=== PATIENT | female | born 1945 | race Caucasian/White ===

== ENCOUNTER 2020-03-12 13:04 | Outpatient (REF) | payer MEDICARE, MEDICAID, SELFPAY | END 2020-03-12 13:05 | disposition home or self-care (01) | LOC: HO.LAB 13:04 | PROVIDERS: PCP Physician Assistant; Visit Provider Internal Medicine | DX: Z20.828 Contact with and (suspected) exposure to other viral communicable diseases (principal) | CPT/HCPCS: 87635 ==

== ENCOUNTER 2020-05-07 12:46 | Outpatient (REF) | payer MEDICARE, MEDICAID, SELFPAY ==
[2020-05-07 13:53] LABS: Glucose Urine UA 250 MG/DL (NEG); Leukocyte Esterase Urine NEG (NEG); Nitrite Urine NEG (NEG); Specific Gravity - Urine 1.015 (1.005-1.025); Urine Blood NEG (NEG); Urine Ketones NEG (NEG); Urine Protein NEG (NEG-TRACE)
[2020-05-07 13:55] LABS: Appearance Urine CLEAR; Color Urine YELLOW
[2020-05-07 14:32] LABS: Creatinine Urine 71.04 mg/dL
== END 2020-05-07 12:47 | disposition home or self-care (01) ==
LOC: HO.HMGCLDS 12:46
PROVIDERS: PCP Physician Assistant; Visit Provider Physician Assistant
DX: R30.0 Dysuria (principal); I10 Essential (primary) hypertension
CPT/HCPCS: 81003; 82043

== ENCOUNTER 2020-06-16 09:10 | Emergency (ER) | payer MEDICARE, MEDICAID, SELFPAY ==
[2020-06-16 09:38] VITALS: BP 112/69; PULSE 72; RESP 16; TEMP 37.1; O2SAT 98; BMI 42.1
--- NOTE | 2020-06-16 09:54 | CT_ITS ---
EXAMINATION: CT ABDOMEN AND PELVIS WITHOUT CONTRAST CLINICAL INFORMATION: Right flank/hip pain COMPARISON: Previous CT of the abdomen and pelvis most recent August 2018 TECHNIQUE: Multidetector volumetric imaging was performed from the superior aspect of the liver through the pubic symphysis. Sagittal and coronal reformatted images were obtained on the technologist's workstation. This CT examination was performed using dose optimization techniques as appropriate, variously including the following: *Automated exposure control *Adjustment of mA and/or kV according to patient size (this includes techniques or standardized protocols for targeted exams where dose is matched to indication/reason for exam; i.e. extremities or head) *Use of iterative reconstruction technique DLP: 1330 mGy-cm FINDINGS: LUNG BASES: The visualized lung bases are clear. The heart is slightly enlarged. There are pacemaker leads. LIVER, GALLBLADDER, AND BILIARY TREE: The liver is normal in size, shape, and attenuation. No focal hepatic lesion or biliary ductal dilatation is present. The gallbladder has been removed. PANCREAS: Unremarkable. SPLEEN: Unremarkable. ADRENAL GLANDS: Unremarkable. KIDNEYS AND URETERS: The kidneys are normal in size, shape, and attenuation. No hydronephrosis, hydroureter, or calculi seen. No perinephric stranding. BLADDER: Unremarkable. GASTROINTESTINAL TRACT: There is stool seen throughout the colon questionable for constipation. The small and large bowel are otherwise unremarkable. The appendix is not identified with certainty. The appendix may be a small for example axial image [id number] series 3. No inflammatory changes in the right lower quadrant are seen to suggest appendicitis. ABDOMINAL WALL: There are multiple anterior abdominal wall hernias. There is a right upper abdominal wall ventral hernia containing fat that measures 4.5 cm. There is a right low ventral or supraumbilical hernia containing fat that measures 10 x 8 x 4 cm. There is a small umbilical hernia containing fat that measures 3 cm. LYMPH NODES: Normal. VASCULAR: Unremarkable. PELVIC VISCERA: There are small calcifications in the uterus. The uterus and adnexa are otherwise unremarkable. OSSEOUS STRUCTURES: There are degenerative changes of the spine. There are degenerative changes of the hip joints. CT/CT abdomen pelvis wo con IMPRESSION: Stool throughout the colon questionable for constipation. Multiple abdominal wall hernias containing fat. 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
--- NOTE | 2020-06-16 09:55 | XR_ITS ---
EXAMINATION: XR CHEST CLINICAL INFORMATION: Pain and leg swelling. COMPARISON: Chest 06/18/2018 TECHNIQUE: Chest FINDINGS: There is mild cardiomegaly with normal pulmonary vascularity. The lungs are expanded and clear. There are pacer electrodes in right atrium and right ventricle. No gross bony abnormality seen XR/XR chest 2V IMPRESSION: Cardiomegaly without congestion. Pacer electrodes in right atrium and right ventricle. No gross bony abnormality.
--- NOTE | 2020-06-16 09:55 | ECG_ITS ---
Test Reason : BACK PAIN Blood Pressure : / mmHG Vent. Rate : 081 BPM Atrial Rate : 081 BPM P-R Int : 212 ms QRS Dur : 184 ms QT Int : 442 ms P-R-T Axes : 065 085 062 degrees QTc Int : 513 ms Sinus rhythm with 1st degree A-V block with Ventricular-paced rhythm Abnormal ECG When compared with ECG of 18-JUN-2018 04:20, T wave inversion less evident in Inferior leads Referred By: Flory Fisher Electronically Signed By:OZIEL CAVAZOS MD
--- NOTE | 2020-06-16 09:58 | ED_ITS ---
HPI - Back Pain/Injury General Chief Complaint: Back Pain/Injury Stated Complaint: back pain Time Seen by Provider: 06/16/20 09:35 Source: patient and EMS Mode of arrival: EMS Limitations: language barrier (LAO-SPEAKING) History of Present Illness HPI Narrative: 74yoF c PMHx of CAD, atrial fibrillation c pace maker in place, type 2 diabetes mellitus, HTN, HLD, lower extremity edema, COPD, nocturnal hypoxemia and GERD presenting to the ED with complaints of lower back pain/right hip pain for the past 2 days. Denies any trauma. Denies any other symptoms complaints or concerns at this time. Patient reports she had called her primary care provider and they had outpatient x-rays for her for today although she was unable to walk down her some flight of stairs from her apartment complex therefore her son called the ambulance. MD elicited complaint: back pain Pertinent past history: prior back pain Onset (ago): day(s) (Two days) Timing: constant Severity: moderate Similar Symptoms Previously: Yes Quality: aching Location: lumbar spine, right flank and right lower back Radiation: none Exacerbating factors: movement and walking Relieving factors: none Associated symptoms: difficulty walking Work related injury: No Related Data Home Medications Medication Instructions Recorded Confirmed albuterol sulfate 90 mcg/actuation 1 puff PO Q4H PRN 03/12/20 06/15/20 aerosol inhaler alcohol swabs pad TOPICAL TID 03/12/20 06/15/20 amitriptyline 25 mg tablet 25 mg PO BEDTIME 03/12/20 06/15/20 blood sugar diagnostic #10 ea 03/12/20 06/15/20 dabigatran etexilate 150 mg capsule 150 mg PO BID 03/12/20 06/15/20 docusate sodium 100 mg capsule 100 mg PO BID PRN 03/12/20 06/15/20 dulaglutide 0.75 mg/0.5 mL 0.75 mg SUBCUT QWEEK 03/12/20 06/15/20 subcutaneous pen injector furosemide 40 mg tablet 40 mg PO DAILY 03/12/20 06/15/20 insulin aspart U-100 100 unit/mL unit SUBCUT 03/12/20 06/15/20 (3 mL) subcutaneous pen isosorbide mononitrate 30 mg 30 mg PO DAILY 03/12/20 06/15/20 tablet,extended release 24 hr lorazepam 0.5 mg tablet 0.5 mg PO BID PRN 03/12/20 06/15/20 gabapentin 300 mg capsule 300 mg PO BID 04/30/20 06/15/20 pen needle, diabetic 32 gauge x #50 ea 04/30/20 06/15/20 insulin aspart U-100 100 unit/mL 100 unit SUBCUT TID ml 05/27/20 06/15/20 (3 mL) subcutaneous pen insulin aspart U-100 100 unit/mL 5 unit SUBCUT TID 06/15/20 06/15/20 (3 mL) subcutaneous pen insulin degludec 100 unit/mL (3 20 unit SUBCUT BID 06/15/20 06/15/20 mL) subcutaneous pen Previous Rx's Medication Instructions Recorded ketoconazole 2 % topical cream 1 applic TOPICAL BID 30 Days #60 g 02/21/20 lancets 28 gauge #100 ea 02/21/20 blood pressure monitor #1 ea 03/12/20 humidifiers #1 ea 03/12/20 flecainide 100 mg tablet 100 mg PO BID #180 tab 03/26/20 losartan 100 mg tablet 100 mg PO DAILY #90 tab 03/26/20 ebkzdclj-niuojgepd-fcnunzaql 3.5 4 drp OTIC (EARS) Q8H 7 Days #10 ml 03/26/20 mg-10,000 unit/mL-1 % ear drops,susp atenolol 50 mg tablet 50 mg PO DAILY #30 tab 04/21/20 blood sugar diagnostic 1 strip MISCELLANEOUS QID #400 04/28/20 strip pen needle, diabetic 32 gauge x #100 ea 04/28/2005/18 pen needle, diabetic 32 gauge x #100 ea 04/30/20 1/ oxycodone 5 mg tablet 5 mg PO BID 30 Days #60 tab 05/14/20 insulin degludec 100 unit/mL (3 65 unit SUBCUT BID 30 Days #39 ml 05/27/20 mL) subcutaneous pen ketoconazole 2 % topical cream 1 appl TOPICAL BID 30 Days #60 g 05/27/20 nitrofurantoin macrocrystal 100 mg 100 mg PO BID 7 Days #14 cap 05/28/20 capsule baclofen 10 mg tablet 10 mg PO BID 10 Days #20 tab 06/04/20 colchicine 0.6 mg tablet 0.6 mg PO DAILY #90 tab 06/08/20 simvastatin 40 mg tablet 40 mg PO BEDTIME #90 tab 06/08/20 hydrocortisone 1 % topical cream 1 appl TOPICAL BID 30 Days #28 g 06/10/20 clotrimazole-betamethasone 1 1 appl TOPICAL BID 30 Days #45 g 06/11/20 %-0.05 % topical cream canagliflozin 100 mg tablet 100 mg PO DAILY 30 Days #30 tab 06/15/20 acetaminophen-codeine 1 tab PO Q8H PRN #10 tab 06/16/20 cyclobenzaprine 10 mg PO TID PRN #10 tab 06/16/20 docusate sodium [Colace] 100 mg PO BID #10 cap 06/16/20 Allergies Allergy/AdvReac Type Severity Reaction Status Date / Time dapagliflozin [From [facility]] Allergy Unknown yeast Verified 06/15/20 14:16 infection metformin Allergy Unknown Diarrhea Verified 06/15/20 14:16 Review of Systems Review of Systems: Constitutional : No trauma, No Weight loss, No Fever, No Chills, ENT/Mouth : No Hearing loss, No Ear Pain, No Nasal Congestion, No Sinus Pain, No Hoarseness, No sore throat, No Rhinorrhea, No Swallowing Difficulty Cardiovascular : No Chest Pain, No SOB Respiratory : No Cough, No Dyspnea Gastrointestinal : No Nausea, No Vomiting, No Diarrhea, No abdominal Pain, No Hematochezia, No Melena Genitourinary : No Dysuria, No Urinary Frequency, No Hematuria, No Urinary or Bowel Incontinence/retention Musculoskeletal : + Back pain, No neck pain, No joint stiffness, No joint swelling Skin : No Skin Lesions, No rash or signs of infection Neuro : No Weakness, No radiation, No Numbness, No Paresthesias, No headache, no loss of bowel or bladder incontinence, no saddle anesthesia, Focal weakness, No radiation Denies history of IV drug usage. Yes all other systems are reviewed and are negative [facility] Past Medical History Attestation statement: The following information was validated with the patient. Medical History Pacemaker Surgical History History of cataract surgery History of pacemaker Family History Family History Father No problems noted. Mother No problems noted. Social History Social History Alcohol intake: never Smoking Status: Never smoker Smoked in Last 30 Days: No Use of substances other than those prescribed or required for medical reasons: No Advance Directives: Yes Advance Directives Information Provided: Yes Advance Directives on File: No Physical Exam Vital Signs: Vital Signs: Last Vital Signs Temp 98.9 F 06/16/20 14:59 Pulse 74 06/16/20 14:59 Resp 16 06/16/20 14:59 BP 127/48 L 06/16/20 14:59 Pulse Ox 96 06/16/20 14:59 Body Mass Index 42.1 vital signs have been reviewed as normal and appeared to be correct. Blood pressure normal. Heart rate normal. Respiration rate normal. Temperature normal. Oxygen saturation normal. Appearance: Alert. Oriented X3. No acute distress. Head: Normal external exam. Normocephalic. Atraumatic. No Polanco signs noted. No raccoon eyes noted Eyes: PERRLA. EOMI. Conjunctiva and sclera normal. Eyelids normal. ENT: EAC normal. TM's Normal. Pharynx normal. Uvula midline. Moist mucous membranes. No trismus noted. No drooling noted. No muffled voice noted. Neck: Normal inspection. Neck supple. FROM. No adenopathy. Thyroid Normal. No meningeal signs. No neck mass noted. CVS: Normal heart rate and rhythm. Heart sound normal. No murmurs noted. Pulses normal throughout. Respiratory: No respiratory distress. Painless inspiration. Breath sounds normal. No wheezes/rales/rhonchi noted. Chest nontender. No accessory muscle usage noted or decreased air movement noted. Abdomen: Soft and nontender. Bowel sounds normal in all 4 quadrants. No distention noted. No organomegaly noted. No visible injury noted. Back: No CVA tenderness. Full range of motion noted. No obvious deformities, or edema. Mild para-spinal muscular tenderness from lumbar region to coccyx. Full ROM in back and lower extremities. 5/5 strength hip extension/flexion, abduction, adduction. Mild Lumbar pain with hip flexion against resistance. Straight leg raise test negative on right; Straight leg raise test negative on left; Reflexes normal ankle and knee bilaterally; EHL motor strength normal bilaterally Skin: Skin warm and dry. Normal skin color. Normal skin turgor. No rashes /lesions/lacerations noted. Extremities: Bilateral +2 pitting edema to lower extremities. No calf tenderness noted. Extremities exhibit normal range of motion. Extremities nontender. Vascular: +2 pedal pulses b/l. Neuro: Oriented X 3. No motor deficit. No sensory deficit. Reflexes normal. Course Course Course Narrative: Pt c likely muscular pain, but could be herniated disc. Neuro exam shows no deficits. Not c/w AAA/epidural abscess/dissection.No high risk Hx (Incont, fever, immunosupp, recent surgery/LP, coag, signif trauma, wt loss, puls mass, hx/o Ca, TB, or IVDU) to warrant MRI today. Not cauda equina syndrome. Not consistent with spinal fracture. - patient is alert and oriented x3. Not in any acute distress. Vital signs are stable within normal limits. On exam patient is noted to have bilateral lower extremity pitting edema although no calf tenderness and she has positive distal pulses. No focal neuro deficits noted. Mild pain to right hip/right lumbar spine/right flank. No obvious deformities noted. - therefore will obtain labs including BNP, an EKG, CT scan of abdomen and pelvis without contrast to evaluate for possible kidney stones, UA to evaluate for possible UTI or pyelonephritis. I offered the patient pain medication although she is declining at this time due to she reports she did not eat this morning. Will re-evaluate. Reevaluation(s) Reevaluation #1: - Magnesium 1.3. - troponin 11.9. Second troponin 14.2 therefore negative delta. Patient denies any chest pain and EKG is similar compared to prior EKG. - all other labs are within normal limits. - UA within normal limits no evidence of UTI. COVID/flu/RSV negative. - CXR revealed cardiomegaly without congestion pacer electrodes and right atrium and right ventricle. No gross bony abnormality noted. - CT scan of abdomen and pelvis revealed constipation, multiple abdominal wall hernias containing fat and severe degenerative changes of spine and hips no other acute processes noted. - replacing the patient's magnesium with 2 g of magnesium IV at this time. Will give the patient Tylenol with codeine for her hip pain. - I consulted with the patient's daughter and recommended physical therapy with short-term rehab although they are refusing short-term rehab placement due to they report the mother will not want to go to short-term rehab although they would like to have physical therapy in the home therefore case management is involved. - patient can be discharged after the magnesium with symptomatic treatment along with instructions to return if any new or worsening symptoms. Case management will be speaking with the daughter for outpatient physical therapy with [facility]. Patient, daughter and family understand and agree plan. Time: 14:53 MDM - Back Pain/Injury Medical Records Attestation: I reviewed the patient's medical records. Lab Data Attestation: I reviewed the patient's lab results. Result diagrams: 06/16/20 10:49 06/16/20 10:49 Labs: Lab Results 06/16/20 06/16/20 06/16/20 Range/Units 10:44 10:49 10:49 WBC 8.5 (4.8-10.8) X10*3/uL RBC 4.49 (4.20-5.50) X10*6/uL Hgb 12.7 (12.0-16.0) g/dl Hct 38.5 (37-47) % MCV 85.7 (80-98) fL MCH 28.3 (27.0-33.0) pg MCHC 33.0 (31.0-35.0) g/dl RDW 12.9 (11.0-16.0) % Plt Count 201 (160-400) X10*3/uL MPV 10.5 (9.4-12.3) fL Immature Gran % (Auto) 0.6 H (0.0-0.4) % Neut % (Auto) 67.9 (45-73) % Lymph % (Auto) 23.3 (20-40) % Cross % (Auto) 6.5 (2-11) % Eos % (Auto) 1.6 (0-4) % Baso % (Auto) 0.1 (0-2) % Lymph # (Auto) 2.0 (1.2-4.9) X10*3/uL Cross # (Auto) 0.6 (0.1-1.2) X10*3/uL Eos # (Auto) 0.1 (0.0-0.4) X10*3/uL Baso # (Auto) 0.0 (0.0-0.2) X10*3/uL Abs Immat Gran (auto) 0.05 H (0.00-0.03) X10*3/uL Absolute Neuts (auto) 5.8 (2.0-8.3) X10*3/uL Absolute Nucleated RBC 0.000 (0.0-0.012) X10*3/uL Nucleated RBC % (auto) 0.0 (0.0-0.2) /100WBC PT 14.2 H (10.8-13.0) SEC INR 1.2 H (0.9-1.1) Sodium (135-145) mmol/L Potassium (3.3-5.1) mmol/L Chloride (96-108) mmol/L Carbon Dioxide (22-29) mmol/L Anion Gap (12-20) BUN (9-16) mg/dL Creatinine (0.5-1.4) mg/dL Estim Creat Clear Calc Estimated GFR POC Glucose (60-115) mg/dL Random Glucose (60-115) mg/dL Calcium (8.4-10.2) mg/dL Magnesium (1.6-2.6) mg/dL Total Bilirubin (0.0-1.0) mg/dL Direct Bilirubin (0.0-0.5) mg/dL AST (5-31) U/L ALT (0-31) U/L Alkaline Phosphatase (39-117) U/L Troponin I High Sens (<3.5-17.0) ng/L B-Natriuretic Peptide (<100) pg/mL Total Protein (6.5-8.0) g/dL Albumin (3.5-5.0) g/dL Urine Color Urine Appearance Urine pH (5.0-8.0) Ur Specific Cay[place] (1.005-1.025) Urine Protein (NEG-TRACE) MG/DL Urine Glucose (UA) (NEG) MG/DL Urine Ketones (NEG) MG/DL Urine Blood (NEG) Urine Nitrite (NEG) Ur Leukocyte Esterase (NEG) Coronavirus (PCR) NEGATIVE (Negative) Influenza Type A (PCR) NEGATIVE (Negative) Influenza Type B (PCR) NEGATIVE (Negative) RSV RNA Qual (PCR) NEGATIVE (Negative) 06/16/20 06/16/20 06/16/20 Range/Units 10:49 10:49 10:49 WBC (4.8-10.8) X10*3/uL RBC (4.20-5.50) X10*6/uL Hgb (12.0-16.0) g/dl Hct (37-47) % MCV (80-98) fL MCH (27.0-33.0) pg MCHC (31.0-35.0) g/dl RDW (11.0-16.0) % Plt Count (160-400) X10*3/uL MPV (9.4-12.3) fL Immature Gran % (Auto) (0.0-0.4) % Neut % (Auto) (45-73) % Lymph % (Auto) (20-40) % Cross % (Auto) (2-11) % Eos % (Auto) (0-4) % Baso % (Auto) (0-2) % Lymph # (Auto) (1.2-4.9) X10*3/uL Cross # (Auto) (0.1-1.2) X10*3/uL Eos # (Auto) (0.0-0.4) X10*3/uL Baso # (Auto) (0.0-0.2) X10*3/uL Abs Immat Gran (auto) (0.00-0.03) X10*3/uL Absolute Neuts (auto) (2.0-8.3) X10*3/uL Absolute Nucleated RBC (0.0-0.012) X10*3/uL Nucleated RBC % (auto) (0.0-0.2) /100WBC PT (10.8-13.0) SEC INR (0.9-1.1) Sodium 139 (135-145) mmol/L Potassium 5.0 (3.3-5.1) mmol/L Chloride 101 (96-108) mmol/L Carbon Dioxide 30 H (22-29) mmol/L Anion Gap 13 (12-20) BUN 15 (9-16) mg/dL Creatinine 0.81 (0.5-1.4) mg/dL Estim Creat Clear Calc 82.5 Estimated GFR > 60 POC Glucose (60-115) mg/dL Random Glucose 274 H (60-115) mg/dL Calcium 9.8 (8.4-10.2) mg/dL Magnesium 1.3 L* (1.6-2.6) mg/dL Total Bilirubin 0.6 (0.0-1.0) mg/dL Direct Bilirubin 0.2 (0.0-0.5) mg/dL AST 19 (5-31) U/L ALT 17 (0-31) U/L Alkaline Phosphatase 102 (39-117) U/L Troponin I High Sens 11.9 (<3.5-17.0) ng/L B-Natriuretic Peptide 113 H (<100) pg/mL Total Protein 6.5 (6.5-8.0) g/dL Albumin 4.0 (3.5-5.0) g/dL Urine Color Urine Appearance Urine pH (5.0-8.0) Ur Specific Cayce (1.005-1.025) Urine Protein (NEG-TRACE) MG/DL Urine Glucose (UA) (NEG) MG/DL Urine Ketones (NEG) MG/DL Urine Blood (NEG) Urine Nitrite (NEG) Ur Leukocyte Esterase (NEG) Coronavirus (PCR) (Negative) Influenza Type A (PCR) (Negative) Influenza Type B (PCR) (Negative) RSV RNA Qual (PCR) (Negative) 06/16/20 06/16/20 06/16/20 Range/Units 11:16 12:03 13:54 WBC (4.8-10.8) X10*3/uL RBC (4.20-5.50) X10*6/uL Hgb (12.0-16.0) g/dl Hct (37-47) % MCV (80-98) fL MCH (27.0-33.0) pg MCHC (31.0-35.0) g/dl RDW (11.0-16.0) % Plt Count (160-400) X10*3/uL MPV (9.4-12.3) fL Immature Gran % (Auto) (0.0-0.4) % Neut % (Auto) (45-73) % Lymph % (Auto) (20-40) % Cross % (Auto) (2-11) % Eos % (Auto) (0-4) % Baso % (Auto) (0-2) % Lymph # (Auto) (1.2-4.9) X10*3/uL Cross # (Auto) (0.1-1.2) X10*3/uL Eos # (Auto) (0.0-0.4) X10*3/uL Baso # (Auto) (0.0-0.2) X10*3/uL Abs Immat Gran (auto) (0.00-0.03) X10*3/uL Absolute Neuts (auto) (2.0-8.3) X10*3/uL Absolute Nucleated RBC (0.0-0.012) X10*3/uL Nucleated RBC % (auto) (0.0-0.2) /100WBC PT (10.8-13.0) SEC INR (0.9-1.1) Sodium (135-145) mmol/L Potassium (3.3-5.1) mmol/L Chloride (96-108) mmol/L Carbon Dioxide (22-29) mmol/L Anion Gap (12-20) BUN (9-16) mg/dL Creatinine (0.5-1.4) mg/dL Estim Creat Clear Calc Estimated GFR POC Glucose 218 H (60-115) mg/dL Random Glucose (60-115) mg/dL Calcium (8.4-10.2) mg/dL Magnesium (1.6-2.6) mg/dL Total Bilirubin (0.0-1.0) mg/dL Direct Bilirubin (0.0-0.5) mg/dL AST (5-31) U/L ALT (0-31) U/L Alkaline Phosphatase (39-117) U/L Troponin I High Sens 14.2 (<3.5-17.0) ng/L B-Natriuretic Peptide (<100) pg/mL Total Protein (6.5-8.0) g/dL Albumin (3.5-5.0) g/dL Urine Color YELLOW Urine Appearance CLEAR Urine pH 6.0 (5.0-8.0) Ur Specific Cay[place] 1.010 (1.005-1.025) Urine Protein NEG (NEG-TRACE) MG/DL Urine Glucose (UA) NEG (NEG) MG/DL Urine Ketones NEG (NEG) MG/DL Urine Blood NEG (NEG) Urine Nitrite NEG (NEG) Ur Leukocyte Esterase NEG (NEG) Coronavirus (PCR) (Negative) Influenza Type A (PCR) (Negative) Influenza Type B (PCR) (Negative) RSV RNA Qual (PCR) (Negative) Imaging Data Chest x-ray: Attestation: I personally reviewed and interpreted this imaging study as follows: Radiologist's impression: FINDINGS: There is mild cardiomegaly with normal pulmonary vascularity. The lungs are expanded and clear. There are pacer electrodes in right atrium and right ventricle. No gross bony abnormality seen XR/XR chest 2V IMPRESSION: Cardiomegaly without congestion. Pacer electrodes in right atrium and right ventricle. No gross bony abnormality. CT scan of abdomen and pelvis without contrast: Attestation: I personally reviewed and interpreted this imaging study as follows: Radiologist's impression: FINDINGS: LUNG BASES: The visualized lung bases are clear. The heart is slightly enlarged. There are pacemaker leads. LIVER, GALLBLADDER, AND BILIARY TREE: The liver is normal in size, shape, and attenuation. No focal hepatic lesion or biliary ductal dilatation is present. The gallbladder has been removed. PANCREAS: Unremarkable. SPLEEN: Unremarkable. ADRENAL GLANDS: Unremarkable. KIDNEYS AND URETERS: The kidneys are normal in size, shape, and attenuation. No hydronephrosis, hydroureter, or calculi seen. No perinephric stranding. BLADDER: Unremarkable. GASTROINTESTINAL TRACT: There is stool seen throughout the colon questionable for constipation. The small and large bowel are otherwise unremarkable. The appendix is not identified with certainty. The appendix may be a small for example axial image 60-66 series 3. No inflammatory changes in the right lower quadrant are seen to suggest appendicitis. ABDOMINAL WALL: There are multiple anterior abdominal wall hernias. There is a right upper abdominal wall ventral hernia containing fat that measures 4.5 cm. There is a right low ventral or supraumbilical hernia containing fat that measures 10 x 8 x 4 cm. There is a small umbilical hernia containing fat that measures 3 cm. LYMPH NODES: Normal. VASCULAR: Unremarkable. PELVIC VISCERA: There are small calcifications in the uterus. The uterus and adnexa are otherwise unremarkable. OSSEOUS STRUCTURES: There are degenerative changes of the spine. There are degenerative changes of the hip joints. CT/CT abdomen pelvis wo con IMPRESSION: Stool throughout the colon questionable for constipation. Multiple abdominal wall hernias containing fat. 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 ECG Data Attestation: I personally reviewed and interpreted this ECG as follows: ECG interpretation date: 06/16/20 ECG interpretation time: 10:28 Interpretation: Sinus rhythm with 1st degree AV block with a ventricular rate of 81 with a left bundle branch block similar when compared to prior EKG on 06/18/2018 no acute ischemic changes noted today. Critical Care Time Critical Care Time Critical Care Time: Yes Total Critical Care Time: 60 Attestation: I personally attest to this time spent taking care of the patient Discharge Plan Discharge Clinical Impression: Cardiomegaly, Pedal edema, Elevated troponin, Constipation, Abdominal wall hernia, Degenerative joint disease of both hips, Degenerative joint disease (DJD) of lumbar spine, Low blood magnesium Patient Disposition: Home, Self-Care Instructions: Constipation (ED), Osteoarthritis (ED), Hypomagnesemia (ED), Degenerative Disc Disease (ED) Additional Instructions: Your offered physical therapy and short-term rehab today although you in your daughter refused therefore case management will reach out to visiting nurses [facility] for outpatient possibly in the home physical therapy. Return if any new or worsening symptoms. Follow up with her primary care provider. Continue taking medications as previously prescribed. Prescriptions: New acetaminophen-codeine 300-30 mg tablet 1 tab PO Q8H PRN (Reason: pain) Qty: 10 RF: 0 docusate sodium [Colace] 100 mg capsule 100 mg PO BID Qty: 10 RF: 0 cyclobenzaprine 10 mg tablet 10 mg PO TID PRN (Reason: muscle spasm) Qty: 10 RF: 0 No Action (DME) lancets [FreeStyle Lancets] 28 gauge misc See Rx Instructions .ROUTE .MEDSUPPLY Qty: 100 RF: 3 ketoconazole 2 % cream 1 applic topical BID 30 Days Qty: 60 RF: 3 evhfeemj-euilaphrr-FU 3.5-10,000-1 mg/mL-unit/mL-% drops,suspension 4 drp otic (ears) Q8H 7 Days Qty: 10 RF: 0 losartan 100 mg tablet 100 mg PO DAILY Qty: 90 RF: 1 flecainide 100 mg tablet 100 mg PO BID Qty: 180 RF: 1 atenolol 50 mg tablet 50 mg PO DAILY Qty: 30 RF: 3 FreeStyle Lite Strips Strip 1 strip miscellaneous QID Qty: 400 RF: 3 (DME) pen needle, diabetic 32 gauge x 1/4 needle See Rx Instructions ea subcut TID Qty: 100 RF: 3 oxycodone 5 mg tablet 5 mg PO BID 30 Days Qty: 60 RF: 0 insulin aspart U-100 100 unit/mL (3 mL) insulin pen 100 unit subcut TID RF: 0 ketoconazole 2 % cream 1 appl topical BID 30 Days Qty: 60 RF: 1 insulin degludec 100 unit/mL (3 mL) insulin pen 65 unit subcut BID 30 Days Qty: 39 RF: 2 baclofen 10 mg tablet 10 mg PO BID 10 Days Qty: 20 RF: 0 simvastatin 40 mg tablet 40 mg PO BEDTIME Qty: 90 RF: 2 colchicine [Colcrys] 0.6 mg tablet 0.6 mg PO DAILY Qty: 90 RF: 2 hydrocortisone 1 % cream 1 appl topical BID 30 Days Qty: 28 RF: 2 clotrimazole-betamethasone 1-0.05 % cream 1 appl topical BID 30 Days Qty: 45 RF: 3 (DME) FreeStyle Lite Strips Strip See Rx Instructions strip Not Applicable QID Qty: 10 RF: 0 albuterol sulfate 90 mcg/actuation HFA aerosol inhaler 1 puff PO Q4H PRNRF: 0 lorazepam 0.5 mg tablet 0.5 mg PO BID PRN (Reason: anxiety) RF: 0 Pradaxa 150 mg capsule 150 mg PO BID RF: 0 isosorbide mononitrate 30 mg tablet extended release 24 hr 30 mg PO DAILY RF: 0 amitriptyline 25 mg tablet 25 mg PO BEDTIME RF: 0 docusate sodium 100 mg capsule 100 mg PO BID PRNRF: 0 insulin aspart U-100 100 unit/mL (3 mL) insulin pen subcut RF: 0 Trulicity 0.75 mg/0.5 mL pen injector 0.75 mg subcut QWEEK RF: 0 furosemide 40 mg tablet 40 mg PO DAILY RF: 0 alcohol swabs Pads, Medicated topical TID RF: 0 (DME) blood pressure monitor [Blood Pressure Kit] Kit See Rx Instructions .ROUTE .MEDSUPPLY Qty: 1 RF: 0 (DME) humidifiers [Cool Mist Humidifier] Misc See Rx Instructions .ROUTE .MEDSUPPLY Qty: 1 RF: 0 insulin aspart U-100 [Novolog Flexpen U-100 Insulin] 100 unit/mL (3 mL) in sulin pen 5 unit subcut TID RF: 0 Tresiba FlexTouch U-100 100 unit/mL (3 mL) insulin pen 20 unit subcut BID RF: 0 Invokana 100 mg tablet 100 mg PO DAILY 30 Days Qty: 30 RF: 1 (DME) pen needle, diabetic 32 gauge x 5/32 needle See Rx Instructions ea .ROUTE .MEDSUPPLY Qty: 50 RF: 0 gabapentin 300 mg capsule 300 mg PO BID RF: 0 (DME) pen needle, diabetic [BD Ultra-Fine Micro Pen Needle] 32 gauge x 1/4 needle See Rx Instructions .ROUTE .MEDSUPPLY Qty: 100 RF: 3 nitrofurantoin macrocrystal 100 mg capsule 100 mg PO BID 7 Days Qty: 14 RF: 0 Referrals: [facility] [Outside] - 2 days ([facility], home OT/PT Services will start 06/18/20, please call above number if you have not heard from them by noon on 06/17/20) Micheal Biggs PA-C [Primary Care Provider] - 2 days Print Language: Djiboutian
[2020-06-16 10:56] LABS: MANUAL DIFF FLAG NO
[2020-06-16 11:00] LABS: Basophils Percent Auto 0.1 % (0-2); Eosinophils Absolute Auto 0.1 X10*3/uL (0.0-0.4); Eosinophils Percent Auto 1.6 % (0-4); Hematocrit 38.5 % (37-47); Hemoglobin 12.7 g/dl (12.0-16.0); Imm Gran Abs Auto 0.05 X10*3/uL (0.00-0.03); Imm Gran Pct Auto 0.6 % (0.0-0.4); Lymphocytes Percent Auto 23.3 % (20-40); Mean Corpuscular Hemoglobin 28.3 pg (27.0-33.0); Mean Corpuscular Volume 85.7 fL (80-98); Mean Platelet Volume 10.5 fL (9.4-12.3); Monocytes Absolute Auto 0.6 X10*3/uL (0.1-1.2); Monocytes Percent Auto 6.5 % (2-11); Neutrophils Absolute Auto 5.8 X10*3/uL (2.0-8.3); Neutrophils Percent Auto 67.9 % (45-73); Platelet Count 201 X10*3/uL (160-400); Red Blood Count 4.49 X10*6/uL (4.20-5.50); Red Cell Distribution Width 12.9 % (11.0-16.0); White Blood Count 8.5 X10*3/uL (4.8-10.8)
[2020-06-16 11:09] LABS: INTERNATIONAL NORM RATIO 1.2 (0.9-1.1); Prothrombin Time 14.2 SEC (10.8-13.0)
[2020-06-16 11:26] LABS: Appearance Urine CLEAR; Color Urine YELLOW; Glucose Urine UA NEG (NEG); Leukocyte Esterase Urine NEG (NEG); Nitrite Urine NEG (NEG); Urine Blood NEG (NEG); Urine Ketones NEG (NEG); Urine Protein NEG (NEG-TRACE)
[2020-06-16 11:31] LABS: B Type Natriuretic Peptide 113 pg/mL (<100); Troponin-I High Sensitivity 11.9 ng/L (<3.5-17.0)
[2020-06-16 11:36] VITALS: BP 126/42; PULSE 72; RESP 16; TEMP 37.1; O2SAT 94
[2020-06-16 11:53] LABS: Alanine Aminotransferase 17 U/L (0-31); Alkaline Phosphatase 102 U/L (39-117); Anion Gap 13 (12-20); Aspartate Amino Transferase 19 U/L (5-31); Bilirubin Direct 0.2 mg/dL (0.0-0.5); Bilirubin Total 0.6 mg/dL (0.0-1.0); Blood Urea Nitrogen 15 mg/dL (9-16); Calcium 9.8 mg/dL (8.4-10.2); Carbon Dioxide 30 mmol/L (22-29); Chloride 101 mmol/L (96-108); Creatinine Clr Calc Pharmacy 82.5; Estimated Glomerular Filt Rate > 60; Glucose Random 274 mg/dL (60-115); Magnesium 1.3 mg/dL (1.6-2.6); Sodium 139 mmol/L (135-145); Total Protein 6.5 g/dL (6.5-8.0)
[2020-06-16 11:54] LABS: Influenza A PCR NEGATIVE (Negative); Influenza B PCR NEGATIVE (Negative); Resp Syncy Virus RNA Qual PCR NEGATIVE (Negative); SARS COV2 PCR INHOUSE NEGATIVE (Negative)
[2020-06-16 12:06] LABS: Glucose, Whole Blood 218 mg/dL (60-115)
[2020-06-16 13:12] VITALS: BP 136/48; PULSE 71; RESP 18; TEMP 37.1; O2SAT 98
--- NOTE | 2020-06-16 14:03 | MHC.CM.PN ---
EMR REVIEWED, CM MET WITH PT AND MUD GRINDER AND PT REPORTS HER DAUGHTER ASSISTS HER WITH ALL OF HER CARE, PT REPORTS PROPERTY OFFICER (DAUGHTER) THROUGH [facility], PT REPORTS SHE HAS HOME O2 THROUGH [facility] AND THAT SHE USES IT AT NIGHT AND IN THE MORNING, DAUGHTER/HCP VERIFIED WITH CM THAT PT USES IT AT NIGHT ONLY, PT DID GIVE CM VERBAL PERMISSION TO SPEAK WITH DAUGHTER WHO VERIFIED PT HAS AN HCP ON FILE AT PT'S PCP OFFICE, COPY WAS REQUESTED BY CM. PT AND DAUGHTER ARE OK WITH [facility] AND HOME PT, PER DAUGHTER PT HAD PT THROUGH [facility] AND LIKED HER PHYSICAL THERAPIST SO CM WILL SEND REFERRAL TO [facility]. PER ER PROVIDER PT WILL NEED REPEAT TROPININ PRIOR TO BEING MEDICALLY CLEARED. DISCHARGE PLAN: HOME W/[facility] AND HOME PT, MAY NEED TRANSPORTATION HOME DUE TO NOT BEING ABLE TO MANAGE STAIRS AND PT HAS ONE FLIGHT OF STAIRS, UNSURE OF NUMBER.
[2020-06-16 14:35] LABS: Troponin-I High Sensitivity 14.2 ng/L (<3.5-17.0)
--- NOTE | 2020-06-16 14:43 | MHC.CM.PN ---
CM COMPLETED NEW HCP WITH PT DUE TO COPY FROM [facility] OFFICE NOT DATED WHERE REQUIRED, PT GIVEN ORIGINAL AND COPY UPLOADED TO [facility] AND PLACED IN FILE WITH PT'S PERMISSION.
[2020-06-16 14:59] VITALS: BP 127/48; PULSE 74; RESP 16; TEMP 37.2; O2SAT 96
[2020-06-16] MEDS: Magnesium Sulfate/H2O 2 GM/50 ML PIGGYBACK IV (15:02)
--- NOTE | 2020-06-16 15:50 | MHC.CM.PN ---
PT DISCHARGING HOME W/[facility] FOR CORRECTION AND HOME OT/PT, BLS TRANSPORT VIA [facility]. CM VERIFIED PT'S PARTNER WILL BE HOME W/PT'S DAUGHTER AND HCP FE [phone].
--- NOTE | 2020-06-16 16:55 | PC.NURSE ---
DC HOME. LEFT BY AMBULANCE
== END 2020-06-16 16:56 | disposition home or self-care (01) ==
PROVIDERS: Physician Assistant Medical; Emergency Provider Emergency Medicine; PCP Physician Assistant
DX: I51.7 Cardiomegaly (principal); R60.9 Edema, unspecified; R77.8 Other specified abnormalities of plasma proteins; K59.00 Constipation, unspecified; K43.9 Ventral hernia without obstruction or gangrene; M16.0 Bilateral primary osteoarthritis of hip; M47.896 Other spondylosis, lumbar region; E83.42 Hypomagnesemia; Z20.822 Contact with and (suspected) exposure to COVID-19; Z95.0 Presence of cardiac pacemaker; I48.91 Unspecified atrial fibrillation; E11.9 Type 2 diabetes mellitus without complications; E78.5 Hyperlipidemia, unspecified; J44.9 Chronic obstructive pulmonary disease, unspecified; K21.9 Gastro-esophageal reflux disease without esophagitis; Z79.899 Other long term (current) drug therapy; Z79.4 Long term (current) use of insulin
CPT/HCPCS: 0241U; 36415; 71046; 74176; 80048; 80076; 81003; 82947; 83735; 83880; 84484; 85025; 85610; 93005; 96365; 96366; 99284; 99291; J3475

== ENCOUNTER 2020-07-16 18:43 | Outpatient (REF) | payer MEDICARE, MEDICAID, SELFPAY | END 2020-07-16 18:44 | disposition home or self-care (01) | LOC: HO.LNP 18:43 | PROVIDERS: Visit Provider Physician Assistant | DX: L03.115 Cellulitis of right lower limb (principal) | CPT/HCPCS: 87071; 87205 ==

== ENCOUNTER → 2020-08-25 09:56 | Outpatient (REF) | payer MEDICARE, MEDICAID, SELFPAY ==
--- NOTE | 2020-08-25 09:30 | CA_ITS ---
Transthoracic Echocardiogram Patient (Last, First, Middle): Lizzie Lemus, Gender: Female Date of : 1945 Age: 74 Procedure Date: 08/25/2020 Procedure Type: Transthoracic Echocardiogram Location: OP Height: 165.1 cm Weight: 119.75 kg BSA: 2.23 m2 Heart Rate: bpm BP: 128 / 80 mmHg Community Assistant: Referring MD: Charity GIRON Symptoms: I42.9 CMP Study Quality: Fair ECG Rhythm: Sinus Conclusions: - Even with contrast, assessment is suboptimal. - The left ventricular systolic function is normal. The visually estimated ejection fraction is between 60-65%. Findings Procedure Information Contrast agent, definity, is being given per protocol without apparent complications. Left Ventricle Normal left ventricular cavity size. There is moderately increased left ventricular wall thickness. The left ventricular systolic function is normal. The visually estimated ejection fraction is between 60-65%. Regional wall motion abnormalities can not be excluded due to suboptimal endocardial definition. E/E prime ratio is between 8 and 15 consistent with indeterminate filling pressures. Evidence suggests grade I (mild) diastolic dysfunction. Prior Study Comparison No significant change compared to prior study dated: 04/01/2015. Measurements 2D Linear Measurements IVSd: 1.46 0.6-0.9/0.6-1.0 cm LVIDd: 4.63 3.9-5.3/4.2-5.9 cm LVIDd Index: 2.08 2.4-3.2/2.2-3.1 cm/m2 LVIDs: 3.15 2.0-3.6 cm LVPWd: 1.42 0.7-1.1 cm LV Mass: 337.28 67-162/88-224 g LV Mass Index: 151.25 43-95/49-115 g/m2 2D Systolic Function EF 4C: 71.80 >55% EF 2C: 73.10 >55% EF BiP: 73.90 >55% Mitral Valve MV Pk E: 0.68 MV PK A: 1.06 MV Decel Time: 60.00 E/A: 0.60 E'Lateral: 3.77 E'Medial: 6.67 E/E' Med: 10.30 E/E' Lat: 18.10 PHT: 18.00 MVA PHT: 12.22 Decel Wilson: 11.43 Diastolic Function MV Pk E: 0.68 MV Pk A: 1.06 E/A: 0.60 E'Medial: 6.67 E/E' Med: 10.30 E' Laterial: 3.77 E/E' Lat: 18.10 Updated in Other Vendor System with Status of Final Pierce Emmanuel MD electronically signed on 08/25/2020 11:35:42 AM with status of Final
== END ==
LOC: HO.CARD 09:56
PROVIDERS: Visit Provider Physician Assistant Medical
DX: I42.9 Cardiomyopathy, unspecified (principal)
CPT/HCPCS: 93308; Q9957

== ENCOUNTER 2021-01-29 11:18 | Outpatient (REF) | payer MEDICARE, MEDICAID, SELFPAY ==
--- NOTE | ~2021-01-29 | XR_ITS ---
EXAMINATION: XR KNEE, RIGHT XR KNEE, LEFT CLINICAL INFORMATION: Osteoarthritis. COMPARISON: Right knee radiographs dated 03/10/2017. Left lower leg radiographs dated 09/07/2016. TECHNIQUE: AP and lateral views of the right and left knee. FINDINGS: Right Knee: Severe medial compartment joint space narrowing with subchondral sclerosis and mild bony remodeling. Tricompartmental marginal osteophytes and subchondral cystic change. No fracture or dislocation. No significant joint effusion. Left Knee: Severe medial compartment joint space narrowing with bony remodeling. Large tricompartmental marginal osteophytes. No fracture or dislocation. Atherosclerotic calcifications. No significant joint effusion. XR/XR knee RT 2V IMPRESSION: RIGHT KNEE: Tricompartmental osteoarthritis, most severe within the medial compartment, progressed when compared to the prior radiographs. LEFT KNEE: Tricompartmental osteoarthritis, most severe within the medial compartment, progressed when compared to the prior radiographs.
--- NOTE | ~2021-01-29 | XR_ITS ---
EXAMINATION: XR KNEE, RIGHT XR KNEE, LEFT CLINICAL INFORMATION: Osteoarthritis. COMPARISON: Right knee radiographs dated 03/10/2017. Left lower leg radiographs dated 09/07/2016. TECHNIQUE: AP and lateral views of the right and left knee. FINDINGS: Right Knee: Severe medial compartment joint space narrowing with subchondral sclerosis and mild bony remodeling. Tricompartmental marginal osteophytes and subchondral cystic change. No fracture or dislocation. No significant joint effusion. Left Knee: Severe medial compartment joint space narrowing with bony remodeling. Large tricompartmental marginal osteophytes. No fracture or dislocation. Atherosclerotic calcifications. No significant joint effusion. XR/XR knee LT 2V IMPRESSION: RIGHT KNEE: Tricompartmental osteoarthritis, most severe within the medial compartment, progressed when compared to the prior radiographs. LEFT KNEE: Tricompartmental osteoarthritis, most severe within the medial compartment, progressed when compared to the prior radiographs.
== END 2021-01-29 11:19 | disposition home or self-care (01) ==
LOC: HO.HMGCX 11:18
PROVIDERS: PCP Physician Assistant; Visit Provider Physician Assistant
DX: Z13.89 Encounter for screening for other disorder (principal)
CPT/HCPCS: 73560

== ENCOUNTER 2021-03-24 12:06 | Emergency (ER) | payer MEDICARE, MEDICAID, SELFPAY ==
--- NOTE | ~2021-03-24 | XR_ITS ---
EXAMINATION: XR KNEE, RIGHT XR KNEE, LEFT CLINICAL INFORMATION: History of fall and knee pain COMPARISON: 01/29/2021 TECHNIQUE: Left knee, 2 views Right knee, 2 views FINDINGS: RIGHT KNEE: No acute abnormality compared to 01/29/2021. No fracture or subluxation. At the medial compartment, there is severe loss of the joint space with [id number]-fn-[id number] contact, subarticular sclerosis and osteophytosis. Associated genu varus deformity. Meniscal chondrocalcinosis. The osteoarthritis is moderate at the lateral tibiofemoral compartment and severe at the patellofemoral compartment. Small joint effusion is present. The largest visualized osteochondral body in the posterior knee joint is 1.5 cm. There are vascular calcifications of the extremity. LEFT KNEE: No acute fracture or subluxation. Again noted is the tricompartmental osteoarthritis, severe at the medial tibiofemoral and patellofemoral compartments. Chondrocalcinosis of menisci. Small joint effusion is present. Vascular calcifications are noted. No acute abnormality compared to the prior radiographs. XR/XR knee RT 2V IMPRESSION: * No acute findings at either knee compared to 01/29/2021. No fracture or subluxation. * Chronic tricompartmental osteoarthritis of both knees. The osteoarthritis is severe at the patellofemoral and tibiofemoral compartments of each knee.
--- NOTE | ~2021-03-24 | XR_ITS ---
EXAMINATION: XR KNEE, RIGHT XR KNEE, LEFT CLINICAL INFORMATION: History of fall and knee pain COMPARISON: 01/29/2021 TECHNIQUE: Left knee, 2 views Right knee, 2 views FINDINGS: RIGHT KNEE: No acute abnormality compared to 01/29/2021. No fracture or subluxation. At the medial compartment, there is severe loss of the joint space with [id number]-xfkj contact, subarticular sclerosis and osteophytosis. Associated genu varus deformity. Meniscal chondrocalcinosis. The osteoarthritis is moderate at the lateral tibiofemoral compartment and severe at the patellofemoral compartment. Small joint effusion is present. The largest visualized osteochondral body in the posterior knee joint is 1.5 cm. There are vascular calcifications of the extremity. LEFT KNEE: No acute fracture or subluxation. Again noted is the tricompartmental osteoarthritis, severe at the medial tibiofemoral and patellofemoral compartments. Chondrocalcinosis of menisci. Small joint effusion is present. Vascular calcifications are noted. No acute abnormality compared to the prior radiographs. XR/XR knee LT 2V IMPRESSION: * No acute findings at either knee compared to 01/29/2021. No fracture or subluxation. * Chronic tricompartmental osteoarthritis of both knees. The osteoarthritis is severe at the patellofemoral and tibiofemoral compartments of each knee.
[2021-03-24 12:17] VITALS: BP 127/104; PULSE 87; RESP 16; TEMP 37; O2SAT 96
--- NOTE | 2021-03-24 12:22 | ED.FALL ---
HPI - Fall General Chief Complaint: Extremity Injury, Lower Stated Complaint: KNEE PAIN Time Seen by Provider: 03/24/21 12:20 Source: patient, family, EMS and hourly sign language interpreter Mode of arrival: EMS Limitations: no limitations History of Present Illness HPI Narrative: 75 years old female came in for evaluation after a fall happened yesterday. Yesterday Patient was walking at home tripped on object on the floor fell landed on both knees and her left side, patient initially did not feel pain but needed help from the neighbor to get her of the floor, today patient is complaining of bilateral knee pain, patient is known to have advanced arthritis, patient was given 30 mg of IM Toradol by EMS with partial relief of her pain. Related Data Home Medications Medication Instructions Recorded Confirmed blood sugar diagnostic #10 ea 03/12/20 12/22/20 docusate sodium 100 mg capsule 100 mg PO BID PRN 03/12/20 12/22/20 lorazepam 0.5 mg tablet 0.5 mg PO BID PRN 03/12/20 12/22/20 Previous Rx's Medication Instructions Recorded ketoconazole 2 % topical cream 1 applic TOPICAL BID 30 Days #60 g 02/21/20 blood pressure monitor (Blood #1 ea 03/12/20 Pressure Kit) humidifiers (Cool Mist Humidifier) #1 ea 03/12/20 vbsmbydo-[id number]-ierlzdgsw 3.5 4 drp OTIC (EARS) Q8H 7 Days #10 ml 03/26/20 mg-10,000 unit/mL-1 % ear drops,susp insulin degludec 100 unit/mL (3 65 unit (0.65 mL) SUBCUT BID 30 05/27/20 mL) subcutaneous pen Days #39 ml baclofen 10 mg tablet 10 mg PO BID 10 Days #20 tab 06/04/20 hydrocortisone 1 % topical cream 1 appl TOPICAL BID 30 Days #28 g 06/10/20 cyclobenzaprine 10 mg tablet 10 mg PO TID PRN #10 tab 06/16/20 docusate sodium 100 mg capsule 100 mg PO BID #10 cap 06/16/20 (Colace) mupirocin 2 % topical ointment 1 appl TOPICAL BID 10 Days #22 g 07/19/20 Shower Chair (Chair, shower) #1 ea 09/14/20 flecainide 100 mg tablet 100 mg PO BID #180 tab 09/29/20 losartan 100 mg tablet 100 mg PO DAILY #90 tab 09/29/20 alcohol swabs (Alcohol Prep Pads) 1 pad TOPICAL TID #100 pad 10/01/20 nystatin 100,000 unit/gram topical 1 appl TOPICAL DAILY 30 Days #30 g 10/28/20 cream insulin degludec 100 unit/mL (3 65 unit (0.65 mL) SUBCUT BID 30 11/03/20 mL) subcutaneous pen (Tresiba Days #39 ml FlexTouch U-100 insulin) blood sugar diagnostic (FreeStyle 1 strip MISCELLANEOUS QID #400 11/13/20 Lite Strips) strip alpha lipoic acid 600 mg tablet 600 mg PO DAILY 30 Days #30 tab 12/22/20 comp.stocking,thigh,long,x-lrg #2 ea 12/22/20 dulaglutide 1.5 mg/0.5 mL 1.5 mg (0.5 mL) SUBCUT QWEEK 28 12/22/20 subcutaneous pen injector Days #2 ml (Trulicity) isosorbide mononitrate 30 mg 30 mg PO DAILY 90 Days #90 tab 12/22/20 tablet,extended release 24 hr furosemide 40 mg tablet 40 mg PO DAILY 90 Days #90 tab 12/24/20 docusate sodium 100 mg capsule 100 mg PO BID #60 cap 12/31/20 polyethylene glycol 3350 17 17 g PO .COMPLEX #850 g 12/31/20 gram/dose oral powder (Miralax) albuterol sulfate 90 mcg/actuation 2 puff PO Q4-6H PRN 90 Days #90 g 01/04/21 aerosol inhaler dabigatran etexilate 150 mg 150 mg PO BID 90 Days #180 cap 01/04/21 capsule (Pradaxa) atenolol 50 mg tablet 50 mg PO DAILY #30 tab 01/10/21 amitriptyline 25 mg tablet 25 mg PO BEDTIME #30 tab 01/11/21 insulin aspart U-100 100 unit/mL 24 unit (0.24 mL) SUBCUT TID 30 01/11/21 (3 mL) subcutaneous pen (Novolog Days #15 ml Flexpen U-100 Insulin aspart) lancets 28 gauge (FreeStyle 28 gauge TOPICAL TID #100 ea 01/11/21 Lancets) pen needle, diabetic 32 gauge x 1 ea MISCELLANEOUS TID 30 Days 01/12/21 5/32 (BD Laury 2nd Gen Pen Needle) #100 ea nitrofurantoin macrocrystal 100 mg 100 mg PO BID 7 Days #14 cap 03/03/21 capsule clotrimazole-betamethasone 1 1 appl TOPICAL BID 30 Days #45 g 03/15/21 %-0.05 % topical cream gabapentin 400 mg capsule 400 mg PO BID 30 Days #60 cap 03/15/21 oxycodone 5 mg tablet 5 mg PO BID 30 Days #60 tab 03/15/21 colchicine 0.6 mg tablet (Colcrys) 0.6 mg PO DAILY #90 tab 03/18/21 simvastatin 40 mg tablet 40 mg PO BEDTIME #90 tab 03/18/21 omeprazole 20 mg capsule,delayed 20 mg PO DAILY 30 Days #30 cap 03/22/21 release gabapentin 300 mg capsule 300 mg PO BID #20 cap 03/24/21 (Neurontin) Allergies Allergy/AdvReac Type Severity Reaction Status Date / Time dapagliflozin [From [facility]] Allergy Unknown yeast Verified 03/15/21 14:30 infection metformin Allergy Unknown Diarrhea Verified 03/15/21 14:30 Review of Systems Review of Systems: All other systems are reviewed and are negative Constitutional: Reports as per HPI and Reports no additional constitutional complaints Eyes: Reports as per HPI and Reports no additional eye complaints Reports system reviewed and no additional complaints, except as documented Cardiovascular: Reports as per HPI and Reports no additional cardiovascular complaints Respiratory: Reports as per HPI and Reports no additional respiratory complaints Gastrointestinal: Reports as per HPI and Reports no additional gastrointestinal complaints Genitourinary: Reports no additional female genitourinary complaints Musculoskeletal: Reports no additional musculoskeletal complaints Skin/Breast: Reports system reviewed and no additional complaints, except as docu Psychiatric: Reports no additional psychiatric complaints Endocrine: Reports no additional endocrine complaints Hematologic/Lymphatic: Reports no additional hematologic/lymphatic complaints Allergic/Immunologic: Reports no additional allergic/immunologic complaints Reports system reviewed and no additional complaints, except as documented and Reports Abnormal speech present [facility] Past Medical History Medical History Foot ulcer Pacemaker Surgical History History of cataract surgery History of pacemaker Family History Family History Father No problems noted. Mother No problems noted. Social History Social History Housing: Apartment Alcohol intake: never Patient Tobacco Use Status: Never used Tobacco Advance Directives: Yes Advance Directives on File: Yes Advance Directives Date on File: 06/17/20 Current occupational status: retired and disabled Physical Exam Vital Signs: Vital Signs: Last Vital Signs Temp 98.6 F 03/24/21 12:25 Pulse 86 03/24/21 12:25 Resp 16 03/24/21 12:25 BP 127/104 H 03/24/21 12:25 Pulse Ox 96 03/24/21 12:25 Body Mass Index 46.5 Vital signs have been reviewed as appeared to be correct. Blood pressure normal. Heart rate normal. Respiration rate normal. Temperature normal. Oxygen saturation normal. Appearance: Alert. Oriented X3. No acute distress. Head: Normal external exam. Normocephalic. Atraumatic. No Polanco signs noted. No raccoon eyes noted Eyes: PERRLA. EOMI. Conjunctiva and sclera normal. Eyelids normal. ENT: TM's Normal. Pharynx normal. Uvula midline. Moist mucous membranes. No trismus noted. No drooling noted. No muffled voice noted. Neck: Normal inspection. Neck supple. FROM. No adenopathy. Thyroid Normal. No meningeal signs. No neck mass noted. CVS: Normal heart rate and rhythm. Heart sound normal. No murmurs noted. Pulses normal throughout. Respiratory: No respiratory distress. Painless inspiration. Breath sounds normal. No wheezes/rales/rhonchi noted. Chest nontender. No accessory muscle usage noted or decreased air movement noted. Abdomen: Soft and nontender. Bowel sounds normal in all 4 quadrants. No distention noted. No organomegaly noted. No visible injury noted. Back: No CVA tenderness. Full range of motion noted. Skin: Skin warm and dry. Normal skin color. Normal skin turgor. No rashes/lesions/lacerations noted. Extremities: Right knee, no deformity, no joint effusion, no step-off. Left knee exam showed no deformity, no joint effusion, no step off. Neuro: Oriented X 3. Cranial nerve exam: II-XII are grossly intact No motor deficit. No sensory deficit. Reflexes normal. Course Course Course Narrative: Assessment and plan. 75-year-old female history of degenerative/arthritis of bilateral knees, had bilateral knees pain exacerbated after she fell yesterday. To see an Orthopedic as an outpatient for the severe arthritis of bilateral knees. MDM - Fall Imaging Data Bilateral knee x-ray: Attestation: I personally reviewed and interpreted this imaging study as follows: Radiologist's impression: No acute fracture or dislocation. Discharge Plan Discharge Clinical Impression: Contusion of knee, left Qualifiers: Encounter type: initial encounter Qualified Code(s): S80.02XA - Contusion of left knee, initial encounter Patient Disposition: Home, Self-Care Instructions: Contusion in Adults (ED) Additional Instructions: Follow-up with your doctor in 2-3 days. Prescriptions: New gabapentin [Neurontin] 300 mg capsule 300 mg PO BID Qty: 20 RF: 0 No Action ketoconazole 2 % cream 1 applic topical BID 30 Days Qty: 60 RF: 3 tmifqusp-pukggmjes-VP 3.5-10,000-1 mg/mL-unit/mL-% drops,suspension 4 drp otic (ears) Q8H 7 Days Qty: 10 RF: 0 insulin degludec 100 unit/mL (3 mL) insulin pen 65 unit subcut BID 30 Days Qty: 39 RF: 2 baclofen 10 mg tablet 10 mg PO BID 10 Days Qty: 20 RF: 0 hydrocortisone 1 % cream 1 appl topical BID 30 Days Qty: 28 RF: 2 mupirocin 2 % ointment 1 appl topical BID 10 Days Qty: 22 RF: 0 (DME) Chair, shower Misc See Rx Instructions .ROUTE .MEDSUPPLY Qty: 1 RF: 0 losartan 100 mg tablet 100 mg PO DAILY Qty: 90 RF: 1 flecainide 100 mg tablet 100 mg PO BID Qty: 180 RF: 1 alcohol swabs [Alcohol Prep Pads] Pads, Medicated 1 pad topical TID Qty: 100 RF: 11 Tresiba FlexTouch U-100 100 unit/mL (3 mL) insulin pen 65 unit subcut BID 30 Days Qty: 39 RF: 6 FreeStyle Lite Strips Strip 1 strip miscellaneous QID Qty: 400 RF: 3 furosemide 40 mg tablet 40 mg PO DAILY 90 Days Qty: 90 RF: 2 docusate sodium 100 mg capsule 100 mg PO BID Qty: 60 RF: 6 polyethylene glycol 3350 [Miralax] 17 gram/dose powder 17 g PO .COMPLEX Qty: 850 RF: 6 Pradaxa 150 mg capsule 150 mg PO BID 90 Days Qty: 180 RF: 1 albuterol sulfate 90 mcg/actuation HFA aerosol inhaler 2 puff PO Q4-6H PRN (Reason: bronchospasm) 90 Days Qty: 90 RF: 1 atenolol 50 mg tablet 50 mg PO DAILY Qty: 30 RF: 3 amitriptyline 25 mg tablet 25 mg PO BEDTIME Qty: 30 RF: 4 insulin aspart U-100 [Novolog Flexpen U-100 Insulin] 100 unit/mL (3 mL) insulin pen 24 unit subcut TID 30 Days Qty: 15 RF: 6 lancets [FreeStyle Lancets] 28 gauge misc 28 gauge topical TID Qty: 100 RF: 6 pen needle, diabetic [BD Laury 2nd Gen Pen Needle] 32 gauge x 5/32 needle 1 ea miscellaneous TID 30 Days Qty: 100 RF: 6 nitrofurantoin macrocrystal 100 mg capsule 100 mg PO BID 7 Days Qty: 14 RF: 0 clotrimazole-betamethasone 1-0.05 % cream 1 appl topical BID 30 Days Qty: 45 RF: 3 oxycodone 5 mg tablet 5 mg PO BID 30 Days Qty: 60 RF: 0 colchicine [Colcrys] 0.6 mg tablet 0.6 mg PO DAILY Qty: 90 RF: 2 simvastatin 40 mg tablet 40 mg PO BEDTIME Qty: 90 RF: 2 omeprazole 20 mg capsule,delayed release(DR/EC) 20 mg PO DAILY 30 Days Qty: 30 RF: 1 docusate sodium [Colace] 100 mg capsule 100 mg PO BID Qty: 10 RF: 0 cyclobenzaprine 10 mg tablet 10 mg PO TID PRN (Reason: muscle spasm) Qty: 10 RF: 0 (DME) FreeStyle Lite Strips Strip See Rx Instructions strip Not Applicable QID Qty: 10 RF: 0 lorazepam 0.5 mg tablet 0.5 mg PO BID PRN (Reason: anxiety) RF: 0 docusate sodium 100 mg capsule 100 mg PO BID PRNRF: 0 (DME) blood pressure monitor [Blood Pressure Kit] Kit See Rx Instructions .ROUTE .MEDSUPPLY Qty: 1 RF: 0 (DME) humidifiers [Cool Mist Humidifier] Misc See Rx Instructions .ROUTE .MEDSUPPLY Qty: 1 RF: 0 Trulicity 1.5 mg/0.5 mL pen injector 1.5 mg subcut QWEEK 28 Days Qty: 2 RF: 2 alpha lipoic acid 600 mg tablet 600 mg PO DAILY 30 Days Qty: 30 RF: 0 (DME) comp.stocking,thigh,long,x-lrg Misc See Rx Instructions .Route Qty: 2 RF: 0 isosorbide mononitrate 30 mg tablet extended release 24 hr 30 mg PO DAILY 90 Days Qty: 90 RF: 2 nystatin 100,000 unit/gram cream 1 appl topical DAILY 30 Days Qty: 30 RF: 1 gabapentin 400 mg capsule 400 mg PO BID 30 Days Qty: 60 RF: 2
[2021-03-24 12:25] VITALS: BP 127/104; BP 151/118; PULSE 86; PULSE 88; RESP 16; TEMP 37; O2SAT 96; BMI 46.5
[2021-03-24] MEDS: oxyCODONE HCl Immed Release 5 MG TABLET PO (12:40)
== END 2021-03-24 15:12 | disposition home or self-care (01) ==
PROVIDERS: Emergency Provider Emergency Medicine; PCP Physician Assistant
DX: S80.02XA Contusion of left knee, initial encounter (principal); M17.0 Bilateral primary osteoarthritis of knee; W01.0XXA Fall on same level from slipping, tripping and stumbling without subsequent striking against object, initial encounter; Y93.01 Activity, walking, marching and hiking; Y92.009 Unspecified place in unspecified non-institutional (private) residence as the place of occurrence of the external cause; Y99.9 Unspecified external cause status
CPT/HCPCS: 73560; 99283

== ENCOUNTER 2021-04-03 08:05 | Emergency (ER) | payer MEDICARE, MEDICAID, SELFPAY ==
--- NOTE | ~2021-04-03 | XR_ITS ---
EXAMINATION: XR KNEE, LEFT CLINICAL INFORMATION: Injury, pain COMPARISON: X-ray 03/24/2021 TECHNIQUE: Four views of the left knee. FINDINGS: Severe medial compartment arthritis, marked joint space loss, osteophytes. Moderate lateral and severe patellofemoral arthritis. Tibial tubercle spurring. No visible acute fracture or dislocation. Small effusion. Insertional enthesopathy at the patella. Probable loose body in the posterior joint space. Vascular calcification present. XR/XR knee LT 3V IMPRESSION: *No acute osseous finding seen as compared to the prior radiograph of 03/24/2021. *Tricompartment arthritis. Severe medial compartment arthritis. *Small effusion.
[2021-04-03 08:14] VITALS: BP 168/96; PULSE 80; O2SAT 98
[2021-04-03 08:15] VITALS: BP 150/61; PULSE 74; RESP 19; TEMP 37; O2SAT 97; BMI 36.6
--- NOTE | 2021-04-03 08:53 | ED.FEMALEGU ---
HPI - Female Genitourinary General Chief complaint: Urogenital-Female Stated complaint: L FLANK PAIN,INCONTINENCE X'S 2 WEEKS Time Seen by Provider: 04/03/21 08:50 Source: EMS and seismic interpreter Mode of arrival: EMS Limitations: language barrier History of Present Illness HPI Narrative: 75-year-old female with a history of diabetes, AFib, hypertension, hyperlipidemia, COPD, coronary artery disease, fibromyalgia, GERD coming from home with complaint of left knee pain. Patient tells me that she has had knee pain for weeks to months with no injury or trauma. She tells me that due to the pain she has difficulty with ambulating. Due to this over the last 2 weeks she has had difficulty getting to the bathroom and has had some urinary incontinence. She denies any urgency, frequency, dysuria, abdominal pain, flank pain, fevers, chills, nausea, vomiting. Patient tells me that she does have occasional falls due to the pain and the knee giving out on her. Denies any head strike or loss of consciousness. Triage note remarks on some dizziness reported by patient when I asked her about this she declined any dizziness. Related Data Home Medications Medication Instructions Recorded Confirmed blood sugar diagnostic #10 ea 03/12/20 12/22/20 docusate sodium 100 mg capsule 100 mg PO BID PRN 03/12/20 12/22/20 lorazepam 0.5 mg tablet 0.5 mg PO BID PRN 03/12/20 12/22/20 Previous Rx's Medication Instructions Recorded ketoconazole 2 % topical cream 1 applic TOPICAL BID 30 Days #60 g 02/21/20 blood pressure monitor (Blood #1 ea 03/12/20 Pressure Kit) humidifiers (Cool Mist Humidifier) #1 ea 03/12/20 gpfvtbqi-pdhuajzqw-[id number] 3.5 4 drp OTIC (EARS) Q8H 7 Days #10 ml 03/26/20 mg-10,000 unit/mL-1 % ear drops,susp insulin degludec 100 unit/mL (3 65 unit (0.65 mL) SUBCUT BID 30 05/27/20 mL) subcutaneous pen Days #39 ml baclofen 10 mg tablet 10 mg PO BID 10 Days #20 tab 06/04/20 hydrocortisone 1 % topical cream 1 appl TOPICAL BID 30 Days #28 g 06/10/20 cyclobenzaprine 10 mg tablet 10 mg PO TID PRN #10 tab 06/16/20 docusate sodium 100 mg capsule 100 mg PO BID #10 cap 06/16/20 (Colace) mupirocin 2 % topical ointment 1 appl TOPICAL BID 10 Days #22 g 07/19/20 Shower Chair (Chair, shower) #1 ea 09/14/20 flecainide 100 mg tablet 100 mg PO BID #180 tab 09/29/20 losartan 100 mg tablet 100 mg PO DAILY #90 tab 09/29/20 alcohol swabs (Alcohol Prep Pads) 1 pad TOPICAL TID #100 pad 10/01/20 nystatin 100,000 unit/gram topical 1 appl TOPICAL DAILY 30 Days #30 g 10/28/20 cream insulin degludec 100 unit/mL (3 65 unit (0.65 mL) SUBCUT BID 30 11/03/20 mL) subcutaneous pen (Tresiba Days #39 ml FlexTouch U-100 insulin) blood sugar diagnostic (FreeStyle 1 strip MISCELLANEOUS QID #400 11/13/20 Lite Strips) strip alpha lipoic acid 600 mg tablet 600 mg PO DAILY 30 Days #30 tab 12/22/20 comp.stocking,thigh,long,x-lrg #2 ea 12/22/20 dulaglutide 1.5 mg/0.5 mL 1.5 mg (0.5 mL) SUBCUT QWEEK 28 12/22/20 subcutaneous pen injector Days #2 ml (Trulicity) isosorbide mononitrate 30 mg 30 mg PO DAILY 90 Days #90 tab 12/22/20 tablet,extended release 24 hr furosemide 40 mg tablet 40 mg PO DAILY 90 Days #90 tab 12/24/20 docusate sodium 100 mg capsule 100 mg PO BID #60 cap 12/31/20 polyethylene glycol 3350 17 17 g PO .COMPLEX #850 g 12/31/20 gram/dose oral powder (Miralax) albuterol sulfate 90 mcg/actuation 2 puff PO Q4-6H PRN 90 Days #90 g 01/04/21 aerosol inhaler dabigatran etexilate 150 mg 150 mg PO BID 90 Days #180 cap 01/04/21 capsule (Pradaxa) atenolol 50 mg tablet 50 mg PO DAILY #30 tab 01/10/21 amitriptyline 25 mg tablet 25 mg PO BEDTIME #30 tab 01/11/21 insulin aspart U-100 100 unit/mL 24 unit (0.24 mL) SUBCUT TID 30 01/11/21 (3 mL) subcutaneous pen ( #15 ml Flexpen U-100 Insulin aspart) lancets 28 gauge (FreeStyle 28 gauge TOPICAL TID #100 ea 01/11/21 Lancets) pen needle, diabetic 32 gauge x 1 ea MISCELLANEOUS TID 30 Days 01/12/21 (BD Laury 2nd Gen Pen Needle) #100 ea nitrofurantoin macrocrystal 100 mg 100 mg PO BID 7 Days #14 cap 03/03/21 capsule clotrimazole-betamethasone 1 1 appl TOPICAL BID 30 Days #45 g 03/15/21 %-0.05 % topical cream gabapentin 400 mg capsule 400 mg PO BID 30 Days #60 cap 03/15/21 oxycodone 5 mg tablet 5 mg PO BID 30 Days #60 tab 03/15/21 colchicine 0.6 mg tablet (Colcrys) 0.6 mg PO DAILY #90 tab 03/18/21 simvastatin 40 mg tablet 40 mg PO BEDTIME #90 tab 03/18/21 omeprazole 20 mg capsule,delayed 20 mg PO DAILY 30 Days #30 cap 03/22/21 release gabapentin 300 mg capsule 300 mg PO BID #20 cap 03/24/21 (Neurontin) zinc oxide 13 % topical cream 1 appl TOPICAL BID-QID PRN 15 Days 03/29/21 (Desitin Rapid Relief) #454 g acetaminophen 325 mg tablet 650 mg PO Q6H PRN #30 tab 04/03/21 (Tylenol) cefuroxime axetil 250 mg tablet 250 mg PO BID 7 Days #14 tab 04/03/21 Allergies Allergy/AdvReac Type Severity Reaction Status Date / Time dapagliflozin [From [facility]] Allergy Unknown yeast Verified 03/15/21 14:30 infection metformin Allergy Unknown Diarrhea Verified 03/15/21 14:30 Review of Systems Review of Systems: Yes all other systems are reviewed and are negative Constitutional: Constitutional: Reports no additional constitutional complaints, Denies body ache(s), Denies chills, Denies fever(s), Denies headache(s) and Denies weakness Eyes: Eyes: Reports no additional eye complaints and Denies change in vision ENT: Reports system reviewed and no additional complaints, except as documented, Denies dizziness, Denies headache(s), Denies nasal congestion, Denies nasal discharge and Denies neck pain Cardiovascular: Cardiovascular: Reports no additional cardiovascular complaints, Denies chest pain, Denies leg edema and Denies dyspnea Respiratory: Respiratory: Reports no additional respiratory complaints, Denies cough and Denies dyspnea Gastrointestinal: Gastrointestinal: Reports no additional gastrointestinal complaints, Denies abdominal pain, Denies diarrhea, Denies nausea and Denies vomiting Genitourinary: Genitourinary: Reports no additional female genitourinary complaints and Reports urinary incontinence Musculoskeletal: Musculoskeletal: Reports no additional musculoskeletal complaints, Denies back pain, Reports arthralgias, Reports joint swelling, Reports limited range of motion, Denies neck pain, Denies numbness and Denies tingling Integumentary/Breasts: Skin/Breast: Reports system reviewed and no additional complaints, except as docu and Denies rash Neurologic: Reports system reviewed and no additional complaints, except as documented, Denies Abnormal speech present, Denies dizziness, Denies headache(s), Denies numbness, Denies tingling and Denies weakness PMF Past Medical History Attestation statement: The following information was validated with the patient. Source: old records reviewed and nursing notes reviewed Medical History Arthritis Foot ulcer HTN (hypertension) Insulin dependent type 1 diabetes mellitus Pacemaker Surgical History History of cataract surgery History of pacemaker Family History Family History Father No problems noted. Mother No problems noted. Social History Social History Housing: Apartment Alcohol intake: never Patient Tobacco Use Status: Never used Tobacco Use of substances other than those prescribed or required for medical reasons: No Advance Directives: Yes Advance Directives on File: Yes Advance Directives Date on File: 06/17/20 Current occupational status: retired and disabled Physical Exam Vital Signs: Vital Signs: Last Vital Signs Temp 98.6 F 04/03/21 08:15 Pulse 75 04/03/21 11:33 Resp 14 04/03/21 11:33 BP 117/54 L 04/03/21 11:33 Pulse Ox 98 04/03/21 11:33 Body Mass Index 36.6 Const: General: cooperative, healthy appearing, comfortable and no acute distress Orientation/consciousness: patient oriented x3 Limitations: no limitations HENMT: Head: Yes normal to inspection Ears: hearing grossly normal bilaterally General nose exam: Normal external nose present Face and sinus: Yes normal facial exam Mouth: Normal oral and palatal mucosa present Throat: Yes posterior oropharynx normal Eyes: General: appearance normal, both eyes and all related structures Pupils: Equal, round and reactive pupils present Neck: Neck: Yes normal visual inspection Chest: Chest palpation & inspection: normal inspection of the chest Resp: Effort & Inspection: normal respiratory effort Auscultation: clear to auscultation bilaterally Cardio: Rate: regular rate Rhythm: regular rhythm Peripheral pulses: Peripheral pulses 2+ throughout GI: Inspection: Yes normal to inspection Palpation (GI): Soft to palpation and nontender Auscultation: normal bowel sounds : General: Yes no CVA tenderness Back/Spine/Pelvis: Back: no CVA tenderness Thoracic/Lumbar Spine: thoracic and lumbar spine normal to inspection Skin: General skin exam: no rashes or lesions noted Neuro: General: patient oriented x3, no focal motor deficits and normal sensation to monofilament Cranial nerves: Yes Equal, round and reactive pupils present Cognition (Neuro): normal cognition Speech: No Abnormal speech present Gait exam (Neuro): Normal gait present Motor exam (neuro): 5/5 motor strength present throughout Extrem: Other: To the left knee there is tenderness to the anterior aspect with mild swelling. No deformity or ecchymosis. Limited range of motion due to pain. General: Yes normal to inspection, Yes no pedal edema and Yes no calf tenderness Course Course Course Narrative: 75-year-old female coming from home with complaints of acute on chronic left knee pain with several falls at home due to complaints of her knee giving out on her. Having some increased with difficulty ambulating and trouble getting to the bathroom causing some urinary incontinence. Will check x-rays of left knee, labs and UA. provide analgesia. discussed with family a case management is needed 1040- x-ray shows severe degenerative changes consistent with osteoarthritis of the left knee. UA is consistent with UTI. Labs are unremarkable. Discussed with patient as I feel like she may need placement short-term rehab but she declined this. She tells me she wants to go home and does not want to go to short-term rehab today. She feels like she has sufficient help at home with her family and friends. Offered additional services at home such as visiting nurses and patient also declined this. Plan for discharge home course of antibiotics. May follow with orthopedics for her arthritis. Reviewed worrisome signs and symptoms of when to return to the emergency department. Comfortable discharge home. MDM - Female Genitourinary Medical Records Attestation: I reviewed the patient's medical records. Lab Data Attestation: I reviewed the patient's lab results. Result diagrams: 04/03/21 09:32 04/03/21 09:32 Labs: Lab Results 04/03/21 04/03/21 04/03/21 Range/Units 08:50 09:32 09:32 WBC 9.5 (4.8-10.8) X10*3/uL RBC 4.71 (4.20-5.50) X10*6/uL Hgb 13.4 (12.0-16.0) g/dl Hct 41.3 (37.0-47.0) % MCV 87.7 (80.0-98.0) fL MCH 28.5 (27.0-33.0) pg MCHC 32.4 (31.0-35.0) g/dl RDW 13.2 (11.0-16.0) % Plt Count 226 (160-400) X10*3/uL MPV 10.6 (9.4-12.3) fL Immature Gran % (Auto) 0.8 H (0.0-0.4) % Neut % (Auto) 68.0 (45-73) % Lymph % (Auto) 23.3 (20-40) % Nobles % (Auto) 6.2 (2-11) % Eos % (Auto) 1.5 (0-4) % Baso % (Auto) 0.2 (0-2) % Lymph # (Auto) 2.2 (1.2-4.9) X10*3/uL Nobles # (Auto) 0.6 (0.1-1.2) X10*3/uL Eos # (Auto) 0.1 (0.0-0.4) X10*3/uL Baso # (Auto) 0.0 (0.0-0.2) X10*3/uL Abs Immat Gran (auto) 0.08 H (0.00-0.03) X10*3/uL Absolute Neuts (auto) 6.5 (2.0-8.3) x10*3/uL Absolute Nucleated RBC 0.000 (0.0-0.012) X10*3/uL Nucleated RBC % (auto) 0.0 (0.0-0.2) /100WBC Sodium 138 (135-145) mmol/L Potassium 4.2 (3.3-5.1) mmol/L Chloride 100 (96-108) mmol/L Carbon Dioxide 31 H (22-29) mmol/L Anion Gap 11 L (12-20) BUN 22 H (9-16) mg/dL Creatinine 0.86 (0.5-1.4) mg/dL Estim Creat Clear Calc 66.1 Estimated GFR > 60 Random Glucose 162 H (60-115) mg/dL Calcium 10.0 (8.4-10.2) mg/dL Urine Color YELLOW Urine Appearance HAZY Urine pH 7.5 (5.0-8.0) Ur Specific [place] 1.010 (1.005-1.025) Urine Protein NEG (NEG-TRACE) MG/DL Urine Glucose (UA) NEG (NEG) MG/DL Urine Ketones NEG (NEG) MG/DL Urine Blood NEG (NEG) Urine Nitrite POS H (NEG) Ur Leukocyte Esterase 2+ H (NEG) Urine RBC 0 (0) /HPF Urine WBC 15-29 H (0-4) /HPF Ur Squamous Epith Cells 2+ /LPF Urine Bacteria 4+ /LPF Imaging Data knee x-ray: Attestation: I personally reviewed and interpreted this imaging study as follows: Radiologist's impression: FINDINGS: Severe medial compartment arthritis, marked joint space loss, osteophytes. Moderate lateral and severe patellofemoral arthritis. Tibial tubercle spurring. No visible acute fracture or dislocation. Small effusion. Insertional enthesopathy at the patella. Probable loose body in the posterior joint space. Vascular calcification present. XR/XR knee LT 3V IMPRESSION: *No acute osseous finding seen as compared to the prior radiograph of 03/24/2021. *Tricompartment arthritis. Severe medial compartment arthritis. *Small effusion. ? Discharge Plan Discharge Clinical Impression: Osteoarthritis, Acute UTI Patient Disposition: Home, Self-Care Instructions: Urinary Tract Infection in Women (ED), Osteoarthritis (ED) Additional Instructions: It was recommended that you go to short-term rehab but you declined this Please feel free to return at any time Increase fluids, rest Prescriptions: New cefuroxime axetil 250 mg tablet 250 mg PO BID 7 Days Qty: 14 RF: 0 acetaminophen [Tylenol] 325 mg tablet 650 mg PO Q6H PRN (Reason: pain) Qty: 30 RF: 0 No Action ketoconazole 2 % cream 1 applic topical BID 30 Days Qty: 60 RF: 3 opbyxtqq-zbzdssgrr-AC 3.5-10,000-1 mg/mL-unit/mL-% drops,suspension 4 drp otic (ears) Q8H 7 Days Qty: 10 RF: 0 insulin degludec 100 unit/mL (3 mL) insulin pen 65 unit subcut BID 30 Days Qty: 39 RF: 2 baclofen 10 mg tablet 10 mg PO BID 10 Days Qty: 20 RF: 0 hydrocortisone 1 % cream 1 appl topical BID 30 Days Qty: 28 RF: 2 mupirocin 2 % ointment 1 appl topical BID 10 Days Qty: 22 RF: 0 (DME) Chair, shower Misc See Rx Instructions .ROUTE .MEDSUPPLY Qty: 1 RF: 0 losartan 100 mg tablet 100 mg PO DAILY Qty: 90 RF: 1 flecainide 100 mg tablet 100 mg PO BID Qty: 180 RF: 1 alcohol swabs [Alcohol Prep Pads] Pads, Medicated 1 pad topical TID Qty: 100 RF: 11 Tresiba FlexTouch U-100 100 unit/mL (3 mL) insulin pen 65 unit subcut BID 30 Days Qty: 39 RF: 6 FreeStyle Lite Strips Strip 1 strip miscellaneous QID Qty: 400 RF: 3 furosemide 40 mg tablet 40 mg PO DAILY 90 Days Qty: 90 RF: 2 docusate sodium 100 mg capsule 100 mg PO BID Qty: 60 RF: 6 polyethylene glycol 3350 [Miralax] 17 gram/dose powder 17 g PO .COMPLEX Qty: 850 RF: 6 Pradaxa 150 mg capsule 150 mg PO BID 90 Days Qty: 180 RF: 1 albuterol sulfate 90 mcg/actuation HFA aerosol inhaler 2 puff PO Q4-6H PRN (Reason: bronchospasm) 90 Days Qty: 90 RF: 1 atenolol 50 mg tablet 50 mg PO DAILY Qty: 30 RF: 3 amitriptyline 25 mg tablet 25 mg PO BEDTIME Qty: 30 RF: 4 insulin aspart U-100 [Novolog Flexpen U-100 Insulin] 100 unit/mL (3 mL) insulin pen 24 unit subcut TID 30 Days Qty: 15 RF: 6 lancets [FreeStyle Lancets] 28 gauge misc 28 gauge topical TID Qty: 100 RF: 6 pen needle, diabetic [BD Laury 2nd Gen Pen Needle] 32 gauge x 5/32 needle 1 ea miscellaneous TID 30 Days Qty: 100 RF: 6 nitrofurantoin macrocrystal 100 mg capsule 100 mg PO BID 7 Days Qty: 14 RF: 0 clotrimazole-betamethasone 1-0.05 % cream 1 appl topical BID 30 Days Qty: 45 RF: 3 oxycodone 5 mg tablet 5 mg PO BID 30 Days Qty: 60 RF: 0 colchicine [Colcrys] 0.6 mg tablet 0.6 mg PO DAILY Qty: 90 RF: 2 simvastatin 40 mg tablet 40 mg PO BEDTIME Qty: 90 RF: 2 omeprazole 20 mg capsule,delayed release(DR/EC) 20 mg PO DAILY 30 Days Qty: 30 RF: 1 Desitin Rapid Relief 13 % cream 1 appl topical BID-QID PRN (Reason: skin irritation) 15 Days Qty: 454 RF: 0 docusate sodium [Colace] 100 mg capsule 100 mg PO BID Qty: 10 RF: 0 cyclobenzaprine 10 mg tablet 10 mg PO TID PRN (Reason: muscle spasm) Qty: 10 RF: 0 gabapentin [Neurontin] 300 mg capsule 300 mg PO BID Qty: 20 RF: 0 (DME) FreeStyle Lite Strips Strip See Rx Instructions strip Not Applicable QID Qty: 10 RF: 0 lorazepam 0.5 mg tablet 0.5 mg PO BID PRN (Reason: anxiety) RF: 0 docusate sodium 100 mg capsule 100 mg PO BID PRNRF: 0 (DME) blood pressure monitor [Blood Pressure Kit] Kit See Rx Instructions .ROUTE .MEDSUPPLY Qty: 1 RF: 0 (DME) humidifiers [Cool Mist Humidifier] Misc See Rx Instructions .ROUTE .MEDSUPPLY Qty: 1 RF: 0 Trulicity 1.5 mg/0.5 mL pen injector 1.5 mg subcut QWEEK 28 Days Qty: 2 RF: 2 alpha lipoic acid 600 mg tablet 600 mg PO DAILY 30 Days Qty: 30 RF: 0 (DME) comp.stocking,thigh,long,x-lrg Misc See Rx Instructions .Route Qty: 2 RF: 0 isosorbide mononitrate 30 mg tablet extended release 24 hr 30 mg PO DAILY 90 Days Qty: 90 RF: 2 nystatin 100,000 unit/gram cream 1 appl topical DAILY 30 Days Qty: 30 RF: 1 gabapentin 400 mg capsule 400 mg PO BID 30 Days Qty: 60 RF: 2 Referrals: Kunal Mariee MD [Physician] - 2 days Physician,None [Primary Care Provider] - 2 days
[2021-04-03 08:58] LABS: Appearance Urine HAZY; Color Urine YELLOW; Glucose Urine UA NEG (NEG); Leukocyte Esterase Urine 2+ (NEG); Nitrite Urine POS (NEG); PH 7.5 (5.0-8.0); UACC Culture Trigger YES; Urine Blood NEG (NEG); Urine Ketones NEG (NEG); Urine Protein NEG (NEG-TRACE)
[2021-04-03 09:07] LABS: Bacteria Urine 4+ /LPF; RBC Urine 0 /HPF (0); Squamous Epithelial Cell Urine 2+ /LPF
[2021-04-03 09:39] LABS: MANUAL DIFF FLAG NO
[2021-04-03] MEDS: Acetaminophen 325 MG TABLET 950 MG PO (09:42)
[2021-04-03 09:44] VITALS: BP 125/43; PULSE 75; RESP 18; O2SAT 97
[2021-04-03 09:56] LABS: Basophils Percent Auto 0.2 % (0-2); Eosinophils Absolute Auto 0.1 X10*3/uL (0.0-0.4); Eosinophils Percent Auto 1.5 % (0-4); Hematocrit 41.3 % (37.0-47.0); Hemoglobin 13.4 g/dl (12.0-16.0); Imm Gran Abs Auto 0.08 X10*3/uL (0.00-0.03); Imm Gran Pct Auto 0.8 % (0.0-0.4); Lymphocytes Absolute Auto 2.2 X10*3/uL (1.2-4.9); Lymphocytes Percent Auto 23.3 % (20-40); Mean Corpuscular HGB Conc 32.4 g/dl (31.0-35.0); Mean Corpuscular Hemoglobin 28.5 pg (27.0-33.0); Mean Corpuscular Volume 87.7 fL (80.0-98.0); Mean Platelet Volume 10.6 fL (9.4-12.3); Monocytes Absolute Auto 0.6 X10*3/uL (0.1-1.2); Monocytes Percent Auto 6.2 % (2-11); Neutrophils Absolute Auto 6.5 x10*3/uL (2.0-8.3); Platelet Count 226 X10*3/uL (160-400); Red Blood Count 4.71 X10*6/uL (4.20-5.50); Red Cell Distribution Width 13.2 % (11.0-16.0); White Blood Count 9.5 X10*3/uL (4.8-10.8)
[2021-04-03 10:14] LABS: Anion Gap 11 (12-20); Blood Urea Nitrogen 22 mg/dL (9-16); Carbon Dioxide 31 mmol/L (22-29); Chloride 100 mmol/L (96-108); Creatinine Clr Calc Pharmacy 66.1; Estimated Glomerular Filt Rate > 60; Glucose Random 162 mg/dL (60-115); Potassium 4.2 mmol/L (3.3-5.1); Sodium 138 mmol/L (135-145)
[2021-04-03 11:33] VITALS: BP 117/54; PULSE 75; RESP 14; O2SAT 98
--- NOTE | 2021-04-03 11:38 | PC.NURSE ---
pt medically cleared for discharge. pt alert and oriented, vss. reports chronic 5/10 right knee pain. meds given as documented.
--- NOTE | 2021-04-03 12:23 | PC.NURSE ---
this tag writer called pt's home for someone to come pick her up. No one at home is able to pick her up from the ed because they don't have a car. pt states she will pay for wheelchair van to go home. van booked awaiting van to arrive.
--- NOTE | 2021-04-03 12:24 | PC.NURSE ---
patient moved to amos bed, pt is discharged waiting for chairvan ride to home
[2021-04-03 14:00] VITALS: BP 128/53; PULSE 72; RESP 18; TEMP 36.8; O2SAT 97
--- NOTE | 2021-04-03 15:58 | PC.NURSE ---
patient continues to wait for ride back to her home, pt given something to eat while waiting
[2021-04-03 16:34] VITALS: BP 149/62; PULSE 74; RESP 16; TEMP 36.4; O2SAT 100
--- NOTE | 2021-04-03 16:57 | PC.NURSE ---
PATIENT WAS ASSISTED TO BEDPAN ,HAD LARGE AMOUNT OF URINE
== END 2021-04-03 17:34 | disposition home or self-care (01) ==
PROVIDERS: Nurse Practitioner Family; Emergency Provider Emergency Medicine Emergency Medical Services
DX: N39.0 Urinary tract infection, site not specified (principal); M17.12 Unilateral primary osteoarthritis, left knee; R29.6 Repeated falls; I10 Essential (primary) hypertension; E10.9 Type 1 diabetes mellitus without complications; Z95.0 Presence of cardiac pacemaker
CPT/HCPCS: 36415; 73562; 80048; 81001; 85025; 87086; 87088; 99284

== ENCOUNTER 2021-04-17 20:41 | Emergency (ER) | payer MEDICARE, MEDICAID, SELFPAY ==
--- NOTE | ~2021-04-17 | XR_ITS ---
EXAMINATION: XR hip LT w PEL1V, XR KUB CLINICAL INFORMATION: Left hip pain. Question constipation. COMPARISON: None. TECHNIQUE: Single AP view the pelvis and AP and frog-leg lateral views of the left hip Supine AP view of the abdomen (4 images) XR/XR hip LT w PEL1V FINDINGS/IMPRESSION: PELVIS/LEFT HIP: No acute fracture or dislocation. Femoral heads are spherical. Moderate bilateral acetabular marginal osteophytes. Mild left hip joint space narrowing. Moderate degenerative changes of the sacroiliac joints and symphysis pubis. Soft tissues unremarkable. ABDOMEN: No evidence of obstruction. Moderate stool present throughout the colon. No dilated loops of bowel. No unusual soft tissue calcifications.
--- NOTE | ~2021-04-17 | CT_ITS ---
EXAMINATION: CT ABDOMEN AND PELVIS WITH CONTRAST CLINICAL INFORMATION: Left lower quadrant pain. Leukocytosis. COMPARISON: 06/16/2020 TECHNIQUE: Multidetector volumetric images were obtained from the superior aspect of the liver through the pubic symphysis following administration 85 mL of Omnipaque 350 intravenous contrast. Sagittal and coronal reformatted images were obtained on the technologist's workstation. Oral contrast: No This CT examination was performed using dose optimization techniques as appropriate, variously including the following: *Automated exposure control *Adjustment of mA and/or kV according to patient size (this includes techniques or standardized protocols for targeted exams where dose is matched to indication/reason for exam; i.e. extremities or head) *Use of iterative reconstruction technique DLP: 1085 mGy-cm FINDINGS: LUNG BASES: Cardiomegaly. Lungs are clear. LIVER, GALLBLADDER, AND BILIARY TREE: The liver is normal in size, shape, and attenuation. No focal hepatic lesion or biliary ductal dilatation is present. Cholecystectomy. PANCREAS: Unremarkable. SPLEEN: Unremarkable. ADRENAL GLANDS: Unremarkable. KIDNEYS AND URETERS: The kidneys are normal in size, shape, and attenuation. No hydronephrosis, hydroureter, or calculi seen. No perinephric stranding. BLADDER: Unremarkable. GASTROINTESTINAL TRACT: The small and large bowel are unremarkable. The appendix is unremarkable. ABDOMINAL WALL: Multiple omental fat-containing ventral abdominal hernias present in the supraumbilical region. No associated inflammation. LYMPH NODES: Normal. VASCULAR: Aorta is atherosclerotic but normal caliber. PELVIC VISCERA: There is a 4.1 cm fibroid within the fundus. There is prominence of the left ovary stranding fat stranding. Left ovarian hypodensity measuring 2.7 cm, possibly a cyst, new from the prior exam. Right ovary unremarkable. OSSEOUS STRUCTURES: Unremarkable. CT/CT abdomen pelvis w con IMPRESSION: * Nonspecific prominence and fat stranding associated with the left adnexa and ovary. There also appears to be hypodensity within left ovary measuring 2.7 cm, possibly a cyst. Recommend pelvic ultrasound for further evaluation. * Stable 4.1 cm uterine fibroid. * Ventral abdominal hernias containing noninflamed omental fat Fleischner guidelines were followed.
--- NOTE | ~2021-04-17 | XR_ITS ---
EXAMINATION: XR hip LT w PEL1V, XR KUB CLINICAL INFORMATION: Left hip pain. Question constipation. COMPARISON: None. TECHNIQUE: Single AP view the pelvis and AP and frog-leg lateral views of the left hip Supine AP view of the abdomen (4 images) XR/XR KUB FINDINGS/IMPRESSION: PELVIS/LEFT HIP: No acute fracture or dislocation. Femoral heads are spherical. Moderate bilateral acetabular marginal osteophytes. Mild left hip joint space narrowing. Moderate degenerative changes of the sacroiliac joints and symphysis pubis. Soft tissues unremarkable. ABDOMEN: No evidence of obstruction. Moderate stool present throughout the colon. No dilated loops of bowel. No unusual soft tissue calcifications.
--- NOTE | ~2021-04-17 | XR_ITS ---
EXAMINATION: XR CHEST CLINICAL INFORMATION: Leukocytosis COMPARISON: 07/04/2020 TECHNIQUE: Frontal view of the chest was obtained. FINDINGS: Normal symmetric lung volumes. No parenchymal consolidation. No pleural effusion. No pneumothorax. Stable prominence of the cardiomediastinal silhouette. Aorta is atherosclerotic. Stably positioned dual-lead pacemaker. No acute osseous abnormalities. XR/XR chest 1V IMPRESSION: No acute findings
[2021-04-17 20:52] VITALS: BP 141/61; PULSE 104; PULSE 98; RESP 18; TEMP 37.9; O2SAT 93; O2SAT 97; BMI 48.0
--- NOTE | 2021-04-17 22:24 | ECG_ITS ---
Test Reason : ABDOMINAL PAIN Blood Pressure : / mmHG Vent. Rate : 089 BPM Atrial Rate : 089 BPM P-R Int : 228 ms QRS Dur : 168 ms QT Int : 402 ms P-R-T Axes : 064 081 -67 degrees QTc Int : 489 ms Sinus rhythm with 1st degree A-V block Ventricular-paced rhythm Abnormal ECG When compared with ECG of 16-JUN-2020 10:28, Sinus rhythm has replaced Electronic ventricular pacemaker Referred By: Elizabeth Coughlin Electronically Signed By:THUY CRAIG
--- NOTE | 2021-04-17 22:27 | ED_ITS ---
HPI - General Adult General Chief complaint: General Medical Stated complaint: abd pain weakness Time Seen by Provider: 04/17/21 22:09 Source: patient Mode of arrival: ambulatory Limitations: no limitations History of Present Illness HPI narrative: Patient is brought by EMS from home. Patient states that earlier today she had left lower quadrant pain/hip pain. Patient states that this moment as well. Patient denies pain, no shortness of breath. The patient's son reports that the patient seems weaker than usual. Seems that earlier today patient was getting help to get a bath. Patient seemed to have trouble standing up. Patient states that she did not feel weak, it was the discomfort in the left hip/left abdominal pain. Related Data Home Medications Medication Instructions Recorded Confirmed blood sugar diagnostic #10 ea 03/12/20 12/22/20 docusate sodium 100 mg capsule 100 mg PO BID PRN 03/12/20 12/22/20 lorazepam 0.5 mg tablet 0.5 mg PO BID PRN 03/12/20 12/22/20 Previous Rx's Medication Instructions Recorded ketoconazole 2 % topical cream 1 applic TOPICAL BID 30 Days #60 g 02/21/20 blood pressure monitor (Blood #1 ea 03/12/20 Pressure Kit) humidifiers (Cool Mist Humidifier) #1 ea 03/12/20 qreuvfhj-lndkirciy-kegobmehx 3.5 4 drp OTIC (EARS) Q8H 7 Days #10 ml 03/26/20 mg-10,000 unit/mL-1 % ear drops,susp insulin degludec 100 unit/mL (3 65 unit (0.65 mL) SUBCUT BID 30 05/27/20 mL) subcutaneous pen Days #39 ml baclofen 10 mg tablet 10 mg PO BID 10 Days #20 tab 06/04/20 hydrocortisone 1 % topical cream 1 appl TOPICAL BID 30 Days #28 g 06/10/20 cyclobenzaprine 10 mg tablet 10 mg PO TID PRN #10 tab 06/16/20 docusate sodium 100 mg capsule 100 mg PO BID #10 cap 06/16/20 (Colace) mupirocin 2 % topical ointment 1 appl TOPICAL BID 10 Days #22 g 07/19/20 Shower Chair (Chair, shower) #1 ea 09/14/20 losartan 100 mg tablet 100 mg PO DAILY #90 tab 09/29/20 alcohol swabs (Alcohol Prep Pads) 1 pad TOPICAL TID #100 pad 10/01/20 nystatin 100,000 unit/gram topical 1 appl TOPICAL DAILY 30 Days #30 g 10/28/20 cream insulin degludec 100 unit/mL (3 65 unit (0.65 mL) SUBCUT BID 30 11/03/20 mL) subcutaneous pen (Tresiba Days #39 ml FlexTouch U-100 insulin) blood sugar diagnostic (FreeStyle 1 strip MISCELLANEOUS QID #400 11/13/20 Lite Strips) strip alpha lipoic acid 600 mg tablet 600 mg PO DAILY 30 Days #30 tab 12/22/20 comp.stocking,thigh,long,x-lrg #2 ea 12/22/20 dulaglutide 1.5 mg/0.5 mL 1.5 mg (0.5 mL) SUBCUT QWEEK 28 12/22/20 subcutaneous pen injector Days #2 ml (Trulicity) isosorbide mononitrate 30 mg 30 mg PO DAILY 90 Days #90 tab 12/22/20 tablet,extended release 24 hr furosemide 40 mg tablet 40 mg PO DAILY 90 Days #90 tab 12/24/20 docusate sodium 100 mg capsule 100 mg PO BID #60 cap 12/31/20 polyethylene glycol 3350 17 17 g PO .COMPLEX #850 g 12/31/20 gram/dose oral powder (Miralax) albuterol sulfate 90 mcg/actuation 2 puff PO Q4-6H PRN 90 Days #90 g 01/04/21 aerosol inhaler dabigatran etexilate 150 mg 150 mg PO BID 90 Days #180 cap 01/04/21 capsule (Pradaxa) atenolol 50 mg tablet 50 mg PO DAILY #30 tab 01/10/21 amitriptyline 25 mg tablet 25 mg PO BEDTIME #30 tab 01/11/21 insulin aspart U-100 100 unit/mL 24 unit (0.24 mL) SUBCUT TID 30 01/11/21 (3 mL) subcutaneous pen (Novolog Days #15 ml Flexpen U-100 Insulin aspart) lancets 28 gauge (FreeStyle 28 gauge TOPICAL TID #100 ea 01/11/21 Lancets) pen needle, diabetic 32 gauge x 1 ea MISCELLANEOUS TID 30 Days 01/12/21 5/32 (BD Laury 2nd Gen Pen Needle) #100 ea nitrofurantoin macrocrystal 100 mg 100 mg PO BID 7 Days #14 cap 03/03/21 capsule clotrimazole-betamethasone 1 1 appl TOPICAL BID 30 Days #45 g 03/15/21 %-0.05 % topical cream gabapentin 400 mg capsule 400 mg PO BID 30 Days #60 cap 03/15/21 colchicine 0.6 mg tablet (Colcrys) 0.6 mg PO DAILY #90 tab 03/18/21 simvastatin 40 mg tablet 40 mg PO BEDTIME #90 tab 03/18/21 omeprazole 20 mg capsule,delayed 20 mg PO DAILY 30 Days #30 cap 03/22/21 release gabapentin 300 mg capsule 300 mg PO BID #20 cap 03/24/21 (Neurontin) zinc oxide 13 % topical cream 1 appl TOPICAL BID-QID PRN 15 Days 03/29/21 (Desitin Rapid Relief) #454 g acetaminophen 325 mg tablet 650 mg PO Q6H PRN #30 tab 04/03/21 (Tylenol) cefuroxime axetil 250 mg tablet 250 mg PO BID 7 Days #14 tab 04/03/21 flecainide 100 mg tablet 100 mg PO BID #180 tab 04/04/21 oxycodone 5 mg tablet 5 mg PO BID 30 Days #60 tab 04/12/21 Allergies Allergy/AdvReac Type Severity Reaction Status Date / Time dapagliflozin [From [facility]] Allergy Unknown yeast Verified 03/15/21 14:30 infection metformin Allergy Unknown Diarrhea Verified 03/15/21 14:30 Review of Systems Review of Systems: Constitutional : No Weight loss, No Fever, No Chills, No Night Sweats, No Fatigue, No Malaise ENT/Mouth : No Hearing loss, No Ear Pain, No Nasal Congestion, No Sinus Pain, No Hoarseness, No sore throat, No Rhinorrhea, No Swallowing Difficulty Eyes: No Eye Pain, No Swelling, No Redness, No Foreign Body, No Discharge, No Vision Changes Cardiovascular : No Chest Pain, No SOB, No Dyspnea on Exertion, No Orthopnea, No Edema, No Palpitations Respiratory : No Cough, No Sputum, No Wheezing, No Smoke Exposure, No Dyspnea Gastrointestinal : No Nausea, No Vomiting, No Diarrhea, patient complaining of Constipation, No abdominal Pain, No Hematochezia, No Melena Genitourinary : no irregular bleeding, No Dysuria, No Urinary Frequency, No Hematuria, No Urinary Incontinence, No Urgency, No Flank Pain, No Urinary Flow Changes, No Hesitancy Musculoskeletal : Seems to have left hip pain No Myalgias, No Joint Swelling Skin : No Skin Lesions, No rash Neuro : No Weakness, No Numbness, No Paresthesias, No Loss of Consciousness, No Dizziness, No Headache Psych : No Anxiety/Panic, No Depression, No SI/HI/AH/VH, No Social Issues, Heme/Lymph: No Bruising, No Bleeding,No Lymphadenopathy Endocrine : No Polyuria, No Polydipsia, No Temperature Intolerance [facility] Past Medical History Medical History Arthritis Foot ulcer HTN (hypertension) Insulin dependent type 1 diabetes mellitus Pacemaker Surgical History History of cataract surgery History of pacemaker Family History Family History Father No problems noted. Mother No problems noted. Social History Social History Housing: Apartment Alcohol intake: never Patient Tobacco Use Status: Never used Tobacco Advance Directives: Yes Advance Directives on File: Yes Advance Directives Date on File: 06/17/20 Current occupational status: retired and disabled Physical Exam Vital Signs: Vital Signs: Last Vital Signs Temp 99.3 F 04/18/21 04:15 Pulse 88 04/18/21 04:15 Resp 26 H 04/18/21 04:15 BP 128/50 L 04/18/21 04:15 Pulse Ox 96 04/18/21 04:15 BMI result Body Mass Index 48.0 Const: Other: Appearance: Alert. Oriented X3. No acute distress. Well- appearing Eyes: Pupils equal, round and reactive to light. ENT: Pharynx normal. Neck: Normal inspection. Neck supple. No lymph nodes noted. No crepitus CVS: Normal heart rate and rhythm. Pulses normal. Normal S1 and S2 Respiratory: No respiratory distress. Breath sounds normal. No Wheezing. No rales Abdomen: Soft and nontender. No rigidity. No distention. Skin: Skin warm and dry. Normal skin color. Normal skin turgor. Extremities: No lower extremity edema. No Lacerations. No Rash Neuro: Oriented X 3. No motor deficit. No sensory deficit. Moving all extermities. No slurred speech. Course Course Course Narrative: Patient has an elevated white blood cell count. Unclear source. Patient is not septic, no fever, normal broke pressure. Chest x-ray and urine within normal limits, CT scan of the abdomen and pelvis shows no acute pathology. I discussed with the patient that she is weak, sherwin strongly recommend physical therapy and Case Management. Earlier before the son left, they would also like the patient to go to a short-term rehab. However, the patient absolutely refuses to go. We spoke to the patient several times, patient is adamant that she wants to go home. Medical Decision Making Lab Data Result diagrams: 04/17/21 23:23 04/17/21 23:23 Labs: Lab Results 04/17/21 04/17/21 04/17/21 Range/Units 23:23 23:23 23:23 WBC 17.9 H (4.8-10.8) X10*3/uL RBC 4.59 (4.20-5.50) X10*6/uL Hgb 13.2 (12.0-16.0) g/dl Hct 40.2 (37.0-47.0) % MCV 87.6 (80.0-98.0) fL MCH 28.8 (27.0-33.0) pg MCHC 32.8 (31.0-35.0) g/dl RDW 13.2 (11.0-16.0) % Plt Count 215 (160-400) X10*3/uL MPV 10.2 (9.4-12.3) fL Immature Gran % (Auto) 0.6 H (0.0-0.4) % Neut % (Auto) 86.7 H (45-73) % Lymph % (Auto) 7.6 L (20-40) % [place] % (Auto) 5.0 (2-11) % Eos % (Auto) 0.0 (0-4) % Baso % (Auto) 0.1 (0-2) % Lymph # (Auto) 1.4 (1.2-4.9) X10*3/uL [place] # (Auto) 0.9 (0.1-1.2) X10*3/uL Eos # (Auto) 0.0 (0.0-0.4) X10*3/uL Baso # (Auto) 0.0 (0.0-0.2) X10*3/uL Abs Immat Gran (auto) 0.11 H (0.00-0.03) X10*3/uL Absolute Neuts (auto) 15.6 H (2.0-8.3) x10*3/uL Absolute Nucleated RBC 0.000 (0.0-0.012) X10*3/uL Nucleated RBC % (auto) 0.0 (0.0-0.2) /100WBC Sodium 136 (135-145) mmol/L Potassium 4.1 (3.3-5.1) mmol/L Chloride 100 (96-108) mmol/L Carbon Dioxide 25 (22-29) mmol/L Anion Gap 15 (12-20) BUN 15 (9-16) mg/dL Creatinine 0.80 (0.5-1.4) mg/dL Estim Creat Clear Calc 80.2 Estimated GFR > 60 POC Glucose (60-115) mg/dL Random Glucose 226 H (60-115) mg/dL Calcium 10.0 (8.4-10.2) mg/dL Total Bilirubin 0.8 (0.0-1.0) mg/dL Direct Bilirubin 0.3 (0.0-0.5) mg/dL AST 12 (5-31) U/L ALT 10 (0-31) U/L Alkaline Phosphatase 123 H D (39-117) U/L Troponin I High Sens 30.5 H (<3.5-17.0) ng/L Total Protein 6.3 L (6.5-8.0) g/dL Albumin 3.7 (3.5-5.0) g/dL Lipase 4 L (8-78) U/L Urine Color Urine Appearance Urine pH (5.0-8.0) Ur Specific [place] (1.005-1.025) Urine Protein (NEG-TRACE) MG/DL Urine Glucose (UA) (NEG) MG/DL Urine Ketones (NEG) MG/DL Urine Blood (NEG) Urine Nitrite (NEG) Ur Leukocyte Esterase (NEG) 04/18/21 04/18/21 04/18/21 Range/Units 01:01 02:32 04:15 WBC (4.8-10.8) X10*3/uL RBC (4.20-5.50) X10*6/uL Hgb (12.0-16.0) g/dl Hct (37.0-47.0) % MCV (80.0-98.0) fL MCH (27.0-33.0) pg MCHC (31.0-35.0) g/dl RDW (11.0-16.0) % Plt Count (160-400) X10*3/uL MPV (9.4-12.3) fL Immature Gran % (Auto) (0.0-0.4) % Neut % (Auto) (45-73) % Lymph % (Auto) (20-40) % [place] % (Auto) (2-11) % Eos % (Auto) (0-4) % Baso % (Auto) (0-2) % Lymph # (Auto) (1.2-4.9) X10*3/uL [place] # (Auto) (0.1-1.2) X10*3/uL Eos # (Auto) (0.0-0.4) X10*3/uL Baso # (Auto) (0.0-0.2) X10*3/uL Abs Immat Gran (auto) (0.00-0.03) X10*3/uL Absolute Neuts (auto) (2.0-8.3) x10*3/uL Absolute Nucleated RBC (0.0-0.012) X10*3/uL Nucleated RBC % (auto) (0.0-0.2) /100WBC Sodium (135-145) mmol/L Potassium (3.3-5.1) mmol/L Chloride (96-108) mmol/L Carbon Dioxide (22-29) mmol/L Anion Gap (12-20) BUN (9-16) mg/dL Creatinine (0.5-1.4) mg/dL Estim Creat Clear Calc Estimated GFR POC Glucose 172 H (60-115) mg/dL Random Glucose (60-115) mg/dL Calcium (8.4-10.2) mg/dL Total Bilirubin (0.0-1.0) mg/dL Direct Bilirubin (0.0-0.5) mg/dL AST (5-31) U/L ALT (0-31) U/L Alkaline Phosphatase (39-117) U/L Troponin I High Sens 31.1 H (<3.5-17.0) ng/L Total Protein (6.5-8.0) g/dL Albumin (3.5-5.0) g/dL Lipase (8-78) U/L Urine Color YELLOW Urine Appearance CLEAR Urine pH 6.0 (5.0-8.0) Ur Specific [place] 1.010 (1.005-1.025) Urine Protein NEG (NEG-TRACE) MG/DL Urine Glucose (UA) NEG (NEG) MG/DL Urine Ketones NEG (NEG) MG/DL Urine Blood NEG (NEG) Urine Nitrite NEG (NEG) Ur Leukocyte Esterase NEG (NEG) Imaging Data US - abdomen: Radiologist's impression: FINDINGS: LUNG BASES: Cardiomegaly. Lungs are clear.? LIVER, GALLBLADDER, AND BILIARY TREE: The liver is normal in size, shape, and attenuation. No focal hepatic lesion or biliary ductal dilatation is present. Cholecystectomy.? PANCREAS: Unremarkable.? SPLEEN: Unremarkable.? ADRENAL GLANDS: Unremarkable.? KIDNEYS AND URETERS: The kidneys are normal in size, shape, and attenuation. No hydronephrosis, hydroureter, or calculi seen. No perinephric stranding. ? BLADDER: Unremarkable.? GASTROINTESTINAL TRACT: The small and large bowel are unremarkable. The appendix is unremarkable.? ABDOMINAL WALL: Multiple omental fat-containing ventral abdominal hernias present in the supraumbilical region. No associated inflammation.? LYMPH NODES: Normal. VASCULAR: Aorta is atherosclerotic but normal caliber. PELVIC VISCERA: There is a 4.1 cm fibroid within the fundus. There is prominence of the left ovary stranding fat stranding. Left ovarian hypodensity measuring 2.7 cm, possibly a cyst, new from the prior exam. Right ovary unremarkable.? OSSEOUS STRUCTURES: Unremarkable.? CT/CT abdomen pelvis w con IMPRESSION: *? Nonspecific prominence and fat stranding associated with the left adnexa and ovary. There also appears to be hypodensity within left ovary measuring 2.7 cm, possibly a cyst. Recommend pelvic ultrasound for further evaluation. *? Stable 4.1 cm uterine fibroid. *? Ventral abdominal hernias containing noninflamed omental fat? ? Fleischner guidelines were followed. Discharge Plan Discharge Clinical Impression: Abdominal pain Patient Disposition: Home, Self-Care Instructions: Abdominal Pain (ED) Additional Instructions: Please follow-up with your primary care physician tomorrow. If you have any worsening or new symptoms, please return to the emergency room or call 911 Prescriptions: No Action ketoconazole 2 % cream 1 applic topical BID 30 Days Qty: 60 RF: 3 xepxnfvo-rdomodigo-BO 3.5-10,000-1 mg/mL-unit/mL-% drops,suspension 4 drp otic (ears) Q8H 7 Days Qty: 10 RF: 0 insulin degludec 100 unit/mL (3 mL) insulin pen 65 unit subcut BID 30 Days Qty: 39 RF: 2 baclofen 10 mg tablet 10 mg PO BID 10 Days Qty: 20 RF: 0 hydrocortisone 1 % cream 1 appl topical BID 30 Days Qty: 28 RF: 2 mupirocin 2 % ointment 1 appl topical BID 10 Days Qty: 22 RF: 0 (DME) Chair, shower Misc See Rx Instructions .ROUTE .MEDSUPPLY Qty: 1 RF: 0 losartan 100 mg tablet 100 mg PO DAILY Qty: 90 RF: 1 alcohol swabs [Alcohol Prep Pads] Pads, Medicated 1 pad topical TID Qty: 100 RF: 11 Tresiba FlexTouch U-100 100 unit/mL (3 mL) insulin pen 65 unit subcut BID 30 Days Qty: 39 RF: 6 FreeStyle Lite Strips Strip 1 strip miscellaneous QID Qty: 400 RF: 3 furosemide 40 mg tablet 40 mg PO DAILY 90 Days Qty: 90 RF: 2 docusate sodium 100 mg capsule 100 mg PO BID Qty: 60 RF: 6 polyethylene glycol 3350 [Miralax] 17 gram/dose powder 17 g PO .COMPLEX Qty: 850 RF: 6 Pradaxa 150 mg capsule 150 mg PO BID 90 Days Qty: 180 RF: 1 albuterol sulfate 90 mcg/actuation HFA aerosol inhaler 2 puff PO Q4-6H PRN (Reason: bronchospasm) 90 Days Qty: 90 RF: 1 atenolol 50 mg tablet 50 mg PO DAILY Qty: 30 RF: 3 amitriptyline 25 mg tablet 25 mg PO BEDTIME Qty: 30 RF: 4 insulin aspart U-100 [Novolog Flexpen U-100 Insulin] 100 unit/mL (3 mL) insulin pen 24 unit subcut TID 30 Days Qty: 15 RF: 6 lancets [FreeStyle Lancets] 28 gauge misc 28 gauge topical TID Qty: 100 RF: 6 pen needle, diabetic [BD Laury 2nd Gen Pen Needle] 32 gauge x 5/32 needle 1 ea miscellaneous TID 30 Days Qty: 100 RF: 6 nitrofurantoin macrocrystal 100 mg capsule 100 mg PO BID 7 Days Qty: 14 RF: 0 clotrimazole-betamethasone 1-0.05 % cream 1 appl topical BID 30 Days Qty: 45 RF: 3 colchicine [Colcrys] 0.6 mg tablet 0.6 mg PO DAILY Qty: 90 RF: 2 simvastatin 40 mg tablet 40 mg PO BEDTIME Qty: 90 RF: 2 omeprazole 20 mg capsule,delayed release(DR/EC) 20 mg PO DAILY 30 Days Qty: 30 RF: 1 Desitin Rapid Relief 13 % cream 1 appl topical BID-QID PRN (Reason: skin irritation) 15 Days Qty: 454 RF: 0 flecainide 100 mg tablet 100 mg PO BID Qty: 180 RF: 0 oxycodone 5 mg tablet 5 mg PO BID 30 Days Qty: 60 RF: 0 docusate sodium [Colace] 100 mg capsule 100 mg PO BID Qty: 10 RF: 0 cyclobenzaprine 10 mg tablet 10 mg PO TID PRN (Reason: muscle spasm) Qty: 10 RF: 0 gabapentin [Neurontin] 300 mg capsule 300 mg PO BID Qty: 20 RF: 0 cefuroxime axetil 250 mg tablet 250 mg PO BID 7 Days Qty: 14 RF: 0 acetaminophen [Tylenol] 325 mg tablet 650 mg PO Q6H PRN (Reason: pain) Qty: 30 RF: 0 (DME) FreeStyle Lite Strips Strip See Rx Instructions strip Not Applicable QID Qty: 10 RF: 0 lorazepam 0.5 mg tablet 0.5 mg PO BID PRN (Reason: anxiety) RF: 0 docusate sodium 100 mg capsule 100 mg PO BID PRNRF: 0 (DME) blood pressure monitor [Blood Pressure Kit] Kit See Rx Instructions .ROUTE .MEDSUPPLY Qty: 1 RF: 0 (DME) humidifiers [Cool Mist Humidifier] Misc See Rx Instructions .ROUTE .MEDSUPPLY Qty: 1 RF: 0 Trulicity 1.5 mg/0.5 mL pen injector 1.5 mg subcut QWEEK 28 Days Qty: 2 RF: 2 alpha lipoic acid 600 mg tablet 600 mg PO DAILY 30 Days Qty: 30 RF: 0 (DME) comp.stocking,thigh,long,x-lrg Misc See Rx Instructions .Route Qty: 2 RF: 0 isosorbide mononitrate 30 mg tablet extended release 24 hr 30 mg PO DAILY 90 Days Qty: 90 RF: 2 nystatin 100,000 unit/gram cream 1 appl topical DAILY 30 Days Qty: 30 RF: 1 gabapentin 400 mg capsule 400 mg PO BID 30 Days Qty: 60 RF: 2
--- NOTE | 2021-04-17 22:44 | PC.NURSE ---
unable to get labs from patient, will notify tech that patient needs labs drawn as they already have an iv
--- NOTE | 2021-04-17 22:44 | PC.NURSE ---
pt to radiology
[2021-04-17 23:29] LABS: Basophils Percent Auto 0.1 % (0-2); Hematocrit 40.2 % (37.0-47.0); Hemoglobin 13.2 g/dl (12.0-16.0); Imm Gran Abs Auto 0.11 X10*3/uL (0.00-0.03); Imm Gran Pct Auto 0.6 % (0.0-0.4); Lymphocytes Absolute Auto 1.4 X10*3/uL (1.2-4.9); Lymphocytes Percent Auto 7.6 % (20-40); Mean Corpuscular HGB Conc 32.8 g/dl (31.0-35.0); Mean Corpuscular Hemoglobin 28.8 pg (27.0-33.0); Mean Corpuscular Volume 87.6 fL (80.0-98.0); Mean Platelet Volume 10.2 fL (9.4-12.3); Monocytes Absolute Auto 0.9 X10*3/uL (0.1-1.2); Neutrophils Absolute Auto 15.6 x10*3/uL (2.0-8.3); Neutrophils Percent Auto 86.7 % (45-73); Platelet Count 215 X10*3/uL (160-400); Red Blood Count 4.59 X10*6/uL (4.20-5.50); Red Cell Distribution Width 13.2 % (11.0-16.0); White Blood Count 17.9 X10*3/uL (4.8-10.8)
[2021-04-17 23:30] LABS: MANUAL DIFF FLAG NO
[2021-04-17 23:48] LABS: Troponin-I High Sensitivity 30.5 ng/L (<3.5-17.0)
[2021-04-17 23:57] LABS: Alanine Aminotransferase 10 U/L (0-31); Albumin Level 3.7 g/dL (3.5-5.0); Alkaline Phosphatase 123 U/L (39-117); Anion Gap 15 (12-20); Aspartate Amino Transferase 12 U/L (5-31); Bilirubin Direct 0.3 mg/dL (0.0-0.5); Bilirubin Total 0.8 mg/dL (0.0-1.0); Blood Urea Nitrogen 15 mg/dL (9-16); Carbon Dioxide 25 mmol/L (22-29); Chloride 100 mmol/L (96-108); Creatinine Clr Calc Pharmacy 80.2; Estimated Glomerular Filt Rate > 60; Glucose Random 226 mg/dL (60-115); Lipase 4 U/L (8-78); Potassium 4.1 mmol/L (3.3-5.1); Sodium 136 mmol/L (135-145); Total Protein 6.3 g/dL (6.5-8.0)
[2021-04-18 00:21] VITALS: BP 150/46; PULSE 90; RESP 27; TEMP 37; O2SAT 95
[2021-04-18 01:10] LABS: Appearance Urine CLEAR; Color Urine YELLOW; Glucose Urine UA NEG (NEG); Leukocyte Esterase Urine NEG (NEG); Nitrite Urine NEG (NEG); Urine Blood NEG (NEG); Urine Ketones NEG (NEG); Urine Protein NEG (NEG-TRACE)
[2021-04-18] MEDS: iohexoL 350 MG/ML 100 ML INFUS..BTL 85 ML IV (02:14)
[2021-04-18 02:37] LABS: Glucose, Whole Blood 172 mg/dL (60-115)
[2021-04-18 04:15] VITALS: BP 128/50; PULSE 88; RESP 26; TEMP 37.4; O2SAT 96
[2021-04-18 04:40] LABS: Troponin-I High Sensitivity 31.1 ng/L (<3.5-17.0)
[2021-04-18] MEDS: Calcium Carbonate 750 MG TAB.CHEW 1500 MG PO (05:15)
--- NOTE | 2021-04-18 05:42 | PC.NURSE ---
tried to ambulate patient was unable to ambulate, called translator/interpreter to ask pt if they would like to do physical therapy, awaiting translator/interpreter
== END 2021-04-18 08:12 | disposition home or self-care (01) ==
PROVIDERS: Emergency Provider Emergency Medicine
DX: R10.32 Left lower quadrant pain (principal); R53.1 Weakness; I10 Essential (primary) hypertension; E11.9 Type 2 diabetes mellitus without complications; I48.91 Unspecified atrial fibrillation; E78.5 Hyperlipidemia, unspecified; Z95.0 Presence of cardiac pacemaker; Z98.51 Tubal ligation status; Z90.49 Acquired absence of other specified parts of digestive tract; Z87.440 Personal history of urinary (tract) infections; Z79.4 Long term (current) use of insulin; Z79.899 Other long term (current) drug therapy; Z79.01 Long term (current) use of anticoagulants; Z79.02 Long term (current) use of antithrombotics/antiplatelets
CPT/HCPCS: 36415; 71045; 73502; 74018; 74177; 80048; 80076; 81003; 82947; 83690; 84484; 85025; 93005; 99284; Q9967

== ENCOUNTER 2021-04-23 23:44 | Emergency (ER) | payer MEDICARE, MEDICAID, SELFPAY ==
--- NOTE | ~2021-04-23 | XR_ITS ---
EXAMINATION: XR CHEST CLINICAL INFORMATION: Cough COMPARISON: 04/18/2021 TECHNIQUE: Frontal view of the chest was obtained. FINDINGS: Left-sided pacemaker lead tips overlie the right atrium and right ventricle. Lung volumes are symmetric. No focal consolidation is seen. No evidence of pneumothorax, pleural effusion, or pulmonary edema. Prominent cardiac silhouette is similar to prior. No acute osseous findings are seen. XR/XR chest 1V IMPRESSION: No acute findings identified. Prominent cardiac silhouette.
[2021-04-24] VITALS (7 sets, daily range): BP systolic 121–168; BP diastolic 52–80; PULSE 90–112; RESP 16–18; TEMP 37.3–37.8; O2SAT 94–97; BMI 40.3
--- NOTE | 2021-04-24 00:31 | ED.GENADULT ---
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 As per daughter she tested her mother for COVID-19 with a home test and found that she was positive. She reports that her mother has had increasing difficulty with getting around. EMS reports that they found the patient laying in her own feces. Patient refused transport to the hospital, but was eventually persuaded. She denies any dizziness, headache, new cough, shortness of breath, chest pain/palpitations, decrease in appetite, nausea/vomiting/diarrhea and denies any urinary pain/burning/frequency. Related Data Home Medications Medication Instructions Recorded Confirmed blood sugar diagnostic #10 ea 03/12/20 12/22/20 docusate sodium 100 mg capsule 100 mg PO BID PRN 03/12/20 12/22/20 lorazepam 0.5 mg tablet 0.5 mg PO BID PRN 03/12/20 12/22/20 Previous Rx's Medication Instructions Recorded ketoconazole 2 % topical cream 1 applic TOPICAL BID 30 Days #60 g 02/21/20 blood pressure monitor (Blood #1 ea 03/12/20 Pressure Kit) humidifiers (Cool Mist Humidifier) #1 ea 03/12/20 oirbxxqw-hyigwkozu-epinyxesh 3.5 4 drp OTIC (EARS) Q8H 7 Days #10 ml 03/26/20 mg-10,000 unit/mL-1 % ear drops,susp insulin degludec 100 unit/mL (3 65 unit (0.65 mL) SUBCUT BID 30 05/27/20 mL) subcutaneous pen Days #39 ml baclofen 10 mg tablet 10 mg PO BID 10 Days #20 tab 06/04/20 hydrocortisone 1 % topical cream 1 appl TOPICAL BID 30 Days #28 g 06/10/20 cyclobenzaprine 10 mg tablet 10 mg PO TID PRN #10 tab 06/16/20 docusate sodium 100 mg capsule 100 mg PO BID #10 cap 06/16/20 (Colace) mupirocin 2 % topical ointment 1 appl TOPICAL BID 10 Days #22 g 07/19/20 Shower Chair (Chair, shower) #1 ea 09/14/20 losartan 100 mg tablet 100 mg PO DAILY #90 tab 09/29/20 alcohol swabs (Alcohol Prep Pads) 1 pad TOPICAL TID #100 pad 10/01/20 nystatin 100,000 unit/gram topical 1 appl TOPICAL DAILY 30 Days #30 g 10/28/20 cream insulin degludec 100 unit/mL (3 65 unit (0.65 mL) SUBCUT BID 30 11/03/20 mL) subcutaneous pen (Tresiba Days #39 ml FlexTouch U-100 insulin) blood sugar diagnostic (FreeStyle 1 strip MISCELLANEOUS QID #400 11/13/20 Lite Strips) strip alpha lipoic acid 600 mg tablet 600 mg PO DAILY 30 Days #30 tab 12/22/20 comp.stocking,thigh,long,x-lrg #2 ea 12/22/20 dulaglutide 1.5 mg/0.5 mL 1.5 mg (0.5 mL) SUBCUT QWEEK 28 12/22/20 subcutaneous pen injector Days #2 ml (Trulicity) isosorbide mononitrate 30 mg 30 mg PO DAILY 90 Days #90 tab 12/22/20 tablet,extended release 24 hr furosemide 40 mg tablet 40 mg PO DAILY 90 Days #90 tab 12/24/20 docusate sodium 100 mg capsule 100 mg PO BID #60 cap 12/31/20 polyethylene glycol 3350 17 17 g PO .COMPLEX #850 g 12/31/20 gram/dose oral powder (Miralax) albuterol sulfate 90 mcg/actuation 2 puff PO Q4-6H PRN 90 Days #90 g 01/04/21 aerosol inhaler dabigatran etexilate 150 mg 150 mg PO BID 90 Days #180 cap 01/04/21 capsule (Pradaxa) amitriptyline 25 mg tablet 25 mg PO BEDTIME #30 tab 01/11/21 insulin aspart U-100 100 unit/mL 24 unit (0.24 mL) SUBCUT TID 30 01/11/21 (3 mL) subcutaneous pen (Novolog Days #15 ml Flexpen U-100 Insulin aspart) lancets 28 gauge (FreeStyle 28 gauge TOPICAL TID #100 ea 01/11/21 Lancets) pen needle, diabetic 32 gauge x 1 ea MISCELLANEOUS TID 30 Days 01/12/21 5/32 (BD Laury 2nd Gen Pen Needle) #100 ea nitrofurantoin macrocrystal 100 mg 100 mg PO BID 7 Days #14 cap 03/03/21 capsule clotrimazole-betamethasone 1 1 appl TOPICAL BID 30 Days #45 g 03/15/21 %-0.05 % topical cream gabapentin 400 mg capsule 400 mg PO BID 30 Days #60 cap 03/15/21 colchicine 0.6 mg tablet (Colcrys) 0.6 mg PO DAILY #90 tab 03/18/21 simvastatin 40 mg tablet 40 mg PO BEDTIME #90 tab 03/18/21 omeprazole 20 mg capsule,delayed 20 mg PO DAILY 30 Days #30 cap 03/22/21 release gabapentin 300 mg capsule 300 mg PO BID #20 cap 03/24/21 (Neurontin) zinc oxide 13 % topical cream 1 appl TOPICAL BID-QID PRN 15 Days 03/29/21 (Desitin Rapid Relief) #454 g acetaminophen 325 mg tablet 650 mg PO Q6H PRN #30 tab 04/03/21 (Tylenol) cefuroxime axetil 250 mg tablet 250 mg PO BID 7 Days #14 tab 04/03/21 flecainide 100 mg tablet 100 mg PO BID #180 tab 04/04/21 oxycodone 5 mg tablet 5 mg PO BID 30 Days #60 tab 04/12/21 atenolol 50 mg tablet 50 mg PO DAILY #30 tab 04/20/21 Allergies Allergy/AdvReac Type Severity Reaction Status Date / Time dapagliflozin [From [facility]] Allergy Unknown yeast Verified 03/15/21 14:30 infection metformin Allergy Unknown Diarrhea Verified 03/15/21 14:30 Review of Systems Review of Systems: Pertinent positives and negatives as stated in HPI 10 point review of systems is otherwise negative. [facility] Past Medical History Source: nursing notes reviewed Medical History Arthritis Foot ulcer HTN (hypertension) Insulin dependent type 1 diabetes mellitus Pacemaker Surgical History History of cataract surgery History of pacemaker Family History Family History Father No problems noted. Mother No problems noted. Social History Social History Housing: Apartment Alcohol intake: never Patient Tobacco Use Status: Never used Tobacco Use of substances other than those prescribed or required for medical reasons: No Advance Directives: Yes Advance Directives on File: Yes Advance Directives Date on File: 06/17/20 Current occupational status: retired and disabled Physical Exam Vital Signs: Vital Signs: Last Vital Signs Temp 100.1 F 04/24/21 00:20 Pulse 93 04/24/21 05:17 Resp 16 04/24/21 05:17 BP 123/64 04/24/21 05:17 Pulse Ox 96 04/24/21 05:17 BMI result Body Mass Index 40.3 VITAL SIGNS: Reviewed. GENERAL: Well developed, well nourished, in no acute distress. HEAD: Normocephalic/atraumatic EYES: PERRLA, EOMI OROPHARYNX: no oral lesions noted, posterior pharynx clear, mildly dry mucosa LUNGS: Good inspiratory effort, no rales/rhonchi/wheezing noted, no tachypnea. SpO2<96> CARDIOVASCULAR: Regular rate and rhythm without noted murmurs, no JVD or lower extremity edema. ABDOMEN: Obese, Soft, non-tender, non-distended with bowel sounds. SKIN: Inspection of the skin reveals no rashes NEUROLOGIC: Alert and oriented x 4. Strength and sensation to light touch were grossly intact x 4. Course Course Course Narrative: This is a 75-year-old female with progressively worsening deconditioning after reviewing prior notes. On review of prior documentation the provider expressed concern regarding patient's weakness and deconditioned state, however patient adamantly refused to stay for further evaluation by case management physical therapy. On review of all investigations there are no acute findings other than patient is COVID-19 positive and there is a noted increase in the BNP without clinical findings or objective (chest x-ray) to further support a CHF exacerbation. This was further discussed with the inpatient hospitalist who feels that patient is a candidate for case management and declines admission at this time. All results and findings were discussed with the patient at bedside and she is otherwise stable and agreeable for evaluation by Physical therapy and Case Management. Signed out: f/u UA and med rec Reevaluation(s) Reevaluation #1: Patient placed in physician observation because the patient needed more time for evaluation by case management and physical therapy. At the time observation was started the patient's vital signs were stable, patient is alert and oriented, neuro: Nonfocal, CV RRR, lungs clear Time: 05:25 Medical Decision Making Lab Data Result diagrams: 04/24/21 01:02 04/24/21 01:02 Labs: Lab Results 04/24/21 04/24/21 04/24/21 Range/Units 01:02 01:02 01:02 WBC 8.2 (4.8-10.8) X10*3/uL RBC 4.44 (4.20-5.50) X10*6/uL Hgb 12.5 (12.0-16.0) g/dl Hct 38.6 (37.0-47.0) % MCV 86.9 (80.0-98.0) fL MCH 28.2 (27.0-33.0) pg MCHC 32.4 (31.0-35.0) g/dl RDW 13.1 (11.0-16.0) % Plt Count 206 (160-400) X10*3/uL MPV 9.9 (9.4-12.3) fL Immature Gran % (Auto) 0.9 H (0.0-0.4) % Neut % (Auto) 80.8 H (45-73) % Lymph % (Auto) 9.5 L (20-40) % Gilliam % (Auto) 8.7 (2-11) % Eos % (Auto) 0.0 (0-4) % Baso % (Auto) 0.1 (0-2) % Lymph # (Auto) 0.8 L (1.2-4.9) X10*3/uL Gilliam # (Auto) 0.7 (0.1-1.2) X10*3/uL Eos # (Auto) 0.0 (0.0-0.4) X10*3/uL Baso # (Auto) 0.0 (0.0-0.2) X10*3/uL Abs Immat Gran (auto) 0.07 H (0.00-0.03) X10*3/uL Absolute Neuts (auto) 6.6 (2.0-8.3) x10*3/uL Absolute Nucleated RBC 0.000 (0.0-0.012) X10*3/uL Nucleated RBC % (auto) 0.0 (0.0-0.2) /100WBC PT 15.4 H (9.9-13.0) SEC INR 1.3 H (0.9-1.1) Sodium 136 (135-145) mmol/L Potassium 3.8 (3.3-5.1) mmol/L Chloride 99 (96-108) mmol/L Carbon Dioxide 26 (22-29) mmol/L Anion Gap 15 (12-20) BUN 11 (9-16) mg/dL Creatinine 0.77 (0.5-1.4) mg/dL Estim Creat Clear Calc 80.6 Estimated GFR > 60 Random Glucose 218 H (60-115) mg/dL Calcium 9.2 D (8.4-10.2) mg/dL Total Bilirubin 0.3 (0.0-1.0) mg/dL AST 29 D (5-31) U/L ALT 15 (0-31) U/L Alkaline Phosphatase 122 H (39-117) U/L B-Natriuretic Peptide (<100) pg/mL Total Protein 6.0 L (6.5-8.0) g/dL Albumin 3.3 L (3.5-5.0) g/dL Influenza Type A (PCR) (Negative) Influenza Type B (PCR) (Negative) RSV RNA Qual (PCR) (Negative) SARS-CoV-2 RNA (RT-PCR) (Negative) 04/24/21 04/24/21 Range/Units 01:02 01:02 WBC (4.8-10.8) X10*3/uL RBC (4.20-5.50) X10*6/uL Hgb (12.0-16.0) g/dl Hct (37.0-47.0) % MCV (80.0-98.0) fL MCH (27.0-33.0) pg MCHC (31.0-35.0) g/dl RDW (11.0-16.0) % Plt Count (160-400) X10*3/uL MPV (9.4-12.3) fL Immature Gran % (Auto) (0.0-0.4) % Neut % (Auto) (45-73) % Lymph % (Auto) (20-40) % Gilliam % (Auto) (2-11) % Eos % (Auto) (0-4) % Baso % (Auto) (0-2) % Lymph # (Auto) (1.2-4.9) X10*3/uL Gilliam # (Auto) (0.1-1.2) X10*3/uL Eos # (Auto) (0.0-0.4) X10*3/uL Baso # (Auto) (0.0-0.2) X10*3/uL Abs Immat Gran (auto) (0.00-0.03) X10*3/uL Absolute Neuts (auto) (2.0-8.3) x10*3/uL Absolute Nucleated RBC (0.0-0.012) X10*3/uL Nucleated RBC % (auto) (0.0-0.2) /100WBC PT (9.9-13.0) SEC INR (0.9-1.1) Sodium (135-145) mmol/L Potassium (3.3-5.1) mmol/L Chloride (96-108) mmol/L Carbon Dioxide (22-29) mmol/L Anion Gap (12-20) BUN (9-16) mg/dL Creatinine (0.5-1.4) mg/dL Estim Creat Clear Calc Estimated GFR Random Glucose (60-115) mg/dL Calcium (8.4-10.2) mg/dL Total Bilirubin (0.0-1.0) mg/dL AST (5-31) U/L ALT (0-31) U/L Alkaline Phosphatase (39-117) U/L B-Natriuretic Peptide 289 H (<100) pg/mL Total Protein (6.5-8.0) g/dL Albumin (3.5-5.0) g/dL Influenza Type A (PCR) NEGATIVE (Negative) Influenza Type B (PCR) NEGATIVE (Negative) RSV RNA Qual (PCR) NEGATIVE (Negative) SARS-CoV-2 RNA (RT-PCR) POSITIVE A (Negative) ECG Data Attestation: I personally reviewed and interpreted this ECG as follows: Prior ECG tracings: available for review (04/17/2021 no acute changes on comparison) Interpretation: Paced rhythm, HR-93, WY-224/QRS-162/QTC-494 Discharge Plan Discharge Clinical Impression: Physical deconditioning, Weakness, Lab test positive for detection of COVID-19 virus Patient Disposition: Still a Patient Prescriptions: No Action ketoconazole 2 % cream 1 applic topical BID 30 Days Qty: 60 RF: 3 wiiyenbe-zsnqlrapx-HF 3.5-10,000-1 mg/mL-unit/mL-% drops,suspension 4 drp otic (ears) Q8H 7 Days Qty: 10 RF: 0 insulin degludec 100 unit/mL (3 mL) insulin pen 65 unit subcut BID 30 Days Qty: 39 RF: 2 baclofen 10 mg tablet 10 mg PO BID 10 Days Qty: 20 RF: 0 hydrocortisone 1 % cream 1 appl topical BID 30 Days Qty: 28 RF: 2 mupirocin 2 % ointment 1 appl topical BID 10 Days Qty: 22 RF: 0 (DME) Chair, shower Misc See Rx Instructions .ROUTE .MEDSUPPLY Qty: 1 RF: 0 losartan 100 mg tablet 100 mg PO DAILY Qty: 90 RF: 1 alcohol swabs [Alcohol Prep Pads] Pads, Medicated 1 pad topical TID Qty: 100 RF: 11 Tresiba FlexTouch U-100 100 unit/mL (3 mL) insulin pen 65 unit subcut BID 30 Days Qty: 39 RF: 6 FreeStyle Lite Strips Strip 1 strip miscellaneous QID Qty: 400 RF: 3 furosemide 40 mg tablet 40 mg PO DAILY 90 Days Qty: 90 RF: 2 docusate sodium 100 mg capsule 100 mg PO BID Qty: 60 RF: 6 polyethylene glycol 3350 [Miralax] 17 gram/dose powder 17 g PO .COMPLEX Qty: 850 RF: 6 Pradaxa 150 mg capsule 150 mg PO BID 90 Days Qty: 180 RF: 1 albuterol sulfate 90 mcg/actuation HFA aerosol inhaler 2 puff PO Q4-6H PRN (Reason: bronchospasm) 90 Days Qty: 90 RF: 1 amitriptyline 25 mg tablet 25 mg PO BEDTIME Qty: 30 RF: 4 insulin aspart U-100 [Novolog Flexpen U-100 Insulin] 100 unit/mL (3 mL) insulin pen 24 unit subcut TID 30 Days Qty: 15 RF: 6 lancets [FreeStyle Lancets] 28 gauge misc 28 gauge topical TID Qty: 100 RF: 6 pen needle, diabetic [BD Laury 2nd Gen Pen Needle] 32 gauge x 5/32 needle 1 ea miscellaneous TID 30 Days Qty: 100 RF: 6 nitrofurantoin macrocrystal 100 mg capsule 100 mg PO BID 7 Days Qty: 14 RF: 0 clotrimazole-betamethasone 1-0.05 % cream 1 appl topical BID 30 Days Qty: 45 RF: 3 colchicine [Colcrys] 0.6 mg tablet 0.6 mg PO DAILY Qty: 90 RF: 2 simvastatin 40 mg tablet 40 mg PO BEDTIME Qty: 90 RF: 2 omeprazole 20 mg capsule,delayed release(DR/EC) 20 mg PO DAILY 30 Days Qty: 30 RF: 1 Desitin Rapid Relief 13 % cream 1 appl topical BID-QID PRN (Reason: skin irritation) 15 Days Qty: 454 RF: 0 flecainide 100 mg tablet 100 mg PO BID Qty: 180 RF: 0 oxycodone 5 mg tablet 5 mg PO BID 30 Days Qty: 60 RF: 0 atenolol 50 mg tablet 50 mg PO DAILY Qty: 30 RF: 3 docusate sodium [Colace] 100 mg capsule 100 mg PO BID Qty: 10 RF: 0 cyclobenzaprine 10 mg tablet 10 mg PO TID PRN (Reason: muscle spasm) Qty: 10 RF: 0 gabapentin [Neurontin] 300 mg capsule 300 mg PO BID Qty: 20 RF: 0 cefuroxime axetil 250 mg tablet 250 mg PO BID 7 Days Qty: 14 RF: 0 acetaminophen [Tylenol] 325 mg tablet 650 mg PO Q6H PRN (Reason: pain) Qty: 30 RF: 0 (DME) FreeStyle Lite Strips Strip See Rx Instructions strip Not Applicable QID Qty: 10 RF: 0 lorazepam 0.5 mg tablet 0.5 mg PO BID PRN (Reason: anxiety) RF: 0 docusate sodium 100 mg capsule 100 mg PO BID PRNRF: 0 (DME) blood pressure monitor [Blood Pressure Kit] Kit See Rx Instructions .ROUTE .MEDSUPPLY Qty: 1 RF: 0 (DME) humidifiers [Cool Mist Humidifier] Misc See Rx Instructions .ROUTE .MEDSUPPLY Qty: 1 RF: 0 Trulicity 1.5 mg/0.5 mL pen injector 1.5 mg subcut QWEEK 28 Days Qty: 2 RF: 2 alpha lipoic acid 600 mg tablet 600 mg PO DAILY 30 Days Qty: 30 RF: 0 (DME) comp.stocking,thigh,long,x-lrg Misc See Rx Instructions .Route Qty: 2 RF: 0 isosorbide mononitrate 30 mg tablet extended release 24 hr 30 mg PO DAILY 90 Days Qty: 90 RF: 2 nystatin 100,000 unit/gram cream 1 appl topical DAILY 30 Days Qty: 30 RF: 1 gabapentin 400 mg capsule 400 mg PO BID 30 Days Qty: 60 RF: 2
--- NOTE | 2021-04-24 00:32 | ECG_ITS ---
Test Reason : WEAKNESS Blood Pressure : / mmHG Vent. Rate : 093 BPM Atrial Rate : 093 BPM P-R Int : 224 ms QRS Dur : 162 ms QT Int : 398 ms P-R-T Axes : 056 077 -32 degrees QTc Int : 494 ms Atrial-sensed ventricular-paced rhythm with prolonged AV conduction Abnormal ECG When compared with ECG of 17-APR-2021 23:31, Vent. rate has increased BY 4 BPM Referred By: Vikki Mi Electronically Signed By:Homer Oglesby
[2021-04-24 01:09] LABS: MANUAL DIFF FLAG NO
[2021-04-24 01:12] LABS: Basophils Percent Auto 0.1 % (0-2); Hematocrit 38.6 % (37.0-47.0); Hemoglobin 12.5 g/dl (12.0-16.0); Imm Gran Abs Auto 0.07 X10*3/uL (0.00-0.03); Imm Gran Pct Auto 0.9 % (0.0-0.4); Lymphocytes Absolute Auto 0.8 X10*3/uL (1.2-4.9); Lymphocytes Percent Auto 9.5 % (20-40); Mean Corpuscular HGB Conc 32.4 g/dl (31.0-35.0); Mean Corpuscular Hemoglobin 28.2 pg (27.0-33.0); Mean Corpuscular Volume 86.9 fL (80.0-98.0); Mean Platelet Volume 9.9 fL (9.4-12.3); Monocytes Absolute Auto 0.7 X10*3/uL (0.1-1.2); Monocytes Percent Auto 8.7 % (2-11); Neutrophils Absolute Auto 6.6 x10*3/uL (2.0-8.3); Neutrophils Percent Auto 80.8 % (45-73); Platelet Count 206 X10*3/uL (160-400); Red Blood Count 4.44 X10*6/uL (4.20-5.50); Red Cell Distribution Width 13.1 % (11.0-16.0); White Blood Count 8.2 X10*3/uL (4.8-10.8)
[2021-04-24 01:14] LABS: Venous Blood Gas Refer to POC result
[2021-04-24 01:27] LABS: INTERNATIONAL NORM RATIO 1.3 (0.9-1.1); Prothrombin Time 15.4 SEC (9.9-13.0)
[2021-04-24 01:28] LABS: Alanine Aminotransferase 15 U/L (0-31); Albumin Level 3.3 g/dL (3.5-5.0); Alkaline Phosphatase 122 U/L (39-117); Anion Gap 15 (12-20); Aspartate Amino Transferase 29 U/L (5-31); Bilirubin Total 0.3 mg/dL (0.0-1.0); Blood Urea Nitrogen 11 mg/dL (9-16); Calcium 9.2 mg/dL (8.4-10.2); Carbon Dioxide 26 mmol/L (22-29); Chloride 99 mmol/L (96-108); Creatinine Clr Calc Pharmacy 80.6; Estimated Glomerular Filt Rate > 60; Glucose Random 218 mg/dL (60-115); Potassium 3.8 mmol/L (3.3-5.1); Sodium 136 mmol/L (135-145)
[2021-04-24 01:34] LABS: B Type Natriuretic Peptide 289 pg/mL (<100)
[2021-04-24 01:50] LABS: Influenza A PCR NEGATIVE (Negative); Influenza B PCR NEGATIVE (Negative); Resp Syncy Virus RNA Qual PCR NEGATIVE (Negative)
[2021-04-24 01:55] LABS: SARS COV2 PCR INHOUSE POSITIVE (Negative)
--- NOTE | 2021-04-24 02:39 | PC.NURSE ---
The patients' son has made multiple phone calls to the ER to speak with me. He is difficult to understand and sounds as if he might be intoxicated. Heidi attempted to update him on his mothers' status with each phone call, but- again - its very difficult to understand him (due to poor connection, not due to language barrier) so I'm not sure that I'm answering the questions he's asking. MD Zavala aware.
--- NOTE | 2021-04-24 03:19 | PC.NURSE ---
Pt moved into bed 3 where we rolled her from side to side. She had a small amount of dried stool on her skin - area cleansed. Clean linens provided. Pt repositioned. industrial gas fitter present to explain all of this. Pt verbalized an understanding. RR remains WNL, no cyanosis, respirations are non-labored and room air sat's are 95%. Will continue to monitor.
--- NOTE | 2021-04-24 03:31 | PC.NURSE ---
Pt encouraged to notify me if/when she may be able to void. She is aware that ER MD requests urine sample, states she can not void at the moment. PO fluids given. Will continue to monitor.
[2021-04-24] MEDS: 0.9 % Sodium Chloride 500 ML 999 ML IV (05:54)
--- NOTE | 2021-04-24 05:55 | PC.NURSE ---
The pt has been sleeping, wakes to verbal stimuli. Jose G, deckhand clam dredge, came to bedside with me to explain to the patient that Dr. Dudley prefers she remain in the ED until she can have a case management eval this AM. The pt is agreeable to this. In addition, nit smelled as if the patient had a bowel movement. When asked she replied i don't know. Myself and Rowena, product/device technologist, prepared to clean the patient but when we turned her she had not had a bowel movement, but she was incontinent of a large amount of very foul smelling urine. Next, we straight cath'd the pt in order to obtain a sterile urine sample, but no urine is draining from her bladder upon placement. Bladder scan reveals 60cc urine. Straight cath left in place and 500cc NS IV gtt initiated per request MD Dudley. Pt is resting in bed. Prior to straight cath we changed linens and cleansed her skin. The pt remains on room air with sats 94% or better. SHe is awaiting case management eval.
[2021-04-24] MEDS: Furosemide 40 MG/4 ML VIAL IVPUSH (06:39)
[2021-04-24 06:57] LABS: Appearance Urine CLEAR; Color Urine YELLOW; Glucose Urine UA NEG (NEG); Leukocyte Esterase Urine TRACE (NEG); Nitrite Urine POS (NEG); UACC Culture Trigger YES; Urine Blood NEG (NEG); Urine Ketones NEG (NEG); Urine Protein NEG (NEG-TRACE)
[2021-04-24 07:07] LABS: Bacteria Urine 3+ /LPF; RBC Urine 0 /HPF (0); Squamous Epithelial Cell Urine 2+ /LPF
--- NOTE | 2021-04-24 11:15 | PHA.MEDREC ---
Pharmacy Consult ? Medication Reconciliation Pharmacy has completed the medication reconciliation.
[2021-04-24] MEDS: Acetaminophen 325 MG TABLET 650 MG PO ×2 (12:41→18:39)
[2021-04-24 13:34] LABS: Glucose, Whole Blood 76 mg/dL (60-115)
--- NOTE | 2021-04-24 13:36 | PC.NURSE ---
pt changed over twice, purewick placed to alleviate urinary incontinence. pt assisting w repositioning in bed. tolerating po fluids w/o issue.
--- NOTE | 2021-04-24 13:51 | PC.NURSE ---
pt son has called multiple times this morning, when staff has answered phone, there has been no one on the other line. previous shift notes suggest son has called many times since pt admission w varying levels of participation in conversation w staff. previous notes questioned if caller is intoxicated.
--- NOTE | 2021-04-24 15:27 | MHC.CM.ED ---
Received case management consult overnight. Patient came to ER due to weakness. Patietn + Covid. Physical therapy eval completed. Short term rehab is recommended. Due to Covid status, patient will be difficult to place. Referral broadcasted in [employer]. Continue to monitor for d/c needs.
--- NOTE | 2021-04-24 20:16 | PC.NURSE ---
SPOKE W/PTS DAUGHTER RE: CM & DIFF PLACEMENT D/T COVID. DAUGHTER EXPRESSED SHE DID NOT WANT MOM WAITING IN ED. WILL TALK TO FAMILY MEMBERS RE: TAKING MOM HOME TOMORROW, WITH FAMILY MEMBERS . DAUGHTER WILL CALL BACK TO UPDATE ONCE SHE HAS SPOKEN TO FAMILY RE: PLAN FOR MOM
--- NOTE | 2021-04-25 09:10 | PC.NURSE ---
Pt A&Ox3, offers no complaints, pericare and repositioned, breakfast provided. BG found to be in the 50's, meal tray with OJ provided. Will recheck after breakfast. Call mane within reach, will continue to monitor.
[2021-04-25 09:11] LABS: Glucose, Whole Blood 56 mg/dL (60-115)
[2021-04-25 09:35] VITALS: BP 124/35; PULSE 89; RESP 16; TEMP 37.3; O2SAT 96
[2021-04-25 10:15] LABS: Glucose, Whole Blood 108 mg/dL (60-115)
[2021-04-25 11:10] VITALS: BP 108/74; PULSE 89
[2021-04-25] MEDS: Losartan Potassium 50 MG TABLET 100 MG PO (11:10)
[2021-04-25] MEDS: Flecainide Acetate 50 MG TABLET 100 MG PO (11:10)
[2021-04-25] MEDS: Dabigatran Etexilate Mesylate 150 MG CAPSULE PO (11:11)
[2021-04-25] MEDS: atenoloL 50 MG TABLET PO (11:11)
[2021-04-25] MEDS: Acetaminophen 325 MG TABLET 650 MG PO (11:11)
[2021-04-25] MEDS: Omeprazole 20 MG CAPSULE.DR PO (11:11)
[2021-04-25] MEDS: Colchicine 0.6 MG TABLET PO (11:12)
[2021-04-25] MEDS: Isosorbide Mononitrate 30 MG TAB.ER.24H PO (11:12)
[2021-04-25] MEDS: SITagliptin Phosphate 50 MG TABLET PO (11:12)
[2021-04-25] MEDS: Gabapentin 400 MG CAPSULE PO (11:12)
[2021-04-25] MEDS: Furosemide 40 MG TABLET PO (11:12)
[2021-04-25] MEDS: oxyCODONE HCl Immed Release 5 MG TABLET PO (11:12)
--- NOTE | 2021-04-25 11:19 | PC.NURSE ---
Medicated as per MAR orders, no complaints at this time, inc care provided T&Px2. Will continu to monitor.
--- NOTE | 2021-04-25 12:57 | PC.NURSE ---
Pt sleeping at this time, no signs of distress noted, awaiting meal tray, will check BG at that time. Call mane within reach, will continue to monitor.
[2021-04-25 14:00] VITALS: BP 107/46; PULSE 71; RESP 16; O2SAT 96
[2021-04-25 14:02] LABS: Glucose, Whole Blood 85 mg/dL (60-115)
--- NOTE | 2021-04-25 14:41 | PC.NURSE ---
Pt A&Ox3, no complaints at this time, ate approx 25% of lunch, awaiting consults. Repositioned, checked for urine inc, dry at this time. Will continue to monitor.
--- NOTE | 2021-04-25 15:22 | MHC.CM.ED ---
T/W spoke with patient's daughter,Joon Luu via telephone at [phone]. Patient lives with her boyfriend and son. 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 PCP verified. Copy of HCP verified to be on file. Patient has received 2 Pfizer vaccines. [facility] so that he can care for patient at home while she quarantines. Patient will be able to discharge home tomorrow, 04/26. [facility] is requesting a RX for a beside commode. Patient will need BLS transport at d/c. Referral made to [facility] for detention, physical therapy and occupational therapy. Face to face completed. Continue to monitor for d/c needs.
[2021-04-25 16:29] VITALS: BP 90/47; PULSE 95; RESP 18; TEMP 36.9; O2SAT 96
--- NOTE | 2021-04-25 17:03 | PC.NURSE ---
Pt A&Ox3, pericare, linen change and T&Px2 provided. vs as charted, pt offers no complaints at this time. Will continue to monitor.
[2021-04-25] MEDS: Insulin Glargine,Hum.rec.anlog 100 UNIT/ML 10 ML VIAL 45 UNIT SUBCUT (21:40)
[2021-04-25 23:30] VITALS: BP 165/65; PULSE 78; RESP 16; TEMP 37; O2SAT 97
[2021-04-26] VITALS (10 sets, daily range): BP systolic 94–165; BP diastolic 40–65; PULSE 73–85; RESP 16–20; TEMP 37.1–37.2; O2SAT 91–99
[2021-04-26] MEDS: Gabapentin 400 MG CAPSULE PO ×3 (00:10→20:19)
[2021-04-26] MEDS: Atorvastatin Calcium 20 MG TABLET PO ×2 (00:10→20:19)
[2021-04-26] MEDS: oxyCODONE HCl Immed Release 5 MG TABLET PO ×3 (00:11→20:19)
[2021-04-26] MEDS: Amitriptyline HCl 25 MG TABLET PO ×2 (00:11→20:19)
[2021-04-26] MEDS: Acetaminophen 325 MG TABLET 650 MG PO ×4 (00:11→22:44)
[2021-04-26] MEDS: Flecainide Acetate 50 MG TABLET 100 MG PO ×3 (00:14→21:09)
--- NOTE | 2021-04-26 00:30 | PC.NURSE ---
PT AWAITING FOR ROOM ASSIGNMENT. WILL CONTINUE TO MONITOR PT. PT IN NAD AT THIS TIME.
--- NOTE | 2021-04-26 02:30 | PC.NURSE ---
PT RESTING IN STRETCHER IN NAD. RESPIRATIONS N/L. WILL CONTINUE TO MONITOR PT..
--- NOTE | 2021-04-26 05:14 | PC.NURSE ---
PT RESTING IN STRETCHER DENIES COMPLAINTS. PT AWAKE AND ALERT, RESPIRATIONS N/L. SKIN W/D. PT AWAITING FOR ROOM ASSIGNMENT.
[2021-04-26 08:26] LABS: VBG Base Excess 2.9 mmol/L; VBG HCO3 28 mmol/L (22-26); VBG pCO2 44 mmHg; VBG pO2 51 mmHg
[2021-04-26] MEDS: Insulin Glargine,Hum.rec.anlog 100 UNIT/ML 10 ML VIAL 45 UNIT SUBCUT ×2 (08:49→20:17)
[2021-04-26] MEDS: Omeprazole 20 MG CAPSULE.DR PO (08:49)
[2021-04-26] MEDS: Isosorbide Mononitrate 30 MG TAB.ER.24H PO (08:50)
[2021-04-26] MEDS: Furosemide 40 MG TABLET PO (08:50)
[2021-04-26] MEDS: atenoloL 50 MG TABLET PO (08:51)
[2021-04-26] MEDS: Losartan Potassium 50 MG TABLET 100 MG PO (08:51)
[2021-04-26] MEDS: Dabigatran Etexilate Mesylate 150 MG CAPSULE PO ×2 (10:12→21:12)
[2021-04-26] MEDS: SITagliptin Phosphate 50 MG TABLET PO (10:12)
[2021-04-26] MEDS: Colchicine 0.6 MG TABLET PO (10:12)
[2021-04-26] MEDS: Nystatin/Triamcinolone Cream 15 GM TUBE 1 APPL TOPICAL ×2 (10:12→21:13)
--- NOTE | 2021-04-26 15:15 | PC.NURSE ---
pt dtr called and the nephew will be here between 7-9pm steven, she wondered if it was too late to discharge and I assured her that it was a perfect time for discharge.
--- NOTE | 2021-04-26 15:45 | MHC.CM.ED ---
i spoke c patient's daughter, sola, who tells me the patient's grandson from [place] who is going to care for the patient in her apt while she recovers has not arrived yet. evidently he is taking a train from [place] to [place] and will not get here until 7 - 9 pm this evening. because of this she will not be dc'd from the e.d. until tomorrow am [facility]. at 9 am tomorrow morning the e.d. CM will need to call sola, ph: [phone], to arrange a time for patient to return home via [facility]. a med nec has already been prepared. cm to cont. to follow.
[2021-04-26 20:27] LABS: Glucose, Whole Blood 141 mg/dL (60-115)
[2021-04-26] MEDS: Latanoprost 0.005 % Ophth Sol 2.5 ML DROPS 1 DROP EYE-BOTH (21:12)
[2021-04-26] MEDS: Zinc Oxide 20% Ointment 28.35 GM TUBE 1 APPL TOPICAL (21:12)
--- NOTE | 2021-04-26 21:56 | MHC.CM.ED ---
Received a call from Nikhil, son from [place]. Aware that pt will be transported to home tomorrow 04/27 at 8am. Nikhil will be available to care for her then. Referral placed to [facility]. Med Nec completed and given to community service worker. CM to follow for d/c needs.
--- NOTE | 2021-04-27 03:07 | PC.NURSE ---
REPORT TAKEN FROM [facility], FIRST CONTACT WITH PT. RESTING IN BED EYES CLOSED, SKIN PWD, RESPIRATIONS EVEN UNLABORED. AWAITING DC HOME IN AM.
[2021-04-27] MEDS: Acetaminophen 325 MG TABLET 650 MG PO (06:04)
[2021-04-27] MEDS: Omeprazole 20 MG CAPSULE.DR PO (06:04)
--- NOTE | 2021-04-27 06:36 | PC.NURSE ---
PT AWAKENED TO TAKE SCHEDULED MEDS, SMILING, PLEASANT, SKIN PWD RESPIRATIONS EVEN UNLABORED. NO S/S RESP DISTRESS. AWAITING ?SON TO MARKETING CLERK THIS AM FOR DC HOME.
[2021-04-27 06:45] VITALS: RESP 17
[2021-04-27 07:27] VITALS: BP 116/41; PULSE 74; RESP 16; TEMP 37.2; O2SAT 92
--- NOTE | 2021-04-27 09:03 | MHC.CM.ED ---
Patient will be d/c'd home with [facility]. [facility] is en route at this time. Patient's son, Nikhil made aware via telephone. [facility] aware. Continue to monitor for d/c needs.
[2021-04-27 09:39] VITALS: TEMP 36.8; O2SAT 92
--- NOTE | 2021-04-27 09:39 | PC.NURSE ---
Pt alert, unlabored resp at rest. skin pwd. report to EMS at bedside.
== END 2021-04-27 09:41 | disposition home or self-care (01) ==
PROVIDERS: Emergency Provider Student in an Organized Health Care Education/Training Program; PCP Physician Assistant
DX: U07.1 COVID-19 (principal); R53.1 Weakness; R06.02 Shortness of breath; Z79.899 Other long term (current) drug therapy
CPT/HCPCS: 0241U; 36415; 71045; 80053; 81001; 81003; 82803; 82947; 83880; 85025; 85610; 87086; 93005; 96361; 96374; 97163; 99285; J1940

== ENCOUNTER 2021-07-31 16:15 | Outpatient (REF) | payer MEDICARE, MEDICAID, SELFPAY ==
[2021-07-31 16:26] LABS: Appearance Urine CLEAR; Color Urine YELLOW; Glucose Urine UA NEG (NEG); Leukocyte Esterase Urine 1+ (NEG); Nitrite Urine NEG (NEG); Urine Blood TRACE (NEG); Urine Ketones NEG (NEG); Urine Protein NEG (NEG-TRACE)
[2021-07-31 16:31] LABS: Bacteria Urine 1+ /LPF; Squamous Epithelial Cell Urine 1+ /LPF
[2021-07-31 16:32] LABS: RBC Urine 0-2 /HPF (0)
== END 2021-07-31 16:16 | disposition home or self-care (01) ==
LOC: HO.LNP 16:15
PROVIDERS: Visit Provider Internal Medicine
DX: R30.0 Dysuria (principal)
CPT/HCPCS: 81001

== ENCOUNTER 2021-08-20 06:56 | Emergency (ER) | payer MEDICARE, MEDICAID, SELFPAY ==
--- NOTE | ~2021-08-20 | XR_ITS ---
EXAMINATION: XR LUMBOSACRAL SPINE CLINICAL INFORMATION: Back pain. COMPARISON: None TECHNIQUE: Three views of the lumbosacral spine. Penetration on the lateral projection is suboptimal. FINDINGS: There is normal lumbar lordosis and spinal alignment. Mild to moderate multilevel marginal osteophyte formation is seen. The vertebral bodies are intact is no acute fracture. Multiple surgical clips overlie the right upper quadrant. XR/XR lumbar spine 2-3V IMPRESSION: Mild to moderate multilevel marginal osteophyte formation. No overt fracture.
--- NOTE | ~2021-08-20 | XR_ITS ---
EXAMINATION: XR HIP, RIGHT CLINICAL INFORMATION: Right hip pain. COMPARISON: None TECHNIQUE: Two views of the right hip. FINDINGS: Mild bilateral hip and pubic symphysis degenerative joint changes are seen. There is no acute fracture or dislocation. The soft tissues are unremarkable. XR/XR hip RT w PEL1V IMPRESSION: Mild degenerative joint changes most consistent with osteoarthritis. No overt fracture.
[2021-08-20 07:12] VITALS: BP 157/76; BP 163/60; PULSE 81; PULSE 93; RESP 18; TEMP 36.7; O2SAT 97; O2SAT 98; BMI 48.4
[2021-08-20 07:28] VITALS: BP 163/60; PULSE 81; RESP 16; O2SAT 96
--- NOTE | 2021-08-20 07:34 | ECG_ITS ---
Test Reason : fall Blood Pressure : / mmHG Vent. Rate : 078 BPM Atrial Rate : 078 BPM P-R Int : 216 ms QRS Dur : 188 ms QT Int : 444 ms P-R-T Axes : 074 075 035 degrees QTc Int : 506 ms Atrial-sensed ventricular-paced rhythm with prolonged AV conduction Abnormal ECG When compared with ECG of 24-APR-2021 00:41, Vent. rate has decreased BY 15 BPM Referred By: Elizabeth Coughlin Electronically Signed By:OZIEL CAVAZOS MD
--- NOTE | 2021-08-20 07:36 | ED_ITS ---
HPI - Fall General Chief Complaint: Fall Stated Complaint: back pain due to fall Time Seen by Provider: 08/20/21 07:27 Source: patient Mode of arrival: ambulatory Limitations: no limitations History of Present Illness HPI Narrative: Patient comes to the emergency room after falling. Patient states that this morning she stood up out of her bed fast, felt lightheaded, tried using her walker to stand up, fell on the floor landing on her buttocks. Patient states she did not hit her head, did not lose consciousness. Patient's son was able to help her to sit up. Patient complaining of lower back pain and right-sided hip pain. Patient states that after she was helped to sit up, patient was able to walk. At this time, patient complaining of lumbar discomfort. Patient states that she does not have any chest pain, no shortness of breath, no dizziness at this time. Related Data Home Medications Medication Instructions Recorded Confirmed blood sugar diagnostic #10 ea 03/12/20 06/30/21 docusate sodium 100 mg capsule 100 mg PO BID PRN 03/12/20 06/30/21 brinzolamide 1 %-brimonidine 0.2 % 1 drp OPHTHALMIC (EYE) BID 04/24/21 06/30/21 eye drops,suspension (Simbrinza) insulin aspart U-100 100 unit/mL See Protocol SUBCUT TIDAC 04/24/21 06/30/21 (3 mL) subcutaneous pen (Novolog Flexpen U-100 Insulin aspart) latanoprost 0.005 % eye drops 1 drp OPHTHALMIC (EYE) BEDTIME 04/24/21 06/30/21 polyethylene glycol 3350 17 17 g PO BID PRN 04/24/21 06/30/21 gram/dose oral powder (Miralax) walker 06/30/21 06/30/21 Previous Rx's Medication Instructions Recorded blood pressure monitor (Blood #1 ea 03/12/20 Pressure Kit) humidifiers (Cool Mist Humidifier) #1 ea 03/12/20 Shower Chair (Chair, shower) #1 ea 09/14/20 alpha lipoic acid 600 mg tablet 600 mg PO DAILY 30 Days #30 tab 12/22/20 comp.stocking,thigh,long,x-lrg #2 ea 12/22/20 isosorbide mononitrate 30 mg 30 mg PO DAILY 90 Days #90 tab 12/22/20 tablet,extended release 24 hr furosemide 40 mg tablet 40 mg PO DAILY 90 Days #90 tab 12/24/20 pen needle, diabetic 32 gauge x 1 ea MISCELLANEOUS TID 30 Days 01/12/21 (BD Laury 2nd Gen Pen Needle) #100 ea clotrimazole-betamethasone 1 1 appl TOPICAL BID 30 Days #45 g 03/15/21 %-0.05 % topical cream colchicine 0.6 mg tablet (Colcrys) 0.6 mg PO DAILY #90 tab 03/18/21 simvastatin 40 mg tablet 40 mg PO BEDTIME #90 tab 03/18/21 zinc oxide 13 % topical cream 1 appl TOPICAL BID-QID PRN 15 Days 03/29/21 (Desitin Rapid Relief) #454 g acetaminophen 325 mg tablet 650 mg PO Q6H PRN #30 tab 04/03/21 (Tylenol) atenolol 50 mg tablet 50 mg PO DAILY #30 tab 04/20/21 losartan 100 mg tablet 100 mg PO DAILY #90 tab 05/03/21 omeprazole 20 mg capsule,delayed 20 mg PO DAILY #30 cap 06/07/21 release sitagliptin 50 mg tablet (Januvia) 50 mg PO DAILY #30 tab 06/07/21 albuterol sulfate 90 mcg/actuation 2 puff PO Q4-6H PRN 90 Days #90 g 06/30/21 aerosol inhaler alcohol swabs (Alcohol Prep Pads) 1 pad TOPICAL TID #100 pad 06/30/21 insulin degludec 100 unit/mL (3 65 unit (0.65 mL) SUBCUT BID 30 06/30/21 mL) subcutaneous pen (Tresi Days #39 ml FlexTouch U-100 insulin) walker (Ultra-Light Rollator) #1 ea 06/30/21 dabigatran etexilate 150 mg 150 mg PO BID 90 Days #180 cap 07/02/21 capsule (Pradaxa) blood sugar diagnostic (FreeStyle 1 strip MISCELLANEOUS QID #400 07/12/21 Lite Strips) strip blood-glucose meter (FreeStyle #1 ea 07/12/21 Lite Meter) lancets 28 gauge (FreeStyle 28 gauge TOPICAL TID #100 ea 07/12/21 Lancets) flecainide 100 mg tablet 100 mg PO BID #180 tab 07/14/21 amitriptyline 25 mg tablet 25 mg PO BEDTIME #30 tab 08/01/21 nitrofurantoin macrocrystal 100 mg 100 mg PO BID 5 Days #10 cap 08/02/21 capsule oxycodone 5 mg tablet 5 mg PO BID 30 Days #60 tab 08/10/21 gabapentin 400 mg capsule 400 mg PO BID 30 Days #60 cap 08/17/21 acetaminophen 500 mg capsule 500 mg PO Q6H PRN #20 cap 08/20/21 Allergies Allergy/AdvReac Type Severity Reaction Status Date / Time dapagliflozin [From [facility]] Allergy Unknown yeast Verified 06/30/21 11:52 infection metformin Allergy Unknown Diarrhea Verified 06/30/21 11:52 Review of Systems Review of Systems: Constitutional : No Weight loss, No Fever, No Chills, No Night Sweats, No Fatigue, No Malaise ENT/Mouth : No Hearing loss, No Ear Pain, No Nasal Congestion, No Sinus Pain, No Hoarseness, No sore throat, No Rhinorrhea, No Swallowing Difficulty Eyes: No Eye Pain, No Swelling, No Redness, No Foreign Body, No Discharge, No Vision Changes Cardiovascular : No Chest Pain, No SOB, No Dyspnea on Exertion, No Orthopnea, No Edema, No Palpitations Respiratory : No Cough, No Sputum, No Wheezing, No Smoke Exposure, No Dyspnea Gastrointestinal : No Nausea, No Vomiting, No Diarrhea, No Constipation, No abdo pipe Pain, No Hematochezia, No Melena Genitourinary : no irregular bleeding, No Dysuria, No Urinary Frequency, No Hematuria, No Urinary Incontinence, No Urgency, No Flank Pain, No Urinary Flow Changes, No Hesitancy Musculoskeletal : Complaining of lumbar and right-sided hip pain, No Myalgias, No Joint Swelling Skin : No Skin Lesions, No rash Neuro : No Weakness, No Numbness, No Paresthesias, No Loss of Consciousness, no headache, 1 episode of lightheadedness when standing Psych : No Anxiety/Panic, No Depression, No SI/HI/AH/VH, No Social Issues, Heme/Lymph: No Bruising, No Bleeding,No Lymphadenopathy Endocrine : No Polyuria, No Polydipsia, No Temperature Intolerance [facility] Past Medical History Medical History (Updated 08/20/21 @ 11:39 by Elizabeth Coughlin MD) Arthritis Foot ulcer HTN (hypertension) Insulin dependent type 1 diabetes mellitus Pacemaker Surgical History History of cataract surgery History of pacemaker Family History Family History Father No problems noted. Mother No problems noted. Social History Social History Housing: Apartment Alcohol intake: never Patient Tobacco Use Status: Never used Tobacco Advance Directives: Yes Advance Directives on File: Yes Advance Directives Date on File: 06/17/20 Current occupational status: retired and disabled Physical Exam Vital Signs: Vital Signs: Last Vital Signs Temp 98.6 F 08/20/21 10:17 Pulse 105 H 08/20/21 10:53 Resp 14 08/20/21 10:17 BP 197/77 H 08/20/21 10:53 Pulse Ox 96 08/20/21 10:17 BMI result Body Mass Index 48.4 Const: Other: Appearance: Alert. Oriented X3. No acute distress. Eyes: Pupils equal, round and reactive to light. ENT: Pharynx normal. Neck: Normal inspection. Neck supple. No lymph nodes noted. No crepitus CVS: Normal heart rate and rhythm. Pulses normal. Normal S1 and S2 Respiratory: No respiratory distress. Breath sounds normal. No Wheezing. No rales Abdomen: Soft and nontender. No rigidity. No distention. Back: Mild pain to palpation in lumbar area Skin: Skin warm and dry. Normal skin color. Normal skin turgor. Extremities: No lower extremity edema. Mild by right-sided hip pain, patient able to bear weight Neuro: Oriented X 3. No motor deficit. No sensory deficit. Moving all extremities. No slurred speech. CN 2 through 12 grossly intact Psych: calm, cooperative, normal affect Course Course Course Narrative: Patient likely had orthostatic hypotension. Labs, EKG pending. Also imaging of lumbar spine and right hip pending. Orthostatics negative I discussed the labs and imaging with the patient, no acute pathology. Urinalysis negative. Patient's nurse call the family, patient is set up with several services at home, they would like to take patient home. MDM - Fall Lab Data Result diagrams: 08/20/21 08:08 08/20/21 08:08 Labs: Lab Results 08/20/21 08/20/21 08/20/21 Range/Units 08:08 08:08 08:08 WBC 8.5 (4.8-10.8) X10*3/uL RBC 4.31 (4.20-5.50) X10*6/uL Hgb 11.9 L (12.0-16.0) g/dl Hct 36.5 L (37.0-47.0) % MCV 84.7 (80.0-98.0) fL MCH 27.6 (27.0-33.0) pg MCHC 32.6 (31.0-35.0) g/dl RDW 13.1 (11.0-16.0) % Plt Count 172 (160-400) X10*3/uL MPV 10.4 (9.4-12.3) fL Immature Gran % (Auto) 0.5 H (0.0-0.4) % Neut % (Auto) 70.0 (45-73) % Lymph % (Auto) 21.3 (20-40) % [place] % (Auto) 6.2 (2-11) % Eos % (Auto) 1.9 (0-4) % Baso % (Auto) 0.1 (0-2) % Lymph # (Auto) 1.8 (1.2-4.9) X10*3/uL [place] # (Auto) 0.5 (0.1-1.2) X10*3/uL Eos # (Auto) 0.2 (0.0-0.4) X10*3/uL Baso # (Auto) 0.0 (0.0-0.2) X10*3/uL Abs Immat Gran (auto) 0.04 H (0.00-0.03) X10*3/uL Absolute Neuts (auto) 6.0 (2.0-8.3) x10*3/uL Absolute Nucleated RBC 0.000 (0.0-0.012) X10*3/uL Nucleated RBC % (auto) 0.0 (0.0-0.2) /100WBC Sodium 139 (135-145) mmol/L Potassium 4.6 D (3.3-5.1) mmol/L Chloride 101 (96-108) mmol/L Carbon Dioxide 29 (22-29) mmol/L Anion Gap 14 (12-20) BUN 14 (9-16) mg/dL Creatinine 0.77 (0.5-1.4) mg/dL Estim Creat Clear Calc 77.8 Estimated GFR > 60 Random Glucose 192 H (60-115) mg/dL Calcium 9.7 (8.4-10.2) mg/dL Troponin I High Sens 13.8 D (<3.5-17.0) ng/L Urine Color Urine Appearance Urine pH (5.0-8.0) Ur Specific [place] (1.005-1.025) Urine Protein (NEG-TRACE) MG/DL Urine Glucose (UA) (NEG) MG/DL Urine Ketones (NEG) MG/DL Urine Blood (NEG) Urine Nitrite (NEG) Ur Leukocyte Esterase (NEG) Urine RBC (0) /HPF Urine WBC (0-4) /HPF Ur Squamous Epith Cells /LPF Urine Bacteria /LPF 08/20/21 Range/Units 10:25 WBC (4.8-10.8) X10*3/uL RBC (4.20-5.50) X10*6/uL Hgb (12.0-16.0) g/dl Hct (37.0-47.0) % MCV (80.0-98.0) fL MCH (27.0-33.0) pg MCHC (31.0-35.0) g/dl RDW (11.0-16.0) % Plt Count (160-400) X10*3/uL MPV (9.4-12.3) fL Immature Gran % (Auto) (0.0-0.4) % Neut % (Auto) (45-73) % Lymph % (Auto) (20-40) % [place] % (Auto) (2-11) % Eos % (Auto) (0-4) % Baso % (Auto) (0-2) % Lymph # (Auto) (1.2-4.9) X10*3/uL [place] # (Auto) (0.1-1.2) X10*3/uL Eos # (Auto) (0.0-0.4) X10*3/uL Baso # (Auto) (0.0-0.2) X10*3/uL Abs Immat Gran (auto) (0.00-0.03) X10*3/uL Absolute Neuts (auto) (2.0-8.3) x10*3/uL Absolute Nucleated RBC (0.0-0.012) X10*3/uL Nucleated RBC % (auto) (0.0-0.2) /100WBC Sodium (135-145) mmol/L Potassium (3.3-5.1) mmol/L Chloride (96-108) mmol/L Carbon Dioxide (22-29) mmol/L Anion Gap (12-20) BUN (9-16) mg/dL Creatinine (0.5-1.4) mg/dL Estim Creat Clear Calc Estimated GFR Random Glucose (60-115) mg/dL Calcium (8.4-10.2) mg/dL Troponin I High Sens (<3.5-17.0) ng/L Urine Color YELLOW Urine Appearance CLEAR Urine pH 7.5 (5.0-8.0) Ur Specific [place] 1.010 (1.005-1.025) Urine Protein NEG (NEG-TRACE) MG/DL Urine Glucose (UA) NEG (NEG) MG/DL Urine Ketones NEG (NEG) MG/DL Urine Blood 1+ H (NEG) Urine Nitrite NEG (NEG) Ur Leukocyte Esterase NEG (NEG) Urine RBC 5-9 H (0) /HPF Urine WBC 0 (0-4) /HPF Ur Squamous Epith Cells 1+ /LPF Urine Bacteria TRACE /LPF Imaging Data Lumbar x-ray: Radiologist's impression: FINDINGS: There is normal lumbar lordosis and spinal alignment. Mild to moderate multilevel marginal osteophyte formation is seen. The vertebral bodies are intact is no acute fracture. Multiple surgical clips overlie the right upper quadrant. XR/XR lumbar spine 2-3V IMPRESSION: Mild to moderate multilevel marginal osteophyte formation. No overt fracture. Hip and pelvis x-ray: Radiologist's impression: Mild bilateral hip and pubic symphysis degenerative joint changes are seen. There is no acute fracture or dislocation. The soft tissues are unremarkable.? XR/XR hip RT w PEL1V IMPRESSION: Mild degenerative joint changes most consistent with osteoarthritis. No overt fracture. ? ECG Data Attestation: I personally reviewed and interpreted this ECG as follows: (Atrial and ventricular paced rhythm, heart rate 78, no EKG changes since April 2021) Discharge Plan Discharge Clinical Impression: Fall, Lumbar back pain Patient Disposition: Home, Self-Care Instructions: Acute Low Back Pain (ED) Additional Instructions: Please follow-up with your primary care physician tomorrow. If you have any worsening or new symptoms, please return to the emergency room or call 911 Prescriptions: New acetaminophen 500 mg capsule 500 mg PO Q6H PRN (Reason: pain) Qty: 20 0RF No Action (DME) Chair, shower Misc See Rx Instructions .ROUTE .MEDSUPPLY Qty: 1 0RF Rx Instructions: As directed furosemide 40 mg tablet 40 mg PO DAILY 90 Days Qty: 90 2RF pen needle, diabetic [BD Laury 2nd Gen Pen Needle] 32 gauge x 5/32 needle 1 ea miscellaneous TID 30 Days Qty: 100 6RF clotrimazole-betamethasone 1-0.05 % cream 1 appl topical BID 30 Days Qty: 45 3RF colchicine [Colcrys] 0.6 mg tablet 0.6 mg PO DAILY Qty: 90 2RF simvastatin 40 mg tablet 40 mg PO BEDTIME Qty: 90 2RF Desitin Rapid Relief 13 % cream 1 appl topical BID-QID PRN (Reason: skin irritation) 15 Days Qty: 454 0RF atenolol 50 mg tablet 50 mg PO DAILY Qty: 30 3RF losartan 100 mg tablet 100 mg PO DAILY Qty: 90 1RF omeprazole 20 mg capsule,delayed release(DR/EC) 20 mg PO DAILY Qty: 30 3RF Januvia 50 mg tablet 50 mg PO DAILY Qty: 30 3RF Pradaxa 150 mg capsule 150 mg PO BID 90 Days Qty: 180 1RF (DME) blood-glucose meter [FreeStyle Lite Meter] Kit See Rx Instructions .Route Qty: 1 0RF Rx Instructions: As directed lancets [FreeStyle Lancets] 28 gauge misc 28 gauge topical TID Qty: 100 6RF FreeStyle Lite Strips Strip 1 strip miscellaneous QID Qty: 400 3RF flecainide 100 mg tablet 100 mg PO BID Qty: 180 0RF amitriptyline 25 mg tablet 25 mg PO BEDTIME Qty: 30 4RF nitrofurantoin macrocrystal 100 mg capsule 100 mg PO BID 5 Days Qty: 10 0RF Rx Instructions: must administer with a meal/food oxycodone 5 mg tablet 5 mg PO BID 30 Days Qty: 60 0RF gabapentin 400 mg capsule 400 mg PO BID 30 Days Qty: 60 2RF acetaminophen [Tylenol] 325 mg tablet 650 mg PO Q6H PRN (Reason: pain) Qty: 30 0RF latanoprost 0.005 % drops 1 drp ophthalmic (eye) BEDTIME 0RF polyethylene glycol 3350 [Miralax] 17 gram/dose powder 17 g PO BID PRN (Reason: Constipation) 0RF insulin aspart U-100 [Novolog Flexpen U-100 Insulin] 100 unit/mL (3 mL) insulin pen See Protocol sliding scale dose subcut TIDAC 0RF Protocol: Insulin Correction Scale Less than or equal to 110 ---- Give (units): 0 111 to 150 Give (units): 0 151 to 200 Give (units): 2 201 to 250 Give (units): 4 251 to 300 Give (units): 6 301 to 350 Give (units): 8 Greater than 350 Give (units): 10 Call MD if Blood Glucose > : 350 Rx Instructions: Per sliding scale 0-24 units Simbrinza 1-0.2 % drops,suspension 1 drp ophthalmic (eye) BID 0RF (DME) FreeStyle Lite Strips Strip See Rx Instructions strip Not Applicable QID Qty: 10 0RF Rx Instructions: As directed docusate sodium 100 mg capsule 100 mg PO BID PRN (Reason: Constipation) 0RF (DME) blood pressure monitor [Blood Pressure Kit] Kit See Rx Instructions .ROUTE .MEDSUPPLY Qty: 1 0RF Rx Instructions: As directed (DME) humidifiers [Cool Mist Humidifier] Misc See Rx Instructions .ROUTE .MEDSUPPLY Qty: 1 0RF Rx Instructions: As directed alpha lipoic acid 600 mg tablet 600 mg PO DAILY 30 Days Qty: 30 0RF (DME) comp.stocking,thigh,long,x-lrg Misc See Rx Instructions .Route Qty: 2 0RF Rx Instructions: As directed isosorbide mononitrate 30 mg tablet extended release 24 hr 30 mg PO DAILY 90 Days Qty: 90 2RF (DME) walker Misc See Rx Instructions .Route 0RF Rx Instructions: As directed (DME) Ultra-Light Rollator Misc See Rx Instructions .Route Qty: 1 0RF Rx Instructions: As directed albuterol sulfate 90 mcg/actuation HFA aerosol inhaler 2 puff PO Q4-6H PRN (Reason: bronchospasm) 90 Days Qty: 90 1RF alcohol swabs [Alcohol Prep Pads] Pads, Medicated 1 pad topical TID Qty: 100 11RF Tresiba FlexTouch U-100 100 unit/mL (3 mL) insulin pen 65 unit subcut BID 30 Days Qty: 39 6RF
[2021-08-20 08:12] LABS: MANUAL DIFF FLAG NO
[2021-08-20 08:16] LABS: Basophils Percent Auto 0.1 % (0-2); Eosinophils Absolute Auto 0.2 X10*3/uL (0.0-0.4); Eosinophils Percent Auto 1.9 % (0-4); Hematocrit 36.5 % (37.0-47.0); Hemoglobin 11.9 g/dl (12.0-16.0); Imm Gran Abs Auto 0.04 X10*3/uL (0.00-0.03); Imm Gran Pct Auto 0.5 % (0.0-0.4); Lymphocytes Absolute Auto 1.8 X10*3/uL (1.2-4.9); Lymphocytes Percent Auto 21.3 % (20-40); Mean Corpuscular HGB Conc 32.6 g/dl (31.0-35.0); Mean Corpuscular Hemoglobin 27.6 pg (27.0-33.0); Mean Corpuscular Volume 84.7 fL (80.0-98.0); Mean Platelet Volume 10.4 fL (9.4-12.3); Monocytes Absolute Auto 0.5 X10*3/uL (0.1-1.2); Monocytes Percent Auto 6.2 % (2-11); Platelet Count 172 X10*3/uL (160-400); Red Blood Count 4.31 X10*6/uL (4.20-5.50); Red Cell Distribution Width 13.1 % (11.0-16.0); White Blood Count 8.5 X10*3/uL (4.8-10.8)
[2021-08-20 08:34] LABS: Anion Gap 14 (12-20); Blood Urea Nitrogen 14 mg/dL (9-16); Calcium 9.7 mg/dL (8.4-10.2); Carbon Dioxide 29 mmol/L (22-29); Chloride 101 mmol/L (96-108); Creatinine Clr Calc Pharmacy 77.8; Estimated Glomerular Filt Rate > 60; Glucose Random 192 mg/dL (60-115); Potassium 4.6 mmol/L (3.3-5.1); Sodium 139 mmol/L (135-145)
[2021-08-20 08:42] LABS: Troponin-I High Sensitivity 13.8 ng/L (<3.5-17.0)
[2021-08-20 10:17] VITALS: BP 170/90; PULSE 85; RESP 14; TEMP 37; O2SAT 96
[2021-08-20 10:48] VITALS: BP 178/73; PULSE 78
[2021-08-20 10:49] VITALS: BP 185/69; PULSE 93
[2021-08-20 10:52] LABS: Appearance Urine CLEAR; Color Urine YELLOW; Glucose Urine UA NEG (NEG); Leukocyte Esterase Urine NEG (NEG); Nitrite Urine NEG (NEG); PH 7.5 (5.0-8.0); UACC Culture Trigger NO; Urine Blood 1+ (NEG); Urine Ketones NEG (NEG); Urine Protein NEG (NEG-TRACE)
[2021-08-20 10:53] VITALS: BP 197/77; PULSE 105
[2021-08-20 11:06] LABS: Bacteria Urine TRACE /LPF; Squamous Epithelial Cell Urine 1+ /LPF; WBC Urine 0 /HPF (0-4)
== END 2021-08-20 12:15 | disposition home or self-care (01) ==
PROVIDERS: Emergency Provider Emergency Medicine; PCP Physician Assistant
DX: M54.50 Low back pain, unspecified (principal); M25.551 Pain in right hip; Z79.899 Other long term (current) drug therapy
CPT/HCPCS: 36415; 72100; 73502; 80048; 81001; 84484; 85025; 93005; 99284; 99285

== ENCOUNTER 2022-03-21 10:21 | Outpatient (RCR) | payer OTHER, SELFPAY | END 2022-06-14 15:33 | disposition home or self-care (01) | LOC: HO.WCC 10:21 | PROVIDERS: PCP Physician Assistant; Visit Provider Physician Assistant | DX: L97.822 Non-pressure chronic ulcer of other part of left lower leg with fat layer exposed (principal); L97.811 Non-pressure chronic ulcer of other part of right lower leg limited to breakdown of skin; I87.333 Chronic venous hypertension (idiopathic) with ulcer and inflammation of bilateral lower extremity; I87.2 Venous insufficiency (chronic) (peripheral); I10 Essential (primary) hypertension | CPT/HCPCS: 97597; 97598; 99212 ==

== ENCOUNTER 2022-07-10 18:42 | Emergency (ER) | payer OTHER, SELFPAY ==
--- NOTE | 2022-07-10 | ECG_ITS ---
Test Reason : ABD PAIN Blood Pressure : / mmHG Vent. Rate : 080 BPM Atrial Rate : 081 BPM P-R Int : 000 ms QRS Dur : 154 ms QT Int : 404 ms P-R-T Axes : 000 089 056 degrees QTc Int : 465 ms Ventricular-paced rhythm Possible Atrial fibrillation underlying Abnormal ECG When compared with ECG of 20-AUG-2021 07:36, Normal sinus rhythm is no longer Present Referred By: Generic ED Physician Electronically Signed By:OZIEL CAVAZOS MD
--- NOTE | ~2022-07-10 | CT_ITS ---
EXAMINATION: CT ABDOMEN AND PELVIS WITH CONTRAST CLINICAL INFORMATION: Right lower quadrant pain with question of appendicitis COMPARISON: CT abdomen pelvis 04/18/2021 TECHNIQUE: Multidetector volumetric images were obtained from the superior aspect of the liver through the pubic symphysis following administration 85 mL of Omnipaque 350 intravenous contrast. Sagittal and coronal reformatted images were obtained on the technologist's workstation. Oral contrast: No This CT examination was performed using dose optimization techniques as appropriate, variously including the following: *Automated exposure control *Adjustment of mA and/or kV according to patient size (this includes techniques or standardized protocols for targeted exams where dose is matched to indication/reason for exam; i.e. extremities or head) *Use of iterative reconstruction technique DLP: 1668 mGy-cm FINDINGS: LUNG BASES: The heart is enlarged. Bipolar pacemaker leads are seen. No pleural effusions. LIVER, GALLBLADDER, AND BILIARY TREE: The liver is mildly enlarged at 17.6 cm in greatest cephalocaudad dimension. Attenuation is decreased consistent with hepatic steatosis. In size, shape, and attenuation. No focal hepatic lesion or biliary ductal dilatation is present. The gallbladder is unremarkable with no evidence of radiopaque gallstones, gallbladder wall thickening, or obvious pericholecystic inflammatory changes. PANCREAS: Unremarkable. SPLEEN: Spleen is enlarged measuring 13.9 cm in greatest transverse dimension. ADRENAL GLANDS: Unremarkable. KIDNEYS AND URETERS: The kidneys are normal in size, shape, and attenuation. There is a 2.0 cm mass arising from the lower pole of the right kidney which is heterogeneous, not a simple cyst and worrisome for a small solid neoplasm. In 2020, this measured 1.1 cm. No hydronephrosis, hydroureter, or calculi seen. There are bilateral benign Bosniak class I simple renal cysts present which need no follow-up. No perinephric stranding. BLADDER: Unremarkable. GASTROINTESTINAL TRACT: The small and large bowel are unremarkable. The appendix is unremarkable. ABDOMINAL WALL: There is a periumbilical hernia seen containing only fat. LYMPH NODES: Normal. VASCULAR: Unremarkable. PELVIC VISCERA: An anteverted uterus is present with calcifications consistent with fibroids. OSSEOUS STRUCTURES: Degenerative changes are noted throughout the spine most marked at L4-L5 and L5-S1. CT/CT abdomen pelvis w IV con IMPRESSION: 1. A cause for the patient's acute right lower quadrant pain has not been found. The appendix is normal. 2. There is an enlarging 2 cm right lower pole renal mass which cannot be said to be a renal cyst based upon this study. Workup should begin with renal ultrasound. 3. Incidental note made of cardiomegaly, mild hepatosplenomegaly, hepatic steatosis, periumbilical hernia containing only fat, uterine fibroids and degenerative changes in the spine. Fleischner guidelines were followed.
[2022-07-10 18:48] VITALS: BP 139/77; PULSE 80; O2SAT 100
[2022-07-10 18:57] VITALS: BP 139/53; PULSE 80; RESP 18; TEMP 36.6; O2SAT 98; BMI 51.2
--- NOTE | 2022-07-10 19:58 | PC.NURSE ---
Addendum entered by Annette De La Cruz 07/10/22 20:04: Pt assisted to bedpan with two staff assist, urine collected and sent to lab. Healing dry sore noted to bottom, Pt had BLL swelling with wraps, states that's on for my diabetes, im being cured . Original Note: Pt A&Ox3, reports 8/10 intermittent lower ABD pain, started today. Pt reports able to urinate and last BM was today, states she feels constipated. Denies N/V/D. RLQ slighter tender to touch, + bowel sounds x 4.
[2022-07-10 20:02] LABS: Appearance Urine Clear; Color Urine Yellow; Glucose Urine UA Negative (Negative); Leukocyte Esterase Urine Moderate (2+) (Negative); Nitrite Urine Negative (Negative); Specific Gravity - Urine <= 1.005 (1.005-1.025); UMIC TRIGGER UACC YES; Urine Blood Negative (Negative); Urine Ketones Negative (Negative); Urine Protein Negative (Neg-Trace)
--- NOTE | 2022-07-10 20:05 | ED.ABDPAIN ---
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 The pain started approximately 1 hour prior to coming to the emergency department. The pain came on suddenly and is been intermittent. She describes the pain is a sharp severe pain. She states she has had similar pain in the past but cannot tell me when she last had the pain. She denied fever, chills, nausea, vomiting or diarrhea. She denied dysuria. She states she has frequency but she attributes this to drinking lots of water to her diabetes. She also denied fever, chills, rhinorrhea, sore throat, cough. Related Data Home Medications Medication Instructions Recorded Confirmed blood sugar diagnostic #10 ea 03/12/20 06/09/22 brinzolamide 1 %-brimonidine 0.2 % 1 drp ophthalmic (eye) BID 04/24/21 06/09/22 eye drops,suspension (Simbrinza) latanoprost 0.005 % eye drops 1 drp ophthalmic (eye) BEDTIME 04/24/21 06/09/22 polyethylene glycol 3350 17 17 g PO BID PRN Constipation 04/24/21 06/09/22 gram/dose oral powder (Miralax) walker 06/30/21 06/09/22 Previous Rx's Medication Instructions Recorded blood pressure monitor (Blood #1 ea 03/12/20 Pressure Kit) humidifiers (Cool Mist Humidifier) #1 ea 03/12/20 Shower Chair (Chair, shower) #1 ea 09/14/20 comp.stocking,thigh,long,x-lrg #2 ea 12/22/20 alcohol swabs (Alcohol Prep Pads) 1 pad topical TID #100 pad 06/30/21 walker (Ultra-Light Rollator misc) #1 ea 06/30/21 blood-glucose meter (FreeStyle #1 ea 07/12/21 Lite Meter kit) lancets 28 gauge (FreeStyle 28 gauge topical TID #100 ea 07/12/21 Lancets) insulin aspart U-100 100 unit/mL See Protocol subcut TIDAC #15 mL 12/28/21 (3 mL) subcutaneous pen (Novolog FlexPen U-100 Insulin aspart) insulin degludec 100 unit/mL (3 65 unit (0.65 mL) subcut BID 30 12/28/21 mL) subcutaneous pen (Tresiba days #39 mL FlexTouch U-100 insulin) lancets 28 gauge (FreeStyle #100 ea 12/28/21 Lancets) zinc oxide 13 % topical cream 1 appl topical BID-QID PRN skin 01/20/22 (Desitin Rapid Relief) irritation 15 days #454 grams pen needle, diabetic 32 gauge x 1 ea miscellaneous TID 30 days 01/29/22 (BD Laury 2nd Gen Pen Needle) #100 ea bisacodyl 10 mg/30 mL enema (Fleet 10 mg (30 mL) KS DAILY PRN 02/14/22 Bisacodyl) constipation #37 mL bisacodyl 5 mg tablet,delayed 10 mg PO BEDTIME 4 days #8 tabs 02/15/22 release (C-Lax Laxative (bisacodyl)) blood sugar diagnostic (FreeStyle 1 strip miscellaneous QID for 03/07/22 Lite Strips) diabetes mellitus #400 strips lancets 28 gauge (FreeStyle #100 ea 03/23/22 Lancets) lancing device with lancets kit #1 ea 03/24/22 atenolol 50 mg tablet 50 mg PO DAILY #30 tabs 04/15/22 mirtazapine 15 mg tablet (Remeron) 15 mg PO BEDTIME 30 days #30 tabs 05/06/22 losartan 100 mg tablet 100 mg PO DAILY #90 tabs 05/11/22 dabigatran etexilate 150 mg 150 mg PO BID 90 days #180 caps 05/12/22 capsule (Pradaxa) flecainide 100 mg tablet 100 mg PO BID #180 tabs 05/12/22 hydroxyzine HCl 10 mg tablet 10 mg PO BEDTIME PRN insomnia #7 05/26/22 tabs nystatin 100,000 unit/gram topical 1 appl topical TID PRN rash #60 06/09/22 powder grams omeprazole 20 mg capsule,delayed 20 mg PO DAILY #30 caps 06/09/22 release clotrimazole-betamethasone 1 1 appl topical BID 30 days #45 06/21/22 %-0.05 % topical cream grams oxycodone 5 mg tablet 5 mg PO BID 30 days #60 tabs 06/21/22 compr.stocking,knee,long,x-lrg #12 ea 06/22/22 docusate sodium 100 mg capsule 100 mg PO BID PRN Constipation #30 06/23/22 caps acetaminophen 500 mg capsule 500 mg PO Q6H PRN pain #20 caps 07/08/22 albuterol sulfate 90 mcg/actuation 2 puff PO Q4-6H PRN bronchospasm 07/08/22 aerosol inhaler 90 days #90 grams alpha lipoic acid 600 mg tablet 600 mg PO DAILY 30 days #30 tabs 07/08/22 colchicine 0.6 mg tablet (Colcrys) 0.6 mg PO DAILY #90 tabs 07/08/22 furosemide 40 mg tablet 40 mg PO DAILY 90 days #90 tabs 07/08/22 gabapentin 400 mg capsule 400 mg PO BID 30 days #60 caps 07/08/22 isosorbide mononitrate 30 mg 30 mg PO DAILY 90 days #90 tabs 07/08/22 tablet,extended release 24 hr simvastatin 40 mg tablet 40 mg PO BEDTIME #90 tabs 07/08/22 sitagliptin phosphate 50 mg tablet 50 mg PO DAILY 90 days #90 tabs 07/08/22 (Januvia) Allergies Allergy/AdvReac Type Severity Reaction Status Date / Time dapagliflozin [From [facility]] Allergy Unknown yeast Verified 07/10/22 18:57 infection metformin Allergy Unknown Diarrhea Verified 07/10/22 18:57 amitriptyline AdvReac Intermediate Anxiety Verified 07/10/22 18:57 clindamycin AdvReac Mild Itching Verified 07/10/22 18:57 Review of Systems Review of Systems Yes all other systems are reviewed and are negative [facility] Past Medical History [facility] Narrative: Social history: She denies tobacco use. She denies alcohol use. She denies drug use. She states she lives at home with her son. Medical History Arthritis Foot ulcer HTN (hypertension) Insulin dependent type 1 diabetes mellitus Pacemaker Surgical History History of cataract surgery History of pacemaker Family History Family History Father No problems noted. Mother No problems noted. Social History Social History Housing: Apartment Alcohol intake: never Patient Tobacco Use Status: Never used Tobacco Smoked in Last 30 Days: No e-Cigarette/Vaping Use: Never Used Use of substances other than those prescribed or required for medical reasons: No Advance Directives: Yes Advance Directives on File: Yes Advance Directives Date on File: 06/17/20 Current occupational status: retired and disabled Cognitive needs: Yes Hearing needs: No Vision needs: Yes Physical Exam ED Vital Signs: Vital Signs - 24 hr 07/10/22 18:57 Temperature 97.9 F Pulse Rate 80 Respiratory Rate 18 Blood Pressure 139/53 L Pulse Oximetry 98 Oxygen Delivery Method Room Air BMI result Body Mass Index 51.2 Const Other: Awake, alert, female patient, pleasant, cooperative, does not appear to be in distress, answers all questions appropriately [facility] Head: Yes normal to inspection, Yes normocephalic and Yes atraumatic Ears: external ears normal General nose exam: Normal external nose present Face and sinus: Yes normal facial exam Mouth: Normal oral and palatal mucosa present Throat: Yes posterior oropharynx normal Eyes General: appearance normal, both eyes and all related structures Pupils: Equal, round and reactive pupils present Neck Neck: Yes normal visual inspection, Yes no lymphadenopathy, Yes trachea midline and Yes supple Chest Chest palpation & inspection: normal inspection of the chest and normal palpation of entire chest wall Resp Effort & Inspection: normal respiratory effort and able to speak in complete sentences Auscultation: clear to auscultation bilaterally Cardio Rate: regular rate Rhythm: regular rhythm Heart sounds: S1 normal heart sound present, S2 normal heart sound present and no murmurs GI Other: Obese, moderate right lower quadrant tenderness, mild right upper quadrant tenderness, no rebound, no voluntary or involuntary guarding, normoactive bowel sounds Palpation (GI): Tenderness to palpation present (GI) and Guarding due to palpation present (GI) Auscultation: normal bowel sounds General: Yes no CVA tenderness Back/Spine/Pelvis Back: no CVA tenderness Skin General skin exam: no rashes or lesions noted Neuro Cranial nerves: Yes CN's II-XII intact bilaterally and Yes Equal, round and reactive pupils present Cognition (Neuro): normal cognition Motor exam (neuro): 5/5 motor strength present throughout Extrem General: Yes normal to inspection Psych Appearance: grossly normal Speech and movement: Normal speech and movement present Affect: normal affect Attitude: cooperative Medical Decision Making Medical Decision Making [facility] Narrative: 76-year-old female who presents emergency department for evaluation sudden onset of right lower quadrant pain that started 1 hour prior to coming to the emergency department, the pain is been intermittent, and severe. The patient had no other concerning associated symptoms such as fever, chills, nausea, vomiting or diarrhea. She also denied diarrhea past surgical history is positive for cholecystectomy. Vital signs were normal. Examination did reveal obese abdomen with moderate right lower quadrant tenderness and mild right upper quadrant tenderness. I ordered a laboratory evaluation includes CBC, CMP, lipase, urinalysis, EKG. I also ordered a CT scan of the abdomen pelvis without IV contrast. Patient's pain was treated with Toradol 15 mg IV. 0013: Patient's laboratory evaluation was unremarkable. Urinalysis did reveal moderate leukocyte esterase, microscopic revealed 3-5 WBCs 10-20 RBCs but no bacteria. CT scan of the abdomen pelvis did not reveal a clear cause for the patient's pain. The patient did feel better with the above treatment. At this time I do not know the etiology of her pain. Patient did have incidental findings on her CT scan including a 2 cm right lower pole renal mass which will need further evaluation as an outpatient to rule out malignancy. I did discuss this with the patient. Differential Diagnosis Differential diagnosis includes was not limited to abdominal pain of unclear etiology, pancreatitis, appendicitis, colitis, diverticulitis, renal colic, ureteral stone Lab Data [facility] Lab Attestation statement: I reviewed the patient's lab results. My independent interpretation of the patient's laboratory evaluation is as follows: CBC and CMP were unremarkable. Lipase was normal. Urinalysis and microscopic not consistent with urinary tract infection. 07/10/22 21:52 07/10/22 21:52 Labs: Lab Results 07/10/22 07/10/22 07/10/22 Range/Units 19:55 21:52 21:52 WBC 10.9 H (4.8-10.8) X10*3/uL RBC 5.09 (4.20-5.50) X10*6/uL Hgb 13.2 (12.0-16.0) g/dl Hct 41.4 (37.0-47.0) % MCV 81.3 (80.0-98.0) fL MCH 25.9 L (27.0-33.0) pg MCHC 31.9 (31.0-35.0) g/dl RDW 13.8 (11.0-16.0) % Plt Count 220 D (160-400) X10*3/uL MPV 10.4 (9.4-12.3) fL Immature Gran % (Auto) 0.5 H (0.0-0.4) % Neut % (Auto) 70.8 (45-73) % Lymph % (Auto) 20.4 (20-40) % Ritchie % (Auto) 6.5 (2-11) % Eos % (Auto) 1.7 (0-4) % Baso % (Auto) 0.1 (0-2) % Lymph # (Auto) 2.2 (1.2-4.9) X10*3/uL Ritchie # (Auto) 0.7 (0.1-1.2) X10*3/uL Eos # (Auto) 0.2 (0.0-0.4) X10*3/uL Baso # (Auto) 0.0 (0.0-0.2) X10*3/uL Abs Immat Gran (auto) 0.05 H (0.00-0.03) X10*3/uL Absolute Neuts (auto) 7.7 (2.0-8.3) x10*3/uL Absolute Nucleated RBC 0.000 (0.0-0.012) X10*3/uL Nucleated RBC % (auto) 0.0 (0.0-0.2) /100WBC Sodium 140 (135-145) mmol/L Potassium 4.3 (3.3-5.1) mmol/L Chloride 101 (96-108) mmol/L Carbon Dioxide 29 (22-29) mmol/L Anion Gap 14 (12-20) BUN 17 H (9-16) mg/dL Creatinine 0.81 (0.5-1.4) mg/dL Estim Creat Clear Calc 72.6 Estimated GFR > 60 Random Glucose 213 H (60-115) mg/dL Calcium 10.3 H D (8.4-10.2) mg/dL Total Bilirubin 0.5 (0.0-1.0) mg/dL AST 16 (5-31) U/L ALT 14 (0-31) U/L Alkaline Phosphatase 102 (39-117) U/L Total Protein 6.9 (6.5-8.0) g/dL Albumin 4.0 (3.5-5.0) g/dL Lipase 29 (8-78) U/L Urine Color Yellow Urine Appearance Clear Urine pH 7.0 (5.0-9.0) Ur Specific [place] <= 1.005 (1.005-1.025) Urine Protein Negative (Neg-Trace) mg/dL Urine Glucose (UA) Negative (Negative) mg/dL Urine Ketones Negative (Negative) mg/dL Urine Blood Negative (Negative) Urine Nitrite Negative (Negative) Ur Leukocyte Esterase Moderate (2+) H (Negative) Urine RBC 3-5 H (0-2) /HPF Urine WBC 11-20 H (0-5) /HPF Ur Squamous Epith Cells 0-2 (0-2) /HPF Urine Bacteria None Seen (None Seen) Hyaline Casts 0-2 (0-2) /LPF Independent Interpretation I performed an independent interpretation of an: EKG Interpretation: My independent interpretation patient's 12 EKG done at 19:35 hours is as follows atrial sensed ventricular paced rhythm with prolonged AV conduction. Compared to EKG dated 08/20/2021 there is no significant change. Radiology Impression Discussion of test interpretation with radiology: I have reviewed the radiologist's reading. Radiologist Impression: CT/CT abdomen pelvis w IV con IMPRESSION: 1. A cause for the patient's acute right lower quadrant pain has not been found. The appendix is normal. 2. There is an enlarging 2 cm right lower pole renal mass which cannot be said to be a renal cyst based upon this study. Workup should begin with renal ultrasound. 3. Incidental note made of cardiomegaly, mild hepatosplenomegaly, hepatic steatosis, periumbilical hernia containing only fat, uterine fibroids and degenerative changes in the spine. Fleischner guidelines were followed. Dictated By:Karthikeyan Garza MDSigned By:<Electronically signed by Karthikeyan Garza MD in [place]>07/10/22 2337 Medications Administered Discontinued Medications Generic Name Dose Route Start Last Admin Trade Name Rich PRN Reason Stop Dose Admin Iohexol 100 ml 07/10/22 22:55 07/10/22 22:56 Iohexol 350 Mg/Ml 100 Ml Infus..Btl IV 07/10/22 22:56 100 ml ONCE ONE Administration Ketorolac Tromethamine 15 mg 07/10/22 20:05 07/10/22 21:39 Ketorolac Tromethamine 15 Mg/Ml Vial IVPUSH 07/10/22 20:06 15 mg ONCE STA Administration Discharge Plan Discharge Clinical Impression: Abdominal pain, Mass of right kidney Patient Disposition: Home, Self-Care Instructions: Abdominal Pain (ED) Additional Instructions: Your blood work was normal. Your urine revealed no signs of infection. Your CT scan of your abdomen pelvis did not reveal a clear cause of your pain. The CT scan did reveal a 2 cm right lower pole mass which needs to be followed up by your doctor. Your doctor will need to get an ultrasound as an outpatient to determine what is causing the mass. Please show the discharge paper to your doctor, the CT scan reading is below. Take ibuprofen 200 mg pills, 2 pills every 6 hours as needed for pain. Take Tylenol (acetaminophen) 500 mg pills, 2 pills every 4 to 6 hours as needed for pain. Follow-up with your doctor in 2 days. Please return to the emergency department if your symptoms get worse or if you develop any symptoms that are concerning to you. CT abdomen pelvis w IV con IMPRESSION: 1. A cause for the patient's acute right lower quadrant pain has not been found. The appendix is normal. 2. There is an enlarging 2 cm right lower pole renal mass which cannot be said to be a renal cyst based upon this study. Workup should begin with renal ultrasound. 3. Incidental note made of cardiomegaly, mild hepatosplenomegaly, hepatic steatosis, periumbilical hernia containing only fat, uterine fibroids and degenerative changes in the spine. Fleischner guidelines were followed. Dictated By:Karthikeyan Garza MDSigned By:<Electronically signed by Karthikeyan Garza MD in [place]>07/10/22 3217 Prescriptions: No Action (DME) Chair, shower Misc See Rx Instructions .ROUTE .MEDSUPPLY Qty: 1 0RF Rx Instructions: As directed (DME) blood-glucose meter [FreeStyle Lite Meter] Kit See Rx Instructions .Route Qty: 1 0RF Rx Instructions: As directed lancets [FreeStyle Lancets] 28 gauge misc 28 gauge topical TID Qty: 100 6RF Desitin Rapid Relief 13 % cream 1 appl topical BID-QID PRN (Reason: skin irritation) 15 Days Qty: 454 0RF pen needle, diabetic [BD Laury 2nd Gen Pen Needle] 32 gauge x 5/32 needle 1 ea miscellaneous TID 30 Days Qty: 100 6RF Fleet Bisacodyl 10 mg/30 mL enema 10 mg KS DAILY PRN (Reason: constipation) Qty: 37 0RF bisacodyl [C-Lax Laxative (bisacodyl)] 5 mg tablet,delayed release (DR/EC) 10 mg PO BEDTIME 4 Days Qty: 8 0RF FreeStyle Lite Strips Strip 1 strip miscellaneous QID Qty: 400 3RF (DME) lancets [FreeStyle Lancets] 28 gauge misc See Rx Instructions .ROUTE .MEDSUPPLY Qty: 100 3RF Rx Instructions: As directed (DME) lancing device with lancets Kit See Rx Instructions .Route Qty: 1 0RF Rx Instructions: As directed atenolol 50 mg tablet 50 mg PO DAILY Qty: 30 3RF mirtazapine [Remeron] 15 mg tablet 15 mg PO BEDTIME 30 Days Qty: 30 3RF losartan 100 mg tablet 100 mg PO DAILY Qty: 90 1RF Pradaxa 150 mg capsule 150 mg PO BID 90 Days Qty: 180 1RF flecainide 100 mg tablet 100 mg PO BID Qty: 180 1RF hydroxyzine HCl 10 mg tablet 10 mg PO BEDTIME PRN (Reason: insomnia) Qty: 7 0RF clotrimazole-betamethasone 1-0.05 % cream 1 appl topical BID 30 Days Qty: 45 3RF oxycodone 5 mg tablet 5 mg PO BID 30 Days Qty: 60 0RF (DME) compr.stocking,knee,long,x-lrg Misc See Rx Instructions .Route Qty: 12 0RF Rx Instructions: As directed docusate sodium 100 mg capsule 100 mg PO BID PRN (Reason: Constipation) Qty: 30 0RF acetaminophen 500 mg capsule 500 mg PO Q6H PRN (Reason: pain) Qty: 20 0RF albuterol sulfate 90 mcg/actuation HFA aerosol inhaler 2 puff PO Q4-6H PRN (Reason: bronchospasm) 90 Days Qty: 90 1RF alpha lipoic acid 600 mg tablet 600 mg PO DAILY 30 Days Qty: 30 0RF furosemide 40 mg tablet 40 mg PO DAILY 90 Days Qty: 90 2RF colchicine [Colcrys] 0.6 mg tablet 0.6 mg PO DAILY Qty: 90 2RF simvastatin 40 mg tablet 40 mg PO BEDTIME Qty: 90 2RF Januvia 50 mg tablet 50 mg PO DAILY 90 Days Qty: 90 3RF isosorbide mononitrate 30 mg tablet extended release 24 hr 30 mg PO DAILY 90 Days Qty: 90 2RF gabapentin 400 mg capsule 400 mg PO BID 30 Days Qty: 60 3RF latanoprost 0.005 % drops 1 drp ophthalmic (eye) BEDTIME polyethylene glycol 3350 [Miralax] 17 gram/dose powder 17 g PO BID PRN (Reason: Constipation) Simbrinza 1-0.2 % drops,suspension 1 drp ophthalmic (eye) BID (DME) FreeStyle Lite Strips Strip See Rx Instructions Not Applicable QID Qty: 10 Rx Instructions: As directed (DME) blood pressure monitor [Blood Pressure Kit] Kit See Rx Instructions .ROUTE .MEDSUPPLY Qty: 1 0RF Rx Instructions: As directed (DME) humidifiers [Cool Mist Humidifier] Misc See Rx Instructions .ROUTE .MEDSUPPLY Qty: 1 0RF Rx Instructions: As directed (DME) comp.stocking,thigh,long,x-lrg Misc See Rx Instructions .Route Qty: 2 0RF Rx Instructions: As directed (DME) walker Misc See Rx Instructions .Route Rx Instructions: As directed (DME) Ultra-Light Rollator Misc See Rx Instructions .Route Qty: 1 0RF Rx Instructions: As directed alcohol swabs [Alcohol Prep Pads] Pads, Medicated 1 pad topical TID Qty: 100 11RF Tresiba FlexTouch U-100 100 unit/mL (3 mL) insulin pen 65 unit subcut BID 30 Days Qty: 39 6RF insulin aspart U-100 [Novolog FlexPen U-100 Insulin] 100 unit/mL (3 mL) insulin pen See Protocol subcut TIDAC Qty: 15 0RF Protocol: Insulin Correction Scale Less than or equal to 110 ---- Give (units): 0 111 to 150 Give (units): 0 151 to 200 Give (units): 2 201 to 250 Give (units): 4 251 to 300 Give (units): 6 301 to 350 Give (units): 8 Greater than 350 Give (units): 10 Call MD if Blood Glucose > : 350 Rx Instructions: Per sliding scale 0-24 units (DME) lancets [FreeStyle Lancets] 28 gauge misc See Rx Instructions .ROUTE .MEDSUPPLY Qty: 100 3RF Rx Instructions: As directed omeprazole 20 mg capsule,delayed release(DR/EC) 20 mg PO DAILY Qty: 30 3RF nystatin 100,000 unit/gram powder 1 appl topical TID PRN (Reason: rash) Qty: 60 0RF
[2022-07-10 20:28] LABS: Bacteria Urine None Seen (None Seen); Hyaline Casts Urine 0-2 /LPF (0-2); Squamous Epithelial Cell Urine 0-2 /HPF (0-2); UACC Culture Trigger YES
[2022-07-10] MEDS: Ketorolac Tromethamine 15 MG/ML VIAL IVPUSH (21:39)
[2022-07-10 21:56] LABS: MANUAL DIFF FLAG NO
[2022-07-10 21:57] LABS: Basophils Percent Auto 0.1 % (0-2); Eosinophils Absolute Auto 0.2 X10*3/uL (0.0-0.4); Eosinophils Percent Auto 1.7 % (0-4); Hematocrit 41.4 % (37.0-47.0); Hemoglobin 13.2 g/dl (12.0-16.0); Imm Gran Abs Auto 0.05 X10*3/uL (0.00-0.03); Imm Gran Pct Auto 0.5 % (0.0-0.4); Lymphocytes Absolute Auto 2.2 X10*3/uL (1.2-4.9); Lymphocytes Percent Auto 20.4 % (20-40); Mean Corpuscular HGB Conc 31.9 g/dl (31.0-35.0); Mean Corpuscular Hemoglobin 25.9 pg (27.0-33.0); Mean Corpuscular Volume 81.3 fL (80.0-98.0); Mean Platelet Volume 10.4 fL (9.4-12.3); Monocytes Absolute Auto 0.7 X10*3/uL (0.1-1.2); Monocytes Percent Auto 6.5 % (2-11); Neutrophils Absolute Auto 7.7 x10*3/uL (2.0-8.3); Neutrophils Percent Auto 70.8 % (45-73); Platelet Count 220 X10*3/uL (160-400); Red Blood Count 5.09 X10*6/uL (4.20-5.50); Red Cell Distribution Width 13.8 % (11.0-16.0); White Blood Count 10.9 X10*3/uL (4.8-10.8)
[2022-07-10 22:18] LABS: Alanine Aminotransferase 14 U/L (0-31); Alkaline Phosphatase 102 U/L (39-117); Anion Gap 14 (12-20); Aspartate Amino Transferase 16 U/L (5-31); Bilirubin Total 0.5 mg/dL (0.0-1.0); Blood Urea Nitrogen 17 mg/dL (9-16); Calcium 10.3 mg/dL (8.4-10.2); Carbon Dioxide 29 mmol/L (22-29); Chloride 101 mmol/L (96-108); Creatinine Clr Calc Pharmacy 72.6; Estimated Glomerular Filt Rate > 60; Glucose Random 213 mg/dL (60-115); Lipase 29 U/L (8-78); Potassium 4.3 mmol/L (3.3-5.1); Sodium 140 mmol/L (135-145); Total Protein 6.9 g/dL (6.5-8.0)
[2022-07-10] MEDS: iohexoL 350 MG/ML 100 ML INFUS..BTL IV (22:56)
[2022-07-11 00:29] LABS: Glucose, Whole Blood 181 mg/dL (60-115)
[2022-07-11 00:39] VITALS: BP 108/54; PULSE 80; RESP 17; O2SAT 96
== END 2022-07-11 00:53 | disposition home or self-care (01) ==
PROVIDERS: Emergency Provider Emergency Medicine Emergency Medical Services; PCP Physician Assistant
DX: R10.31 Right lower quadrant pain (principal); N28.89 Other specified disorders of kidney and ureter; R94.31 Abnormal electrocardiogram [ECG] [EKG]; Z79.899 Other long term (current) drug therapy
CPT/HCPCS: 36415; 74177; 80053; 81001; 81003; 82947; 83690; 85025; 87086; 93005; 96374; 99285; J1885; Q9967

== ENCOUNTER 2022-08-02 11:30 | Outpatient (REF) | payer OTHER, SELFPAY ==
--- NOTE | ~2022-08-02 | US_ITS ---
EXAMINATION: US RETROPERITONEAL LIMITED (RENAL ONLY) CLINICAL INFORMATION: Enlarging right lower pole renal mass seen on CT scan. COMPARISON: CT scan of the abdomen and pelvis dated 08/07/2022 TECHNIQUE: Multiple 2-D grayscale and color Doppler ultrasound images of the kidneys were obtained. FINDINGS: RIGHT KIDNEY: 10.6 x 5.1 x 5.7 cm (SAG x AP x TRV). A lower pole anechoic focus measures 1.8 cm. Color Doppler showed no abnormal vascular flow. No hydronephrosis or nephrolithiasis. LEFT KIDNEY: 10.9 x 5.8 x 5.3 cm (SAG x AP x TRV). An interpolar anechoic cyst measures 1.6 cm. No hydronephrosis or nephrolithiasis. Color Doppler showed no abnormal vascular flow. US/US renal BI IMPRESSION: Small cysts bilaterally as detailed above. The lower pole anechoic cyst in the right kidney questionably represents the more complex lesion seen on the previous CT scan. Further evaluation with contrast-enhanced MRI is recommended to better characterize this finding.
== END 2022-08-02 11:31 | disposition home or self-care (01) ==
LOC: HO.HMGCX 11:30
PROVIDERS: PCP Physician Assistant; Visit Provider Nurse Practitioner Family
DX: N28.89 Other specified disorders of kidney and ureter (principal)
CPT/HCPCS: 76775

== ENCOUNTER 2022-08-27 11:15 | Emergency (ER) | payer OTHER, SELFPAY ==
--- NOTE | ~2022-08-27 | CT_ITS ---
EXAMINATION: CT HEAD WITHOUT CONTRAST CLINICAL INFORMATION: Left-sided headache. COMPARISON: Most recent CT head dated 06/15/2016. TECHNIQUE: Contiguous axial imaging was performed from the skull base to vertex without intravenous administration of contrast. This CT examination was performed using dose optimization techniques as appropriate, variously including the following: *Automated exposure control *Adjustment of mA and/or kV according to patient size (this includes techniques or standardized protocols for targeted exams where dose is matched to indication/reason for exam; i.e. extremities or head) *Use of iterative reconstruction technique DLP: 655 mGy-cm FINDINGS: No acute intracranial hemorrhage. No mass effect or midline shift. No parenchymal lesion. The anderson-white differentiation is maintained. No extra-axial fluid collection. The ventricles and sulci are unremarkable. The basal cisterns are patent. The calvarium is intact. The visualized paranasal sinuses and mastoid air cells are clear. CT/CT head/brain wo IV con IMPRESSION: No acute intracranial hemorrhage or mass effect.
--- NOTE | 2022-08-27 11:19 | ED_ITS ---
HPI - Headache General Chief Complaint: Headache Stated Complaint: L side MARQUES per EMS Time Seen by Provider: 08/27/22 11:17 Source: patient and EMS Mode of arrival: EMS Limitations: no limitations History of Present Illness HPI Narrative: ?76-year-old female? with a history of diabetes, AFib, hypertension, hyperlipi demia, COPD, coronary artery disease, fibromyalgia, GERD?here with complaints of left-sided headache which began last night. No associated nausea, vomiting, dizziness, fevers, neck pain, vision change, photophobia. No history of migraines. No reports of head trauma or injury. Related Data Home Medications Medication Instructions Recorded Confirmed blood sugar diagnostic #10 ea 03/12/20 07/21/22 brinzolamide 1 %-brimonidine 0.2 % 1 drp ophthalmic (eye) BID 04/24/21 07/21/22 eye drops,suspension (Simbrinza) latanoprost 0.005 % eye drops 1 drp ophthalmic (eye) BEDTIME 04/24/21 07/21/22 polyethylene glycol 3350 17 17 g PO BID PRN Constipation 04/24/21 07/21/22 gram/dose oral powder (Miralax) walker 06/30/21 07/21/22 Previous Rx's Medication Instructions Recorded blood pressure monitor (Blood #1 ea 03/12/20 Pressure Kit) humidifiers (Cool Mist Humidifier) #1 ea 03/12/20 Shower Chair (Chair, shower) #1 ea 09/14/20 comp.stocking,thigh,long,x-lrg #2 ea 12/22/20 alcohol swabs (Alcohol Prep Pads) 1 pad topical TID #100 pad 06/30/21 walker (Ultra-Light Rollator misc) #1 ea 06/30/21 blood-glucose meter (FreeStyle #1 ea 07/12/21 Lite Meter kit) lancets 28 gauge (FreeStyle 28 gauge topical TID #100 ea 07/12/21 Lancets) insulin aspart U-100 100 unit/mL See Protocol subcut TIDAC #15 mL 12/28/21 (3 mL) subcutaneous pen (Novolog FlexPen U-100 Insulin aspart) insulin degludec 100 unit/mL (3 65 unit (0.65 mL) subcut BID 30 12/28/21 mL) subcutaneous pen (Tresiba days #39 mL FlexTouch U-100 insulin) lancets 28 gauge (FreeStyle #100 ea 12/28/21 Lancets) zinc oxide 13 % topical cream 1 appl topical BID-QID PRN skin 01/20/22 (Desitin Rapid Relief) irritation 15 days #454 grams pen needle, diabetic 32 gauge x 1 ea miscellaneous TID 30 days 01/29/22 532 (BD Laury 2nd Gen Pen Needle) #100 ea bisacodyl 10 mg/30 mL enema (Fleet 10 mg (30 mL) [place] DAILY PRN 02/14/22 Bisacodyl) constipation #37 mL bisacodyl 5 mg tablet,delayed 10 mg PO BEDTIME 4 days #8 tabs 02/15/22 release (C-Lax Laxative (bisacodyl)) blood sugar diagnostic (FreeStyle 1 strip miscellaneous QID for 03/07/22 Lite Strips) diabetes mellitus #400 strips lancing device with lancets kit #1 ea 03/24/22 mirtazapine 15 mg tablet (Remeron) 15 mg PO BEDTIME 30 days #30 tabs 05/06/22 losartan 100 mg tablet 100 mg PO DAILY #90 tabs 05/11/22 dabigatran etexilate 150 mg 150 mg PO BID 90 days #180 caps 05/12/22 capsule (Pradaxa) flecainide 100 mg tablet 100 mg PO BID #180 tabs 05/12/22 hydroxyzine HCl 10 mg tablet 10 mg PO BEDTIME PRN insomnia #7 05/26/22 tabs nystatin 100,000 unit/gram topical 1 appl topical TID PRN rash #60 06/09/22 powder grams omeprazole 20 mg capsule,delayed 20 mg PO DAILY #30 caps 06/09/22 release clotrimazole-betamethasone 1 1 appl topical BID 30 days #45 06/21/22 %-0.05 % topical cream grams compr.stocking,knee,long,x-lrg #12 ea 06/22/22 docusate sodium 100 mg capsule 100 mg PO BID PRN Constipation #30 06/23/22 caps acetaminophen 500 mg capsule 500 mg PO Q6H PRN pain #20 caps 07/08/22 albuterol sulfate 90 mcg/actuation 2 puff PO Q4-6H PRN bronchospasm 07/08/22 aerosol inhaler 90 days #90 grams alpha lipoic acid 600 mg tablet 600 mg PO DAILY 30 days #30 tabs 07/08/22 colchicine 0.6 mg tablet (Colcrys) 0.6 mg PO DAILY #90 tabs 07/08/22 furosemide 40 mg tablet 40 mg PO DAILY 90 days #90 tabs 07/08/22 gabapentin 400 mg capsule 400 mg PO BID 30 days #60 caps 07/08/22 isosorbide mononitrate 30 mg 30 mg PO DAILY 90 days #90 tabs 07/08/22 tablet,extended release 24 hr simvastatin 40 mg tablet 40 mg PO BEDTIME #90 tabs 07/08/22 sitagliptin phosphate 50 mg tablet 50 mg PO DAILY 90 days #90 tabs 07/08/22 (Januvia) lancets 28 gauge (FreeStyle #100 ea 07/14/22 Lancets) atenolol 50 mg tablet 50 mg PO DAILY #30 tabs 08/11/22 oxycodone 5 mg tablet 5 mg PO BID 30 days #60 tabs 08/11/22 lilgflqqth-eadgnzhqtjhqj-qupetjhe 1 tab PO Q6H PRN pain #10 tabs 08/27/22 50 mg-325 mg-40 mg tablet Allergies Allergy/AdvReac Type Severity Reaction Status Date / Time dapagliflozin [From [facility]] Allergy Unknown yeast Verified 07/21/22 12:23 infection metformin Allergy Unknown Diarrhea Verified 07/21/22 12:23 amitriptyline AdvReac Intermediate Anxiety Verified 07/21/22 12:23 clindamycin AdvReac Mild Itching Verified 07/21/22 12:23 Review of Systems Review of Systems: Yes all other systems are reviewed and are negative Constitutional: Constitutional: Reports no additional constitutional complaints, Denies body ache(s), Denies chills, Denies fever(s), Reports heada lili(s) and Denies weakness Eyes: Eyes: Reports no additional eye complaints and Denies change in vision ENT: Reports system reviewed and no additional complaints, except as documented, Denies dizziness, Reports headache(s), Denies nasal congestion, Denies nasal discharge and Denies neck pain Cardiovascular: Cardiovascular: Reports no additional cardiovascular complaints, Denies chest pain, Denies leg edema and Denies dyspnea Respiratory: Respiratory: Reports no additional respiratory complaints, Denies cough and Denies dyspnea Gastrointestinal: Gastrointestinal: Reports no additional gastrointestinal complaints, Denies abdominal pain, Denies diarrhea, Denies nausea and Denies vomiting Genitourinary: Genitourinary: Reports no additional female genitourinary complaints and Denies urinary incontinence Musculoskeletal: Musculoskeletal: Reports no additional musculoskeletal complaints, Denies back pain, Denies arthralgias, Denies joint swelling, Denies neck pain, Denies numbness and Denies tingling Integumentary/Breasts: Skin/Breast: Reports system reviewed and no additional complaints, except as docu and Denies rash Neurologic: Reports system reviewed and no additional complaints, except as documented, Denies Abnormal speech present, Denies dizziness, Reports headache(s), Denies numbness, Denies tingling and Denies weakness PMFSH Past Medical History Attestation statement: The following information was validated with the patient. Source: old records reviewed and nursing notes reviewed Medical History Arthritis Foot ulcer HTN (hypertension) Insulin dependent type 1 diabetes mellitus Mass of right kidney Pacemaker Surgical History History of cataract surgery History of pacemaker Family History Family History Father No problems noted. Mother No problems noted. Social History Social History Housing: Apartment Alcohol intake: never Patient Tobacco Use Status: Never used Tobacco e-Cigarette/Vaping Use: Never Used Advance Directives: Yes Advance Directives on File: Yes Advance Directives Date on File: 06/17/20 Current occupational status: retired and disabled Cognitive needs: Yes Hearing needs: No Vision needs: Yes Physical Exam Vital Signs: Vital Signs: Last Vital Signs Temp 98.0 F 08/27/22 11:20 Pulse 81 08/27/22 11:20 Resp 18 08/27/22 11:20 BP 157/60 H 08/27/22 11:20 Pulse Ox 98 08/27/22 11:20 O2 Del Method Room Air 08/27/22 11:20 BMI result Body Mass Index 47.3 Const: General: cooperative, healthy appearing, comfortable and no acute distress Orientation/consciousness: patient oriented x3 Limitations: no limitations HEENT: Head: Yes normal to inspection and No Temporal artery tenderness present Head images: 1. Ears: hearing grossly normal bilaterally and TM's normal bilaterally General nose exam: Normal external nose present Face and sinus: Yes normal facial exam Mouth: Normal oral and palatal mucosa present Throat: Yes posterior oropharynx normal, Yes tonsils normal and Yes uvula midline Eyes: General: appearance normal, both eyes and all related structures Pupils: Equal, round and reactive pupils present Neck: Neck: Yes normal visual inspection, Yes full ROM, Yes no lymphadenopathy and Yes no meningeal signs Chest: Chest palpation & inspection: normal inspection of the chest Resp: Effort & Inspection: normal respiratory effort Auscultation: clear to auscultation bilaterally Cardio: Rate: regular rate Rhythm: regular rhythm Peripheral pulses: Peripheral pulses 2+ throughout GI: Inspection: Yes normal to inspection Palpation (GI): Soft to palpation and nontender Auscultation: normal bowel sounds Back/Spine/Pelvis: Thoracic/Lumbar Spine: thoracic and lumbar spine normal to inspection Skin: General skin exam: no rashes or lesions noted Neuro: General: patient oriented x3, moves all extremities, no meningeal signs, no focal motor deficits and normal sensation to monofilament Cranial nerves: Yes CN's II-XII intact bilaterally, Yes Equal, round and reactive pupils present, Yes Bilaterally intact EOM present, Yes Nystagmus not present, Yes Normal facial strength present and Yes Midline tongue present Cognition ( Neuro): normal cognition Speech: No Abnormal speech present Motor exam (neuro): 5/5 motor strength present throughout Sensory Exam: Normal double simultaneous stimulation for sensation Extrem: General: Yes normal to inspection Course Course Course Narrative: Labs are unremarkable. CT head shows no acute finding. Patient reports that improved receiving Fioricet. Likely migraine. Will send home with p.r.nJoon Fioricet. Reviewed worrisome signs and symptoms of when to return to the emergency room. Comfortable plan for discharge home. Medications Administered Discontinued Medications Generic Name Dose Route Start Last Admin Trade Name Freq PRN Reason Stop Dose Admin Acetaminophen/Butalbital/Caffeine 1 tab 08/27/22 11:34 08/27/22 11:52 Butalb/Acetamin/Caff 50/325/40 Tablet PO 08/27/22 11:35 1 tab ONCE ONE Administration Medical Decision Making Medical Decision Making [facility] Narrative: 76-year-old female with an extensive medical history presents to the ER with complaints of left-sided headache since last evening. Normal neuro with no focal neurological deficit Will check CT head, labs including inflammatory markers, COVID screen Will give oral Fioricet and reassess Differential Diagnosis Differential Diagnoses: The differential diagnosis associated with the presentation includes Pseudotumor cerebral, meningitis, temporal arteritis, migraine, intracranial hemorrhage Lab Data [facility] Lab Attestation statement: I reviewed the patient's lab results. 08/27/22 12:09 08/27/22 12:09 Labs: Lab Results 08/27/22 08/27/22 08/27/22 Range/Units 12:09 12:09 12:09 WBC 9.3 (4.8-10.8) X10*3/uL RBC 4.74 (4.20-5.50) X10*6/uL Hgb 12.4 (12.0-16.0) g/dl Hct 38.6 (37.0-47.0) % MCV 81.4 (80.0-98.0) fL MCH 26.2 L (27.0-33.0) pg MCHC 32.1 (31.0-35.0) g/dl RDW 14.7 (11.0-16.0) % Plt Count 208 (160-400) X10*3/uL MPV 10.2 (9.4-12.3) fL Immature Gran % (Auto) 0.4 (0.0-0.4) % Neut % (Auto) 74.5 H (45-73) % Lymph % (Auto) 16.7 L (20-40) % [place] % (Auto) 6.5 (2-11) % Eos % (Auto) 1.8 (0-4) % Baso % (Auto) 0.1 (0-2) % Lymph # (Auto) 1.6 (1.2-4.9) X10*3/uL [place] # (Auto) 0.6 (0.1-1.2) X10*3/uL Eos # (Auto) 0.2 (0.0-0.4) X10*3/uL Baso # (Auto) 0.0 (0.0-0.2) X10*3/uL Abs Immat Gran (auto) 0.04 H (0.00-0.03) X10*3/uL Absolute Neuts (auto) 6.9 (2.0-8.3) x10*3/uL Absolute Nucleated RBC 0.000 (0.0-0.012) X10*3/uL Nucleated RBC % (auto) 0.0 (0.0-0.2) /100WBC ESR 20 (0-20) MM/HR Sodium 140 (135-145) mmol/L Potassium 4.9 (3.3-5.1) mmol/L Chloride 103 (96-108) mmol/L Carbon Dioxide 27 (22-29) mmol/L Anion Gap 15 (12-20) BUN 13 (9-16) mg/dL Creatinine 0.88 (0.5-1.4) mg/dL Estim Creat Clear Calc 68.6 Estimated GFR > 60 Random Glucose 178 H (60-115) mg/dL Calcium 10.2 (8.4-10.2) mg/dL Total Bilirubin 0.7 (0.0-1.0) mg/dL Direct Bilirubin 0.2 (0.0-0.5) mg/dL AST 16 (5-31) U/L ALT 12 (0-31) U/L Alkaline Phosphatase 104 (39-117) U/L C-Reactive Protein 2.02 H (< or = 0.50) mg/dL Total Protein 6.5 (6.5-8.0) g/dL Albumin 3.9 (3.5-5.0) g/dL COVID-19 (AYANNA) (Negative) COVID-19 Clin Com 08/27/22 Range/Units 12:46 WBC (4.8-10.8) X10*3/uL RBC (4.20-5.50) X10*6/uL Hgb (12.0-16.0) g/dl Hct (37.0-47.0) % MCV (80.0-98.0) fL MCH (27.0-33.0) pg MCHC (31.0-35.0) g/dl RDW (11.0-16.0) % Plt Count (160-400) X10*3/uL MPV (9.4-12.3) fL Immature Gran % (Auto) (0.0-0.4) % Neut % (Auto) (45-73) % Lymph % (Auto) (20-40) % [place] % (Auto) (2-11) % Eos % (Auto) (0-4) % Baso % (Auto) (0-2) % Lymph # (Auto) (1.2-4.9) X10*3/uL [place] # (Auto) (0.1-1.2) X10*3/uL Eos # (Auto) (0.0-0.4) X10*3/uL Baso # (Auto) (0.0-0.2) X10*3/uL Abs Immat Gran (auto) (0.00-0.03) X10*3/uL Absolute Neuts (auto) (2.0-8.3) x10*3/uL Absolute Nucleated RBC (0.0-0.012) X10*3/uL Nucleated RBC % (auto) (0.0-0.2) /100WBC ESR (0-20) MM/HR Sodium (135-145) mmol/L Potassium (3.3-5.1) mmol/L Chloride (96-108) mmol/L Carbon Dioxide (22-29) mmol/L Anion Gap (12-20) BUN (9-16) mg/dL Creatinine (0.5-1.4) mg/dL Estim Creat Clear Calc Estimated GFR Random Glucose (60-115) mg/dL Calcium (8.4-10.2) mg/dL Total Bilirubin (0.0-1.0) mg/dL Direct Bilirubin (0.0-0.5) mg/dL AST (5-31) U/L ALT (0-31) U/L Alkaline Phosphatase (39-117) U/L C-Reactive Protein (< or = 0.50) mg/dL Total Protein (6.5-8.0) g/dL Albumin (3.5-5.0) g/dL COVID-19 (AYANNA) Negative (Negative) COVID-19 Clin Com See Note Independent Interpretation I performed an independent interpretation of an: CT Scan Interpretation: I indepedentely reviewed the CT scan reviewed with radiologist report Radiology Impression Discussion of test interpretation with radiology: I have reviewed the radiologist's reading. Radiologist Impression: [address] [address] [address] Scan Report Signed Patient: Lizzie Lemus MR#: [id number] : 1945 Acct:[id number] Age/Sex: 76 / F ADM Date: 08/27/22 Loc: HO.ED Attending Dr: Ordering Physician: Liudmila Peters NP Date of Service: 08/27/22 Procedure(s): CT head/brain wo IV con Accession Number(s): [id number] cc: Liudmila Peters NP~ EXAMINATION: CT HEAD WITHOUT CONTRAST CLINICAL INFORMATION: Left-sided headache.? COMPARISON: Most recent CT head dated 06/15/2016.? TECHNIQUE: Contiguous axial imaging was performed from the skull base to vertex without intravenous administration of contrast. This CT examination was performed using dose optimization techniques as appropriate, variously including the following: *Automated exposure control *Adjustment of mA and/or kV according to patient size (this includes techniques or standardized protocols for targeted exams where dose is matched to indication/reason for exam; i.e. extremities or head) *Use of iterative reconstruction technique DLP: 655 mGy-cm FINDINGS: No acute intracranial hemorrhage. No mass effect or midline shift. No parenchymal lesion. The anderson-white differentiation is maintained. No extra-axial fluid collection. The ventricles and sulci are unremarkable. The basal cisterns are patent. The calvarium is intact. The visualized paranasal sinuses and mastoid air cells are clear. ? CT/CT head/brain wo IV con IMPRESSION: No acute intracranial hemorrhage or mass effect. Discharge Plan Discharge Clinical Impression: Migraine Patient Disposition: Home, Self-Care Instructions: Migraine Headache (ED) Additional Instructions: Musa an?lisis de franko y la tomograf?a computarizada son normales. [place] el medicamento seg?n lo prescrito seg?n sea necesario para las migra?as. Se ve el seguimiento con musa m?dico de atenci?n primaria. Your blood work and CT scan are normal.? Take the medication as prescribed as needed for migraines.? Follow-up with her primary care doctor is seen Prescriptions: New mgywbfatxq-xaqyqgrslfobu-gzna 50-325-40 mg tablet 1 tab PO Q6H PRN (Reason: pain) Qty: 10 0RF No Action (DME) Chair, shower Misc See Rx Instructions .ROUTE .MEDSUPPLY Qty: 1 0RF Rx Instructions: As directed (DME) blood-glucose meter [FreeStyle Lite Meter] Kit See Rx Instructions .Route Qty: 1 0RF Rx Instructions: As directed lancets [FreeStyle Lancets] 28 gauge misc 28 gauge topical TID Qty: 100 6RF Desitin Rapid Relief 13 % cream 1 appl topical BID-QID PRN (Reason: skin irritation) 15 Days Qty: 454 0RF pen needle, diabetic [BD Laury 2nd Gen Pen Needle] 32 gauge x 5/32 needle 1 ea miscellaneous TID 30 Days Qty: 100 6RF Fleet Bisacodyl 10 mg/30 mL enema 10 mg KS DAILY PRN (Reason: constipation) Qty: 37 0RF bisacodyl [C-Lax Laxative (bisacodyl)] 5 mg tablet,delayed release (DR/EC) 10 mg PO BEDTIME 4 Days Qty: 8 0RF FreeStyle Lite Strips Strip 1 strip miscellaneous QID Qty: 400 3RF (DME) lancing device with lancets Kit See Rx Instructions .Route Qty: 1 0RF Rx Instructions: As directed mirtazapine [Remeron] 15 mg tablet 15 mg PO BEDTIME 30 Days Qty: 30 3RF losartan 100 mg tablet 100 mg PO DAILY Qty: 90 1RF Pradaxa 150 mg capsule 150 mg PO BID 90 Days Qty: 180 1RF flecainide 100 mg tablet 100 mg PO BID Qty: 180 1RF hydroxyzine HCl 10 mg tablet 10 mg PO BEDTIME PRN (Reason: insomnia) Qty: 7 0RF clotrimazole-betamethasone 1-0.05 % cream 1 appl topical BID 30 Days Qty: 45 3RF (DME) compr.stocking,knee,long,x-lrg Misc See Rx Instructions .Route Qty: 12 0RF Rx Instructions: As directed docusate sodium 100 mg capsule 100 mg PO BID PRN (Reason: Constipation) Qty: 30 0RF acetaminophen 500 mg capsule 500 mg PO Q6H PRN (Reason: pain) Qty: 20 0RF albuterol sulfate 90 mcg/actuation HFA aerosol inhaler 2 puff PO Q4-6H PRN (Reason: bronchospasm) 90 Days Qty: 90 1RF alpha lipoic acid 600 mg tablet 600 mg PO DAILY 30 Days Qty: 30 0RF furosemide 40 mg tablet 40 mg PO DAILY 90 Days Qty: 90 2RF colchicine [Colcrys] 0.6 mg tablet 0.6 mg PO DAILY Qty: 90 2RF simvastatin 40 mg tablet 40 mg PO BEDTIME Qty: 90 2RF Januvia 50 mg tablet 50 mg PO DAILY 90 Days Qty: 90 3RF isosorbide mononitrate 30 mg tablet extended release 24 hr 30 mg PO DAILY 90 Days Qty: 90 2RF gabapentin 400 mg capsule 400 mg PO BID 30 Days Qty: 60 3RF (DME) lancets [FreeStyle Lancets] 28 gauge misc See Rx Instructions .ROUTE .MEDSUPPLY Qty: 100 3RF Rx Instructions: As directed oxycodone 5 mg tablet 5 mg PO BID 30 Days Qty: 60 0RF atenolol 50 mg tablet 50 mg PO DAILY Qty: 30 3RF latanoprost 0.005 % drops 1 drp ophthalmic (eye) BEDTIME polyethylene glycol 3350 [Miralax] 17 gram/dose powder 17 g PO BID PRN (Reason: Constipation) Simbrinza 1-0.2 % drops,suspension 1 drp ophthalmic (eye) BID (DME) FreeStyle Lite Strips Strip See Rx Instructions Not Applicable QID Qty: 10 Rx Instructions: As directed (DME) blood pressure monitor [Blood Pressure Kit] Kit See Rx Instructions .ROUTE .MEDSUPPLY Qty: 1 0RF Rx Instructions: As directed (DME) humidifiers [Cool Mist Humidifier] Misc See Rx Instructions .ROUTE .MEDSUPPLY Qty: 1 0RF Rx Instructions: As directed (DME) comp.stocking,thigh,long,x-lrg Misc See Rx Instructions .Route Qty: 2 0RF Rx Instructions: As directed (DME) walker Misc See Rx Instructions .Route Rx Instructions: As directed (DME) Ultra-Light Rollator Misc See Rx Instructions .Route Qty: 1 0RF Rx Instructions: As directed alcohol swabs [Alcohol Prep Pads] Pads, Medicated 1 pad topical TID Qty: 100 11RF Tresiba FlexTouch U-100 100 unit/mL (3 mL) insulin pen 65 unit subcut BID 30 Days Qty: 39 6RF insulin aspart U-100 [Novolog FlexPen U-100 Insulin] 100 unit/mL (3 mL) insulin pen See Protocol subcut TIDAC Qty: 15 0RF Protocol: Insulin Correction Scale Less than or equal to 110 ---- Give (units): 0 111 to 150 Give (units): 0 151 to 200 Give (units): 2 201 to 250 Give (units): 4 251 to 300 Give (units): 6 301 to 350 Give (units): 8 Greater than 350 Give (units): 10 Call MD if Blood Glucose > : 350 Rx Instructions: Per sliding scale 0-24 units (DME) lancets [FreeStyle Lancets] 28 gauge misc See Rx Instructions .ROUTE .MEDSUPPLY Qty: 100 3RF Rx Instructions: As directed omeprazole 20 mg capsule,delayed release(DR/EC) 20 mg PO DAILY Qty: 30 3RF nystatin 100,000 unit/gram powder 1 appl topical TID PRN (Reason: rash) Qty: 60 0RF Referrals: Physician,Unknown J [Primary Care Provider] - Print Language: Azeri
[2022-08-27 11:20] VITALS: BP 150/86; BP 157/60; PULSE 81; PULSE 82; RESP 18; TEMP 36.7; O2SAT 96; O2SAT 98; BMI 47.3
[2022-08-27] MEDS: Butalb/Acetamin/Caff 50/325/40 TABLET 1 TAB PO (11:52)
[2022-08-27 12:13] LABS: MANUAL DIFF FLAG NO
[2022-08-27 12:14] LABS: Basophils Percent Auto 0.1 % (0-2); Eosinophils Absolute Auto 0.2 X10*3/uL (0.0-0.4); Eosinophils Percent Auto 1.8 % (0-4); Hematocrit 38.6 % (37.0-47.0); Hemoglobin 12.4 g/dl (12.0-16.0); Imm Gran Abs Auto 0.04 X10*3/uL (0.00-0.03); Imm Gran Pct Auto 0.4 % (0.0-0.4); Lymphocytes Absolute Auto 1.6 X10*3/uL (1.2-4.9); Lymphocytes Percent Auto 16.7 % (20-40); Mean Corpuscular HGB Conc 32.1 g/dl (31.0-35.0); Mean Corpuscular Hemoglobin 26.2 pg (27.0-33.0); Mean Corpuscular Volume 81.4 fL (80.0-98.0); Mean Platelet Volume 10.2 fL (9.4-12.3); Monocytes Absolute Auto 0.6 X10*3/uL (0.1-1.2); Monocytes Percent Auto 6.5 % (2-11); Neutrophils Absolute Auto 6.9 x10*3/uL (2.0-8.3); Neutrophils Percent Auto 74.5 % (45-73); Platelet Count 208 X10*3/uL (160-400); Red Blood Count 4.74 X10*6/uL (4.20-5.50); Red Cell Distribution Width 14.7 % (11.0-16.0); White Blood Count 9.3 X10*3/uL (4.8-10.8)
[2022-08-27 12:32] LABS: Alanine Aminotransferase 12 U/L (0-31); Albumin Level 3.9 g/dL (3.5-5.0); Alkaline Phosphatase 104 U/L (39-117); Anion Gap 15 (12-20); Aspartate Amino Transferase 16 U/L (5-31); Bilirubin Direct 0.2 mg/dL (0.0-0.5); Bilirubin Total 0.7 mg/dL (0.0-1.0); Blood Urea Nitrogen 13 mg/dL (9-16); C Reactive Protein 2.02 mg/dL (< or = 0.50); Calcium 10.2 mg/dL (8.4-10.2); Carbon Dioxide 27 mmol/L (22-29); Chloride 103 mmol/L (96-108); Creatinine Clr Calc Pharmacy 68.6; Estimated Glomerular Filt Rate > 60; Glucose Random 178 mg/dL (60-115); Potassium 4.9 mmol/L (3.3-5.1); Sodium 140 mmol/L (135-145); Total Protein 6.5 g/dL (6.5-8.0)
[2022-08-27 12:56] LABS: Erythrocyte Sedimentation Rate 20 MM/HR (0-20)
[2022-08-27 13:09] LABS: COVID-19 Test Negative (Negative); IDNOW Serial# 08D9AD1C
== END 2022-08-27 15:00 | disposition home or self-care (01) ==
PROVIDERS: Nurse Practitioner Family; Emergency Provider Emergency Medicine
DX: G43.909 Migraine, unspecified, not intractable, without status migrainosus (principal); Z20.822 Contact with and (suspected) exposure to COVID-19; E10.8 Type 1 diabetes mellitus with unspecified complications; I10 Essential (primary) hypertension; E78.5 Hyperlipidemia, unspecified; I48.91 Unspecified atrial fibrillation; Z95.0 Presence of cardiac pacemaker; Z79.899 Other long term (current) drug therapy; Z79.4 Long term (current) use of insulin
CPT/HCPCS: 36415; 70450; 80048; 80076; 85025; 85652; 86140; 87635; 99284

== ENCOUNTER 2022-09-10 09:40 | Inpatient (IN) | payer OTHER, SELFPAY ==
--- NOTE | ~2022-09-10 | CT_ITS ---
EXAMINATION: CT chest w IV con. CLINICAL INFORMATION: Reason for Exam Cough, SOB COMPARISON: 2013 TECHNIQUE: Multidetector volumetric CT imaging of the chest was done. Axial MIP volume rendering provided. Sagittal and coronal reformatted images were obtained. This CT examination was performed using dose optimization techniques as appropriate, variously including the following: *Automated exposure control *Adjustment of mA and/or kV according to patient size (this includes techniques or standardized protocols for targeted exams where dose is matched to indication/reason for exam; i.e. extremities or head) *Use of iterative reconstruction technique CONTRAST: Noncontrasted study. DLP: 730 mGy-cm FINDINGS: Motion artifact. PLUM PACKER: LINES/TUBES: Cardiac device embedded in the left chest wall with its lead in the right atrium and right ventricle properly positioned. LUNGS: Lung parenchyma: Overall diminished lung volume. No radiographic evidence of acute infiltrates. There is a prominence of the pulmonary vasculature. Lung nodules/masses: There are no significant lung nodules. AIRWAYS: Trachea and bronchi are normal. PLEURA: No pleural effusion or pneumothorax. MEDIASTINUM AND PRANEETH: No mediastinal, hilar or axillary lymphadenopathy. No mediastinal mass. VESSELS: HEART AND PERICARDIUM: Thoracic aorta is normal in size. The heart is enlarged. No pericardial effusion. There are coronary calcifications. Pulmonary arteries are normal in size. LOWER NECK, AXILLA: The visualized thyroid gland is unremarkable. No axillary mass or adenopathy. VISUALIZED ABDOMEN: Unremarkable CHEST WALL AND BONES: No chest wall mass. Spondylosis of dorsal spine. Bridging osteophyte posterior left ninth and 10th rib. CT/CT chest w IV con IMPRESSION: * Diminished lung volume. * Pulmonary vascular congestion. No significant edema or pleural effusion. * Cardiomegaly. * Coronary calcification. Other noncritical findings as above.
--- NOTE | ~2022-09-10 | XR_ITS ---
EXAMINATION: XR chest 1V CLINICAL INFORMATION: Reason for Exam cough COMPARISON: 04/24/2021 TECHNIQUE: XR chest 1V Tubes and lines: None Lungs and pleura: Mild pulmonary vascular congestion, diminished lung volume, no dense focal consolidation, increased attenuation at lung bases likely breast tissue overlap. Heart and mediastinum: Heart and mediastinum are widened exaggerated by AP technique. Cardiac device superimposed on the left hemithorax.. Bones/soft tissue: Skeletal structures included are normal for patient's age. XR/XR chest 1V IMPRESSION: * Mild vascular congestion. * Diminished lung volume. * No dense focal consolidation pneumonia. * Widened mediastinum exaggerated by AP technique.
[2022-09-10 09:42] VITALS: BP 147/80; PULSE 80; RESP 16; TEMP 36.8; O2SAT 98; BMI 36.3
--- NOTE | 2022-09-10 10:24 | ED.URI ---
HPI - URI/Sore Throat General Chief Complaint: Upper Respiratory Symptoms Stated Complaint: back and chest pain Time Seen by Provider: 09/10/22 10:04 Source: patient Mode of arrival: ambulatory Limitations: other (poor historian ) History of Present Illness HPI Narrative: 76-year-old female history of obesity, generalized anxiety, GERD, diabetes, atrial fibrillation ( flecanide), hypertension, hyperlipidemia presenting to the emergency department with complaints of cough, fatigue, malaise, myalgias, subjective fevers and chills, sore throat since yesterday w/ a/c CP and SOB. CP substernal w/o radiation Patient reports that is bothering her most is a productive cough. She is also reporting diffuse body aches and pains, tells me her back is aching all throughout. Denies any back trauma. Denies urinary/bowel incontinence/retention, no saddle paresthesias. Denies, nausea, vomiting, abdominal pain, constipation, diarrhea, headache, vision changes, dizziness or weakness. I did clarify with patient she did not get a pill stuck in her throat she says she took a liquid medication that made her throat feel weird yesterday night Related Data Home Medications Medication Instructions Recorded Confirmed blood sugar diagnostic #10 ea 03/12/20 07/21/22 brinzolamide 1 %-brimonidine 0.2 % 1 drp ophthalmic (eye) BID 04/24/21 07/21/22 eye drops,suspension (Simbrinza) latanoprost 0.005 % eye drops 1 drp ophthalmic (eye) BEDTIME 04/24/21 07/21/22 polyethylene glycol 3350 17 17 g PO BID PRN Constipation 04/24/21 07/21/22 gram/dose oral powder (Miralax) walker 06/30/21 07/21/22 Previous Rx's Medication Instructions Recorded blood pressure monitor (Blood #1 ea 03/12/20 Pressure Kit) humidifiers (Cool Mist Humidifier) #1 ea 03/12/20 Shower Chair (Chair, shower) #1 ea 09/14/20 comp.stocking,thigh,long,x-lrg #2 ea 12/22/20 alcohol swabs (Alcohol Prep Pads) 1 pad topical TID #100 pad 06/30/21 walker (Ultra-Light Rollator misc) #1 ea 06/30/21 blood-glucose meter (FreeStyle #1 ea 07/12/21 Lite Meter kit) lancets 28 gauge (FreeStyle 28 gauge topical TID #100 ea 07/12/21 Lancets) insulin aspart U-100 100 unit/mL See Protocol subcut TIDAC #15 mL 12/28/21 (3 mL) subcutaneous pen (Novolog FlexPen U-100 Insulin aspart) insulin degludec 100 unit/mL (3 65 unit (0.65 mL) subcut BID 30 12/28/21 mL) subcutaneous pen (Tresiba days #39 mL FlexTouch U-100 insulin) lancets 28 gauge (FreeStyle #100 ea 12/28/21 Lancets) zinc oxide 13 % topical cream 1 appl topical BID-QID PRN skin 01/20/22 (Desitin Rapid Relief) irritation 15 days #454 grams pen needle, diabetic 32 gauge x 1 ea miscellaneous TID 30 days 01/29/22 (BD Laury 2nd Gen Pen Needle) #100 ea bisacodyl 10 mg/30 mL enema (Fleet 10 mg (30 mL) AR DAILY PRN 02/14/22 Bisacodyl) constipation #37 mL bisacodyl 5 mg tablet,delayed 10 mg PO BEDTIME 4 days #8 tabs 02/15/22 release (C-Lax Laxative (bisacodyl)) blood sugar diagnostic (FreeStyle 1 strip miscellaneous QID for 03/07/22 Lite Strips) diabetes mellitus #400 strips lancing device with lancets kit #1 ea 03/24/22 mirtazapine 15 mg tablet (Remeron) 15 mg PO BEDTIME 30 days #30 tabs 05/06/22 losartan 100 mg tablet 100 mg PO DAILY #90 tabs 05/11/22 dabigatran etexilate 150 mg 150 mg PO BID 90 days #180 caps 05/12/22 capsule (Pradaxa) flecainide 100 mg tablet 100 mg PO BID #180 tabs 05/12/22 hydroxyzine HCl 10 mg tablet 10 mg PO BEDTIME PRN insomnia #7 05/26/22 tabs nystatin 100,000 unit/gram topical 1 appl topical TID PRN rash #60 06/09/22 powder grams omeprazole 20 mg capsule,delayed 20 mg PO DAILY #30 caps 06/09/22 release clotrimazole-betamethasone 1 1 appl topical BID 30 days #45 06/21/22 %-0.05 % topical cream grams compr.stocking,knee,long,x-lrg #12 ea 06/22/22 docusate sodium 100 mg capsule 100 mg PO BID PRN Constipation #30 06/23/22 caps acetaminophen 500 mg capsule 500 mg PO Q6H PRN pain #20 caps 07/08/22 albuterol sulfate 90 mcg/actuation 2 puff PO Q4-6H PRN bronchospasm 07/08/22 aerosol inhaler 90 days #90 grams alpha lipoic acid 600 mg tablet 600 mg PO DAILY 30 days #30 tabs 07/08/22 colchicine 0.6 mg tablet (Colcrys) 0.6 mg PO DAILY #90 tabs 07/08/22 furosemide 40 mg tablet 40 mg PO DAILY 90 days #90 tabs 07/08/22 gabapentin 400 mg capsule 400 mg PO BID 30 days #60 caps 07/08/22 isosorbide mononitrate 30 mg 30 mg PO DAILY 90 days #90 tabs 07/08/22 tablet,extended release 24 hr simvastatin 40 mg tablet 40 mg PO BEDTIME #90 tabs 07/08/22 sitagliptin phosphate 50 mg tablet 50 mg PO DAILY 90 days #90 tabs 07/08/22 (Januvia) lancets 28 gauge (FreeStyle #100 ea 07/14/22 Lancets) atenolol 50 mg tablet 50 mg PO DAILY #30 tabs 08/11/22 oxycodone 5 mg tablet 5 mg PO BID 30 days #60 tabs 08/11/22 hfmqxcivib-sfrhdualujiqp-nrwztphe 1 tab PO Q6H PRN pain #10 tabs 08/27/22 50 mg-325 mg-40 mg tablet Allergies Allergy/AdvReac Type Severity Reaction Status Date / Time dapagliflozin [From [facility]] Allergy Unknown yeast Verified 07/21/22 12:23 infection metformin Allergy Unknown Diarrhea Verified 07/21/22 12:23 amitriptyline AdvReac Intermediate Anxiety Verified 07/21/22 12:23 clindamycin AdvReac Mild Itching Verified 07/21/22 12:23 Review of Systems Review of Systems: Constitutional : No Weight loss, + Fever, + Chills, + Fatigue, + Malaise ENT/Mouth : No sore throat, No Rhinorrhea Eyes: No Eye Pain, No Swelling, No Redness Cardiovascular : + Chest Pain, + SOB, + Dyspnea on Exertion, No Orthopnea, No Edema, No Palpitations Respiratory : + Cough, + Sputum, No Wheezing Gastrointestinal : No Nausea, No Vomiting, No Diarrhea, No Constipation, No abdominal Pain, No Hematochezia, No Melena Genitourinary : No Dysuria, No Urinary Frequency, No Hematuria, Musculoskeletal : No joint pain, No Myalgias, No Joint Swelling Skin : No Skin Lesions, No rash Neuro : No Weakness, No Numbness, No Dizziness, No Headache Psych : No Anxiety/Panic, No Depression All other systems reviewed and are negative Yes all other systems are reviewed and are negative [facility] Past Medical History Attestation statement: The following information was validated with the patient. Source: old records reviewed and nursing notes reviewed Medical History Arthritis Foot ulcer HTN (hypertension) Insulin dependent type 1 diabetes mellitus Mass of right kidney Pacemaker Surgical History History of cataract surgery History of pacemaker Family History Family History Father No problems noted. Mother No problems noted. Social History Social History Housing: Apartment Alcohol intake: never Patient Tobacco Use Status: Never used Tobacco e-Cigarette/Vaping Use: Never Used Advance Directives: Yes Advance Directives on File: Yes Advance Directives Date on File: 06/17/20 Current occupational status: retired and disabled Cognitive needs: Yes Hearing needs: No Vision needs: Yes Physical Exam Vital Signs: Vital Signs: Last Vital Signs Temp 98.2 F 09/10/22 09:42 Pulse 80 09/10/22 13:27 Resp 15 09/10/22 13:27 BP 165/58 H 09/10/22 13:27 Pulse Ox 95 09/10/22 13:27 O2 Del Method Room Air 09/10/22 13:27 BMI result Body Mass Index 36.3 vss Appearance: Alert.? Oriented X3.? No acute distress.? Head: Normocephalic, atraumatic, no step-offs or deformities Eyes: Pupils equal, round and reactive to light.? ENT: Pharynx normal.? Neck: Normal inspection.? Neck supple.? CVS: Normal heart rate and rhythm.? Pulses normal.? Respiratory: No respiratory distress.? Breath sounds diminished b/l.? Abdomen: Soft and nontender.? Skin: Skin warm and dry.? Normal skin color.? Normal skin turgor.? Extremities: No lower extremity edema.? No calf ttp. 5/5 strength to bilateral upper and lower extremities Neuro: Oriented X 3.? No motor deficit.? No sensory deficit. CN 2-12 intact Course Course Course Narrative: I did have a conversation with patient's son who tells me family members are sick at home however mom reports chest pain and shortness of breath that started today. Son also poor historian. Unclear of patient's medical history and meds Reevaluation(s) Reevaluation #1: CBC appears to be within normal limits. Patient's chemistry with critically low magnesium of 1.1 will give IV Mag at this time, no other electrolyte abnormalities requiring acute intervention . Patient's troponin 62.4 deviating from her baseline, EKG with new left bundle branch block, will obtain another troponin and run this case by Cardiology Patient's BNP 142, still some suspicion for possible CHF. Time: 12:36 Reevaluation #2: I did discuss this case with cardiology who recommends discontinuation of flecainide for the time being and hospital admission as she will require further investigation and treatment. Cardiology to follow in the hospital. Will admit for unstable angina and URI. Time: 13:56 Reevaluation #3: At this time patient to be admitted to the hospital team Time: 14:00 Additional Reevaluation(s): Second troponin 52.2, patient feeling better. Patient's daughter at bedside. Patient's daughter reports patient has been under lot of stress and has been crying a lot lately. Hospitalist aware of new troponin, not meeting delta criteria unlikely ACS. Likely demand ischemia Medications Administered Discontinued Medications Generic Name Dose Route Start Last Admin Trade Name Freq PRN Reason Stop Dose Admin Magnesium Sulfate 2 gm in 50 mls @ 25 mls/hr 09/10/22 12:34 09/10/22 13:17 Magnesium Sulfate/H2o IV 09/10/22 14:33 25 mls/hr ONCE ONE Administration Iohexol 85 ml 09/10/22 13:16 09/10/22 13:17 Iohexol 350 Mg/Ml 100 Ml Infus..Btl IV 09/10/22 13:17 85 ml ONCE ONE Administration Morphine Sulfate 4 mg 09/10/22 12:44 09/10/22 13:17 Morphine Sulfate 4 Mg/Ml Cartridge IVPUSH 09/10/22 12:45 4 mg ONCE ONE Administration Protocol Medical Decision Making Medical Decision Making [facility] Narrative: 1031 76-year-old female presents with URI symptoms x2 days with associated chest pain and shortness of breath today. Denies sick contacts. Physical exambreathsounds diminished b/l . Is saturating well on room air. Appears comfortable. This is likely a viral illness vs pNA vs CHF . Patient denies chest pain unlikely ACS. Shortness of breath likely secondary to viral illness I do not suspect, PE, pneumothorax. Plan at this time x-ray viral testing. Differential Diagnosis Differential Diagnoses: The differential diagnosis associated with the presentation includes This is likely a viral illness vs PNA VS CHF . Patient denies chest pain unlikely ACS. Shortness of breath likely secondary to viral illness I do not suspect , PE, pneumothorax. Admission/Observation Consideration of admission/observation: Escalation of care including admission/observation considered unlikley Consult Healthcare Provider Management of the patient was discussed with: Hospitalist and [employer] (cardiology ) Lab Data [facility] Lab Attestation statement: I reviewed the patient's lab results. 09/10/22 11:29 09/10/22 11:29 Labs: Lab Results 09/10/22 09/10/22 09/10/22 Range/Units 10:26 10:26 11:28 WBC (4.8-10.8) X10*3/uL RBC (4.20-5.50) X10*6/uL Hgb (12.0-16.0) g/dl Hct (37.0-47.0) % MCV (80.0-98.0) fL MCH (27.0-33.0) pg MCHC (31.0-35.0) g/dl RDW (11.0-16.0) % Plt Count (160-400) X10*3/uL MPV (9.4-12.3) fL Immature Gran % (Auto) (0.0-0.4) % Neut % (Auto) (45-73) % Lymph % (Auto) (20-40) % [place] % (Auto) (2-11) % Eos % (Auto) (0-4) % Baso % (Auto) (0-2) % Lymph # (Auto) (1.2-4.9) X10*3/uL [place] # (Auto) (0.1-1.2) X10*3/uL Eos # (Auto) (0.0-0.4) X10*3/uL Baso # (Auto) (0.0-0.2) X10*3/uL Abs Immat Gran (auto) (0.00-0.03) X10*3/uL Absolute Neuts (auto) (2.0-8.3) x10*3/uL Absolute Nucleated RBC (0.0-0.012) X10*3/uL Nucleated RBC % (auto) (0.0-0.2) /100WBC D-Dimer High Sensitivty NG/ML Sodium (135-145) mmol/L Potassium (3.3-5.1) mmol/L Chloride (96-108) mmol/L Carbon Dioxide (22-29) mmol/L Anion Gap (12-20) BUN (9-16) mg/dL Creatinine (0.5-1.4) mg/dL Estim Creat Clear Calc Estimated GFR Random Glucose (60-115) mg/dL Lactic Acid 1.9 (0.5-2.0) mmol/L Calcium (8.4-10.2) mg/dL Magnesium (1.6-2.6) mg/dL Total Bilirubin (0.0-1.0) mg/dL AST (5-31) U/L ALT (0-31) U/L Alkaline Phosphatase (39-117) U/L Troponin I High Sens (<3.5-17.0) ng/L B-Natriuretic Peptide (<100) pg/mL Total Protein (6.5-8.0) g/dL Albumin (3.5-5.0) g/dL COVID-19 (AYANNA) Negative (Negative) COVID-19 Clin Com See Note Influenza Type A (AR) Negative (Negative) Influenza A & B Note See Note 09/10/22 09/10/22 09/10/22 Range/Units 11:29 11:29 11:29 WBC 10.8 (4.8-10.8) X10*3/uL RBC 4.57 (4.20-5.50) X10*6/uL Hgb 12.2 (12.0-16.0) g/dl Hct 37.8 (37.0-47.0) % MCV 82.7 (80.0-98.0) fL MCH 26.7 L (27.0-33.0) pg MCHC 32.3 (31.0-35.0) g/dl RDW 15.1 (11.0-16.0) % Plt Count 236 (160-400) X10*3/uL MPV 10.8 (9.4-12.3) fL Immature Gran % (Auto) 0.5 H (0.0-0.4) % Neut % (Auto) 77.1 H (45-73) % Lymph % (Auto) 15.2 L (20-40) % [place] % (Auto) 6.4 (2-11) % Eos % (Auto) 0.7 (0-4) % Baso % (Auto) 0.1 (0-2) % Lymph # (Auto) 1.7 (1.2-4.9) X10*3/uL [place] # (Auto) 0.7 (0.1-1.2) X10*3/uL Eos # (Auto) 0.1 (0.0-0.4) X10*3/uL Baso # (Auto) 0.0 (0.0-0.2) X10*3/uL Abs Immat Gran (auto) 0.05 H (0.00-0.03) X10*3/uL Absolute Neuts (auto) 8.4 H (2.0-8.3) x10*3/uL Absolute Nucleated RBC 0.000 (0.0-0.012) X10*3/uL Nucleated RBC % (auto) 0.0 (0.0-0.2) /100WBC D-Dimer High Sensitivty < 150 NG/ML Sodium 142 (135-145) mmol/L Potassium 3.9 D (3.3-5.1) mmol/L Chloride 101 (96-108) mmol/L Carbon Dioxide 29 (22-29) mmol/L Anion Gap 16 (12-20) BUN 10 (9-16) mg/dL Creatinine 0.81 (0.5-1.4) mg/dL Estim Creat Clear Calc 71.2 Estimated GFR > 60 Random Glucose 194 H (60-115) mg/dL Lactic Acid (0.5-2.0) mmol/L Calcium 9.5 D (8.4-10.2) mg/dL Magnesium 1.1 L* (1.6-2.6) mg/dL Total Bilirubin 0.6 (0.0-1.0) mg/dL AST 16 (5-31) U/L ALT 12 (0-31) U/L Alkaline Phosphatase 106 (39-117) U/L Troponin I High Sens (<3.5-17.0) ng/L B-Natriuretic Peptide (<100) pg/mL Total Protein 6.7 (6.5-8.0) g/dL Albumin 3.8 (3.5-5.0) g/dL COVID-19 (AYANNA) (Negative) COVID-19 Clin Com Influenza Type A (AR) (Negative) Influenza A & B Note 09/10/22 09/10/22 09/10/22 Range/Units 11:29 11:29 14:27 WBC (4.8-10.8) X10*3/uL RBC (4.20-5.50) X10*6/uL Hgb (12.0-16.0) g/dl Hct (37.0-47.0) % MCV (80.0-98.0) fL MCH (27.0-33.0) pg MCHC (31.0-35.0) g/dl RDW (11.0-16.0) % Plt Count (160-400) X10*3/uL MPV (9.4-12.3) fL Immature Gran % (Auto) (0.0-0.4) % Neut % (Auto) (45-73) % Lymph % (Auto) (20-40) % [place] % (Auto) (2-11) % Eos % (Auto) (0-4) % Baso % (Auto) (0-2) % Lymph # (Auto) (1.2-4.9) X10*3/uL [place] # (Auto) (0.1-1.2) X10*3/uL Eos # (Auto) (0.0-0.4) X10*3/uL Baso # (Auto) (0.0-0.2) X10*3/uL Abs Immat Gran (auto) (0.00-0.03) X10*3/uL Absolute Neuts (auto) (2.0-8.3) x10*3/uL Absolute Nucleated RBC (0.0-0.012) X10*3/uL Nucleated RBC % (auto) (0.0-0.2) /100WBC D-Dimer High Sensitivty NG/ML Sodium (135-145) mmol/L Potassium (3.3-5.1) mmol/L Chloride (96-108) mmol/L Carbon Dioxide (22-29) mmol/L Anion Gap (12-20) BUN (9-16) mg/dL Creatinine (0.5-1.4) mg/dL Estim Creat Clear Calc Estimated GFR Random Glucose (60-115) mg/dL Lactic Acid (0.5-2.0) mmol/L Calcium (8.4-10.2) mg/dL Magnesium (1.6-2.6) mg/dL Total Bilirubin (0.0-1.0) mg/dL AST (5-31) U/L ALT (0-31) U/L Alkaline Phosphatase (39-117) U/L Troponin I High Sens 62.4 H* 52.2 H* (<3.5-17.0) ng/L B-Natriuretic Peptide 142 H (<100) pg/mL Total Protein (6.5-8.0) g/dL Albumin (3.5-5.0) g/dL COVID-19 (AYANNA) (Negative) COVID-19 Clin Com Influenza Type A (AR) (Negative) Influenza A & B Note Independent Interpretation I performed an independent interpretation of an: EKG (NEW LBB) and Plain X-Ray (XR/XR chest 1V IMPRESSION: * Mild vascular congestion. * Diminished lung volume. * No dense focal consolidation pneumonia. * Widened mediastinum exaggerated by AP technique. ) Radiology Impression Discussion of test interpretation with radiology: I have reviewed the radiologist's reading. External Record Review External record reviewed: Inpatient record, Office record, Outpatient record, Prior outpatient labs, Prior outpatient radiology, Primary care record and Outside ED record Chronic Conditions Patient?s care impacted by: Diabetes, Hypertension and Other (Afib ) Core Measures AMI core measures followed: Yes Measure exclusions: not indicated Critical Care Time Critical Care Time Critical Care Time: Yes Total Critical Care Time: 35 Attestation: I attest to this time spent taking care of the patient, obtaining history, physical, reviewing labs, imaging, speaking to my attending, speaking to specialist. Discharge Plan Discharge Clinical Impression: URI (upper respiratory infection), Unstable angina Patient Disposition: Admitted As Inpatient
[2022-09-10 10:50] LABS: COVID-19 Test Negative (Negative); IDNOW Serial# 9DB6401D
--- NOTE | 2022-09-10 10:50 | ECG_ITS ---
Test Reason : UPPER RESP Blood Pressure : / mmHG Vent. Rate : 080 BPM Atrial Rate : 098 BPM P-R Int : 000 ms QRS Dur : 172 ms QT Int : 460 ms P-R-T Axes : 000 084 -81 degrees QTc Int : 530 ms Atrial sensed V paced rhythm Left bundle branch block Abnormal ECG When compared with ECG of 10-JUL-2022 19:35, No significant changes seen Referred By: Keith Green Electronically Signed By:Homer Oglesby
[2022-09-10 10:51] LABS: IDNOW Serial# 55D5AD1C; Influenza A Negative (Negative)
--- NOTE | 2022-09-10 11:00 | MHC.EDTECH ---
EKG completed and signed by
[2022-09-10 11:38] LABS: MANUAL DIFF FLAG NO
[2022-09-10 11:40] LABS: Basophils Percent Auto 0.1 % (0-2); Eosinophils Absolute Auto 0.1 X10*3/uL (0.0-0.4); Eosinophils Percent Auto 0.7 % (0-4); Hematocrit 37.8 % (37.0-47.0); Hemoglobin 12.2 g/dl (12.0-16.0); Imm Gran Abs Auto 0.05 X10*3/uL (0.00-0.03); Imm Gran Pct Auto 0.5 % (0.0-0.4); Lymphocytes Absolute Auto 1.7 X10*3/uL (1.2-4.9); Lymphocytes Percent Auto 15.2 % (20-40); Mean Corpuscular HGB Conc 32.3 g/dl (31.0-35.0); Mean Corpuscular Hemoglobin 26.7 pg (27.0-33.0); Mean Corpuscular Volume 82.7 fL (80.0-98.0); Mean Platelet Volume 10.8 fL (9.4-12.3); Monocytes Absolute Auto 0.7 X10*3/uL (0.1-1.2); Monocytes Percent Auto 6.4 % (2-11); Neutrophils Absolute Auto 8.4 x10*3/uL (2.0-8.3); Neutrophils Percent Auto 77.1 % (45-73); Platelet Count 236 X10*3/uL (160-400); Red Blood Count 4.57 X10*6/uL (4.20-5.50); Red Cell Distribution Width 15.1 % (11.0-16.0); White Blood Count 10.8 X10*3/uL (4.8-10.8)
[2022-09-10 11:54] LABS: D Dimer High Sensitivity < 150 NG/ML
[2022-09-10 11:57] LABS: Lactic Acid 1.9 mmol/L (0.5-2.0)
[2022-09-10 12:07] LABS: B Type Natriuretic Peptide 142 pg/mL (<100)
[2022-09-10 12:34] LABS: Troponin-I High Sensitivity 62.4 ng/L (<3.5-17.0)
[2022-09-10 12:35] LABS: Alanine Aminotransferase 12 U/L (0-31); Albumin Level 3.8 g/dL (3.5-5.0); Alkaline Phosphatase 106 U/L (39-117); Anion Gap 16 (12-20); Aspartate Amino Transferase 16 U/L (5-31); Bilirubin Total 0.6 mg/dL (0.0-1.0); Blood Urea Nitrogen 10 mg/dL (9-16); Calcium 9.5 mg/dL (8.4-10.2); Carbon Dioxide 29 mmol/L (22-29); Chloride 101 mmol/L (96-108); Creatinine Clr Calc Pharmacy 71.2; Estimated Glomerular Filt Rate > 60; Glucose Random 194 mg/dL (60-115); Magnesium 1.1 mg/dL (1.6-2.6); Potassium 3.9 mmol/L (3.3-5.1); Sodium 142 mmol/L (135-145); Total Protein 6.7 g/dL (6.5-8.0)
[2022-09-10] MEDS: Magnesium Sulfate/H2O 2 GM/50 ML PIGGYBACK IV ×2 (13:17→18:32)
[2022-09-10] MEDS: Morphine Sulfate 4 MG/ML CARTRIDGE IVPUSH (13:17)
[2022-09-10] MEDS: iohexoL 350 MG/ML 100 ML INFUS..BTL 85 ML IV (13:17)
[2022-09-10 13:27] VITALS: BP 165/58; PULSE 80; RESP 15; O2SAT 95
--- NOTE | 2022-09-10 14:29 | MHC.EDTECH ---
Jose Elias drawn and sent to lab
[2022-09-10 15:19] LABS: Troponin-I High Sensitivity 52.2 ng/L (<3.5-17.0)
--- NOTE | 2022-09-10 16:00 | P.HPHOSP_ITS ---
History of Present Illness Date of Service: 09/10/22 Attending physician on admission: Carlene Anderson Chief Complaint: cough, chest pain 76 year old female with history type 2 diabetes, renal mass, COPD, CHF unspecified EF, hypertension, GERD, coronary artery disease, fibromyalgia, diabetic polyneuropathy, chronic low back pain, hyperlipidemia, paroxysmal atrial fibrillation anticoagulated with Pradaxa on flecainide, bipolar disorder, and balance disorder ambulates with walker at baseline among others presented to the ED for evaluation of chest pain. She states last night she had an episode of coughing with shortness of breath and sore throat and was noted to have choked on her Robitussin. However the symptoms have resolved. This morning she had an episode of chest pain located over the left breast that was present at rest and did not worsen with exertion. There was no radiation. The pain lasts for several seconds and dissipated. She has had similar episodes of chest pain in the past. There is no associated shortness of breath, diaphoresis, nausea, epigastric pain. She denies any fevers, chills, abdominal pain, nausea, vomiting, diarrhea, constipation, headaches, lightheadedness, palpitations, retrosternal chest pressure. Denies any sick contacts. Patient denies any chest pain at this time. On arrival, patient afebrile, vitals stable. No leukocytosis. Renal function and electrolyte levels normal except for hypo magnesiumia of 1.1 which was repleted in the ED with 2 g of IV magnesium sulfate. Initial troponin 62.4, repeat 52.2. BNP 142. EKG showing NSR, rate 80 with new left bundle branch block, no WINSTON or ST depressions. CXR showing mild vascular congestion but no acute cardiopulmonary abnormality. Chest CT with diminished lungs and pulmonary vascular congestion but no significant edema or pleural effusion. Showing cardiomegaly and coronary calcifications. She is negative for COVID-19 and influenza. In the ED, magnesium repleted with 2 g and also given 4 mg morphine. Review of Systems 2 Review of Systems: General: No fevers, malaise, unintentional weight loss HEENT: +sore throat. No blurred vision, diplopia. No nasal congestion, rhinorrhea, sinus pain, ear pain Cardiovascular: +chest pain. No palpitations, or leg edema Respiratory: +sob, +cough. No wheezing GI: No abdominal pain, nausea, vomiting, diarrhea, constipation, melena, hematochezia : No dysuria, hematuria, increased urinary frequency, decreased urinary output MSK: No myalgia, back pain Neuro: No headaches, weakness, paresthesias Skin: No rashes or lesions [facility] Medical History (Updated 09/10/22 @ 16:38 by MACK Galvez) Afib Arthritis COPD (chronic obstructive pulmonary disease) Coronary artery disease Decompensated heart failure Fibromyalgia Foot ulcer NADEGE (generalized anxiety disorder) GERD (gastroesophageal reflux disease) HTN (hypertension) Insulin dependent type 1 diabetes mellitus Mass of right kidney Pacemaker Family History Father No problems noted. Mother No problems noted. 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, [employer]) Alcohol intake: never Patient Tobacco Use Status: Never used Tobacco Smoked in Last 30 Days: No e-Cigarette/Vaping Use: Never Used Use of substances other than those prescribed or required for medical reasons: No Currently Displaying Signs/Symptoms of Drug Intoxication Withdrawal: No Have you been hit, kicked, punched, or otherwise hurt by someone within the past year? If so, by whom?: No Do you feel safe in your current relationship?: No Current Relationship Is there a partner from a previous relationship who is making you feel unsafe now?: No Are you made to feel afraid or neglected: No [facility] Healthcare Practices: Mormonism Advance Directives: Yes Advance Directives on File: Yes Advance Directives Date on File: 06/17/20 Do you have thoughts of harming others: None Do you have a plan to hurt others: No Plan Recently lost weight without trying: No Nutrition Risks: Difficulty swallowing Patient : No : No Poor oral hygiene: No service: No Current occupational status: retired and disabled Cognitive needs: Yes Hearing needs: No Vision needs: Yes Meds Allergies Allergy/AdvReac Type Severity Reaction Status Date / Time dapagliflozin [From [facility]] Allergy Unknown yeast Verified 07/21/22 12:23 infection metformin Allergy Unknown Diarrhea Verified 07/21/22 12:23 amitriptyline AdvReac Intermediate Anxiety Verified 07/21/22 12:23 clindamycin AdvReac Mild Itching Verified 07/21/22 12:23 Active Medications: Current Medications Acetaminophen (Acetaminophen 325 Mg Tablet) 650 mg PO Q6H PRN PRN Reason: Pain, Mild (Pain Scale 1-3) Docusate Sodium (Docusate Sodium 100 Mg Capsule) 100 mg PO DAILY PRN PRN Reason: Constipation Guaifenesin (Guaifenesin 200 Mg/10 Ml 10 Ml Liquid) 10 ml PO Q4H PRN PRN Reason: Cough Ondansetron HCl (Ondansetron Hcl 4 Mg/2 Ml Vial) 4 mg IVPUSH Q8H PRN PRN Reason: Nausea and Vomiting Pharmacy Consult (Consult Rx Perform Med Rec) 1 each MISCELLANE ONCE PRN PRN Reason: Consult order Home Medications Medication Instructions Recorded Confirmed Last Taken Type blood sugar diagnostic #10 ea 03/12/20 07/21/22 Unknown History brinzolamide 1 %-brimonidine 0.2 % 1 drp ophthalmic (eye) BID 04/24/21 09/10/22 Unknown History eye drops,suspension (Simbrinza) latanoprost 0.005 % eye drops 1 drp ophthalmic (eye) BEDTIME 04/24/21 09/10/22 Unknown History polyethylene glycol 3350 17 17 g PO BID PRN Constipation 04/24/21 09/10/22 Unknown History gram/dose oral powder (Miralax) walker 06/30/21 07/21/22 Unknown History docusate sodium 100 mg capsule 100 mg PO BID 09/10/22 09/10/22 Unknown History gabapentin 400 mg capsule 400 mg PO BID PRN Pain 09/10/22 09/10/22 Unknown History insulin aspart U-100 100 unit/mL See Protocol subcut TIDAC PRN 09/10/22 09/10/22 Unknown History (3 mL) subcutaneous pen (Novolog Hyperglycemia FlexPen U-100 Insulin aspart) oxycodone 5 mg tablet 5 mg PO BID PRN Pain 09/10/22 09/10/22 Unknown History Physical Exam Vital Signs and Narrative: Vital Signs: Last Vital Signs Temp 98.2 F 09/10/22 09:42 Pulse 80 09/10/22 13:27 Resp 15 09/10/22 13:27 BP 165/58 H 09/10/22 13:27 Pulse Ox 95 09/10/22 13:27 O2 Del Method Room Air 09/10/22 13:27 BMI result Body Mass Index 36.3 Constitutional - Awake and Alert, No apparent distress Eyes - PERRLA, EOMI Cardiovascular - S1S2, RRR, 1+ edema RLE Chest- nontender to palpation Respiratory - Normal lung expansion, Normal respiratory effort, No respiratory distress, CTA bilaterally Gastrointestinal - NT / ND; +BS; No rebound or guarding Extremities - no calf tenderness bilaterally, no swelling Musculoskeletal - Normal inspection, normal ROM Skin - Warm/Dry. 1cm shallow ulceration medial RLE without purulent drainage. Chronic venous stasis dermatitis BLE Neurological - Alert & oriented x3, CN II-XII in tact, 5/5 strength BUE and BLE Psychological - Appropriate affect Results Labs 09/10/22 11:29 09/10/22 11:29 Labs: Laboratory Results - last 24 hr 09/10/22 09/10/22 09/10/22 10:26 10:26 11:28 MCV MCH MCHC RDW Plt Count MPV Immature Gran % (Auto) Neut % (Auto) Lymph % (Auto) [place] % (Auto) Eos % (Auto) Baso % (Auto) Lymph # (Auto) [place] # (Auto) Eos # (Auto) Baso # (Auto) Abs Immat Gran (auto) Absolute Neuts (auto) Absolute Nucleated RBC Nucleated RBC % (auto) D-Dimer High Sensitivty Anion Gap Estim Creat Clear Calc Estimated GFR Random Glucose Lactic Acid 1.9 Calcium Magnesium Total Bilirubin AST ALT Alkaline Phosphatase Troponin I High Sens B-Natriuretic Peptide Total Protein Albumin COVID-19 (AYANNA) Negative COVID-19 Clin Com See Note Influenza Type A (AR) Negative Influenza A & B Note See Note 09/10/22 09/10/22 09/10/22 11:29 11:29 11:29 MCV 82.7 MCH 26.7 L MCHC 32.3 RDW 15.1 Plt Count 236 MPV 10.8 Immature Gran % (Auto) 0.5 H Neut % (Auto) 77.1 H Lymph % (Auto) 15.2 L [place] % (Auto) 6.4 Eos % (Auto) 0.7 Baso % (Auto) 0.1 Lymph # (Auto) 1.7 [place] # (Auto) 0.7 Eos # (Auto) 0.1 Baso # (Auto) 0.0 Abs Immat Gran (auto) 0.05 H Absolute Neuts (auto) 8.4 H Absolute Nucleated RBC 0.000 Nucleated RBC % (auto) 0.0 D-Dimer High Sensitivty < 150 Anion Gap 16 Estim Creat Clear Calc 71.2 Estimated GFR > 60 Random Glucose 194 H Lactic Acid Calcium 9.5 D Magnesium 1.1 L* Total Bilirubin 0.6 AST 16 ALT 12 Alkaline Phosphatase 106 Troponin I High Sens B-Natriuretic Peptide Total Protein 6.7 Albumin 3.8 COVID-19 (AYANNA) COVID-19 Clin Com Influenza Type A (AR) Influenza A & B Note 09/10/22 09/10/22 09/10/22 11:29 11:29 14:27 MCV MCH MCHC RDW Plt Count MPV Immature Gran % (Auto) Neut % (Auto) Lymph % (Auto) [place] % (Auto) Eos % (Auto) Baso % (Auto) Lymph # (Auto) [place] # (Auto) Eos # (Auto) Baso # (Auto) Abs Immat Gran (auto) Absolute Neuts (auto) Absolute Nucleated RBC Nucleated RBC % (auto) D-Dimer High Sensitivty Anion Gap Estim Creat Clear Calc Estimated GFR Random Glucose Lactic Acid Calcium Magnesium Total Bilirubin AST ALT Alkaline Phosphatase Troponin I High Sens 62.4 H* 52.2 H* B-Natriuretic Peptide 142 H Total Protein Albumin COVID-19 (AYANNA) COVID-19 Clin Com Influenza Type A (AR) Influenza A & B Note Imaging Radiologist's Impressions: Impressions Chest X-Ray 09/10/22 10:50 IMPRESSION: * Mild vascular congestion. * Diminished lung volume. * No dense focal consolidation pneumonia. * Widened mediastinum exaggerated by AP technique. Chest CT 09/10/22 13:21 IMPRESSION: * Diminished lung volume. * Pulmonary vascular congestion. No significant edema or pleural effusion. * Cardiomegaly. * Coronary calcification. Other noncritical findings as above. Assessment and Plan (1) Hypomagnesemia: Status: Acute (2) Chest pain: Status: Acute Plan 76 year old female with history type 2 diabetes, renal mass, COPD, CHF unsp ecified EF, hypertension, GERD, coronary artery disease, fibromyalgia, diabetic polyneuropathy, chronic low back pain, hyperlipidemia, paroxysmal atrial fibrillation anticoagulated with Pradaxa on flecainide, bipolar disorder, and balance disorder ambulates with walker at baseline among others to be observed for hypomagnesemia and chest pain. #Hypomagnesemia -Mag 1.1, ?r/t ppi use -Repleted in ED -Recheck mag @5, replete as needed #Chest pain -history CAD with coronary calcifications noted on chest CT -Seems atypical, but cannot rule out angina -EKG with new LBBB. Discussed with cardiology, recommending admission to medicine. On pradaxa -Trops elevated, but flat -cardiac diet -Currently asymptomatic -Monitor on telemetry #Type 2 diabetes with hyperglycemia -dose adjusted basal insulin -humalog on sliding scale -diabetic diet -POC glucose # hypertension -reasonably controlled continue home meds # paroxysmal atrial fibrillation -pacemaker in place -continue Pradaxa -hold flecainide per cardiology, continue atenolol # CHF, unspecified ejection fraction -no acute exacerbation -continue p.o. diuretics # COPD -no acute exacerbation, continue home inhalers # CAD/HLD -continue statin, isosorbide, beta-tara, Pradaxa # diabetic polyneuropathy -continue gabapentin DVT prophylaxis-Pradaxa Full code Time Spent With Patient Time: Total time managing care of this patient today ____ minutes. Quality Stroke Does the patient have a stroke diagnosis?: No VTE Prior VTE?: No VTE Risk Level:: Medical - moderate - high VTE Device Contraindication: Treatment Not Indicated VTE Drug Contraindication: N/A - Med Ordered
--- NOTE | 2022-09-10 16:09 | PHA.MEDREC ---
Pharmacy Consult ? Medication Reconciliation Pharmacy has completed the medication reconciliation. Patient is poor historian, spoke with her daughter. Her daughter was able to confirm the medications however there are some that have not been refilled since last fall such as Simbrinza and the Novolog. Her daughter says she uses the novolog as needed. The patient takes hydroxyzine at bedtime as needed but last refill was end of May for 7 tablets. The daughter and doctor in the room at the time of med [facility] said they were discussing stopping the patients flecainide with the animal trainer.
[2022-09-10 16:36] VITALS: O2SAT 96
[2022-09-10] MEDS: LORazepam 1 MG TABLET PO (16:39)
[2022-09-10 17:10] VITALS: BP 136/61; PULSE 80; RESP 17; TEMP 36.2; O2SAT 96
[2022-09-10 17:19] LABS: Glucose, Whole Blood 175 mg/dL (60-115)
[2022-09-10] MEDS: Insulin Lispro 100 UNIT/ML 3 ML VIAL SUBCUT ×2 (17:20→21:43)
[2022-09-10 18:14] LABS: Magnesium 1.4 mg/dL (1.6-2.6)
[2022-09-10 20:00] VITALS: BP 166/69; PULSE 78; RESP 17; TEMP 36; O2SAT 92
[2022-09-10] MEDS: Gabapentin 400 MG CAPSULE PO (20:27)
[2022-09-10] MEDS: Docusate Sodium 100 MG CAPSULE PO (20:28)
[2022-09-10] MEDS: Insulin Glargine,Hum.rec.anlog 100 UNIT/ML 10 ML VIAL 35 UNIT SUBCUT (20:28)
[2022-09-10] MEDS: Dabigatran Etexilate Mesylate 150 MG CAPSULE PO (20:28)
[2022-09-10] MEDS: Atorvastatin Calcium 20 MG TABLET PO (20:28)
[2022-09-10 21:12] LABS: Glucose, Whole Blood 209 mg/dL (60-115)
[2022-09-10] MEDS: Nystatin/Triamcinolone Cream 15 GM TUBE 1 APPL TOPICAL (21:42)
[2022-09-10] MEDS: Acetaminophen 325 MG TABLET 650 MG PO (21:42)
[2022-09-10] MEDS: Nystatin Powder 15 GM BOTTLE 1 APPL TOPICAL (21:42)
[2022-09-10] MEDS: Latanoprost 0.005 % Ophth Sol 2.5 ML DROPS 1 DROP EYE-BOTH (23:10)
[2022-09-11 03:53] VITALS: BP 146/66; PULSE 79; RESP 17; TEMP 36.6; O2SAT 100
[2022-09-11 06:41] LABS: MANUAL DIFF FLAG NO
[2022-09-11 06:55] LABS: Basophils Percent Auto 0.2 % (0-2); Eosinophils Absolute Auto 0.3 X10*3/uL (0.0-0.4); Eosinophils Percent Auto 2.9 % (0-4); Hematocrit 39.2 % (37.0-47.0); Hemoglobin 12.3 g/dl (12.0-16.0); Imm Gran Abs Auto 0.06 X10*3/uL (0.00-0.03); Imm Gran Pct Auto 0.6 % (0.0-0.4); Lymphocytes Absolute Auto 2.6 X10*3/uL (1.2-4.9); Lymphocytes Percent Auto 26.2 % (20-40); Mean Corpuscular HGB Conc 31.4 g/dl (31.0-35.0); Mean Corpuscular Hemoglobin 26.4 pg (27.0-33.0); Mean Corpuscular Volume 84.1 fL (80.0-98.0); Mean Platelet Volume 10.7 fL (9.4-12.3); Monocytes Absolute Auto 0.9 X10*3/uL (0.1-1.2); Monocytes Percent Auto 8.5 % (2-11); Neutrophils Absolute Auto 6.2 x10*3/uL (2.0-8.3); Neutrophils Percent Auto 61.6 % (45-73); Platelet Count 225 X10*3/uL (160-400); Red Blood Count 4.66 X10*6/uL (4.20-5.50); Red Cell Distribution Width 15.2 % (11.0-16.0)
[2022-09-11 07:11] LABS: Anion Gap 12 (12-20); Blood Urea Nitrogen 10 mg/dL (9-16); Calcium 9.3 mg/dL (8.4-10.2); Carbon Dioxide 32 mmol/L (22-29); Chloride 104 mmol/L (96-108); Creatinine Clr Calc Pharmacy 81.3; Estimated Glomerular Filt Rate > 60; Glucose Random 103 mg/dL (60-115); Potassium 3.5 mmol/L (3.3-5.1); Sodium 144 mmol/L (135-145)
[2022-09-11 07:46] VITALS: BP 137/94; PULSE 80; RESP 18; TEMP 36.3; O2SAT 100
[2022-09-11 07:51] LABS: Glucose, Whole Blood 113 mg/dL (60-115)
[2022-09-11 08:05] LABS: Magnesium 1.7 mg/dL (1.6-2.6)
[2022-09-11] MEDS: atenoloL 50 MG TABLET PO (09:08)
[2022-09-11] MEDS: Omeprazole 20 MG CAPSULE.DR PO (09:08)
[2022-09-11] MEDS: Furosemide 40 MG TABLET PO (09:08)
[2022-09-11] MEDS: Isosorbide Mononitrate 30 MG TAB.ER.24H PO (09:08)
[2022-09-11] MEDS: Gabapentin 400 MG CAPSULE PO ×2 (09:08→20:39)
[2022-09-11] MEDS: Colchicine 0.6 MG TABLET PO (09:08)
[2022-09-11] MEDS: Docusate Sodium 100 MG CAPSULE PO ×2 (09:08→20:39)
[2022-09-11] MEDS: Losartan Potassium 50 MG TABLET 100 MG PO (09:09)
[2022-09-11] MEDS: Dabigatran Etexilate Mesylate 150 MG CAPSULE PO ×2 (09:09→20:39)
[2022-09-11] MEDS: Nystatin/Triamcinolone Cream 15 GM TUBE 1 APPL TOPICAL ×2 (09:10→21:18)
[2022-09-11] MEDS: Insulin Glargine,Hum.rec.anlog 100 UNIT/ML 10 ML VIAL 35 UNIT SUBCUT ×2 (09:10→21:16)
--- NOTE | 2022-09-11 10:37 | MHC.CM.PN ---
NUNN NOTICE 09/11 IN CHART PER CONVERSATION WITH DAUGHTER, FE [phone], PATIENT LIVES WITH HER SON. 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 SHE IS AWARE THAT [facility] CURRENTLY DOES NOT OFFER EVERY DAY BUT THAT A REQUEST CAN BE MADE FOR AN ASSESSMENT OF SERVICE INCREASE. PLAN WILL BE HOME WITH RESUMPTION OF CARE
[2022-09-11] MEDS: Brimonidine Tartrate 0.2% Oph 5 ML BOTTLE 1 DROP EYE-BOTH ×2 (10:43→20:40)
[2022-09-11] MEDS: Dorzolamide HCl 2 % Ophth Sol 10 ML DRPBTL 1 DROP EYE-BOTH ×2 (10:43→20:40)
[2022-09-11 11:35] LABS: Glucose, Whole Blood 178 mg/dL (60-115)
[2022-09-11] MEDS: Insulin Lispro 100 UNIT/ML 3 ML VIAL SUBCUT ×3 (12:15→21:16)
--- NOTE | 2022-09-11 14:28 | HO.PM.IMPN ---
Subjective Subjective Date of Service: 09/20/22 Interval History: Being followed for chest pain and shortness of breath, history obtained via motor vehicle parts interpreter patient is feeling well denies shortness of breath, no chest pain, no headache, no dizziness, no acute events overnight, tolerating diet with no nausea, no vomiting, no abdominal pain no diarrhea. Review of Systems Review of Systems: Yes all other systems are reviewed and are negative Physical Exam Vital Signs: Vital Signs: Last Vital Signs Temp 97.4 F 09/11/22 07:46 Pulse 80 09/11/22 07:46 Resp 18 09/11/22 07:46 BP 137/94 H 09/11/22 07:46 Pulse Ox 100 09/11/22 07:46 O2 Del Method Nasal Cannula 09/11/22 07:46 O2 Flow Rate 2 09/11/22 07:46 BMI result Body Mass Index 36.3 Const: Other: General alert oriented x3, resting comfortably in no acute distress. Neck supple no JVD. CVS regular rate rhythm, Respiratory lungs clear to auscultation, no respiratory distress, no wheeze, no rhonchi. Gastrointestinal abdomen soft, non tender, bowel sounds audible, no guarding , no rigidity. Extremities mild ankle edema. Neuro nonfocal ,moving all 4 extremity speech clear. Skin shallow ulcer right lower leg medially, chronic venous stasis dermatitis Psych appropriate affect Objective Data Active Medications Acetaminophen (Acetaminophen 325 Mg Tablet) 650 mg PO Q6H PRN PRN Reason: Pain, Mild (Pain Scale 1-3) Last Admin: 09/10/22 21:42 Dose: 650 mg Documented By: MARIANNE Albuterol Sulfate (Albuterol Sulfate 90 Mcg 8 Gm Inhaler) 2 puff INHALE RQ4H PRN PRN Reason: bronchospasm Atenolol (Atenolol 50 Mg Tablet) 50 mg PO DAILY [facility]; Protocol Last Admin: 09/11/22 09:08 Dose: 50 mg Documented By: BREEZY Atorvastatin Calcium (Atorvastatin Calcium 20 Mg Tablet) 20 mg PO BEDTIME [facility] Last Admin: 09/10/22 20:28 Dose: 20 mg Documented By: MARIANNE Brimonidine Tartrate (Brimonidine Tartrate 0.2% Oph 5 Ml Bottle) 1 drop EYE-BOTH BID [facility] Last Admin: 09/11/22 10:43 Dose: 1 drop Documented By: BREEZY Colchicine (Colchicine 0.6 Mg Tablet) 0.6 mg PO DAILY [facility] Last Admin: 09/11/22 09:08 Dose: 0.6 mg Documented By: BREEZY Dabigatran (Dabigatran Etexilate Mesylate 150 Mg Capsule) 150 mg PO BID [facility] Last Admin: 09/11/22 09:09 Dose: 150 mg Documented By: BREEZY Docusate Sodium (Docusate Sodium 100 Mg Capsule) 100 mg PO DAILY PRN PRN Reason: Constipation Docusate Sodium (Docusate Sodium 100 Mg Capsule) 100 mg PO BID [facility] Last Admin: 09/11/22 09:08 Dose: 100 mg Documented By: BREEZY Dorzolamide HCl (Dorzolamide Hcl 2 % Ophth Cristina 10 Ml Drpbtl) 1 drop EYE-BOTH BID [facility] Last Admin: 09/11/22 10:43 Dose: 1 drop Documented By: BREEZY Furosemide (Furosemide 40 Mg Tablet) 40 mg PO DAILY [facility]; Protocol Last Admin: 09/11/22 09:08 Dose: 40 mg Documented By: BREEZY Gabapentin (Gabapentin 400 Mg Capsule) 400 mg PO BID [facility] Last Admin: 09/11/22 09:08 Dose: 400 mg Documented By: BREEZY Glucose (Glucose Gel 15 Gm Gel..Gram.) 15 gm PO Q15M PRN; Protocol PRN Reason: per Hypoglycemia Standing Ord. Guaifenesin (Guaifenesin 200 Mg/10 Ml 10 Ml Liquid) 10 ml PO Q4H PRN PRN Reason: Cough Hydroxyzine HCl (Hydroxyzine Hcl 10 Mg Tablet) 10 mg PO BEDTIME PRN PRN Reason: insomnia Dextrose (D10) 250 mls @ 750 mls/hr IV Q15M PRN; Protocol PRN Reason: per Hypoglycemia Standing Ord. Insulin Glargine (Insulin Glargine,Hum.Rec.Anlog 100 Unit/Ml 10 Ml Vial) 35 unit SUBCUT BID [facility] Last Admin: 09/11/22 09:10 Dose: 35 unit Documented By: BREEZY Insulin Human Lispro (Insulin Lispro 100 Unit/Ml 3 Ml Vial) 0 unit SUBCUT QIDACHS [facility]; Protocol Last Admin: 09/11/22 12:15 Dose: 2 unit Documented By: HO.MATTHEP Isosorbide Mononitrate (Isosorbide Mononitrate 30 Mg Tab.Er.24h) 30 mg PO DAILY [facility]; Protocol Last Admin: 09/11/22 09:08 Dose: 30 mg Documented By: BREEZY Latanoprost (Latanoprost 0.005 % Ophth Cristina 2.5 Ml Drops) 1 drop EYE-BOTH BEDTIME [facility] Last Admin: 09/10/22 23:10 Dose: 1 drop Documented By: MARIANNE Losartan Potassium (Losartan Potassium 50 Mg Tablet) 100 mg PO DAILY [facility]; Protocol Last Admin: 09/11/22 09:09 Dose: 100 mg Documented By: BREEZY Nystatin (Nystatin Powder 15 Gm Bottle) 1 appl TOPICAL TID PRN; Protocol PRN Reason: rash Last Admin: 09/10/22 21:42 Dose: 1 appl Documented By: MARIANNE Nystatin/Triamcinolone Acetonide (Nystatin/Triamcinolone Cream 15 Gm Tube) 1 appl TOPICAL BID [facility] Last Admin: 09/11/22 09:10 Dose: 1 appl Documented By: BREEZY Omeprazole (Omeprazole 20 Mg Capsule.Dr) 20 mg PO DAILY@0630 [facility] Last Admin: 09/11/22 09:08 Dose: 20 mg Documented By: BREEZY Ondansetron HCl (Ondansetron Hcl 4 Mg/2 Ml Vial) 4 mg IVPUSH Q8H PRN PRN Reason: Nausea and Vomiting Oxycodone HCl (Oxycodone Hcl Immed Release 5 Mg Tablet) 5 mg PO BID PRN PRN Reason: Pain, Severe (Pain Scale 7-10) Pharmacy Consult (Consult Rx Perform Med Rec) 1 each MISCELLANE ONCE PRN PRN Reason: Consult order Polyethylene Glycol (Polyethylene Glycol 3350 17 Gm Powd.Pack) 17 gm PO BID PRN PRN Reason: Constipation Labs 09/11/22 06:22 09/11/22 06:22 Labs: Laboratory Results - last 24 hr 09/10/22 09/10/22 09/10/22 14:27 17:15 17:37 MCV MCH MCHC RDW Plt Count MPV Immature Gran % (Auto) Neut % (Auto) Lymph % (Auto) [place] % (Auto) Eos % (Auto) Baso % (Auto) Lymph # (Auto) [place] # (Auto) Eos # (Auto) Baso # (Auto) Abs Immat Gran (auto) Absolute Neuts (auto) Absolute Nucleated RBC Nucleated RBC % (auto) Anion Gap Estim Creat Clear Calc Estimated GFR POC Glucose 175 H Random Glucose Calcium Magnesium 1.4 L* Troponin I High Sens 52.2 H* 09/10/22 09/11/22 09/11/22 21:05 06:22 06:22 MCV 84.1 MCH 26.4 L MCHC 31.4 RDW 15.2 Plt Count 225 MPV 10.7 Immature Gran % (Auto) 0.6 H Neut % (Auto) 61.6 Lymph % (Auto) 26.2 [place] % (Auto) 8.5 Eos % (Auto) 2.9 Baso % (Auto) 0.2 Lymph # (Auto) 2.6 [place] # (Auto) 0.9 Eos # (Auto) 0.3 Baso # (Auto) 0.0 Abs Immat Gran (auto) 0.06 H Absolute Neuts (auto) 6.2 Absolute Nucleated RBC 0.000 Nucleated RBC % (auto) 0.0 Anion Gap 12 Estim Creat Clear Calc 81.3 Estimated GFR > 60 POC Glucose 209 H Random Glucose 103 Calcium 9.3 Magnesium 1.7 Troponin I High Sens 09/11/22 09/11/22 07:42 11:31 MCV MCH MCHC RDW Plt Count MPV Immature Gran % (Auto) Neut % (Auto) Lymph % (Auto) [place] % (Auto) Eos % (Auto) Baso % (Auto) Lymph # (Auto) [place] # (Auto) Eos # (Auto) Baso # (Auto) Abs Immat Gran (auto) Absolute Neuts (auto) Absolute Nucleated RBC Nucleated RBC % (auto) Anion Gap Estim Creat Clear Calc Estimated GFR POC Glucose 113 178 H Random Glucose Calcium Magnesium Troponin I High Sens Microbiology Microbiology Results: Microbiology 09/10/22 11:28 Blood Culture - Preliminary Blood - Venous No growth after 24 hours. Assessment and Plan (1) Chest pain: Status: Acute (2) Afib: Status: Acute (3) Coronary artery disease: Status: Acute Plan 76 year old female with history type 2 diabetes, renal mass, COPD, CHF unspecified EF, hypertension, GERD, coronary artery disease, fibromyalgia, diabetic polyneuropathy, chronic low back pain, hyperlipidemia, paroxysmal atrial fibrillation anticoagulated with Pradaxa on flecainide, bipolar disorder, and balance disorder ambulates with walker at baseline among others to be observed for hypomagnesemia and chest pain. #Hypomagnesemia -Mag 1.1, ?r/t ppi use, had low magnesium in the past received 4 g of IV magnesium, now magnesium 1.[address] on Mag oxide 400 mg b.i.d. #Chest pain -history CAD with coronary calcifications noted on chest CT -Seems atypical, but cannot rule out angina,EKG with new LBBB. -Trops elevated, but flat -Currently asymptomatic -continue statin, isosorbide, beta-tara,and Pradaxa Await Cardiology input. #Type 2 diabetes with hyperglycemia -blood sugars stable, dose adjusted basal insulin -humalog sliding scale,diabetic diet,follow POC glucose # hypertension -reasonably controlled continue home meds # paroxysmal atrial fibrillation -pacemaker in place,on Pradaxa -hold flecainide per cardiology, continue atenolol # CHF with preserved EF, -no acute exacerbation -continue p.o. diuretics # COPD -no acute exacerbation, continue home inhalers # diabetic polyneuropathy -continue gabapentin # obesity recommend low-calorie diet DVT prophylaxis-Pradaxa Full code Patient need continued inpatient hospitalization for hypo magnesemia, chest pain and for expert cardiac consultation and further cardiac workup Time Spent With Patient Time: Total time managing care of this patient today ____ minutes. Quality Stroke Does the patient have a stroke diagnosis?: No VTE Prior VTE?: No VTE Risk Level:: Medical - moderate - high VTE Device Contraindication: Treatment Not Indicated VTE Drug Contraindication: N/A - Med Ordered
[2022-09-11 14:40] LABS: Influenza B2 Negative (Negative)
--- NOTE | 2022-09-11 15:36 | PM.CNCAR ---
History of Present Illness History of Present Illness Date of Service: 09/11/22 Requesting physician: Ann Henderson Chief complaint: CP Narrative: [age] year female who presented to hospital with choking sensation after her son gave her some medications. Is unclear what medication was given to her. She is saying she was feeling like a viral illness is starting and she was given some medications by daughter and then her son given pill. She said she started choking after the pill. These symptoms by her report she came to the emergency department. She is denying any chest pain or shortness of breath otherwise. EKG was thought to be left bundle-branch block but she has paced rhythm which is present already EKGs. She is denying any other issues currently. Her magnesium level is low and she is getting some supplementation. She follows up at [facility] with [facility]. She has a background history of paroxysmal atrial fibrillation and previous dual-chamber pacemaker placement for AV block. [facility] Past Medical History Medical History (Updated 09/10/22 @ 16:38 by MACK Galvez) Afib Arthritis COPD (chronic obstructive pulmonary disease) Coronary artery disease Decompensated heart failure Fibromyalgia Foot ulcer NADEGE (generalized anxiety disorder) GERD (gastroesophageal reflux disease) HTN (hypertension) Insulin dependent type 1 diabetes mellitus Mass of right kidney Pacemaker Family History Family History Father No problems noted. Mother No problems noted. Surgical History Surgical History History of cataract surgery History of pacemaker 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, [facility]) Alcohol intake: never Patient Tobacco Use Status: Never used Tobacco Smoked in Last 30 Days: No e-Cigarette/Vaping Use: Never Used Use of substances other than those prescribed or required for medical reasons: No Currently Displaying Signs/Symptoms of Drug Intoxication Withdrawal: No Have you been hit, kicked, punched, or otherwise hurt by someone within the past year? If so, by whom?: No Do you feel safe in your current relationship?: No Current Relationship Is there a partner from a previous relationship who is making you feel unsafe now?: No Are you made to feel afraid or neglected: No Scientologist Healthcare Practices: Islam Advance Directives: Yes Advance Directives on File: Yes Advance Directives Date on File: 06/17/20 Do you have thoughts of harming others: None Do you have a plan to hurt others: No Plan Recently lost weight without trying: No Nutrition Risks: Difficulty swallowing Patient : No : No Poor oral hygiene: No service: No Current occupational status: retired and disabled Cognitive needs: Yes Hearing needs: No Vision needs: Yes Meds Allergies Allergy/AdvReac Type Severity Reaction Status Date / Time dapagliflozin [From [facility]] Allergy Unknown yeast Verified 07/21/22 12:23 infection metformin Allergy Unknown Diarrhea Verified 07/21/22 12:23 amitriptyline AdvReac Intermediate Anxiety Verified 07/21/22 12:23 clindamycin AdvReac Mild Itching Verified 07/21/22 12:23 Active Medications: Current Medications Acetaminophen (Acetaminophen 325 Mg Tablet) 650 mg PO Q6H PRN PRN Reason: Pain, Mild (Pain Scale 1-3) Last Admin: 09/10/22 21:42 Dose: 650 mg Albuterol Sulfate (Albuterol Sulfate 90 Mcg 8 Gm Inhaler) 2 puff INHALE RQ4H PRN PRN Reason: bronchospasm Atenolol (Atenolol 50 Mg Tablet) 50 mg PO DAILY [facility]; Protocol Last Admin: 09/11/22 09:08 Dose: 50 mg Atorvastatin Calcium (Atorvastatin Calcium 20 Mg Tablet) 20 mg PO BEDTIME [facility] Last Admin: 09/10/22 20:28 Dose: 20 mg Brimonidine Tartrate (Brimonidine Tartrate 0.2% Oph 5 Ml Bottle) 1 drop EYE-BOTH BID [facility] Last Admin: 09/11/22 10:43 Dose: 1 drop Colchicine (Colchicine 0.6 Mg Tablet) 0.6 mg PO DAILY [facility] Last Admin: 09/11/22 09:08 Dose: 0.6 mg Dabigatran (Dabigatran Etexilate Mesylate 150 Mg Capsule) 150 mg PO BID [facility] Last Admin: 09/11/22 09:09 Dose: 150 mg Docusate Sodium (Docusate Sodium 100 Mg Capsule) 100 mg PO DAILY PRN PRN Reason: Constipation Docusate Sodium (Docusate Sodium 100 Mg Capsule) 100 mg PO BID [facility] Last Admin: 09/11/22 09:08 Dose: 100 mg Dorzolamide HCl (Dorzolamide Hcl 2 % Ophth Cristina 10 Ml Drpbtl) 1 drop EYE-BOTH BID [facility] Last Admin: 09/11/22 10:43 Dose: 1 drop Furosemide (Furosemide 40 Mg Tablet) 40 mg PO DAILY [facility]; Protocol Last Admin: 09/11/22 09:08 Dose: 40 mg Gabapentin (Gabapentin 400 Mg Capsule) 400 mg PO BID [facility] Last Admin: 09/11/22 09:08 Dose: 400 mg Glucose (Glucose Gel 15 Gm Gel..Gram.) 15 gm PO Q15M PRN; Protocol PRN Reason: per Hypoglycemia Standing Ord. Guaifenesin (Guaifenesin 200 Mg/10 Ml 10 Ml Liquid) 10 ml PO Q4H PRN PRN Reason: Cough Hydroxyzine HCl (Hydroxyzine Hcl 10 Mg Tablet) 10 mg PO BEDTIME PRN PRN Reason: insomnia Dextrose (D10) 250 mls @ 750 mls/hr IV Q15M PRN; Protocol PRN Reason: per Hypoglycemia Standing Ord. Insulin Glargine (Insulin Glargine,Hum.Rec.Anlog 100 Unit/Ml 10 Ml Vial) 35 unit SUBCUT BID [facility] Last Admin: 09/11/22 09:10 Dose: 35 unit Insulin Human Lispro (Insulin Lispro 100 Unit/Ml 3 Ml Vial) 0 unit SUBCUT QIDACHS [facility]; Protocol Last Admin: 09/11/22 12:15 Dose: 2 unit Isosorbide Mononitrate (Isosorbide Mononitrate 30 Mg Tab.Er.24h) 30 mg PO DAILY [facility]; Protocol Last Admin: 09/11/22 09:08 Dose: 30 mg Latanoprost (Latanoprost 0.005 % Ophth Cristina 2.5 Ml Drops) 1 drop EYE-BOTH BEDTIME [facility] Last Admin: 09/10/22 23:10 Dose: 1 drop Losartan Potassium (Losartan Potassium 50 Mg Tablet) 100 mg PO DAILY [facility]; Protocol Last Admin: 09/11/22 09:09 Dose: 100 mg Magnesium Oxide (Magnesium Oxide 400 Mg Tablet) [facility] Nystatin (Nystatin Powder 15 Gm Bottle) 1 appl TOPICAL TID PRN; Protocol PRN Reason: rash Last Admin: 09/10/22 21:42 Dose: 1 appl Nystatin/Triamcinolone Acetonide (Nystatin/Triamcinolone Cream 15 Gm Tube) 1 appl TOPICAL BID [facility] Last Admin: 09/11/22 09:10 Dose: 1 appl Omeprazole (Omeprazole 20 Mg Capsule.Dr) 20 mg PO DAILY@0630 [facility] Last Admin: 09/11/22 09:08 Dose: 20 mg Ondansetron HCl (Ondansetron Hcl 4 Mg/2 Ml Vial) 4 mg IVPUSH Q8H PRN PRN Reason: Nausea and Vomiting Oxycodone HCl (Oxycodone Hcl Immed Release 5 Mg Tablet) 5 mg PO BID PRN PRN Reason: Pain, Severe (Pain Scale 7-10) Pharmacy Consult (Consult Rx Perform Med Rec) 1 each MISCELLANE ONCE PRN PRN Reason: Consult order Polyethylene Glycol (Polyethylene Glycol 3350 17 Gm Powd.Pack) 17 gm PO BID PRN PRN Reason: Constipation Home Medications Medication Instructions Recorded Confirmed Last Taken Type blood sugar diagnostic #10 ea 03/12/20 07/21/22 Unknown History brinzolamide 1 %-brimonidine 0.2 % 1 drp ophthalmic (eye) BID 04/24/21 09/10/22 Unknown History eye drops,suspension (Simbrinza) latanoprost 0.005 % eye drops 1 drp ophthalmic (eye) BEDTIME 04/24/21 09/10/22 Unknown History polyethylene glycol 3350 17 17 g PO BID PRN Constipation 04/24/21 09/10/22 Unknown History gram/dose oral powder (Miralax) walker 06/30/21 07/21/22 Unknown History docusate sodium 100 mg capsule 100 mg PO BID 09/10/22 09/10/22 Unknown History gabapentin 400 mg capsule 400 mg PO BID PRN Pain 09/10/22 09/10/22 Unknown History insulin aspart U-100 100 unit/mL See Protocol subcut TIDAC PRN 09/10/22 09/10/22 Unknown History (3 mL) subcutaneous pen (Novolog Hyperglycemia FlexPen U-100 Insulin aspart) oxycodone 5 mg tablet 5 mg PO BID PRN Pain 09/10/22 09/10/22 Unknown History Physical Exam Vital Signs: Vital Signs: Last Vital Signs Temp 97.4 F 09/11/22 07:46 Pulse 80 09/11/22 07:46 Resp 18 09/11/22 07:46 BP 137/94 H 09/11/22 07:46 Pulse Ox 100 09/11/22 07:46 O2 Del Method Nasal Cannula 09/11/22 07:46 O2 Flow Rate 2 09/11/22 07:46 BMI result Body Mass Index 36.3 GENERAL APPEARANCE: in no acute distress, pleasant. NECK: no carotid bruit, no jugular venous distention. SKIN: no suspicious lesions, warm and dry. HEART: no murmurs, regular rate and rhythm. LUNGS: clear to auscultation bilaterally. ABDOMEN: soft, nontender. EXTREMITIES: no edema. PERIPHERAL PULSES: equal. NEUROLOGIC: No gross deficits, AAO X 3 Objective Labs and Meds 09/11/22 06:22 09/11/22 06:22 Lab results: Laboratory Results - last 24 hr 09/10/22 09/10/22 09/10/22 10:26 17:15 17:37 WBC RBC Hgb Hct MCV MCH MCHC RDW Plt Count MPV Immature Gran % (Auto) Neut % (Auto) Lymph % (Auto) [place] % (Auto) Eos % (Auto) Baso % (Auto) Lymph # (Auto) [place] # (Auto) Eos # (Auto) Baso # (Auto) Abs Immat Gran (auto) Absolute Neuts (auto) Absolute Nucleated RBC Nucleated RBC % (auto) Sodium Potassium Chloride Carbon Dioxide Anion Gap BUN Creatinine Estim Creat Clear Calc Estimated GFR POC Glucose 175 H Random Glucose Calcium Magnesium 1.4 L* Influenza Type B (AR) Negative 09/10/22 09/11/22 09/11/22 21:05 06:22 06:22 WBC 10.0 RBC 4.66 Hgb 12.3 Hct 39.2 MCV 84.1 MCH 26.4 L MCHC 31.4 RDW 15.2 Plt Count 225 MPV 10.7 Immature Gran % (Auto) 0.6 H Neut % (Auto) 61.6 Lymph % (Auto) 26.2 [place] % (Auto) 8.5 Eos % (Auto) 2.9 Baso % (Auto) 0.2 Lymph # (Auto) 2.6 [place] # (Auto) 0.9 Eos # (Auto) 0.3 Baso # (Auto) 0.0 Abs Immat Gran (auto) 0.06 H Absolute Neuts (auto) 6.2 Absolute Nucleated RBC 0.000 Nucleated RBC % (auto) 0.0 Sodium 144 Potassium 3.5 Chloride 104 Carbon Dioxide 32 H Anion Gap 12 BUN 10 Creatinine 0.71 Estim Creat Clear Calc 81.3 Estimated GFR > 60 POC Glucose 209 H Random Glucose 103 Calcium 9.3 Magnesium 1.7 Influenza Type B (AR) 09/11/22 09/11/22 07:42 11:31 WBC RBC Hgb Hct MCV MCH MCHC RDW Plt Count MPV Immature Gran % (Auto) Neut % (Auto) Lymph % (Auto) [place] % (Auto) Eos % (Auto) Baso % (Auto) Lymph # (Auto) [place] # (Auto) Eos # (Auto) Baso # (Auto) Abs Immat Gran (auto) Absolute Neuts (auto) Absolute Nucleated RBC Nucleated RBC % (auto) Sodium Potassium Chloride Carbon Dioxide Anion Gap BUN Creatinine Estim Creat Clear Calc Estimated GFR POC Glucose 113 178 H Random Glucose Calcium Magnesium Influenza Type B (AR) Assessment and Plan (1) Chest pain: Status: Acute Plan 76-year-old female who is presenting hospital with choking sensation after she take a tablet. She is feeling better now. She is known to have been [facility]. She has known history of mild cardiomyopathy in the past as well as paroxysmal atrial fibrillation. She has paced rhythm on the EKG which is chronic for her. She previously had pacemaker placed for AV block. She was on flecainide for paroxysmal atrial fibrillation. She has a paced rhythm. I thing flecainide can be continued as before. Monitor electrolytes closely and make sure the magnesium and potassium are normal before your resume the flecainide. She is on dabigatran for anticoagulation. She is denying any significant issues currently. It is by her description she choked on a medication after was given to her and that is why she came to the ER. Follow-up with [facility] after discharge. Signing off. Thank you for allowing me to participate in the care of your patient. Please feel free to contact me if you have any questions. Time Spent With Patient Time: Total time managing care of this patient today ____ minutes. Procedures Date of Service Date of Service: 09/11/22
[2022-09-11 15:37] VITALS: BP 135/59; PULSE 80; RESP 15; TEMP 36; O2SAT 96
[2022-09-11 16:17] LABS: Glucose, Whole Blood 183 mg/dL (60-115)
[2022-09-11] MEDS: Acetaminophen 325 MG TABLET 650 MG PO (16:42)
[2022-09-11] MEDS: Magnesium Oxide 400 MG TABLET PO (16:44)
[2022-09-11 19:21] VITALS: BP 103/53; PULSE 80; RESP 15; TEMP 36; O2SAT 93
[2022-09-11] MEDS: Atorvastatin Calcium 20 MG TABLET PO (20:39)
[2022-09-11] MEDS: Nystatin Powder 15 GM BOTTLE 1 APPL TOPICAL (20:39)
[2022-09-11] MEDS: Latanoprost 0.005 % Ophth Sol 2.5 ML DROPS 1 DROP EYE-BOTH (20:40)
[2022-09-11 21:12] LABS: Glucose, Whole Blood 253 mg/dL (60-115)
[2022-09-11] MEDS: hydrOXYzine HCL 10 MG TABLET PO (21:52)
[2022-09-12 03:45] VITALS: BP 114/53; PULSE 80; RESP 16; TEMP 36.9; O2SAT 95
[2022-09-12] MEDS: Omeprazole 20 MG CAPSULE.DR PO (05:23)
[2022-09-12 07:24] VITALS: BP 148/66; PULSE 80; RESP 20; TEMP 36.6; O2SAT 94
[2022-09-12 07:30] LABS: Glucose, Whole Blood 144 mg/dL (60-115)
[2022-09-12 07:39] VITALS: BP 137/80; PULSE 76; RESP 20; TEMP 36.4; O2SAT 93
[2022-09-12] MEDS: Gabapentin 400 MG CAPSULE PO (08:44)
[2022-09-12] MEDS: Isosorbide Mononitrate 30 MG TAB.ER.24H PO (08:44)
[2022-09-12] MEDS: Losartan Potassium 50 MG TABLET 100 MG PO (08:44)
[2022-09-12] MEDS: Colchicine 0.6 MG TABLET PO (08:44)
[2022-09-12] MEDS: Dabigatran Etexilate Mesylate 150 MG CAPSULE PO ×2 (08:44→20:19)
[2022-09-12] MEDS: atenoloL 50 MG TABLET PO (08:44)
[2022-09-12] MEDS: Brimonidine Tartrate 0.2% Oph 5 ML BOTTLE 1 DROP EYE-BOTH ×2 (08:45→20:29)
[2022-09-12] MEDS: Insulin Glargine,Hum.rec.anlog 100 UNIT/ML 10 ML VIAL 35 UNIT SUBCUT ×2 (08:45→20:18)
[2022-09-12] MEDS: Dorzolamide HCl 2 % Ophth Sol 10 ML DRPBTL 1 DROP EYE-BOTH ×2 (08:45→20:29)
[2022-09-12] MEDS: Docusate Sodium 100 MG CAPSULE PO ×2 (08:45→20:21)
[2022-09-12] MEDS: Magnesium Oxide 400 MG TABLET PO (08:45)
[2022-09-12] MEDS: Furosemide 40 MG TABLET PO (08:45)
[2022-09-12] MEDS: Nystatin/Triamcinolone Cream 15 GM TUBE 1 APPL TOPICAL ×2 (08:46→20:35)
[2022-09-12 10:09] LABS: Anion Gap 14 (12-20); Blood Urea Nitrogen 14 mg/dL (9-16); Calcium 9.4 mg/dL (8.4-10.2); Carbon Dioxide 28 mmol/L (22-29); Chloride 103 mmol/L (96-108); Creatinine Clr Calc Pharmacy 79.1; Estimated Glomerular Filt Rate > 60; Potassium 3.6 mmol/L (3.3-5.1); Sodium 141 mmol/L (135-145)
[2022-09-12 10:12] LABS: Magnesium 1.4 mg/dL (1.6-2.6)
[2022-09-12] MEDS: Magnesium Sulfate/H2O 2 GM/50 ML PIGGYBACK IV (11:11)
[2022-09-12 11:39] LABS: Glucose, Whole Blood 183 mg/dL (60-115)
[2022-09-12] MEDS: Insulin Lispro 100 UNIT/ML 3 ML VIAL SUBCUT ×3 (11:56→20:18)
[2022-09-12 11:57] LABS: Glucose Random 139 mg/dL (60-115)
--- NOTE | 2022-09-12 12:00 | HO.PM.IMPN ---
Subjective Subjective Date of Service: 09/12/22 Interval History: This history was taken in Armenian from the patient. No chest pain or dyspnea Mg low at 1.4 Review of Systems Review of Systems: Yes all other systems are reviewed and are negative Physical Exam Vital Signs: Vital Signs: Last Vital Signs Temp 97.6 F 09/12/22 07:39 Pulse 76 09/12/22 07:39 Resp 20 09/12/22 07:39 BP 137/80 09/12/22 07:39 Pulse Ox 93 09/12/22 07:39 O2 Del Method Nasal Cannula 09/12/22 07:39 O2 Flow Rate 4 09/12/22 07:39 BMI result Body Mass Index 36.3 Gen: in no acute distress HEENT: sclera anicteric, moist mucus membranes Neck: supple Lungs: clear to auscultation bilaterally Heart: regular rate and rhythm, no murmurs Abd: soft, non-tender, non-distended Ext: no edema Skin: shallow ulcer right lower leg medially, chronic venous stasis dermatitis Neuro: alert and oriented x3, no focal findings Psych: appropriate affect Objective Data Active Medications Acetaminophen (Acetaminophen 325 Mg Tablet) 650 mg PO Q6H PRN PRN Reason: Pain, Mild (Pain Scale 1-3) Last Admin: 09/11/22 16:42 Dose: 650 mg Documented By: BREEZY Albuterol Sulfate (Albuterol Sulfate 90 Mcg 8 Gm Inhaler) 2 puff INHALE RQ4H PRN PRN Reason: bronchospasm Atenolol (Atenolol 50 Mg Tablet) 50 mg PO DAILY [facility]; Protocol Last Admin: 09/12/22 08:44 Dose: 50 mg Documented By: MARK Atorvastatin Calcium (Atorvastatin Calcium 20 Mg Tablet) 20 mg PO BEDTIME [facility] Last Admin: 09/11/22 20:39 Dose: 20 mg Documented By: ANUEL Brimonidine Tartrate (Brimonidine Tartrate 0.2% Oph 5 Ml Bottle) 1 drop EYE-BOTH BID [facility] Last Admin: 09/12/22 08:45 Dose: 1 drop Documented By: MARK Colchicine (Colchicine 0.6 Mg Tablet) 0.6 mg PO DAILY [facility] Last Admin: 09/12/22 08:44 Dose: 0.6 mg Documented By: MARK Dabigatran (Dabigatran Etexilate Mesylate 150 Mg Capsule) 150 mg PO BID [facility] Last Admin: 09/12/22 08:44 Dose: 150 mg Documented By: MARK Docusate Sodium (Docusate Sodium 100 Mg Capsule) 100 mg PO DAILY PRN PRN Reason: Constipation Docusate Sodium (Docusate Sodium 100 Mg Capsule) 100 mg PO BID [facility] Last Admin: 09/12/22 08:45 Dose: 100 mg Documented By: MARK Dorzolamide HCl (Dorzolamide Hcl 2 % Ophth Cristina 10 Ml Drpbtl) 1 drop EYE-BOTH BID [facility] Last Admin: 09/12/22 08:45 Dose: 1 drop Documented By: MARK Furosemide (Furosemide 40 Mg Tablet) 40 mg PO DAILY [facility]; Protocol Last Admin: 09/12/22 08:45 Dose: 40 mg Documented By: MARK Gabapentin (Gabapentin 400 Mg Capsule) 400 mg PO BID [facility] Last Admin: 09/12/22 08:44 Dose: 400 mg Documented By: MARK Glucose (Glucose Gel 15 Gm Gel..Gram.) 15 gm PO Q15M PRN; Protocol PRN Reason: per Hypoglycemia Standing Ord. Guaifenesin (Guaifenesin 200 Mg/10 Ml 10 Ml Liquid) 10 ml PO Q4H PRN PRN Reason: Cough Hydroxyzine HCl (Hydroxyzine Hcl 10 Mg Tablet) 10 mg PO BEDTIME PRN PRN Reason: insomnia Last Admin: 09/11/22 21:52 Dose: 10 mg Documented By: ANUEL Dextrose (D10) 250 mls @ 750 mls/hr IV Q15M PRN; Protocol PRN Reason: per Hypoglycemia Standing Ord. Magnesium Sulfate (Magnesium Sulfate/H2o) 2 gm in 50 mls @ 25 mls/hr IV ONCE ONE Stop: 09/12/22 12:22 Last Admin: 09/12/22 11:11 Dose: 25 mls/hr Documented By: MARK Insulin Glargine (Insulin Glargine,Hum.Rec.Anlog 100 Unit/Ml 10 Ml Vial) 35 unit SUBCUT BID [facility] Last Admin: 09/12/22 08:45 Dose: 35 unit Documented By: MARK Insulin Human Lispro (Insulin Lispro 100 Unit/Ml 3 Ml Vial) 0 unit SUBCUT QIDACHS [facility]; Protocol Last Admin: 09/12/22 11:56 Dose: 2 unit Documented By: MARK Isosorbide Mononitrate (Isosorbide Mononitrate 30 Mg Tab.Er.24h) 30 mg PO DAILY [facility]; Protocol Last Admin: 09/12/22 08:44 Dose: 30 mg Documented By: MARK Latanoprost (Latanoprost 0.005 % Ophth Cristina 2.5 Ml Drops) 1 drop EYE-BOTH BEDTIME [facility] Last Admin: 09/11/22 20:40 Dose: 1 drop Documented By: ANUEL Losartan Potassium (Losartan Potassium 50 Mg Tablet) 100 mg PO DAILY [facility]; Protocol Last Admin: 09/12/22 08:44 Dose: 100 mg Documented By: MARK Magnesium Oxide ([facility]ide 400 Mg Tablet) [facility] Nystatin (Nystatin Powder 15 Gm Bottle) 1 appl TOPICAL TID PRN; Protocol PRN Reason: rash Last Admin: 09/11/22 20:39 Dose: 1 appl Documented By: ANUEL Nystatin/Triamcinolone Acetonide (Nystatin/Triamcinolone Cream 15 Gm Tube) 1 appl TOPICAL BID [facility] Last Admin: 09/12/22 08:46 Dose: 1 appl Documented By: MARK Omeprazole (Omeprazole 20 Mg Capsule.Dr) 20 mg PO DAILY@0630 [facility] Last Admin: 09/12/22 05:23 Dose: 20 mg Documented By: ANUEL Ondansetron HCl (Ondansetron Hcl 4 Mg/2 Ml Vial) 4 mg IVPUSH Q8H PRN PRN Reason: Nausea and Vomiting Oxycodone HCl (Oxycodone Hcl Immed Release 5 Mg Tablet) 5 mg PO BID PRN PRN Reason: Pain, Severe (Pain Scale 7-10) Pharmacy Consult (Consult Rx Perform Med Rec) 1 each MISCELLANE ONCE PRN PRN Reason: Consult order Polyethylene Glycol (Polyethylene Glycol 3350 17 Gm Powd.Pack) 17 gm PO BID PRN PRN Reason: Constipation Labs 09/11/22 06:22 09/12/22 08:36 Labs: Laboratory Results - last 24 hr 09/10/22 09/11/22 09/11/22 10:26 16:13 21:08 Anion Gap Estim Creat Clear Calc Estimated GFR POC Glucose 183 H 253 H Random Glucose Calcium Magnesium Influenza Type B (AR) Negative 09/12/22 09/12/22 09/12/22 07:24 08:36 11:34 Anion Gap 14 Estim Creat Clear Calc 79.1 Estimated GFR > 60 POC Glucose 144 H 183 H Random Glucose 139 H Calcium 9.4 Magnesium 1.4 L* Influenza Type B (AR) Microbiology Microbiology Results: Microbiology 09/10/22 12:28 Blood Culture - Preliminary Blood - Venous No growth after 24 hours. 09/10/22 11:28 Blood Culture - Preliminary Blood - Venous No growth after 24 hours. Assessment and Plan (1) Chest pain: Status: Acute (2) Afib: Status: Acute (3) Coronary artery disease: Status: Acute Plan d#3 76yo F with DM2, renal mass, COPD, CHF with unknown EF, HTN, GERD, CAD, FM, DM polyneuropathy, chronic LBP, HLD, pAF on dabigatran + flecainide, bipolar disorder, balance disorder [ambulates with walker at baseline] admitted for hypoMg, chest pain # chest pain - hx CAD, coronary calcifications noted on chest CT - Tn-I indeterminate, flat - Cardiology consulted, unlikely ACS - outpt f/u with her beauty specialist at [facility] # hypoMg - replete IV/PO, recheck level in AM - ?related to PPI # paroxysmal AF - continue dabigatran - continue atenolol - hold flecainide until Mg repleted per Cardiology # DM2 with hyperglycemia - basal glargine + correction-dose lispro # HTN # HFpEF, chronic, no acute exac - continue losartan, Imdur, furosemide, atenolol # COPD, no acute exac - continue home inhalers # DM neuropathy - gabapentin # VTE ppx: dabigatran # dispo: eventual home with [facility]/[employer] [employer] resumption In my clinical judgment, the patient requires continued inpatient hospitalization for the following reasons: hypoMg Time Spent With Patient Time: Total time managing care of this patient today _35___ minutes. Quality Stroke Does the patient have a stroke diagnosis?: No VTE Prior VTE?: No VTE Risk Level:: Medical - moderate - high VTE Device Contraindication: Treatment Not Indicated VTE Drug Contraindication: N/A - Med Ordered
[2022-09-12 13:58] VITALS: BMI 36.3
--- NOTE | 2022-09-12 14:07 | MHC.CLN ---
nUTRITION CONSULT FOR SKIN INTEGRITY. IRTG=[id number] KCAL, CARDIAC, NDD2 CONSISTENCY. STAGE II PRESSURE INJURY TO BILATERAL BUTTOCKS. ADDING ENSURE MAX PROTEIN TO PROMOTE WOUND HEALING. PROVIDES 300 KCALS, 60 G PROTEIN. MECHANICALLY ALTERED DIET DUE TO DIFFICULTY SWALLOWING. PO INTAKE APPEARS TO BE 100%. FOLLOW FOR INTAKE, DIET CONSISTENCY, AND WOUND HEALING. SEE CLINICAL NUTRITION ASSESSMENT 09/12/22.
--- NOTE | 2022-09-12 14:52 | MHC.CM.PN ---
Per MD rounds Mag low. Patient will receive mag replace today. Mag will be checked in the AM. DP home with resumption of [facility] for wound care and assessment. Patients dtr may provide transportation.
[2022-09-12 15:38] VITALS: BP 141/63; PULSE 80; RESP 20; TEMP 36.3; O2SAT 96
[2022-09-12 16:30] LABS: Glucose, Whole Blood 249 mg/dL (60-115)
[2022-09-12] MEDS: Magnesium Oxide 400 MG TABLET 800 MG PO (16:44)
[2022-09-12] MEDS: Albuterol Sulfate 90 MCG 8 GM INHALER 2 PUFF INHALE ×2 (18:25→22:34)
[2022-09-12 19:59] VITALS: BP 139/63; PULSE 80; RESP 18; TEMP 36.5; O2SAT 97
[2022-09-12] MEDS: Atorvastatin Calcium 20 MG TABLET PO (20:19)
[2022-09-12] MEDS: Latanoprost 0.005 % Ophth Sol 2.5 ML DROPS 1 DROP EYE-BOTH (20:29)
[2022-09-12 20:39] LABS: Glucose, Whole Blood 277 mg/dL (60-115)
[2022-09-12 22:37] VITALS: PULSE 80; O2SAT 96
[2022-09-13] MEDS: Acetaminophen 325 MG TABLET 650 MG PO (01:57)
[2022-09-13 03:24] VITALS: BP 152/67; PULSE 81; RESP 16; TEMP 36.1; O2SAT 98
[2022-09-13] MEDS: Omeprazole 20 MG CAPSULE.DR PO (05:20)
[2022-09-13 06:08] LABS: Anion Gap 14 (12-20); Blood Urea Nitrogen 12 mg/dL (9-16); Calcium 9.8 mg/dL (8.4-10.2); Carbon Dioxide 31 mmol/L (22-29); Chloride 102 mmol/L (96-108); Creatinine Clr Calc Pharmacy 76.9; Estimated Glomerular Filt Rate > 60; Glucose Random 114 mg/dL (60-115); Magnesium 1.7 mg/dL (1.6-2.6); Potassium 3.7 mmol/L (3.3-5.1); Sodium 143 mmol/L (135-145)
[2022-09-13 07:43] LABS: Glucose, Whole Blood 138 mg/dL (60-115)
[2022-09-13 07:44] VITALS: BP 139/62; PULSE 80; RESP 17; TEMP 36.7; O2SAT 95
[2022-09-13] MEDS: Insulin Glargine,Hum.rec.anlog 100 UNIT/ML 10 ML VIAL 35 UNIT SUBCUT (08:39)
[2022-09-13] MEDS: Brimonidine Tartrate 0.2% Oph 5 ML BOTTLE 1 DROP EYE-BOTH (08:39)
[2022-09-13] MEDS: Isosorbide Mononitrate 30 MG TAB.ER.24H PO (08:40)
[2022-09-13] MEDS: Furosemide 40 MG TABLET PO (08:40)
[2022-09-13] MEDS: Gabapentin 400 MG CAPSULE PO (08:40)
[2022-09-13] MEDS: Colchicine 0.6 MG TABLET PO (08:40)
[2022-09-13] MEDS: Dabigatran Etexilate Mesylate 150 MG CAPSULE PO (08:40)
[2022-09-13] MEDS: atenoloL 50 MG TABLET PO (08:40)
[2022-09-13] MEDS: Dorzolamide HCl 2 % Ophth Sol 10 ML DRPBTL 1 DROP EYE-BOTH (08:40)
[2022-09-13] MEDS: Docusate Sodium 100 MG CAPSULE PO (08:40)
[2022-09-13] MEDS: Magnesium Oxide 400 MG TABLET 800 MG PO (08:41)
[2022-09-13] MEDS: Losartan Potassium 50 MG TABLET 100 MG PO (08:41)
[2022-09-13] MEDS: Flecainide Acetate 50 MG TABLET 100 MG PO (08:45)
[2022-09-13] MEDS: Nystatin Powder 15 GM BOTTLE 1 APPL TOPICAL (08:46)
[2022-09-13 11:19] LABS: Glucose, Whole Blood 162 mg/dL (60-115)
[2022-09-13 11:31] VITALS: BP 139/62; PULSE 80; O2SAT 95
[2022-09-13] MEDS: Insulin Lispro 100 UNIT/ML 3 ML VIAL SUBCUT (11:36)
--- NOTE | 2022-09-13 13:54 | P.DS_ITS ---
DS: Providers Provider Date of Service: 09/13/22 Date of admission: 09/11/22 12:18 Date of discharge: 09/13/22 Primary care physician: Micheal Biggs PA-C Consults: 09/10/22 15:53 Consult to Cardiology Routine Consulting Provider: [facility] Reason for consultation: chest pain, new LBBB DS: Diagnosis Discharge Diagnosis (1) Chest pain: Status: Acute (2) Coronary artery disease: Status: Acute (3) Hypomagnesemia: Status: Acute DS: Summary Hospital Course Hospital Course: from admission H+P by hospitalist MACK Galvez, 09/10/22: 76 year old female with history type 2 diabetes, renal mass, COPD, CHF unspecified EF, hypertension, GERD, coronary artery disease, fibromyalgia, diabetic polyneuropathy, chronic low back pain, hyperlipidemia, paroxysmal atrial fibrillation anticoagulated with Pradaxa on flecainide, bipolar disorder, and balance disorder ambulates with walker at baseline among others presented to the ED for evaluation of chest pain.? She states last night she had an episode of coughing with shortness of breath and sore throat and was noted to have choked on her Robitussin.? However the symptoms have resolved.? This morning she had an episode of chest pain located over the left breast that was present at rest and did not worsen with exertion.? There was no radiation.? The pain lasts for several seconds and dissipated.? She has had similar episodes of chest pain in the past.? There is no associated shortness of breath, diaphoresis, nausea, epigastric pain.? She denies any fevers, chills, abdominal pain, nausea, vomiting, diarrhea, constipation, headaches, lightheadedness, palpitations, retrosternal chest pressure.? Denies any sick contacts.? Patient denies any chest pain at this time. On arrival, patient afebrile, vitals stable.? No leukocytosis.? Renal function and electrolyte levels normal except for hypo magnesiumia of 1.1 which was repleted in the ED with 2 g of IV magnesium sulfate.? Initial troponin 62.4, repeat 52.2.? BNP 142.? EKG showing NSR, rate 80 with new left bundle branch block, no WINSTON or ST depressions.? CXR showing mild vascular congestion but no acute cardiopulmonary abnormality.? Chest CT with diminished lungs and pulmonary vascular congestion but no significant edema or pleural effusion.? Showing cardi omegaly and coronary calcifications.? She is negative for COVID-19 and influenza.? In the ED, magnesium repleted with 2 g and also given 4 mg morphine. 76yo F with DM2, renal mass, COPD, CHF with unknown EF, HTN, GERD, CAD, FM, DM polyneuropathy, chronic LBP, HLD, pAF on dabigatran + flecainide, bipolar disorder, balance disorder [ambulates with walker at baseline]. She was admitted for hypomagnesemia and chest pain. Hospital course by problem: # chest pain - Given history of CAD and coronary calcifications noted on chest CT she was admitted and Cardiology was consulted. Troponin was indeterminate and flat. Per Cardiology unlikely to have ACS. Outpatient follow-up with her loan documentation specialist at [facility] was recommended. Chest pain resolved. # hypomagnesemia - This was repleted aggressively IV and PO and eventually she was placed on magnesium oxide 800 mg twice daily. A level should be repeated in 1 week. # atrial fibrillation, paroxysmal - Dabigatran and atenolol were continued. Flecainide was held until magneseium was normal, then flecainide was resmed. She was discharged home with resumption of previous [facility] and [facility] services. Time Spent with Patient Time attestation: Total time managing care of this patient today ___35_ minutes. Discharge coordination time: Greater than 30 minutes Quality: Safe Use of Opioids Does Pt have an Active Cancer Diagnosis on the Problem List?: No Quality: Stroke Does the patient have a stroke diagnosis?: No Physical Exam Vital Signs: Vital Signs: Last Vital Signs Temp 98.0 F 09/13/22 07:44 Pulse 80 09/13/22 11:31 Resp 17 09/13/22 07:44 BP 139/62 09/13/22 11:31 Pulse Ox 95 09/13/22 11:31 O2 Del Method Room Air 09/13/22 07:44 O2 Flow Rate 4 09/12/22 07:39 BMI result Body Mass Index 36.3 Gen: in no acute distress HEENT: sclera anicteric, moist mucus membranes Neck: supple Lungs: clear to auscultation bilaterally Heart: regular rate and rhythm, no murmurs Abd: soft, non-tender, non-distended Ext: no edema Skin: shallow ulcer right lower leg medially, chronic venous stasis dermatitis Neuro: alert and oriented x3, no focal findings Psych: appropriate affect DS: Data Data Completed and Pending Completed studies during hospitalization [Text1]: Laboratory Results WBC 10.0 X10*3/uL (4.8-10.8) 09/11/22 06:22 RBC 4.66 X10*6/uL (4.20-5.50) 09/11/22 06:22 Hgb 12.3 g/dl (12.0-16.0) 09/11/22 06:22 Hct 39.2 % (37.0-47.0) 09/11/22 06:22 MCV 84.1 fL (80.0-98.0) 09/11/22 06:22 MCH 26.4 pg (27.0-33.0) L 09/11/22 06:22 MCHC 31.4 g/dl (31.0-35.0) 09/11/22 06:22 RDW 15.2 % (11.0-16.0) 09/11/22 06:22 Plt Count 225 X10*3/uL (160-400) 09/11/22 06:22 MPV 10.7 fL (9.4-12.3) 09/11/22 06:22 Immature Gran % (Auto) 0.6 % (0.0-0.4) H 09/11/22 06:22 Neut % (Auto) 61.6 % (45-73) 09/11/22 06:22 Lymph % (Auto) 26.2 % (20-40) 09/11/22 06:22 Nobles % (Auto) 8.5 % (2-11) 09/11/22 06:22 Eos % (Auto) 2.9 % (0-4) 09/11/22 06:22 Baso % (Auto) 0.2 % (0-2) 09/11/22 06:22 Lymph # (Auto) 2.6 X10*3/uL (1.2-4.9) 09/11/22 06:22 Nobles # (Auto) 0.9 X10*3/uL (0.1-1.2) 09/11/22 06:22 Eos # (Auto) 0.3 X10*3/uL (0.0-0.4) 09/11/22 06:22 Baso # (Auto) 0.0 X10*3/uL (0.0-0.2) 09/11/22 06:22 Abs Immat Gran (auto) 0.06 X10*3/uL (0.00-0.03) H 09/11/22 06:22 Absolute Neuts (auto) 6.2 x10*3/uL (2.0-8.3) 09/11/22 06:22 Absolute Nucleated RBC 0.000 X10*3/uL (0.0-0.012) 09/11/22 06:22 Nucleated RBC % (auto) 0.0 /100WBC (0.0-0.2) 09/11/22 06:22 D-Dimer High Sensitivty < 150 NG/ML 09/10/22 11:29 Sodium 143 mmol/L (135-145) 09/13/22 05:17 Potassium 3.7 mmol/L (3.3-5.1) 09/13/22 05:17 Chloride 102 mmol/L (96-108) 09/13/22 05:17 Carbon Dioxide 31 mmol/L (22-29) H 09/13/22 05:17 Anion Gap 14 (12-20) 09/13/22 05:17 BUN 12 mg/dL (9-16) 09/13/22 05:17 Creatinine 0.75 mg/dL (0.5-1.4) 09/13/22 05:17 Estim Creat Clear Calc 76.9 09/13/22 05:17 Estimated GFR > 60 09/13/22 05:17 POC Glucose 162 mg/dL (60-115) H 09/13/22 11:14 Random Glucose 114 mg/dL (60-115) 09/13/22 05:17 Lactic Acid 1.9 mmol/L (0.5-2.0) 09/10/22 11:28 Calcium 9.8 mg/dL (8.4-10.2) 09/13/22 05:17 Magnesium 1.7 mg/dL (1.6-2.6) 09/13/22 05:17 Total Bilirubin 0.6 mg/dL (0.0-1.0) 09/10/22 11:29 AST 16 U/L (5-31) 09/10/22 11:29 ALT 12 U/L (0-31) 09/10/22 11:29 Alkaline Phosphatase 106 U/L (39-117) 09/10/22 11:29 Troponin I High Sens 52.2 ng/L (<3.5-17.0) H* 09/10/22 14:27 B-Natriuretic Peptide 142 pg/mL (<100) H 09/10/22 11:29 Total Protein 6.7 g/dL (6.5-8.0) 09/10/22 11:29 Albumin 3.8 g/dL (3.5-5.0) 09/10/22 11:29 COVID-19 (AYANNA) Negative (Negative) 09/10/22 10:26 COVID-19 Clin Com See Note 09/10/22 10:26 Influenza Type A (AR) Negative (Negative) 09/10/22 10:26 Influenza Type B (AR) Negative (Negative) 09/10/22 10:26 Influenza A & B Note See Note 09/10/22 10:26 Impressions Chest X-Ray 09/10/22 10:50 IMPRESSION: * Mild vascular congestion. * Diminished lung volume. * No dense focal consolidation pneumonia. * Widened mediastinum exaggerated by AP technique. Chest CT 09/10/22 13:21 IMPRESSION: * Diminished lung volume. * Pulmonary vascular congestion. No significant edema or pleural effusion. * Cardiomegaly. * Coronary calcification. Other noncritical findings as above. Discharge Plan Discharge Anticipated Discharge Date/Time: 09/13/22 13:49 Patient Disposition: Home Health Service Discharge Diagnosis: chest pain low magnesium Referrals: Micheal Biggs PA-C [Primary Care Provider] - 1 Week Discharge Medications: New magnesium oxide 400 mg (241.3 mg magnesium) Tablet 800 mg PO BIDPC Qty: 120 0RF Continued (DME) Chair, shower Misc See Rx Instructions .ROUTE .MEDSUPPLY Qty: 1 0RF Rx Instructions: As directed (DME) blood-glucose meter [FreeStyle Lite Meter] Kit See Rx Instructions .Route Qty: 1 0RF Rx Instructions: As directed (DME) lancing device with lancets Kit See Rx Instructions .Route Qty: 1 0RF Rx Instructions: As directed losartan 100 mg tablet 100 mg PO DAILY Qty: 90 1RF Pradaxa 150 mg capsule 150 mg PO BID 90 Days Qty: 180 1RF flecainide 100 mg tablet 100 mg PO BID Qty: 180 1RF hydroxyzine HCl 10 mg tablet 10 mg PO BEDTIME PRN (Reason: insomnia) Qty: 7 0RF clotrimazole-betamethasone 1-0.05 % cream 1 appl topical BID 30 Days Qty: 45 3RF (DME) compr.stocking,knee,long,x-lrg Misc See Rx Instructions .Route Qty: 12 0RF Rx Instructions: As directed acetaminophen 500 mg capsule 500 mg PO Q6H PRN (Reason: pain) Qty: 20 0RF albuterol sulfate 90 mcg/actuation HFA aerosol inhaler 2 puff PO Q4-6H PRN (Reason: bronchospasm) 90 Days Qty: 90 1RF furosemide 40 mg tablet 40 mg PO DAILY 90 Days Qty: 90 2RF colchicine [Colcrys] 0.6 mg tablet 0.6 mg PO DAILY Qty: 90 2RF simvastatin 40 mg tablet 40 mg PO BEDTIME Qty: 90 2RF Januvia 50 mg tablet 50 mg PO DAILY 90 Days Qty: 90 3RF isosorbide mononitrate 30 mg tablet extended release 24 hr 30 mg PO DAILY 90 Days Qty: 90 2RF (DME) lancets [FreeStyle Lancets] 28 gauge misc See Rx Instructions .ROUTE .MEDSUPPLY Qty: 100 3RF Rx Instructions: As directed atenolol 50 mg tablet 50 mg PO DAILY Qty: 30 3RF latanoprost 0.005 % drops 1 drp ophthalmic (eye) BEDTIME polyethylene glycol 3350 [Miralax] 17 gram/dose powder 17 g PO BID PRN (Reason: Constipation) Simbrinza 1-0.2 % drops,suspension 1 drp ophthalmic (eye) BID gabapentin 400 mg capsule 400 mg PO BID PRN (Reason: Pain) docusate sodium 100 mg capsule 100 mg PO BID oxycodone 5 mg tablet 5 mg PO BID PRN (Reason: Pain) insulin aspart U-100 [Novolog FlexPen U-100 Insulin] 100 unit/mL (3 mL) insulin pen See Protocol subcut TIDAC PRN (Reason: Hyperglycemia) Protocol: Insulin Correction Scale Less than or equal to 110 ---- Give (units): 0 111 to 150 Give (units): 0 151 to 200 Give (units): 2 201 to 250 Give (units): 4 251 to 300 Give (units): 6 301 to 350 Give (units): 8 Greater than 350 Give (units): 10 Call MD if Blood Glucose > : 350 Rx Instructions: Per sliding scale 0-24 units (DME) blood sugar diagnostic Strip See Rx Instructions Not Applicable QID Qty: 10 Rx Instructions: As directed (DME) blood pressure monitor [Blood Pressure Kit] Kit See Rx Instructions .ROUTE .MEDSUPPLY Qty: 1 0RF Rx Instructions: As directed (DME) humidifiers [Cool Mist Humidifier] Misc See Rx Instructions .ROUTE .MEDSUPPLY Qty: 1 0RF Rx Instructions: As directed (DME) comp.stocking,thigh,long,x-lrg Misc See Rx Instructions .Route Qty: 2 0RF Rx Instructions: As directed (DME) walker Misc See Rx Instructions .Route Rx Instructions: As directed (DME) Ultra-Light Rollator Misc See Rx Instructions .Route Qty: 1 0RF Rx Instructions: As directed Tresiba FlexTouch U-100 100 unit/mL (3 mL) insulin pen 65 unit subcut BID 30 Days Qty: 39 6RF (DME) lancets [FreeStyle Lancets] 28 gauge misc See Rx Instructions .ROUTE .MEDSUPPLY Qty: 100 3RF Rx Instructions: As directed omeprazole 20 mg capsule,delayed release(DR/EC) 20 mg PO DAILY Qty: 30 3RF nystatin 100,000 unit/gram powder 1 appl topical TID PRN (Reason: rash) Qty: 60 0RF Discharge Orders: Discharge Order (Routine); Ordered 09/13/22 Ordered By: Jamal De La O Diet: Advance to usual diet Activity on Discharge: As tolerated Stand Alone Forms: Patient Portal Discharge page Other Ambulatory Orders: Magnesium (Routine) Timeframe: 1 Week Facility: [facility] - Location: Laboratory Ordered By: Jamal De La O Care Plan Goals: cardiac health Health Concerns: chest pain low magnesium Plan of Treatment: not acute coronary syndrome follow up with your loan documentation specialist at [facility] take magnesium 800 mg twice daily recheck magnesium level in 1 week Please follow up with your primary care doctor within 1 week. Return to the hospital if you experience recurrent or worsening symptoms. Assessment: See Discharge Summary.
--- NOTE | 2022-09-13 15:08 | MHC.CM.PN ---
Addendum entered by Yasmin Jaeger RN 09/13/22 15:25: IMM 09/13 IN CHART Original Note: PATIENT IS DC HOME WITH RESUMPTION OF HER [facility] SERVICES FAMILY AWARE
--- NOTE | 2022-09-15 16:21 | P.CDIM_ITS ---
PROVIDER RESPONSE TEXT: To clarify, the appropriate diagnosis supported by the clinical indicators: Pressure (decubitus) ulcer/injury Stage 2 bilateral buttocks, present on arrival, resolved. QUERY TEXT: PHYSICIAN'S DOCUMENTATION REQUEST Date of Query: 09/13/2022 12:14 PM EDT Patient Name: Lizzie Lemus Admit Date: 09/11/2022 Dear Jamal De La O, A review of the medical record indicates additional documentation may be needed. Please review below and update the documentation accordingly. Clinical Indicators: Wound assessment nursing notes dated 09/10, & 09/12 - Pressure injury Stage 2 b/l buttocks, SHARONDA, Ba rrier cream, triad applied. Wound assessment nursing notes dated 09/13 - Pressure injury/ulcer/wound Stage 2 b/l buttocks - resolve d. Based on the above, could you please provide further information regarding the ulcer/wound: Pressure (decubitus) ulcer/injury Stage 2 bilateral buttocks, present on arrival, resolved. Other Unable to determine Other (explain) Clinically unable to determine (explain) Thank you, Kylah Pires, CCS, CDIS Use of terms such as suspected, likely, concern for, or probable (associated with a specific diagnosi s that is being evaluated, monitored, or treated as if it exists) are acceptable and can be coded in the inpatient se tting, when documented at the time of discharge. Please use your independent medical judgment in providing your response. THIS QUERY IS PART OF THE PERMANENT MEDICAL RECORD
== END 2022-09-13 15:42 | disposition home health service (06) | DRG 313 ==
LOC: HO.ED 14:05 → HO.EDOVER 16:01 → HO.S3 16:14
PROVIDERS: Hospitalist; Physician Assistant; Admitting Provider Physician Assistant; Emergency Provider Emergency Medicine; PCP Physician Assistant; Visit Provider Family Medicine
DX: R07.9 Chest pain, unspecified (principal); I50.32 Chronic diastolic (congestive) heart failure; I42.9 Cardiomyopathy, unspecified; E83.42 Hypomagnesemia; J44.9 Chronic obstructive pulmonary disease, unspecified; M79.7 Fibromyalgia; F41.1 Generalized anxiety disorder; I25.10 Atherosclerotic heart disease of native coronary artery without angina pectoris; I11.0 Hypertensive heart disease with heart failure; E11.65 Type 2 diabetes mellitus with hyperglycemia; E11.42 Type 2 diabetes mellitus with diabetic polyneuropathy; E66.9 Obesity, unspecified; I48.0 Paroxysmal atrial fibrillation; L89.322 Pressure ulcer of left buttock, stage 2; L89.312 Pressure ulcer of right buttock, stage 2; Z68.36 Body mass index [BMI] 36.0-36.9, adult; Z20.822 Contact with and (suspected) exposure to COVID-19; Z95.0 Presence of cardiac pacemaker; Z88.1 Allergy status to other antibiotic agents; Z88.8 Allergy status to other drugs, medicaments and biological substances; Z79.01 Long term (current) use of anticoagulants; Z79.899 Other long term (current) drug therapy
CPT/HCPCS: 36415; 71045; 71260; 80048; 80053; 82947; 83605; 83735; 83880; 84484; 85025; 85379; 87040; 87502; 87635; 93005; 94640; 97162; 99285; J2270; J3475; Q9967

== ENCOUNTER 2022-09-20 09:27 | Outpatient (REF) | payer OTHER, SELFPAY ==
[2022-09-20 11:38] LABS: Hematocrit 39.5 % (37.0-47.0); Hemoglobin 12.6 g/dl (12.0-16.0); Mean Corpuscular HGB Conc 31.9 g/dl (31.0-35.0); Mean Corpuscular Volume 84.6 fL (80.0-98.0); Mean Platelet Volume 10.7 fL (9.4-12.3); Platelet Count 261 X10*3/uL (160-400); Red Blood Count 4.67 X10*6/uL (4.20-5.50); Red Cell Distribution Width 15.2 % (11.0-16.0); White Blood Count 10.4 X10*3/uL (4.8-10.8)
[2022-09-20 12:13] LABS: Estimated Average Glucose 200 mg/dL; Hemoglobin A1c % 8.6 %
[2022-09-20 12:15] LABS: TSH reflex Free T4 1.82 uIU/mL (0.32-4.0)
[2022-09-20 12:57] LABS: Alanine Aminotransferase 11 U/L (0-31); Albumin Level 3.9 g/dL (3.5-5.0); Alkaline Phosphatase 95 U/L (39-117); Anion Gap 12 (12-20); Aspartate Amino Transferase 16 U/L (5-31); Bilirubin Total 0.5 mg/dL (0.0-1.0); Blood Urea Nitrogen 18 mg/dL (9-16); Calcium 10.4 mg/dL (8.4-10.2); Carbon Dioxide 27 mmol/L (22-29); Chloride 105 mmol/L (96-108); Cholesterol 146 mg/dL; Estimated Glomerular Filt Rate > 60; Glucose Fasting 118 mg/dL (60-99); HDL Cholesterol 41 mg/dL; LDL Cholesterol Calculated 80 mg/dl; Potassium 4.4 mmol/L (3.3-5.1); Sodium 140 mmol/L (135-145); Total Protein 6.5 g/dL (6.5-8.0); Triglycerides 129 mg/dL
== END 2022-09-20 09:28 | disposition home or self-care (01) ==
LOC: HO.HMGCLDS 09:27
PROVIDERS: Family Medicine; PCP Physician Assistant; Visit Provider Physician Assistant
DX: E83.42 Hypomagnesemia (principal); E11.42 Type 2 diabetes mellitus with diabetic polyneuropathy; Z79.4 Long term (current) use of insulin
CPT/HCPCS: 36415; 80053; 80061; 83036; 83735; 84443; 85027

== ENCOUNTER 2022-10-18 07:21 | Emergency (ER) | payer OTHER, SELFPAY ==
[2022-10-18 07:23] VITALS: BP 100/60; BP 145/74; PULSE 80; RESP 16; TEMP 36.5; O2SAT 100; O2SAT 96; BMI 46.3
--- NOTE | 2022-10-18 07:48 | ED_ITS ---
HPI - General Adult General Chief complaint: General Medical Stated complaint: BACK PAIN X1 WEEK PER EMS Time Seen by Provider: 10/18/22 07:22 Source: patient, EMS and old records reviewed Mode of arrival: EMS Limitations: no limitations History of Present Illness HPI narrative: 77 yo female with PMH of type 2 diabetes, renal mass, COPD, CHF, HTN, GERD, CAD, fibromyalgia, diabetic polyneuropathy, chronic low back pain, hyperlipidemia, paroxysmal atrial fibrillation anticoagulated with Pradaxa, bipolar disorder, and uses a walker at home comes in with dysuria despite treatment with macrobid for the last 4 days (hx of proteus 2020 resistant to macrobid) c/o worsening chronic low back pain no b/b incontinence no saddle anesthesia no change from baseline pain, and bilateral leg itching - hx of same in past. No fevers, n/v/d. MD complaint: back pain, itchy legs, dysuria Onset (ago): day(s) (few) Location: back and lower extremity Radiation: non-radiation Severity: moderate Quality: aching Pain Consistency: constant Relieving factors: none Exacerbating factors: movement Associated symptoms: other (itchy legs, dysuria) Treatments prior to arrival: none Related Data Home Medications Medication Instructions Recorded Confirmed blood sugar diagnostic #10 ea 03/12/20 10/06/22 brinzolamide 1 %-brimonidine 0.2 % 1 drp ophthalmic (eye) BID 04/24/21 10/06/22 eye drops,suspension (Simbrinza) latanoprost 0.005 % eye drops 1 drp ophthalmic (eye) BEDTIME 04/24/21 10/06/22 polyethylene glycol 3350 17 17 g PO BID PRN Constipation 04/24/21 10/06/22 gram/dose oral powder (Miralax) docusate sodium 100 mg capsule 100 mg PO BID 09/10/22 10/06/22 gabapentin 400 mg capsule 400 mg PO BID PRN Pain 09/10/22 10/06/22 insulin aspart U-100 100 unit/mL See Protocol subcut TIDAC PRN 09/10/22 10/06/22 (3 mL) subcutaneous pen (Novolog Hyperglycemia FlexPen U-100 Insulin aspart) Previous Rx's Medication Instructions Recorded blood pressure monitor (Blood #1 ea 03/12/20 Pressure Kit) humidifiers (Cool Mist Humidifier) #1 ea 03/12/20 Shower Chair (Chair, shower) #1 ea 09/14/20 walker (Ultra-Light Rollator misc) #1 ea 06/30/21 blood-glucose meter (FreeStyle #1 ea 07/12/21 Lite Meter kit) lancing device with lancets kit #1 ea 03/24/22 losartan 100 mg tablet 100 mg PO DAILY #90 tabs 05/11/22 dabigatran etexilate 150 mg 150 mg PO BID 90 days #180 caps 05/12/22 capsule (Pradaxa) nystatin 100,000 unit/gram topical 1 appl topical TID PRN rash #60 06/09/22 powder grams omeprazole 20 mg capsule,delayed 20 mg PO DAILY #30 caps 06/09/22 release compr.stocking,knee,long,x-lrg #12 ea 06/22/22 acetaminophen 500 mg capsule 500 mg PO Q6H PRN pain #20 caps 07/08/22 colchicine 0.6 mg tablet (Colcrys) 0.6 mg PO DAILY #90 tabs 07/08/22 furosemide 40 mg tablet 40 mg PO DAILY 90 days #90 tabs 07/08/22 isosorbide mononitrate 30 mg 30 mg PO DAILY 90 days #90 tabs 07/08/22 tablet,extended release 24 hr simvastatin 40 mg tablet 40 mg PO BEDTIME #90 tabs 07/08/22 sitagliptin phosphate 50 mg tablet 50 mg PO DAILY 90 days #90 tabs 07/08/22 (Januvia) lancets 28 gauge (FreeStyle #100 ea 07/14/22 Lancets) atenolol 50 mg tablet 50 mg PO DAILY #30 tabs 08/11/22 magnesium oxide 400 mg (241.3 mg 800 mg PO BIDPC #120 tabs 09/13/22 magnesium) tablet albuterol sulfate 90 mcg/actuation 2 puff PO Q4-6H PRN bronchospasm 09/14/22 aerosol inhaler 90 days #90 grams amitriptyline 25 mg tablet 25 mg PO BEDTIME 30 days #30 tabs 09/14/22 flecainide 100 mg tablet 100 mg PO BID #180 tabs 09/14/22 starch (thickening) (Diafoods 1 ea PO QID PRN dysphagia 90 days 09/14/22 Thick-It oral powder packet) #200 ea insulin degludec 100 unit/mL (3 70 unit (0.7 mL) subcut BID 30 09/20/22 mL) subcutaneous pen (Tresiba days #42 mL FlexTouch U-100 insulin) miscellaneous medical supply 1 ea miscellaneous DAILY 99 days 09/22/22 #2 ea cefuroxime axetil 250 mg tablet 250 mg PO BID 7 days #14 tabs 09/28/22 ciprofloxacin 0.3 %-dexamethasone 4 drp otic (ears) BID 7 days #7.5 09/28/22 0.1 % ear drops,suspension mL (Ciprodex) clotrimazole 2 % vaginal cream 1 appful vaginal BEDTIME 3 days 10/05/22 #21 grams blood sugar diagnostic (FreeStyle #100 ea 10/06/22 Lite Strips) cetirizine 10 mg tablet 10 mg PO DAILY allergy symptoms 30 10/06/22 days #30 tabs clotrimazole-betamethasone 1 1 appl topical BID 30 days #45 10/06/22 %-0.05 % topical cream grams fluticasone propionate 50 1 spray intranasal BID 30 days #16 10/06/22 mcg/actuation nasal grams spray,suspension (Flonase Allergy Relief) oxycodone 5 mg tablet 5 mg PO BID Pain 30 days #60 tabs 10/06/22 blood sugar diagnostic (OneTouch #100 ea 10/07/22 Ultra Test strips) blood-glucose meter (OneTouch #1 ea 10/07/22 Ultra2 Meter) lancets 30 gauge (OneTouch #200 ea 10/07/22 UltraSoft 2 Lancet) pen needle, diabetic 32 gauge x #300 ea 10/17/22 (BD Laury 2nd Gen Pen Needle) hydrocortisone 1 % topical cream 1 appl topical BID PRN itching 10/18/22 (Cortisone (hydrocortisone)) #28.4 grams Allergies Allergy/AdvReac Type Severity Reaction Status Date / Time dapagliflozin [From [facility]] Allergy Unknown yeast Verified 10/06/22 15:24 infection metformin Allergy Unknown Diarrhea Verified 10/06/22 15:24 amitriptyline AdvReac Intermediate Anxiety Verified 10/06/22 15:24 clindamycin AdvReac Mild Itching Verified 10/06/22 15:24 Review of Systems Review of Systems: Constitutional : No Weight loss, No Fever, No Chills, ENT/Mouth : No Hearing loss, No Ear Pain, No Nasal Congestion, No Sinus Pain, No Hoarseness, No sore throat, No Rhinorrhea, No Swallowing Difficulty Cardiovascular : No Chest Pain, No SOB Respiratory : No Cough, No Dyspnea Gastrointestinal : No Nausea, No Vomiting, No Diarrhea, No abdominal Pain, No Hematochezia, No Melena Genitourinary : pos Dysuria, No Urinary Frequency, No Hematuria, No Urinary Incontinence, Musculoskeletal : positive back pain Skin : No Skin Lesions, pos rash Neuro : No Weakness, No Numbness, No Paresthesias, no loss of bowel or bladder incontinence, no saddle anesthesia [facility] Past Medical History Attestation statement: The following information was validated with the patient. Medical History Afib Arthritis COPD (chronic obstructive pulmonary disease) Coronary artery disease Decompensated heart failure Fibromyalgia Foot ulcer NADEGE (generalized anxiety disorder) GERD (gastroesophageal reflux disease) HTN (hypertension) Insulin dependent type 1 diabetes mellitus Mass of right kidney Pacemaker Unstable angina URI (upper respiratory infection) Surgical History History of cataract surgery History of pacemaker Family History Family History Father No problems noted. Mother No problems noted. 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, [employer]) Alcohol intake: never Patient Tobacco Use Status: Never used Tobacco Smoked in Last 30 Days: No e-Cigarette/Vaping Use: Never Used Second Hand Smoke Exposure: No Use of substances other than those prescribed or required for medical reasons: No Advance Directives: Yes Advance Directives on File: Yes Advance Directives Date on File: 06/17/20 service: No Current occupational status: retired and disabled Cognitive needs: Yes Hearing needs: No Vision needs: Yes Physical Exam ED Vital Signs: Vital Signs - 24 hr 10/18/22 07:23 Temperature 97.7 F Pulse Rate 80 Respiratory Rate 16 Blood Pressure 145/74 H Pulse Oximetry 96 Oxygen Delivery Method Room Air BMI result Body Mass Index 46.3 Appearance: Alert. Oriented X3. No acute distress. Eyes: Pupils equal, round and reactive to light. ENT: Pharynx normal. Neck: Normal inspection. Neck supple. CVS: Normal heart rate and rhythm. Pulses normal. Respiratory: No respiratory distress. Breath sounds normal. Abdomen: Soft and nontender. Obese Back: lower lumbar ttp reproduces pain Skin: Skin warm and dry. Normal skin color. shiny non erythematous it is pink, it is not warm to touch no ttp and no purulence. Extremities: 1- 2+ pitting lower extremity edema. Neuro: Oriented X 3. No motor deficit. No sensory deficit. SILT inner thigh. Course Course Course Narrative: labs reassuring - no signs of UTI at this time suspect she can go home, will try ambulation trial. has small pressure ulcers on buttocks no signs of secondary infection refusing morphine, will trial ambulation. can ambulate at baseline at this time will continue macrobid, start on ammonium lactate, refer to wound care center. Medications Administered Discontinued Medications Generic Name Dose Route Start Last Admin Trade Name Freq PRN Reason Stop Dose Admin Lactic Acid 1 appl 10/18/22 07:34 10/18/22 09:41 Ammonium Lactate 12 % Lotion 226 Gm Bottle TOPICAL 10/18/22 07:35 1 appl ONCE ONE Administration Protocol Lidocaine 1 patch 10/18/22 07:33 10/18/22 09:01 Lidocaine 4 % Patch Adh..Patch TRANSDERMA 10/18/22 07:34 1 patch ONCE ONE Administration Protocol Morphine Sulfate 15 mg 10/18/22 07:33 10/18/22 09:02 Morphine Sulfate Immed Release 15 Mg Tablet PO 10/18/22 07:34 Not Given ONCE ONE Medical Decision Making Medical Decision Making MDM Narrative: 77 yo female with PMH of type 2 diabetes, renal mass, COPD, CHF, hypertension, GERD, coronary artery disease, fibromyalgia, diabetic polyneuropathy, chronic low back pain, hyperlipidemia, paroxysmal atrial fibrillation on Pradaxa, bipolar disorder, and uses walker at home. States she was just treated for UTI with macrobid has 3 days left. She notes it still hurts to urinate. Has hx of proteus UTI in the past R to macrobid (S to ceftriaxone). She notes lower back pain but no fevers, n/v. No loss of control of bowel or bladder incontinence no saddle anesthesia to suggest CE, pain is chronic doubt retroperitoneal hematoma. Also c/o lower leg itching - she has some 1+ swelling and pink shiny skin that is not warm I do not suspect cellulitis this is venous statis dermatitis - ammonium lactate ordered. Labs, BNP, UA - PO morphine ordered for pain. Differential Diagnosis Differential Diagnoses: The differential diagnosis associated with the pr esentation includes chronic back pain, venous stasis dermatitis, poor conditionin, UTI, pyelonephritis, back pain unchanged from prior doubt retroperitoneal hematoma Lab Data MDM Lab Attestation statement: I reviewed the patient's lab results. 10/18/22 07:51 10/18/22 07:51 Labs: Lab Results 10/18/22 10/18/22 10/18/22 Range/Units 07:51 07:51 07:51 WBC 8.8 (4.8-10.8) X10*3/uL RBC 4.93 (4.20-5.50) X10*6/uL Hgb 13.2 (12.0-16.0) g/dl Hct 41.3 (37.0-47.0) % MCV 83.8 (80.0-98.0) fL MCH 26.8 L (27.0-33.0) pg MCHC 32.0 (31.0-35.0) g/dl RDW 14.6 (11.0-16.0) % Plt Count 211 (160-400) X10*3/uL MPV 9.9 (9.4-12.3) fL Immature Gran % (Auto) 0.5 H (0.0-0.4) % Neut % (Auto) 73.2 H (45-73) % Lymph % (Auto) 18.0 L (20-40) % Ceiba % (Auto) 6.9 (2-11) % Eos % (Auto) 1.3 (0-4) % Baso % (Auto) 0.1 (0-2) % Lymph # (Auto) 1.6 (1.2-4.9) X10*3/uL Ceiba # (Auto) 0.6 (0.1-1.2) X10*3/uL Eos # (Auto) 0.1 (0.0-0.4) X10*3/uL Baso # (Auto) 0.0 (0.0-0.2) X10*3/uL Abs Immat Gran (auto) 0.04 H (0.00-0.03) X10*3/uL Absolute Neuts (auto) 6.4 (2.0-8.3) x10*3/uL Absolute Nucleated RBC 0.000 (0.0-0.012) X10*3/uL Nucleated RBC % (auto) 0.0 (0.0-0.2) /100WBC Sodium 143 (135-145) mmol/L Potassium 4.1 (3.3-5.1) mmol/L Chloride 107 (96-108) mmol/L Carbon Dioxide 27 (22-29) mmol/L Anion Gap 13 (12-20) BUN 18 H (9-16) mg/dL Creatinine 0.73 (0.5-1.4) mg/dL Estim Creat Clear Calc 83.3 Estimated GFR > 60 POC Glucose (60-115) mg/dL Random Glucose 111 (60-115) mg/dL Calcium 10.1 (8.4-10.2) mg/dL Magnesium 1.9 (1.6-2.6) mg/dL Total Bilirubin 0.6 (0.0-1.0) mg/dL Direct Bilirubin 0.2 (0.0-0.5) mg/dL AST 13 (5-31) U/L ALT 11 (0-31) U/L Alkaline Phosphatase 98 (39-117) U/L B-Natriuretic Peptide 109 H (<100) pg/mL Total Protein 6.5 (6.5-8.0) g/dL Albumin 3.8 (3.5-5.0) g/dL Lipase 42 (8-78) U/L Urine Color Urine Appearance Urine pH (5.0-9.0) Ur Specific [place] (1.005-1.025) Urine Protein (Neg-Trace) mg/dL Urine Glucose (UA) (Negative) mg/dL Urine Ketones (Negative) mg/dL Urine Blood (Negative) Urine Nitrite (Negative) Ur Leukocyte Esterase (Negative) 06/06/23 06/06/23 Range/Units 07:51 08:09 WBC (4.8-10.8) X10*3/uL RBC (4.20-5.50) X10*6/uL Hgb (12.0-16.0) g/dl Hct (37.0-47.0) % MCV (80.0-98.0) fL MCH (27.0-33.0) pg MCHC (31.0-35.0) g/dl RDW (11.0-16.0) % Plt Count (160-400) X10*3/uL MPV (9.4-12.3) fL Immature Gran % (Auto) (0.0-0.4) % Neut % (Auto) (45-73) % Lymph % (Auto) (20-40) % Ceiba % (Auto) (2-11) % Eos % (Auto) (0-4) % Baso % (Auto) (0-2) % Lymph # (Auto) (1.2-4.9) X10*3/uL Ceiba # (Auto) (0.1-1.2) X10*3/uL Eos # (Auto) (0.0-0.4) X10*3/uL Baso # (Auto) (0.0-0.2) X10*3/uL Abs Immat Gran (auto) (0.00-0.03) X10*3/uL Absolute Neuts (auto) (2.0-8.3) x10*3/uL Absolute Nucleated RBC (0.0-0.012) X10*3/uL Nucleated RBC % (auto) (0.0-0.2) /100WBC Sodium (135-145) mmol/L Potassium (3.3-5.1) mmol/L Chloride (96-108) mmol/L Carbon Dioxide (22-29) mmol/L Anion Gap (12-20) BUN (9-16) mg/dL Creatinine (0.5-1.4) mg/dL Estim Creat Clear Calc Estimated GFR POC Glucose 127 H (60-115) mg/dL Random Glucose (60-115) mg/dL Calcium (8.4-10.2) mg/dL Magnesium (1.6-2.6) mg/dL Total Bilirubin (0.0-1.0) mg/dL Direct Bilirubin (0.0-0.5) mg/dL AST (5-31) U/L ALT (0-31) U/L Alkaline Phosphatase (39-117) U/L B-Natriuretic Peptide (<100) pg/mL Total Protein (6.5-8.0) g/dL Albumin (3.5-5.0) g/dL Lipase (8-78) U/L Urine Color Yellow Urine Appearance Clear Urine pH 6.0 (5.0-9.0) Ur Specific [place] <= 1.005 (1.005-1.025) Urine Protein Negative (Neg-Trace) mg/dL Urine Glucose (UA) Negative (Negative) mg/dL Urine Ketones Negative (Negative) mg/dL Urine Blood Negative (Negative) Urine Nitrite Negative (Negative) Ur Leukocyte Esterase Negative (Negative) Independent Interpretation I performed an independent interpretation of an: CT Scan Radiology Impression Discussion of test interpretation with radiology: I have reviewed the radiologist's reading. Independent Historian Clinical information obtained from an independent historian. History obtained from or confirmed by: EMS External Record Review External record reviewed: Inpatient record Chronic Conditions Patient?s care impacted by: Diabetes and Other (chronic back pain) Discharge Plan Discharge Clinical Impression: Venous stasis dermatitis Qualifiers: Laterality: bilateral Qualified Code(s): I87.2 - Venous insufficiency (chronic) (peripheral) Chronic back pain Qualifiers: Back pain location: low back pain Back pain laterality: bilateral Sciatica presence: without sciatica Qualified Code(s): M54.50 - Low back pain, unspecified Patient Disposition: Home, Self-Care Instructions: Chronic Back Pain (DC), Dermatitis (ED) Additional Instructions: your labs and urine were normal. your legs need ointment this is due to poor venous circulation this is not an infection. return for numbness, weakness, fevers, vomiting or any other concerns. continue the antibiotic for your urine. follow up with your doctor and contact the wound care center [facility] normales. tus piernas necesitan chidi?ento esto se debe a rancho ruma circulaci?n venosa esto no es rancho infecci?n. regrese por entumecimiento, debilidad, fiebre, v?mitos o cualquier otra inquietud. contin?e el antibi?christian para kevin orina. francisca un seguimiento con kevin m?dico y comun?quese con el centro de cuidado de heridas Prescriptions: New hydrocortisone [Cortisone (hydrocortisone)] 1 % cream 1 appl topical BID PRN (Reason: itching) Qty: 28.4 0RF No Action (DME) Chair, shower Misc See Rx Instructions .ROUTE .MEDSUPPLY Qty: 1 0RF Rx Instructions: As directed (DME) blood-glucose meter [FreeStyle Lite Meter] Kit See Rx Instructions .Route Qty: 1 0RF Rx Instructions: As directed (DME) lancing device with lancets Kit See Rx Instructions .Route Qty: 1 0RF Rx Instructions: As directed losartan 100 mg tablet 100 mg PO DAILY Qty: 90 1RF Pradaxa 150 mg capsule 150 mg PO BID 90 Days Qty: 180 1RF (DME) compr.stocking,knee,long,x-lrg Misc See Rx Instructions .Route Qty: 12 0RF Rx Instructions: As directed acetaminophen 500 mg capsule 500 mg PO Q6H PRN (Reason: pain) Qty: 20 0RF furosemide 40 mg tablet 40 mg PO DAILY 90 Days Qty: 90 2RF colchicine [Colcrys] 0.6 mg tablet 0.6 mg PO DAILY Qty: 90 2RF simvastatin 40 mg tablet 40 mg PO BEDTIME Qty: 90 2RF Januvia 50 mg tablet 50 mg PO DAILY 90 Days Qty: 90 3RF isosorbide mononitrate 30 mg tablet extended release 24 hr 30 mg PO DAILY 90 Days Qty: 90 2RF (DME) lancets [FreeStyle Lancets] 28 gauge misc See Rx Instructions .ROUTE .MEDSUPPLY Qty: 100 3RF Rx Instructions: As directed atenolol 50 mg tablet 50 mg PO DAILY Qty: 30 3RF insulin degludec [Tresiba FlexTouch U-100] 100 unit/mL (3 mL) insulin pen 70 unit subcut BID 30 Days Qty: 42 6RF miscellaneous medical supply Misc 1 ea miscellaneous DAILY 99 Days Qty: 2 0RF clotrimazole 2 % cream 1 appful vaginal BEDTIME 3 Days Qty: 21 1RF (DME) blood-glucose meter [OneTouch Ultra2 Meter] [facility] See Rx Instructions .Route Qty: 1 0RF Rx Instructions: test 3 times a day (DME) OneTouch Ultra Test Strip See Rx Instructions .Route Qty: 100 5RF Rx Instructions: test 3x's per day (DME) lancets [OneTouch UltraSoft 2 Lancet] 30 gauge misc See Rx Instructions .Route Qty: 200 5RF Rx Instructions: test 3x's per day (DME) pen needle, diabetic [BD Laury 2nd Gen Pen Needle] 32 gauge x 5/32 needle See Rx Instructions .Route Qty: 300 3RF Rx Instructions: Use to inject insulin 4 times per day latanoprost 0.005 % drops 1 drp ophthalmic (eye) BEDTIME polyethylene glycol 3350 [Miralax] 17 gram/dose powder 17 g PO BID PRN (Reason: Constipation) Simbrinza 1-0.2 % drops,suspension 1 drp ophthalmic (eye) BID gabapentin 400 mg capsule 400 mg PO BID PRN (Reason: Pain) docusate sodium 100 mg capsule 100 mg PO BID insulin aspart U-100 [Novolog FlexPen U-100 Insulin] 100 unit/mL (3 mL) insulin pen See Protocol subcut TIDAC PRN (Reason: Hyperglycemia) Protocol: Insulin Correction Scale Less than or equal to 110 ---- Give (units): 0 111 to 150 Give (units): 0 151 to 200 Give (units): 2 201 to 250 Give (units): 4 251 to 300 Give (units): 6 301 to 350 Give (units): 8 Greater than 350 Give (units): 10 Call MD if Blood Glucose > : 350 Rx Instructions: Per sliding scale 0-24 units magnesium oxide 400 mg (241.3 mg magnesium) Tablet 800 mg PO BIDPC Qty: 120 0RF (DME) blood sugar diagnostic Strip See Rx Instructions Not Applicable QID Qty: 10 Rx Instructions: As directed (DME) blood pressure monitor [Blood Pressure Kit] Kit See Rx Instructions .ROUTE .MEDSUPPLY Qty: 1 0RF Rx Instructions: As directed (DME) humidifiers [Cool Mist Humidifier] Misc See Rx Instructions .ROUTE .MEDSUPPLY Qty: 1 0RF Rx Instructions: As directed (DME) Ultra-Light Rollator Misc See Rx Instructions .Route Qty: 1 0RF Rx Instructions: As directed omeprazole 20 mg capsule,delayed release(DR/EC) 20 mg PO DAILY Qty: 30 3RF nystatin 100,000 unit/gram powder 1 appl topical TID PRN (Reason: rash) Qty: 60 0RF amitriptyline 25 mg tablet 25 mg PO BEDTIME 30 Days Qty: 30 3RF albuterol sulfate 90 mcg/actuation HFA aerosol inhaler 2 puff PO Q4-6H PRN (Reason: bronchospasm) 90 Days Qty: 90 1RF flecainide 100 mg tablet 100 mg PO BID Qty: 180 1RF Diafoods Thick-It Powder In Packet 1 ea PO QID PRN (Reason: dysphagia) 90 Days Qty: 200 1RF (DME) FreeStyle Lite Strips Strip See Rx Instructions .ROUTE .MEDSUPPLY Qty: 100 3RF Rx Instructions: As directed clotrimazole-betamethasone 1-0.05 % cream 1 appl topical BID 30 Days Qty: 45 3RF cetirizine 10 mg tablet 10 mg PO DAILY 30 Days Qty: 30 1RF oxycodone 5 mg tablet 5 mg PO BID 30 Days Qty: 60 0RF fluticasone propionate [Flonase Allergy Relief] 50 mcg/actuation spray,suspension 1 spray intranasal BID 30 Days Qty: 16 0RF Rx Instructions: administer into each nostril ciprofloxacin-dexamethasone [Ciprodex] 0.3-0.1 % drops,suspension 4 drp otic (ears) BID 7 Days Qty: 7.5 0RF cefuroxime axetil 250 mg tablet 250 mg PO BID 7 Days Qty: 14 0RF Referrals: Pauline Chua MD [Physician] - (any provider call to get appointment) Print Language: Syriac
[2022-10-18 07:57] LABS: MANUAL DIFF FLAG NO
[2022-10-18 08:01] LABS: Basophils Percent Auto 0.1 % (0-2); Eosinophils Absolute Auto 0.1 X10*3/uL (0.0-0.4); Eosinophils Percent Auto 1.3 % (0-4); Hematocrit 41.3 % (37.0-47.0); Hemoglobin 13.2 g/dl (12.0-16.0); Imm Gran Abs Auto 0.04 X10*3/uL (0.00-0.03); Imm Gran Pct Auto 0.5 % (0.0-0.4); Lymphocytes Absolute Auto 1.6 X10*3/uL (1.2-4.9); Mean Corpuscular Hemoglobin 26.8 pg (27.0-33.0); Mean Corpuscular Volume 83.8 fL (80.0-98.0); Mean Platelet Volume 9.9 fL (9.4-12.3); Monocytes Absolute Auto 0.6 X10*3/uL (0.1-1.2); Monocytes Percent Auto 6.9 % (2-11); Neutrophils Absolute Auto 6.4 x10*3/uL (2.0-8.3); Neutrophils Percent Auto 73.2 % (45-73); Platelet Count 211 X10*3/uL (160-400); Red Blood Count 4.93 X10*6/uL (4.20-5.50); Red Cell Distribution Width 14.6 % (11.0-16.0); White Blood Count 8.8 X10*3/uL (4.8-10.8)
[2022-10-18 08:13] LABS: Glucose, Whole Blood 127 mg/dL (60-115)
[2022-10-18 08:14] LABS: Appearance Urine Clear; Color Urine Yellow; Glucose Urine UA Negative (Negative); Leukocyte Esterase Urine Negative (Negative); Nitrite Urine Negative (Negative); Specific Gravity - Urine <= 1.005 (1.005-1.025); Urine Blood Negative (Negative); Urine Ketones Negative (Negative); Urine Protein Negative (Neg-Trace)
[2022-10-18 08:18] LABS: B Type Natriuretic Peptide 109 pg/mL (<100)
[2022-10-18 08:24] LABS: Alanine Aminotransferase 11 U/L (0-31); Albumin Level 3.8 g/dL (3.5-5.0); Alkaline Phosphatase 98 U/L (39-117); Anion Gap 13 (12-20); Aspartate Amino Transferase 13 U/L (5-31); Bilirubin Direct 0.2 mg/dL (0.0-0.5); Bilirubin Total 0.6 mg/dL (0.0-1.0); Blood Urea Nitrogen 18 mg/dL (9-16); Calcium 10.1 mg/dL (8.4-10.2); Carbon Dioxide 27 mmol/L (22-29); Chloride 107 mmol/L (96-108); Creatinine Clr Calc Pharmacy 83.3; Estimated Glomerular Filt Rate > 60; Glucose Random 111 mg/dL (60-115); Lipase 42 U/L (8-78); Magnesium 1.9 mg/dL (1.6-2.6); Potassium 4.1 mmol/L (3.3-5.1); Sodium 143 mmol/L (135-145); Total Protein 6.5 g/dL (6.5-8.0)
[2022-10-18] MEDS: Lidocaine 4 % Patch ADH..PATCH 1 PATCH TRANSDERMA (09:01)
[2022-10-18] MEDS: Ammonium Lactate 12 % Lotion 226 GM BOTTLE 1 APPL TOPICAL (09:41)
--- NOTE | 2022-10-18 09:50 | MHC.EDTECH ---
pt walked with walker, walked with a steady gate. pt complained of lower back pain, but denied any dizziness or leg pain.
[2022-10-18 10:19] VITALS: BP 136/40; PULSE 79; RESP 20; TEMP 36.5; O2SAT 100
== END 2022-10-18 11:32 | disposition home or self-care (01) ==
PROVIDERS: Emergency Provider Emergency Medicine; PCP Physician Assistant
DX: I87.2 Venous insufficiency (chronic) (peripheral) (principal); G89.29 Other chronic pain; M54.50 Low back pain, unspecified; E10.9 Type 1 diabetes mellitus without complications; I10 Essential (primary) hypertension; E78.5 Hyperlipidemia, unspecified; Z79.4 Long term (current) use of insulin; Z95.0 Presence of cardiac pacemaker; Z79.899 Other long term (current) drug therapy
CPT/HCPCS: 36415; 80048; 80076; 81003; 82947; 83690; 83735; 83880; 85025; 99283; 99284

== ENCOUNTER 2022-10-31 01:34 | Emergency (ER) | payer OTHER, SELFPAY ==
[2022-10-31 01:50] VITALS: BP 157/98; BP 162/92; PULSE 80; RESP 19; TEMP 36.4; O2SAT 98; BMI 40.3
[2022-10-31 01:59] VITALS: BP 162/61; PULSE 80; RESP 19; TEMP 37; O2SAT 98
[2022-10-31 03:04] VITALS: BP 153/65; PULSE 80; RESP 21; TEMP 36.4; O2SAT 99
--- NOTE | 2022-10-31 03:18 | ED_ITS ---
HPI - Chest Pain General Chief Complaint: Back Pain/Injury Stated Complaint: LEFT SHOULDER AND RIB PAIN Time Seen by Provider: 10/31/22 03:15 Source: patient Mode of arrival: ambulatory Limitations: language barrier History of Present Illness HPI narrative: 77 yo female with PMH of type 2 diabetes, renal mass, COPD, CHF, HTN, GERD, CAD, fibromyalgia, diabetic polyneuropathy, chronic low back pain, hyperlipidemia, paroxysmal atrial fibrillation anticoagulated with Pradaxa, bipolar disorder, and uses a walker at home presents emergency department for evaluation of back pain, dyspepsia and burning with urination. Patient has a history of chronic lower back pain he states that her pain is gotten worse over the past week. She has been taking Tylenol with only minimal improvement of her pain. She states that she is having a burning sensation in her stomach and has been using [facility]- [place]. She states she has a burning with urination. The patient was recently seen on 10/18/2022 for urinary tract infection. Urinalysis that time was negative but she was on Macrobid. There was no urine culture sent. Related Data Home Medications Medication Instructions Recorded Confirmed blood sugar diagnostic #10 ea 03/12/20 10/06/22 brinzolamide 1 %-brimonidine 0.2 % 1 drp ophthalmic (eye) BID 04/24/21 10/06/22 eye drops,suspension (Simbrinza) latanoprost 0.005 % eye drops 1 drp ophthalmic (eye) BEDTIME 04/24/21 10/06/22 polyethylene glycol 3350 17 17 g PO BID PRN Constipation 04/24/21 10/06/22 gram/dose oral powder (Miralax) docusate sodium 100 mg capsule 100 mg PO BID 09/10/22 10/06/22 gabapentin 400 mg capsule 400 mg PO BID PRN Pain 09/10/22 10/06/22 insulin aspart U-100 100 unit/mL See Protocol subcut TIDAC PRN 09/10/22 10/06/22 (3 mL) subcutaneous pen (Novolog Hyperglycemia FlexPen U-100 Insulin aspart) Previous Rx's Medication Instructions Recorded blood pressure monitor (Blood #1 ea 03/12/20 Pressure Kit) humidifiers (Cool Mist Humidifier) #1 ea 03/12/20 Shower Chair (Chair, shower) #1 ea 09/14/20 walker (Ultra-Light Rollator misc) #1 ea 06/30/21 blood-glucose meter (FreeStyle #1 ea 07/12/21 Lite Meter kit) lancing device with lancets kit #1 ea 03/24/22 losartan 100 mg tablet 100 mg PO DAILY #90 tabs 05/11/22 dabigatran etexilate 150 mg 150 mg PO BID 90 days #180 caps 05/12/22 capsule (Pradaxa) nystatin 100,000 unit/gram topical 1 appl topical TID PRN rash #60 06/09/22 powder grams omeprazole 20 mg capsule,delayed 20 mg PO DAILY #30 caps 06/09/22 release compr.stocking,knee,long,x-lrg #12 ea 06/22/22 acetaminophen 500 mg capsule 500 mg PO Q6H PRN pain #20 caps 07/08/22 colchicine 0.6 mg tablet (Colcrys) 0.6 mg PO DAILY #90 tabs 07/08/22 furosemide 40 mg tablet 40 mg PO DAILY 90 days #90 tabs 07/08/22 isosorbide mononitrate 30 mg 30 mg PO DAILY 90 days #90 tabs 07/08/22 tablet,extended release 24 hr simvastatin 40 mg tablet 40 mg PO BEDTIME #90 tabs 07/08/22 sitagliptin phosphate 50 mg tablet 50 mg PO DAILY 90 days #90 tabs 07/08/22 (Januvia) lancets 28 gauge (FreeStyle #100 ea 07/14/22 Lancets) atenolol 50 mg tablet 50 mg PO DAILY #30 tabs 08/11/22 magnesium oxide 400 mg (241.3 mg 800 mg PO BIDPC #120 tabs 09/13/22 magnesium) tablet albuterol sulfate 90 mcg/actuation 2 puff PO Q4-6H PRN bronchospasm 09/14/22 aerosol inhaler 90 days #90 grams amitriptyline 25 mg tablet 25 mg PO BEDTIME 30 days #30 tabs 09/14/22 flecainide 100 mg tablet 100 mg PO BID #180 tabs 09/14/22 starch (thickening) (Diafoods 1 ea PO QID PRN dysphagia 90 days 09/14/22 Thick-It oral powder packet) #200 ea insulin degludec 100 unit/mL (3 70 unit (0.7 mL) subcut BID 30 09/20/22 mL) subcutaneous pen (Tresiba days #42 mL FlexTouch U-100 insulin) miscellaneous medical supply 1 ea miscellaneous DAILY 99 days 09/22/22 #2 ea cefuroxime axetil 250 mg tablet 250 mg PO BID 7 days #14 tabs 09/28/22 ciprofloxacin 0.3 %-dexamethasone 4 drp otic (ears) BID 7 days #7.5 09/28/22 0.1 % ear drops,suspension mL (Ciprodex) clotrimazole 2 % vaginal cream 1 appful vaginal BEDTIME 3 days 10/05/22 #21 grams blood sugar diagnostic (FreeStyle #100 ea 10/06/22 Lite Strips) cetirizine 10 mg tablet 10 mg PO DAILY allergy symptoms 30 10/06/22 days #30 tabs clotrimazole-betamethasone 1 1 appl topical BID 30 days #45 10/06/22 %-0.05 % topical cream grams fluticasone propionate 50 1 spray intranasal BID 30 days #16 10/06/22 mcg/actuation nasal grams spray,suspension (Flonase Allergy Relief) oxycodone 5 mg tablet 5 mg PO BID Pain 30 days #60 tabs 10/06/22 blood sugar diagnostic (OneTouch #100 ea 10/07/22 Ultra Test strips) blood-glucose meter (OneTouch #1 ea 10/07/22 Ultra2 Meter) lancets 30 gauge (OneTouch #200 ea 10/07/22 UltraSoft 2 Lancet) pen needle, diabetic 32 gauge x #300 ea 10/17/22 (BD Laury 2nd Gen Pen Needle) hydrocortisone 1 % topical cream 1 appl topical BID PRN itching 10/18/22 (Cortisone (hydrocortisone)) #28.4 grams acetaminophen 500 mg tablet 1,000 mg PO Q6H PRN fever or pain 10/31/22 (Tylenol Extra Strength) #20 tabs Allergies Allergy/AdvReac Type Severity Reaction Status Date / Time dapagliflozin [From [facility]] Allergy Unknown yeast Verified 10/06/22 15:24 infection metformin Allergy Unknown Diarrhea Verified 10/06/22 15:24 amitriptyline AdvReac Intermediate Anxiety Verified 10/06/22 15:24 clindamycin AdvReac Mild Itching Verified 10/06/22 15:24 Review of Systems Review of Systems: Yes all other systems are reviewed and are negative [facility] Past Medical History Medical History Afib Arthritis COPD (chronic obstructive pulmonary disease) Coronary artery disease Decompensated heart failure Fibromyalgia Foot ulcer NADEGE (generalized anxiety disorder) GERD (gastroesophageal reflux disease) HTN (hypertension) Insulin dependent type 1 diabetes mellitus Mass of right kidney Pacemaker Unstable angina URI (upper respiratory infection) Surgical History History of cataract surgery History of pacemaker Family History Family History Father No problems noted. Mother No problems noted. 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, [employer]) Alcohol intake: never Patient Tobacco Use Status: Never used Tobacco Smoked in Last 30 Days: No e-Cigarette/Vaping Use: Never Used Second Hand Smoke Exposure: No Use of substances other than those prescribed or required for medical reasons: No Advance Directives: Yes Advance Directives on File: Yes Advance Directives Date on File: 06/17/20 service: No Current occupational status: retired and disabled Cognitive needs: Yes Hearing needs: No Vision needs: Yes Physical Exam Vital Signs: Vital Signs: Last Vital Signs Temp 97.6 F 10/31/22 03:04 Pulse 83 10/31/22 06:00 Resp 16 10/31/22 06:00 BP 149/72 H 10/31/22 06:00 Pulse Ox 99 10/31/22 06:00 O2 Del Method Room Air 10/31/22 06:00 BMI result Body Mass Index 40.3 Const: General: cooperative and no acute distress Orientation/consciousness: oriented to person and oriented to place Limitations: no limitations HEENT: Head: Yes normal to inspection, Yes normocephalic and Yes atraumatic Ears: external ears normal General nose exam: Normal external nose present Face and sinus: Yes normal facial exam Mouth: Normal oral and palatal mucosa present Throat: Yes posterior oropharynx normal Eyes: General: appearance normal, both eyes and all related structures Neck: Neck: Yes normal visual inspection, Yes no lymphadenopathy, Yes trachea midline and Yes supple Chest: Chest palpation & inspection: normal inspection of the chest and normal palpation of entire chest wall Resp: Effort & Inspection: normal respiratory effort and able to speak in complete sentences Auscultation: clear to auscultation bilaterally Cardio: Rate: regular rate Rhythm: regular rhythm Heart sounds: S1 normal heart sound present, S2 normal heart sound present and no murmurs GI: Other: Patient's abdomen is obese, she has moderate suprapubic tenderness, normoactive bowel sounds Back/Spine/Pelvis: Other: Patient has tenderness palpation of the paraspinal muscles bilaterally in the lumbar sacral area with no spasm of these muscles Skin: General skin exam: no rashes or lesions noted Neuro: General: oriented to person and oriented to place Cognition (Neuro): normal cognition Extrem: General: Yes normal to inspection Psych: Appearance: grossly normal Speech and movement: Normal speech and movement present Affect: normal affect Attitude: cooperative Medications Administered Discontinued Medications Generic Name Dose Route Start Last Admin Trade Name Freq PRN Reason Stop Dose Admin Acetaminophen 975 mg 10/31/22 03:35 10/31/22 03:46 Acetaminophen 325 Mg Tablet PO 10/31/22 03:36 975 mg ONCE ONE Administration Al Hydroxide/Mg Hydroxide 30 ml 10/31/22 03:35 10/31/22 03:46 Magnesium Hydrox/Alum Hydrox 30 Ml Oral.Susp PO 10/31/22 03:36 30 ml ONCE STA Administration Medical Decision Making Medical Decision Making MDM Narrative: 77 yo female with PMH of type 2 diabetes, renal mass, COPD, CHF, HTN, GERD, CAD, fibromyalgia, diabetic polyneuropathy, chronic low back pain, hyperlipidemia, paroxysmal atrial fibrillation anticoagulated with Pradaxa, bipolar disorder, and uses a walker at home comes to the emergency department for evaluation of lower back pain, suprapubic pain and dyspepsia. Physical examination did revealed tenderness palpation of the suprapubic area. I did order urinalysis. Patient was given Tylenol 975 mg orally and Maalox 30 mL orally pain 0652: Patient's urinalysis is not supportive a urinary tract infection The patient will be discharged home She was given a prescription for extra-strength Tylenol 1000 mg every 6 hours as needed for pain. Differential Diagnosis Differential diagnosis includes but is not limited to acute back strain, urinary tract infection, dyspepsia Lab Data MDM Lab Attestation statement: I reviewed the patient's lab results. My interpretation patient's laboratory evaluation as follows: Urinalysis was positive for leukocyte esterase. Microscopic revealed 0-2 WBCs, 6-10 RBCs no bacteria. Labs: Lab Results 10/31/22 Range/Units 03:58 Urine Color Yellow Urine Appearance Clear Urine pH 7.0 (5.0-9.0) Ur Specific [place] 1.015 (1.005-1.025) Urine Protein Trace (Neg-Trace) mg/dL Urine Glucose (UA) Negative (Negative) mg/dL Urine Ketones Negative (Negative) mg/dL Urine Blood Negative (Negative) Urine Nitrite Negative (Negative) Ur Leukocyte Esterase Moderate (2+) H (Negative) Urine RBC 0-2 (0-2) /HPF Urine WBC 6-10 H (0-5) /HPF Ur Squamous Epith Cells 3-5 (0-2) /HPF Urine Bacteria None Seen (None Seen) Hyaline Casts 0-2 (0-2) /LPF Discharge Plan Discharge Clinical Impression: Acute lumbar back pain Patient Disposition: Home, Self-Care Additional Instructions: Your urine was normal and is not consistent with a urine infection Take Tylenol (acetaminophen) 500 mg pills, 2 pills every 6 hours as needed for pain. Follow-up with your doctor in 2 days. Please return to the emergency department if your symptoms get worse or if you develop any symptoms that are concerning to you. Prescriptions: New acetaminophen [Tylenol Extra Strength] 500 mg tablet 1,000 mg PO Q6H PRN (Reason: fever or pain) Qty: 20 0RF No Action (DME) Chair, shower Misc See Rx Instructions .ROUTE .MEDSUPPLY Qty: 1 0RF Rx Instructions: As directed (DME) blood-glucose meter [FreeStyle Lite Meter] Kit See Rx Instructions .Route Qty: 1 0RF Rx Instructions: As directed (DME) lancing device with lancets Kit See Rx Instructions .Route Qty: 1 0RF Rx Instructions: As directed losartan 100 mg tablet 100 mg PO DAILY Qty: 90 1RF Pradaxa 150 mg capsule 150 mg PO BID 90 Days Qty: 180 1RF (DME) compr.stocking,knee,long,x-lrg Misc See Rx Instructions .Route Qty: 12 0RF Rx Instructions: As directed acetaminophen 500 mg capsule 500 mg PO Q6H PRN (Reason: pain) Qty: 20 0RF furosemide 40 mg tablet 40 mg PO DAILY 90 Days Qty: 90 2RF colchicine [Colcrys] 0.6 mg tablet 0.6 mg PO DAILY Qty: 90 2RF simvastatin 40 mg tablet 40 mg PO BEDTIME Qty: 90 2RF Januvia 50 mg tablet 50 mg PO DAILY 90 Days Qty: 90 3RF isosorbide mononitrate 30 mg tablet extended release 24 hr 30 mg PO DAILY 90 Days Qty: 90 2RF (DME) lancets [FreeStyle Lancets] 28 gauge misc See Rx Instructions .ROUTE .MEDSUPPLY Qty: 100 3RF Rx Instructions: As directed atenolol 50 mg tablet 50 mg PO DAILY Qty: 30 3RF insulin degludec [Tresiba FlexTouch U-100] 100 unit/mL (3 mL) insulin pen 70 unit subcut BID 30 Days Qty: 42 6RF miscellaneous medical supply Misc 1 ea miscellaneous DAILY 99 Days Qty: 2 0RF clotrimazole 2 % cream 1 appful vaginal BEDTIME 3 Days Qty: 21 1RF (DME) blood-glucose meter [OneTouch Ultra2 Meter] [facility] [place] See Rx Instructions .Route Qty: 1 0RF Rx Instructions: test 3 times a day (DME) OneTouch Ultra Test Strip See Rx Instructions .Route Qty: 100 5RF Rx Instructions: test 3x's per day (DME) lancets [OneTouch UltraSoft 2 Lancet] 30 gauge misc See Rx Instructions .Route Qty: 200 5RF Rx Instructions: test 3x's per day (DME) pen needle, diabetic [BD Laury 2nd Gen Pen Needle] 32 gauge x 5/32 needle See Rx Instructions .Route Qty: 300 3RF Rx Instructions: Use to inject insulin 4 times per day latanoprost 0.005 % drops 1 drp ophthalmic (eye) BEDTIME polyethylene glycol 3350 [Miralax] 17 gram/dose powder 17 g PO BID PRN (Reason: Constipation) Simbrinza 1-0.2 % drops,suspension 1 drp ophthalmic (eye) BID hydrocortisone [Cortisone (hydrocortisone)] 1 % cream 1 appl topical BID PRN (Reason: itching) Qty: 28.4 0RF gabapentin 400 mg capsule 400 mg PO BID PRN (Reason: Pain) docusate sodium 100 mg capsule 100 mg PO BID insulin aspart U-100 [Novolog FlexPen U-100 Insulin] 100 unit/mL (3 mL) insulin pen See Protocol subcut TIDAC PRN (Reason: Hyperglycemia) Protocol: Insulin Correction Scale Less than or equal to 110 ---- Give (units): 0 111 to 150 Give (units): 0 151 to 200 Give (units): 2 201 to 250 Give (units): 4 251 to 300 Give (units): 6 301 to 350 Give (units): 8 Greater than 350 Give (units): 10 Call MD if Blood Glucose > : 350 Rx Instructions: Per sliding scale 0-24 units magnesium oxide 400 mg (241.3 mg magnesium) Tablet 800 mg PO BIDPC Qty: 120 0RF (DME) blood sugar diagnostic Strip See Rx Instructions Not Applicable QID Qty: 10 Rx Instructions: As directed (DME) blood pressure monitor [Blood Pressure Kit] Kit See Rx Instructions .ROUTE .MEDSUPPLY Qty: 1 0RF Rx Instructions: As directed (DME) humidifiers [Cool Mist Humidifier] Misc See Rx Instructions .ROUTE .MEDSUPPLY Qty: 1 0RF Rx Instructions: As directed (DME) Ultra-Light Rollator Misc See Rx Instructions .Route Qty: 1 0RF Rx Instructions: As directed omeprazole 20 mg capsule,delayed release(DR/EC) 20 mg PO DAILY Qty: 30 3RF nystatin 100,000 unit/gram powder 1 appl topical TID PRN (Reason: rash) Qty: 60 0RF amitriptyline 25 mg tablet 25 mg PO BEDTIME 30 Days Qty: 30 3RF albuterol sulfate 90 mcg/actuation HFA aerosol inhaler 2 puff PO Q4-6H PRN (Reason: bronchospasm) 90 Days Qty: 90 1RF flecainide 100 mg tablet 100 mg PO BID Qty: 180 1RF Diafoods Thick-It Powder In Packet 1 ea PO QID PRN (Reason: dysphagia) 90 Days Qty: 200 1RF (DME) FreeStyle Lite Strips Strip See Rx Instructions .ROUTE .MEDSUPPLY Qty: 100 3RF Rx Instructions: As directed clotrimazole-betamethasone 1-0.05 % cream 1 appl topical BID 30 Days Qty: 45 3RF cetirizine 10 mg tablet 10 mg PO DAILY 30 Days Qty: 30 1RF oxycodone 5 mg tablet 5 mg PO BID 30 Days Qty: 60 0RF fluticasone propionate [Flonase Allergy Relief] 50 mcg/actuation spray,suspension 1 spray intranasal BID 30 Days Qty: 16 0RF Rx Instructions: administer into each nostril ciprofloxacin-dexamethasone [Ciprodex] 0.3-0.1 % drops,suspension 4 drp otic (ears) BID 7 Days Qty: 7.5 0RF cefuroxime axetil 250 mg tablet 250 mg PO BID 7 Days Qty: 14 0RF
[2022-10-31] MEDS: Magnesium Hydrox/Alum Hydrox 30 ML ORAL.SUSP PO (03:46)
[2022-10-31] MEDS: Acetaminophen 325 MG TABLET 975 MG PO (03:46)
[2022-10-31 04:00] VITALS: BP 151/68; PULSE 82; RESP 16; O2SAT 99
[2022-10-31 04:06] LABS: Appearance Urine Clear; Color Urine Yellow; Glucose Urine UA Negative (Negative); Leukocyte Esterase Urine Moderate (2+) (Negative); Nitrite Urine Negative (Negative); Specific Gravity - Urine 1.015 (1.005-1.025); UMIC TRIGGER UACC YES; Urine Blood Negative (Negative); Urine Ketones Negative (Negative); Urine Protein Trace mg/dL (Neg-Trace)
[2022-10-31 04:09] LABS: Bacteria Urine None Seen (None Seen); Hyaline Casts Urine 0-2 /LPF (0-2); RBC Urine 0-2 /HPF (0-2); UACC Culture Trigger YES
[2022-10-31 06:00] VITALS: BP 149/72; PULSE 83; RESP 16; O2SAT 99
[2022-10-31 08:26] VITALS: BP 155/68; PULSE 80; RESP 18; TEMP 36.9; O2SAT 97
[2022-10-31 08:44] LABS: Glucose, Whole Blood 111 mg/dL (60-115)
== END 2022-10-31 09:46 | disposition home or self-care (01) ==
PROVIDERS: Emergency Provider Emergency Medicine Emergency Medical Services; PCP Physician Assistant
DX: R07.81 Pleurodynia (principal); M54.50 Low back pain, unspecified; Z79.899 Other long term (current) drug therapy
CPT/HCPCS: 81001; 82947; 87086; 99283; 99285

== ENCOUNTER 2022-11-18 09:32 | Emergency (ER) | payer OTHER, SELFPAY ==
[2022-11-18 09:45] VITALS: BP 113/44; PULSE 80; RESP 16; TEMP 36.7; O2SAT 97; BMI 52.6
--- NOTE | 2022-11-18 10:16 | ED.BACK ---
HPI - Back Pain/Injury General Chief Complaint: Back Pain/Injury Stated Complaint: Weakness, Back pain x 1 hour per EMS Time Seen by Provider: 11/18/22 09:41 History of Present Illness HPI Narrative: Patient is a 77-year-old female presents today with having back pain. The pain is in the lower back area. Not associated with any bowel urinary incontinence. No new weakness. Patient is scheduled for an MRI on an outpatient basis. Came to the hospital because of pain getting worse over the last few days. Been seen in the emergency department past for the same. Positive history of atrial fibrillation currently on Pradaxa. Pain is nonradiating. She denies having any chest pain and shortness of breath any diaphoresis today. Related Data Home Medications Medication Instructions Recorded Confirmed blood sugar diagnostic #10 ea 03/12/20 11/02/22 brinzolamide 1 %-brimonidine 0.2 % 1 drp ophthalmic (eye) BID 04/24/21 11/02/22 eye drops,suspension (Simbrinza) latanoprost 0.005 % eye drops 1 drp ophthalmic (eye) BEDTIME 04/24/21 11/02/22 polyethylene glycol 3350 17 17 g PO BID PRN Constipation 04/24/21 11/02/22 gram/dose oral powder (Miralax) docusate sodium 100 mg capsule 100 mg PO BID 09/10/22 11/02/22 insulin aspart U-100 100 unit/mL See Protocol subcut TIDAC PRN 09/10/22 11/02/22 (3 mL) subcutaneous pen (Novolog Hyperglycemia FlexPen U-100 Insulin aspart) Previous Rx's Medication Instructions Recorded blood pressure monitor (Blood #1 ea 03/12/20 Pressure Kit) humidifiers (Cool Mist Humidifier) #1 ea 03/12/20 Shower Chair (Chair, shower) #1 ea 09/14/20 walker (Ultra-Light Rollator misc) #1 ea 06/30/21 blood-glucose meter (FreeStyle #1 ea 07/12/21 Lite Meter kit) lancing device with lancets kit #1 ea 03/24/22 losartan 100 mg tablet 100 mg PO DAILY #90 tabs 05/11/22 dabigatran etexilate 150 mg 150 mg PO BID 90 days #180 caps 05/12/22 capsule (Pradaxa) nystatin 100,000 unit/gram topical 1 appl topical TID PRN rash #60 06/09/22 powder grams acetaminophen 500 mg capsule 500 mg PO Q6H PRN pain #20 caps 07/08/22 colchicine 0.6 mg tablet (Colcrys) 0.6 mg PO DAILY #90 tabs 07/08/22 furosemide 40 mg tablet 40 mg PO DAILY 90 days #90 tabs 07/08/22 isosorbide mononitrate 30 mg 30 mg PO DAILY 90 days #90 tabs 07/08/22 tablet,extended release 24 hr simvastatin 40 mg tablet 40 mg PO BEDTIME #90 tabs 07/08/22 sitagliptin phosphate 50 mg tablet 50 mg PO DAILY 90 days #90 tabs 07/08/22 (Januvia) lancets 28 gauge (FreeStyle #100 ea 07/14/22 Lancets) atenolol 50 mg tablet 50 mg PO DAILY #30 tabs 08/11/22 magnesium oxide 400 mg (241.3 mg 800 mg PO BIDPC #120 tabs 09/13/22 magnesium) tablet albuterol sulfate 90 mcg/actuation 2 puff PO Q4-6H PRN bronchospasm 09/14/22 aerosol inhaler 90 days #90 grams amitriptyline 25 mg tablet 25 mg PO BEDTIME 30 days #30 tabs 09/14/22 flecainide 100 mg tablet 100 mg PO BID #180 tabs 09/14/22 starch (thickening) (Diafoods 1 ea PO QID PRN dysphagia 90 days 09/14/22 Thick-It oral powder packet) #200 ea insulin degludec 100 unit/mL (3 70 unit (0.7 mL) subcut BID 30 09/20/22 mL) subcutaneous pen (Tresiba days #42 mL FlexTouch U-100 insulin) miscellaneous medical supply 1 ea miscellaneous DAILY 99 days 09/22/22 #2 ea ciprofloxacin 0.3 %-dexamethasone 4 drp otic (ears) BID 7 days #7.5 09/28/22 0.1 % ear drops,suspension mL (Ciprodex) clotrimazole 2 % vaginal cream 1 appful vaginal BEDTIME 3 days 10/05/22 #21 grams cetirizine 10 mg tablet 10 mg PO DAILY allergy symptoms 30 05/25/23 days #30 tabs clotrimazole-betamethasone 1 1 appl topical BID 30 days #45 10/06/22 %-0.05 % topical cream grams fluticasone propionate 50 1 spray intranasal BID 30 days #16 10/06/22 mcg/actuation nasal grams spray,suspension (Flonase Allergy Relief) blood sugar diagnostic (OneTouch #100 ea 10/07/22 Ultra Test strips) blood-glucose meter (OneTouch #1 ea 10/07/22 Ultra2 Meter) lancets 30 gauge (OneTouch #200 ea 10/07/22 UltraSoft 2 Lancet) pen needle, diabetic 32 gauge x #300 ea 10/17/22 (BD Laury 2nd Gen Pen Needle) hydrocortisone 1 % topical cream 1 appl topical BID PRN itching 10/18/22 (Cortisone (hydrocortisone)) #28.4 grams acetaminophen 500 mg tablet 1,000 mg PO Q6H PRN fever or pain 10/31/22 (Tylenol Extra Strength) #20 tabs gabapentin 300 mg capsule 300 mg PO BID 30 days #60 caps 11/02/22 lidocaine 5 % topical patch 1 patch topical DAILY 30 days #30 11/02/22 (Lidoderm) ea oxycodone 5 mg tablet 5 mg PO BID Pain 30 days #60 tabs 11/02/22 pantoprazole 40 mg tablet,delayed 40 mg PO DAILY 30 days #30 tabs 11/02/22 release sennosides 8.6 mg tablet (Senna 17.2 mg PO BEDTIME 30 days #60 tabs 11/02/22 Lax) blood sugar diagnostic (FreeStyle #100 ea 11/08/22 Lite Strips) compr.stocking,knee,long,x-lrg #12 ea 11/08/22 cefuroxime axetil 500 mg tablet 500 mg PO BID uti 7 days #14 tabs 11/18/22 Allergies Allergy/AdvReac Type Severity Reaction Status Date / Time dapagliflozin [From [facility]] Allergy Unknown yeast Verified 11/02/22 09:53 infection metformin Allergy Unknown Diarrhea Verified 11/02/22 09:53 amitriptyline AdvReac Intermediate Anxiety Verified 11/02/22 09:53 clindamycin AdvReac Mild Itching Verified 11/02/22 09:53 Review of Systems Review of Systems: Positive back pain Yes all other systems are reviewed and are negative [facility] Past Medical History Attestation statement: The following information was validated with the patient. Medical History Afib Arthritis COPD (chronic obstructive pulmonary disease) Coronary artery disease Decompensated heart failure Fibromyalgia Foot ulcer NADEGE (generalized anxiety disorder) GERD (gastroesophageal reflux disease) HTN (hypertension) Insulin dependent type 1 diabetes mellitus Mass of right kidney Pacemaker Unstable angina URI (upper respiratory infection) Surgical History History of cataract surgery History of pacemaker Family History Family History Father No problems noted. Mother No problems noted. 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) Alcohol intake: never Patient Tobacco Use Status: Never used Tobacco e-Cigarette/Vaping Use: Never Used Second Hand Smoke Exposure: No Advance Directives: Yes Advance Directives on File: Yes Advance Directives Date on File: 06/17/20 service: No Current occupational status: retired and disabled Cognitive needs: Yes Hearing needs: No Vision needs: Yes Physical Exam Vital Signs: Vital Signs: Last Vital Signs Temp 97.9 F 11/18/22 10:31 Pulse 80 11/18/22 11:12 Resp 17 11/18/22 10:31 BP 113/44 L 11/18/22 11:12 Pulse Ox 97 11/18/22 11:12 O2 Del Method Room Air 11/18/22 09:45 BMI result Body Mass Index 52.6 Appearance: Alert. Oriented X3. No acute distress. Eyes: Pupils equal, round and reactive to light. ENT: Pharynx normal. Neck: Normal inspection. Neck supple. No lymph nodes noted. No crepitus CVS: Normal heart rate and rhythm. Pulses normal. Normal S1 and S2 Respiratory: No respiratory distress. Breath sounds normal. No Wheezing. No rales Abdomen: Soft and nontender. No rigidity. No distention. good BS x4 Skin: Skin warm and dry. Normal skin color. Normal skin turgor. Extremities: Neurovascular intact to all extremities. No Lacerations. No Rash. 3+ pitting edema bilateral lower extremity. Sensation grossly intact. Neuro: Oriented X 3. No motor deficit. No sensory deficit. Moving all extermities. No slurred speech Medications Administered Discontinued Medications Generic Name Dose Route Start Last Admin Trade Name Rich PRN Reason Stop Dose Admin Acetaminophen 650 mg 11/18/22 10:15 11/18/22 10:30 Acetaminophen 325 Mg Tablet PO 11/18/22 10:16 650 mg ONCE ONE Administration Ceftriaxone Sodium 1 gm/ 50 mls @ 100 mls/hr 11/18/22 11:08 11/18/22 12:12 Sodium Chloride IV 11/18/22 11:37 Infused ONCE ONE Infusion Medical Decision Making Medical Decision Making [facility] Narrative: Patient positive UTI. Previous lab results was reviewed. Culture sensitivity reviewed. Has a previous history of Proteus. Patient is sensitive to Rocephin. Will give 1 dose here in the emergency department. Will send home on Ceftin. geospatial engineer notified. Physical therapy consulted. Patient was able to get up to the commode in the emergency department. There is no bowel urinary incontinence is no focal weaknesses no signs of cauda equinus syndrome. Patient able to move the commode. Was evaluated by Physical therapy. Case management aware. Work out a plan with patient's daughter. Additional physical therapy will be provided. Patient's pain chronic. There is no history of bowel urinary incontinence. She does have a urinary tract infection will go ahead and provide patient with 7 day course of Ceftin. A dose of Rocephin was given in the emergency department. Patient's previous culture reviewed. Currently in stable condition. Differential Diagnosis Differential Diagnoses: The differential diagnosis associated with the presentation includes Lab Data [facility] Lab Attestation statement: I reviewed the patient's lab results. 11/18/22 10:22 11/18/22 10:22 Labs: Lab Results 11/18/22 11/18/22 11/18/22 Range/Units 10:22 10:22 10:24 WBC 9.6 (4.8-10.8) X10*3/uL RBC 4.47 (4.20-5.50) X10*6/uL Hgb 12.1 (12.0-16.0) g/dl Hct 38.4 (37.0-47.0) % MCV 85.9 (80.0-98.0) fL MCH 27.1 (27.0-33.0) pg MCHC 31.5 (31.0-35.0) g/dl RDW 14.4 (11.0-16.0) % Plt Count 223 (160-400) X10*3/uL MPV 10.4 (9.4-12.3) fL Immature Gran % (Auto) 0.5 H (0.0-0.4) % Neut % (Auto) 80.2 H (45-73) % Lymph % (Auto) 11.8 L (20-40) % [place] % (Auto) 6.8 (2-11) % Eos % (Auto) 0.5 (0-4) % Baso % (Auto) 0.2 (0-2) % Lymph # (Auto) 1.1 L (1.2-4.9) X10*3/uL [place] # (Auto) 0.7 (0.1-1.2) X10*3/uL Eos # (Auto) 0.1 (0.0-0.4) X10*3/uL Baso # (Auto) 0.0 (0.0-0.2) X10*3/uL Abs Immat Gran (auto) 0.05 H (0.00-0.03) X10*3/uL Absolute Neuts (auto) 7.7 (2.0-8.3) x10*3/uL Absolute Nucleated RBC 0.000 (0.0-0.012) X10*3/uL Nucleated RBC % (auto) 0.0 (0.0-0.2) /100WBC Sodium 141 (135-145) mmol/L Potassium 3.9 (3.3-5.1) mmol/L Chloride 106 (96-108) mmol/L Carbon Dioxide 26 (22-29) mmol/L Anion Gap 13 (12-20) BUN 13 (9-16) mg/dL Creatinine 0.78 (0.5-1.4) mg/dL Estim Creat Clear Calc 72.6 Estimated GFR > 60 Random Glucose 145 H (60-115) mg/dL Calcium 10.1 (8.4-10.2) mg/dL Urine Color Urine Appearance Urine pH (5.0-9.0) Ur Specific [place] (1.005-1.025) Urine Protein (Neg-Trace) mg/dL Urine Glucose (UA) (Negative) mg/dL Urine Ketones (Negative) mg/dL Urine Blood (Negative) Urine Nitrite (Negative) Ur Leukocyte Esterase (Negative) Urine RBC (0-2) /HPF Urine WBC (0-5) /HPF Ur Squamous Epith Cells (0-2) /HPF Urine Bacteria (None Seen) Hyaline Casts (0-2) /LPF COVID-19 (AYANNA) Negative (Negative) COVID-19 Clin Com See Note 11/18/22 Range/Units 10:39 WBC (4.8-10.8) X10*3/uL RBC (4.20-5.50) X10*6/uL Hgb (12.0-16.0) g/dl Hct (37.0-47.0) % MCV (80.0-98.0) fL MCH (27.0-33.0) pg MCHC (31.0-35.0) g/dl RDW (11.0-16.0) % Plt Count (160-400) X10*3/uL MPV (9.4-12.3) fL Immature Gran % (Auto) (0.0-0.4) % Neut % (Auto) (45-73) % Lymph % (Auto) (20-40) % [place] % (Auto) (2-11) % Eos % (Auto) (0-4) % Baso % (Auto) (0-2) % Lymph # (Auto) (1.2-4.9) X10*3/uL [place] # (Auto) (0.1-1.2) X10*3/uL Eos # (Auto) (0.0-0.4) X10*3/uL Baso # (Auto) (0.0-0.2) X10*3/uL Abs Immat Gran (auto) (0.00-0.03) X10*3/uL Absolute Neuts (auto) (2.0-8.3) x10*3/uL Absolute Nucleated RBC (0.0-0.012) X10*3/uL Nucleated RBC % (auto) (0.0-0.2) /100WBC Sodium (135-145) mmol/L Potassium (3.3-5.1) mmol/L Chloride (96-108) mmol/L Carbon Dioxide (22-29) mmol/L Anion Gap (12-20) BUN (9-16) mg/dL Creatinine (0.5-1.4) mg/dL Estim Creat Clear Calc Estimated GFR Random Glucose (60-115) mg/dL Calcium (8.4-10.2) mg/dL Urine Color Yellow Urine Appearance Clear Urine pH 6.5 (5.0-9.0) Ur Specific [place] <= 1.005 (1.005-1.025) Urine Protein Negative (Neg-Trace) mg/dL Urine Glucose (UA) Negative (Negative) mg/dL Urine Ketones Negative (Negative) mg/dL Urine Blood Negative (Negative) Urine Nitrite Positive H (Negative) Ur Leukocyte Esterase Moderate (2+) H (Negative) Urine RBC 0-2 (0-2) /HPF Urine WBC 21-50 H (0-5) /HPF Ur Squamous Epith Cells 0-2 (0-2) /HPF Urine Bacteria 4+ (None Seen) Hyaline Casts 0-2 (0-2) /LPF COVID-19 (AYANNA) (Negative) COVID-19 Clin Com Chronic Conditions Urinary tract infection Discharge Plan Discharge Clinical Impression: UTI (urinary tract infection), Back pain Patient Disposition: Home, Self-Care Instructions: Chronic Back Pain (DC), Urinary Tract Infection in Older Adults (ED) Prescriptions: New cefuroxime axetil 500 mg tablet 500 mg PO BID 7 Days Qty: 14 0RF No Action (DME) Chair, shower Misc See Rx Instructions .ROUTE .MEDSUPPLY Qty: 1 0RF Rx Instructions: As directed (DME) blood-glucose meter [FreeStyle Lite Meter] Kit See Rx Instructions .Route Qty: 1 0RF Rx Instructions: As directed (DME) lancing device with lancets Kit See Rx Instructions .Route Qty: 1 0RF Rx Instructions: As directed losartan 100 mg tablet 100 mg PO DAILY Qty: 90 1RF Pradaxa 150 mg capsule 150 mg PO BID 90 Days Qty: 180 1RF acetaminophen 500 mg capsule 500 mg PO Q6H PRN (Reason: pain) Qty: 20 0RF furosemide 40 mg tablet 40 mg PO DAILY 90 Days Qty: 90 2RF colchicine [Colcrys] 0.6 mg tablet 0.6 mg PO DAILY Qty: 90 2RF simvastatin 40 mg tablet 40 mg PO BEDTIME Qty: 90 2RF Januvia 50 mg tablet 50 mg PO DAILY 90 Days Qty: 90 3RF isosorbide mononitrate 30 mg tablet extended release 24 hr 30 mg PO DAILY 90 Days Qty: 90 2RF (DME) lancets [FreeStyle Lancets] 28 gauge misc See Rx Instructions .ROUTE .MEDSUPPLY Qty: 100 3RF Rx Instructions: As directed atenolol 50 mg tablet 50 mg PO DAILY Qty: 30 3RF insulin degludec [Tresiba FlexTouch U-100] 100 unit/mL (3 mL) insulin pen 70 unit subcut BID 30 Days Qty: 42 6RF miscellaneous medical supply Misc 1 ea miscellaneous DAILY 99 Days Qty: 2 0RF clotrimazole 2 % cream 1 appful vaginal BEDTIME 3 Days Qty: 21 1RF (DME) blood-glucose meter [OneTouch Ultra2 Meter] Misc See Rx Instructions .Route Qty: 1 0RF Rx Instructions: test 3 times a day (DME) OneTouch Ultra Test Strip See Rx Instructions .Route Qty: 100 5RF Rx Instructions: test 3x's per day (DME) lancets [OneTouch UltraSoft 2 Lancet] 30 gauge misc See Rx Instructions .Route Qty: 200 5RF Rx Instructions: test 3x's per day (DME) pen needle, diabetic [BD Laury 2nd Gen Pen Needle] 32 gauge x 5/32 needle See Rx Instructions .Route Qty: 300 3RF Rx Instructions: Use to inject insulin 4 times per day gabapentin 300 mg capsule 300 mg PO BID 30 Days Qty: 60 1RF (DME) FreeStyle Lite Strips Strip See Rx Instructions .ROUTE .MEDSUPPLY Qty: 100 3RF Rx Instructions: As directed (DME) compr.stocking,knee,long,x-lrg Misc See Rx Instructions .Route Qty: 12 1RF Rx Instructions: WHITE SOCKS PLEASE latanoprost 0.005 % drops 1 drp ophthalmic (eye) BEDTIME polyethylene glycol 3350 [Miralax] 17 gram/dose powder 17 g PO BID PRN (Reason: Constipation) Simbrinza 1-0.2 % drops,suspension 1 drp ophthalmic (eye) BID hydrocortisone [Cortisone (hydrocortisone)] 1 % cream 1 appl topical BID PRN (Reason: itching) Qty: 28.4 0RF docusate sodium 100 mg capsule 100 mg PO BID insulin aspart U-100 [Novolog FlexPen U-100 Insulin] 100 unit/mL (3 mL) insulin pen See Protocol subcut TIDAC PRN (Reason: Hyperglycemia) Protocol: Insulin Correction Scale Less than or equal to 110 ---- Give (units): 0 111 to 150 Give (units): 0 151 to 200 Give (units): 2 201 to 250 Give (units): 4 251 to 300 Give (units): 6 301 to 350 Give (units): 8 Greater than 350 Give (units): 10 Call MD if Blood Glucose > : 350 Rx Instructions: Per sliding scale 0-24 units magnesium oxide 400 mg (241.3 mg magnesium) Tablet 800 mg PO BIDPC Qty: 120 0RF acetaminophen [Tylenol Extra Strength] 500 mg tablet 1,000 mg PO Q6H PRN (Reason: fever or pain) Qty: 20 0RF (DME) blood sugar diagnostic Strip See Rx Instructions Not Applicable QID Qty: 10 Rx Instructions: As directed (DME) blood pressure monitor [Blood Pressure Kit] Kit See Rx Instructions .ROUTE .MEDSUPPLY Qty: 1 0RF Rx Instructions: As directed (DME) humidifiers [Cool Mist Humidifier] Misc See Rx Instructions .ROUTE .MEDSUPPLY Qty: 1 0RF Rx Instructions: As directed (DME) Ultra-Light Rollator Misc See Rx Instructions .Route Qty: 1 0RF Rx Instructions: As directed nystatin 100,000 unit/gram powder 1 appl topical TID PRN (Reason: rash) Qty: 60 0RF amitriptyline 25 mg tablet 25 mg PO BEDTIME 30 Days Qty: 30 3RF albuterol sulfate 90 mcg/actuation HFA aerosol inhaler 2 puff PO Q4-6H PRN (Reason: bronchospasm) 90 Days Qty: 90 1RF flecainide 100 mg tablet 100 mg PO BID Qty: 180 1RF Diafoods Thick-It Powder In Packet 1 ea PO QID PRN (Reason: dysphagia) 90 Days Qty: 200 1RF clotrimazole-betamethasone 1-0.05 % cream 1 appl topical BID 30 Days Qty: 45 3RF cetirizine 10 mg tablet 10 mg PO DAILY 30 Days Qty: 30 1RF fluticasone propionate [Flonase Allergy Relief] 50 mcg/actuation spray,suspension 1 spray intranasal BID 30 Days Qty: 16 0RF Rx Instructions: administer into each nostril ciprofloxacin-dexamethasone [Ciprodex] 0.3-0.1 % drops,suspension 4 drp otic (ears) BID 7 Days Qty: 7.5 0RF pantoprazole 40 mg tablet,delayed release (DR/EC) 40 mg PO DAILY 30 Days Qty: 30 1RF sennosides [Senna Lax] 8.6 mg tablet 17.2 mg PO BEDTIME 30 Days Qty: 60 2RF oxycodone 5 mg tablet 5 mg PO BID 30 Days Qty: 60 0RF lidocaine [Lidoderm] 5 % adhesive patch,medicated 1 patch topical DAILY 30 Days Qty: 30 0RF Rx Instructions: leave on most painful area for up to 12 hrs Referrals: [facility] [Other] ([facility] WILL PROVIDE PHYSICAL THERAPY SERVICES. )
[2022-11-18 10:28] LABS: MANUAL DIFF FLAG NO
[2022-11-18 10:31] VITALS: BP 125/49; PULSE 84; RESP 17; TEMP 36.6
[2022-11-18 10:32] LABS: Basophils Percent Auto 0.2 % (0-2); Eosinophils Absolute Auto 0.1 X10*3/uL (0.0-0.4); Eosinophils Percent Auto 0.5 % (0-4); Hematocrit 38.4 % (37.0-47.0); Hemoglobin 12.1 g/dl (12.0-16.0); Imm Gran Abs Auto 0.05 X10*3/uL (0.00-0.03); Imm Gran Pct Auto 0.5 % (0.0-0.4); Lymphocytes Absolute Auto 1.1 X10*3/uL (1.2-4.9); Lymphocytes Percent Auto 11.8 % (20-40); Mean Corpuscular HGB Conc 31.5 g/dl (31.0-35.0); Mean Corpuscular Hemoglobin 27.1 pg (27.0-33.0); Mean Corpuscular Volume 85.9 fL (80.0-98.0); Mean Platelet Volume 10.4 fL (9.4-12.3); Monocytes Absolute Auto 0.7 X10*3/uL (0.1-1.2); Monocytes Percent Auto 6.8 % (2-11); Neutrophils Absolute Auto 7.7 x10*3/uL (2.0-8.3); Neutrophils Percent Auto 80.2 % (45-73); Platelet Count 223 X10*3/uL (160-400); Red Blood Count 4.47 X10*6/uL (4.20-5.50); Red Cell Distribution Width 14.4 % (11.0-16.0); White Blood Count 9.6 X10*3/uL (4.8-10.8)
[2022-11-18 10:43] LABS: Anion Gap 13 (12-20); Blood Urea Nitrogen 13 mg/dL (9-16); Calcium 10.1 mg/dL (8.4-10.2); Carbon Dioxide 26 mmol/L (22-29); Chloride 106 mmol/L (96-108); Creatinine Clr Calc Pharmacy 72.6; Estimated Glomerular Filt Rate > 60; Glucose Random 145 mg/dL (60-115); Potassium 3.9 mmol/L (3.3-5.1); Sodium 141 mmol/L (135-145)
--- NOTE | 2022-11-18 10:43 | PC.NURSE ---
patient a&ox3, labs drawn, urine obtained, pt c/o 02/21 back pain- medicated with tylenol per order, awaiting results of labs, call mane within reach, will continue to monitor.
[2022-11-18 11:12] VITALS: BP 113/44; PULSE 80; O2SAT 97
--- NOTE | 2022-11-18 11:56 | PC.NURSE ---
IV inserted, pt medicated per order
--- NOTE | 2022-11-18 12:06 | PC.NURSE ---
pt a&ox3, nsr on the clinical research monitor, vss, pt verbalizes slight pain relief post tylenol administration - pt states an 12/22, call mane placed within reach, will continue to monitor.
--- NOTE | 2022-11-18 12:19 | PC.NURSE ---
pt's abx reassessed - infusion finished so it has bene discontinued.
--- NOTE | 2022-11-18 12:52 | MHC.CM.ED ---
Received case management consult from Dr Matt. Patient came to ER due to back pain. Found to have UTI and chronic back pain. Physical therapy eval completed. Home therapy is recommended. Patient has [facility]. Spoke with Audrey of [facility]. [facility] will provide physical therapy for patient. Met with patient and chair mechanic in regards to discharge planning. Patient lives with her son, ambulates with a cane and has [employer] hours from [facility]. PCP verified. Copy of HCP verified to be on file. Patient received 2 Pfizer vaccines and 1 Moderna vaccine. Patient agreeable to going home with [facility] physical therapy. Patient is unsure how to get in contact with her [employer]ET[employer] MANAGER, Melinda. Patient requesting T/W speak to her daughter, Bell. Spoke with Bell via telephone at [phone]. Bell will be here around 130pm to transport patient home. [place] will notify Melinda that patient will be coming home. Patient, Amanda BAE and Dr Alba aware. Continue to monitor for d/c needs.
[2022-11-18 13:55] VITALS: BP 128/60; PULSE 79; RESP 18; TEMP 36.8; O2SAT 100
[2022-11-18 14:23] VITALS: BP 138/60; PULSE 80; RESP 18; TEMP 36.6; O2SAT 98
== END 2022-11-18 14:42 | disposition home or self-care (01) ==
PROVIDERS: Emergency Provider Emergency Medicine Emergency Medical Services; PCP Physician Assistant
DX: N39.0 Urinary tract infection, site not specified (principal); M54.50 Low back pain, unspecified; R26.2 Difficulty in walking, not elsewhere classified; Z20.822 Contact with and (suspected) exposure to COVID-19; Z20.828 Contact with and (suspected) exposure to other viral communicable diseases; Z79.899 Other long term (current) drug therapy
CPT/HCPCS: 36415; 80048; 81001; 82947; 85025; 87086; 87088; 87186; 87635; 96365; 97161; 99284; J0696

== ENCOUNTER 2022-11-20 03:44 | Emergency (ER) | payer OTHER, SELFPAY ==
[2022-11-20 03:49] VITALS: BP 170/100; PULSE 80; O2SAT 99
[2022-11-20 03:59] VITALS: BP 118/58; BP 149/80; PULSE 80; PULSE 85; RESP 18; TEMP 37; O2SAT 100; O2SAT 99; BMI 49.1
[2022-11-20 04:59] VITALS: BP 117/70; PULSE 81; RESP 18; TEMP 37; O2SAT 100
--- NOTE | 2022-11-20 05:54 | PC.NURSE ---
pt continues to wait to be seen by MD. pt is resting on stretcher in NAD, wants pain meds for her lower back pain and leg pain. MD made aware of pts needs.
[2022-11-20 06:00] VITALS: BP 118/71; PULSE 70; RESP 16; TEMP 36.9; O2SAT 100
--- NOTE | 2022-11-20 06:19 | PC.NURSE ---
Spoke with Lizbeth, pts daughter and proxy states that her mother has been keeping everyone up at night because of her back pain. Daughter states that her mother has a cyst on her kidney and is wondering if that is causing the pt some much pain. made aware of pts family concerns and wants either the nurse or the MD to call her for any updates on pts prognosis [phone].
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
[2022-11-20 08:47] LABS: Glucose, Whole Blood 104 mg/dL (60-115)
--- NOTE | 2022-11-20 09:23 | PC.NURSE ---
very difficult but successful 2 person assist from bed to commode then wheel chair with us of walker. pt reports last BM was 3 day ago. RN will give family advice on constiptaion management.
[2022-11-20 09:27] VITALS: BP 133/53; PULSE 81; RESP 18; O2SAT 96
== END 2022-11-20 12:04 | disposition home or self-care (01) ==
PROVIDERS: Emergency Provider Student in an Organized Health Care Education/Training Program; PCP Physician Assistant
DX: N10 Acute pyelonephritis (principal); N39.0 Urinary tract infection, site not specified; K59.00 Constipation, unspecified; M54.50 Low back pain, unspecified; Z79.899 Other long term (current) drug therapy
CPT/HCPCS: 82947; 99284

== ENCOUNTER 2022-11-23 15:39 | Emergency (ER) | payer OTHER, SELFPAY ==
[2022-11-23 16:00] VITALS: BP 149/63; PULSE 80; RESP 16; TEMP 37; O2SAT 100; BMI 39.0
--- NOTE | 2022-11-23 16:20 | ED.GENADULT ---
HPI - General Adult General Chief complaint: Back Pain/Injury Stated complaint: LOWER BACK PAIN Time Seen by Provider: 11/23/22 15:51 Source: patient and family (Daughter) Mode of arrival: EMS Limitations: no limitations History of Present Illness HPI narrative: 77-year-old female history of COPD, fibromyalgia, chronic back pain, anxiety, obesity, diabetes, hypertension presenting with lower back pain worse to the left lower back region and radiating to left lower extremity, she tells me this is chronic in nature and has been going on for years. She reports is been worse over the past few days, was seen at [facility] yesterday with the same presentation, she was told she had sciatica, pain is unchanged, symptoms are unchanged however she states she would like her pain gone. Denies fevers, chills, chest pain, shortness of breath, numbness, tingling, urinary/bowel incontinence/retention, saddle paresthesias, weakness. Related Data Home Medications Medication Instructions Recorded Confirmed blood sugar diagnostic #10 ea 03/12/20 11/02/22 brinzolamide 1 %-brimonidine 0.2 % 1 drp ophthalmic (eye) BID 04/24/21 11/02/22 eye drops,suspension (Simbrinza) latanoprost 0.005 % eye drops 1 drp ophthalmic (eye) BEDTIME 04/24/21 11/02/22 polyethylene glycol 3350 17 17 g PO BID PRN Constipation 04/24/21 11/02/22 gram/dose oral powder (Miralax) docusate sodium 100 mg capsule 100 mg PO BID 09/10/22 11/02/22 insulin aspart U-100 100 unit/mL See Protocol subcut TIDAC PRN 09/10/22 11/02/22 (3 mL) subcutaneous pen (Novolog Hyperglycemia FlexPen U-100 Insulin aspart) Previous Rx's Medication Instructions Recorded blood pressure monitor (Blood #1 ea 03/12/20 Pressure Kit) humidifiers (Cool Mist Humidifier) #1 ea 03/12/20 Shower Chair (Chair, shower) #1 ea 09/14/20 walker (Ultra-Light Rollator misc) #1 ea 06/30/21 blood-glucose meter (FreeStyle #1 ea 07/12/21 Lite Meter kit) lancing device with lancets kit #1 ea 03/24/22 losartan 100 mg tablet 100 mg PO DAILY #90 tabs 05/11/22 dabigatran etexilate 150 mg 150 mg PO BID 90 days #180 caps 05/12/22 capsule (Pradaxa) nystatin 100,000 unit/gram topical 1 appl topical TID PRN rash #60 06/09/22 powder grams acetaminophen 500 mg capsule 500 mg PO Q6H PRN pain #20 caps 07/08/22 colchicine 0.6 mg tablet (Colcrys) 0.6 mg PO DAILY #90 tabs 07/08/22 furosemide 40 mg tablet 40 mg PO DAILY 90 days #90 tabs 07/08/22 isosorbide mononitrate 30 mg 30 mg PO DAILY 90 days #90 tabs 07/08/22 tablet,extended release 24 hr simvastatin 40 mg tablet 40 mg PO BEDTIME #90 tabs 07/08/22 sitagliptin phosphate 50 mg tablet 50 mg PO DAILY 90 days #90 tabs 07/08/22 (Januvia) lancets 28 gauge (FreeStyle #100 ea 07/14/22 Lancets) atenolol 50 mg tablet 50 mg PO DAILY #30 tabs 08/11/22 magnesium oxide 400 mg (241.3 mg 800 mg PO BIDPC #120 tabs 09/13/22 magnesium) tablet albuterol sulfate 90 mcg/actuation 2 puff PO Q4-6H PRN bronchospasm 09/14/22 aerosol inhaler 90 days #90 grams amitriptyline 25 mg tablet 25 mg PO BEDTIME 30 days #30 tabs 09/14/22 flecainide 100 mg tablet 100 mg PO BID #180 tabs 09/14/22 starch (thickening) (Diafoods 1 ea PO QID PRN dysphagia 90 days 09/14/22 Thick-It oral powder packet) #200 ea insulin degludec 100 unit/mL (3 70 unit (0.7 mL) subcut BID 30 09/20/22 mL) subcutaneous pen (Tresiba days #42 mL FlexTouch U-100 insulin) miscellaneous medical supply 1 ea miscellaneous DAILY 99 days 09/22/22 #2 ea ciprofloxacin 0.3 %-dexamethasone 4 drp otic (ears) BID 7 days #7.5 09/28/22 0.1 % ear drops,suspension mL (Ciprodex) clotrimazole 2 % vaginal cream 1 appful vaginal BEDTIME 3 days 10/05/22 #21 grams cetirizine 10 mg tablet 10 mg PO DAILY allergy symptoms 30 10/06/22 days #30 tabs clotrimazole-betamethasone 1 1 appl topical BID 30 days #45 10/06/22 %-0.05 % topical cream grams fluticasone propionate 50 1 spray intranasal BID 30 days #16 10/06/22 mcg/actuation nasal grams spray,suspension (Flonase Allergy Relief) blood sugar diagnostic (OneTouch #100 ea 10/07/22 Ultra Test strips) blood-glucose meter (OneTouch #1 ea 10/07/22 Ultra2 Meter) lancets 30 gauge (OneTouch #200 ea 10/07/22 UltraSoft 2 Lancet) pen needle, diabetic 32 gauge x #300 ea 10/17/22 (BD Laury 2nd Gen Pen Needle) hydrocortisone 1 % topical cream 1 appl topical BID PRN itching 10/18/22 (Cortisone (hydrocortisone)) #28.4 grams acetaminophen 500 mg tablet 1,000 mg PO Q6H PRN fever or pain 10/31/22 (Tylenol Extra Strength) #20 tabs gabapentin 300 mg capsule 300 mg PO BID 30 days #60 caps 11/02/22 lidocaine 5 % topical patch 1 patch topical DAILY 30 days #30 11/02/22 (Lidoderm) ea oxycodone 5 mg tablet 5 mg PO BID Pain 30 days #60 tabs 11/02/22 pantoprazole 40 mg tablet,delayed 40 mg PO DAILY 30 days #30 tabs 11/02/22 release sennosides 8.6 mg tablet (Senna 17.2 mg PO BEDTIME 30 days #60 tabs 11/02/22 Lax) blood sugar diagnostic (FreeStyle #100 ea 11/08/22 Lite Strips) compr.stocking,knee,long,x-lrg #12 ea 11/08/22 cefdinir 300 mg capsule 300 mg PO BID 7 days #14 caps 11/20/22 lidocaine 5 % topical patch 1 patch topical DAILY PRN pain #15 11/23/22 ea Allergies Allergy/AdvReac Type Severity Reaction Status Date / Time dapagliflozin [From [facility]] Allergy Unknown yeast Verified 11/02/22 09:53 infection metformin Allergy Unknown Diarrhea Verified 11/02/22 09:53 amitriptyline AdvReac Intermediate Anxiety Verified 11/02/22 09:53 clindamycin AdvReac Mild Itching Verified 11/02/22 09:53 Review of Systems Review of Systems: Constitutional : No Weight loss, No Fever, No Chills, ENT/Mouth : No Hearing loss, No Ear Pain, No Nasal Congestion, No Sinus Pain, No Hoarseness, No sore throat, No Rhinorrhea, No Swallowing Difficulty Cardiovascular : No Chest Pain, No SOB Respiratory : No Cough, No Dyspnea Gastrointestinal : No Nausea, No Vomiting, No Diarrhea, No abdominal Pain, No Hematochezia, No Melena Genitourinary : No Dysuria, No Urinary Frequency, No Hematuria, No Urinary Incontinence, Musculoskeletal : positive back pain Skin : No Skin Lesions, No rash Neuro : No Weakness, No Numbness, No Paresthesias, no loss of bowel or bladder incontinence, no saddle anesthesia Yes all other systems are reviewed and are negative [facility] Past Medical History Attestation statement: The following information was validated with the patient. Source: old records reviewed and nursing notes reviewed Medical History Afib Arthritis COPD (chronic obstructive pulmonary disease) Coronary artery disease Decompensated heart failure Fibromyalgia Foot ulcer NADEGE (generalized anxiety disorder) GERD (gastroesophageal reflux disease) HTN (hypertension) Insulin dependent type 1 diabetes mellitus Mass of right kidney Pacemaker Unstable angina URI (upper respiratory infection) Surgical History History of cataract surgery History of pacemaker Family History Family History Father No problems noted. Mother No problems noted. 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) Alcohol intake: never Patient Tobacco Use Status: Never used Tobacco e-Cigarette/Vaping Use: Never Used Second Hand Smoke Exposure: No Advance Directives: Yes Advance Directives on File: Yes Advance Directives Date on File: 06/17/20 service: No Current occupational status: retired and disabled Cognitive needs: Yes Hearing needs: No Vision needs: Yes Physical Exam ED Vital Signs: Vital Signs - 24 hr 11/23/22 16:00 Temperature 98.6 F Pulse Rate 80 Respiratory Rate 16 Blood Pressure 149/63 H Pulse Oximetry 100 Oxygen Delivery Method Room Air BMI result Body Mass Index 39.0 vss Appearance: Alert.? Oriented X3.? No acute distress.? Head: Normocephalic, atraumatic, no step-offs or deformities Eyes: Pupils equal, round and reactive to light.? ENT: Pharynx normal.? Neck: Normal inspection.? Neck supple.? CVS: Normal heart rate and rhythm.? Pulses normal.? Respiratory: No respiratory distress.? Breath sounds normal.? Abdomen: Soft and nontender.? Skin: Skin warm and dry.? Normal skin color.? Normal skin turgor.? Extremities: No lower extremity edema.? No calf ttp. 5/5 strength to bilateral upper and lower extremities Back: No midline tenderness, no C-spine tenderness, full range of motion, no CVA tenderness bilaterally + bilateral lumbar paraspinous tenderness bilateral lumbar region throughout. No midline tenderness. Neuro: Oriented X 3.? No motor deficit.? No sensory deficit. CN 2-12 intact . Ambulating with slow steady gait. No saddle paresthesias. Medical Decision Making Medical Decision Making [facility] Narrative: 1620 This is a 77-year-old female presenting with chronic back pain worse to left lower back region with radiation to left lower extremity Physical exam with No midline tenderness, no C-spine tenderness, full range of motion, no CVA tenderness bilaterally + bilateral lumbar paraspinous tenderness bilateral lumbar region throughout. No midline tenderness. Likely lumbar radiculopathy versus sciatica. Unlikely cauda equina, epidural abscess, no signs of cord compression. Will give Tylenol, Lidoderm patch. Discharge patient home. No indication for imaging. Patient was seen at [facility] yesterday with same presentation. Daughter at the bedside who states that her mother just wants her pain to be gone which is unrealistic, patient is currently being followed by Physical therapy, providers at home and is scheduled to have physical therapy again on Monday. Plan at this time discharge home. Educated patient on diagnosis and treatment plan, answered all question, patient verbalizes understanding. At this time patient will be discharged home, advised to return with new or worsening symptoms. Educated on worrisome signs and symptoms and when to return. At this time I feel comfortable discharge home. Differential Diagnosis Differential Diagnoses: The differential diagnosis associated with the presentation includes Likely lumbar radiculopathy versus sciatica. Unlikely cauda equina, epidural abscess, no signs of cord compression. Admission/Observation Consideration of admission/observation: Escalation of care including admission/observation considered No indication Tests considered The following testing was considered but not selected: Indication for imaging, atraumatic. Core Measures AMI core measures followed: Yes Measure exclusions: not indicated Critical Care Time Critical Care Time Critical Care Time: No Discharge Plan Discharge Clinical Impression: Lumbar radiculopathy Patient Disposition: Home, Self-Care Instructions: Lumbar Radiculopathy (ED) Additional Instructions: Take your medications as prescribed. If you were prescribed antibiotics today, it is important that you take your medication to their entirety, do not skip any doses, do not finish them early. Follow-up with your primary care provider this week. Return to the emergency department with new or worsening symptoms. Such as fevers, chills, chest pain, shortness of breath, nausea, vomiting, dizziness, headache, vision changes, lethargy In case of emergency call 911 Continue taking the oxycodone your prescribed. Use Lidoderm patches as instructed Prescriptions: New lidocaine 5 % adhesive patch,medicated 1 patch topical DAILY PRN (Reason: pain) Qty: 15 0RF Rx Instructions: leave on most painful area for up to 12 hrs No Action (DME) Chair, shower Misc See Rx Instructions .ROUTE .MEDSUPPLY Qty: 1 0RF Rx Instructions: As directed (DME) blood-glucose meter [FreeStyle Lite Meter] Kit See Rx Instructions .Route Qty: 1 0RF Rx Instructions: As directed (DME) lancing device with lancets Kit See Rx Instructions .Route Qty: 1 0RF Rx Instructions: As directed losartan 100 mg tablet 100 mg PO DAILY Qty: 90 1RF Pradaxa 150 mg capsule 150 mg PO BID 90 Days Qty: 180 1RF acetaminophen 500 mg capsule 500 mg PO Q6H PRN (Reason: pain) Qty: 20 0RF furosemide 40 mg tablet 40 mg PO DAILY 90 Days Qty: 90 2RF colchicine [Colcrys] 0.6 mg tablet 0.6 mg PO DAILY Qty: 90 2RF simvastatin 40 mg tablet 40 mg PO BEDTIME Qty: 90 2RF Januvia 50 mg tablet 50 mg PO DAILY 90 Days Qty: 90 3RF isosorbide mononitrate 30 mg tablet extended release 24 hr 30 mg PO DAILY 90 Days Qty: 90 2RF (DME) lancets [FreeStyle Lancets] 28 gauge misc See Rx Instructions .ROUTE .MEDSUPPLY Qty: 100 3RF Rx Instructions: As directed atenolol 50 mg tablet 50 mg PO DAILY Qty: 30 3RF insulin degludec [Tresiba FlexTouch U-100] 100 unit/mL (3 mL) insulin pen 70 unit subcut BID 30 Days Qty: 42 6RF miscellaneous medical supply Misc 1 ea miscellaneous DAILY 99 Days Qty: 2 0RF clotrimazole 2 % cream 1 appful vaginal BEDTIME 3 Days Qty: 21 1RF (DME) blood-glucose meter [OneTouch Ultra2 Meter] Misc See Rx Instructions .Route Qty: 1 0RF Rx Instructions: test 3 times a day (DME) OneTouch Ultra Test Strip See Rx Instructions .Route Qty: 100 5RF Rx Instructions: test 3x's per day (DME) lancets [OneTouch UltraSoft 2 Lancet] 30 gauge misc See Rx Instructions .Route Qty: 200 5RF Rx Instructions: test 3x's per day (DME) pen needle, diabetic [BD Laury 2nd Gen Pen Needle] 32 gauge x 5/32 needle See Rx Instructions .Route Qty: 300 3RF Rx Instructions: Use to inject insulin 4 times per day gabapentin 300 mg capsule 300 mg PO BID 30 Days Qty: 60 1RF (DME) FreeStyle Lite Strips Strip See Rx Instructions .ROUTE .MEDSUPPLY Qty: 100 3RF Rx Instructions: As directed (DME) compr.stocking,knee,long,x-lrg Misc See Rx Instructions .Route Qty: 12 1RF Rx Instructions: WHITE SOCKS PLEASE latanoprost 0.005 % drops 1 drp ophthalmic (eye) BEDTIME polyethylene glycol 3350 [Miralax] 17 gram/dose powder 17 g PO BID PRN (Reason: Constipation) Simbrinza 1-0.2 % drops,suspension 1 drp ophthalmic (eye) BID hydrocortisone [Cortisone (hydrocortisone)] 1 % cream 1 appl topical BID PRN (Reason: itching) Qty: 28.4 0RF docusate sodium 100 mg capsule 100 mg PO BID insulin aspart U-100 [Novolog FlexPen U-100 Insulin] 100 unit/mL (3 mL) insulin pen See Protocol subcut TIDAC PRN (Reason: Hyperglycemia) Protocol: Insulin Correction Scale Less than or equal to 110 ---- Give (units): 0 111 to 150 Give (units): 0 151 to 200 Give (units): 2 201 to 250 Give (units): 4 251 to 300 Give (units): 6 301 to 350 Give (units): 8 Greater than 350 Give (units): 10 Call MD if Blood Glucose > : 350 Rx Instructions: Per sliding scale 0-24 units magnesium oxide 400 mg (241.3 mg magnesium) Tablet 800 mg PO BIDPC Qty: 120 0RF acetaminophen [Tylenol Extra Strength] 500 mg tablet 1,000 mg PO Q6H PRN (Reason: fever or pain) Qty: 20 0RF cefdinir 300 mg capsule 300 mg PO BID 7 Days Qty: 14 0RF (DME) blood sugar diagnostic Strip See Rx Instructions Not Applicable QID Qty: 10 Rx Instructions: As directed (DME) blood pressure monitor [Blood Pressure Kit] Kit See Rx Instructions .ROUTE .MEDSUPPLY Qty: 1 0RF Rx Instructions: As directed (DME) humidifiers [Cool Mist Humidifier] Misc See Rx Instructions .ROUTE .MEDSUPPLY Qty: 1 0RF Rx Instructions: As directed (DME) Ultra-Light Rollator Misc See Rx Instructions .Route Qty: 1 0RF Rx Instructions: As directed nystatin 100,000 unit/gram powder 1 appl topical TID PRN (Reason: rash) Qty: 60 0RF amitriptyline 25 mg tablet 25 mg PO BEDTIME 30 Days Qty: 30 3RF albuterol sulfate 90 mcg/actuation HFA aerosol inhaler 2 puff PO Q4-6H PRN (Reason: bronchospasm) 90 Days Qty: 90 1RF flecainide 100 mg tablet 100 mg PO BID Qty: 180 1RF Diafoods Thick-It Powder In Packet 1 ea PO QID PRN (Reason: dysphagia) 90 Days Qty: 200 1RF clotrimazole-betamethasone 1-0.05 % cream 1 appl topical BID 30 Days Qty: 45 3RF cetirizine 10 mg tablet 10 mg PO DAILY 30 Days Qty: 30 1RF fluticasone propionate [Flonase Allergy Relief] 50 mcg/actuation spray,suspension 1 spray intranasal BID 30 Days Qty: 16 0RF Rx Instructions: administer into each nostril ciprofloxacin-dexamethasone [Ciprodex] 0.3-0.1 % drops,suspension 4 drp otic (ears) BID 7 Days Qty: 7.5 0RF pantoprazole 40 mg tablet,delayed release (DR/EC) 40 mg PO DAILY 30 Days Qty: 30 1RF sennosides [Senna Lax] 8.6 mg tablet 17.2 mg PO BEDTIME 30 Days Qty: 60 2RF oxycodone 5 mg tablet 5 mg PO BID 30 Days Qty: 60 0RF lidocaine [Lidoderm] 5 % adhesive patch,medicated 1 patch topical DAILY 30 Days Qty: 30 0RF Rx Instructions: leave on most painful area for up to 12 hrs Referrals: [facility] [Provider Group] - 2 days Stand Alone Forms: Work/School Release
== END 2022-11-23 16:24 | disposition home or self-care (01) ==
PROVIDERS: Emergency Provider Emergency Medicine Emergency Medical Services
DX: M54.16 Radiculopathy, lumbar region (principal); M54.50 Low back pain, unspecified; E11.9 Type 2 diabetes mellitus without complications; I10 Essential (primary) hypertension; E78.5 Hyperlipidemia, unspecified; Z95.0 Presence of cardiac pacemaker; Z98.51 Tubal ligation status; Z79.4 Long term (current) use of insulin; Z79.899 Other long term (current) drug therapy
CPT/HCPCS: 99283; 99284

== ENCOUNTER 2022-11-30 14:51 | Outpatient (AMB) | payer OTHER, SELFPAY ==
--- NOTE | 2022-11-30 16:19 | MHC.OFFWIV ---
Intake Vital Signs 11/30/22 16:25 Height 5 ft 3 in BP 128/64 Blood Pressure Location Lt brachial Position Sitting Pulse 80 Pulse Source Pulse Oximeter Temp 98.5 F Temp Source Oral Pulse Oximetry (%) 98 Oxygen Delivery Method Room Air Intake Visit Reasons: EP LT leg pain [phone] Intake Note: Patient her for left lower leg pain, she does have a bit of edema. pt states the pain has been bad for a few days now. Patient Tobacco Use Status: Never used Tobacco Allergies [facility]agliflo[facility] [[facility]] Allergy (Unknown, Verified 11/30/22 16:48) yeast infection metformin Allergy (Unknown, Verified 11/30/22 16:48) Diarrhea amitriptyline Adverse Reaction (Intermediate, Verified 11/30/22 16:48) Anxiety clindamycin Adverse Reaction (Mild, Verified 11/30/22 16:48) Itching Do you need a note to return to daycare/school/sports/work: No HPI EP LT leg pain [phone] HPI Details 77-year-old female presents to the office for a sick visit. Patient comes in a wheelchair accompanied by her daughter. Daughter is translating. Complaining of pain in the calf for the past 3 days. Patient has long history of sciatica and left-sided leg pain. [facility] Medical History Afib Arthritis COPD (chronic obstructive pulmonary disease) Coronary artery disease Decompensated heart failure Fibromyalgia Foot ulcer NADEGE (generalized anxiety disorder) GERD (gastroesophageal reflux disease) HTN (hypertension) Insulin dependent type 1 diabetes mellitus Mass of right kidney Pacemaker Unstable angina URI (upper respiratory infection) Surgical History History of cataract surgery History of pacemaker Family History Father No problems noted. Mother No problems noted. 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 Pain in the calf muscle. Assessment & Plan Assessment & Plan (1) Left leg pain: Code(s): M79.605 - Pain in left leg Plan: Muscle relaxants called in. Lidoderm patch called in. Patient was advised to follow-up with her primary care provider. Medications: Discontinued gabapentin 400 mg PO BID 30 days 60 caps 3RF G62.9 - Polyneuropathy, unspecified oxycodone 5 mg PO BID 30 days 60 tabs 0RF M54.5 - Low back pain insulin aspart U-100 Per sliding scale 0-24 units See Protocol subcut TIDAC 15 mL 0RF E10.9 - Type 1 diabetes mellitus without complications docusate sodium 100 mg PO BID PRN 30 caps 0RF Constipation K59.00 - Constipation, unspecified Coding Level of Care Code Est Pt Level 3 (73760) Diagnoses Left leg pain M79.605
[2022-11-30 16:25] VITALS: BP 128/64; PULSE 80; TEMP 36.9; O2SAT 98
== END 2022-11-30 16:53 | disposition home or self-care (01) ==
PROVIDERS: Visit Provider Internal Medicine
DX: M79.605 Pain in left leg (principal)
CPT/HCPCS: 99213

== ENCOUNTER 2022-12-01 04:13 | Emergency (ER) | payer OTHER, SELFPAY ==
--- NOTE | ~2022-12-01 | XR_ITS ---
EXAMINATION: XR HIP, LEFT CLINICAL INFORMATION: Chronic pain COMPARISON: 08/20/2021 TECHNIQUE: Two views of the left hip. AP pelvis. FINDINGS: Alignment across the hips is anatomic. There are moderate degenerative changes of the bilateral hips with joint space narrowing and spurring. No acute fracture is seen. Sacroiliac joints and pubic symphysis appear intact with degenerative change. Vascular calcifications are noted. XR/XR hip LT min 2V IMPRESSION: No acute findings identified. Moderate degenerative changes of the hips.
[2022-12-01 04:22] VITALS: BP 136/54; BP 140/76; PULSE 80; RESP 18; TEMP 36.9; O2SAT 97; O2SAT 99; BMI 45.1
[2022-12-01 04:25] VITALS: BP 120/54; PULSE 79; RESP 16; TEMP 36.9; O2SAT 99
[2022-12-01 06:00] VITALS: BP 96/46; PULSE 80; RESP 16; TEMP 36.6; O2SAT 100
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
[2022-12-01] MEDS: Acetaminophen 325 MG TABLET 975 MG PO (06:39)
[2022-12-01 06:47] VITALS: BP 148/49; PULSE 84; RESP 18; O2SAT 99
--- NOTE | 2022-12-01 06:50 | PC.NURSE ---
Patient arrived via ems from home with reports of left hip and leg pain. Bp soft while pt laying down 91/46. PT unable to tolerate sitting up. vss otherwise stable. pitting edema noted on bitlateral ankle. Weak pedal pulse. Pt on pradaxa anticoag. two stage 2 pressure wounds cleaned and dressing applied. Medication administered as per
--- NOTE | 2022-12-01 07:44 | PC.NURSE ---
Alert and oriented. 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 PT at bedside. Patient stating to hold oxy until after she works with therapy. Report to be called to overflow.
--- NOTE | 2022-12-01 07:57 | PC.NURSE ---
Patient declined oxycodone- stating she is okay right now
--- NOTE | 2022-12-01 08:02 | PC.NURSE ---
Patient declined oxycodone stating it makes her stomach feel funny. Incont of stool x 1. Report called to overflow and transport notified.
--- NOTE | 2022-12-01 08:08 | PC.NURSE ---
Patient aware that she is being transferred to [facility], provided with phone to call family
--- NOTE | 2022-12-01 08:31 | PC.NURSE ---
Son called stating his mother is too weak to go home. States family is calling frequently for ems to transport patient to hospital and she needs rehab. Son aware that patient is being transferred to overflow and case management is working on rehab placement
[2022-12-01 09:10] LABS: Glucose, Whole Blood 103 mg/dL (60-115)
[2022-12-01 09:59] LABS: COVID-19 Test Negative (Negative); IDNOW Serial# 08D9AD1C
--- NOTE | 2022-12-01 11:34 | PC.NURSE ---
Bell (HCP and daughter) called and requested to leave her number in pt.'s chart - [phone]
[2022-12-01 12:01] LABS: Glucose, Whole Blood 80 mg/dL (60-115)
--- NOTE | 2022-12-01 13:07 | MHC.CM.ED ---
Addendum entered by Shivani Burnett 12/01/22 13:29: [facility] is able to offer a private room and is in the process of going for [facility]. Original Note: Received case management consult from Dr Coughlin overnight. Patient came to ER due to leg pain. Physical therapy eval completed. Short term rehab is recommended. Spoke with patient's HCP/sister, Bell, via telephone at [phone] at Cullen's request. Patient's son stated patient keeps falling. Bell does not believe this to be true because Cullen has cameras in patient's home and hasn't seen this. PCP verified. Copy of HCP verified to be on file. Patient received 2 Pfizer and 1 Moderna vaccine. Due to difficulty with bed availability locally, referral broadcasted in [facility] to all facilities within 25 miles that are contracted with patient's insurance. At this time, [facility], [facility], [facility] and [facility] are the only facilities able to offer a bed. [facility] does not want patient to go to [facility]. Any of the [facility] facilities would be ok with Bell. A private room would be a preference. David from [facility] made aware and will check to see if either of the 3 buildings have a private room to offer. Continue to monitor for d/c needs.
--- NOTE | 2022-12-01 13:22 | PHA.MEDREC ---
Pharmacy Consult ? Medication Reconciliation Pharmacy has completed the medication reconciliation. Spoke to patient's daughter Bell to confirm meds.
[2022-12-01 14:20] VITALS: BP 140/54; PULSE 79; RESP 18; O2SAT 99
--- NOTE | 2022-12-01 16:54 | MHC.CM.ED ---
Insurance auth has been obtained. Patient can leave at 530pm. Corey KITCHEN booked. Med nec with chart. Patient, Ashley Luu RN and Vidal GIRON aware. Continue to monitor for d/c needs.
[2022-12-01 16:55] LABS: Glucose, Whole Blood 102 mg/dL (60-115)
== END 2022-12-01 18:53 | disposition skilled nursing facility (03) ==
PROVIDERS: Physician Assistant Medical; Emergency Provider Emergency Medicine; PCP Physician Assistant
DX: G89.29 Other chronic pain (principal); M25.552 Pain in left hip; I10 Essential (primary) hypertension; E11.9 Type 2 diabetes mellitus without complications; I48.91 Unspecified atrial fibrillation; Z95.0 Presence of cardiac pacemaker; Z79.4 Long term (current) use of insulin; Z79.899 Other long term (current) drug therapy; Z20.822 Contact with and (suspected) exposure to COVID-19
CPT/HCPCS: 73502; 82947; 87635; 97162; 99285

== ENCOUNTER 2023-02-07 00:50 | Inpatient (IN) | payer OTHER, SELFPAY ==
[2023-02-07] VITALS (14 sets, daily range): BP systolic 115–162; BP diastolic 47–99; PULSE 77–92; RESP 16–20; TEMP 36.3–37.3; O2SAT 90–99; BMI 43.8; BMI 44.9
--- NOTE | ~2023-02-07 | CT_ITS ---
EXAMINATION: CT ABDOMEN AND PELVIS WITHOUT CONTRAST CLINICAL INFORMATION: Distended, nausea COMPARISON: 07/10/2022 TECHNIQUE: Multidetector volumetric imaging was performed from the superior aspect of the liver through the pubic symphysis. Sagittal and coronal reformatted images were obtained on the technologist's workstation. This CT examination was performed using dose optimization techniques as appropriate, variously including the following: *Automated exposure control *Adjustment of mA and/or kV according to patient size (this includes techniques or standardized protocols for targeted exams where dose is matched to indication/reason for exam; i.e. extremities or head) *Use of iterative reconstruction technique DLP: 1011 mGy-cm FINDINGS: Limited evaluation in some regions due to motion artifact. LUNG BASES: Small right pleural effusion. LIVER, GALLBLADDER, AND BILIARY TREE: The liver is normal in size, shape, and attenuation. No focal hepatic lesion or biliary ductal dilatation is present. Patient is status post cholecystectomy. PANCREAS: Unremarkable. SPLEEN: Unremarkable. ADRENAL GLANDS: Unremarkable. KIDNEYS AND URETERS: Suboptimally assessed without intravenous contrast. No hydronephrosis or obstructing calculus bilaterally. Small left lower pole renal cyst; no follow-up recommended. Identified right renal mass is not adequately assessed on noncontrast exam. BLADDER: Unremarkable. GASTROINTESTINAL TRACT/ABDOMINAL WALL: There is prominent fluid distention of the stomach. Multiple dilated predominantly fluid-filled small bowel loops are present throughout the abdomen. Transition from dilated to collapsed small bowel appears to occur at the location of a periumbilical hernia containing a focal segment of small bowel, as bowel distal to this region is collapsed. Appearance is consistent with small bowel obstruction. Much of the colon is collapsed. Trace free fluid is present. No free air is seen. LYMPH NODES: Normal. VASCULAR: Moderate atherosclerotic calcification. PELVIC VISCERA: Scattered uterine calcifications suggest underlying fibroids. OSSEOUS STRUCTURES: Multilevel degenerative changes in the spine. There is partial destruction of the L4 vertebral body superiorly, new since 07/10/2022; this could be due to degenerative change, as the adjacent L3 vertebral body appears intact. CT/CT abdomen pelvis wo IV con IMPRESSION: 1. Small bowel obstruction with transition point at the location of a periumbilical hernia containing a focal segment of small bowel. 2. Partial destruction of the L4 vertebral body superiorly. This could be secondary to degenerative change, as the adjacent L3 vertebral body appears intact. This may be further assessed with MRI if there is clinical concern for discitis/osteomyelitis. 3. Small right pleural effusion. 4. Previously identified right renal mass is not adequately visualized on this noncontrast exam.
--- NOTE | 2023-02-07 01:02 | ED.ABDPAIN ---
HPI - Abdominal Pain General Chief Complaint: Abdominal Pain Stated Complaint: abdomen pain Time Seen by Provider: 02/07/23 00:58 Source: patient, old records reviewed and lang interpreter Mode of arrival: EMS Limitations: no limitations History of Present Illness HPI narrative: 77 yo female with PMH of CHF, COPD, GERD, hypomagnesemia, abdominal hernia, anxiety, chronic leg edema, IDDM, HTN, HLD, obesity, UTI, chronic back pain, PPM, PAF on pradaxa here with c/o nausea and burning epigastric pain since noon with dysuria. Passed gas and had BM. Unable to eat dinner due to it. Prior tubal ligation in the past. No other symptoms at this time. Denies hx of bowel obstructions MD elicited complaint: abdominal pain Pertinent past history: none Onset (ago): day(s) (12) Pain Consistency: constant Location: epigastric Severity: moderate Quality: burning Radiation: none Migration to: no migration Exacerbating factors: eating Relieving factors: nothing Associated symptoms: nausea Related Data Home Medications Medication Instructions Recorded Confirmed blood sugar diagnostic #10 ea 03/12/20 12/01/22 latanoprost 0.005 % eye drops 1 drp ophthalmic (eye) BEDTIME 04/24/21 12/01/22 docusate sodium 100 mg capsule 100 mg PO DAILY 09/10/22 12/01/22 insulin aspart U-100 100 unit/mL See Protocol subcut TIDAC PRN 09/10/22 12/01/22 (3 mL) subcutaneous pen (Novolog Hyperglycemia FlexPen U-100 Insulin aspart) albuterol sulfate 90 mcg/actuation 2 puff PO Q6H PRN bronchospasm 12/01/22 12/01/22 aerosol inhaler cetirizine 10 mg tablet 10 mg PO DAILY PRN Allergy Symptoms 12/01/22 12/01/22 fluticasone propionate 50 1 spray intranasal DAILY PRN 12/01/22 12/01/22 mcg/actuation nasal Allergy Symptoms spray,suspension (Flonase Allergy Relief) insulin degludec 100 unit/mL (3 50 unit subcut BID 12/01/22 12/01/22 mL) subcutaneous pen (Tresiba FlexTouch U-100 insulin) pantoprazole 40 mg tablet,delayed 40 mg PO DAILY@0630 12/01/22 12/01/22 release polyethylene glycol 3350 17 gram 17 g PO DAILY 12/01/22 12/01/22 oral powder packet (Miralax) sennosides 8.6 mg tablet (Senna 8.6 mg PO BID 12/01/22 12/01/22 Lax) Previous Rx's Medication Instructions Recorded blood pressure monitor (Blood #1 ea 03/12/20 Pressure Kit) humidifiers (Cool Mist Humidifier) #1 ea 03/12/20 Shower Chair (Chair, shower) #1 ea 09/14/20 walker (Ultra-Light Rollator misc) #1 ea 06/30/21 lancing device with lancets kit #1 ea 03/24/22 losartan 100 mg tablet 100 mg PO DAILY #90 tabs 05/11/22 dabigatran etexilate 150 mg 150 mg PO BID 90 days #180 caps 05/12/22 capsule (Pradaxa) colchicine (gout) 0.6 mg tablet 0.6 mg PO DAILY #90 tabs 07/08/22 (Colcrys) isosorbide mononitrate 30 mg 30 mg PO DAILY 90 days #90 tabs 07/08/22 tablet,extended release 24 hr simvastatin 40 mg tablet 40 mg PO BEDTIME #90 tabs 07/08/22 sitagliptin phosphate 50 mg tablet 50 mg PO DAILY 90 days #90 tabs 07/08/22 (Januvia) amitriptyline 25 mg tablet 25 mg PO BEDTIME 30 days #30 tabs 09/14/22 flecainide 100 mg tablet 100 mg PO BID #180 tabs 09/14/22 blood sugar diagnostic (OneTouch #100 ea 10/07/22 Ultra Test strips) blood-glucose meter (OneTouch #1 ea 10/07/22 Ultra2 Meter) lancets 30 gauge (OneTouch #200 ea 10/07/22 UltraSoft 2 Lancet) pen needle, diabetic 32 gauge x #300 ea 10/17/22 (BD Laury 2nd Gen Pen Needle) hydrocortisone 1 % topical cream 1 appl topical BID PRN itching 10/18/22 (Cortisone (hydrocortisone)) #28.4 grams gabapentin 300 mg capsule 300 mg PO BID 30 days #60 caps 11/02/22 compr.stocking,knee,long,x-lrg #12 ea 11/08/22 atenolol 50 mg tablet 50 mg PO DAILY #30 tabs 12/13/22 furosemide 40 mg tablet 40 mg PO DAILY 90 days #90 tabs 01/10/23 hospital bed #1 ea 01/31/23 furosemide 20 mg tablet (Lasix) 20 mg PO DAILY 7 days #7 tabs 02/01/23 lidocaine 5 % topical patch 1 patch topical DAILY PRN pain #15 02/01/23 ea acetaminophen 500 mg tablet 1,000 mg (2 x 500 mg) PO Q6H PRN 02/06/23 (Tylenol Extra Strength) fever or pain #20 tabs oxycodone 5 mg tablet 5 mg PO BID severe pain (scale 02/06/23 score 7-10) 28 days #56 tabs Allergies Allergy/AdvReac Type Severity Reaction Status Date / Time dapagliflozin [From [facility]] Allergy Unknown yeast Verified 11/30/22 16:48 infection metformin Allergy Unknown Diarrhea Verified 11/30/22 16:48 amitriptyline AdvReac Intermediate Anxiety Verified 11/30/22 16:48 clindamycin AdvReac Mild Itching Verified 11/30/22 16:48 Review of Systems Review of Systems Constitutional : No Weight loss, No Fever, No Chills ENT/Mouth : No sore throat, No Rhinorrhea Eyes: No Swelling, No Redness Cardiovascular : No Chest Pain, No SOB, NoEdema Respiratory : No Cough, No Sputum, No Wheezing Gastrointestinal : Positive Nausea, no Vomiting, no Diarrhea, positive abdominal Pain, No Hematochezia, No Melena Genitourinary : No Dysuria, No Urinary Frequency, No Hematuria, No Urgency Musculoskeletal : No joint pain, No Myalgias, No Joint Swelling Skin : No Skin Lesions, No rash Neuro : No Weakness, No Numbness, No Dizziness, No Headache Psych : No Anxiety/Panic, No Depression Heme/Lymph: No Bruising, No Lymphadenopathy Endocrine : No Polyuria, No Polydipsia All other systems reviewed and are negative. [facility] Past Medical History Source: old records reviewed Medical History Unstable angina URI (upper respiratory infection) Mass of right kidney NADEGE (generalized anxiety disorder) GERD (gastroesophageal reflux disease) Decompensated heart failure HTN (hypertension) Arthritis Insulin dependent type 1 diabetes mellitus Foot ulcer Fibromyalgia Coronary artery disease COPD (chronic obstructive pulmonary disease) Pacemaker Afib Surgical History History of cataract surgery History of pacemaker Family History Family History Father No problems noted. Mother No problems noted. 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) Alcohol intake: never Patient Tobacco Use Status: Never used Tobacco Smoked in Last 30 Days: No e-Cigarette/Vaping Use: Never Used Second Hand Smoke Exposure: No Use of substances other than those prescribed or required for medical reasons: No Advance Directives: Yes Advance Directives on File: Yes Advance Directives Date on File: 06/17/20 service: No Current occupational status: retired and disabled Cognitive needs: Yes Hearing needs: No Vision needs: Yes Physical Exam ED Vital Signs: Vital Signs - 24 hr 02/07/23 01:02 02/07/23 01:05 Temperature 97.5 F 97.5 F Pulse Rate 80 80 Respiratory Rate 16 16 Blood Pressure 162/71 H 162/71 H Pulse Oximetry 94 94 Oxygen Delivery Method Room Air Room Air BMI result Body Mass Index 43.8 Appearance: Alert. Oriented X3. No acute distress. Eyes: Pupils equal, round and reactive to light. ENT: Pharynx normal. Neck: Normal inspection. Neck supple. CVS: Normal heart rate and rhythm. Pulses normal. Respiratory: No respiratory distress. Breath sounds normal. Abdomen: Soft and obese mild distention ventral hernia felt normal color mild epigastric ttp Skin: Skin warm and dry. Normal skin color. Normal skin turgor. Extremities: bilateral 1-2+ pitting lower extremity edema. No calf ttp chronic shiny not hot pink anterior skin changes to both shins Neuro: Oriented X 3. No motor deficit. No sensory deficit. Course Course Course Narrative: no clinical concern for osteo or disciitis aware of CT scan Reevaluation(s) Reevaluation #1: can admit medicine to do consult - Dr. Putnam will admit - will ask for praxbind in AM. Medical Decision Making Medical Decision Making MDM Narrative: 77 yo female with PMH of CHF, COPD, GERD, hypomagnesemia, abdominal hernia, anxiety, chronic leg edema, IDDM, HTN, HLD, obesity, UTI, chronic back pain, PPM, PAF on pradaxa here with abdominal pain and nausea - + BM and flatus but mild distention at this time will obtain labs, UA, EKG and CT scan for obstruction, constipation, diverticulitis, IV morphine for pain Differential Diagnosis Differential Diagnoses: The differential diagnosis associated with the presentation includes renal colic, obstruction, diverticulosis, lytes, constipation Admission/Observation Consideration of admission/observation: Escalation of care including admission/observation considered admit for SBO Consult Healthcare Provider Management of the patient was discussed with: Hospitalist (will consult) and Military Lawyer (Dr. Putnam aware - no plan for NG tube at this time given pradaxa use and no vomiting, will reverse in AM) Lab Data [facility] Lab Attestation statement: I reviewed the patient's lab results. repletion of magnesium 02/07/23 01:23 02/07/23 01:23 Labs: Lab Results 02/07/23 02/07/23 Range/Units 00:57 01:23 WBC 13.8 H (4.8-10.8) X10*3/uL RBC 5.04 (4.20-5.50) X10*6/uL Hgb 14.0 (12.0-16.0) g/dl Hct 42.8 (37.0-47.0) % MCV 84.9 (80.0-98.0) fL MCH 27.8 (27.0-33.0) pg MCHC 32.7 (31.0-35.0) g/dl RDW 15.9 (11.0-16.0) % Plt Count 244 (160-400) X10*3/uL MPV 10.1 (9.4-12.3) fL Immature Gran % (Auto) 0.8 H (0.0-0.4) % Neut % (Auto) 91.7 H (45-73) % Lymph % (Auto) 5.2 L (20-40) % Waldo % (Auto) 2.2 (2-11) % Eos % (Auto) 0.0 (0-4) % Baso % (Auto) 0.1 (0-2) % Lymph # (Auto) 0.7 L (1.2-4.9) X10*3/uL Waldo # (Auto) 0.3 (0.1-1.2) X10*3/uL Eos # (Auto) 0.0 (0.0-0.4) X10*3/uL Baso # (Auto) 0.0 (0.0-0.2) X10*3/uL Abs Immat Gran (auto) 0.11 H (0.00-0.03) X10*3/uL Absolute Neuts (auto) 12.6 H (2.0-8.3) x10*3/uL Absolute Nucleated RBC 0.000 (0.0-0.012) X10*3/uL Nucleated RBC % (auto) 0.0 (0.0-0.2) /100WBC Smear Tech's Comments VERIFIED Sodium 136 (135-145) mmol/L Potassium 4.7 D (3.3-5.1) mmol/L Chloride 101 (96-108) mmol/L Carbon Dioxide 24 (22-29) mmol/L Anion Gap 16 (12-20) BUN 11 (9-16) mg/dL Creatinine 0.73 (0.5-1.4) mg/dL Estim Creat Clear Calc 86.4 Estimated GFR > 60 POC Glucose 269 H (60-115) mg/dL Random Glucose 303 H (60-115) mg/dL Calcium 10.8 H D (8.4-10.2) mg/dL Magnesium 1.5 L (1.6-2.6) mg/dL Total Bilirubin 0.7 (0.0-1.0) mg/dL Direct Bilirubin 0.3 (0.0-0.5) mg/dL AST 11 (5-31) U/L ALT 8 (0-31) U/L Alkaline Phosphatase 117 (39-117) U/L Troponin I High Sens < 2.7 D (<3.5-17.0) ng/L Total Protein 7.2 (6.5-8.0) g/dL Albumin 4.0 (3.5-5.0) g/dL Lipase 7 L (8-78) U/L COVID-19 (AYANNA) Negative (Negative) COVID-19 Clin Com See Note Independent Interpretation I performed an independent interpretation of an: EKG and CT Scan (SBO no concern for osteo or disc infection) Interpretation: Rate: 80 Rhythm: paced [place]: left wide QRS complex. ST T wave : no [place], nonspecific ST T wave changes qTC: normal prior studies: unchanged The study has been interpreted contemporaneously by me. . Radiology Impression Discussion of test interpretation with radiology: I have reviewed the radiologist's reading. Independent Historian Clinical information obtained from an independent historian. History obtained from or confirmed by: EMS External Record Review External record reviewed: Inpatient record Social Determinants Patient?s care significantly limited by Social Determinants of Health including: Problems related to primary support group Medications Administered Generic Name Dose Route Start Last Admin Trade Name Freq PRN Reason Stop Dose Admin Magnesium Sulfate 2 gm in 50 mls @ 25 mls/hr 02/07/23 01:51 02/07/23 02:06 Magnesium Sulfate/H2o IV 02/07/23 03:50 25 mls/hr ONCE ONE Administration Discontinued Medications Generic Name Dose Route Start Last Admin Trade Name Freq PRN Reason Stop Dose Admin Morphine Sulfate 4 mg 02/07/23 01:10 02/07/23 01:17 Morphine Sulfate 4 Mg/Ml Cartridge IVPUSH 02/07/23 01:11 4 mg ONCE ONE Administration Protocol Ondansetron HCl 4 mg 02/07/23 01:10 02/07/23 01:17 Ondansetron Hcl 4 Mg/2 Ml Vial IVPUSH 02/07/23 01:11 4 mg ONCE ONE Administration Discharge Plan Discharge Clinical Impression: Hypomagnesemia, SBO (small bowel obstruction) Patient Disposition: Admitted As Inpatient
--- NOTE | 2023-02-07 01:07 | PC.NURSE ---
Pt presents to ED via EMS for abd pain. Pt reports pain started a few hours ago, and comes with nausea. Pt denies vomiting, diarrhea, or trouble urinating. EMS placed a 20g IV in the left wrist, and administered approx 100mL normal saline. Pt is welsh speaking only, medical physiologist used. Pt is A&Ox4, GCS 15, with warm, dry skin. Per EMS, pt does not ambulate at home. Dr Aguirre at bedside with american sign language interpreter.
--- NOTE | 2023-02-07 01:11 | ECG_ITS ---
Test Reason : ABD PAIN Blood Pressure : / mmHG Vent. Rate : 080 BPM Atrial Rate : 000 BPM P-R Int : 000 ms QRS Dur : 150 ms QT Int : 408 ms P-R-T Axes : 000 085 148 degrees QTc Int : 470 ms Wide QRS rhythm Left bundle branch block Lateral infarct , age undetermined Abnormal ECG When compared with ECG of 10-SEP-2022 10:53, No other significant changes seen Referred By: Gifty Aguirre Electronically Signed By:JOSE LESLIE
[2023-02-07] MEDS: ondansetron HCL 4 MG/2 ML VIAL IVPUSH (01:17)
[2023-02-07] MEDS: Morphine Sulfate 4 MG/ML CARTRIDGE IVPUSH ×2 (01:17→11:50)
[2023-02-07 01:28] LABS: Glucose, Whole Blood 269 mg/dL (60-115)
[2023-02-07 01:31] LABS: Basophils Percent Auto 0.1 % (0-2); Hematocrit 42.8 % (37.0-47.0); Imm Gran Abs Auto 0.11 X10*3/uL (0.00-0.03); Imm Gran Pct Auto 0.8 % (0.0-0.4); Lymphocytes Absolute Auto 0.7 X10*3/uL (1.2-4.9); Lymphocytes Percent Auto 5.2 % (20-40); MANUAL DIFF FLAG SCAN; Mean Corpuscular HGB Conc 32.7 g/dl (31.0-35.0); Mean Corpuscular Hemoglobin 27.8 pg (27.0-33.0); Mean Corpuscular Volume 84.9 fL (80.0-98.0); Mean Platelet Volume 10.1 fL (9.4-12.3); Monocytes Absolute Auto 0.3 X10*3/uL (0.1-1.2); Monocytes Percent Auto 2.2 % (2-11); Neutrophils Absolute Auto 12.6 x10*3/uL (2.0-8.3); Neutrophils Percent Auto 91.7 % (45-73); Platelet Count 244 X10*3/uL (160-400); Red Blood Count 5.04 X10*6/uL (4.20-5.50); Red Cell Distribution Width 15.9 % (11.0-16.0); SCAN SMEAR FLAG 1; White Blood Count 13.8 X10*3/uL (4.8-10.8)
[2023-02-07 01:45] LABS: COVID-19 Test Negative (Negative); IDNOW Serial# 08D9AD1C
[2023-02-07 01:46] LABS: Alanine Aminotransferase 8 U/L (0-31); Alkaline Phosphatase 117 U/L (39-117); Anion Gap 16 (12-20); Aspartate Amino Transferase 11 U/L (5-31); Bilirubin Direct 0.3 mg/dL (0.0-0.5); Bilirubin Total 0.7 mg/dL (0.0-1.0); Blood Urea Nitrogen 11 mg/dL (9-16); Calcium 10.8 mg/dL (8.4-10.2); Carbon Dioxide 24 mmol/L (22-29); Chloride 101 mmol/L (96-108); Creatinine Clr Calc Pharmacy 86.4; Estimated Glomerular Filt Rate > 60; Glucose Random 303 mg/dL (60-115); Lipase 7 U/L (8-78); Magnesium 1.5 mg/dL (1.6-2.6); Potassium 4.7 mmol/L (3.3-5.1); Sodium 136 mmol/L (135-145); Total Protein 7.2 g/dL (6.5-8.0)
--- NOTE | 2023-02-07 01:47 | PC.NURSE ---
Pt reporting pain and itchiness in her legs. States she can't walk up her stairs at home, and that her family doesn't want to help.
[2023-02-07 01:56] LABS: Troponin-I High Sensitivity < 2.7 ng/L (<3.5-17.0)
[2023-02-07 02:01] LABS: SLIDE REVIEW VERIFIED
[2023-02-07] MEDS: Magnesium Sulfate/H2O 2 GM/50 ML PIGGYBACK IV (02:06)
--- NOTE | 2023-02-07 06:00 | HO.PM.IMCN ---
History of Present Illness Data of Consult Service Date: 02/07/23 Primary Care Provider: Micheal Biggs PA-C [facility] Medical History Unstable angina URI (upper respiratory infection) Mass of right kidney NADEGE (generalized anxiety disorder) GERD (gastroesophageal reflux disease) Decompensated heart failure HTN (hypertension) Arthritis Insulin dependent type 1 diabetes mellitus Foot ulcer Fibromyalgia Coronary artery disease COPD (chronic obstructive pulmonary disease) Pacemaker Afib Family History Father No problems noted. Mother No problems noted. 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) Alcohol intake: never Patient Tobacco Use Status: Never used Tobacco Smoked in Last 30 Days: No e-Cigarette/Vaping Use: Never Used Second Hand Smoke Exposure: No Use of substances other than those prescribed or required for medical reasons: No Advance Directives: Yes Advance Directives on File: Yes Advance Directives Date on File: 06/17/20 service: No Current occupational status: retired and disabled Cognitive needs: Yes Hearing needs: No Vision needs: Yes Meds Allergies Allergy/AdvReac Type Severity Reaction Status Date / Time dapagliflozin [From [facility]] Allergy Unknown yeast Verified 11/30/22 16:48 infection metformin Allergy Unknown Diarrhea Verified 11/30/22 16:48 amitriptyline AdvReac Intermediate Anxiety Verified 11/30/22 16:48 clindamycin AdvReac Mild Itching Verified 11/30/22 16:48 Active Medications: Current Medications Cefazolin Sodium/Dextrose (Ancef) 2 gm in 50 mls @ 100 mls/hr IV PREOP ONE Stop: 02/07/23 06:09 Sodium Chloride (0.9 % Sodium Chloride Flush 3 Ml Syringe) 3 ml IVFLUSH QSHIFT [facility] Home Medications Medication Instructions Recorded Confirmed Last Taken Type blood sugar diagnostic #10 ea 03/12/20 12/01/22 11/30/22 History latanoprost 0.005 % eye drops 1 drp ophthalmic (eye) BEDTIME 04/24/21 12/01/22 11/30/22 History docusate sodium 100 mg capsule 100 mg PO DAILY 09/10/22 12/01/22 11/30/22 History insulin aspart U-100 100 unit/mL See Protocol subcut TIDAC PRN 09/10/22 12/01/22 Unknown History (3 mL) subcutaneous pen (Novolog Hyperglycemia FlexPen U-100 Insulin aspart) albuterol sulfate 90 mcg/actuation 2 puff PO Q6H PRN bronchospasm 12/01/22 12/01/22 Unknown History aerosol inhaler cetirizine 10 mg tablet 10 mg PO DAILY PRN Allergy Symptoms 12/01/22 12/01/22 Unknown History fluticasone propionate 50 1 spray intranasal DAILY PRN 12/01/22 12/01/22 Unknown History mcg/actuation nasal Allergy Symptoms spray,suspension (Flonase Allergy Relief) insulin degludec 100 unit/mL (3 50 unit subcut BID 12/01/22 12/01/22 11/30/22 History mL) subcutaneous pen (Tresiba FlexTouch U-100 insulin) pantoprazole 40 mg tablet,delayed 40 mg PO DAILY@0630 12/01/22 12/01/22 11/30/22 History release polyethylene glycol 3350 17 gram 17 g PO DAILY 12/01/22 12/01/22 11/30/22 History oral powder packet (Miralax) sennosides 8.6 mg tablet (Senna 8.6 mg PO BID 12/01/22 12/01/22 11/30/22 History Lax) Physical Exam Vital Signs and Narrative: Vital Signs: Last Vital Signs Temp 98.1 F 02/07/23 03:42 Pulse 79 02/07/23 03:42 Resp 17 02/07/23 03:42 BP 153/47 H 02/07/23 03:42 Pulse Ox 92 02/07/23 03:42 O2 Del Method Room Air 02/07/23 03:42 BMI result Body Mass Index 43.8 Results Labs 02/07/23 01:23 02/07/23 01:23 Labs: Laboratory Results - last 24 hr 02/07/23 02/07/23 00:57 01:23 MCV 84.9 MCH 27.8 MCHC 32.7 RDW 15.9 Plt Count 244 MPV 10.1 Immature Gran % (Auto) 0.8 H Neut % (Auto) 91.7 H Lymph % (Auto) 5.2 L [place] % (Auto) 2.2 Eos % (Auto) 0.0 Baso % (Auto) 0.1 Lymph # (Auto) 0.7 L [place] # (Auto) 0.3 Eos # (Auto) 0.0 Baso # (Auto) 0.0 Abs Immat Gran (auto) 0.11 H Absolute Neuts (auto) 12.6 H Absolute Nucleated RBC 0.000 Nucleated RBC % (auto) 0.0 Smear Tech's Comments VERIFIED Anion Gap 16 Estim Creat Clear Calc 86.4 Estimated GFR > 60 POC Glucose 269 H Random Glucose 303 H Calcium 10.8 H D Magnesium 1.5 L Total Bilirubin 0.7 Direct Bilirubin 0.3 AST 11 ALT 8 Alkaline Phosphatase 117 Total Protein 7.2 Albumin 4.0 Lipase 7 L COVID-19 (AYANNA) Negative COVID-19 Clin Com See Note Imaging Radiologist's Impressions: Impressions Abdomen/Pelvis CT 02/07/23 01:49 IMPRESSION: 1. Small bowel obstruction with transition point at the location of a periumbilical hernia containing a focal segment of small bowel. 2. Partial destruction of the L4 vertebral body superiorly. This could be secondary to degenerative change, as the adjacent L3 vertebral body appears intact. This may be further assessed with MRI if there is clinical concern for discitis/osteomyelitis. 3. Small right pleural effusion. 4. Previously identified right renal mass is not adequately visualized on this noncontrast exam. Assessment and Plan Time Spent With Patient Time: Total time managing care of this patient today ____ minutes.
--- NOTE | 2023-02-07 06:21 | PC.NURSE ---
Pt has a wound on the sacrum area, two open sores, Stage 2. Pt stated her daughter has been putting a cream on the wounds and they have been healing. Pt has been moved and slid around, reports it is burning and stinging. I used a wound cleanser spray and placed a dressing on the wound site. Pt was adjusted in bed and comfort was ensured.
--- NOTE | 2023-02-07 06:22 | PC.NURSE ---
Antibiotics ordered for pre-op. Per MAR, antibiotics should be administered 60 minutes prior to incision. Per Dr Putnam, there is no set time for the surgery at this time, and antibiotics can be held.
--- NOTE | 2023-02-07 06:31 | PC.NURSE ---
Addendum entered by Shauna Byrnes RN 02/07/23 06:43: Med list obtained and sent to pharmacy. Original Note: Pt is requesting to call her family to let them know she is going to surgery. I have tried calling her daughter and the phone goes directly to [facility], the mailbox is full and I cannot leave a message. I attempted to call her home phone, as she said there are people at home. The phone number did not have a mailbox set up and I was not able to leave a message. Pharmacy needs to know if pt is taking dabigatron. Pt got this filled in july with a 60-day supply, and does not have records of filling it since.
--- NOTE | 2023-02-07 07:49 | PHA.MEDREC ---
Pharmacy Consult ? Medication Reconciliation Pharmacy has completed the medication reconciliation. Spoke to Cindy at [facility] who stated patient was not on Pradaxa during her admission there, she was discharged home on 01/06. Spoke to patients PCP Kalyan who confirmed the patient is to be on pradaxa. Spoke to [facility] patients daughter who also stated patient is to be on pradaxa but patient has not received it due to changes the SNF had made.All other medications were confirmed with Frederica. Prdaxa left unconfirmed as it seems patient has not received it since last admission here at [facility] in november
--- NOTE | 2023-02-07 09:24 | PC.NURSE ---
patient sitting up in bed, family at bedside, scheduled for surgery. patient states she has 7/10 pain in her abd, reaching out to provider for prn pain medication
--- NOTE | 2023-02-07 09:42 | P.HPGS_ITS ---
History of Present Illness History of Present Illness Date of Service: 02/07/23 Chief complaint: incarcerated ventral hernia Narrative: Lizzie Lemus is a 77 year old female with a significant plethora of medical problems who now presents with periumbilical abdominal pain and nausea x1 day. Prior to this she had a bowel movement and passing flatus. Patient has a lower midline scar. Patient has history of dementia and is somewhat limited in providing any history. Workup in ER including CT scan demonstrates finding consistent with an incarcerated umbilical hernia. Chart was reviewed patient evaluated. Although documented that the patient is on Pradaxa, her extended care facility states that she has not been on this for several months time. Her last dose was 12/01/22. This information just became available recently. I was in the process of coordinating with pharmacy ob taining the antidote to Pradaxa, Praxbind. Chart was reviewed patient evaluated PMFSH Past Medical History Medical History Unstable angina URI (upper respiratory infection) Mass of right kidney NADEGE (generalized anxiety disorder) GERD (gastroesophageal reflux disease) Decompensated heart failure HTN (hypertension) Arthritis Insulin dependent type 1 diabetes mellitus Foot ulcer Fibromyalgia Coronary artery disease COPD (chronic obstructive pulmonary disease) Pacemaker Afib Family History Family History Father No problems noted. Mother No problems noted. Surgical History Surgical History History of cataract surgery History of pacemaker 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, [employer]) Alcohol intake: never Patient Tobacco Use Status: Never used Tobacco Smoked in Last 30 Days: No e-Cigarette/Vaping Use: Never Used Second Hand Smoke Exposure: No Use of substances other than those prescribed or required for medical reasons: No Advance Directives: Yes Advance Directives on File: Yes Advance Directives Date on File: 06/17/20 service: No Current occupational status: retired and disabled Cognitive needs: Yes Hearing needs: No Vision needs: Yes Meds Allergies Allergy/AdvReac Type Severity Reaction Status Date / Time dapagliflozin [From [facility]] Allergy Unknown yeast Verified 11/30/22 16:48 infection metformin Allergy Unknown Diarrhea Verified 11/30/22 16:48 amitriptyline AdvReac Intermediate Anxiety Verified 11/30/22 16:48 clindamycin AdvReac Mild Itching Verified 11/30/22 16:48 Active Medications: Current Medications Sodium Chloride (0.9 % Sodium Chloride Flush 3 Ml Syringe) 3 ml IVFLUSH [facility] Home Medications Medication Instructions Recorded Confirmed Last Taken Type blood sugar diagnostic #10 ea 03/12/20 12/01/22 11/30/22 History docusate sodium 100 mg capsule 100 mg PO DAILY 09/10/22 02/07/23 11/30/22 History insulin aspart U-100 100 unit/mL See Protocol subcut TIDAC PRN 09/10/22 02/07/23 Unknown History (3 mL) subcutaneous pen (Novolog Hyperglycemia FlexPen U-100 Insulin aspart) albuterol sulfate 90 mcg/actuation 2 puff PO Q6H PRN bronchospasm 12/01/22 02/07/23 Unknown History aerosol inhaler insulin degludec 100 unit/mL (3 50 unit subcut BID 12/01/22 02/07/23 11/30/22 History mL) subcutaneous pen (Tresiba FlexTouch U-100 insulin) pantoprazole 40 mg tablet,delayed 40 mg PO DAILY@0630 12/01/22 02/07/23 11/30/22 History release polyethylene glycol 3350 17 gram 17 g PO DAILY 12/01/22 02/07/23 11/30/22 History oral powder packet (Miralax) sennosides 8.6 mg tablet (Senna 8.6 mg PO BID 12/01/22 02/07/23 11/30/22 History Lax) latanoprost 0.005 % eye drops 1 drp ophthalmic (eye) QPM 02/07/23 02/07/23 Unknown History Physical Exam Vital Signs: Vital Signs: Last Vital Signs Temp 98.0 F 02/07/23 08:53 Pulse 80 02/07/23 08:53 Resp 16 02/07/23 08:53 BP 139/49 L 02/07/23 08:53 Pulse Ox 94 09/26/23 08:53 O2 Del Method Room Air 02/07/23 08:53 BMI result Body Mass Index 43.8 Const: Other: Somewhat confused elderly female in moderate abdominal distress secondary to her abdominal pathology. Chest: Other: Chest breath sounds bilaterally, HS 1 in 2 GI: Other: Very corpulent abdomen. Tender periumbilical irreducible ventral hernia. Results Results Labs: Short CBC 02/07/23 Range/Units 01:23 WBC 13.8 H (4.8-10.8) X10*3/uL Hgb 14.0 (12.0-16.0) g/dl Hct 42.8 (37.0-47.0) % Plt Count 244 (160-400) X10*3/uL BMP 02/07/23 01:23 Sodium 136 Potassium 4.7 D Chloride 101 Carbon Dioxide 24 BUN 11 Creatinine 0.73 Calcium 10.8 H D Liver Function 02/07/23 Range/Units 01:23 Total Bilirubin 0.7 (0.0-1.0) mg/dL Direct Bilirubin 0.3 (0.0-0.5) mg/dL AST 11 (5-31) U/L ALT 8 (0-31) U/L Alkaline Phosphatase 117 (39-117) U/L Albumin 4.0 (3.5-5.0) g/dL Assessment and Plan (1) SBO (small bowel obstruction): Status: Acute (2) Incarcerated ventral hernia: Status: Acute Plan I will attempt to obtain a consent either through the next of kin or conservatore regarding patient's need for incarcerated ventral hernia repair. Time Spent With Patient Time: Total time managing care of this patient today ____ minutes. Quality Stroke Does the patient have a stroke diagnosis?: No VTE Prior VTE?: No VTE Risk Level:: Surgical - low VTE Device Contraindication: N/A - Device Ordered VTE Drug Contraindication: N/A - Med Ordered Procedures Date of Service Date of Service: 02/07/23
--- NOTE | 2023-02-07 10:12 | MHC.CM.PN ---
CM MET WITH PTS DAUGHTER/HCP, FE, AT BEDSIDE FE CONFIRMS HER BROTHER LIVES IN THE PTS HOME JUANCHO DAUGHTER IS PTS PHOTOENGRAVING PROOFER AND FE CHECKS IN DAILY SHE SAYS THE PT HAS A WALKER AND WHEEL CHAIR FOR DME SHE IS ALSO ACTIVE WITH A VNA, FE THINKS IT IS [facility] FE REPORTS THEY HAVE BEEN WAITING FOR A MONTH FOR A HOSPITAL BED CM WILL CALL [facility] TO CONFIRM VNA AND ASK ABOUT BED STATUS FE REPORTS SHE AND HER DAUGHTER TYPICALLY BRING PT TO APPTS HCP IS ON FILE AND PCP IS DONATO LITTLE IMM DELIVERED DCP: HOME RESUME PHOTOENGRAVING PROOFER AND VNA (?[facility]) FAMILY TO TRANSPORT
[2023-02-07] MEDS: 0.9 % Sodium Chloride Flush 3 ML SYRINGE IVFLUSH ×2 (10:21→17:12)
[2023-02-07] MEDS: Lactated Ringers 1,000 ML 100 ML IVCONT ×2 (11:50→17:12)
[2023-02-07 12:03] LABS: Glucose, Whole Blood 230 mg/dL (60-115)
--- NOTE | 2023-02-07 12:43 | P.CONAN_ITS ---
HPI - Anesthesia Eval Consult details Narrative: 77 yo F admitted with incarcerated umbilical hernia. Has a dual-chamber PM for AV block, last device check 07/2022. [facility] Active Problems Active Problems: All Active Problems (Updated 02/07/23 @ 09:47 by Fernando Putnam MD) Incarcerated ventral hernia (Acute) SBO (small bowel obstruction) (Acute) Hypomagnesemia (Acute) Left leg pain (Acute) Rib pain on left side (Acute) Allergic conjunctivitis and rhinitis (Acute) Vaginitis (Acute) Dysphagia (Acute) Hypomagnesemia (Acute) Rash (Acute) Abdominal hernia (Acute) Insomnia (Acute) Wound, open, leg (Acute) Edema of both feet (Acute) Constipation (Acute) Lower extremity edema (Acute) Obese (Acute) Cherry onychomycosis (Acute) Dysuria (Acute) H/O sepsis (Acute) Balance disorder (Acute) Physical deconditioning (Acute) Sepsis (Acute) Perirectal skin irritation (Acute) Neuropathy (Acute) Urinary frequency (Acute) Recurrent UTI (Acute) Frequent falls (Acute) Medicare annual wellness visit, initial (Acute) Neuropathy (Acute) Osteoarthritis of knees, bilateral (Acute) Pre-op evaluation (Acute) Balance problem (Acute) Plantar fasciitis of right foot (Acute) Shoulder pain (Acute) Eye discomfort (Acute) Cellulitis (Acute) History of cholecystectomy (Acute) H/O tubal ligation (Acute) Gout (Acute) GERD (gastroesophageal reflux disease) (Acute) Right hip pain (Acute) Dermatitis (Acute) Lumbar pain (Acute) Left hand pain (Acute) UTI (urinary tract infection) (Acute) Grief reaction (Acute) Lower leg edema (Acute) Otitis externa (Acute) Nocturnal hypoxemia (Acute) Lumbar spine pain (Acute) HLD (hyperlipidemia) (Acute) HTN (hypertension) (Acute) Grief (Acute) Type 2 diabetes mellitus (Acute) Tinea (Acute) COPD (chronic obstructive pulmonary disease) (Acute) Fibromyalgia (Acute) Decompensated heart failure (Acute) GERD (gastroesophageal reflux disease) (Acute) NADEGE (generalized anxiety disorder) (Acute) Mass of right kidney (Acute) Insulin dependent type 1 diabetes mellitus (Acute) History of cataract surgery (Acute) Pacemaker (Acute) Past Medical History Medical History Unstable angina URI (upper respiratory infection) Mass of right kidney NADEGE (generalized anxiety disorder) GERD (gastroesophageal reflux disease) Decompensated heart failure HTN (hypertension) Arthritis Insulin dependent type 1 diabetes mellitus Foot ulcer Fibromyalgia Coronary artery disease COPD (chronic obstructive pulmonary disease) Pacemaker Afib Family History Family History Father No problems noted. Mother No problems noted. 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) Alcohol intake: never Patient Tobacco Use Status: Never used Tobacco Smoked in Last 30 Days: No e-Cigarette/Vaping Use: Never Used Second Hand Smoke Exposure: No Use of substances other than those prescribed or required for medical reasons: No Advance Directives: Yes Advance Directives on File: Yes Advance Directives Date on File: 06/17/20 service: No Current occupational status: retired and disabled Cognitive needs: Yes Hearing needs: No Vision needs: Yes Meds Allergies Allergy/AdvReac Type Severity Reaction Status Date / Time dapagliflozin [From [facility]] Allergy Unknown yeast Verified 02/07/23 12:38 infection metformin Allergy Unknown Diarrhea Verified 02/07/23 12:38 amitriptyline AdvReac Intermediate Anxiety Verified 02/07/23 12:38 clindamycin AdvReac Mild Itching Verified 02/07/23 12:38 Active Medications: Current Medications Albuterol Sulfate (Albuterol Sulfate 90 Mcg 8 Gm Inhaler) 2 puff INHALE Q6H PRN PRN Reason: bronchospasm Amitriptyline HCl (Amitriptyline Hcl 25 Mg Tablet) 25 mg PO BEDTIME [facility] Atenolol (Atenolol 50 Mg Tablet) 50 mg PO DAILY [facility]; Protocol Dextrose (Dextrose 50 % 25 Gm/50 Ml Syringe) 25 gm IVPUSH Q15M PRN; Protocol PRN Reason: per Hypoglycemia Standing Ord. Flecainide Acetate (Flecainide Acetate 50 Mg Tablet) 100 mg PO BID [facility] Gabapentin (Gabapentin 300 Mg Capsule) 300 mg PO BID [facility] Glucose (Glucose Gel 15 Gm Gel..Gram.) 15 gm PO Q15M PRN; Protocol PRN Reason: per Hypoglycemia Standing Ord. Lactated Ringer's (Lr) 1,000 mls @ 100 mls/hr IVCONT .Q10H [facility] Last Admin: 02/07/23 11:50 Dose: 100 mls/hr Insulin Human Lispro (Insulin Lispro 100 Unit/Ml 3 Ml Vial) 0 unit SUBCUT QIDACHS [facility]; Protocol Last Admin: 02/07/23 12:04 Dose: Not Given Isosorbide Mononitrate (Isosorbide Mononitrate 30 Mg Tab.Er.24h) 30 mg PO DAILY [facility]; Protocol Latanoprost (Latanoprost 0.005 % Ophth Cristina 2.5 Ml Drops) 1 drop EYE-BOTH BEDTIME [facility] Lidocaine (Lidocaine 4 % Patch Adh..Patch) 1 patch TRANSDERMA DAILY PRN PRN Reason: pain Losartan Potassium (Losartan Potassium 50 Mg Tablet) 100 mg PO DAILY [facility]; Protocol Morphine Sulfate (Morphine Sulfate 4 Mg/Ml Cartridge) 4 mg IVPUSH Q4H PRN; Protocol PRN Reason: Pain, Severe (Pain Scale 7-10) Last Admin: 02/07/23 11:50 Dose: 4 mg Omeprazole (Omeprazole 20 Mg Capsule.Dr) 20 mg PO DAILY@0630 [facility] Sodium Chloride (0.9 % Sodium Chloride Flush 3 Ml Syringe) 3 ml IVFLUSH QSHIFT [facility] Last Admin: 02/07/23 10:21 Dose: 3 ml Home Medications Medication Instructions Recorded Confirmed Last Taken Type blood sugar diagnostic #10 ea 03/12/20 12/01/22 11/30/22 History docusate sodium 100 mg capsule 100 mg PO DAILY 09/10/22 02/07/23 11/30/22 History insulin aspart U-100 100 unit/mL See Protocol subcut TIDAC PRN 09/10/22 02/07/23 Unknown History (3 mL) subcutaneous pen (Novolog Hyperglycemia FlexPen U-100 Insulin aspart) albuterol sulfate 90 mcg/actuation 2 puff PO Q6H PRN bronchospasm 12/01/22 02/07/23 Unknown History aerosol inhaler insulin degludec 100 unit/mL (3 50 unit subcut BID 12/01/22 02/07/23 11/30/22 History mL) subcutaneous pen (Tresiba FlexTouch U-100 insulin) pantoprazole 40 mg tablet,delayed 40 mg PO DAILY@0630 12/01/22 02/07/23 11/30/22 History release polyethylene glycol 3350 17 gram 17 g PO DAILY 12/01/22 02/07/23 11/30/22 History oral powder packet (Miralax) sennosides 8.6 mg tablet (Senna 8.6 mg PO BID 12/01/22 02/07/23 11/30/22 History Lax) latanoprost 0.005 % eye drops 1 drp ophthalmic (eye) QPM 02/07/23 02/07/23 Unknown History Exam Exam Date and Time: February 07, 2023 1240 Height,Weight and Vital Signs: Height 5 ft 6 in Weight 123 kg Last Vital Signs Temp 98.0 F 02/07/23 08:53 Pulse 80 02/07/23 08:53 Resp 16 02/07/23 08:53 BP 139/49 L 02/07/23 08:53 Pulse Ox 94 02/07/23 08:53 O2 Del Method Room Air 02/07/23 08:53 Pertinent Lab Results Pertinent Lab Results: Laboratory Tests 02/07/23 02/07/23 02/07/23 00:57 01:23 11:59 WBC 13.8 H RBC 5.04 Hgb 14.0 Hct 42.8 MCV 84.9 MCH 27.8 MCHC 32.7 RDW 15.9 Plt Count 244 MPV 10.1 Immature Gran % (Auto) 0.8 H Neut % (Auto) 91.7 H Lymph % (Auto) 5.2 L [place] % (Auto) 2.2 Eos % (Auto) 0.0 Baso % (Auto) 0.1 Lymph # (Auto) 0.7 L [place] # (Auto) 0.3 Eos # (Auto) 0.0 Baso # (Auto) 0.0 Abs Immat Gran (auto) 0.11 H Absolute Neuts (auto) 12.6 H Absolute Nucleated RBC 0.000 Nucleated RBC % (auto) 0.0 Smear Tech's Comments VERIFIED Sodium 136 Potassium 4.7 D Chloride 101 Carbon Dioxide 24 Anion Gap 16 BUN 11 Creatinine 0.73 Estim Creat Clear Calc 86.4 Estimated GFR > 60 POC Glucose 269 H 230 H Random Glucose 303 H Calcium 10.8 H D Magnesium 1.5 L Total Bilirubin 0.7 Direct Bilirubin 0.3 AST 11 ALT 8 Alkaline Phosphatase 117 Troponin I High Sens < 2.7 D Total Protein 7.2 Albumin 4.0 Lipase 7 L COVID-19 (AYANNA) Negative COVID-19 Clin Com See Note Airway Mallampati Class: III Neck ROM: Limited Loose/Missing/Broken Teeth: Yes (Edentulous) Heart: S1S2 Lungs: CTAB Assessment and Plan Assessment Anesthesia Assessment: Anesthesia Plan Discussed and Chart Reviewed Final Anesthetic Review Family History of Problems with Anesthesia: No History of Problems with Anesthesia: No NPO: Yes ASA Class: III and Emergency Final Preanesthetic Review: No Changes in Pt Med Stat, Meds/Allgs Chart Reviewed, Consent Obtained/Reviewed (phone consent obtained from daughter, Bell Villegas (HCP)) and Anes Risks/Benef Reviewed Patient Risk: Intermediate Procedure Risk: Low Anesthetic Plan Anesthetic Plan: GA and Agree w/ Assess. and Plan Disposition: Standard PACU
--- NOTE | 2023-02-07 13:04 | PC.NURSE ---
Patient arrived to preop, #20 PRN angio in left forearm. Asymptomatic, flushed with no issues.
--- NOTE | 2023-02-07 13:55 | W.PM.OPN ---
Operative Note Operative Note Date of Service: 02/07/23 Narrative: Preoperative diagnosis: [] Incarcerated large umbilical hernia Postop diagnosis: [] Same Procedure [] umbilical herniorrhaphy open technique with Bard mesh. Partial omentectomy Surgeon: [] [employer] Circulation Assistant: [] Ming Type of Anesthesia: [] General Indication for surgery: [] Massively corpulent abdomen. Large ,approximately 5 cm incarcerated umbilical hernia with omental contents. Local small-bowel in the region of the hernia was evaluated and was within normal limits. Findings: [] Patient brought to the operating room, placed on OR table in the supine position, and after adequate level of general anesthesia was induced, the very corpulent abdomen was prepped and draped in usual sterile fashion. Using a large curvilinear supraumbilical incision, this carried down through skin, subcutaneous tissue, where large hernia sac was identified and circumferentially dissected away from the posterior aspect of the umbilicus and surrounding soft tissues down to the fascia. Sac was quite large and extended into the supraumbilical subcutaneous tissue. Sac was opened where incarcerated omental contents were partially amputated and partially reduced using clamp, ties of 2-0 Vicryl. Fascia margins were circumferentially cleared of adhesions and a large Bard mesh was placed in this defect, and the superficial layer of the mesh was circumferentially sutured to the surrounding fascia using interrupted 0 Ethibond sutures. A completion the procedure, mesh was in good position with no tension and no gaps. Wound was irrigated, secured hemostasis, and closed in the following manner; posterior aspect of the umbilicus was tacked to the wound floor using interrupted 3-0 Vicryl sutures. Subcutaneous tissue was reapproximated using up to 3-0 Vicryl sutures. Skin was closed using interrupted inverted dermal 3-0 Vicryl sutures followed by Steri-Strips and sterile dressings. Wound was infiltrated 0.5% Marcaine at completion. Sponge, needle, instrument counts reported correct. Patient tolerated the procedure well and emerged anesthesia stable condition. EBL minimal
[2023-02-07 17:26] LABS: Glucose, Whole Blood 170 mg/dL (60-115)
[2023-02-07] MEDS: Insulin Lispro 100 UNIT/ML 3 ML VIAL SUBCUT (17:34)
--- NOTE | 2023-02-07 18:16 | HO.SKINPHOTO ---
Location: coccyx, left buttock Category: pressure Stage: II Length: Width: Depth: cm Location: Category: Stage: Length: Width: Depth: cm Location: Category: Stage: Length: Width: Depth: cm Location: Category: Stage: Length: Width: Depth: cm Location: Category: Stage: Length: Width: Depth: cm Location: Category: Stage: Length: Width: Depth: cm
[2023-02-07] MEDS: Acetaminophen 1,000 MG/100 ML PIGGYBACK 400 MG IV (18:27)
[2023-02-07] MEDS: Gabapentin 300 MG CAPSULE PO (22:03)
[2023-02-07] MEDS: Flecainide Acetate 50 MG TABLET 100 MG PO (22:03)
[2023-02-07] MEDS: Amitriptyline HCl 25 MG TABLET PO (22:03)
[2023-02-07] MEDS: oxyCODONE HCl Immed Release 5 MG TABLET 10 MG PO (22:04)
[2023-02-07 22:24] LABS: Glucose, Whole Blood 119 mg/dL (60-115)
[2023-02-07] MEDS: Latanoprost 0.005 % Ophth Sol 2.5 ML DROPS 1 DROP EYE-BOTH (23:24)
[2023-02-08] MEDS: Acetaminophen 1,000 MG/100 ML PIGGYBACK 400 MG IV ×4 (00:43→18:21)
[2023-02-08 03:03] VITALS: BP 121/58; PULSE 81; RESP 14; TEMP 35.8; O2SAT 93
[2023-02-08] MEDS: Lactated Ringers 1,000 ML 100 ML IVCONT ×2 (04:05→14:13)
[2023-02-08 07:02] VITALS: BP 117/56; PULSE 80; RESP 18; TEMP 36; O2SAT 90
[2023-02-08 07:13] LABS: Glucose, Whole Blood 151 mg/dL (60-115)
[2023-02-08] MEDS: Insulin Lispro 100 UNIT/ML 3 ML VIAL SUBCUT ×2 (08:33→11:09)
[2023-02-08] MEDS: Losartan Potassium 50 MG TABLET 100 MG PO (08:34)
[2023-02-08] MEDS: atenoloL 50 MG TABLET PO (08:34)
[2023-02-08] MEDS: Flecainide Acetate 50 MG TABLET 100 MG PO ×2 (08:34→20:25)
[2023-02-08] MEDS: Isosorbide Mononitrate 30 MG TAB.ER.24H PO (08:35)
[2023-02-08] MEDS: Gabapentin 300 MG CAPSULE PO ×2 (08:35→20:25)
--- NOTE | 2023-02-08 08:53 | P.PNGS_ITS ---
Subjective Subjective Date of Service: 02/08/23 Interval history: Uneventful evening. Patient is Very sleepy this morning Physical Exam 2 Vital Signs: Vital Signs: Last Vital Signs Temp 96.8 F 02/08/23 07:02 Pulse 80 02/08/23 07:02 Resp 18 02/08/23 07:02 BP 117/56 L 02/08/23 07:02 Pulse Ox 90 L 02/08/23 07:02 O2 Del Method Room Air 02/08/23 07:02 O2 Flow Rate 2 02/07/23 16:29 BMI result Body Mass Index 44.9 GI: Other: Abdomen very corpulent. Dressing clean dry and intact. Soft. Incisional tenderness. Objective Data Active Medications Albuterol Sulfate (Albuterol Sulfate 90 Mcg 8 Gm Inhaler) 2 puff INHALE Q6H PRN PRN Reason: bronchospasm Amitriptyline HCl (Amitriptyline Hcl 25 Mg Tablet) 25 mg PO BEDTIME [facility] Last Admin: 02/07/23 22:03 Dose: 25 mg Documented By: BREEZY Atenolol (Atenolol 50 Mg Tablet) 50 mg PO DAILY [facility]; Protocol Last Admin: 02/08/23 08:34 Dose: 50 mg Documented By: NELLY Dextrose (Dextrose 50 % 25 Gm/50 Ml Syringe) 25 gm IVPUSH Q15M PRN; Protocol PRN Reason: per Hypoglycemia Standing Ord. Flecainide Acetate (Flecainide Acetate 50 Mg Tablet) 100 mg PO BID [facility] Last Admin: 02/08/23 08:34 Dose: 100 mg Documented By: NELLY Gabapentin (Gabapentin 300 Mg Capsule) 300 mg PO BID [facility] Last Admin: 02/08/23 08:35 Dose: 300 mg Documented By: NELLY Glucose (Glucose Gel 15 Gm Gel..Gram.) 15 gm PO Q15M PRN; Protocol PRN Reason: per Hypoglycemia Standing Ord. Lactated Ringer's (Lr) 1,000 mls @ 100 mls/hr IVCONT .Q10H [facility] Last Admin: 02/08/23 04:05 Dose: 100 mls/hr Documented By: BREEZY Acetaminophen (Ofirmev) 1,000 mg in 100 mls @ 400 mls/hr IV Q6H [facility] Last Infusion: 02/08/23 06:30 Dose: Infused Documented By: BREEZY Insulin Human Lispro (Insulin Lispro 100 Unit/Ml 3 Ml Vial) 0 unit SUBCUT QIDACHS [facility]; Protocol Last Admin: 02/08/23 08:33 Dose: 2 unit Documented By: NELLY Isosorbide Mononitrate (Isosorbide Mononitrate 30 Mg Tab.Er.24h) 30 mg PO DAILY [facility]; Protocol Last Admin: 02/08/23 08:35 Dose: 30 mg Documented By: NELLY Latanoprost (Latanoprost 0.005 % Ophth Cristina 2.5 Ml Drops) 1 drop EYE-BOTH BEDTIME [facility] Last Admin: 02/07/23 23:24 Dose: 1 drop Documented By: BREEZY Lidocaine (Lidocaine 4 % Patch Adh..Patch) 1 patch TRANSDERMA DAILY PRN PRN Reason: pain Losartan Potassium (Losartan Potassium 50 Mg Tablet) 100 mg PO DAILY [facility]; Protocol Last Admin: 02/08/23 08:34 Dose: 100 mg Documented By: NELLY Morphine Sulfate (Morphine Sulfate 4 Mg/Ml Cartridge) 4 mg IVPUSH Q4H PRN; Protocol PRN Reason: Pain, Severe (Pain Scale 7-10) Last Admin: 02/07/23 11:50 Dose: 4 mg Documented By: MARGARET Omeprazole (Omeprazole 20 Mg Capsule.Dr) 20 mg PO DAILY@0630 [facility] Last Admin: 02/08/23 05:19 Dose: Not Given Documented By: BREEZY Non-Admin Reason: unable to crush Oxycodone HCl (Oxycodone Hcl Immed Release 5 Mg Tablet) 5 mg PO Q4H PRN PRN Reason: Pain, Moderate(Pain Scale 4-6) Oxycodone HCl (Oxycodone Hcl Immed Release 5 Mg Tablet) 10 mg PO Q4H PRN PRN Reason: Pain, Severe (Pain Scale 7-10) Last Admin: 02/07/23 22:04 Dose: 10 mg Documented By: BREEZY Sodium Chloride (0.9 % Sodium Chloride Flush 3 Ml Syringe) 3 ml IVFLUSH QSHIFT [facility] Last Admin: 02/08/23 08:24 Dose: Not Given Documented By: NELLY Non-Admin Reason: IV Running Labs 02/07/23 01:23 02/07/23 01:23 Labs: Laboratory Results - last 24 hr 02/07/23 02/07/23 02/07/23 11:59 17:21 22:19 POC Glucose 230 H 170 H 119 H 02/08/23 07:10 POC Glucose 151 H Procedures Date of Service Date of Service: 02/08/23 Progress Note: A&P Assessment and plan (1) Incarcerated ventral hernia: Status: Acute Plan Encourage incentive spirometry, out of bed, p.o. liquids. Spoke with patient's daughter last evening and she would prefer to have patient to return home with her when patient is ready as opposed to ECF placement Time Spent With Patient Time: Total time managing care of this patient today ____ minutes. Quality Stroke Does the patient have a stroke diagnosis?: No VTE Prior VTE?: No VTE Risk Level:: Surgical - low VTE Device Contraindication: N/A - Device Ordered VTE Drug Contraindication: N/A - Med Ordered
[2023-02-08 11:03] LABS: Glucose, Whole Blood 152 mg/dL (60-115)
[2023-02-08] MEDS: oxyCODONE HCl Immed Release 5 MG TABLET 10 MG PO ×2 (11:09→17:54)
--- NOTE | 2023-02-08 11:11 | P.CONHOSP_ITS ---
History of Present Illness Data of Consult Service Date: 02/08/23 Primary Care Provider: Micheal Biggs PA-C HPI Reason for consult: Medical management Patient is a Burkinan-speaking 76-year-old female with a PMH significant for COPD, renal mass, insulin-dependent type 2 diabetes with neuropathy, CHF unspecified EF, paroxysmal AFib on flecainide no longer anticoagulated with Pradaxa, AV block with dual chamber pacemaker, HTN, HLD, GERD, CAD, fibromyalgia, bipolar disorder, and balance disorder ambulating with walker at baseline who presented to the emergency room for evaluation of nausea and burning epigastric pain with dysuria. Patient was admitted under General surgery for large 5 cm incarcerated umbilical hernia, or patient underwent hernia repair with mesh. POD1. Pt complains of moderate central abdominal pain at incision sites, and also complains of sacral pain. Patient states she has a sore on her backside that her daughter takes care of. Patient otherwise has no acute medical complaints. No chest pain/pressure, palpitations. Denies shortness of breath. No fever, chills, nausea, vomiting. Review of Systems 2 Review of Systems: Central abdominal pain at incision sites Sacral pain No fever, chills, nausea, vomiting No chest pain/pressure, palpitations Denies shortness of breath PMFSH Medical History Unstable angina URI (upper respiratory infection) Mass of right kidney NADEGE (generalized anxiety disorder) GERD (gastroesophageal reflux disease) Decompensated heart failure HTN (hypertension) Arthritis Insulin dependent type 1 diabetes mellitus Foot ulcer Fibromyalgia Coronary artery disease COPD (chronic obstructive pulmonary disease) Pacemaker Afib Family History Father No problems noted. Mother No problems noted. Surgical History Hx laparoscopic cholecystectomy H/O vein stripping Tubal ligation status History of cataract surgery History of pacemaker Social History Household Members: Family Household Members Other:: son stays with her, family nearby Housing: House Do you presently have visiting nurse or other home services: Yes Alcohol intake: never Patient Tobacco Use Status: Never used Tobacco e-Cigarette/Vaping Use: Never Used Second Hand Smoke Exposure: No Advance Directives Date on File: 06/17/20 service: No Current occupational status: retired and disabled Cognitive needs: Yes Hearing needs: No Vision needs: Yes Meds Allergies Allergy/AdvReac Type Severity Reaction Status Date / Time dapagliflozin [From [facility]] Allergy Unknown yeast Verified 02/07/23 12:38 infection metformin Allergy Unknown Diarrhea Verified 02/07/23 12:38 amitriptyline AdvReac Intermediate Anxiety Verified 02/07/23 12:38 clindamycin AdvReac Mild Itching Verified 02/07/23 12:38 Active Medications: Current Medications Albuterol Sulfate (Albuterol Sulfate 90 Mcg 8 Gm Inhaler) 2 puff INHALE Q6H PRN PRN Reason: bronchospasm Amitriptyline HCl (Amitriptyline Hcl 25 Mg Tablet) 25 mg PO BEDTIME [facility] Last Admin: 02/07/23 22:03 Dose: 25 mg Atenolol (Atenolol 50 Mg Tablet) 50 mg PO DAILY [facility]; Protocol Last Admin: 02/08/23 08:34 Dose: 50 mg Dextrose (Dextrose 50 % 25 Gm/50 Ml Syringe) 25 gm IVPUSH Q15M PRN; Protocol PRN Reason: per Hypoglycemia Standing Ord. Flecainide Acetate (Flecainide Acetate 50 Mg Tablet) 100 mg PO BID [facility] Last Admin: 02/08/23 08:34 Dose: 100 mg Gabapentin (Gabapentin 300 Mg Capsule) 300 mg PO BID [facility] Last Admin: 02/08/23 08:35 Dose: 300 mg Glucose (Glucose Gel 15 Gm Gel..Gram.) 15 gm PO Q15M PRN; Protocol PRN Reason: per Hypoglycemia Standing Ord. Lactated Ringer's (Lr) 1,000 mls @ 100 mls/hr IVCONT .Q10H [facility] Last Admin: 02/08/23 04:05 Dose: 100 mls/hr Acetaminophen (Ofirmev) 1,000 mg in 100 mls @ 400 mls/hr IV Q6H [facility] Last Infusion: 02/08/23 06:30 Dose: Infused Insulin Human Lispro (Insulin Lispro 100 Unit/Ml 3 Ml Vial) 0 unit SUBCUT QIDACHS [facility]; Protocol Last Admin: 02/08/23 11:09 Dose: 2 unit Isosorbide Mononitrate (Isosorbide Mononitrate 30 Mg Tab.Er.24h) 30 mg PO DAILY [facility]; Protocol Last Admin: 02/08/23 08:35 Dose: 30 mg Latanoprost (Latanoprost 0.005 % Ophth Cristina 2.5 Ml Drops) 1 drop EYE-BOTH BEDTIME [facility] Last Admin: 02/07/23 23:24 Dose: 1 drop Lidocaine (Lidocaine 4 % Patch Adh..Patch) 1 patch TRANSDERMA DAILY PRN PRN Reason: pain Losartan Potassium (Losartan Potassium 50 Mg Tablet) 100 mg PO DAILY [facility]; Protocol Last Admin: 02/08/23 08:34 Dose: 100 mg Morphine Sulfate (Morphine Sulfate 4 Mg/Ml Cartridge) 4 mg IVPUSH Q4H PRN; Protocol PRN Reason: Pain, Severe (Pain Scale 7-10) Last Admin: 02/07/23 11:50 Dose: 4 mg Omeprazole (Omeprazole 20 Mg Capsule.Dr) 20 mg PO DAILY@0630 [facility] Last Admin: 02/08/23 05:19 Dose: Not Given Oxycodone HCl (Oxycodone Hcl Immed Release 5 Mg Tablet) 5 mg PO Q4H PRN PRN Reason: Pain, Moderate(Pain Scale 4-6) Oxycodone HCl (Oxycodone Hcl Immed Release 5 Mg Tablet) 10 mg PO Q4H PRN PRN Reason: Pain, Severe (Pain Scale 7-10) Last Admin: 02/08/23 11:09 Dose: 10 mg Sodium Chloride (0.9 % Sodium Chloride Flush 3 Ml Syringe) 3 ml IVFLUSH QSHIFT [facility] Last Admin: 02/08/23 08:24 Dose: Not Given Home Medications Medication Instructions Recorded Confirmed Last Taken Type blood sugar diagnostic #10 ea 03/12/20 12/01/22 11/30/22 History docusate sodium 100 mg capsule 100 mg PO DAILY 09/10/22 02/07/23 11/30/22 History insulin aspart U-100 100 unit/mL See Protocol subcut TIDAC PRN 09/10/22 02/07/23 Unknown History (3 mL) subcutaneous pen (Novolog Hyperglycemia FlexPen U-100 Insulin aspart) albuterol sulfate 90 mcg/actuation 2 puff PO Q6H PRN bronchospasm 12/01/22 02/07/23 Unknown History aerosol inhaler insulin degludec 100 unit/mL (3 50 unit subcut BID 12/01/22 02/07/23 11/30/22 History mL) subcutaneous pen (Tresiba FlexTouch U-100 insulin) pantoprazole 40 mg tablet,delayed 40 mg PO DAILY@0630 12/01/22 02/07/23 11/30/22 History release polyethylene glycol 3350 17 gram 17 g PO DAILY 12/01/22 02/07/23 11/30/22 History oral powder packet (Miralax) sennosides 8.6 mg tablet (Senna 8.6 mg PO BID 12/01/22 02/07/23 11/30/22 History Lax) latanoprost 0.005 % eye drops 1 drp ophthalmic (eye) QPM 02/07/23 02/07/23 Unknown History Physical Exam 2 Vital Signs and Narrative: Vital Signs: Last Vital Signs Temp 96.8 F 02/08/23 07:02 Pulse 80 02/08/23 07:02 Resp 18 02/08/23 07:02 BP 117/56 L 02/08/23 07:02 Pulse Ox 90 L 02/08/23 07:02 O2 Del Method Room Air 02/08/23 07:02 O2 Flow Rate 2 02/07/23 16:29 BMI result Body Mass Index 44.9 General: AOx3, no acute distress Resp: CTA bilaterally CVS: S1, S2, RRR GI: +BS, Central abdomen tenderness, obese, no distension Skin: Stage 2 decubitus ulcer, see picture below Neuro: Cranial nerves II-XII grossly intact bilaterally. Motor grossly intact bilaterally Extremities: No edema Psych: Appropriate affect Results Labs 02/07/23 01:23 02/07/23 01:23 Labs: Laboratory Results - last 24 hr 02/07/23 02/07/23 02/07/23 11:59 17:21 22:19 POC Glucose 230 H 170 H 119 H 02/08/23 02/08/23 07:10 11:00 POC Glucose 151 H 152 H Assessment and Plan (1) Incarcerated ventral hernia: Status: Acute (2) Hypomagnesemia: Status: Acute Plan Patient is a Burkinan-speaking 76-year-old female with a PMH significant for COPD, renal mass, insulin-dependent type 2 diabetes with neuropathy, CHF unspecified EF, paroxysmal AFib on flecainide no longer anticoagulated with Pradaxa, AV block with dual chamber pacemaker, HTN, HLD, GERD, CAD, fibromyalgia, bipolar disorder, and balance disorder ambulating with walker at baseline who presented to the emergency room for evaluation of nausea and burning epigastric pain with dysuria. Patient was admitted under General surgery for large 5 cm incarcerated umbilical hernia, or patient underwent hernia repair with mesh. Umbilical hernia repair Plan as per General surgery Hypomagnesemia, resolved Mag 1.5 at time of presentation to the ED Pt given 2g mag IV in the ED, now 1.9 Stage II decubitus ulcer Wound nurse consult Patient positioning q2hr Insulin-dependent type 2 diabetes Will hold home meds Place patient on sliding scale insulin Will start patient on 20 units of Lantus today and give another 20 units tomorrow Patient currently on clears, will resume normal bid dosing of Lantus once patient advances to normal diebetic diet HTN Continue home meds Paroxysmal atrial fibrillation Pacemaker in place Continue flecainide, atenolol CHF, unspecified ejection fraction Not in acute exacerbation Continue p.o. diuretics COPD Not in acute exacerbation Continue home inhalers CAD/HLD Continue statin, isosorbide, beta-tara Diabetic polyneuropathy Continue gabapentin Thank you for allowing us to participate in the care of this patient. Will continue following along with you. Please let us know if there are any acute complaints or questions. Time Spent With Patient Time: Total time managing care of this patient today ____ minutes.
[2023-02-08 11:14] VITALS: BMI 44.9
--- NOTE | 2023-02-08 11:23 | MHC.CLN ---
NUTRITION CONSULT FOR PRESSURE INJURIES. CLEAR LIQUID DIET S/P SURGERY. INCREASED PROTEIN NEEDS DUE TO IMPAIRED SKIN INTEGRITY. STAGE II PRESSURE INJURY TO LEFT BUTTOCK AND COCCYX. FOLLOW FOR DIET ADVANCEMENT AND SKIN INTEGRITY. ADDING GELATEIN BID (320 KCALS, 40 G PROTEIN). SEE CLINICAL NUTRITION ASSESSMENT 02/08/23.
[2023-02-08] MEDS: Insulin Glargine,Hum.rec.anlog 100 UNIT/ML 10 ML VIAL 20 UNIT SUBCUT (11:52)
--- NOTE | 2023-02-08 12:43 | HO.POSTANES ---
Post Anesthesia Evaluation Post Anesthesia Evaluation Date of Service: 02/08/23 Vital Signs: Vital Signs Temp Pulse Resp BP Pulse Ox O2 Del Method 02/08/23 07:02 96.8 F 80 18 117/56 L 90 L Room Air 02/08/23 03:03 96.4 F L 81 14 121/58 L 93 Room Air Anesthesia: General Mental Status: Awake Pain Control: Satisfactory Nausea/Vomiting: None Hydration: Adequate Anesthesia-Related Issues: No Anes. Related Issues
[2023-02-08 13:51] LABS: Magnesium 1.9 mg/dL (1.6-2.6)
--- NOTE | 2023-02-08 13:52 | P.CDIM_ITS ---
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 Please review below and update the documentation accordingly. Clinical Indicators: Height: ( ) 5'6 Weight: ( ) 126.1 kg BMI: ( ) 44.9 Other Clinical Notes Supporting Significance of the BMI: Per Clinical Nutrition Assessment 02/08/23: Extreme Obesity, class 3 If possible, please provide an associated diagnosis related to the abnormal BMI, such as: Overweight Obesity Due to excess calories Obesity Drug induced Obesity Due to other cause Specify the other cause Severe or Morbid Obesity With alveolar hypoventilation Severe or Morbid Obesity Without alveolar hypoventilation BMI is not significant Other (explain)Clinically unable to determine (explain)Thank you, Elizabeth Palacios RN Use of terms such as suspected, likely, concern for, or probable (associated with a specific diagnosi s that is being evaluated, monitored, or treated as if it exists) are acceptable and can be coded in the inpatient se tting, when documented at the time of discharge. Please use your independent medical judgment in providing your response. THIS QUERY IS PART OF THE PERMANENT MEDICAL RECORD
--- NOTE | 2023-02-08 14:39 | MHC.CM.PN ---
Addendum entered by Dottie Arreguin 02/08/23 14:41: POD 1 s/p hernia repair. Clear liquid diet ordered. Original Note: No discharge today. 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 CM will follow.
[2023-02-08 15:33] VITALS: BP 208/98; PULSE 111; RESP 18; TEMP 36.2; O2SAT 95
[2023-02-08 16:45] LABS: Glucose, Whole Blood 109 mg/dL (60-115)
[2023-02-08 19:10] LABS: Appearance Urine Clear; Color Urine Dark Yellow; Glucose Urine UA Negative (Negative); Leukocyte Esterase Urine Trace (Negative); Nitrite Urine Negative (Negative); Specific Gravity - Urine 1.025 (1.005-1.025); UMIC TRIGGER UACC YES; Urine Blood Negative (Negative); Urine Ketones Negative (Negative); Urine Protein 30 (1+) mg/dL (Neg-Trace)
[2023-02-08 19:15] LABS: Bacteria Urine None Seen (None Seen); Hyaline Casts Urine 0-2 /LPF (0-2); RBC Urine 0-2 /HPF (0-2); Squamous Epithelial Cell Urine 0-2 /HPF (0-2); UACC Culture Trigger YES
[2023-02-08] MEDS: Latanoprost 0.005 % Ophth Sol 2.5 ML DROPS 1 DROP EYE-BOTH (20:25)
[2023-02-08] MEDS: Nystatin Powder 15 GM BOTTLE 1 APPL TOPICAL (20:25)
[2023-02-08] MEDS: 0.9 % Sodium Chloride Flush 3 ML SYRINGE IVFLUSH (20:25)
[2023-02-08] MEDS: Amitriptyline HCl 25 MG TABLET PO (20:25)
[2023-02-08 21:08] LABS: Glucose, Whole Blood 96 mg/dL (60-115)
[2023-02-08] MEDS: Morphine Sulfate 4 MG/ML CARTRIDGE IVPUSH (21:08)
[2023-02-09] MEDS: Acetaminophen 1,000 MG/100 ML PIGGYBACK 400 MG IV ×2 (00:59→06:32)
[2023-02-09] MEDS: Lactated Ringers 1,000 ML 100 ML IVCONT ×2 (01:00→15:27)
[2023-02-09 03:22] VITALS: BP 136/63; PULSE 80; RESP 18; TEMP 35.9; O2SAT 100
[2023-02-09] MEDS: Albuterol/Iprat 2.5/0.5MG 3 ML AMPUL.NEB INHALE (04:04)
[2023-02-09 04:05] VITALS: PULSE 80; RESP 20; O2SAT 100
[2023-02-09] MEDS: Morphine Sulfate 4 MG/ML CARTRIDGE IVPUSH ×2 (05:47→22:44)
[2023-02-09] MEDS: Omeprazole 20 MG CAPSULE.DR PO (05:47)
[2023-02-09 06:56] VITALS: BP 117/58; PULSE 80; RESP 16; TEMP 36.7; O2SAT 97
[2023-02-09 07:09] LABS: Glucose, Whole Blood 107 mg/dL (60-115)
--- NOTE | 2023-02-09 08:25 | P.CDIM_ITS ---
PROVIDER RESPONSE TEXT: To clarify, the appropriate diagnosis supported by the clinical indicators: Pressure (decubitus) ulcer stage 2, left buttock QUERY TEXT: PHYSICIAN'S DOCUMENTATION REQUEST Date of Query: 02/09/2023 07:16 AM EDT Patient Name: Lizzie Lemus Admit Date: 02/07/2023 Dear Fernando Putnam, A review of the medical record indicates additional documentation may be needed. Please review below and update the documentation accordingly. Clinical Indicators: Per Nursing Pressure Injury Assessment 02/07/23: wound left buttock stage 2, foam dressing Per Hospitalist Consultation 02/08/23 Patient states she has a sore on her backside that her daughter takes care of Stage II decubitus ulcer Wound nurse consult Patient positioning q2hr Based on the above, could you please provide further information regarding the ulcer/wound: Pressure (decubitus) ulcer stage 2, left buttock Other type of wound, please specify location Other (explain)Clinically unable to determine (explain)Thank you, Elizabeth Palacios RN Use of terms such as suspected, likely, concern for, or probable (associated with a specific diagnosi s that is being evaluated, monitored, or treated as if it exists) are acceptable and can be coded in the inpatient se tting, when documented at the time of discharge. Please use your independent medical judgment in providing your response. THIS QUERY IS PART OF THE PERMANENT MEDICAL RECORD
[2023-02-09] MEDS: atenoloL 50 MG TABLET PO (08:26)
[2023-02-09] MEDS: Isosorbide Mononitrate 30 MG TAB.ER.24H PO (08:26)
[2023-02-09] MEDS: Flecainide Acetate 50 MG TABLET 100 MG PO ×2 (08:26→20:15)
[2023-02-09] MEDS: Gabapentin 300 MG CAPSULE PO ×2 (08:26→20:15)
[2023-02-09] MEDS: Losartan Potassium 50 MG TABLET 100 MG PO (08:26)
[2023-02-09] MEDS: Nystatin Powder 15 GM BOTTLE 1 APPL TOPICAL ×2 (08:27→20:21)
--- NOTE | 2023-02-09 08:40 | P.PNGS_ITS ---
Subjective Subjective Date of Service: 02/09/23 Interval history: Patient more awake, conversant this morning. Tolerating her liquid diet. Unsure if she has passed any flatus or stool. Physical Exam 2 Vital Signs: Vital Signs: Last Vital Signs Temp 98.1 F 02/09/23 06:56 Pulse 80 02/09/23 06:56 Resp 16 02/09/23 06:56 BP 117/58 L 02/09/23 06:56 Pulse Ox 97 02/09/23 06:56 O2 Del Method Nasal Cannula 02/09/23 06:56 O2 Flow Rate 2 02/09/23 06:56 BMI result Body Mass Index 44.9 GI: Other: Abdomen corpulent, soft. Incision clean dry and intact. Abdominal binder in place. Objective Data Active Medications Albuterol Sulfate (Albuterol Sulfate 90 Mcg 8 Gm Inhaler) 2 puff INHALE Q6H PRN PRN Reason: bronchospasm Albuterol/Ipratropium (Albuterol/Iprat 2.5/0.5mg 3 Ml Ampul.Neb) 3 ml INHALE RQ4H PRN PRN Reason: Shortness of Breath/Wheezing Last Admin: 02/09/23 04:04 Dose: 3 ml Documented By: SHELLEY Amitriptyline HCl (Amitriptyline Hcl 25 Mg Tablet) 25 mg PO BEDTIME [facility] Last Admin: 02/08/23 20:25 Dose: 25 mg Documented By: MARIANNE Atenolol (Atenolol 50 Mg Tablet) 50 mg PO DAILY [facility]; Protocol Last Admin: 02/09/23 08:26 Dose: 50 mg Documented By: LEWIS Dextrose (Dextrose 50 % 25 Gm/50 Ml Syringe) 25 gm IVPUSH Q15M PRN; Protocol PRN Reason: per Hypoglycemia Standing Ord. Flecainide Acetate (Flecainide Acetate 50 Mg Tablet) 100 mg PO BID [facility] Last Admin: 02/09/23 08:26 Dose: 100 mg Documented By: LEWIS Gabapentin (Gabapentin 300 Mg Capsule) 300 mg PO BID [facility] Last Admin: 02/09/23 08:26 Dose: 300 mg Documented By: LEWIS Glucose (Glucose Gel 15 Gm Gel..Gram.) 15 gm PO Q15M PRN; Protocol PRN Reason: per Hypoglycemia Standing Ord. Lactated Ringer's (Lr) 1,000 mls @ 100 mls/hr IVCONT .Q10H [facility] Last Admin: 02/09/23 01:00 Dose: 100 mls/hr Documented By: MARIANNE Acetaminophen (Ofirmev) 1,000 mg in 100 mls @ 400 mls/hr IV Q6H [facility] Last Infusion: 02/09/23 06:47 Dose: Infused Documented By: MARIANNE Insulin Glargine (Insulin Glargine,Hum.Rec.Anlog 100 Unit/Ml 10 Ml Vial) 20 unit SUBCUT ONCE ONE Stop: 02/09/23 21:01 Insulin Human Lispro (Insulin Lispro 100 Unit/Ml 3 Ml Vial) 0 unit SUBCUT QIDACHS [facility]; Protocol Last Admin: 02/09/23 07:12 Dose: Not Given Documented By: LEWIS Non-Admin Reason: No Insulin Coverage Isosorbide Mononitrate (Isosorbide Mononitrate 30 Mg Tab.Er.24h) 30 mg PO DAILY [facility]; Protocol Last Admin: 02/09/23 08:26 Dose: 30 mg Documented By: LEWIS Latanoprost (Latanoprost 0.005 % Ophth Cristina 2.5 Ml Drops) 1 drop EYE-BOTH BEDTIME [facility] Last Admin: 02/08/23 20:25 Dose: 1 drop Documented By: MARIANNE Lidocaine (Lidocaine 4 % Patch Adh..Patch) 1 patch TRANSDERMA DAILY PRN PRN Reason: pain Losartan Potassium (Losartan Potassium 50 Mg Tablet) 100 mg PO DAILY [facility]; Protocol Last Admin: 02/09/23 08:26 Dose: 100 mg Documented By: LEWIS Morphine Sulfate (Morphine Sulfate 4 Mg/Ml Cartridge) 4 mg IVPUSH Q4H PRN; Protocol PRN Reason: Pain, Severe (Pain Scale 7-10) Last Admin: 02/09/23 05:47 Dose: 4 mg Documented By: MARIANNE Nystatin (Nystatin Powder 15 Gm Bottle) 1 appl TOPICAL BID [facility]; Protocol Last Admin: 02/09/23 08:27 Dose: 1 appl Documented By: LEWIS Omeprazole (Omeprazole 20 Mg Capsule.) 20 mg PO DAILY@0630 [facility] Last Admin: 02/09/23 05:47 Dose: 20 mg Documented By: MARIANNE Oxycodone HCl (Oxycodone Hcl Immed Release 5 Mg Tablet) 5 mg PO Q4H PRN PRN Reason: Pain, Moderate(Pain Scale 4-6) Oxycodone HCl (Oxycodone Hcl Immed Release 5 Mg Tablet) 10 mg PO Q4H PRN PRN Reason: Pain, Severe (Pain Scale 7-10) Last Admin: 02/08/23 17:54 Dose: 10 mg Documented By: AIDA Sodium Chloride (0.9 % Sodium Chloride Flush 3 Ml Syringe) [facility] Last Admin: 02/09/23 07:13 Dose: Not Given Documented By: LEWIS Non-Admin Reason: IV Running Labs 02/07/23 01:23 02/07/23 01:23 Labs: Laboratory Results - last 24 hr 02/08/23 02/08/23 02/08/23 11:00 12:28 16:40 POC Glucose 152 H 109 Magnesium 1.9 Urine Color Urine Appearance Urine pH Ur Specific Zirconia Urine Protein Urine Glucose (UA) Urine Ketones Urine Blood Urine Nitrite Ur Leukocyte Esterase Urine RBC Urine WBC Ur Squamous Epith Cells Urine Bacteria Hyaline Casts 02/08/23 02/08/23 02/09/23 18:45 21:04 07:04 POC Glucose 96 107 Magnesium Urine Color Dark Yellow Urine Appearance Clear Urine pH 6.0 Ur Specific Zirconia 1.025 Urine Protein 30 (1+) H Urine Glucose (UA) Negative Urine Ketones Negative Urine Blood Negative Urine Nitrite Negative Ur Leukocyte Esterase Trace H Urine RBC 0-2 Urine WBC 6-10 H Ur Squamous Epith Cells 0-2 Urine Bacteria None Seen Hyaline Casts 0-2 Procedures Date of Service Date of Service: 02/09/23 Progress Note: A&P Assessment and plan (1) Incarcerated ventral hernia: Status: Acute (2) SBO (small bowel obstruction): Status: Acute Plan Spoke with the patient's nurse, and patient needs to be out of bed/ambulating. Encourage incentive spirometry. Advanced diet as tolerated. Is noted from yesterday, patient's daughter does not want patient to go to an ECF would like her to return home , were the family is her field secretary. Time Spent With Patient Time: Total time managing care of this patient today ____ minutes. Quality Stroke Does the patient have a stroke diagnosis?: No VTE Prior VTE?: No VTE Risk Level:: Surgical - low VTE Device Contraindication: N/A - Device Ordered VTE Drug Contraindication: N/A - Med Ordered
[2023-02-09 11:06] LABS: Glucose, Whole Blood 103 mg/dL (60-115)
--- NOTE | 2023-02-09 11:15 | MHC.CM.PN ---
Received a message from RN: DTR Bell requesting a call. Spoke with Bell about baseline functional mobility. Patient is refusing to work with PT for evaluation. Patient has [facility] SN and PT in the home. DTR states that if pt will not participate (and qualify) for STR, home with services is a safe option. Plan is to follow up once PT is able to evaluate the patient. DP Home with resumption of [facility] and [facility] services. Family will provide transportation home vs STR via BLS.
[2023-02-09 14:54] VITALS: BP 131/65; PULSE 80; RESP 18; TEMP 37.1; O2SAT 97
[2023-02-09 16:01] LABS: Glucose, Whole Blood 94 mg/dL (60-115)
--- NOTE | 2023-02-09 18:10 | P.PNIM_ITS ---
Subjective Subjective Date of Service: 02/09/23 Interval History: f/u on med consult in post op pt s/p hernia repair with mesh seems to be doing ok, no new issues Physical Exam 2 Vital Signs: Vital Signs: Last Vital Signs Temp 98.8 F 02/09/23 14:54 Pulse 80 02/09/23 14:54 Resp 18 02/09/23 14:54 BP 131/65 02/09/23 14:54 Pulse Ox 97 02/09/23 14:54 O2 Del Method Nasal Cannula 02/09/23 14:54 O2 Flow Rate 2.0 02/09/23 14:54 BMI result Body Mass Index 44.9 Const: Other: Gen: in no acute distress HEENT: sclera anicteric, moist mucus membranes Neck: supple Lungs: clear to auscultation bilaterally Heart: regular rate and rhythm, no murmurs Abd: soft, non-tender, non-distended Ext: no edema Skin: shallow ulcer right lower leg medially, chronic venous stasis dermatitis Neuro: alert and oriented x3, no focal findings Psych: appropriate affect Objective Data Active Medications Albuterol Sulfate (Albuterol Sulfate 90 Mcg 8 Gm Inhaler) 2 puff INHALE Q6H PRN PRN Reason: bronchospasm Albuterol/Ipratropium (Albuterol/Iprat 2.5/0.5mg 3 Ml Ampul.Neb) 3 ml INHALE RQ4H PRN PRN Reason: Shortness of Breath/Wheezing Last Admin: 02/09/23 04:04 Dose: 3 ml Documented By: SHELLEY Amitriptyline HCl (Amitriptyline Hcl 25 Mg Tablet) 25 mg PO BEDTIME [facility] Last Admin: 02/08/23 20:25 Dose: 25 mg Documented By: MARIANNE Atenolol (Atenolol 50 Mg Tablet) 50 mg PO DAILY [facility]; Protocol Last Admin: 02/09/23 08:26 Dose: 50 mg Documented By: LEWIS Dextrose (Dextrose 50 % 25 Gm/50 Ml Syringe) 25 gm IVPUSH Q15M PRN; Protocol PRN Reason: per Hypoglycemia Standing Ord. Flecainide Acetate (Flecainide Acetate 50 Mg Tablet) 100 mg PO BID [facility] Last Admin: 02/09/23 08:26 Dose: 100 mg Documented By: LEWIS Gabapentin (Gabapentin 300 Mg Capsule) 300 mg PO BID [facility] Last Admin: 02/09/23 08:26 Dose: 300 mg Documented By: LEWIS Glucose (Glucose Gel 15 Gm Gel..Gram.) 15 gm PO Q15M PRN; Protocol PRN Reason: per Hypoglycemia Standing Ord. Acetaminophen (Ofirmev) 1,000 mg in 100 mls @ 400 mls/hr IV Q6H [facility] Last Admin: 02/09/23 13:16 Dose: Not Given Documented By: LEWIS Non-Admin Reason: Physician Held Med Lactated Ringer's (Lr) 1,000 mls @ 100 mls/hr IVCONT .Q10H [facility] Last Admin: 02/09/23 15:27 Dose: 100 mls/hr Documented By: LEWIS Insulin Glargine (Insulin Glargine,Hum.Rec.Anlog 100 Unit/Ml 10 Ml Vial) 20 unit SUBCUT ONCE ONE Stop: 02/09/23 21:01 Insulin Human Lispro (Insulin Lispro 100 Unit/Ml 3 Ml Vial) 0 unit SUBCUT QIDACHS [facility]; Protocol Last Admin: 02/09/23 16:15 Dose: Not Given Documented By: LEWIS Non-Admin Reason: No Insulin Coverage Isosorbide Mononitrate (Isosorbide Mononitrate 30 Mg Tab.Er.24h) 30 mg PO DAILY [facility]; Protocol Last Admin: 02/09/23 08:26 Dose: 30 mg Documented By: LEWIS Latanoprost (Latanoprost 0.005 % Ophth Cristina 2.5 Ml Drops) 1 drop EYE-BOTH BEDTIME [facility] Last Admin: 02/08/23 20:25 Dose: 1 drop Documented By: MARIANNE Lidocaine (Lidocaine 4 % Patch Adh..Patch) 1 patch TRANSDERMA DAILY PRN PRN Reason: pain Losartan Potassium (Losartan Potassium 50 Mg Tablet) 100 mg PO DAILY [facility]; Protocol Last Admin: 02/09/23 08:26 Dose: 100 mg Documented By: LEWIS Morphine Sulfate (Morphine Sulfate 4 Mg/Ml Cartridge) 4 mg IVPUSH Q4H PRN; Protocol PRN Reason: Pain, Severe (Pain Scale 7-10) Last Admin: 02/09/23 05:47 Dose: 4 mg Documented By: MARIANNE Nystatin (Nystatin Powder 15 Gm Bottle) 1 appl TOPICAL BID [facility]; Protocol Last Admin: 02/09/23 08:27 Dose: 1 appl Documented By: LEWIS Omeprazole (Omeprazole 20 Mg Capsule.Dr) 20 mg PO DAILY@0630 [facility] Last Admin: 02/09/23 05:47 Dose: 20 mg Documented By: MARIANNE Oxycodone HCl (Oxycodone Hcl Immed Release 5 Mg Tablet) 5 mg PO Q4H PRN PRN Reason: Pain, Moderate(Pain Scale 4-6) Oxycodone HCl (Oxycodone Hcl Immed Release 5 Mg Tablet) 10 mg PO Q4H PRN PRN Reason: Pain, Severe (Pain Scale 7-10) Last Admin: 02/08/23 17:54 Dose: 10 mg Documented By: AIDA Sodium Chloride (0.9 % Sodium Chloride Flush 3 Ml Syringe) 3 ml IVFLUSH QSHIFT [facility] Last Admin: 02/09/23 15:29 Dose: Not Given Documented By: LEWIS Non-Admin Reason: IV Running Labs 02/07/23 01:23 02/07/23 01:23 Labs: Laboratory Results - last 24 hr 02/08/23 02/08/23 02/09/23 18:45 21:04 07:04 POC Glucose 96 107 Urine Color Dark Yellow Urine Appearance Clear Urine pH 6.0 Ur Specific [place] 1.025 Urine Protein 30 (1+) H Urine Glucose (UA) Negative Urine Ketones Negative Urine Blood Negative Urine Nitrite Negative Ur Leukocyte Esterase Trace H Urine RBC 0-2 Urine WBC 6-10 H Ur Squamous Epith Cells 0-2 Urine Bacteria None Seen Hyaline Casts 0-2 02/09/23 02/09/23 11:02 15:57 POC Glucose 103 94 Urine Color Urine Appearance Urine pH Ur Specific [place] Urine Protein Urine Glucose (UA) Urine Ketones Urine Blood Urine Nitrite Ur Leukocyte Esterase Urine RBC Urine WBC Ur Squamous Epith Cells Urine Bacteria Hyaline Casts Microbiology Microbiology Results: Microbiology 02/08/23 Unknown Urine Culture - Preliminary Urine clean catch - Urine anderson top No growth to date. Assessment and Plan (1) Afib: Status: Inactive (2) Coronary artery disease: Status: Inactive Plan Patient is a Macedonian-speaking 76-year-old female with a PMH significant for COPD, renal mass, insulin-dependent type 2 diabetes with neuropathy, CHF unspecified EF, paroxysmal AFib on flecainide no longer anticoagulated with Pradaxa, AV block with dual chamber pacemaker, HTN, HLD, GERD, CAD, fibromyalgia, bipolar disorder, and balance disorder ambulating with walker at baseline who presented to the emergency room for evaluation of nausea and burning epigastric pain with dysuria. Patient was admitted under General surgery for large 5 cm incarcerated umbilical hernia, or patient underwent hernia repair with mesh on 02/07. Umbilical hernia repair on 02/07 management by surgery Hypomagnesemia, corrected and resolved. Stage II decubitus ulcer Wound nurse consult Patient positioning q2hr and optimize nutrition Insulin-dependent type 2 diabetes, BS are well controlled, continue present meds (SSI + lantus) HTN Continue home meds Paroxysmal atrial fibrillation Pacemaker in place Continue flecainide, atenolol CHF, unspecified ejection fraction Not in acute exacerbation Continue p.o. diuretics COPD Not in acute exacerbation Continue home inhalers CAD/HLD Continue statin, isosorbide, beta-tara Diabetic polyneuropathy Continue gabapentin Time Spent With Patient Time: Total time managing care of this patient today ____ minutes. Quality Stroke Does the patient have a stroke diagnosis?: No VTE Prior VTE?: No VTE Risk Level:: Surgical - low VTE Device Contraindication: N/A - Device Ordered VTE Drug Contraindication: N/A - Med Ordered
[2023-02-09 19:09] VITALS: BP 142/67; PULSE 81; RESP 20; TEMP 36.1; O2SAT 99
[2023-02-09] MEDS: Amitriptyline HCl 25 MG TABLET PO (20:15)
[2023-02-09] MEDS: Latanoprost 0.005 % Ophth Sol 2.5 ML DROPS 1 DROP EYE-BOTH (20:27)
[2023-02-09 21:19] LABS: Glucose, Whole Blood 105 mg/dL (60-115)
[2023-02-09] MEDS: 0.9 % Sodium Chloride Flush 3 ML SYRINGE IVFLUSH (22:45)
[2023-02-10] MEDS: Acetaminophen 1,000 MG/100 ML PIGGYBACK 400 MG IV ×3 (00:04→13:00)
[2023-02-10] MEDS: Lactated Ringers 1,000 ML 100 ML IVCONT ×2 (02:23→10:45)
[2023-02-10 03:43] VITALS: BP 145/66; PULSE 81; RESP 18; TEMP 36.1; O2SAT 97
[2023-02-10] MEDS: Morphine Sulfate 4 MG/ML CARTRIDGE IVPUSH (05:11)
[2023-02-10 07:22] LABS: Glucose, Whole Blood 112 mg/dL (60-115)
[2023-02-10 07:59] VITALS: BP 140/63; PULSE 80; RESP 20; TEMP 36; O2SAT 98
[2023-02-10] MEDS: Gabapentin 300 MG CAPSULE PO ×2 (08:21→19:52)
[2023-02-10] MEDS: Losartan Potassium 50 MG TABLET 100 MG PO (08:21)
[2023-02-10] MEDS: atenoloL 50 MG TABLET PO (08:21)
[2023-02-10] MEDS: Isosorbide Mononitrate 30 MG TAB.ER.24H PO (08:21)
[2023-02-10] MEDS: Flecainide Acetate 50 MG TABLET 100 MG PO ×2 (08:21→19:52)
[2023-02-10] MEDS: Nystatin Powder 15 GM BOTTLE 1 APPL TOPICAL ×2 (08:22→19:53)
--- NOTE | 2023-02-10 08:24 | HO.PM.IMPN ---
Subjective Subjective Date of Service: 02/10/23 Interval History: f/u on med consult in post op pt s/p hernia repair with mesh seems to be doing ok, no new issues, diabetes is well controlle, pain controlled and tolerating regular diet Physical Exam Vital Signs: Vital Signs: Last Vital Signs Temp 96.8 F 02/10/23 07:59 Pulse 80 02/10/23 07:59 Resp 20 02/10/23 07:59 BP 140/63 H 02/10/23 07:59 Pulse Ox 98 02/10/23 07:59 O2 Del Method Nasal Cannula 02/10/23 07:59 O2 Flow Rate 2 02/10/23 07:59 BMI result Body Mass Index 44.9 Const: Other: Gen: in no acute distress HEENT: sclera anicteric, moist mucus membranes Neck: supple Lungs: clear to auscultation bilaterally Heart: regular rate and rhythm, no murmurs Abd: soft, non-tender, non-distended Ext: no edema Skin: shallow ulcer right lower leg medially, chronic venous stasis dermatitis Neuro: alert and oriented x3, no focal findings Psych: appropriate affect Objective Data Active Medications Albuterol Sulfate (Albuterol Sulfate 90 Mcg 8 Gm Inhaler) 2 puff INHALE Q6H PRN PRN Reason: bronchospasm Albuterol/Ipratropium (Albuterol/Iprat 2.5/0.5mg 3 Ml Ampul.Neb) 3 ml INHALE RQ4H PRN PRN Reason: Shortness of Breath/Wheezing Last Admin: 02/09/23 04:04 Dose: 3 ml Documented By: SHELLEY Amitriptyline HCl (Amitriptyline Hcl 25 Mg Tablet) 25 mg PO BEDTIME [facility] Last Admin: 02/09/23 20:15 Dose: 25 mg Documented By: MARIANNE Atenolol (Atenolol 50 Mg Tablet) 50 mg PO DAILY [facility]; Protocol Last Admin: 02/09/23 08:26 Dose: 50 mg Documented By: LEWIS Dextrose (Dextrose 50 % 25 Gm/50 Ml Syringe) 25 gm IVPUSH Q15M PRN; Protocol PRN Reason: per Hypoglycemia Standing Ord. Flecainide Acetate (Flecainide Acetate 50 Mg Tablet) 100 mg PO BID [facility] Last Admin: 02/09/23 20:15 Dose: 100 mg Documented By: MARIANNE Gabapentin (Gabapentin 300 Mg Capsule) 300 mg PO BID [facility] Last Admin: 02/09/23 20:15 Dose: 300 mg Documented By: MARIANNE Glucose (Glucose Gel 15 Gm Gel..Gram.) 15 gm PO Q15M PRN; Protocol PRN Reason: per Hypoglycemia Standing Ord. Acetaminophen (Ofirmev) 1,000 mg in 100 mls @ 400 mls/hr IV Q6H [facility] Last Infusion: 02/10/23 00:21 Dose: Infused Documented By: MARIANNE Lactated Ringer's (Lr) 1,000 mls @ 100 mls/hr IVCONT .Q10H [facility] Last Admin: 02/10/23 02:23 Dose: 100 mls/hr Documented By: MARIANNE Insulin Human Lispro (Insulin Lispro 100 Unit/Ml 3 Ml Vial) 0 unit SUBCUT QIDACHS [facility]; Protocol Last Admin: 02/10/23 07:38 Dose: Not Given Documented By: LEWIS Non-Admin Reason: No Insulin Coverage Isosorbide Mononitrate (Isosorbide Mononitrate 30 Mg Tab.Er.24h) 30 mg PO DAILY [facility]; Protocol Last Admin: 02/09/23 08:26 Dose: 30 mg Documented By: LEWIS Latanoprost (Latanoprost 0.005 % Ophth Cristina 2.5 Ml Drops) 1 drop EYE-BOTH BEDTIME [facility] Last Admin: 02/09/23 20:27 Dose: 1 drop Documented By: MARIANNE Lidocaine (Lidocaine 4 % Patch Adh..Patch) 1 patch TRANSDERMA DAILY PRN PRN Reason: pain Losartan Potassium (Losartan Potassium 50 Mg Tablet) 100 mg PO DAILY [facility]; Protocol Last Admin: 02/09/23 08:26 Dose: 100 mg Documented By: LEWIS Morphine Sulfate (Morphine Sulfate 4 Mg/Ml Cartridge) 4 mg IVPUSH Q4H PRN; Protocol PRN Reason: Pain, Severe (Pain Scale 7-10) Last Admin: 02/10/23 05:11 Dose: 4 mg Documented By: MARIANNE Nystatin (Nystatin Powder 15 Gm Bottle) 1 appl TOPICAL BID [facility]; Protocol Last Admin: 02/09/23 20:21 Dose: 1 appl Documented By: MARIANNE Omeprazole (Omeprazole 20 Mg Capsule.Dr) 20 mg PO DAILY@0630 [facility] Last Admin: 02/10/23 07:03 Dose: Not Given Documented By: MARIANNE Non-Admin Reason: Patient Refused Oxycodone HCl (Oxycodone Hcl Immed Release 5 Mg Tablet) 5 mg PO Q4H PRN PRN Reason: Pain, Moderate(Pain Scale 4-6) Oxycodone HCl (Oxycodone Hcl Immed Release 5 Mg Tablet) 10 mg PO Q4H PRN PRN Reason: Pain, Severe (Pain Scale 7-10) Last Admin: 02/08/23 17:54 Dose: 10 mg Documented By: AIDA Sodium Chloride (0.9 % Sodium Chloride Flush 3 Ml Syringe) 3 ml IVFLUSH QSHIFT [facility] Last Admin: 02/10/23 07:38 Dose: Not Given Documented By: LEWIS Non-Admin Reason: IV Running Labs 02/07/23 01:23 02/07/23 01:23 Labs: Laboratory Results - last 24 hr 02/09/23 02/09/23 02/09/23 11:02 15:57 20:09 POC Glucose 103 94 105 02/10/23 07:13 POC Glucose 112 Microbiology Microbiology Results: Microbiology 02/08/23 Unknown Urine Culture - Preliminary Urine clean catch - Urine anderson top No growth to date. Assessment and Plan (1) Afib: Status: Inactive (2) Coronary artery disease: Status: Inactive Plan Patient is a Kinyarwanda-speaking 76-year-old female with a PMH significant for COPD, renal mass, insulin-dependent type 2 diabetes with neuropathy, CHF unspecified EF, paroxysmal AFib on flecainide no longer anticoagulated with Pradaxa, AV block with dual chamber pacemaker, HTN, HLD, GERD, CAD, fibromyalgia, bipolar disorder, and balance disorder ambulating with walker at baseline who presented to the emergency room for evaluation of nausea and burning epigastric pain with dysuria. Patient was admitted under General surgery for large 5 cm incarcerated umbilical hernia, or patient underwent hernia repair with mesh on 02/07. Umbilical hernia repair on 02/07 management by surgery, tolerating regular diet with no other complaint Hypomagnesemia, corrected and resolved. Stage II decubitus ulcer Wound nurse consult Patient positioning q2hr and optimize nutrition Insulin-dependent type 2 diabetes, BS are well controlled, continue present meds (SSI + lantus), to resume prior meds upon discharge HTN Continue home meds Paroxysmal atrial fibrillation Pacemaker in place Continue flecainide, atenolol, no longer anticoagulated CHF, unspecified ejection fraction Not in acute exacerbation Continue p.o. diuretics COPD Not in acute exacerbation Continue home inhalers CAD/HLD Continue statin, isosorbide, beta-tara Diabetic polyneuropathy Continue gabapentin Time Spent With Patient Time: Total time managing care of this patient today ____ minutes. Quality Stroke Does the patient have a stroke diagnosis?: No VTE Prior VTE?: No VTE Risk Level:: Surgical - low VTE Device Contraindication: N/A - Device Ordered VTE Drug Contraindication: N/A - Med Ordered
--- NOTE | 2023-02-10 10:25 | P.PNGS_ITS ---
Subjective Subjective Date of Service: 02/10/23 Interval history: Still requiring IV analgesics for pain. Tolerating solid diet. No BM. Participated with PT yesterday who is recommending STR. Physical Exam 2 Vital Signs: Vital Signs: Last Vital Signs Temp 96.8 F 02/10/23 07:59 Pulse 80 02/10/23 07:59 Resp 20 02/10/23 07:59 BP 140/63 H 02/10/23 07:59 Pulse Ox 98 02/10/23 07:59 O2 Del Method Nasal Cannula 02/10/23 07:59 O2 Flow Rate 2 02/10/23 07:59 BMI result Body Mass Index 44.9 Const: General: comfortable, no acute distress and alert O rientation/consciousness: patient oriented x3 GI: Inspection: No distended and Yes incision (clean) Palpation (GI): Soft to palpation and Tenderness to palpation present (GI) (mild incisional) Skin: General skin exam: no rashes or lesions noted Neuro: General: patient oriented x3 and moves all extremities Objective Data Active Medications Albuterol Sulfate (Albuterol Sulfate 90 Mcg 8 Gm Inhaler) 2 puff INHALE Q6H PRN PRN Reason: bronchospasm Albuterol/Ipratropium (Albuterol/Iprat 2.5/0.5mg 3 Ml Ampul.Neb) 3 ml INHALE RQ4H PRN PRN Reason: Shortness of Breath/Wheezing Last Admin: 02/09/23 04:04 Dose: 3 ml Documented By: SHELLEY Amitriptyline HCl (Amitriptyline Hcl 25 Mg Tablet) 25 mg PO BEDTIME [facility] Last Admin: 02/09/23 20:15 Dose: 25 mg Documented By: MARIANNE Atenolol (Atenolol 50 Mg Tablet) 50 mg PO DAILY [facility]; Protocol Last Admin: 02/10/23 08:21 Dose: 50 mg Documented By: LEWIS Dextrose (Dextrose 50 % 25 Gm/50 Ml Syringe) 25 gm IVPUSH Q15M PRN; Protocol PRN Reason: per Hypoglycemia Standing Ord. Flecainide Acetate (Flecainide Acetate 50 Mg Tablet) 100 mg PO BID [facility] Last Admin: 02/10/23 08:21 Dose: 100 mg Documented By: LEWIS Gabapentin (Gabapentin 300 Mg Capsule) 300 mg PO BID [facility] Last Admin: 02/10/23 08:21 Dose: 300 mg Documented By: LEWIS Glucose (Glucose Gel 15 Gm Gel..Gram.) 15 gm PO Q15M PRN; Protocol PRN Reason: per Hypoglycemia Standing Ord. Acetaminophen (Ofirmev) 1,000 mg in 100 mls @ 400 mls/hr IV Q6H [facility] Last Infusion: 02/10/23 08:40 Dose: Infused Documented By: LEWIS Lactated Ringer's (Lr) 1,000 mls @ 100 mls/hr IVCONT .Q10H [facility] Last Admin: 02/10/23 02:23 Dose: 100 mls/hr Documented By: MARIANNE Insulin Human Lispro (Insulin Lispro 100 Unit/Ml 3 Ml Vial) 0 unit SUBCUT QIDACHS [facility]; Protocol Last Admin: 02/10/23 07:38 Dose: Not Given Documented By: LEWIS Non-Admin Reason: No Insulin Coverage Isosorbide Mononitrate (Isosorbide Mononitrate 30 Mg Tab.Er.24h) 30 mg PO DAILY [facility]; Protocol Last Admin: 02/10/23 08:21 Dose: 30 mg Documented By: LEWIS Latanoprost (Latanoprost 0.005 % Ophth Cristina 2.5 Ml Drops) 1 drop EYE-BOTH BEDTIME [facility] Last Admin: 02/09/23 20:27 Dose: 1 drop Documented By: MARIANNE Lidocaine (Lidocaine 4 % Patch Adh..Patch) 1 patch TRANSDERMA DAILY PRN PRN Reason: pain Losartan Potassium (Losartan Potassium 50 Mg Tablet) 100 mg PO DAILY [facility]; Protocol Last Admin: 02/10/23 08:21 Dose: 100 mg Documented By: LEWIS Morphine Sulfate (Morphine Sulfate 4 Mg/Ml Cartridge) 4 mg IVPUSH Q4H PRN; Protocol PRN Reason: Pain, Severe (Pain Scale 7-10) Last Admin: 02/10/23 05:11 Dose: 4 mg Documented By: MARIANNE Nystatin (Nystatin Powder 15 Gm Bottle) 1 appl TOPICAL BID [facility]; Protocol Last Admin: 02/10/23 08:22 Dose: 1 appl Documented By: LEWIS Omeprazole (Omeprazole 20 Mg Caro.) 20 mg PO DAILY@0630 [facility] Last Admin: 02/10/23 07:03 Dose: Not Given Documented By: MARIANNE Non-Admin Reason: Patient Refused Oxycodone HCl (Oxycodone Hcl Immed Release 5 Mg Tablet) 5 mg PO Q4H PRN PRN Reason: Pain, Moderate(Pain Scale 4-6) Oxycodone HCl (Oxycodone Hcl Immed Release 5 Mg Tablet) 10 mg PO Q4H PRN PRN Reason: Pain, Severe (Pain Scale 7-10) Last Admin: 02/08/23 17:54 Dose: 10 mg Documented By: AIDA Sodium Chloride (0.9 % Sodium Chloride Flush 3 Ml Syringe) 3 ml IVFLUSH QSHIFT [facility] Last Admin: 02/10/23 07:38 Dose: Not Given Documented By: LEWIS Non-Admin Reason: IV Running Labs 02/07/23 01:23 02/07/23 01:23 Labs: Laboratory Results - last 24 hr 02/09/23 02/09/23 02/09/23 11:02 15:57 20:09 POC Glucose 103 94 105 02/10/23 07:13 POC Glucose 112 Microbiology Microbiology Results: Microbiology 02/08/23 Unknown Urine Culture - Preliminary Urine clean catch - Urine anderson top No growth to date. Procedures Date of Service Date of Service: 02/10/23 Progress Note: A&P Assessment and plan (1) Incarcerated ventral hernia: Status: Acute (2) SBO (small bowel obstruction): Status: Acute Plan Doing well post op. Abd benign, incision clean. Encouraged PO analgesics in preparation. Will add colace, miralax for bowel regimen. PT recommending STR. Will discuss with case management regarding discharge planning, possibly today if bed available. Time Spent With Patient Time: Total time managing care of this patient today ____ minutes. Quality Stroke Does the patient have a stroke diagnosis?: No VTE Prior VTE?: No VTE Risk Level:: Surgical - low VTE Device Contraindication: N/A - Device Ordered VTE Drug Contraindication: N/A - Med Ordered
--- NOTE | 2023-02-10 10:26 | MHC.CLN ---
F/U DIET=DIABETIC 1800 KCALS-APPROPRIATE. INCREASED PROTEIN NEEDS DUE TO IMPAIRED SKIN INTEGRITY. STAGE II PRESSURE INJURY TO COCCYX. SUPPLEMENT CHANGED TO ENSURE MAX PROTEIN BID. PROVIDES 300 KCALS, 60 G PROTEIN. INTAKE VARIABLE, 0-100%, WITH MOST 0-25%. FOLLOW FOR PO INTAKE AND WOUND HEALING.
[2023-02-10] MEDS: polyethylene glycoL 3350 17 GM POWD.PACK PO (10:45)
[2023-02-10 11:10] LABS: Glucose, Whole Blood 137 mg/dL (60-115)
--- NOTE | 2023-02-10 13:23 | HO.WOUND ---
Wound Care Consult Reason for consult: Sacral decubitus ulcer Patient is a zambian speaking woman who comes in from home. She was in bed at the time of consult. Assistance is needed for repositioning patient. Patient has a stage III pressure injury to her left buttock and some excoriation to her coccyx. Foam border removed. Moderated serosanguineous, purulent drainage on the dressing from the left buttock and a scant amount of sanguineous drainage from the excoriated area. Wound bed appearance was large red tissue with a small amount of fibrin/slough. No undermining or tunneling. Wound edges were attached. No odor. Surrounding skin is intact with some scarring. Wound measurement was a cluster of 2 areas, measuring 4cm x 2.5cm x 0.1cm. Wound cleaned with gauze. Zinc barrier cream applied to the periwound and the excoriation. Alginate ag cut to wound sizes and applied to the wound beds. Covered with a foam border. Recommendation: Cleanse wound with sea clens wound cleanser or normal saline. Apply zinc barrier cream to the periwound and excoriated area. Cut alginate ag to wound sizes and apply to the wound beds. Cover with a foam border. The drainage should be better managed with the alginate, so dressing changes can be done every other day but if there is still an excessive amount of drainage on the dressing, would change dressing daily. Make sure to reposition patient frequently, at least every 2 hours. Nutrition should be optimized, making sure protein intake is increased if able to aid in wound healing. Also make sure there is good moisture control with incontinent episodes. If there are any changes or questions, please feel free and reconsult wound care.
[2023-02-10] MEDS: Albuterol/Iprat 2.5/0.5MG 3 ML AMPUL.NEB INHALE (13:26)
[2023-02-10 13:28] VITALS: PULSE 82; RESP 20; O2SAT 98
--- NOTE | 2023-02-10 13:43 | MHC.CM.PN ---
per rounds no dc date at this time dc plan home no servangelitois
--- NOTE | 2023-02-10 14:32 | PM.DS ---
DS: Providers Provider Date of Service: 02/11/23 Date of admission: 02/07/23 05:42 Primary care physician: Micheal Biggs PA-C Attending physician on admission: Fernando Putnam Consults: 02/07/23 17:03 Consult to Hospitalist Routine Comment: Consulting Provider: Hospitalist Reason For Exam: medical management s/p hernia repair Attending physician on discharge: Fernando Putnam DS: Diagnosis Discharge Diagnosis (1) Incarcerated ventral hernia: Status: Acute (2) SBO (small bowel obstruction): Status: Acute DS: Summary Hospital Course Hospital Course: HPI AT ADMISSION: Lizzie Lemus is a 77 year old female with a significant plethora of medical problems who now presents with periumbilical abdominal pain and nausea x1 day. Prior to this she had a bowel movement and passing flatus. Patient has a lower midline scar. Patient has history of dementia and is somewhat limited in providing any history. Workup in ER including CT scan demonstrates finding consistent with an incarcerated umbilical hernia. Chart was reviewed patient evaluated. Although documented that the patient is on Pradaxa, her [facility] facility states that she has not been on this for several months time. Her last dose was 12/01/22. This information just became available recently. I was in the process of coordinating with pharmacy obtaining the antidote to Pradaxa, Praxbind. Chart was reviewed patient evaluated HOSPITAL COURSE: She was admitted to the surgical service for treatment of the incarcerated umbilical hernia. It was recommended to proceed with repair. On 02/07/23, umbilical herniorrhaphy open technique with Bard mesh, partial omentectomy wa performed by Dr. Putnam without complication. The patient tolerated the procedure well. Hospitalist consult was obtained for management of her medical comorbidities. Her home medications were resumed with the exception of her antihyperglycemics and she was started on an ISS and lantus. The patient had an uncomplicated recovery course. She was advanced to a clear liquid diet. Her pain was controlled with IV and PO analgesics. She began to pass flatus. Her diet was advanced to solids. PT was consulted for discharge planning who recommended STR for convalescence. She however began to refuse to participate with physical therapy and therefore was not accepted by any STR facilities. Discharge was held. Family eventually agreed that she would be safe at home with them and resumption of services. On the day of discharge, she was tolerating a solid diet with adequate pain control on PO analgesics. She had evidence of GI function. Her abdomen was benign with clean incision. She was discharged to home on 02/14/23 with VNA services. She is to follow up in the office in 1 week. All of her home medications were resumed upon discharge. Status at Discharge Functional status at discharge: uses cane/walker Overall status at discharge: patient is not back to baseline Time Spent with Patient Time attestation: Total time managing care of this patient today ____ minutes. Discharge coordination time: Less than 30 minutes Quality: Safe Use of Opioids Does Pt have an Active Cancer Diagnosis on the Problem List?: No Quality: Stroke Does the patient have a stroke diagnosis?: No Physical Exam Vital Signs: Vital Signs: Last Vital Signs Temp 96.8 F 02/10/23 07:59 Pulse 82 02/10/23 13:28 Resp 20 02/10/23 13:28 BP 140/63 H 02/10/23 07:59 Pulse Ox 98 02/10/23 07:59 O2 Del Method Nasal Cannula 02/10/23 07:59 O2 Flow Rate 2 02/10/23 07:59 BMI result Body Mass Index 44.9 Const: General: comfortable, no acute distress and alert Nutritional Appearance: obese Orientation/consciousness: patient oriented x3 Resp: Effort & Inspection: normal respiratory effort GI: Other: protuberant abdomen Inspection: No distended and Yes incision (clean) Palpation (GI): Soft to palpation, Tenderness to palpation present (GI) (mild), no guarding and not rigid Skin: General skin exam: no rashes or lesions noted Neuro: General: patient oriented x3 and moves all extremities DS: Data Data Completed and Pending Completed studies during hospitalization [Text1]: 02/07/23 13:32 Surgical [PTH] Routine Hernia sac, ventral, herniorrhaphy: Fibromembranous and adipose tissue consistent with hernia Labs on day of discharge: Laboratory Results - last 24 hr 02/09/23 02/09/23 02/10/23 15:57 20:09 07:13 POC Glucose 94 105 112 02/10/23 11:06 POC Glucose 137 H Discharge Plan Discharge Anticipated Discharge Date/Time: 02/11/23 14:29 Patient Disposition: Home Health Service Discharge Diagnosis: incarcerated ventral hernia, SBO , s/p repair of incarcerated ventral hernia with mesh Referrals: [facility] [Other] - 1 Week Micheal Biggs PA-C [Primary Care Provider] - 1 Week Fernando Putnam MD [Physician] - 1 Week Discharge Medications: Continued (DME) Chair, shower Misc See Rx Instructions .ROUTE .MEDSUPPLY Qty: 1 0RF Rx Instructions: As directed (DME) lancing device with lancets Kit See Rx Instructions .Route Qty: 1 0RF Rx Instructions: As directed losartan 100 mg tablet 100 mg PO DAILY Qty: 90 1RF colchicine (gout) [Colcrys] 0.6 mg tablet 0.6 mg PO DAILY Qty: 90 2RF Januvia 50 mg tablet 50 mg PO DAILY 90 Days Qty: 90 3RF isosorbide mononitrate 30 mg tablet extended release 24 hr 30 mg PO DAILY 90 Days Qty: 90 2RF (DME) blood-glucose meter [OneTouch Ultra2 Meter] Misc See Rx Instructions .Route Qty: 1 0RF Rx Instructions: test 3 times a day (DME) OneTouch Ultra Test Strip See Rx Instructions .Route Qty: 100 5RF Rx Instructions: test 3x's per day (DME) lancets [OneTouch UltraSoft 2 Lancet] 30 gauge [facility] [place] See Rx Instructions .Route Qty: 200 5RF Rx Instructions: test 3x's per day (DME) pen needle, diabetic [BD Laury 2nd Gen Pen Needle] 32 gauge x 5/32 needle See Rx Instructions .Route Qty: 300 3RF Rx Instructions: Use to inject insulin 4 times per day gabapentin 300 mg capsule 300 mg PO BID 30 Days Qty: 60 1RF (DME) compr.stocking,knee,long,x-lrg Misc See Rx Instructions .Route Qty: 12 1RF Rx Instructions: WHITE SOCKS PLEASE atenolol 50 mg tablet 50 mg PO DAILY Qty: 30 3RF (DME) hospital bed Kit See Rx Instructions .Route Qty: 1 0RF Rx Instructions: As directed lidocaine 5 % adhesive patch,medicated 1 patch topical DAILY PRN (Reason: pain) Qty: 15 3RF Rx Instructions: leave on most painful area for up to 12 hrs oxycodone 5 mg tablet 5 mg PO BID 28 Days Qty: 56 0RF Rx Instructions: Partial Fill upon patient request. acetaminophen [Tylenol Extra Strength] 500 mg tablet 1,000 mg PO Q6H PRN (Reason: fever or pain) Qty: 20 0RF pantoprazole 40 mg tablet,delayed release (DR/EC) 40 mg PO DAILY@0630 albuterol sulfate 90 mcg/actuation HFA aerosol inhaler 2 puff PO Q6H PRN (Reason: bronchospasm) polyethylene glycol 3350 [Miralax] 17 gram Powder In Packet 17 g PO DAILY sennosides [Senna Lax] 8.6 mg tablet 8.6 mg PO BID insulin degludec [Tresiba FlexTouch U-100] 100 unit/mL (3 mL) insulin pen 50 unit subcut BID latanoprost 0.005 % Drops 1 drp OPHTHALMIC (EYE) QPM docusate sodium 100 mg capsule 100 mg PO DAILY insulin aspart U-100 [Novolog FlexPen U-100 Insulin] 100 unit/mL (3 mL) insulin pen See Protocol subcut TIDAC PRN (Reason: Hyperglycemia) Protocol: Insulin Correction Scale Less than or equal to 110 ---- Give (units): 0 111 to 150 Give (units): 0 151 to 200 Give (units): 2 201 to 250 Give (units): 4 251 to 300 Give (units): 6 301 to 350 Give (units): 8 Greater than 350 Give (units): 10 Call MD if Blood Glucose > : 350 Rx Instructions: Per sliding scale 0-24 units (DME) blood sugar diagnostic Strip See Rx Instructions Not Applicable QID Qty: 10 Rx Instructions: As directed (DME) blood pressure monitor [Blood Pressure Kit] Kit See Rx Instructions .ROUTE .MEDSUPPLY Qty: 1 0RF Rx Instructions: As directed (DME) humidifiers [Cool Mist Humidifier] Misc See Rx Instructions .ROUTE .MEDSUPPLY Qty: 1 0RF Rx Instructions: As directed (DME) Ultra-Light Rollator Misc See Rx Instructions .Route Qty: 1 0RF Rx Instructions: As directed amitriptyline 25 mg tablet 25 mg PO BEDTIME 30 Days Qty: 30 3RF flecainide 100 mg tablet 100 mg PO BID Qty: 180 1RF Discontinued Pradaxa 150 mg capsule 150 mg PO BID 90 Days Qty: 180 1RF Discharge Orders: Discharge Order (Routine); Ordered 02/14/23 Ordered By: Angela Lai Diet: Advance to usual diet Activity on Discharge: No heavy lifting Stand Alone Forms: Patient Portal Discharge page Activity Restrictions/Additional Instructions: Apply an ice pack for short intervals (20 minutes on, followed by at least 20 minutes off). Do not apply heat. Do not use creams, lotions, or topical antibiotics. These can cause infection or allergic reaction. Ok to shower. You have steri strips (small white cloth strips) covering your incision- these will fall off ~1 week. Follow up in office with Dr. Putnam in 1 week. ([phone]) No heavy lifting (>10lbs) or strenuous activity. Call Your Doctor If: -Your temperature exceeds 101.5? F -You experience excessive pain or swelling -You have an unexpected reaction to medication -You have excessive bleeding -You experience continued vomiting/nausea -Your incision begins to separate -Your incision shows signs of infection such as increased redness, swelling, excessive pain, drainage (light blood or clear fluid is normal) or heat Care Plan Goals: Return to baseline health and resume normal activities following recovery period. Health Concerns: SBO incarcerated ventral hernia COPD A fib Pacemaker Plan of Treatment: s/p repair of incarcerated ventral hernia, SBO Transfer to STR. F/u in office in 1 week. Assessment: Doing well post op.
--- NOTE | 2023-02-10 15:04 | MHC.CM.PN ---
family would like pt to go to [facility] [place] [facility] where she has recently been referrals made
[2023-02-10 15:16] VITALS: BP 138/63; PULSE 80; RESP 20; TEMP 36; O2SAT 98
[2023-02-10 16:22] LABS: Glucose, Whole Blood 119 mg/dL (60-115)
[2023-02-10] MEDS: Latanoprost 0.005 % Ophth Sol 2.5 ML DROPS 1 DROP EYE-BOTH (19:52)
[2023-02-10] MEDS: Docusate Sodium 100 MG CAPSULE PO (19:52)
[2023-02-10] MEDS: Amitriptyline HCl 25 MG TABLET PO (19:53)
[2023-02-10 20:00] VITALS: BP 136/61; PULSE 80; RESP 17; TEMP 36.4; O2SAT 96
[2023-02-10] MEDS: oxyCODONE HCl Immed Release 5 MG TABLET PO (21:06)
[2023-02-10 21:26] LABS: Glucose, Whole Blood 148 mg/dL (60-115)
[2023-02-11] MEDS: Lactated Ringers 1,000 ML 100 ML IVCONT ×2 (02:19→13:53)
[2023-02-11 03:17] VITALS: BP 150/66; PULSE 80; RESP 18; TEMP 36; O2SAT 98
[2023-02-11] MEDS: Omeprazole 20 MG CAPSULE.DR PO (05:45)
[2023-02-11] MEDS: oxyCODONE HCl Immed Release 5 MG TABLET PO ×2 (05:46→14:52)
[2023-02-11 07:17] VITALS: BP 144/70; PULSE 86; RESP 18; TEMP 36; O2SAT 100
[2023-02-11 07:27] LABS: Glucose, Whole Blood 135 mg/dL (60-115)
[2023-02-11] MEDS: Flecainide Acetate 50 MG TABLET 100 MG PO ×2 (08:49→21:57)
[2023-02-11] MEDS: atenoloL 50 MG TABLET PO (08:49)
[2023-02-11] MEDS: Losartan Potassium 50 MG TABLET 100 MG PO (08:49)
[2023-02-11] MEDS: Gabapentin 300 MG CAPSULE PO ×2 (08:49→21:57)
[2023-02-11] MEDS: polyethylene glycoL 3350 17 GM POWD.PACK PO (08:49)
[2023-02-11] MEDS: Docusate Sodium 100 MG CAPSULE PO ×2 (08:49→21:57)
[2023-02-11] MEDS: Isosorbide Mononitrate 30 MG TAB.ER.24H PO (08:49)
[2023-02-11] MEDS: Nystatin Powder 15 GM BOTTLE 1 APPL TOPICAL ×2 (08:50→21:54)
--- NOTE | 2023-02-11 09:02 | HO.PM.IMPN ---
Subjective Subjective Date of Service: 02/11/23 Interval History: No new issues, doing well, blood sugars ok Physical Exam Vital Signs: Vital Signs: Last Vital Signs Temp 96.8 F 02/11/23 07:17 Pulse 86 02/11/23 07:17 Resp 18 02/11/23 07:17 BP 144/70 H 02/11/23 07:17 Pulse Ox 100 02/11/23 07:17 O2 Del Method Nasal Cannula 02/11/23 07:17 O2 Flow Rate 2 02/11/23 07:17 BMI result Body Mass Index 44.9 Const: Other: Gen: in no acute distress HEENT: sclera anicteric, moist mucus membranes Neck: supple Lungs: clear to auscultation bilaterally Heart: regular rate and rhythm, no murmurs Abd: soft, non-tender, non-distended Ext: no edema Skin: shallow ulcer right lower leg medially, chronic venous stasis dermatitis Neuro: alert and oriented x3, no focal findings Psych: appropriate affect Objective Data Active Medications Albuterol Sulfate (Albuterol Sulfate 90 Mcg 8 Gm Inhaler) 2 puff INHALE Q6H PRN PRN Reason: bronchospasm Albuterol/Ipratropium (Albuterol/Iprat 2.5/0.5mg 3 Ml Ampul.Neb) 3 ml INHALE RQ4H PRN PRN Reason: Shortness of Breath/Wheezing Last Admin: 02/10/23 13:26 Dose: 3 ml Documented By: SAM Amitriptyline HCl (Amitriptyline Hcl 25 Mg Tablet) 25 mg PO BEDTIME [facility] Last Admin: 02/10/23 19:53 Dose: 25 mg Documented By: BREEZY Atenolol (Atenolol 50 Mg Tablet) 50 mg PO DAILY [facility]; Protocol Last Admin: 02/11/23 08:49 Dose: 50 mg Documented By: MARIN Dextrose (Dextrose 50 % 25 Gm/50 Ml Syringe) 25 gm IVPUSH Q15M PRN; Protocol PRN Reason: per Hypoglycemia Standing Ord. Docusate Sodium (Docusate Sodium 100 Mg Capsule) 100 mg PO BID [facility] Last Admin: 02/11/23 08:49 Dose: 100 mg Documented By: MARIN Flecainide Acetate (Flecainide Acetate 50 Mg Tablet) 100 mg PO BID [facility] Last Admin: 02/11/23 08:49 Dose: 100 mg Documented By: MARIN Gabapentin (Gabapentin 300 Mg Capsule) 300 mg PO BID [facility] Last Admin: 02/11/23 08:49 Dose: 300 mg Documented By: MARIN Glucose (Glucose Gel 15 Gm Gel..Gram.) 15 gm PO Q15M PRN; Protocol PRN Reason: per Hypoglycemia Standing Ord. Lactated Ringer's (Lr) 1,000 mls @ 100 mls/hr IVCONT .Q10H [facility] Last Admin: 02/11/23 02:19 Dose: 100 mls/hr Documented By: BREEZY Insulin Human Lispro (Insulin Lispro 100 Unit/Ml 3 Ml Vial) 0 unit SUBCUT QIDACHS [facility]; Protocol Last Admin: 02/11/23 07:34 Dose: Not Given Documented By: MARIN Non-Admin Reason: No Insulin Coverage Isosorbide Mononitrate (Isosorbide Mononitrate 30 Mg Tab.Er.24h) 30 mg PO DAILY [facility]; Protocol Last Admin: 02/11/23 08:49 Dose: 30 mg Documented By: MARIN Latanoprost (Latanoprost 0.005 % Ophth Cristina 2.5 Ml Drops) 1 drop EYE-BOTH BEDTIME [facility] Last Admin: 02/10/23 19:52 Dose: 1 drop Documented By: BREEZY Lidocaine (Lidocaine 4 % Patch Adh..Patch) 1 patch TRANSDERMA DAILY PRN PRN Reason: pain Losartan Potassium (Losartan Potassium 50 Mg Tablet) 100 mg PO DAILY [facility]; Protocol Last Admin: 02/11/23 08:49 Dose: 100 mg Documented By: MARIN Morphine Sulfate (Morphine Sulfate 4 Mg/Ml Cartridge) 4 mg IVPUSH Q4H PRN; Protocol PRN Reason: Pain, Severe (Pain Scale 7-10) Last Admin: 02/10/23 05:11 Dose: 4 mg Documented By: MARIANNE Nystatin (Nystatin Powder 15 Gm Bottle) 1 appl TOPICAL BID [facility]; Protocol Last Admin: 02/11/23 08:50 Dose: 1 appl Documented By: MARIN Omeprazole (Omeprazole 20 Mg Capsule.) 20 mg PO DAILY@0630 [facility] Last Admin: 02/11/23 05:45 Dose: 20 mg Documented By: BREEZY Oxycodone HCl (Oxycodone Hcl Immed Release 5 Mg Tablet) 5 mg PO Q4H PRN PRN Reason: Pain, Moderate(Pain Scale 4-6) Last Admin: 02/11/23 05:46 Dose: 5 mg Documented By: BREEZY Oxycodone HCl (Oxycodone Hcl Immed Release 5 Mg Tablet) 10 mg PO Q4H PRN PRN Reason: Pain, Severe (Pain Scale 7-10) Last Admin: 02/08/23 17:54 Dose: 10 mg Documented By: AIDA Polyethylene Glycol (Polyethylene Glycol 3350 17 Gm Powd.Pack) 17 gm PO DAILY [facility] Last Admin: 02/11/23 08:49 Dose: 17 gm Documented By: MARIN Sodium Chloride (0.9 % Sodium Chloride Flush 3 Ml Syringe) 3 ml IVFLUSH QSHIFT [facility] Last Admin: 02/11/23 08:36 Dose: Not Given Documented By: MARIN Non-Admin Reason: IV Running Labs 02/07/23 01:23 02/07/23 01:23 Labs: Laboratory Results - last 24 hr 02/10/23 02/10/23 02/10/23 11:06 16:11 21:16 POC Glucose 137 H 119 H 148 H 02/11/23 07:15 POC Glucose 135 H Microbiology Microbiology Results: Microbiology 02/08/23 Unknown Urine Culture - Final Urine clean catch - Urine anderson top Assessment and Plan (1) Afib: Status: Inactive (2) Coronary artery disease: Status: Inactive Plan Patient is a Lao-speaking 76-year-old female with a PMH significant for COPD, renal mass, insulin-dependent type 2 diabetes with neuropathy, CHF unspecified EF, paroxysmal AFib on flecainide no longer anticoagulated with Pradaxa, AV block with dual chamber pacemaker, HTN, HLD, GERD, CAD, fibromyalgia, bipolar disorder, and balance disorder ambulating with walker at baseline who presented to the emergency room for evaluation of nausea and burning epigastric pain with dysuria. Patient was admitted under General surgery for large 5 cm incarcerated umbilical hernia, or patient underwent hernia repair with mesh on 02/07. Umbilical hernia repair on 02/07 management by surgery, tolerating regular diet with no other complaint Hypomagnesemia, corrected and resolved. Stage II decubitus ulcer Wound nurse consult Patient positioning q2hr and optimize nutrition Insulin-dependent type 2 diabetes, BS are well controlled, continue present meds (SSI + lantus), to resume prior meds upon discharge HTN Continue home meds Paroxysmal atrial fibrillation Pacemaker in place Continue flecainide, atenolol, no longer anticoagulated CHF, unspecified ejection fraction Not in acute exacerbation Continue p.o. diuretics COPD Not in acute exacerbation Continue home inhalers CAD/HLD Continue statin, isosorbide, beta-tara Diabetic polyneuropathy Continue gabapentin confusion/encephalopathy--likely from pain meds, reduce narc and continue to monitor PT is recommending STR discussed with family Time Spent With Patient Time: Total time managing care of this patient today ____ minutes. Quality Stroke Does the patient have a stroke diagnosis?: No VTE Prior VTE?: No VTE Risk Level:: Surgical - low VTE Device Contraindication: N/A - Device Ordered VTE Drug Contraindication: N/A - Med Ordered
--- NOTE | 2023-02-11 09:59 | PM.PNGS ---
Subjective Subjective Date of Service: 02/11/23 Interval history: no events reported as per staff - not eating much, seems confused otherwise denies pain Physical Exam Vital Signs: Vital Signs: Last Vital Signs Temp 96.8 F 02/11/23 07:17 Pulse 86 02/11/23 07:17 Resp 18 02/11/23 07:17 BP 144/70 H 02/11/23 07:17 Pulse Ox 100 02/11/23 07:17 O2 Del Method Nasal Cannula 02/11/23 07:17 O2 Flow Rate 2 02/11/23 07:17 BMI result Body Mass Index 44.9 Const: Other: morbidly obese General: no acute distress Resp: Effort & Inspection: normal respiratory effort Cardio: Rate: regular rate GI: Other: obese, soft, incision clean and dry Objective Data Active Medications Albuterol Sulfate (Albuterol Sulfate 90 Mcg 8 Gm Inhaler) 2 puff INHALE Q6H PRN PRN Reason: bronchospasm Albuterol/Ipratropium (Albuterol/Iprat 2.5/0.5mg 3 Ml Ampul.Neb) 3 ml INHALE RQ4H PRN PRN Reason: Shortness of Breath/Wheezing Last Admin: 02/10/23 13:26 Dose: 3 ml Documented By: SAM Amitriptyline HCl (Amitriptyline Hcl 25 Mg Tablet) 25 mg PO BEDTIME [facility] Last Admin: 02/10/23 19:53 Dose: 25 mg Documented By: BREEZY Atenolol (Atenolol 50 Mg Tablet) 50 mg PO DAILY [facility]; Protocol Last Admin: 02/11/23 08:49 Dose: 50 mg Documented By: MARIN Dextrose (Dextrose 50 % 25 Gm/50 Ml Syringe) 25 gm IVPUSH Q15M PRN; Protocol PRN Reason: per Hypoglycemia Standing Ord. Docusate Sodium (Docusate Sodium 100 Mg Capsule) 100 mg PO BID [facility] Last Admin: 02/11/23 08:49 Dose: 100 mg Documented By: MARIN Flecainide Acetate (Flecainide Acetate 50 Mg Tablet) 100 mg PO BID [facility] Last Admin: 02/11/23 08:49 Dose: 100 mg Documented By: MARIN Gabapentin (Gabapentin 300 Mg Capsule) 300 mg PO BID [facility] Last Admin: 02/11/23 08:49 Dose: 300 mg Documented By: MARIN Glucose (Glucose Gel 15 Gm Gel..Gram.) 15 gm PO Q15M PRN; Protocol PRN Reason: per Hypoglycemia Standing Ord. Lactated Ringer's (Lr) 1,000 mls @ 100 mls/hr IVCONT .Q10H [facility] Last Admin: 02/11/23 09:05 Dose: Not Given Documented By: MARIN Non-Admin Reason: previous bag still runing Insulin Glargine (Insulin Glargine,Hum.Rec.Anlog 100 Unit/Ml 10 Ml Vial) 30 unit SUBCUT BEDTIME [facility] Insulin Human Lispro (Insulin Lispro 100 Unit/Ml 3 Ml Vial) 0 unit SUBCUT QIDACHS [facility]; Protocol Last Admin: 02/11/23 07:34 Dose: Not Given Documented By: MARIN Non-Admin Reason: No Insulin Coverage Isosorbide Mononitrate (Isosorbide Mononitrate 30 Mg Tab.Er.24h) 30 mg PO DAILY [facility]; Protocol Last Admin: 02/11/23 08:49 Dose: 30 mg Documented By: MARIN Latanoprost (Latanoprost 0.005 % Ophth Cristina 2.5 Ml Drops) 1 drop EYE-BOTH BEDTIME [facility] Last Admin: 02/10/23 19:52 Dose: 1 drop Documented By: BREEZY Lidocaine (Lidocaine 4 % Patch Adh..Patch) 1 patch TRANSDERMA DAILY PRN PRN Reason: pain Losartan Potassium (Losartan Potassium 50 Mg Tablet) 100 mg PO DAILY [facility]; Protocol Last Admin: 02/11/23 08:49 Dose: 100 mg Documented By: MARIN Morphine Sulfate (Morphine Sulfate 4 Mg/Ml Cartridge) 4 mg IVPUSH Q4H PRN; Protocol PRN Reason: Pain, Severe (Pain Scale 7-10) Last Admin: 02/10/23 05:11 Dose: 4 mg Documented By: MARIANNE Nystatin (Nystatin Powder 15 Gm Bottle) 1 appl TOPICAL BID [facility]; Protocol Last Admin: 02/11/23 08:50 Dose: 1 appl Documented By: MARIN Omeprazole (Omeprazole 20 Mg Capsule.) 20 mg PO DAILY@0630 [facility] Last Admin: 02/11/23 05:45 Dose: 20 mg Documented By: BREEZY Oxycodone HCl (Oxycodone Hcl Immed Release 5 Mg Tablet) 5 mg PO Q4H PRN PRN Reason: Pain, Moderate(Pain Scale 4-6) Last Admin: 02/11/23 05:46 Dose: 5 mg Documented By: BREEZY Oxycodone HCl (Oxycodone Hcl Immed Release 5 Mg Tablet) 10 mg PO Q4H PRN PRN Reason: Pain, Severe (Pain Scale 7-10) Last Admin: 02/08/23 17:54 Dose: 10 mg Documented By: AIDA Polyethylene Glycol (Polyethylene Glycol 3350 17 Gm Powd.Pack) 17 gm PO DAILY [facility] Last Admin: 02/11/23 08:49 Dose: 17 gm Documented By: MARIN Sodium Chloride (0.9 % Sodium Chloride Flush 3 Ml Syringe) [address] [facility] Last Admin: 02/11/23 08:36 Dose: Not Given Documented By: MARIN Non-Admin Reason: IV Running Labs 02/07/23 01:23 02/07/23 01:23 Labs: Laboratory Results - last 24 hr 02/10/23 02/10/23 02/10/23 11:06 16:11 21:16 POC Glucose 137 H 119 H 148 H 02/11/23 07:15 POC Glucose 135 H Microbiology Microbiology Results: Microbiology 02/08/23 Unknown Urine Culture - Final Urine clean catch - Urine anderson top Procedures Date of Service Date of Service: 02/11/23 Progress Note: A&P Assessment and plan (1) Incarcerated ventral hernia: Status: Acute Assessment and Plan: s/p repair of ventral hernia no acute issues but pt confused Rehab recommended by PT awaiting placement - pt does not appear ready to be at home OOB Hospitalist following push PO intake Time Spent With Patient Time: Total time managing care of this patient today ____ minutes. Quality Stroke Does the patient have a stroke diagnosis?: No VTE Prior VTE?: No VTE Risk Level:: Surgical - low VTE Device Contraindication: N/A - Device Ordered VTE Drug Contraindication: N/A - Med Ordered
[2023-02-11 11:40] LABS: Glucose, Whole Blood 149 mg/dL (60-115)
[2023-02-11] MEDS: Albuterol/Iprat 2.5/0.5MG 3 ML AMPUL.NEB INHALE (13:05)
[2023-02-11 13:06] VITALS: PULSE 86; RESP 18; O2SAT 98
[2023-02-11 15:20] VITALS: BP 154/63; PULSE 80; RESP 18; TEMP 36.4; O2SAT 97
[2023-02-11 16:20] LABS: Glucose, Whole Blood 154 mg/dL (60-115)
[2023-02-11] MEDS: Insulin Lispro 100 UNIT/ML 3 ML VIAL SUBCUT (16:28)
[2023-02-11 20:00] VITALS: BP 149/69; PULSE 80; RESP 18; TEMP 36.3; O2SAT 93
[2023-02-11 20:49] LABS: Glucose, Whole Blood 141 mg/dL (60-115)
[2023-02-11] MEDS: Insulin Glargine,Hum.rec.anlog 100 UNIT/ML 10 ML VIAL 20 UNIT SUBCUT (21:49)
[2023-02-11] MEDS: Amitriptyline HCl 25 MG TABLET PO (21:49)
[2023-02-11] MEDS: Latanoprost 0.005 % Ophth Sol 2.5 ML DROPS 1 DROP EYE-BOTH (21:51)
[2023-02-11 23:39] VITALS: BP 150/70; PULSE 79; RESP 17; TEMP 36.5; O2SAT 97
[2023-02-12] MEDS: Morphine Sulfate 4 MG/ML CARTRIDGE IVPUSH (01:24)
[2023-02-12] MEDS: 0.9 % Sodium Chloride Flush 3 ML SYRINGE IVFLUSH ×3 (01:24→15:51)
[2023-02-12] MEDS: Omeprazole 20 MG CAPSULE.DR PO (06:38)
[2023-02-12 07:33] LABS: Glucose, Whole Blood 141 mg/dL (60-115)
[2023-02-12 07:45] VITALS: BP 178/84; PULSE 81; RESP 18; TEMP 36; O2SAT 96
--- NOTE | 2023-02-12 08:31 | HO.PM.IMPN ---
Subjective Subjective Date of Service: 02/13/23 Interval History: Seems confused, Physical Exam Vital Signs: Vital Signs: Last Vital Signs Temp 96.8 F 02/12/23 07:45 Pulse 81 02/12/23 07:45 Resp 18 02/12/23 07:45 BP 178/84 H 02/12/23 07:45 Pulse Ox 96 02/12/23 07:45 O2 Del Method Nasal Cannula 02/12/23 07:45 O2 Flow Rate 1 02/12/23 07:45 BMI result Body Mass Index 44.9 Const: Other: morbidly obese Objective Data Active Medications Albuterol Sulfate (Albuterol Sulfate 90 Mcg 8 Gm Inhaler) 2 puff INHALE Q6H PRN PRN Reason: bronchospasm Albuterol/Ipratropium (Albuterol/Iprat 2.5/0.5mg 3 Ml Ampul.Neb) 3 ml INHALE RQ4H PRN PRN Reason: Shortness of Breath/Wheezing Last Admin: 02/11/23 13:05 Dose: 3 ml Documented By: GUZMAN Amitriptyline HCl (Amitriptyline Hcl 25 Mg Tablet) 25 mg PO BEDTIME [facility] Last Admin: 02/11/23 21:49 Dose: 25 mg Documented By: JEANNA Atenolol (Atenolol 50 Mg Tablet) 50 mg PO DAILY [facility]; Protocol Last Admin: 02/11/23 08:49 Dose: 50 mg Documented By: MARIN Dextrose (Dextrose 50 % 25 Gm/50 Ml Syringe) 25 gm IVPUSH Q15M PRN; Protocol PRN Reason: per Hypoglycemia Standing Ord. Docusate Sodium (Docusate Sodium 100 Mg Capsule) 100 mg PO BID [facility] Last Admin: 02/11/23 21:57 Dose: 100 mg Documented By: JEANNA Flecainide Acetate (Flecainide Acetate 50 Mg Tablet) 100 mg PO BID [facility] Last Admin: 02/11/23 21:57 Dose: 100 mg Documented By: JEANNA Gabapentin (Gabapentin 300 Mg Capsule) 300 mg PO BID [facility] Last Admin: 02/11/23 21:57 Dose: 300 mg Documented By: JEANNA Glucose (Glucose Gel 15 Gm Gel..Gram.) 15 gm PO Q15M PRN; Protocol PRN Reason: per Hypoglycemia Standing Ord. Insulin Glargine (Insulin Glargine,Hum.Rec.Anlog 100 Unit/Ml 10 Ml Vial) 20 unit SUBCUT BEDTIME [facility] Last Admin: 02/11/23 21:49 Dose: 20 unit Documented By: JEANNA Insulin Human Lispro (Insulin Lispro 100 Unit/Ml 3 Ml Vial) 0 unit SUBCUT QIDACHS [facility]; Protocol Last Admin: 02/12/23 07:21 Dose: Not Given Documented By: NELLY Non-Admin Reason: No Insulin Coverage Isosorbide Mononitrate (Isosorbide Mononitrate 30 Mg Tab.Er.24h) 30 mg PO DAILY [facility]; Protocol Last Admin: 02/11/23 08:49 Dose: 30 mg Documented By: MARIN Latanoprost (Latanoprost 0.005 % Ophth Cristina 2.5 Ml Drops) 1 drop EYE-BOTH BEDTIME [facility] Last Admin: 02/11/23 21:51 Dose: 1 drop Documented By: JEANNA Lidocaine (Lidocaine 4 % Patch Adh..Patch) 1 patch TRANSDERMA DAILY PRN PRN Reason: pain Losartan Potassium (Losartan Potassium 50 Mg Tablet) 100 mg PO DAILY [facility]; Protocol Last Admin: 02/11/23 08:49 Dose: 100 mg Documented By: MARIN Morphine Sulfate (Morphine Sulfate 4 Mg/Ml Cartridge) 4 mg IVPUSH Q4H PRN; Protocol PRN Reason: Pain, Severe (Pain Scale 7-10) Last Admin: 02/12/23 01:24 Dose: 4 mg Documented By: JEANNA Nystatin (Nystatin Powder 15 Gm Bottle) 1 appl TOPICAL BID [facility]; Protocol Last Admin: 02/11/23 21:54 Dose: 1 appl Documented By: JEANNA Omeprazole (Omeprazole 20 Mg Capsule.Dr) 20 mg PO DAILY@0630 [facility] Last Admin: 02/12/23 06:38 Dose: 20 mg Documented By: JEANNA Oxycodone HCl (Oxycodone Hcl Immed Release 5 Mg Tablet) 5 mg PO Q4H PRN PRN Reason: Pain, Severe (Pain Scale 7-10) Polyethylene Glycol (Polyethylene Glycol 3350 17 Gm Powd.Pack) 17 gm PO DAILY [facility] Last Admin: 02/11/23 08:49 Dose: 17 gm Documented By: HO.PARROWA Sodium Chloride (0.9 % Sodium Chloride Flush 3 Ml Syringe) 3 ml IVFLUSH QSHIFT [facility] Last Admin: 02/12/23 01:24 Dose: 3 ml Documented By: JEANNA Labs 02/07/23 01:23 02/07/23 01:23 Labs: Laboratory Results - last 24 hr 02/11/23 02/11/23 02/11/23 11:33 16:09 20:42 POC Glucose 149 H 154 H 141 H 02/12/23 07:10 POC Glucose 141 H Assessment and Plan (1) Afib: Status: Inactive (2) Coronary artery disease: Status: Inactive Plan Patient is a Bulgarian-speaking 76-year-old female with a PMH significant for COPD, renal mass, insulin-dependent type 2 diabetes with neuropathy, CHF unspecified EF, paroxysmal AFib on flecainide no longer anticoagulated with Pradaxa, AV block with dual chamber pacemaker, HTN, HLD, GERD, CAD, fibromyalgia, bipolar disorder, and balance disorder ambulating with walker at baseline who presented to the emergency room for evaluation of nausea and burning epigastric pain with dysuria. Patient was admitted under General surgery for large 5 cm incarcerated umbilical hernia, or patient underwent hernia repair with mesh on 02/07. Umbilical hernia repair on 02/07 management by surgery, tolerating regular diet with no other complaint Hypomagnesemia, corrected and resolved. Confusion, likely multifactorial post op setting, narc and underlying cognitive desorder Stage II decubitus ulcer Wound nurse consult Patient positioning q2hr and optimize nutrition Insulin-dependent type 2 diabetes, BS are well controlled, continue present meds (SSI + lantus), to resume prior meds upon discharge HTN Continue home meds Paroxysmal atrial fibrillation Pacemaker in place Continue flecainide, atenolol, no longer anticoagulated CHF, unspecified ejection fraction Not in acute exacerbation Continue p.o. diuretics COPD Not in acute exacerbation Continue home inhalers CAD/HLD Continue statin, isosorbide, beta-tara Diabetic polyneuropathy Continue gabapentin confusion/encephalopathy--likely from pain meds, reduce narc and continue to monitor, check UA, minimal narc use, frequent reorientation PT is recommending STR discussed with family Time Spent With Patient Time: Total time managing care of this patient today ____ minutes. Quality Stroke Does the patient have a stroke diagnosis?: No VTE Prior VTE?: No VTE Risk Level:: Surgical - low VTE Device Contraindication: N/A - Device Ordered VTE Drug Contraindication: N/A - Med Ordered
[2023-02-12] MEDS: polyethylene glycoL 3350 17 GM POWD.PACK PO (08:35)
[2023-02-12] MEDS: Gabapentin 300 MG CAPSULE PO ×2 (08:36→21:27)
[2023-02-12] MEDS: Isosorbide Mononitrate 30 MG TAB.ER.24H PO (08:36)
[2023-02-12] MEDS: atenoloL 50 MG TABLET PO (08:37)
[2023-02-12] MEDS: Flecainide Acetate 50 MG TABLET 100 MG PO ×2 (08:37→21:27)
[2023-02-12] MEDS: Losartan Potassium 50 MG TABLET 100 MG PO (08:38)
[2023-02-12] MEDS: Docusate Sodium 100 MG CAPSULE PO (08:38)
[2023-02-12] MEDS: Nystatin Powder 15 GM BOTTLE 1 APPL TOPICAL ×2 (08:45→21:27)
[2023-02-12] MEDS: Albuterol/Iprat 2.5/0.5MG 3 ML AMPUL.NEB INHALE (09:09)
[2023-02-12 09:10] VITALS: PULSE 81; RESP 18; O2SAT 96
--- NOTE | 2023-02-12 09:43 | P.PNGS_ITS ---
Subjective Subjective Date of Service: 02/15/23 Interval history: no events reported as per staff - PO intake marginal pt often confused does not seem to complain of pain Physical Exam 2 Vital Signs: Vital Signs: Last Vital Signs Temp 96.8 F 02/12/23 07:45 Pulse 81 02/12/23 09:10 Resp 18 02/12/23 09:10 BP 178/84 H 02/12/23 07:45 Pulse Ox 96 02/12/23 07:45 O2 Del Method Nasal Cannula 02/12/23 07:45 O2 Flow Rate 1 02/12/23 07:45 BMI result Body Mass Index 44.9 Const: General: comfortable and no acute distress Resp: Other: has wheezing bilaterally Effort & Inspection: normal respiratory effort Cardio: Rate: regular rate GI: Other: obese, soft, incision healing well, not infected Objective Data Active Medications Albuterol Sulfate (Albuterol Sulfate 90 Mcg 8 Gm Inhaler) 2 puff INHALE Q6H PRN PRN Reason: bronchospasm Albuterol/Ipratropium (Albuterol/Iprat 2.5/0.5mg 3 Ml Ampul.Neb) 3 ml INHALE RQ4H PRN PRN Reason: Shortness of Breath/Wheezing Last Admin: 02/12/23 09:09 Dose: 3 ml Documented By: GUZMAN Amitriptyline HCl (Amitriptyline Hcl 25 Mg Tablet) 25 mg PO BEDTIME [facility] Last Admin: 02/11/23 21:49 Dose: 25 mg Documented By: JEANNA Atenolol (Atenolol 50 Mg Tablet) 50 mg PO DAILY [facility]; Protocol Last Admin: 02/12/23 08:37 Dose: 50 mg Documented By: NELLY Dextrose (Dextrose 50 % 25 Gm/50 Ml Syringe) 25 gm IVPUSH Q15M PRN; Protocol PRN Reason: per Hypoglycemia Standing Ord. Docusate Sodium (Docusate Sodium 100 Mg Capsule) 100 mg PO BID [facility] Last Admin: 02/12/23 08:38 Dose: 100 mg Documented By: NELLY Flecainide Acetate (Flecainide Acetate 50 Mg Tablet) 100 mg PO BID [facility] Last Admin: 02/12/23 08:37 Dose: 100 mg Documented By: NELLY Gabapentin (Gabapentin 300 Mg Capsule) 300 mg PO BID [facility] Last Admin: 02/12/23 08:36 Dose: 300 mg Documented By: NELLY Glucose (Glucose Gel 15 Gm Gel..Gram.) 15 gm PO Q15M PRN; Protocol PRN Reason: per Hypoglycemia Standing Ord. Insulin Glargine (Insulin Glargine,Hum.Rec.Anlog 100 Unit/Ml 10 Ml Vial) 20 unit SUBCUT BEDTIME [facility] Last Admin: 02/11/23 21:49 Dose: 20 unit Documented By: JEANNA Insulin Human Lispro (Insulin Lispro 100 Unit/Ml 3 Ml Vial) 0 unit SUBCUT QIDACHS [facility]; Protocol Last Admin: 02/12/23 07:21 Dose: Not Given Documented By: NELLY Non-Admin Reason: No Insulin Coverage Isosorbide Mononitrate (Isosorbide Mononitrate 30 Mg Tab.Er.24h) 30 mg PO DAILY [facility]; Protocol Last Admin: 02/12/23 08:36 Dose: 30 mg Documented By: NELLY Latanoprost (Latanoprost 0.005 % Ophth Cristina 2.5 Ml Drops) 1 drop EYE-BOTH BEDTIME [facility] Last Admin: 02/11/23 21:51 Dose: 1 drop Documented By: JEANNA Lidocaine (Lidocaine 4 % Patch Adh..Patch) 1 patch TRANSDERMA DAILY PRN PRN Reason: pain Losartan Potassium (Losartan Potassium 50 Mg Tablet) 100 mg PO DAILY [facility]; Protocol Last Admin: 02/12/23 08:38 Dose: 100 mg Documented By: NELLY Morphine Sulfate (Morphine Sulfate 4 Mg/Ml Cartridge) 4 mg IVPUSH Q4H PRN; Protocol PRN Reason: Pain, Severe (Pain Scale 7-10) Last Admin: 02/12/23 01:24 Dose: 4 mg Documented By: JEANNA Nystatin (Nystatin Powder 15 Gm Bottle) 1 appl TOPICAL BID [facility]; Protocol Last Admin: 02/12/23 08:45 Dose: 1 appl Documented By: NELLY Omeprazole (Omeprazole 20 Mg Capsule.Dr) 20 mg PO DAILY@0630 [facility] Last Admin: 02/12/23 06:38 Dose: 20 mg Documented By: JEANNA Oxycodone HCl (Oxycodone Hcl Immed Release 5 Mg Tablet) 5 mg PO Q4H PRN PRN Reason: Pain, Severe (Pain Scale 7-10) Polyethylene Glycol (Polyethylene Glycol 3350 17 Gm Powd.Pack) 17 gm PO DAILY [facility] Last Admin: 02/12/23 08:35 Dose: 17 gm Documented By: NELLY Sodium Chloride (0.9 % Sodium Chloride Flush 3 Ml Syringe) 3 ml IVFLUSH QSHIFT [facility] Last Admin: 02/12/23 08:35 Dose: 3 ml Documented By: NELLY Labs 02/07/23 01:23 02/07/23 01:23 Labs: Laboratory Results - last 24 hr 02/11/23 02/11/23 02/11/23 11:33 16:09 20:42 POC Glucose 149 H 154 H 141 H 02/12/23 07:10 POC Glucose 141 H Procedures Date of Service Date of Service: 02/15/23 Progress Note: A&P Assessment and plan (1) Incarcerated ventral hernia: Status: Acute Assessment and Plan: S/P ventral hernia repair appears to be doing well postop dw bilingual case manager re: placement - Rehab has refused to take her in; daughter apparently wants her home talked to pt's sister - she has concerns about pt going home to kids, thinks she should be in a NH uncertain about baseline level of health/confusion will keep in hospital for today otherwise no issues from surgical standpoint Time Spent With Patient Time: Total time managing care of this patient today ____ minutes. Quality Stroke Does the patient have a stroke diagnosis?: No VTE Prior VTE?: No VTE Risk Level:: Surgical - low VTE Device Contraindication: N/A - Device Ordered VTE Drug Contraindication: N/A - Med Ordered
[2023-02-12 11:47] LABS: Glucose, Whole Blood 152 mg/dL (60-115)
[2023-02-12 16:00] VITALS: BP 174/44; PULSE 80; RESP 24; TEMP 36.4; O2SAT 97
[2023-02-12 16:34] LABS: Glucose, Whole Blood 149 mg/dL (60-115)
[2023-02-12 16:40] VITALS: BP 144/67; PULSE 60; RESP 16; TEMP 35.9; O2SAT 96
[2023-02-12 20:00] VITALS: BP 176/76; PULSE 80; RESP 18; TEMP 36.3; O2SAT 98
[2023-02-12 21:06] LABS: Glucose, Whole Blood 136 mg/dL (60-115)
[2023-02-12] MEDS: Insulin Glargine,Hum.rec.anlog 100 UNIT/ML 10 ML VIAL 20 UNIT SUBCUT (21:26)
[2023-02-12] MEDS: Amitriptyline HCl 25 MG TABLET PO (21:27)
[2023-02-12] MEDS: Latanoprost 0.005 % Ophth Sol 2.5 ML DROPS 1 DROP EYE-BOTH (21:27)
[2023-02-12] MEDS: oxyCODONE HCl Immed Release 5 MG TABLET PO (21:39)
[2023-02-13] MEDS: 0.9 % Sodium Chloride Flush 3 ML SYRINGE IVFLUSH ×4 (00:13→23:38)
[2023-02-13 02:54] VITALS: BP 157/71; PULSE 80; RESP 18; TEMP 36; O2SAT 97
[2023-02-13] MEDS: Omeprazole 20 MG CAPSULE.DR PO (05:58)
[2023-02-13 07:07] VITALS: BP 140/64; PULSE 80; RESP 18; TEMP 37.2; O2SAT 98
[2023-02-13 07:22] LABS: Glucose, Whole Blood 137 mg/dL (60-115)
--- NOTE | 2023-02-13 09:07 | PM.PNGS ---
Subjective Subjective Date of Service: 02/13/23 Interval history: Patient much more awake and lucid this morning. Tolerating her diet. No abdominal complaints or incisional issues. Physical Exam Vital Signs: Vital Signs: Last Vital Signs Temp 98.9 F 02/13/23 07:07 Pulse 80 02/13/23 07:07 Resp 18 02/13/23 07:07 BP 140/64 H 02/13/23 07:07 Pulse Ox 98 02/13/23 07:07 O2 Del Method Nasal Cannula 02/13/23 07:07 O2 Flow Rate 1 02/13/23 07:07 BMI result Body Mass Index 44.9 GI: Other: Abdomen soft. Wound clean dry and intact , healing uneventfully. Objective Data Active Medications Albuterol Sulfate (Albuterol Sulfate 90 Mcg 8 Gm Inhaler) 2 puff INHALE Q6H PRN PRN Reason: bronchospasm Albuterol/Ipratropium (Albuterol/Iprat 2.5/0.5mg 3 Ml Ampul.Neb) 3 ml INHALE RQ4H PRN PRN Reason: Shortness of Breath/Wheezing Last Admin: 02/12/23 09:09 Dose: 3 ml Documented By: GUZMAN Amitriptyline HCl (Amitriptyline Hcl 25 Mg Tablet) 25 mg PO BEDTIME [facility] Last Admin: 02/12/23 21:27 Dose: 25 mg Documented By: JEWEL Atenolol (Atenolol 50 Mg Tablet) 50 mg PO DAILY [facility]; Protocol Last Admin: 02/12/23 08:37 Dose: 50 mg Documented By: NELLY Dextrose (Dextrose 50 % 25 Gm/50 Ml Syringe) 25 gm IVPUSH Q15M PRN; Protocol PRN Reason: per Hypoglycemia Standing Ord. Docusate Sodium (Docusate Sodium 100 Mg Capsule) 100 mg PO BID [facility] Last Admin: 02/12/23 21:43 Dose: Not Given Documented By: JEWEL Non-Admin Reason: Patient Condition Contraindication Flecainide Acetate (Flecainide Acetate 50 Mg Tablet) 100 mg PO BID [facility] Last Admin: 02/12/23 21:27 Dose: 100 mg Documented By: JEWEL Gabapentin (Gabapentin 300 Mg Capsule) 300 mg PO BID [facility] Last Admin: 02/12/23 21:27 Dose: 300 mg Documented By: JEWEL Glucose (Glucose Gel 15 Gm Gel..Gram.) 15 gm PO Q15M PRN; Protocol PRN Reason: per Hypoglycemia Standing Ord. Insulin Glargine (Insulin Glargine,Hum.Rec.Anlog 100 Unit/Ml 10 Ml Vial) 20 unit SUBCUT BEDTIME [facility] Last Admin: 02/12/23 21:26 Dose: 20 unit Documented By: JEWEL Insulin Human Lispro (Insulin Lispro 100 Unit/Ml 3 Ml Vial) 0 unit SUBCUT QIDACHS [facility]; Protocol Last Admin: 02/13/23 07:45 Dose: Not Given Documented By: NI Non-Admin Reason: No Insulin Coverage Isosorbide Mononitrate (Isosorbide Mononitrate 30 Mg Tab.Er.24h) 30 mg PO DAILY [facility]; Protocol Last Admin: 02/12/23 08:36 Dose: 30 mg Documented By: NELLY Latanoprost (Latanoprost 0.005 % Ophth Cristina 2.5 Ml Drops) 1 drop EYE-BOTH BEDTIME [facility] Last Admin: 02/12/23 21:27 Dose: 1 drop Documented By: JEWEL Lidocaine (Lidocaine 4 % Patch Adh..Patch) 1 patch TRANSDERMA DAILY PRN PRN Reason: pain Losartan Potassium (Losartan Potassium 50 Mg Tablet) 100 mg PO DAILY [facility]; Protocol Last Admin: 02/12/23 08:38 Dose: 100 mg Documented By: NELLY Nystatin (Nystatin Powder 15 Gm Bottle) 1 appl TOPICAL BID [facility]; Protocol Last Admin: 02/12/23 21:27 Dose: 1 appl Documented By: JEWEL Omeprazole (Omeprazole 20 Mg Capsule.Dr) 20 mg PO DAILY@0630 [facility] Last Admin: 02/13/23 05:58 Dose: 20 mg Documented By: SARINA Oxycodone HCl (Oxycodone Hcl Immed Release 5 Mg Tablet) 5 mg PO Q4H PRN PRN Reason: Pain, Severe (Pain Scale 7-10) Last Admin: 02/12/23 21:39 Dose: 5 mg Documented By: JEWEL Polyethylene Glycol (Polyethylene Glycol 3350 17 Gm Powd.Pack) 17 gm PO DAILY [facility] Last Admin: 02/12/23 08:35 Dose: 17 gm Documented By: NELLY Sodium Chloride (0.9 % Sodium Chloride Flush 3 Ml Syringe) 3 ml IVFLUSH QSHIFT [facility] Last Admin: 02/13/23 00:13 Dose: 3 ml Documented By: SARINA Labs 02/07/23 01:23 02/07/23 01:23 Labs: Laboratory Results - last 24 hr 02/12/23 02/12/23 02/12/23 11:20 16:30 20:56 POC Glucose 152 H 149 H 136 H 02/13/23 07:12 POC Glucose 137 H Procedures Date of Service Date of Service: 02/13/23 Progress Note: A&P Assessment and plan (1) Incarcerated ventral hernia: Status: Acute (2) SBO (small bowel obstruction): Status: Acute Plan Stable from surgical perspective. Awaiting either placement or discharge home with family care. Time Spent With Patient Time: Total time managing care of this patient today ____ minutes. Quality Stroke Does the patient have a stroke diagnosis?: No VTE Prior VTE?: No VTE Risk Level:: Surgical - low VTE Device Contraindication: N/A - Device Ordered VTE Drug Contraindication: N/A - Med Ordered
[2023-02-13] MEDS: Isosorbide Mononitrate 30 MG TAB.ER.24H PO (09:18)
[2023-02-13] MEDS: Flecainide Acetate 50 MG TABLET 100 MG PO ×2 (09:18→20:24)
[2023-02-13] MEDS: polyethylene glycoL 3350 17 GM POWD.PACK PO (09:18)
[2023-02-13] MEDS: oxyCODONE HCl Immed Release 5 MG TABLET PO ×3 (09:18→21:56)
[2023-02-13] MEDS: Docusate Sodium 100 MG CAPSULE PO ×2 (09:18→20:25)
[2023-02-13] MEDS: Gabapentin 300 MG CAPSULE PO ×2 (09:18→20:25)
[2023-02-13] MEDS: Losartan Potassium 50 MG TABLET 100 MG PO (09:19)
[2023-02-13] MEDS: Nystatin Powder 15 GM BOTTLE 1 APPL TOPICAL ×2 (09:19→20:26)
[2023-02-13] MEDS: atenoloL 50 MG TABLET PO (09:19)
--- NOTE | 2023-02-13 11:10 | HO.PM.IMPN ---
Subjective Subjective Date of Service: 02/13/23 Interval History: More awake and alert today, some level confusion ? baseline Physical Exam Vital Signs: Vital Signs: Last Vital Signs Temp 98.9 F 02/13/23 07:07 Pulse 80 02/13/23 07:07 Resp 18 02/13/23 07:07 BP 140/64 H 02/13/23 07:07 Pulse Ox 98 02/13/23 07:07 O2 Del Method Nasal Cannula 02/13/23 07:07 O2 Flow Rate 1 02/13/23 07:07 BMI result Body Mass Index 44.9 Const: Other: morbidly obese, CVRRR lung diminished but clear Abd sof, ob[place], dressing intact ext no edam neuro: NF Objective Data Active Medications Albuterol Sulfate (Albuterol Sulfate 90 Mcg 8 Gm Inhaler) 2 puff INHALE Q6H PRN PRN Reason: bronchospasm Albuterol/Ipratropium (Albuterol/Iprat 2.5/0.5mg 3 Ml Ampul.Neb) 3 ml INHALE RQ4H PRN PRN Reason: Shortness of Breath/Wheezing Last Admin: 02/12/23 09:09 Dose: 3 ml Documented By: GUZMAN Amitriptyline HCl (Amitriptyline Hcl 25 Mg Tablet) 25 mg PO BEDTIME [facility] Last Admin: 02/12/23 21:27 Dose: 25 mg Documented By: JEWEL Atenolol (Atenolol 50 Mg Tablet) 50 mg PO DAILY [facility]; Protocol Last Admin: 02/13/23 09:19 Dose: 50 mg Documented By: NI Dextrose (Dextrose 50 % 25 Gm/50 Ml Syringe) 25 gm IVPUSH Q15M PRN; Protocol PRN Reason: per Hypoglycemia Standing Ord. Docusate Sodium (Docusate Sodium 100 Mg Capsule) 100 mg PO BID [facility] Last Admin: 02/13/23 09:18 Dose: 100 mg Documented By: NI Flecainide Acetate (Flecainide Acetate 50 Mg Tablet) 100 mg PO BID [facility] Last Admin: 02/13/23 09:18 Dose: 100 mg Documented By: NI Gabapentin (Gabapentin 300 Mg Capsule) 300 mg PO BID [facility] Last Admin: 02/13/23 09:18 Dose: 300 mg Documented By: NI Glucose (Glucose Gel 15 Gm Gel..Gram.) 15 gm PO Q15M PRN; Protocol PRN Reason: per Hypoglycemia Standing Ord. Insulin Glargine (Insulin Glargine,Hum.Rec.Anlog 100 Unit/Ml 10 Ml Vial) 20 unit SUBCUT BEDTIME [facility] Last Admin: 02/12/23 21:26 Dose: 20 unit Documented By: JEWEL Insulin Human Lispro (Insulin Lispro 100 Unit/Ml 3 Ml Vial) 0 unit SUBCUT QIDACHS [facility]; Protocol Last Admin: 02/13/23 07:45 Dose: Not Given Documented By: NI Non-Admin Reason: No Insulin Coverage Isosorbide Mononitrate (Isosorbide Mononitrate 30 Mg Tab.Er.24h) 30 mg PO DAILY [facility]; Protocol Last Admin: 02/13/23 09:18 Dose: 30 mg Documented By: NI Latanoprost (Latanoprost 0.005 % Ophth Cristina 2.5 Ml Drops) 1 drop EYE-BOTH BEDTIME [facility] Last Admin: 02/12/23 21:27 Dose: 1 drop Documented By: JEWEL Lidocaine (Lidocaine 4 % Patch Adh..Patch) 1 patch TRANSDERMA DAILY PRN PRN Reason: pain Losartan Potassium (Losartan Potassium 50 Mg Tablet) 100 mg PO DAILY [facility]; Protocol Last Admin: 02/13/23 09:19 Dose: 100 mg Documented By: NI Nystatin (Nystatin Powder 15 Gm Bottle) 1 appl TOPICAL BID [facility]; Protocol Last Admin: 02/13/23 09:19 Dose: 1 appl Documented By: NI Omeprazole (Omeprazole 20 Mg Capsule.Dr) 20 mg PO DAILY@0630 [facility] Last Admin: 02/13/23 05:58 Dose: 20 mg Documented By: SARINA Oxycodone HCl (Oxycodone Hcl Immed Release 5 Mg Tablet) 5 mg PO Q4H PRN PRN Reason: Pain, Severe (Pain Scale 7-10) Last Admin: 02/13/23 09:18 Dose: 5 mg Documented By: NI Polyethylene Glycol (Polyethylene Glycol 3350 17 Gm Powd.Pack) 17 gm PO DAILY [facility] Last Admin: 02/13/23 09:18 Dose: 17 gm Documented By: NI Sodium Chloride (0.9 % Sodium Chloride Flush 3 Ml Syringe) 3 ml IVFLUSH QSHIFT [facility] Last Admin: 02/13/23 09:19 Dose: 3 ml Documented By: NI Labs 02/07/23 01:23 02/07/23 01:23 Labs: Laboratory Results - last 24 hr 02/12/23 02/12/23 02/12/23 11:20 16:30 20:56 POC Glucose 152 H 149 H 136 H 02/13/23 07:12 POC Glucose 137 H Assessment and Plan (1) Incarcerated ventral hernia: Status: Acute (2) SBO (small bowel obstruction): Status: Acute (3) Hypomagnesemia: Status: Acute Plan Patient is a Mohawk-speaking 76-year-old female with a PMH significant for COPD, renal mass, insulin-dependent type 2 diabetes with neuropathy, CHF unspecified EF, paroxysmal AFib on flecainide no longer anticoagulated with Pradaxa, AV block with dual chamber pacemaker, HTN, HLD, GERD, CAD, fibromyalgia, bipolar disorder, and balance disorder ambulating with walker at baseline who presented to the emergency room for evaluation of nausea and burning epigastric pain with dysuria. Patient was admitted under General surgery for large 5 cm incarcerated umbilical hernia, or patient underwent hernia repair with mesh on 02/07. Umbilical hernia repair on 02/07 management by surgery, tolerating regular diet with no other complaint Hypomagnesemia, corrected and resolved. Confusion, likely multifactorial post op setting, narc and underlying cognitive desorder--better today Stage II decubitus ulcer Wound nurse consult Patient positioning q2hr and optimize nutrition Insulin-dependent type 2 diabetes, BS are well controlled, continue present meds (SSI + lantus), to resume prior meds upon discharge HTN Continue home meds Paroxysmal atrial fibrillation Pacemaker in place Continue flecainide, atenolol, no longer anticoagulated CHF, unspecified ejection fraction Not in acute exacerbation Continue p.o. diuretics COPD Not in acute exacerbation Continue home inhalers CAD/HLD Continue statin, isosorbide, beta-tara Diabetic polyneuropathy Continue gabapentin confusion/encephalopathy--likely from pain meds, reduce narc and continue to monitor, check UA, minimal narc use, frequent reorientation PT is recommending STR Time Spent With Patient Time: Total time managing care of this patient today ____ minutes. Quality Stroke Does the patient have a stroke diagnosis?: No VTE Prior VTE?: No VTE Risk Level:: Surgical - low VTE Device Contraindication: N/A - Device Ordered VTE Drug Contraindication: N/A - Med Ordered
[2023-02-13 11:18] LABS: Glucose, Whole Blood 147 mg/dL (60-115)
[2023-02-13 11:55] VITALS: O2SAT 92
--- NOTE | 2023-02-13 13:21 | MHC.CM.PN ---
EMR REVIEWED. PT IS CLEARED FOR DC PER GENERAL SURGERY. PT RECEIVING NO BED OFFERS FOR STR, DUE TO LACK OF PARTICIPATION IN PHYSICAL THERAPY. PLAN TO DC HOME AND RESUME [facility]NA WITH [facility]. HOWEVER, DAUGHTER HAS REQUESTED A HOSPITAL BED FROM [facility] AND IS ALSO EXPLORING PRIVATELY PURCHASING A USED ONE. CALLED ANTHONY AT [facility], WHO WILL LOOK INTO THE REQUEST AND CALL BACK. DAUGHTER CONFIDENT SHE CAN OBTAIN A BED TODAY AND FEELS SHE CANNOT TAKE PT HOME WITHOUT THE BED. SURGICAL PA AWARE. PLAN FOR DC TOMORROW 02/14. WILL NEED BLS TRANSPORT HOME. [facility]NA UPDATED.
--- NOTE | 2023-02-13 14:32 | MHC.CLN ---
F/U DIET=DIABETIC 1800 KCALS; NDD2 CONSISTENCY. INCREASED PROTEIN NEEDS DUE TO IMPAIRED SKIN INTEGRITY. STAGE III PRESSURE INJURY TO LEFT BUTTOCK; EXCORIATION TO COCCYX. SUPPLEMENT ENSURE MAX PROTEIN BID. PROVIDES 300 KCALS, 60 G PROTEIN. INTAKE VARIABLE, WITH MOST MEALS 25%. FOLLOW FOR PO INTAKE AND WOUND HEALING.
[2023-02-13 15:06] VITALS: BP 138/68; RESP 18; TEMP 36.5; O2SAT 93
[2023-02-13 16:23] LABS: Glucose, Whole Blood 170 mg/dL (60-115)
[2023-02-13] MEDS: Insulin Lispro 100 UNIT/ML 3 ML VIAL SUBCUT (17:15)
[2023-02-13 18:30] VITALS: O2SAT 95
[2023-02-13 19:13] VITALS: BP 161/70; PULSE 70; RESP 18; TEMP 36.1; O2SAT 94
[2023-02-13 20:10] LABS: Glucose, Whole Blood 142 mg/dL (60-115)
[2023-02-13] MEDS: Amitriptyline HCl 25 MG TABLET PO (20:25)
[2023-02-13] MEDS: Insulin Glargine,Hum.rec.anlog 100 UNIT/ML 10 ML VIAL 20 UNIT SUBCUT (20:25)
[2023-02-13] MEDS: Latanoprost 0.005 % Ophth Sol 2.5 ML DROPS 1 DROP EYE-BOTH (20:26)
[2023-02-14 03:16] VITALS: BP 165/74; PULSE 82; RESP 14; TEMP 37.1; O2SAT 94
[2023-02-14] MEDS: Omeprazole 20 MG CAPSULE.DR PO (05:57)
[2023-02-14 06:59] VITALS: BP 172/67; PULSE 75; RESP 18; TEMP 36.9; O2SAT 96
[2023-02-14 07:16] LABS: Glucose, Whole Blood 140 mg/dL (60-115)
[2023-02-14] MEDS: oxyCODONE HCl Immed Release 5 MG TABLET PO ×2 (09:01→18:02)
[2023-02-14] MEDS: Losartan Potassium 50 MG TABLET 100 MG PO (09:06)
[2023-02-14] MEDS: Flecainide Acetate 50 MG TABLET 100 MG PO (09:06)
[2023-02-14] MEDS: Docusate Sodium 100 MG CAPSULE PO (09:06)
[2023-02-14] MEDS: Gabapentin 300 MG CAPSULE PO (09:06)
[2023-02-14] MEDS: polyethylene glycoL 3350 17 GM POWD.PACK PO (09:07)
[2023-02-14] MEDS: atenoloL 50 MG TABLET PO (09:07)
[2023-02-14] MEDS: Isosorbide Mononitrate 30 MG TAB.ER.24H PO (09:07)
[2023-02-14] MEDS: Nystatin Powder 15 GM BOTTLE 1 APPL TOPICAL (09:20)
[2023-02-14] MEDS: 0.9 % Sodium Chloride Flush 3 ML SYRINGE IVFLUSH (09:21)
[2023-02-14 11:31] LABS: Glucose, Whole Blood 158 mg/dL (60-115)
[2023-02-14] MEDS: Insulin Lispro 100 UNIT/ML 3 ML VIAL SUBCUT (11:47)
--- NOTE | 2023-02-14 12:49 | MHC.CM.PN ---
IMM 02/14/23 Patient is discharged to home today. [facility] will resume services. They have been notified of discharge today. BLS is booked for 5:30pm picker / packer at [facility]. Transport time requested by patients dtrenaldo Luu. The Hospital bed is being delivered this afternoon.
[2023-02-14 13:06] VITALS: BP 159/69; PULSE 80; RESP 20; O2SAT 96
--- NOTE | 2023-02-14 13:13 | PM.PNGS ---
Subjective Subjective Date of Service: 02/14/23 Interval history: No new complaints. Tolerating diet. Comfortable with oxycodone. Feels ready to go home. Physical Exam Vital Signs: Vital Signs: Last Vital Signs Temp 98.4 F 02/14/23 06:59 Pulse 80 02/14/23 13:06 Resp 20 02/14/23 13:06 BP 159/69 H 02/14/23 13:06 Pulse Ox 96 02/14/23 13:06 O2 Del Method Room Air 02/14/23 13:06 O2 Flow Rate 1 02/14/23 06:59 BMI result Body Mass Index 44.9 Const: General: comfortable, no acute distress and alert Orientation/consciousness: patient oriented x3 GI: Other: protuberant abdomen Inspection: Yes incision (clean) Palpation (GI): Soft to palpation Neuro: General: patient oriented x3 Objective Data Active Medications Albuterol Sulfate (Albuterol Sulfate 90 Mcg 8 Gm Inhaler) 2 puff INHALE Q6H PRN PRN Reason: bronchospasm Albuterol/Ipratropium (Albuterol/Iprat 2.5/0.5mg 3 Ml Ampul.Neb) 3 ml INHALE RQ4H PRN PRN Reason: Shortness of Breath/Wheezing Last Admin: 02/12/23 09:09 Dose: 3 ml Documented By: GUZMAN Amitriptyline HCl (Amitriptyline Hcl 25 Mg Tablet) 25 mg PO BEDTIME [facility] Last Admin: 02/13/23 20:25 Dose: 25 mg Documented By: IVONE Atenolol (Atenolol 50 Mg Tablet) 50 mg PO DAILY [facility]; Protocol Last Admin: 02/14/23 09:07 Dose: 50 mg Documented By: NI Dextrose (Dextrose 50 % 25 Gm/50 Ml Syringe) 25 gm IVPUSH Q15M PRN; Protocol PRN Reason: per Hypoglycemia Standing Ord. Docusate Sodium (Docusate Sodium 100 Mg Capsule) 100 mg PO BID [facility] Last Admin: 02/14/23 09:06 Dose: 100 mg Documented By: NI Flecainide Acetate (Flecainide Acetate 50 Mg Tablet) 100 mg PO BID [facility] Last Admin: 02/14/23 09:06 Dose: 100 mg Documented By: NI Gabapentin (Gabapentin 300 Mg Capsule) 300 mg PO BID [facility] Last Admin: 02/14/23 09:06 Dose: 300 mg Documented By: NI Glucose (Glucose Gel 15 Gm Gel..Gram.) 15 gm PO Q15M PRN; Protocol PRN Reason: per Hypoglycemia Standing Ord. Insulin Glargine (Insulin Glargine,Hum.Rec.Anlog 100 Unit/Ml 10 Ml Vial) 20 unit SUBCUT BEDTIME [facility] Last Admin: 02/13/23 20:25 Dose: 20 unit Documented By: IVONE Insulin Human Lispro (Insulin Lispro 100 Unit/Ml 3 Ml Vial) 0 unit SUBCUT QIDACHS [facility]; Protocol Last Admin: 02/14/23 11:47 Dose: 2 unit Documented By: NI Isosorbide Mononitrate (Isosorbide Mononitrate 30 Mg Tab.Er.24h) 30 mg PO DAILY [facility]; Protocol Last Admin: 02/14/23 09:07 Dose: 30 mg Documented By: NI Latanoprost (Latanoprost 0.005 % Ophth Cristina 2.5 Ml Drops) 1 drop EYE-BOTH BEDTIME [facility] Last Admin: 02/13/23 20:26 Dose: 1 drop Documented By: IVONE Lidocaine (Lidocaine 4 % Patch Adh..Patch) 1 patch TRANSDERMA DAILY PRN PRN Reason: pain Losartan Potassium (Losartan Potassium 50 Mg Tablet) 100 mg PO DAILY [facility]; Protocol Last Admin: 02/14/23 09:06 Dose: 100 mg Documented By: NI Nystatin (Nystatin Powder 15 Gm Bottle) 1 appl TOPICAL BID [facility]; Protocol Last Admin: 02/14/23 09:20 Dose: 1 appl Documented By: NI Omeprazole (Omeprazole 20 Mg Capsule.Dr) 20 mg PO DAILY@0630 [facility] Last Admin: 02/14/23 05:57 Dose: 20 mg Documented By: SARINA Oxycodone HCl (Oxycodone Hcl Immed Release 5 Mg Tablet) 5 mg PO Q4H PRN PRN Reason: Pain, Severe (Pain Scale 7-10) Last Admin: 02/14/23 09:01 Dose: 5 mg Documented By: NI Polyethylene Glycol (Polyethylene Glycol 3350 17 Gm Powd.Pack) 17 gm PO DAILY [facility] Last Admin: 02/14/23 09:07 Dose: 17 gm Documented By: NI Sodium Chloride (0.9 % Sodium Chloride Flush 3 Ml Syringe) 3 ml IVFLUSH QSHIFT [facility] Last Admin: 02/14/23 09:21 Dose: 3 ml Documented By: NI Labs 02/07/23 01:23 02/07/23 01:23 Labs: Laboratory Results - last 24 hr 02/13/23 02/13/23 02/14/23 16:19 19:58 07:06 POC Glucose 170 H 142 H 140 H 02/14/23 11:07 POC Glucose 158 H Procedures Date of Service Date of Service: 02/14/23 Progress Note: A&P Assessment and plan (1) Incarcerated ventral hernia: Status: Acute Plan Daughter has secured hospital bed. Patient stable for discharge to home today with resumption of services. Patient and family comfortable with plan. F/u in office in 1 week. Time Spent With Patient Time: Total time managing care of this patient today ____ minutes. Quality Stroke Does the patient have a stroke diagnosis?: No VTE Prior VTE?: No VTE Risk Level:: Surgical - low VTE Device Contraindication: N/A - Device Ordered VTE Drug Contraindication: N/A - Med Ordered
--- NOTE | 2023-02-14 14:51 | P.PNIM_ITS ---
Subjective Subjective Date of Service: 02/14/23 Interval History: Umbilical hernia repair on 02/07 Review of Systems d/w staff-family says menatal status seems near basleine no fevers Physical Exam 2 Vital Signs: Vital Signs: Last Vital Signs Temp 98.4 F 02/14/23 06:59 Pulse 80 02/14/23 13:06 Resp 20 02/14/23 13:06 BP 159/69 H 02/14/23 13:06 Pulse Ox 96 02/14/23 13:06 O2 Del Method Room Air 02/14/23 13:06 O2 Flow Rate 1 02/14/23 06:59 BMI result Body Mass Index 44.9 morbidly obese, CVRRR lung diminished but clear Abd sof, [place], dressing intact ext no edam neuro: NF Objective Data Active Medications Albuterol Sulfate (Albuterol Sulfate 90 Mcg 8 Gm Inhaler) 2 puff INHALE Q6H PRN PRN Reason: bronchospasm Albuterol/Ipratropium (Albuterol/Iprat 2.5/0.5mg 3 Ml Ampul.Neb) 3 ml INHALE RQ4H PRN PRN Reason: Shortness of Breath/Wheezing Last Admin: 02/12/23 09:09 Dose: 3 ml Documented By: GUZMAN Amitriptyline HCl (Amitriptyline Hcl 25 Mg Tablet) 25 mg PO BEDTIME [facility] Last Admin: 02/13/23 20:25 Dose: 25 mg Documented By: IVONE Atenolol (Atenolol 50 Mg Tablet) 50 mg PO DAILY [facility]; Protocol Last Admin: 02/14/23 09:07 Dose: 50 mg Documented By: NI Dextrose (Dextrose 50 % 25 Gm/50 Ml Syringe) 25 gm IVPUSH Q15M PRN; Protocol PRN Reason: per Hypoglycemia Standing Ord. Docusate Sodium (Docusate Sodium 100 Mg Capsule) 100 mg PO BID [facility] Last Admin: 02/14/23 09:06 Dose: 100 mg Documented By: NI Flecainide Acetate (Flecainide Acetate 50 Mg Tablet) 100 mg PO BID [facility] Last Admin: 02/14/23 09:06 Dose: 100 mg Documented By: NI Gabapentin (Gabapentin 300 Mg Capsule) 300 mg PO BID [facility] Last Admin: 02/14/23 09:06 Dose: 300 mg Documented By: NI Glucose (Glucose Gel 15 Gm Gel..Gram.) 15 gm PO Q15M PRN; Protocol PRN Reason: per Hypoglycemia Standing Ord. Insulin Glargine (Insulin Glargine,Hum.Rec.Anlog 100 Unit/Ml 10 Ml Vial) 20 unit SUBCUT BEDTIME [facility] Last Admin: 02/13/23 20:25 Dose: 20 unit Documented By: IVONE Insulin Human Lispro (Insulin Lispro 100 Unit/Ml 3 Ml Vial) 0 unit SUBCUT QIDACHS [facility]; Protocol Last Admin: 02/14/23 11:47 Dose: 2 unit Documented By: NI Isosorbide Mononitrate (Isosorbide Mononitrate 30 Mg Tab.Er.24h) 30 mg PO DAILY [facility]; Protocol Last Admin: 02/14/23 09:07 Dose: 30 mg Documented By: NI Latanoprost (Latanoprost 0.005 % Ophth Cristina 2.5 Ml Drops) 1 drop EYE-BOTH BEDTIME [facility] Last Admin: 02/13/23 20:26 Dose: 1 drop Documented By: IVONE Lidocaine (Lidocaine 4 % Patch Adh..Patch) 1 patch TRANSDERMA DAILY PRN PRN Reason: pain Losartan Potassium (Losartan Potassium 50 Mg Tablet) 100 mg PO DAILY [facility]; Protocol Last Admin: 02/14/23 09:06 Dose: 100 mg Documented By: NI Nystatin (Nystatin Powder 15 Gm Bottle) 1 appl TOPICAL BID [facility]; Protocol Last Admin: 02/14/23 09:20 Dose: 1 appl Documented By: NI Omeprazole (Omeprazole 20 Mg Capsule.Dr) 20 mg PO DAILY@0630 [facility] Last Admin: 02/14/23 05:57 Dose: 20 mg Documented By: SARINA Oxycodone HCl (Oxycodone Hcl Immed Release 5 Mg Tablet) 5 mg PO Q4H PRN PRN Reason: Pain, Severe (Pain Scale 7-10) Last Admin: 02/14/23 09:01 Dose: 5 mg Documented By: NI Polyethylene Glycol (Polyethylene Glycol 3350 17 Gm Powd.Pack) 17 gm PO DAILY [facility] Last Admin: 02/14/23 09:07 Dose: 17 gm Documented By: NI Sodium Chloride (0.9 % Sodium Chloride Flush 3 Ml Syringe) 3 ml IVFLUSH QSHIFT [facility] Last Admin: 02/14/23 09:21 Dose: 3 ml Documented By: NI Labs 02/07/23 01:23 02/07/23 01:23 Labs: Laboratory Results - last 24 hr 02/13/23 02/13/23 02/14/23 16:19 19:58 07:06 POC Glucose 170 H 142 H 140 H 02/14/23 11:07 POC Glucose 158 H Assessment and Plan (1) Insulin dependent type 1 diabetes mellitus: Status: Acute Plan 76-year-old female with a PMH significant for COPD, renal mass, 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 Patient was admitted under General surgery for large 5 cm incarcerated umbilical hernia, or patient underwent hernia repair with mesh on 02/07. Umbilical hernia repair on 02/07 management by surgery, tolerating regular diet with no other complaint Hypomagnesemia, corrected and resolved. Confusion, likely multifactorial post op setting, narc and underlying cognitive desorder--better today Stage II decubitus ulcer Wound nurse consult Patient positioning q2hr and optimize nutrition Insulin-dependent type 2 diabetes, BS are well controlled, continue present meds (SSI + lantus), to resume prior meds upon discharge HTN Continue home meds Paroxysmal atrial fibrillation Pacemaker in place Continue flecainide, atenolol, no longer anticoagulated CHF, unspecified ejection fraction Not in acute exacerbation Continue p.o. diuretics COPD Not in acute exacerbation Continue home inhalers CAD/HLD Continue statin, isosorbide, beta-tara Diabetic polyneuropathy Continue gabapentin confusion/encephalopathy--likely from pain meds, reduce narc and continue to monitor, minimal narc use, frequent reorientation. mental status seems near baseline as per family. denies any urianry or respiratory or new complaints PT is recommending STR Time Spent With Patient Time: Total time managing care of this patient today ____ minutes. Quality Stroke Does the patient have a stroke diagnosis?: No VTE Prior VTE?: No VTE Risk Level:: Surgical - low VTE Device Contraindication: N/A - Device Ordered VTE Drug Contraindication: N/A - Med Ordered
[2023-02-14 15:28] VITALS: BP 157/67; PULSE 80; RESP 18; TEMP 36.7; O2SAT 92
[2023-02-14 16:15] VITALS: PULSE 66; RESP 20; O2SAT 98
[2023-02-14] MEDS: Albuterol/Iprat 2.5/0.5MG 3 ML AMPUL.NEB INHALE (16:15)
[2023-02-14 16:32] LABS: Glucose, Whole Blood 142 mg/dL (60-115)
--- NOTE | 2023-02-14 17:34 | PC.NURSE ---
Patient bladder scanned for 397 ml at 1630,voided 400 ml at 1730 ,will monitor
== END 2023-02-14 19:17 | disposition home health service (06) | DRG 353 ==
LOC: HO.ED 03:03 → HO.EDOVER 05:46 → HO.S3 16:48
PROVIDERS: Student in an Organized Health Care Education/Training Program; Admitting Provider Surgery; Emergency Provider Emergency Medicine; PCP Physician Assistant; Visit Provider Surgery
PROC: 0WUF0JZ Supplement Abdominal Wall with Synthetic Substitute, Open Approach (ICD-10-PCS; principal; 2023-02-07 12:50)
DX: K42.0 Umbilical hernia with obstruction, without gangrene (principal); G92.8 Other toxic encephalopathy; E66.2 Morbid (severe) obesity with alveolar hypoventilation; Z68.41 Body mass index [BMI] 40.0-44.9, adult; I87.311 Chronic venous hypertension (idiopathic) with ulcer of right lower extremity; L97.819 Non-pressure chronic ulcer of other part of right lower leg with unspecified severity; E83.42 Hypomagnesemia; M79.7 Fibromyalgia; F41.1 Generalized anxiety disorder; F03.90 Unspecified dementia, unspecified severity, without behavioral disturbance, psychotic disturbance, mood disturbance, and anxiety; I48.0 Paroxysmal atrial fibrillation; I11.0 Hypertensive heart disease with heart failure; E11.42 Type 2 diabetes mellitus with diabetic polyneuropathy; I25.10 Atherosclerotic heart disease of native coronary artery without angina pectoris; E78.5 Hyperlipidemia, unspecified; T40.605A Adverse effect of unspecified narcotics, initial encounter; I50.9 Heart failure, unspecified; J44.9 Chronic obstructive pulmonary disease, unspecified; L89.322 Pressure ulcer of left buttock, stage 2; Z20.822 Contact with and (suspected) exposure to COVID-19; Z95.0 Presence of cardiac pacemaker; Z79.4 Long term (current) use of insulin; Z79.899 Other long term (current) drug therapy
CPT/HCPCS: 36415; 74176; 80048; 80076; 81001; 82947; 83690; 83735; 84484; 85025; 87086; 87635; 88302; 93005; 94640; 97110; 97163; 99285; C1781; J0131; J0330; J0690; J2270; J2371; J2405; J2795; J3010; J3475

== ENCOUNTER → 2023-02-07 05:42 | Outpatient (BNV) | payer OTHER, SELFPAY | PROVIDERS: Admitting Provider Surgery; Emergency Provider Emergency Medicine; PCP Physician Assistant; Visit Provider Surgery | DX: K43.6 Other and unspecified ventral hernia with obstruction, without gangrene (principal); K56.609 Unspecified intestinal obstruction, unspecified as to partial versus complete obstruction | CPT/HCPCS: 49594; 99024; 99222; 99231; 99232; 99238 ==

== ENCOUNTER → 2023-02-07 05:42 | Outpatient (BNV) | payer OTHER, SELFPAY | PROVIDERS: Admitting Provider Surgery; Emergency Provider Emergency Medicine; PCP Physician Assistant; Visit Provider Student in an Organized Health Care Education/Training Program | DX: E11.65 Type 2 diabetes mellitus with hyperglycemia (principal) | CPT/HCPCS: 99222; 99231; 99232 ==

== ENCOUNTER 2023-02-17 10:33 | Inpatient (IN) | payer OTHER, SELFPAY ==
[2023-02-17 10:41] VITALS: BP 123/50; BP 153/54; PULSE 80; RESP 18; TEMP 37.1; O2SAT 95; O2SAT 97; BMI 45.0
--- NOTE | 2023-02-17 10:48 | PC.NURSE ---
Patient brought in by EMS for complaints of sob and wheezing. Patient recently discharged after hernia repair surgery. Denies pain or discomfort. No wheezing heard, 97% on 2 liters NC. Granddaughter at bedside
--- NOTE | 2023-02-17 10:54 | ED.GENADULT ---
HPI - General Adult General Chief complaint: General Medical Stated complaint: SOB NEB TREATMENT IN ROUTE Time Seen by Provider: 02/17/23 10:39 Source: patient, EMS and old records reviewed Mode of arrival: EMS Limitations: no limitations History of Present Illness HPI narrative: 77 yo female with PMH of UTI, OA, GERD, HTN, HLD, COPD on 1.5L home O2, CHF, anxiety, IDDM s/p repair of incarcerated ventral hernia with admission on 02/07 and DC on 02/14 taken off pradaxa. She was confused post surgery and STR was recommended but she has a good support system at home and [employer] [place] and lives with family - has hospital bed as well. This AM the patient was more confused, pulling off oxygen, sats were 94%, agitated, anxious and wheezing - EMS gave neb. No falls reported. The family states she just hasn't really recovered mentally - she is alert and oriented to person and place but asks repetitive questions. MD complaint: confusion, wheezing Onset (ago): week(s) (1 week) Radiation: non-radiation Severity: moderate Relieving factors: rest and other (neb treatment) Exacerbating factors: none Associated symptoms: other (wheezing, confusion) Treatments prior to arrival: other (neb by EMS) Related Data Home Medications Medication Instructions Recorded Confirmed blood sugar diagnostic #10 ea 03/12/20 12/01/22 docusate sodium 100 mg capsule 100 mg PO DAILY 09/10/22 02/07/23 insulin aspart U-100 100 unit/mL See Protocol subcut TIDAC PRN 09/10/22 02/07/23 (3 mL) subcutaneous pen (Novolog Hyperglycemia FlexPen U-100 Insulin aspart) albuterol sulfate 90 mcg/actuation 2 puff PO Q6H PRN bronchospasm 12/01/22 02/07/23 aerosol inhaler insulin degludec 100 unit/mL (3 50 unit subcut BID 12/01/22 02/07/23 mL) subcutaneous pen (Tresiba FlexTouch U-100 insulin) pantoprazole 40 mg tablet,delayed 40 mg PO DAILY@0630 12/01/22 02/07/23 release polyethylene glycol 3350 17 gram 17 g PO DAILY 12/01/22 02/07/23 oral powder packet (Miralax) sennosides 8.6 mg tablet (Senna 8.6 mg PO BID 12/01/22 02/07/23 Lax) latanoprost 0.005 % eye drops 1 drp ophthalmic (eye) QPM 02/07/23 02/07/23 Previous Rx's Medication Instructions Recorded blood pressure monitor (Blood #1 ea 03/12/20 Pressure Kit) humidifiers (Cool Mist Humidifier) #1 ea 03/12/20 Shower Chair (Chair, shower) #1 ea 09/14/20 walker (Ultra-Light Rollator misc) #1 ea 06/30/21 lancing device with lancets kit #1 ea 03/24/22 losartan 100 mg tablet 100 mg PO DAILY #90 tabs 05/11/22 colchicine (gout) 0.6 mg tablet 0.6 mg PO DAILY #90 tabs 07/08/22 (Colcrys) isosorbide mononitrate 30 mg 30 mg PO DAILY 90 days #90 tabs 07/08/22 tablet,extended release 24 hr sitagliptin phosphate 50 mg tablet 50 mg PO DAILY 90 days #90 tabs 07/08/22 (Januvia) amitriptyline 25 mg tablet 25 mg PO BEDTIME 30 days #30 tabs 09/14/22 flecainide 100 mg tablet 100 mg PO BID #180 tabs 09/14/22 blood sugar diagnostic (OneTouch #100 ea 10/07/22 Ultra Test strips) blood-glucose meter (OneTouch #1 ea 10/07/22 Ultra2 Meter) lancets 30 gauge (OneTouch #200 ea 10/07/22 UltraSoft 2 Lancet) pen needle, diabetic 32 gauge x #300 ea 10/17/2232 (BD Laury 2nd Gen Pen Needle) gabapentin 300 mg capsule 300 mg PO BID 30 days #60 caps 11/02/22 compr.stocking,knee,long,x-lrg #12 ea 11/08/22 atenolol 50 mg tablet 50 mg PO DAILY #30 tabs 12/13/22 hospital bed #1 ea 01/31/23 lidocaine 5 % topical patch 1 patch topical DAILY PRN pain #15 02/01/23 ea acetaminophen 500 mg tablet 1,000 mg (2 x 500 mg) PO Q6H PRN 02/06/23 (Tylenol Extra Strength) fever or pain #20 tabs oxycodone 5 mg tablet 5 mg PO BID severe pain (scale 02/06/23 score 7-10) 28 days #56 tabs trazodone 50 mg tablet 50 mg PO BEDTIME 30 days #30 tabs 02/16/23 Allergies Allergy/AdvReac Type Severity Reaction Status Date / Time dapagliflozin [From [facility]] Allergy Unknown yeast Verified 02/07/23 12:38 infection metformin Allergy Unknown Diarrhea Verified 02/07/23 12:38 amitriptyline AdvReac Intermediate Anxiety Verified 02/07/23 12:38 clindamycin AdvReac Mild Itching Verified 02/07/23 12:38 Review of Systems Review of Systems: Constitutional : No Fever, No Chills ENT/Mouth : No Hoarseness, No sore throat, No Rhinorrhea Eyes: No Redness, No Discharge, No Vision Changes Cardiovascular : No Chest Pain, positive SOB, positive Dyspnea on Exertion, No Edema Respiratory : positive Cough, No Sputum, positive Wheezing, Gastrointestinal : No Nausea, No Vomiting, No Diarrhea, No abdominal Pain Genitourinary : No Dysuria, No Hematuria Musculoskeletal : No joint pain, No Myalgias Skin : No rash Neuro : No Weakness, No Numbness, No Headache, pos confusion Psych : No anxiety, depression Heme/Lymph: No Bruising, No Bleeding Endocrine : No Polyuria, No Polydipsia All other systems reviewed and are negative PMFSH Past Medical History Attestation statement: The following information was validated with the patient. Source: old records reviewed Medical History Unstable angina URI (upper respiratory infection) Mass of right kidney NADEGE (generalized anxiety disorder) GERD (gastroesophageal reflux disease) Decompensated heart failure HTN (hypertension) Arthritis Insulin dependent type 1 diabetes mellitus Foot ulcer Fibromyalgia Coronary artery disease COPD (chronic obstructive pulmonary disease) Pacemaker Afib Surgical History Hx laparoscopic cholecystectomy H/O vein stripping Tubal ligation status History of cataract surgery History of pacemaker Family History Family History Father No problems noted. Mother No problems noted. Social History Social History Household Members: Family Household Members Other:: son stays with her, family nearby Housing: House Do you presently have visiting nurse or other home services: Yes Alcohol intake: former Patient Tobacco Use Status: Never used Tobacco Smoked in Last 30 Days: No e-Cigarette/Vaping Use: Never Used Second Hand Smoke Exposure: No Use of substances other than those prescribed or required for medical reasons: No Advance Directives: Yes Advance Directives on File: Yes Advance Directives Date on File: 06/17/20 service: No Current occupational status: retired and disabled Cognitive needs: Yes Hearing needs: No Vision needs: Yes Physical Exam ED Vital Signs: Vital Signs - 24 hr 02/17/23 10:41 02/17/23 11:25 02/17/23 13:05 Temperature 98.8 F Pulse Rate 80 80 80 Respiratory Rate 18 27 H 18 Blood Pressure 153/54 H 153/54 H Pulse Oximetry 97 96 Oxygen Delivery Method Nasal Cannula Nasal Cannula Oxygen Flow Rate 2 BMI result Body Mass Index 45.0 Appearance: Alert. Oriented X to person and place. No acute distress. Eyes: Pupils equal, round and reactive to light. ENT: Pharynx normal. Atraumatic Neck: Normal inspection. Neck supple. CVS: Normal heart rate and rhythm. Pulses normal. Respiratory: No respiratory distress. Breath sounds diminished but minimal upper wheezes noted she is not in resp distress she is on her 1.5L 95% Abdomen: Soft and nontender. incisions are clean dry and intact. Skin: Skin warm and dry. Normal skin color. Normal skin turgor. Extremities: trace pitting edema improved from her baseline Neuro: Oriented X 2. No motor deficit. No sensory deficit. Course Course Course Narrative: given edema and elevated BNP - IV lasix ordered Medications Administered Generic Name Dose Route Start Last Admin Trade Name Freq PRN Reason Stop Dose Admin Magnesium Sulfate 2 gm in 50 mls @ 25 mls/hr 02/17/23 11:54 02/17/23 13:42 Magnesium Sulfate/H2o IV 02/17/23 13:53 Infused ONCE ONE Infusion Discontinued Medications Generic Name Dose Route Start Last Admin Trade Name Freq PRN Reason Stop Dose Admin Albuterol Sulfate 5 mg/ 0 mg 02/17/23 11:13 02/17/23 11:24 Albuterol/Ipratropium 3 ml INHALE 02/17/23 11:14 5 each ONCE ONE Administration Furosemide 40 mg 02/17/23 11:55 02/17/23 12:01 Furosemide 40 Mg/4 Ml Vial IVPUSH 02/17/23 11:56 40 mg ONCE ONE Administration Protocol Medical Decision Making Medical Decision Making [facility] Narrative: 77 yo female with PMH of UTI, OA, GERD, HTN, HLD, COPD on 1.5L home O2, CHF, anxiety, IDDM s/p repair of incarcerated ventral hernia with admission on 02/07 and DC on 02/14 taken off pradaxa confusion post surgery went home on Monday here with c/o persistent confusion and then this AM seemed more confused pulling off her home O2 with wheezing. Responded to EMS neb. At this time will need labs, CXR, UA, CT head for possible stroke/ICH. VBG and repeat neb but she is not in resp distress. The confusion has been since the procedure could be med related. She was referred for STR but family decided to take her home. Differential Diagnosis Differential Diagnoses: The differential diagnosis associated with the presentation includes CO2 retention, post anesthesia reaction, dementia, delerium, toxic or metabolic encephalopathy Admission/Observation Consideration of admission/observation: Escalation of care including admission/observation considered admit for CHF and low magnesium Consult Healthcare Provider Management of the patient was discussed with: Hospitalist (admit for CHF and low magnesium) Lab Data [facility] Lab Attestation statement: I reviewed the patient's lab results. repleting magnesium BNP higher than baseline 02/17/23 11:18 02/17/23 11:18 Labs: Lab Results 02/17/23 02/17/23 02/17/23 Range/Units 11:18 11:19 11:31 WBC 12.9 H (4.8-10.8) X10*3/uL RBC 4.86 (4.20-5.50) X10*6/uL Hgb 13.8 (12.0-16.0) g/dl Hct 42.8 (37.0-47.0) % MCV 88.1 (80.0-98.0) fL MCH 28.4 (27.0-33.0) pg MCHC 32.2 (31.0-35.0) g/dl RDW 15.4 (11.0-16.0) % Plt Count 387 D (160-400) X10*3/uL MPV 9.8 (9.4-12.3) fL Immature Gran % (Auto) 1.1 H (0.0-0.4) % Neut % (Auto) 82.1 H (45-73) % Lymph % (Auto) 10.4 L (20-40) % [place] % (Auto) 5.4 (2-11) % Eos % (Auto) 0.9 (0-4) % Baso % (Auto) 0.1 (0-2) % Lymph # (Auto) 1.4 (1.2-4.9) X10*3/uL [place] # (Auto) 0.7 (0.1-1.2) X10*3/uL Eos # (Auto) 0.1 (0.0-0.4) X10*3/uL Baso # (Auto) 0.0 (0.0-0.2) X10*3/uL Abs Immat Gran (auto) 0.14 H (0.00-0.03) X10*3/uL Absolute Neuts (auto) 10.6 H (2.0-8.3) x10*3/uL Absolute Nucleated RBC 0.000 (0.0-0.012) X10*3/uL Nucleated RBC % (auto) 0.0 (0.0-0.2) /100WBC VBG pH 7.50 H (7.32-7.43) VBG pCO2 47 mmHg VBG pO2 62 mmHg VBG HCO3 37 H (22-26) mmol/L VBG O2 Saturation 89.0 % VBG Base Excess 12.3 mmol/L Sodium 143 (135-145) mmol/L Potassium 3.9 (3.3-5.1) mmol/L Chloride 99 (96-108) mmol/L Carbon Dioxide 27 (22-29) mmol/L Anion Gap 21 H (12-20) BUN 8 L (9-16) mg/dL Creatinine 0.60 (0.5-1.4) mg/dL Estim Creat Clear Calc 99.6 Estimated GFR > 60 Random Glucose 183 H (60-115) mg/dL Calcium 10.5 H (8.4-10.2) mg/dL Magnesium 1.2 L* (1.6-2.6) mg/dL Total Bilirubin 0.6 (0.0-1.0) mg/dL Direct Bilirubin 0.2 (0.0-0.5) mg/dL AST 14 (5-31) U/L ALT 7 (0-31) U/L Alkaline Phosphatase 84 (39-117) U/L Ammonia 35 (13-55) umol/L Troponin I High Sens 12.8 D (<3.5-17.0) ng/L B-Natriuretic Peptide 319 H (<100) pg/mL Total Protein 7.5 (6.5-8.0) g/dL Albumin 3.6 (3.5-5.0) g/dL Lipase 17 (8-78) U/L TSH 0.83 (0.32-4.0) uIU/mL Urine Color Urine Appearance Urine pH (5.0-9.0) Ur Specific [place] (1.005-1.025) Urine Protein (Neg-Trace) mg/dL Urine Glucose (UA) (Negative) mg/dL Urine Ketones (Negative) mg/dL Urine Blood (Negative) Urine Nitrite (Negative) Ur Leukocyte Esterase (Negative) Urine RBC (0-2) /HPF Urine WBC (0-5) /HPF Ur Squamous Epith Cells (0-2) /HPF Urine Bacteria (None Seen) Hyaline Casts (0-2) /LPF COVID-19 (AYANNA) (Negative) COVID-19 Clin Com 02/17/23 02/17/23 Range/Units 11:41 13:04 WBC (4.8-10.8) X10*3/uL RBC (4.20-5.50) X10*6/uL Hgb (12.0-16.0) g/dl Hct (37.0-47.0) % MCV (80.0-98.0) fL MCH (27.0-33.0) pg MCHC (31.0-35.0) g/dl RDW (11.0-16.0) % Plt Count (160-400) X10*3/uL MPV (9.4-12.3) fL Immature Gran % (Auto) (0.0-0.4) % Neut % (Auto) (45-73) % Lymph % (Auto) (20-40) % [place] % (Auto) (2-11) % Eos % (Auto) (0-4) % Baso % (Auto) (0-2) % Lymph # (Auto) (1.2-4.9) X10*3/uL [place] # (Auto) (0.1-1.2) X10*3/uL Eos # (Auto) (0.0-0.4) X10*3/uL Baso # (Auto) (0.0-0.2) X10*3/uL Abs Immat Gran (auto) (0.00-0.03) X10*3/uL Absolute Neuts (auto) (2.0-8.3) x10*3/uL Absolute Nucleated RBC (0.0-0.012) X10*3/uL Nucleated RBC % (auto) (0.0-0.2) /100WBC VBG pH (7.32-7.43) VBG pCO2 mmHg VBG pO2 mmHg VBG HCO3 (22-26) mmol/L VBG O2 Saturation % VBG Base Excess mmol/L Sodium (135-145) mmol/L Potassium (3.3-5.1) mmol/L Chloride (96-108) mmol/L Carbon Dioxide (22-29) mmol/L Anion Gap (12-20) BUN (9-16) mg/dL Creatinine (0.5-1.4) mg/dL Estim Creat Clear Calc Estimated GFR Random Glucose (60-115) mg/dL Calcium (8.4-10.2) mg/dL Magnesium (1.6-2.6) mg/dL Total Bilirubin (0.0-1.0) mg/dL Direct Bilirubin (0.0-0.5) mg/dL AST (5-31) U/L ALT (0-31) U/L Alkaline Phosphatase (39-117) U/L Ammonia (13-55) umol/L Troponin I High Sens (<3.5-17.0) ng/L B-Natriuretic Peptide (<100) pg/mL Total Protein (6.5-8.0) g/dL Albumin (3.5-5.0) g/dL Lipase (8-78) U/L TSH (0.32-4.0) uIU/mL Urine Color Yellow Urine Appearance Clear Urine pH 7.5 (5.0-9.0) Ur Specific [place] 1.010 (1.005-1.025) Urine Protein 30 (1+) H (Neg-Trace) mg/dL Urine Glucose (UA) Negative (Negative) mg/dL Urine Ketones Negative (Negative) mg/dL Urine Blood Negative (Negative) Urine Nitrite Negative (Negative) Ur Leukocyte Esterase Trace H (Negative) Urine RBC 0-2 (0-2) /HPF Urine WBC 6-10 H (0-5) /HPF Ur Squamous Epith Cells 0-2 (0-2) /HPF Urine Bacteria None Seen (None Seen) Hyaline Casts 0-2 (0-2) /LPF COVID-19 (AYANNA) Negative (Negative) COVID-19 Clin Com See Note Independent Interpretation I performed an independent interpretation of an: EKG, Plain X-Ray (edema) and CT Scan Interpretation: Rate: 80 Rhythm: paced [place]: left wide QRS complex. ST T wave : nonspecific changes associated with PPM qTC: slightly prolonged prior studies: no acute change The study has been interpreted contemporaneously by me. . Radiology Impression Discussion of test interpretation with radiology: I have reviewed the radiologist's reading. Independent Historian Clinical information obtained from an independent historian. History obtained from or confirmed by: EMS and Other (granddaughter) External Record Review External record reviewed: Inpatient record Critical Care Time Critical Care Time Critical Care Time: Yes Total Critical Care Time: 31 Attestation: IV magnesium repletion to replace magnesium I attest to this time spent taking care of the patient Discharge Plan Discharge Clinical Impression: Hypomagnesemia CHF (congestive heart failure) Qualifiers: Heart failure type: unspecified Heart failure chronicity: acute on chronic Qualified Code(s): I50.9 - Heart failure, unspecified Patient Disposition: Admitted As Inpatient Prescriptions: No Action (DME) Chair, shower Misc See Rx Instructions .ROUTE .MEDSUPPLY Qty: 1 0RF Rx Instructions: As directed (DME) lancing device with lancets Kit See Rx Instructions .Route Qty: 1 0RF Rx Instructions: As directed losartan 100 mg tablet 100 mg PO DAILY Qty: 90 1RF colchicine (gout) [Colcrys] 0.6 mg tablet 0.6 mg PO DAILY Qty: 90 2RF Januvia 50 mg tablet 50 mg PO DAILY 90 Days Qty: 90 3RF isosorbide mononitrate 30 mg tablet extended release 24 hr 30 mg PO DAILY 90 Days Qty: 90 2RF (DME) blood-glucose meter [OneTouch Ultra2 Meter] Misc See Rx Instructions .Route Qty: 1 0RF Rx Instructions: test 3 times a day (DME) OneTouch Ultra Test Strip See Rx Instructions .Route Qty: 100 5RF Rx Instructions: test 3x's per day (DME) lancets [OneTouch UltraSoft 2 Lancet] 30 gauge misc See Rx Instructions .Route Qty: 200 5RF Rx Instructions: test 3x's per day (DME) pen needle, diabetic [BD Laury 2nd Gen Pen Needle] 32 gauge x 5/32 needle See Rx Instructions .Route Qty: 300 3RF Rx Instructions: Use to inject insulin 4 times per day gabapentin 300 mg capsule 300 mg PO BID 30 Days Qty: 60 1RF (DME) compr.stocking,knee,long,x-lrg Misc See Rx Instructions .Route Qty: 12 1RF Rx Instructions: WHITE SOCKS PLEASE atenolol 50 mg tablet 50 mg PO DAILY Qty: 30 3RF (DME) hospital bed Kit See Rx Instructions .Route Qty: 1 0RF Rx Instructions: As directed lidocaine 5 % adhesive patch,medicated 1 patch topical DAILY PRN (Reason: pain) Qty: 15 3RF Rx Instructions: leave on most painful area for up to 12 hrs oxycodone 5 mg tablet 5 mg PO BID 28 Days Qty: 56 0RF Rx Instructions: Partial Fill upon patient request. acetaminophen [Tylenol Extra Strength] 500 mg tablet 1,000 mg PO Q6H PRN (Reason: fever or pain) Qty: 20 0RF trazodone 50 mg tablet 50 mg PO BEDTIME 30 Days Qty: 30 3RF pantoprazole 40 mg tablet,delayed release (DR/EC) 40 mg PO DAILY@0630 albuterol sulfate 90 mcg/actuation HFA aerosol inhaler 2 puff PO Q6H PRN (Reason: bronchospasm) polyethylene glycol 3350 [Miralax] 17 gram Powder In Packet 17 g PO DAILY sennosides [Senna Lax] 8.6 mg tablet 8.6 mg PO BID insulin degludec [Tresiba FlexTouch U-100] 100 unit/mL (3 mL) insulin pen 50 unit subcut BID latanoprost 0.005 % Drops 1 drp OPHTHALMIC (EYE) QPM docusate sodium 100 mg capsule 100 mg PO DAILY insulin aspart U-100 [Novolog FlexPen U-100 Insulin] 100 unit/mL (3 mL) insulin pen See Protocol subcut TIDAC PRN (Reason: Hyperglycemia) Protocol: Insulin Correction Scale Less than or equal to 110 ---- Give (units): 0 111 to 150 Give (units): 0 151 to 200 Give (units): 2 201 to 250 Give (units): 4 251 to 300 Give (units): 6 301 to 350 Give (units): 8 Greater than 350 Give (units): 10 Call MD if Blood Glucose > : 350 Rx Instructions: Per sliding scale 0-24 units (DME) blood sugar diagnostic Strip See Rx Instructions Not Applicable QID Qty: 10 Rx Instructions: As directed (DME) blood pressure monitor [Blood Pressure Kit] Kit See Rx Instructions .ROUTE .MEDSUPPLY Qty: 1 0RF Rx Instructions: As directed (DME) humidifiers [Cool Mist Humidifier] Misc See Rx Instructions .ROUTE .MEDSUPPLY Qty: 1 0RF Rx Instructions: As directed (DME) Ultra-Light Rollator Misc See Rx Instructions .Route Qty: 1 0RF Rx Instructions: As directed amitriptyline 25 mg tablet 25 mg PO BEDTIME 30 Days Qty: 30 3RF flecainide 100 mg tablet 100 mg PO BID Qty: 180 1RF
[2023-02-17 11:25] VITALS: PULSE 80; RESP 27; O2SAT 96
[2023-02-17 11:27] LABS: MANUAL DIFF FLAG NO
[2023-02-17 11:28] LABS: Basophils Percent Auto 0.1 % (0-2); Eosinophils Absolute Auto 0.1 X10*3/uL (0.0-0.4); Eosinophils Percent Auto 0.9 % (0-4); Hematocrit 42.8 % (37.0-47.0); Hemoglobin 13.8 g/dl (12.0-16.0); Imm Gran Abs Auto 0.14 X10*3/uL (0.00-0.03); Imm Gran Pct Auto 1.1 % (0.0-0.4); Lymphocytes Absolute Auto 1.4 X10*3/uL (1.2-4.9); Lymphocytes Percent Auto 10.4 % (20-40); Mean Corpuscular HGB Conc 32.2 g/dl (31.0-35.0); Mean Corpuscular Hemoglobin 28.4 pg (27.0-33.0); Mean Corpuscular Volume 88.1 fL (80.0-98.0); Mean Platelet Volume 9.8 fL (9.4-12.3); Monocytes Absolute Auto 0.7 X10*3/uL (0.1-1.2); Monocytes Percent Auto 5.4 % (2-11); Neutrophils Absolute Auto 10.6 x10*3/uL (2.0-8.3); Neutrophils Percent Auto 82.1 % (45-73); Platelet Count 387 X10*3/uL (160-400); Red Blood Count 4.86 X10*6/uL (4.20-5.50); Red Cell Distribution Width 15.4 % (11.0-16.0); White Blood Count 12.9 X10*3/uL (4.8-10.8)
[2023-02-17 11:37] LABS: VBG Base Excess 12.3 mmol/L; VBG HCO3 37 mmol/L (22-26); VBG pCO2 47 mmHg; VBG pO2 62 mmHg
[2023-02-17 11:40] LABS: Ammonia 35 umol/L (13-55)
[2023-02-17 11:53] LABS: Alanine Aminotransferase 7 U/L (0-31); Albumin Level 3.6 g/dL (3.5-5.0); Alkaline Phosphatase 84 U/L (39-117); Anion Gap 21 (12-20); Aspartate Amino Transferase 14 U/L (5-31); Bilirubin Direct 0.2 mg/dL (0.0-0.5); Bilirubin Total 0.6 mg/dL (0.0-1.0); Blood Urea Nitrogen 8 mg/dL (9-16); Calcium 10.5 mg/dL (8.4-10.2); Carbon Dioxide 27 mmol/L (22-29); Chloride 99 mmol/L (96-108); Creatinine Clr Calc Pharmacy 99.6; Estimated Glomerular Filt Rate > 60; Glucose Random 183 mg/dL (60-115); Lipase 17 U/L (8-78); Magnesium 1.2 mg/dL (1.6-2.6); Potassium 3.9 mmol/L (3.3-5.1); Sodium 143 mmol/L (135-145); Total Protein 7.5 g/dL (6.5-8.0)
--- NOTE | 2023-02-17 13:04 | PC.NURSE ---
julianwick in place, 300mls of john color output, reports feels like she is breathing easier
[2023-02-17 13:05] VITALS: BP 153/54; PULSE 80; RESP 18; O2SAT 96
--- NOTE | 2023-02-17 13:46 | PC.NURSE ---
Repositioned in bed, denies pain or discomfort, grandaughter at bedside
--- NOTE | 2023-02-17 14:35 | PHA.MEDREC ---
Pharmacy Consult ? Medication Reconciliation Pharmacy has completed the medication reconciliation. Patient discharged 02/14
--- NOTE | 2023-02-17 15:27 | PM.IMHP ---
History of Present Illness Date of Service: 02/17/23 Attending physician on admission: Manuel Gautam Chief Complaint: sob, wheezing, confusion 76 year old female with history type 2 diabetes, renal mass, COPD with chronic hypoxic respiratory failure on 1.5L supplemental O2 at baseline, CHF unspecified EF, hypertension, GERD, coronary artery disease, fibromyalgia, diabetic polyneuropathy, chronic low back pain, hyperlipidemia, paroxysmal atrial fibrillation anticoagulated on flecainide no longer on pradaxa for anticoagulation, bipolar disorder, and balance disorder ambulates with walker at baseline among others presented to the ED early today via EMS due to increased confusion, shortness of breath, and wheezing. Has VNA the home following discharge on 02/14 for ventral hernia repair. Postoperatively developed confusion which has persisted and not improved per family. Her granddaughter states that she does have some possible mild dementia at baseline but the confusion is much more marked with great fluctuations in mood ranging from giddiness to fearfulness. Today, she was pulling off her O2 and desatting to around 80%. Her granddaughter reports sob and audible wheezing. NO fevers, chills, abd pain, n/v, diarrhea, erythema or drainage from incision, lightheadedness, palpitations, or chest pain. No urinary symptoms. In the ED, VSS, no hypoxia on 2L supplemental O2 (baseline 1.5L). There is a leukocytosis of 12.9. Renal function normal, lytes normal except mag 1.2. Trop 12.8. BNP 319. Ammonia level normal. VBG reassuring, no acute hypercapnia. Head CT negative for any acute intracranial abnormality but did show moderate chronic microangiopathy. CXR shows mild vascular congestion and cardiomegaly. In the ED, given 40mg IV lasix with improvement in WOB as well as IV mag and albuterol neb. Review of Systems Review of Systems: Yes Unobtainable due to mental status [facility] Medical History Unstable angina URI (upper respiratory infection) Mass of right kidney NADEGE (generalized anxiety disorder) GERD (gastroesophageal reflux disease) Decompensated heart failure HTN (hypertension) Arthritis Insulin dependent type 1 diabetes mellitus Foot ulcer Fibromyalgia Coronary artery disease COPD (chronic obstructive pulmonary disease) Pacemaker Afib Family History Father No problems noted. Mother No problems noted. Surgical History Hx laparoscopic cholecystectomy H/O vein stripping Tubal ligation status History of cataract surgery History of pacemaker Social History Household Members: Family Household Members Other:: son stays with her, family nearby Housing: House Do you presently have visiting nurse or other home services: Yes Alcohol intake: former Patient Tobacco Use Status: Never used Tobacco Smoked in Last 30 Days: No e-Cigarette/Vaping Use: Never Used Second Hand Smoke Exposure: No Use of substances other than those prescribed or required for medical reasons: No Advance Directives: Yes Advance Directives on File: Yes Advance Directives Date on File: 06/17/20 service: No Current occupational status: retired and disabled Cognitive needs: Yes Hearing needs: No Vision needs: Yes Meds Allergies Allergy/AdvReac Type Severity Reaction Status Date / Time dapagliflozin [From [facility]] Allergy Unknown yeast Verified 02/07/23 12:38 infection metformin Allergy Unknown Diarrhea Verified 02/07/23 12:38 amitriptyline AdvReac Intermediate Anxiety Verified 02/07/23 12:38 clindamycin AdvReac Mild Itching Verified 02/07/23 12:38 Active Medications: Current Medications Acetaminophen (Acetaminophen 325 Mg Tablet) 650 mg PO Q6H PRN PRN Reason: Pain, Mild (Pain Scale 1-3) Albuterol Sulfate (Albuterol Sulfate 90 Mcg 8 Gm Inhaler) 2 puff INHALE Q6H PRN PRN Reason: bronchospasm Amitriptyline HCl (Amitriptyline Hcl 25 Mg Tablet) 12.5 mg PO BEDTIME [facility] Atenolol (Atenolol 50 Mg Tablet) 50 mg PO DAILY [facility]; Protocol Colchicine (Colchicine 0.6 Mg Tablet) 0.6 mg PO DAILY [facility] Dextrose (Dextrose 50 % 25 Gm/50 Ml Syringe) 25 gm IVPUSH Q15M PRN; Protocol PRN Reason: per Hypoglycemia Standing Ord. Docusate Sodium (Docusate Sodium 100 Mg Capsule) 100 mg PO DAILY PRN PRN Reason: Constipation Docusate Sodium (Docusate Sodium 100 Mg Capsule) 100 mg PO DAILY [facility] Enoxaparin Sodium (Enoxaparin Sodium 40 Mg/0.4 Ml Syringe) 40 mg SUBCUT Q24H [facility] Furosemide (Furosemide 40 Mg/4 Ml Vial) 40 mg IVPUSH DAILY [facility]; Protocol Gabapentin (Gabapentin 100 Mg Capsule) 100 mg PO BID [facility] Glucose (Glucose Gel 15 Gm Gel..Gram.) 15 gm PO Q15M PRN; Protocol PRN Reason: per Hypoglycemia Standing Ord. Insulin Human Lispro (Insulin Lispro 100 Unit/Ml 3 Ml Vial) 0 unit SUBCUT QIDACHS [facility]; Protocol Isosorbide Mononitrate (Isosorbide Mononitrate 30 Mg Tab.Er.24h) 30 mg PO DAILY [facility]; Protocol Losartan Potassium (Losartan Potassium 50 Mg Tablet) 100 mg PO DAILY [facility]; Protocol Non-Formulary Medication (Flecainide) 100 mg PO BID [facility] Non-Formulary Medication (Insulin Degludec [Tresiba Flextouch U-100]) 38 unit SUBCUT BID [facility] Non-Formulary Medication (Lidocaine) 1 patch TOPICAL DAILY PRN PRN Reason: back pain Non-Formulary Medication (Pantoprazole) 40 mg PO DAILY@0630 [facility] Non-Formulary Medication (Simvastatin) 40 mg PO BEDTIME [facility] Ondansetron HCl (Ondansetron Hcl 4 Mg/2 Ml Vial) 4 mg IVPUSH Q8H PRN PRN Reason: Nausea and Vomiting Oxycodone HCl (Oxycodone Hcl Immed Release 5 Mg Tablet) 5 mg PO BID [facility] Polyethylene Glycol (Polyethylene Glycol 3350 17 Gm Powd.Pack) 17 gm PO DAILY [facility] Senna (Sennosides 8.6 Mg Tablet) 8.6 mg PO BID [facility] Sitagliptin Phosphate (Sitagliptin Phosphate 50 Mg Tablet) 50 mg PO DAILY [facility] Sodium Chloride (0.9 % Sodium Chloride Flush 3 Ml Syringe) 3 ml IVFLUSH QSHIFT [facility] Home Medications Medication Instructions Recorded Confirmed Last Taken Type blood sugar diagnostic #10 ea 03/12/20 02/17/23 11/30/22 History docusate sodium 100 mg capsule 100 mg PO DAILY 09/10/22 02/17/23 11/30/22 History insulin aspart U-100 100 unit/mL See Protocol subcut TIDAC PRN 09/10/22 02/17/23 Unknown History (3 mL) subcutaneous pen (Novolog Hyperglycemia FlexPen U-100 Insulin aspart) albuterol sulfate 90 mcg/actuation 2 puff PO Q6H PRN bronchospasm 12/01/22 02/17/23 Unknown History aerosol inhaler insulin degludec 100 unit/mL (3 50 unit subcut BID 12/01/22 02/17/23 11/30/22 History mL) subcutaneous pen (Tresiba FlexTouch U-100 insulin) pantoprazole 40 mg tablet,delayed 40 mg PO DAILY@0630 12/01/22 02/17/23 11/30/22 History release polyethylene glycol 3350 17 gram 17 g PO DAILY 12/01/22 02/17/23 11/30/22 History oral powder packet (Miralax) sennosides 8.6 mg tablet (Senna 8.6 mg PO BID 12/01/22 02/17/23 11/30/22 History Lax) furosemide 40 mg tablet 40 mg PO DAILY 02/17/23 02/17/23 Unknown History simvastatin 40 mg tablet 40 mg PO BEDTIME 02/17/23 02/17/23 Unknown History Physical Exam Vital Signs and Narrative: Vital Signs: Last Vital Signs Temp 98.8 F 02/17/23 10:41 Pulse 80 02/17/23 13:05 Resp 18 02/17/23 13:05 BP 153/54 H 02/17/23 13:05 Pulse Ox 96 02/17/23 13:05 O2 Del Method Nasal Cannula 02/17/23 13:05 O2 Flow Rate 2 02/17/23 13:05 Oxygen Flow Rate 3 02/17/23 10:41 BMI result Body Mass Index 45.0 Constitutional - Awake and Alert, No apparent distress Eyes - PERRLA, EOMI Cardiovascular - S1S2, RRR, 1+ BLE edema Respiratory - Normal lung expansion, Normal respiratory effort, No respiratory distress, scattered expiratory wheezing bilaterally Gastrointestinal - NT / ND; +BS; No rebound or guarding Extremities - no calf tenderness bilaterally, no swelling Skin - Warm/Dry Neurological - Alert & disoriented, giddy Results Labs 02/17/23 11:18 02/17/23 11:18 Labs: Laboratory Results - last 24 hr 02/17/23 02/17/23 02/17/23 11:18 11:19 11:31 MCV 88.1 MCH 28.4 MCHC 32.2 RDW 15.4 Plt Count 387 D MPV 9.8 Immature Gran % (Auto) 1.1 H Neut % (Auto) 82.1 H Lymph % (Auto) 10.4 L [place] % (Auto) 5.4 Eos % (Auto) 0.9 Baso % (Auto) 0.1 Lymph # (Auto) 1.4 [place] # (Auto) 0.7 Eos # (Auto) 0.1 Baso # (Auto) 0.0 Abs Immat Gran (auto) 0.14 H Absolute Neuts (auto) 10.6 H Absolute Nucleated RBC 0.000 Nucleated RBC % (auto) 0.0 VBG pH 7.50 H VBG pCO2 47 VBG pO2 62 VBG HCO3 37 H VBG O2 Saturation 89.0 VBG Base Excess 12.3 Anion Gap 21 H Estim Creat Clear Calc 99.6 Estimated GFR > 60 Random Glucose 183 H Calcium 10.5 H Magnesium 1.2 L* Total Bilirubin 0.6 Direct Bilirubin 0.2 AST 14 ALT 7 Alkaline Phosphatase 84 Ammonia 35 B-Natriuretic Peptide 319 H Total Protein 7.5 Albumin 3.6 Lipase 17 TSH 0.83 Urine Color Urine Appearance Urine pH Ur Specific [place] Urine Protein Urine Glucose (UA) Urine Ketones Urine Blood Urine Nitrite Ur Leukocyte Esterase Urine RBC Urine WBC Ur Squamous Epith Cells Urine Bacteria Hyaline Casts COVID-19 ([facility]) COVID-19 Clin Com 02/17/23 02/17/23 11:41 13:04 MCV MCH MCHC RDW Plt Count MPV Immature Gran % (Auto) Neut % (Auto) Lymph % (Auto) [place] % (Auto) Eos % (Auto) Baso % (Auto) Lymph # (Auto) [place] # (Auto) Eos # (Auto) Baso # (Auto) Abs Immat Gran (auto) Absolute Neuts (auto) Absolute Nucleated RBC Nucleated RBC % (auto) VBG pH VBG pCO2 VBG pO2 VBG HCO3 VBG O2 Saturation VBG Base Excess Anion Gap Estim Creat Clear Calc Estimated GFR Random Glucose Calcium Magnesium Total Bilirubin Direct Bilirubin AST ALT Alkaline Phosphatase Ammonia B-Natriuretic Peptide Total Protein Albumin Lipase TSH Urine Color Yellow Urine Appearance Clear Urine pH 7.5 Ur Specific [place] 1.010 Urine Protein 30 (1+) H Urine Glucose (UA) Negative Urine Ketones Negative Urine Blood Negative Urine Nitrite Negative Ur Leukocyte Esterase Trace H Urine RBC 0-2 Urine WBC 6-10 H Ur Squamous Epith Cells 0-2 Urine Bacteria None Seen Hyaline Casts 0-2 COVID-19 ([facility]) Negative COVID-19 Clin Com See Note Imaging Radiologist's Impressions: Impressions Chest X-Ray 02/17/23 11:31 IMPRESSION: Mild vascular congestion and cardiomegaly Head CT 02/17/23 12:31 IMPRESSION: 1. No evidence of acute intracranial hemorrhage or edematous territorial infarction. 2. Moderate underlying microangiopathy and generalized cerebral volume loss. Assessment and Plan (1) Toxic encephalopathy: Status: Acute (2) CHF (congestive heart failure): Qualifiers: Heart failure chronicity: acute on chronic Heart failure type: unspecified Qualified Code(s): I50.9 - Heart failure, unspecified Status: Acute (3) Hypomagnesemia: Status: Acute Plan 76 year old female with history type 2 diabetes, renal mass, COPD with chronic hypoxic respiratory failure on 1.5L supplemental O2 at baseline, CHF unspecified EF, hypertension, GERD, coronary artery disease, fibromyalgia, diabetic polyneuropathy, chronic low back pain, hyperlipidemia, paroxysmal atrial fibrillation anticoagulated on flecainide no longer on pradaxa for anticoagulation, bipolar disorder, and balance disorder ambulates with walker at baseline among others admitted for mild chf exerbation and toxic encephalopathy. #Mild CHF exacerbation -cardiac wheezing auscultated bilaterally, elevated BNP, CXR with mild pulmonary vascular congestion -40 mg IV Lasix daily -strict I&O -cardiac diet -daily weights -echocardiogram ordered # acute toxic metabolic encephalopathy -likely multifactorial related anesthesia, narcotic use, gabapentin, amitriptyline use -decrease gabapentin to 100 mg b.i.d., decrease amitriptyline to 12.5 mg daily. Hold trazodone -Likely has undiagnosed degree of cognitive impairment at baseline give CT head showing moderate chronic microangiopathy -Nomral ammonia, CO2 baseline, renal funtional, UA normal #Hypomagnesemia -repleted, follow mag #insulin dependent Type 2 diabetes -dose adjusted basal insulin -humalog on sliding scale -diabetic diet -POC glucose # hypertension -reasonably controlled continue home meds # paroxysmal atrial fibrillation -pacemaker in place -no longer on Pradaxa -continue flecainide and atenolol # COPD with chronic hypoxemic respiratory failure -no acute exacerbation, continue home inhalers -continue supplemental O2 # CAD/HLD -continue statin, isosorbide, beta-tara # diabetic polyneuropathy -continue gabapentin DVT prophylaxis-lovenox Full code Patient requires inpatient stay of at least 2 midnights for management of CHF exacerbation with acute toxic metabolic encephalopathy requiring IV diuretics and close monitoring of mentation as well as fluid status Time Spent With Patient Time: Total time managing care of this patient today ____ minutes. Quality Stroke Does the patient have a stroke diagnosis?: No VTE Prior VTE?: No VTE Risk Level:: Medical - moderate - high VTE Device Contraindication: Treatment Not Indicated VTE Drug Contraindication: N/A - Med Ordered
[2023-02-17 15:48] VITALS: BP 133/53; PULSE 80; RESP 24; O2SAT 98
--- NOTE | 2023-02-17 16:45 | PC.NURSE ---
Report given to accepting unit
[2023-02-17 17:14] VITALS: BP 152/74; PULSE 80; RESP 18; TEMP 36.1; O2SAT 100
[2023-02-17 17:30] LABS: Glucose, Whole Blood 167 mg/dL (60-115)
[2023-02-17 19:41] VITALS: BP 161/68; PULSE 79; RESP 20; TEMP 36; O2SAT 100
[2023-02-18] VITALS: BP 142/71; PULSE 80; RESP 18; TEMP 36; O2SAT 98
[2023-02-18 05:58] LABS: MANUAL DIFF FLAG NO
[2023-02-18 06:00] VITALS: BMI 43.7
[2023-02-18 06:05] LABS: Basophils Percent Auto 0.3 % (0-2); Eosinophils Absolute Auto 0.2 X10*3/uL (0.0-0.4); Eosinophils Percent Auto 1.9 % (0-4); Hematocrit 37.1 % (37.0-47.0); Hemoglobin 11.6 g/dl (12.0-16.0); Imm Gran Abs Auto 0.09 X10*3/uL (0.00-0.03); Lymphocytes Absolute Auto 2.5 X10*3/uL (1.2-4.9); Lymphocytes Percent Auto 26.4 % (20-40); Mean Corpuscular HGB Conc 31.3 g/dl (31.0-35.0); Mean Corpuscular Hemoglobin 28.2 pg (27.0-33.0); Mean Platelet Volume 9.6 fL (9.4-12.3); Monocytes Absolute Auto 0.8 X10*3/uL (0.1-1.2); Monocytes Percent Auto 8.6 % (2-11); Neutrophils Absolute Auto 5.7 x10*3/uL (2.0-8.3); Neutrophils Percent Auto 61.8 % (45-73); Platelet Count 319 X10*3/uL (160-400); Red Blood Count 4.12 X10*6/uL (4.20-5.50); Red Cell Distribution Width 15.2 % (11.0-16.0); White Blood Count 9.3 X10*3/uL (4.8-10.8)
[2023-02-18 06:24] LABS: B Type Natriuretic Peptide 589 pg/mL (<100)
[2023-02-18 06:29] LABS: Anion Gap 17 (12-20); Blood Urea Nitrogen 10 mg/dL (9-16); Calcium 9.5 mg/dL (8.4-10.2); Carbon Dioxide 31 mmol/L (22-29); Chloride 99 mmol/L (96-108); Creatinine Clr Calc Pharmacy 103.1; Estimated Glomerular Filt Rate > 60; Glucose Random 115 mg/dL (60-115); Magnesium 1.4 mg/dL (1.6-2.6); Potassium 3.4 mmol/L (3.3-5.1); Sodium 144 mmol/L (135-145)
[2023-02-18 07:02] VITALS: BP 160/70; PULSE 80; RESP 16; TEMP 36.1; O2SAT 99
[2023-02-18 07:12] LABS: Glucose, Whole Blood 121 mg/dL (60-115)
[2023-02-18 12:28] VITALS: BP 153/70; PULSE 101; RESP 15; TEMP 36.6; O2SAT 98
--- NOTE | 2023-02-18 12:28 | HO.PM.IMPN ---
Subjective Subjective Date of Service: 02/18/23 Interval History: Seen and evaluated More alert and interactive Still reporting mild dyspnea No other events Review of Systems Review of Systems: Yes all other systems are reviewed and are negative Physical Exam Vital Signs: Vital Signs: Last Vital Signs Temp 96.9 F 02/18/23 07:02 Pulse 80 02/18/23 07:02 Resp 16 02/18/23 07:02 BP 160/70 H 02/18/23 07:02 Pulse Ox 99 02/18/23 07:02 O2 Del Method Nasal Cannula 02/18/23 07:02 O2 Flow Rate 2.5 02/18/23 07:02 Oxygen Flow Rate 3 02/17/23 10:41 BMI result Body Mass Index 43.7 Const: Other: Constitutional : Awake, interactive, not in distress Neck : Normal inspection, Supple Cardiovascular : RRR, no JVP, +1 lower extremity edema Respiratory : good bilateral air entry, no crackles, wheezes or rhonchi Gastrointestinal: soft, lax, Normal bowel sounds, Non tender Skin : Warm, Dry Neurological : Alert & oriented x2, No focal deficit Objective Data Active Medications Acetaminophen (Acetaminophen 325 Mg Tablet) 650 mg PO Q6H PRN PRN Reason: Pain, Mild (Pain Scale 1-3) Last Admin: 02/18/23 01:38 Dose: 650 mg Documented By: POLY Albuterol Sulfate (Albuterol Sulfate 90 Mcg 8 Gm Inhaler) 2 puff INHALE Q6H PRN PRN Reason: bronchospasm Amitriptyline HCl (Amitriptyline Hcl 25 Mg Tablet) 12.5 mg PO BEDTIME [facility] Last Admin: 02/17/23 21:02 Dose: 12.5 mg Documented By: JEWEL Atenolol (Atenolol 50 Mg Tablet) 50 mg PO DAILY [facility]; Protocol Atorvastatin Calcium (Atorvastatin Calcium 20 Mg Tablet) 20 mg PO BEDTIME [facility] Last Admin: 02/17/23 21:03 Dose: 20 mg Documented By: JEWEL Colchicine (Colchicine 0.6 Mg Tablet) 0.6 mg PO DAILY [facility] Dextrose (Dextrose 50 % 25 Gm/50 Ml Syringe) 25 gm IVPUSH Q15M PRN; Protocol PRN Reason: per Hypoglycemia Standing Ord. Docusate Sodium (Docusate Sodium 100 Mg Capsule) 100 mg PO DAILY PRN PRN Reason: Constipation Docusate Sodium (Docusate Sodium 100 Mg Capsule) 100 mg PO DAILY [facility] Enoxaparin Sodium (Enoxaparin Sodium 40 Mg/0.4 Ml Syringe) 40 mg SUBCUT Q24H [facility] Last Admin: 02/17/23 17:17 Dose: Not Given Documented By: EDMAR Non-Admin Reason: Not In Room Flecainide Acetate (Flecainide Acetate 50 Mg Tablet) 100 mg PO BID [facility] Last Admin: 02/17/23 21:03 Dose: 100 mg Documented By: JEWEL Furosemide (Furosemide 40 Mg/4 Ml Vial) 40 mg IVPUSH DAILY [facility]; Protocol Gabapentin (Gabapentin 100 Mg Capsule) 100 mg PO BEDTIME [facility] Glucose (Glucose Gel 15 Gm Gel..Gram.) 15 gm PO Q15M PRN; Protocol PRN Reason: per Hypoglycemia Standing Ord. Insulin Glargine (Insulin Glargine,Hum.Rec.Anlog 100 Unit/Ml 10 Ml Vial) 26 unit SUBCUT BID [facility] Last Admin: 02/17/23 21:04 Dose: 26 unit Documented By: JEWEL Insulin Human Lispro (Insulin Lispro 100 Unit/Ml 3 Ml Vial) 0 unit SUBCUT QIDACHS [facility]; Protocol Last Admin: 02/18/23 11:16 Dose: Not Given Documented By: NI Non-Admin Reason: No Insulin Coverage Isosorbide Mononitrate (Isosorbide Mononitrate 30 Mg Tab.Er.24h) 30 mg PO DAILY [facility]; Protocol Lidocaine (Lidocaine 4 % Patch Adh..Patch) 1 patch TRANSDERMA DAILY PRN PRN Reason: back pain Losartan Potassium (Losartan Potassium 50 Mg Tablet) 100 mg PO DAILY [facility]; Protocol Omeprazole (Omeprazole 20 Mg Capsule.Dr) 20 mg PO DAILY@0630 [facility] Last Admin: 02/18/23 06:32 Dose: Not Given Documented By: POLY Non-Admin Reason: See Note Comments: held cannot crush, delayed swallow Ondansetron HCl (Ondansetron Hcl 4 Mg/2 Ml Vial) 4 mg IVPUSH Q8H PRN PRN Reason: Nausea and Vomiting Oxycodone HCl (Oxycodone Hcl Immed Release 5 Mg Tablet) 5 mg PO BID [facility] Last Admin: 02/17/23 21:03 Dose: 5 mg Documented By: JEWEL Polyethylene Glycol (Polyethylene Glycol 3350 17 Gm Powd.Pack) 17 gm PO DAILY [facility] Senna (Sennosides 8.6 Mg Tablet) 8.6 mg PO BID [facility] Last Admin: 02/17/23 21:02 Dose: 8.6 mg Documented By: JEWEL Sitagliptin Phosphate (Sitagliptin Phosphate 50 Mg Tablet) 50 mg PO DAILY [facility] Sodium Chloride (0.9 % Sodium Chloride Flush 3 Ml Syringe) 3 ml IVFLUSH QSHIFT [facility] Last Admin: 02/18/23 09:51 Dose: 3 ml Documented By: NI Labs 02/18/23 05:45 02/18/23 05:45 Labs: Laboratory Results - last 24 hr 02/17/23 02/17/23 02/17/23 13:04 17:26 20:08 MCV MCH MCHC RDW Plt Count MPV Immature Gran % (Auto) Neut % (Auto) Lymph % (Auto) [place] % (Auto) Eos % (Auto) Baso % (Auto) Lymph # (Auto) [place] # (Auto) Eos # (Auto) Baso # (Auto) Abs Immat Gran (auto) Absolute Neuts (auto) Absolute Nucleated RBC Nucleated RBC % (auto) Anion Gap Estim Creat Clear Calc Estimated GFR POC Glucose 167 H 158 H Random Glucose Calcium Magnesium B-Natriuretic Peptide Urine Color Yellow Urine Appearance Clear Urine pH 7.5 Ur Specific [place] 1.010 Urine Protein 30 (1+) H Urine Glucose (UA) Negative Urine Ketones Negative Urine Blood Negative Urine Nitrite Negative Ur Leukocyte Esterase Trace H Urine RBC 0-2 Urine WBC 6-10 H Ur Squamous Epith Cells 0-2 Urine Bacteria None Seen Hyaline Casts 0-2 02/18/23 02/18/23 02/18/23 05:45 07:06 10:58 MCV 90.0 MCH 28.2 MCHC 31.3 RDW 15.2 Plt Count 319 MPV 9.6 Immature Gran % (Auto) 1.0 H Neut % (Auto) 61.8 Lymph % (Auto) 26.4 [place] % (Auto) 8.6 Eos % (Auto) 1.9 Baso % (Auto) 0.3 Lymph # (Auto) 2.5 [place] # (Auto) 0.8 Eos # (Auto) 0.2 Baso # (Auto) 0.0 Abs Immat Gran (auto) 0.09 H Absolute Neuts (auto) 5.7 Absolute Nucleated RBC 0.000 Nucleated RBC % (auto) 0.0 Anion Gap 17 Estim Creat Clear Calc 103.1 Estimated GFR > 60 POC Glucose 121 H 149 H Random Glucose 115 Calcium 9.5 D Magnesium 1.4 L* B-Natriuretic Peptide 589 H Urine Color Urine Appearance Urine pH Ur Specific [place] Urine Protein Urine Glucose (UA) Urine Ketones Urine Blood Urine Nitrite Ur Leukocyte Esterase Urine RBC Urine WBC Ur Squamous Epith Cells Urine Bacteria Hyaline Casts Microbiology Microbiology Results: Microbiology 02/17/23 Unknown Urine Culture - Final Urine clean catch - Urine anderson top Assessment and Plan (1) Toxic encephalopathy: Status: Acute (2) Hypomagnesemia: Status: Acute (3) CHF (congestive heart failure): Status: Acute Plan 76 year old female with history type 2 diabetes, renal mass, COPD with chronic hypoxic respiratory failure on 1.5L supplemental O2 at baseline, CHF unspecified EF, hypertension, GERD, coronary artery disease, fibromyalgia, diabetic polyneuropathy, chronic low back pain, hyperlipidemia, paroxysmal atrial fibrillation anticoagulated on flecainide no longer on pradaxa for anticoagulation, bipolar disorder, and balance disorder ambulates with walker at baseline among others admitted for mild chf exerbation and toxic encephalopathy. #Acute on chronic diastolic CHF exacerbation Continue 40 mg IV Lasix daily I&O cardiac diet echocardiogram ordered, might be done as OP # acute toxic metabolic encephalopathy Seems better, more alert multifactorial related to narcotic use, gabapentin, amitriptyline use gabapentin to 100 mg bedtime, decrease amitriptyline to 12.5 mg bedtime. Hold trazodone Likely has undiagnosed degree of cognitive impairment at baseline give CT head showing moderate chronic microangiopathy #Hypomagnesemia repleted, follow mg #insulin dependent Type 2 diabetes basal insulin sliding scale diabetic diet # hypertension controlled continue home meds # paroxysmal atrial fibrillation pacemaker in place no longer on Pradaxa continue flecainide and atenolol # COPD with chronic hypoxemic respiratory failure no acute exacerbation, continue home inhalers continue supplemental O2 # CAD/HLD continue statin, isosorbide, beta-tara # diabetic polyneuropathy continue gabapentin DVT prophylaxis lovenox Full code Patient requires inpatient stay of overnight for management of CHF exacerbation with acute toxic metabolic encephalopathy requiring IV diuretics and close monitoring of mentation as well as fluid status Time Spent With Patient Time: Total time managing care of this patient today ____ minutes. Quality Stroke Does the patient have a stroke diagnosis?: No VTE Prior VTE?: No VTE Risk Level:: Medical - moderate - high VTE Device Contraindication: Treatment Not Indicated VTE Drug Contraindication: N/A - Med Ordered
--- NOTE | 2023-02-18 14:45 | MHC.CM.PN ---
Addendum entered by Shilpi Chavis 02/18/23 15:19: [facility] CONFIRMS PT IS ACTIVE WITH [facility] Original Note: PT READMITTED AFTER BEING DISCHARGED ON 02/14/23 PT LIVES WITH HER SON AND HAS DAILY TECHNOLOGY RESOURCE TEACHER CARE SHE IS ALSO ACTIVE WITH [facility] SHE HAS A WALKER, WHEEL CHAIR AND LIFT RECLINER PTS DAUGHTER ALSO INDICATED SHE BOUGHT HER A HOSPITAL BED DURING HER LAST ADMISSION SHE HAS A HCP ON FILE PCP: [facility] DELIVERED DCP: HOME WITH RESUMPTION OF TECHNOLOGY RESOURCE TEACHER, [facility] AND FAMILY SUPPORT
[2023-02-18 15:19] VITALS: BP 173/80; PULSE 81; TEMP 36.6; O2SAT 97
[2023-02-18 19:57] VITALS: BP 142/65; PULSE 81; RESP 16; TEMP 35.9; O2SAT 98
[2023-02-18 20:08] LABS: Glucose, Whole Blood 126 mg/dL (60-115)
[2023-02-18 23:51] VITALS: BP 118/58; PULSE 79; RESP 18; TEMP 36.6; O2SAT 97
[2023-02-19 06:00] VITALS: BMI 41.4
[2023-02-19 07:02] LABS: B Type Natriuretic Peptide 357 pg/mL (<100)
[2023-02-19 07:03] LABS: Anion Gap 14 (12-20); Blood Urea Nitrogen 11 mg/dL (9-16); Calcium 9.6 mg/dL (8.4-10.2); Carbon Dioxide 34 mmol/L (22-29); Chloride 95 mmol/L (96-108); Creatinine Clr Calc Pharmacy 90.4; Estimated Glomerular Filt Rate > 60; Glucose Random 120 mg/dL (60-115); Potassium 3.1 mmol/L (3.3-5.1); Sodium 140 mmol/L (135-145)
[2023-02-19 07:16] VITALS: PULSE 80; RESP 16; TEMP 36.7; O2SAT 100
[2023-02-19 07:31] LABS: Magnesium 1.4 mg/dL (1.6-2.6)
--- NOTE | 2023-02-19 10:53 | HO.PM.IMPN ---
Subjective Subjective Date of Service: 02/19/23 Interval History: Seen and evaluated Patient more confused today Still reporting mild dyspnea No other events Review of Systems Review of Systems: Yes all other systems are reviewed and are negative Physical Exam Vital Signs: Vital Signs: Last Vital Signs Temp 98.0 F 02/19/23 07:16 Pulse 80 02/19/23 07:16 Resp 16 02/19/23 07:16 BP 118/58 L 02/18/23 23:51 Pulse Ox 100 02/19/23 07:16 O2 Del Method Nasal Cannula 02/19/23 07:16 O2 Flow Rate 2 02/19/23 07:16 Oxygen Flow Rate 3 02/17/23 10:41 BMI result Body Mass Index 41.4 Const: Other: Constitutional : Awake, interactive, not in distress Neck : Normal inspection, Supple Cardiovascular : RRR, no JVP, +1 lower extremity edema Respiratory : good bilateral air entry, no crackles, wheezes or rhonchi Gastrointestinal: soft, lax, Normal bowel sounds, Non tender Skin : Warm, Dry Neurological : Alert & disoriented x3, No focal deficit Objective Data Active Medications Acetaminophen (Acetaminophen 325 Mg Tablet) 650 mg PO Q6H PRN PRN Reason: Pain, Mild (Pain Scale 1-3) Last Admin: 02/18/23 15:22 Dose: 650 mg Documented By: ROSHAN Albuterol Sulfate (Albuterol Sulfate 90 Mcg 8 Gm Inhaler) 2 puff INHALE Q6H PRN PRN Reason: bronchospasm Amitriptyline HCl (Amitriptyline Hcl 25 Mg Tablet) 12.5 mg PO BEDTIME [facility] Last Admin: 02/18/23 20:48 Dose: 12.5 mg Documented By: IVONE Atenolol (Atenolol 50 Mg Tablet) 50 mg PO DAILY [facility]; Protocol Last Admin: 02/19/23 08:01 Dose: 50 mg Documented By: NICK Atorvastatin Calcium (Atorvastatin Calcium 20 Mg Tablet) 20 mg PO BEDTIME [facility] Last Admin: 02/18/23 20:48 Dose: 20 mg Documented By: IVONE Colchicine (Colchicine 0.6 Mg Tablet) 0.6 mg PO DAILY [facility] Last Admin: 02/19/23 08:03 Dose: 0.6 mg Documented By: NICK Dextrose (Dextrose 50 % 25 Gm/50 Ml Syringe) 25 gm IVPUSH Q15M PRN; Protocol PRN Reason: per Hypoglycemia Standing Ord. Docusate Sodium (Docusate Sodium 100 Mg Capsule) 100 mg PO DAILY PRN PRN Reason: Constipation Docusate Sodium (Docusate Sodium 100 Mg Capsule) 100 mg PO DAILY [facility] Last Admin: 02/19/23 08:01 Dose: 100 mg Documented By: NICK Enoxaparin Sodium (Enoxaparin Sodium 40 Mg/0.4 Ml Syringe) 40 mg SUBCUT Q24H [facility] Last Admin: 02/18/23 15:46 Dose: 40 mg Documented By: IVONE Flecainide Acetate (Flecainide Acetate 50 Mg Tablet) 100 mg PO BID [facility] Last Admin: 02/19/23 08:02 Dose: 100 mg Documented By: NICK Furosemide (Furosemide 40 Mg/4 Ml Vial) 40 mg IVPUSH DAILY [facility]; Protocol Last Admin: 02/19/23 08:57 Dose: 40 mg Documented By: NICK Gabapentin (Gabapentin 100 Mg Capsule) 100 mg PO BEDTIME [facility] Last Admin: 02/18/23 20:48 Dose: 100 mg Documented By: IVONE Glucose (Glucose Gel 15 Gm Gel..Gram.) 15 gm PO Q15M PRN; Protocol PRN Reason: per Hypoglycemia Standing Ord. Magnesium Sulfate (Magnesium Sulfate/H2o) 2 gm in 50 mls @ 25 mls/hr IV Q2H [facility] Stop: 02/19/23 14:29 Insulin Glargine (Insulin Glargine,Hum.Rec.Anlog 100 Unit/Ml 10 Ml Vial) 26 unit SUBCUT BID [facility] Last Admin: 02/19/23 09:57 Dose: 26 unit Documented By: NICK Insulin Human Lispro (Insulin Lispro 100 Unit/Ml 3 Ml Vial) 0 unit SUBCUT QIDACHS [facility]; Protocol Last Admin: 02/19/23 08:56 Dose: Not Given Documented By: NICK Non-Admin Reason: No Insulin Coverage Isosorbide Mononitrate (Isosorbide Mononitrate 30 Mg Tab.Er.24h) 30 mg PO DAILY [facility]; Protocol Last Admin: 02/19/23 08:01 Dose: 30 mg Documented By: NICK Lidocaine (Lidocaine 4 % Patch Adh..Patch) 1 patch TRANSDERMA DAILY PRN PRN Reason: back pain Losartan Potassium (Losartan Potassium 50 Mg Tablet) 100 mg PO DAILY [facility]; Protocol Last Admin: 02/19/23 08:01 Dose: 100 mg Documented By: NICK Magnesium Oxide (Magnesium Oxide 400 Mg Tablet) 800 mg PO DAILY [facility] Last Admin: 02/19/23 08:01 Dose: 800 mg Documented By: NICK Omeprazole (Omeprazole 20 Mg Capsule.Dr) 20 mg PO DAILY@0630 [facility] Last Admin: 02/19/23 06:01 Dose: Not Given Documented By: POLY Non-Admin Reason: Patient Refused Ondansetron HCl (Ondansetron Hcl 4 Mg/2 Ml Vial) 4 mg IVPUSH Q8H PRN PRN Reason: Nausea and Vomiting Oxycodone HCl (Oxycodone Hcl Immed Release 5 Mg Tablet) 5 mg PO BID [facility] Last Admin: 02/19/23 08:02 Dose: 5 mg Documented By: NICK Polyethylene Glycol (Polyethylene Glycol 3350 17 Gm Powd.Pack) 17 gm PO DAILY [facility] Last Admin: 02/19/23 08:15 Dose: 17 gm Documented By: NICK Senna (Sennosides 8.6 Mg Tablet) 8.6 mg PO BID [facility] Last Admin: 02/19/23 08:01 Dose: 8.6 mg Documented By: NICK Sitagliptin Phosphate (Sitagliptin Phosphate 50 Mg Tablet) 50 mg PO DAILY [facility] Last Admin: 02/19/23 08:01 Dose: 50 mg Documented By: NICK Sodium Chloride (0.9 % Sodium Chloride Flush 3 Ml Syringe) 3 ml IVFLUSH QSHIFT [facility] Last Admin: 02/19/23 08:03 Dose: 3 ml Documented By: NICK Labs 02/18/23 05:45 02/19/23 06:09 Labs: Laboratory Results - last 24 hr 02/18/23 02/18/23 02/18/23 10:58 16:10 20:01 Hold Purple Top Anion Gap Estim Creat Clear Calc Estimated GFR POC Glucose 149 H 164 H 126 H Random Glucose Calcium Magnesium B-Natriuretic Peptide 02/19/23 02/19/23 02/19/23 06:09 06:09 07:25 Hold Purple Top SEE NOTE Anion Gap 14 Estim Creat Clear Calc 90.4 Estimated GFR > 60 POC Glucose 133 H Random Glucose 120 H Calcium 9.6 Magnesium 1.4 L* Cancelled B-Natriuretic Peptide 357 H Microbiology Microbiology Results: Microbiology 02/17/23 Unknown Urine Culture - Final Urine clean catch - Urine anderson top Assessment and Plan (1) Toxic encephalopathy: Status: Acute (2) CHF (congestive heart failure): Status: Acute (3) Hypomagnesemia: Status: Acute Plan 76 year old female with history type 2 diabetes, renal mass, COPD with chronic hypoxic respiratory failure on 1.5L supplemental O2 at baseline, CHF unspecified EF, hypertension, GERD, coronary artery disease, fibromyalgia, diabetic polyneuropathy, chronic low back pain, hyperlipidemia, paroxysmal atrial fibrillation anticoagulated on flecainide no longer on pradaxa for anticoagulation, bipolar disorder, and balance disorder ambulates with walker at baseline among others admitted for mild chf exerbation and toxic encephalopathy. #Acute on chronic diastolic CHF exacerbation Continue 40 mg IV Lasix daily I&O cardiac diet echocardiogram ordered, might be done as OP # acute toxic metabolic encephalopathy fluctuating, worse today multifactorial related to narcotic use, gabapentin, amitriptyline use gabapentin to 100 mg bedtime, decrease amitriptyline to 12.5 mg bedtime. Hold trazodone recurrent reorientation Likely has undiagnosed degree of cognitive impairment at baseline give CT head showing moderate chronic microangiopathy #Hypomagnesemia Low at 1.4 give IV and PO supplement and repeat later # physical deconditioning PT eval #insulin dependent Type 2 diabetes basal insulin sliding scale diabetic diet # hypertension controlled continue home meds # paroxysmal atrial fibrillation pacemaker in place no longer on Pradaxa continue flecainide and atenolol # COPD with chronic hypoxemic respiratory failure no acute exacerbation, continue home inhalers continue supplemental O2 # CAD/HLD continue statin, isosorbide, beta-taar # diabetic polyneuropathy continue gabapentin DVT prophylaxis lovenox Full code Patient requires inpatient stay of overnight for management of CHF exacerbation with acute toxic metabolic encephalopathy requiring IV diuretics and close monitoring of mentation as well as fluid status Time Spent With Patient Time: Total time managing care of this patient today ____ minutes. Quality Stroke Does the patient have a stroke diagnosis?: No VTE Prior VTE?: No VTE Risk Level:: Medical - moderate - high VTE Device Contraindication: Treatment Not Indicated VTE Drug Contraindication: N/A - Med Ordered
[2023-02-19 15:19] VITALS: BP 138/65; PULSE 80; RESP 18; TEMP 36.1; O2SAT 99
[2023-02-19 16:24] LABS: Glucose, Whole Blood 130 mg/dL (60-115)
[2023-02-19 20:17] LABS: Glucose, Whole Blood 195 mg/dL (60-115)
[2023-02-20] VITALS: BP 124/58; PULSE 80; RESP 16; TEMP 35.9; O2SAT 99
[2023-02-20 06:00] VITALS: BMI 41.8
[2023-02-20 06:41] LABS: Anion Gap 15 (12-20); B Type Natriuretic Peptide 165 pg/mL (<100); Blood Urea Nitrogen 11 mg/dL (9-16); Calcium 9.6 mg/dL (8.4-10.2); Carbon Dioxide 33 mmol/L (22-29); Chloride 97 mmol/L (96-108); Creatinine Clr Calc Pharmacy 104.1; Estimated Glomerular Filt Rate > 60; Glucose Random 87 mg/dL (60-115); Magnesium 1.6 mg/dL (1.6-2.6); Potassium 3.3 mmol/L (3.3-5.1); Sodium 142 mmol/L (135-145)
[2023-02-20 07:19] VITALS: BP 147/70; PULSE 81; RESP 18; TEMP 36; O2SAT 97
[2023-02-20 07:21] LABS: Glucose, Whole Blood 87 mg/dL (60-115)
--- NOTE | 2023-02-20 09:01 | MHC.CM.PN ---
Addendum entered by Shilpi Chavis 02/20/23 15:38: OKSANA SPOKE TO PTS DAUGHTER, FE [phone]. FE CONFIRMS SHE ONLY WANTS THE PT TO GO TO STR, SHE STATES SHE WILL NEVER PLACE HER IN LTC SHE KNOWS THAT WOULD BE WORSE FOR HER DEMENTIA, SHE SAYS THE PT HAS CONTINUOUS FAMILY CARE, IT IS JUST DIFFICULT FOR THEM WHEN THE PT IS DE-CONDITIONED LIKE SHE IS CURRENTLY. FE REPORTS [facility] WOULD BE THE PREFERRED SNF SHE IS AWARE REFERRALS WILL BE MADE AND SHE WILL BE CONTACTED WITH BED OFFERS. Addendum entered by Shilpi Chavis 02/20/23 14:04: RAMA LI, GUY MONTANEZ, [facility] AND [facility] ARE FOLLOWING HOWEVER [facility] IS NOT AVAILABLE FOR AUTH TODAY. Original Note: OKSANA INFORMED PT NO LONGER REQUIRES INPT LOC HOWEVER FAMILY WOULD LIKE HER TO GO TO STR TO GET BACK TO THE LEVEL OF FUNCTIONING SHE WAS AT PREVIOUSLY, CM MADE A BROAD REFERRAL PT HAS BEEN DIFFICULT TO PLACE IN THE PAST DUE TO TO SNF CONCERNS THAT SHE WILL BE LTC.
--- NOTE | 2023-02-20 11:20 | HO.PM.IMPN ---
Subjective Subjective Date of Service: 02/20/23 Interval History: Seen and evaluated Patient less confused today, keep flucuating improving dyspnea No other events Review of Systems Review of Systems: Yes all other systems are reviewed and are negative Physical Exam Vital Signs: Vital Signs: Last Vital Signs Temp 96.8 F 02/20/23 07:19 Pulse 81 02/20/23 07:19 Resp 18 02/20/23 07:19 BP 147/70 H 02/20/23 07:19 Pulse Ox 97 02/20/23 07:19 O2 Del Method Nasal Cannula 02/20/23 07:19 O2 Flow Rate 1.5 02/20/23 07:19 Oxygen Flow Rate 3 02/17/23 10:41 BMI result Body Mass Index 41.8 Const: Other: Constitutional : Awake, interactive, not in distress Neck : Normal inspection, Supple Cardiovascular : RRR, no JVP, +1 lower extremity edema Respiratory : good bilateral air entry, no crackles, wheezes or rhonchi Gastrointestinal: soft, lax, Normal bowel sounds, Non tender Skin : Warm, Dry Neurological : Alert & disoriented x3, No focal deficit Objective Data Active Medications Acetaminophen (Acetaminophen 325 Mg Tablet) 650 mg PO Q6H PRN PRN Reason: Pain, Mild (Pain Scale 1-3) Last Admin: 02/19/23 14:49 Dose: 650 mg Documented By: MARK Albuterol Sulfate (Albuterol Sulfate 90 Mcg 8 Gm Inhaler) 2 puff INHALE Q6H PRN PRN Reason: bronchospasm Amitriptyline HCl (Amitriptyline Hcl 25 Mg Tablet) 12.5 mg PO BEDTIME [facility] Last Admin: 02/19/23 20:10 Dose: 12.5 mg Documented By: PAULA Atenolol (Atenolol 50 Mg Tablet) 50 mg PO DAILY [facility]; Protocol Last Admin: 02/20/23 08:24 Dose: 50 mg Documented By: MARK Atorvastatin Calcium (Atorvastatin Calcium 20 Mg Tablet) 20 mg PO BEDTIME [facility] Last Admin: 02/19/23 20:10 Dose: 20 mg Documented By: PAULA Colchicine (Colchicine 0.6 Mg Tablet) 0.6 mg PO DAILY [facility] Last Admin: 02/20/23 08:23 Dose: 0.6 mg Documented By: MARK Dextrose (Dextrose 50 % 25 Gm/50 Ml Syringe) 25 gm IVPUSH Q15M PRN; Protocol PRN Reason: per Hypoglycemia Standing Ord. Docusate Sodium (Docusate Sodium 100 Mg Capsule) 100 mg PO DAILY PRN PRN Reason: Constipation Docusate Sodium (Docusate Sodium 100 Mg Capsule) 100 mg PO DAILY [facility] Last Admin: 02/20/23 08:24 Dose: 100 mg Documented By: MARK Enoxaparin Sodium (Enoxaparin Sodium 40 Mg/0.4 Ml Syringe) 40 mg SUBCUT Q24H [facility] Last Admin: 02/19/23 16:26 Dose: 40 mg Documented By: MARK Flecainide Acetate (Flecainide Acetate 50 Mg Tablet) 100 mg PO BID [facility] Last Admin: 02/20/23 08:23 Dose: 100 mg Documented By: MARK Furosemide (Furosemide 40 Mg/4 Ml Vial) 40 mg IVPUSH DAILY [facility]; Protocol Last Admin: 02/20/23 08:24 Dose: 40 mg Documented By: MARK Gabapentin (Gabapentin 100 Mg Capsule) 100 mg PO BEDTIME [facility] Last Admin: 02/19/23 20:12 Dose: 100 mg Documented By: PAULA Glucose (Glucose Gel 15 Gm Gel..Gram.) 15 gm PO Q15M PRN; Protocol PRN Reason: per Hypoglycemia Standing Ord. Insulin Glargine (Insulin Glargine,Hum.Rec.Anlog 100 Unit/Ml 10 Ml Vial) 26 unit SUBCUT BID [facility] Last Admin: 02/19/23 20:30 Dose: 26 unit Documented By: PAULA Insulin Human Lispro (Insulin Lispro 100 Unit/Ml 3 Ml Vial) 0 unit SUBCUT QIDACHS [facility]; Protocol Last Admin: 02/20/23 07:26 Dose: Not Given Documented By: MARK Non-Admin Reason: No Insulin Coverage Isosorbide Mononitrate (Isosorbide Mononitrate 30 Mg Tab.Er.24h) 30 mg PO DAILY [facility]; Protocol Last Admin: 02/20/23 08:24 Dose: 30 mg Documented By: MARK Lidocaine (Lidocaine 4 % Patch Adh..Patch) 1 patch TRANSDERMA DAILY PRN PRN Reason: back pain Losartan Potassium (Losartan Potassium 50 Mg Tablet) 100 mg PO DAILY [facility]; Protocol Last Admin: 02/20/23 08:23 Dose: 100 mg Documented By: MARK Magnesium Oxide (Magnesium Oxide 400 Mg Tablet) 800 mg PO DAILY [facility] Last Admin: 02/20/23 08:23 Dose: 800 mg Documented By: MARK Omeprazole (Omeprazole 20 Mg Capsule.Dr) 20 mg PO DAILY@0630 [facility] Last Admin: 02/20/23 05:25 Dose: 20 mg Documented By: CAMORALB Ondansetron HCl (Ondansetron Hcl 4 Mg/2 Ml Vial) 4 mg IVPUSH Q8H PRN PRN Reason: Nausea and Vomiting Oxycodone HCl (Oxycodone Hcl Immed Release 5 Mg Tablet) 5 mg PO BID [facility] Last Admin: 02/20/23 08:23 Dose: 5 mg Documented By: MARK Polyethylene Glycol (Polyethylene Glycol 3350 17 Gm Powd.Pack) 17 gm PO DAILY [facility] Last Admin: 02/20/23 08:24 Dose: 17 gm Documented By: MARK Senna (Sennosides 8.6 Mg Tablet) 8.6 mg PO BID [facility] Last Admin: 02/20/23 08:24 Dose: 8.6 mg Documented By: MARK Sitagliptin Phosphate (Sitagliptin Phosphate 50 Mg Tablet) 50 mg PO DAILY [facility] Last Admin: 02/20/23 08:23 Dose: 50 mg Documented By: MARK Sodium Chloride (0.9 % Sodium Chloride Flush 3 Ml Syringe) 3 ml IVFLUSH QSHIFT [facility] Last Admin: 02/20/23 08:24 Dose: 3 ml Documented By: MARK Labs 02/18/23 05:45 02/20/23 06:04 Labs: Laboratory Results - last 24 hr 02/19/23 02/19/23 02/19/23 11:12 15:29 16:20 Anion Gap Estim Creat Clear Calc Estimated GFR POC Glucose 194 H 130 H Random Glucose Calcium Magnesium 2.0 B-Natriuretic Peptide 02/19/23 02/20/23 02/20/23 20:09 06:04 07:14 Anion Gap 15 Estim Creat Clear Calc 104.1 Estimated GFR > 60 POC Glucose 195 H 87 Random Glucose 87 Calcium 9.6 Magnesium 1.6 B-Natriuretic Peptide 165 H Assessment and Plan (1) Toxic encephalopathy: Status: Acute (2) CHF (congestive heart failure): Status: Acute (3) Hypomagnesemia: Status: Acute Plan 76 year old female with history type 2 diabetes, renal mass, COPD with chronic hypoxic respiratory failure on 1.5L supplemental O2 at baseline, CHF unspecified EF, hypertension, GERD, coronary artery disease, fibromyalgia, diabetic polyneuropathy, chronic low back pain, hyperlipidemia, paroxysmal atrial fibrillation anticoagulated on flecainide no longer on pradaxa for anticoagulation, bipolar disorder, and balance disorder ambulates with walker at baseline among others admitted for mild chf exerbation and toxic encephalopathy. #Acute on chronic diastolic CHF exacerbation BNP trending down Continue 40 mg IV Lasix daily I&O cardiac diet echocardiogram pending # acute toxic metabolic encephalopathy fluctuating, multifactorial related to narcotic use, gabapentin, amitriptyline use Likely has undiagnosed degree of cognitive impairment at baseline give CT head showing moderate chronic microangiopathy Decrease gabapentin to 100 mg bedtime, decrease amitriptyline to 12.5 mg bedtime. Hold trazodone recurrent reorientation #Hypomagnesemia resolved give IV and PO supplement and repeat later # physical deconditioning PT eval #insulin dependent Type 2 diabetes basal insulin sliding scale diabetic diet # hypertension controlled continue home meds # paroxysmal atrial fibrillation pacemaker in place no longer on Pradaxa continue flecainide and atenolol # COPD with chronic hypoxemic respiratory failure no acute exacerbation, continue home inhalers continue supplemental O2 # CAD/HLD continue statin, isosorbide, beta-tara # diabetic polyneuropathy continue gabapentin DVT prophylaxis lovenox Full code Patient requires inpatient stay of overnight for management of CHF exacerbation with acute toxic metabolic encephalopathy requiring IV diuretics and close monitoring of mentation as well as fluid status Time Spent With Patient Time: Total time managing care of this patient today ____ minutes. Quality Stroke Does the patient have a stroke diagnosis?: No VTE Prior VTE?: No VTE Risk Level:: Medical - moderate - high VTE Device Contraindication: Treatment Not Indicated VTE Drug Contraindication: N/A - Med Ordered
[2023-02-20 11:23] LABS: Glucose, Whole Blood 143 mg/dL (60-115)
[2023-02-20 12:34] VITALS: BMI 41.8
--- NOTE | 2023-02-20 12:44 | MHC.CLN ---
NUTRITION DIET=DIABETIC 2200 KCALS, CARDIAC, PUREE. RECENT SURGERY FOR INCARCERATED VENTRAL HERNIA. NOW WITH CHF EXACERBATION AND TOXIC ENCEPHALOPATHY. INTAKE APPEARS GOOD WITH MOST RECENT MEALS 50-100%. STAGE II WOUND TO COCCYX. ADDING ENSURE MAX BID TO PROMOTE WOUND HEALING. PROVIDES 300 KCALS, 60 G PROTEIN. FOLLOW FOR INTAKE AND WOUND HEALING.
[2023-02-20 15:55] LABS: Glucose, Whole Blood 120 mg/dL (60-115)
--- NOTE | 2023-02-20 17:29 | PC.NURSE ---
flat surfacer jewel at bedside for ECHO and assessment and med pass. Family at bedside.
[2023-02-20 20:36] LABS: Glucose, Whole Blood 115 mg/dL (60-115)
[2023-02-20 23:33] VITALS: BP 127/80; PULSE 80; RESP 17; TEMP 36.4; O2SAT 96
--- NOTE | 2023-02-20 23:42 | PC.NURSE ---
pt c/o being itchy on her abd and back no rash noted. notified pt medicated at 2324 with benadryl 50mg IV.
[2023-02-21 07:36] LABS: Glucose, Whole Blood 93 mg/dL (60-115)
[2023-02-21 07:38] VITALS: BP 145/78; PULSE 80; RESP 18; TEMP 36; O2SAT 98
[2023-02-21 11:38] LABS: Glucose, Whole Blood 163 mg/dL (60-115)
--- NOTE | 2023-02-21 11:38 | PM.DS ---
DS: Providers Provider Date of Service: 02/21/23 Date of admission: 02/17/23 15:12 Primary care physician: Micheal Biggs PA-C DS: Diagnosis Discharge Diagnosis (1) Toxic encephalopathy: Status: Acute (2) CHF (congestive heart failure): Status: Acute (3) Hypomagnesemia: Status: Acute (4) Physical deconditioning: Status: Acute DS: Summary Hospital Course Hospital Course: Admission note HPI 76 year old female with history type 2 diabetes, renal mass, COPD with chronic hypoxic respiratory failure on 1.5L supplemental O2 at baseline, CHF unspecified EF, hypertension, GERD, coronary artery disease, fibromyalgia, diabetic polyneuropathy, chronic low back pain, hyperlipidemia, paroxysmal atrial fibrillation anticoagulated on flecainide no longer on pradaxa for anticoagulation, bipolar disorder, and balance disorder ambulates with walker at baseline among others presented to the ED early today via EMS due to increased confusion, shortness of breath, and wheezing. Has VNA the home following discharge on 02/14 for ventral hernia repair. Postoperatively developed confusion which has persisted and not improved per family. Her granddaughter states that she does have some possible mild dementia at baseline but the confusion is much more marked with great fluctuations in mood ranging from giddiness to fearfulness. Today, she was pulling off her O2 and desatting to around 80%. Her granddaughter reports sob and audible wheezing. NO fevers, chills, abd pain, n/v, diarrhea, erythema or drainage from incision, lightheadedness, palpitations, or chest pain. No urinary symptoms. In the ED, VSS, no hypoxia on 2L supplemental O2 (baseline 1.5L). There is a leukocytosis of 12.9. Renal function normal, lytes normal except mag 1.2. Trop 12.8. BNP 319. Ammonia level normal. VBG reassuring, no acute hypercapnia. Head CT negative for any acute intracranial abnormality but did show moderate chronic microangiopathy. CXR shows mild vascular congestion and cardiomegaly. In the ED, given 40mg IV lasix with improvement in WOB as well as IV mag and albuterol neb. Hospital course # Acute on chronic diastolic CHF exacerbation Treated with IV lasix as BNP was elevated with CXR showing fluid congestion. Continue 40 mg IV Lasix daily I&O cardiac diet echocardiogram pending # acute toxic metabolic encephalopathy fluctuating, multifactorial related to narcotic use, gabapentin, amitriptyline use Likely has undiagnosed degree of cognitive impairment at baseline give CT head showing moderate chronic microangiopathy Decrease gabapentin to 100 mg bedtime, decrease amitriptyline to 12.5 mg bedtime. Hold trazodone recurrent reorientation #Hypomagnesemia resolved give IV and PO supplement and repeat later # physical deconditioning PT eval Decrease oral fluid intake to 1.5L daily Continue magnesium supplement Monitor daily weight and report changes to PCP Hold Amytriptyline. restart if withdrawal symptoms at 12.5mg only Time Spent with Patient Time attestation: Total time managing care of this patient today ____ minutes. Discharge coordination time: Greater than 30 minutes Quality: Safe Use of Opioids Does Pt have an Active Cancer Diagnosis on the Problem List?: No Quality: Stroke Does the patient have a stroke diagnosis?: No Physical Exam Vital Signs: Vital Signs: Last Vital Signs Temp 96.8 F 02/21/23 07:38 Pulse 80 02/21/23 07:38 Resp 18 02/21/23 07:38 BP 145/78 H 02/21/23 07:38 Pulse Ox 98 02/21/23 07:38 O2 Del Method Nasal Cannula 02/21/23 07:38 O2 Flow Rate 1.5 02/21/23 07:38 Oxygen Flow Rate 3 02/17/23 10:41 BMI result Body Mass Index 41.8 Const: Other: Constitutional : Awake, interactive, not in distress Neck : Normal inspection, Supple Cardiovascular : RRR, no JVP, no lower extremity edema Respiratory : good bilateral air entry, no crackles, wheezes or rhonchi Gastrointestinal: soft, lax, Normal bowel sounds, Non tender Skin : Warm, Dry Neurological : Alert & disoriented x3, No focal deficit DS: Data Data Completed and Pending Completed studies during hospitalization [Text1]: Procedures Supplement Abdominal Wall with Synthetic Substitute, Open Approach (02/07/23) Labs on day of discharge: Laboratory Results - last 24 hr 02/20/23 02/20/23 02/21/23 15:47 20:32 07:25 POC Glucose 120 H 115 93 Discharge Plan Discharge Anticipated Discharge Date/Time: 02/21/23 11:28 Patient Disposition: [facility] Discharge Diagnosis: Heart failure exacerbation Referrals: Lisa Hale [Outside] - 1 Week Micheal Biggs PA-C [Primary Care Provider] - 1 Week Discharge Medications: New magnesium oxide 400 mg (241.3 mg magnesium) Tablet 800 mg PO DAILY Qty: 60 0RF Continued (DME) Chair, shower Misc See Rx Instructions .ROUTE .MEDSUPPLY Qty: 1 0RF Rx Instructions: As directed (DME) lancing device with lancets Kit See Rx Instructions .Route Qty: 1 0RF Rx Instructions: As directed losartan 100 mg tablet 100 mg PO DAILY Qty: 90 1RF colchicine (gout) [Colcrys] 0.6 mg tablet 0.6 mg PO DAILY Qty: 90 2RF Januvia 50 mg tablet 50 mg PO DAILY 90 Days Qty: 90 3RF isosorbide mononitrate 30 mg tablet extended release 24 hr 30 mg PO DAILY 90 Days Qty: 90 2RF (DME) blood-glucose meter [OneTouch Ultra2 Meter] Misc See Rx Instructions .Route Qty: 1 0RF Rx Instructions: test 3 times a day (DME) OneTouch Ultra Test Strip See Rx Instructions .Route Qty: 100 5RF Rx Instructions: test 3x's per day (DME) lancets [OneTouch UltraSoft 2 Lancet] 30 gauge misc See Rx Instructions .Route Qty: 200 5RF Rx Instructions: test 3x's per day (DME) pen needle, diabetic [BD Laury 2nd Gen Pen Needle] 32 gauge x 5/32 needle See Rx Instructions .Route Qty: 300 3RF Rx Instructions: Use to inject insulin 4 times per day gabapentin 300 mg capsule 300 mg PO BID 30 Days Qty: 60 1RF (DME) compr.stocking,knee,long,x-lrg Misc See Rx Instructions .Route Qty: 12 1RF Rx Instructions: WHITE SOCKS PLEASE atenolol 50 mg tablet 50 mg PO DAILY Qty: 30 3RF (DME) hospital bed Kit See Rx Instructions .Route Qty: 1 0RF Rx Instructions: As directed lidocaine 5 % adhesive patch,medicated 1 patch topical DAILY PRN (Reason: pain) Qty: 15 3RF Rx Instructions: leave on most painful area for up to 12 hrs oxycodone 5 mg tablet 5 mg PO BID 28 Days Qty: 56 0RF Rx Instructions: Partial Fill upon patient request. acetaminophen [Tylenol Extra Strength] 500 mg tablet 1,000 mg PO Q6H PRN (Reason: fever or pain) Qty: 20 0RF trazodone 50 mg tablet 50 mg PO BEDTIME 30 Days Qty: 30 3RF pantoprazole 40 mg tablet,delayed release (DR/EC) 40 mg PO DAILY@0630 albuterol sulfate 90 mcg/actuation HFA aerosol inhaler 2 puff PO Q6H PRN (Reason: bronchospasm) polyethylene glycol 3350 [Miralax] 17 gram Powder In Packet 17 g PO DAILY sennosides [Senna Lax] 8.6 mg tablet 8.6 mg PO BID insulin degludec [Tresiba FlexTouch U-100] 100 unit/mL (3 mL) insulin pen 50 unit subcut BID furosemide 40 mg tablet 40 mg PO DAILY simvastatin 40 mg tablet 40 mg PO BEDTIME docusate sodium 100 mg capsule 100 mg PO DAILY insulin aspart U-100 [Novolog FlexPen U-100 Insulin] 100 unit/mL (3 mL) insulin pen See Protocol subcut TIDAC PRN (Reason: Hyperglycemia) Protocol: Insulin Correction Scale Less than or equal to 110 ---- Give (units): 0 111 to 150 Give (units): 0 151 to 200 Give (units): 2 201 to 250 Give (units): 4 251 to 300 Give (units): 6 301 to 350 Give (units): 8 Greater than 350 Give (units): 10 Call MD if Blood Glucose > : 350 Rx Instructions: Per sliding scale 0-24 units (DME) blood sugar diagnostic Strip See Rx Instructions Not Applicable QID Qty: 10 Rx Instructions: As directed (DME) blood pressure monitor [Blood Pressure Kit] Kit See Rx Instructions .ROUTE .MEDSUPPLY Qty: 1 0RF Rx Instructions: As directed (DME) humidifiers [Cool Mist Humidifier] Misc See Rx Instructions .ROUTE .MEDSUPPLY Qty: 1 0RF Rx Instructions: As directed (DME) Ultra-Light Rollator Misc See Rx Instructions .Route Qty: 1 0RF Rx Instructions: As directed flecainide 100 mg tablet 100 mg PO BID Qty: 180 1RF Held amitriptyline 25 mg tablet 25 mg PO BEDTIME 30 Days Qty: 30 3RF Hold Instructions: Discuss the need to restart with PCP Discharge Orders: Discharge Order (Routine); Ordered 02/21/23 Ordered By: Manuel Gautam Diet: Low salt diet Activity on Discharge: As tolerated Stand Alone Forms: Patient Portal Discharge page Care Plan Goals: Read below Health Concerns: Read below Plan of Treatment: Read below Assessment: Decrease oral fluid intake to 1.5L daily Continue magnesium supplement Monitor daily weight and report changes to PCP Hold Amytriptyline. restart if withdrawal symptoms at 12.5mg only
[2023-02-21 15:52] VITALS: BP 143/67; PULSE 81; RESP 18; TEMP 36.3; O2SAT 100
--- NOTE | 2023-02-21 15:57 | MHC.CM.PN ---
Patient received a bed offer from [facility]; which has been accepted. The facility has obtained insurance authorization. Discharge info has been sent to the facility. BLS is booked 4-4:30pm. Patients son has been notified of discharge today.
[2023-02-21 16:03] LABS: Glucose, Whole Blood 140 mg/dL (60-115)
== END 2023-02-21 17:36 | disposition skilled nursing facility (03) | DRG 291 ==
LOC: HO.ED 13:48 → HO.EDOVER 15:22 → HO.S3 15:44
PROVIDERS: Admitting Provider Physician Assistant; Emergency Provider Emergency Medicine; PCP Physician Assistant; Visit Provider Student in an Organized Health Care Education/Training Program
DX: I11.0 Hypertensive heart disease with heart failure (principal); G92.8 Other toxic encephalopathy; I50.33 Acute on chronic diastolic (congestive) heart failure; J96.11 Chronic respiratory failure with hypoxia; Z68.41 Body mass index [BMI] 40.0-44.9, adult; E83.42 Hypomagnesemia; E11.42 Type 2 diabetes mellitus with diabetic polyneuropathy; F31.9 Bipolar disorder, unspecified; I48.0 Paroxysmal atrial fibrillation; L89.152 Pressure ulcer of sacral region, stage 2; E66.09 Other obesity due to excess calories; J44.9 Chronic obstructive pulmonary disease, unspecified; I25.10 Atherosclerotic heart disease of native coronary artery without angina pectoris; Z95.0 Presence of cardiac pacemaker; Z99.81 Dependence on supplemental oxygen; Z79.899 Other long term (current) drug therapy
CPT/HCPCS: 36415; 70450; 71045; 80048; 80076; 81001; 82140; 82803; 82947; 83690; 83735; 83880; 84443; 84484; 85025; 87086; 87635; 93005; 93306; 94640; 97162; 97530; 99285; J1200; J1650; J1940; J3475; Q9957

== ENCOUNTER 2023-02-17 15:12 | Outpatient (BNV) | payer OTHER, SELFPAY | END 2023-02-20 07:00 | PROVIDERS: Admitting Provider Physician Assistant; Emergency Provider Emergency Medicine; PCP Physician Assistant; Visit Provider Internal Medicine Cardiovascular Disease | DX: I34.81 Nonrheumatic mitral (valve) annulus calcification (principal) | CPT/HCPCS: 93306 ==

== ENCOUNTER → 2023-02-17 15:12 | Outpatient (BNV) | payer OTHER, SELFPAY | PROVIDERS: Admitting Provider Physician Assistant; Emergency Provider Emergency Medicine; PCP Physician Assistant; Visit Provider Physician Assistant | DX: G92.9 Unspecified toxic encephalopathy (principal); I50.9 Heart failure, unspecified; E83.42 Hypomagnesemia; R53.81 Other malaise | CPT/HCPCS: 99223; 99233; 99239 ==

== ENCOUNTER 2023-03-07 11:24 | Emergency (ER) | payer OTHER, SELFPAY ==
--- NOTE | ~2023-03-07 | XR_ITS ---
EXAMINATION: XR CHEST CLINICAL INFORMATION: Shortness of breath, cough, pneumonia COMPARISON: Chest 02/17/2023 TECHNIQUE: AP upright portable view of the chest was obtained. 12:12 FINDINGS: The patient is tilted and rotated. There are low lung volumes bilaterally. There is mild vascular congestion without sekou interstitial pulmonary edema. Mild opacity at the right lung base consistent with atelectasis and/or pneumonia. The cardiomediastinal silhouette is stable. Pacemaker pack projects over the left hemithorax with the tip of leads in the region of the right atrium and right ventricle. XR/XR chest 1V IMPRESSION: 1. Right lower lobe atelectasis and/or pneumonia. 2. Mild vascular congestion without sekou interstitial pulmonary edema. 3.
[2023-03-07 11:38] VITALS: BP 155/84; BP 156/64; PULSE 80; RESP 20; TEMP 37.2; O2SAT 100; BMI 44.9
--- NOTE | 2023-03-07 11:48 | ED.GENADULT ---
HPI - General Adult General Chief complaint: Dyspnea Stated complaint: from SNF, covid pneumonia, refused meds x5days Time Seen by Provider: 03/07/23 11:47 Source: patient and RN notes reviewed Mode of arrival: ambulatory Limitations: no limitations History of Present Illness HPI narrative: This is a 76 year old female, poor historian, with history type 2 diabetes, renal mass, COPD with chronic hypoxic respiratory failure on 1.5L supplemental O2 at baseline, CHF unspecified EF, hypertension, GERD, coronary artery disease, fibromyalgia, diabetic polyneuropathy, chronic low back pain, hyperlipidemia, paroxysmal atrial fibrillation, bipolar disorder, and balance disorder ambulates with walker at baseline among others presented to the ED from [facility]. Patient tested positive for COVID on Monday. She has been refusing all her medications for the last 5 days. Per today [facility] documentation, there is a change in her ?condition? on 03/03/2023 and was then tested for COVID which was positive. She has had increased congestion noted. Chest x-ray was performed on 03/06/2023 and was noted for pneumonia. Per note, resident has refused all her medications for the last 5 days with increased erratic behaviors, throwing pillows, blankets, and objects from her bedside table. She is unable to be redirected per note. Pt reports that she has had a cough, reporting no chest pain or shortness of breath. MD complaint: +COVID, ?PNE Onset (ago): day(s) Relieving factors: none Exacerbating factors: none Associated symptoms: cough Treatments prior to arrival: none Related Data Home Medications Medication Instructions Recorded Confirmed blood sugar diagnostic #10 ea 03/12/20 02/17/23 docusate sodium 100 mg capsule 100 mg PO DAILY 09/10/22 03/07/23 insulin aspart U-100 100 unit/mL See Protocol subcut TIDAC PRN 09/10/22 03/07/23 (3 mL) subcutaneous pen (Novolog Hyperglycemia FlexPen U-100 Insulin aspart) albuterol sulfate 90 mcg/actuation 2 puff PO Q6H PRN bronchospasm 12/01/22 03/07/23 aerosol inhaler insulin degludec 100 unit/mL (3 50 unit subcut BID 12/01/22 03/07/23 mL) subcutaneous pen (Tresiba FlexTouch U-100 insulin) pantoprazole 40 mg tablet,delayed 40 mg PO DAILY@0630 12/01/22 03/07/23 release polyethylene glycol 3350 17 gram 17 g PO DAILY 12/01/22 03/07/23 oral powder packet (Miralax) sennosides 8.6 mg tablet (Senna 8.6 mg PO BID 12/01/22 03/07/23 Lax) furosemide 40 mg tablet 40 mg PO DAILY 02/17/23 03/07/23 simvastatin 40 mg tablet 40 mg PO BEDTIME 02/17/23 03/07/23 Lactobacillus acidophilus 1 cap PO DAILY 03/07/23 03/07/23 (Acidophilus capsule) acetaminophen 500 mg tablet 1,000 mg PO TID fever or pain 03/07/23 03/07/23 (Tylenol Extra Strength) amoxicillin 875 mg-potassium 1 tab PO BID 03/07/23 03/07/23 clavulanate 125 mg tablet doxycycline monohydrate 100 mg 100 mg PO BID 03/07/23 03/07/23 capsule ergocalciferol (vitamin D2) 1,250 1,250 mcg PO MO 03/07/23 03/07/23 mcg (50,000 unit) capsule guaifenesin 100 mg/5 mL oral liquid 200 mg PO Q5H PRN Cough 03/07/23 03/07/23 potassium chloride 10 mEq 10 meq PO DAILY 03/07/23 03/07/23 capsule,extended release Previous Rx's Medication Instructions Recorded blood pressure monitor (Blood #1 ea 03/12/20 Pressure Kit) humidifiers (Cool Mist Humidifier) #1 ea 03/12/20 Shower Chair (Chair, shower) #1 ea 09/14/20 walker (Ultra-Light Rollator [facility] #1 ea 06/30/21 lancing device with lancets kit #1 ea 03/24/22 losartan 100 mg tablet 100 mg PO DAILY #90 tabs 05/11/22 colchicine (gout) 0.6 mg tablet 0.6 mg PO DAILY #90 tabs 07/08/22 (Colcrys) isosorbide mononitrate 30 mg 30 mg PO DAILY 90 days #90 tabs 07/08/22 tablet,extended release 24 hr sitagliptin phosphate 50 mg tablet 50 mg PO DAILY 90 days #90 tabs 07/08/22 (Januvia) flecainide 100 mg tablet 100 mg PO BID #180 tabs 09/14/22 blood sugar diagnostic (OneTouch #100 ea 10/07/22 Ultra Test strips) blood-glucose meter (OneTouch #1 ea 10/07/22 Ultra2 Meter) lancets 30 gauge (OneTouch #200 ea 10/07/22 UltraSoft 2 Lancet) pen needle, diabetic 32 gauge x #300 ea 10/17/22 (BD Laury 2nd Gen Pen Needle) gabapentin 300 mg capsule 300 mg PO BID 30 days #60 caps 11/02/22 compr.stocking,knee,long,x-lrg #12 ea 11/08/22 atenolol 50 mg tablet 50 mg PO DAILY #30 tabs 12/13/22 hospital bed #1 ea 01/31/23 lidocaine 5 % topical patch 1 patch topical DAILY PRN pain #15 02/01/23 ea trazodone 50 mg tablet 50 mg PO BEDTIME 30 days #30 tabs 02/16/23 magnesium oxide 400 mg (241.3 mg 800 mg (2 x 400 mg (241.3 mg 02/21/23 magnesium) tablet magnesium)) PO DAILY #60 tabs Allergies Allergy/AdvReac Type Severity Reaction Status Date / Time dapagliflozin [From [facility]] Allergy Unknown yeast Verified 02/07/23 12:38 infection metformin Allergy Unknown Diarrhea Verified 02/07/23 12:38 amitriptyline AdvReac Intermediate Anxiety Verified 02/07/23 12:38 clindamycin AdvReac Mild Itching Verified 02/07/23 12:38 Review of Systems Review of Systems: Yes all other systems are reviewed and are negative Constitutional: Constitutional: Reports as per HPI [facility] Past Medical History Medical History Unstable angina URI (upper respiratory infection) Mass of right kidney NADEGE (generalized anxiety disorder) GERD (gastroesophageal reflux disease) Decompensated heart failure HTN (hypertension) Arthritis Insulin dependent type 1 diabetes mellitus Foot ulcer Fibromyalgia Coronary artery disease COPD (chronic obstructive pulmonary disease) Pacemaker Afib Surgical History Hx laparoscopic cholecystectomy H/O vein stripping Tubal ligation status History of cataract surgery History of pacemaker Family History Family History Father No problems noted. Mother No problems noted. Social History Social History Household Members: Children Household Members Other:: son stays with her, family nearby Housing: Condominium Do you presently have visiting nurse or other home services: Yes Unable to assess alcohol history related to: Unknown Alcohol intake: former Patient Tobacco Use Status: Never used Tobacco Smoked in Last 30 Days: No e-Cigarette/Vaping Use: Never Used Second Hand Smoke Exposure: No Use of substances other than those prescribed or required for medical reasons: No Advance Directives: Yes Advance Directives on File: Yes Advance Directives Date on File: 06/17/20 service: No Current occupational status: retired and disabled Cognitive needs: Yes Hearing needs: No Vision needs: Yes Physical Exam ED Vital Signs: Vital Signs - 24 hr 03/07/23 11:38 03/07/23 13:39 03/07/23 14:29 Temperature 98.9 F Pulse Rate 80 80 80 Respiratory Rate 20 16 16 Blood Pressure 156/64 H 155/60 H 164/54 H Pulse Oximetry 100 100 99 Oxygen Delivery Method Nasal Cannula Nasal Cannula Nasal Cannula Oxygen Flow Rate 2 1 03/07/23 15:05 Temperature Pulse Rate 80 Respiratory Rate 12 Blood Pressure 157/54 H Pulse Oximetry 99 Oxygen Delivery Method Nasal Cannula Oxygen Flow Rate 1 BMI result Body Mass Index 44.9 Const General: cooperative, comfortable and no acute distress Orientation/consciousness: oriented to person Limitations: other limitations (Poor historian ) [facility] Head: Yes normal to inspection, Yes normocephalic and Yes atraumatic Ears: hearing grossly normal bilaterally General nose exam: Normal external nose present Face and sinus: Yes normal facial exam Mouth: Normal oral and palatal mucosa present, oropharynx normal and moist mucous membranes Throat: Yes posterior oropharynx normal Eyes General: appearance normal, both eyes and all related structures Eyelids: Yes eyelids normal Conjunctivae: conjunctivae normal Sclerae: sclerae normal Pupils: Equal, round and reactive pupils present EOM: EOMs intact bilaterally Neck Neck: Yes normal visual inspection, Yes full ROM and Yes no lymphadenopathy Lymphatic: no lymphadenopathy noted Chest Chest palpation & inspection: normal inspection of the chest Resp Other: Diminished lung sounds with faint crackles auscultated at bilateral lung bases. No wheezes Effort & Inspection: normal respiratory effort and able to speak in complete sentences Cardio Rate: regular rate Rhythm: regular rhythm Heart sounds: S1 normal heart sound present and S2 normal heart sound present GI Inspection: Yes normal to inspection Skin General skin exam: no rashes or lesions noted Trauma: no lacerations or abrasions Wounds: no wounds Neuro General: oriented to person and moves all extremities Cranial nerves: Yes Equal, round and reactive pupils present Extrem General: Yes normal to inspection and Yes no pedal edema Right upper extremity: normal to inspection Left upper extremity: normal to inspection Right lower extremity: normal to inspection Left lower extremity: normal to inspection Course Reevaluation(s) Reevaluation #1: Pt with right lower lobe atelectasis and/or pneumonia. CXR does not appear to have acute consolidation today - reviewed CXR with Dr. Corcoran. Pt has no leukocytosis, stable H&H, VBG O2 saturation at 95%, Creatinine normal. Hypomagensium at 1.4, replenished with IV magnesium, BNP 164. O2 saturation 100% on 2L. Pt was seen by my attending physician, Dr. Corcoran, who does not meet admission criteria or need for higher level of care given work up today. Pt stable for d/c back to [facility]. Time: 15:00 Medications Administered Discontinued Medications Generic Name Dose Route Start Last Admin Trade Name Freq PRN Reason Stop Dose Admin Magnesium Sulfate 2 gm in 50 mls @ 25 mls/hr 03/07/23 12:53 03/07/23 16:35 Magnesium Sulfate/H2o IV 03/07/23 14:52 Infused ONCE ONE Infusion Medical Decision Making Medical Decision Making MDM Narrative: This is a 76 year old female, poor historian, with history type 2 diabetes, renal mass, COPD with chronic hypoxic respiratory failure on 1.5L supplemental O2 at baseline, CHF unspecified EF, hypertension, GERD, coronary artery disease, fibromyalgia, diabetic polyneuropathy, chronic low back pain, hyperlipidemia, paroxysmal atrial fibrillation, bipolar disorder, and balance disorder ambulates with walker at baseline among others presented to the ED from [facility]. Patient tested positive for COVID on Monday. She has been refusing all her medications for the last 5 days. On arrival to the emergency room, mildly hypertensive at 156/64, oxygen saturation 100% on 2 L nasal cannula. Lungs are diminished at bilateral lung bases. Given poor historian about current physical condition, labs, EKG, chest x-ray, VBG, UA, lactic, viral swabs ordered. Differential Diagnosis Differential Diagnoses: The differential diagnosis associated with the presentation includes COVID, pneumonia, acute respiratory failure, COPD exacerbation Admission/Observation Consideration of admission/observation: Escalation of care including admission/observation considered Escalation of care including admission observation was considered given her significant comorbidities and physical examination and workup consistent, however given workup today, will trial outpatient management of symptoms. Negative for PNE today. Lab Data MDM Lab Attestation statement: I reviewed the patient's lab results. 03/07/23 12:07 03/07/23 12:07 Labs: Lab Results 03/07/23 03/07/23 03/07/23 Range/Units 12:05 12:07 13:19 WBC 7.4 (4.8-10.8) X10*3/uL RBC 4.86 (4.20-5.50) X10*6/uL Hgb 14.2 D (12.0-16.0) g/dl Hct 43.0 (37.0-47.0) % MCV 88.5 (80.0-98.0) fL MCH 29.2 (27.0-33.0) pg MCHC 33.0 (31.0-35.0) g/dl RDW 13.8 (11.0-16.0) % Plt Count 241 (160-400) X10*3/uL MPV 10.1 (9.4-12.3) fL Immature Gran % (Auto) 0.4 (0.0-0.4) % Neut % (Auto) 65.9 (45-73) % Lymph % (Auto) 24.7 (20-40) % Kings % (Auto) 7.3 (2-11) % Eos % (Auto) 1.6 (0-4) % Baso % (Auto) 0.1 (0-2) % Lymph # (Auto) 1.8 (1.2-4.9) X10*3/uL Kings # (Auto) 0.5 (0.1-1.2) X10*3/uL Eos # (Auto) 0.1 (0.0-0.4) X10*3/uL Baso # (Auto) 0.0 (0.0-0.2) X10*3/uL Abs Immat Gran (auto) 0.03 (0.00-0.03) X10*3/uL Absolute Neuts (auto) 4.9 (2.0-8.3) x10*3/uL Absolute Nucleated RBC 0.000 (0.0-0.012) X10*3/uL Nucleated RBC % (auto) 0.0 (0.0-0.2) /100WBC PT 13.3 (11.1-13.3) SEC INR 1.1 (0.9-1.1) APTT 34.8 (26.0-36.4) SEC VBG pH (7.32-7.43) VBG pCO2 mmHg VBG pO2 mmHg VBG HCO3 (22-26) mmol/L VBG O2 Saturation % VBG Base Excess mmol/L Sodium 141 (135-145) mmol/L Potassium 4.1 D (3.3-5.1) mmol/L Chloride 104 (96-108) mmol/L Carbon Dioxide 29 (22-29) mmol/L Anion Gap 12 (12-20) BUN 11 (9-16) mg/dL Creatinine 0.61 (0.5-1.4) mg/dL Estim Creat Clear Calc 84.1 Estimated GFR > 60 Random Glucose 133 H (60-115) mg/dL Lactic Acid 0.9 (0.5-2.0) mmol/L Calcium 10.8 H D (8.4-10.2) mg/dL Magnesium 1.4 L* (1.6-2.6) mg/dL Total Bilirubin 0.5 (0.0-1.0) mg/dL Direct Bilirubin 0.2 (0.0-0.5) mg/dL AST 15 (5-31) U/L ALT 9 (0-31) U/L Alkaline Phosphatase 88 (39-117) U/L Troponin I High Sens 9.0 (<3.5-17.0) ng/L B-Natriuretic Peptide 164 H (<100) pg/mL Total Protein 7.1 (6.5-8.0) g/dL Albumin 3.6 (3.5-5.0) g/dL Urine Color Urine Appearance Urine pH (5.0-9.0) Ur Specific [place] (1.005-1.025) Urine Protein (Neg-Trace) mg/dL Urine Glucose (UA) (Negative) mg/dL Urine Ketones (Negative) mg/dL Urine Blood (Negative) Urine Nitrite (Negative) Ur Leukocyte Esterase (Negative) Urine RBC (0-2) /HPF Urine WBC (0-5) /HPF Ur Squamous Epith Cells (0-2) /HPF Urine Bacteria (None Seen) Hyaline Casts (0-2) /LPF Influenza Type A (PCR) (Negative) Influenza Type B (PCR) (Negative) RSV RNA Qual (PCR) (Negative) SARS-CoV-2 RNA (RT-PCR) (Negative) 03/07/23 03/07/23 03/07/23 Range/Units 13:20 13:25 13:41 WBC (4.8-10.8) X10*3/uL RBC (4.20-5.50) X10*6/uL Hgb (12.0-16.0) g/dl Hct (37.0-47.0) % MCV (80.0-98.0) fL MCH (27.0-33.0) pg MCHC (31.0-35.0) g/dl RDW (11.0-16.0) % Plt Count (160-400) X10*3/uL MPV (9.4-12.3) fL Immature Gran % (Auto) (0.0-0.4) % Neut % (Auto) (45-73) % Lymph % (Auto) (20-40) % Kings % (Auto) (2-11) % Eos % (Auto) (0-4) % Baso % (Auto) (0-2) % Lymph # (Auto) (1.2-4.9) X10*3/uL Kings # (Auto) (0.1-1.2) X10*3/uL Eos # (Auto) (0.0-0.4) X10*3/uL Baso # (Auto) (0.0-0.2) X10*3/uL Abs Immat Gran (auto) (0.00-0.03) X10*3/uL Absolute Neuts (auto) (2.0-8.3) x10*3/uL Absolute Nucleated RBC (0.0-0.012) X10*3/uL Nucleated RBC % (auto) (0.0-0.2) /100WBC PT (11.1-13.3) SEC INR (0.9-1.1) APTT (26.0-36.4) SEC VBG pH 7.43 (7.32-7.43) VBG pCO2 43 mmHg VBG pO2 73 mmHg VBG HCO3 29 H (22-26) mmol/L VBG O2 Saturation 95.0 % VBG Base Excess 4.8 mmol/L Sodium (135-145) mmol/L Potassium (3.3-5.1) mmol/L Chloride (96-108) mmol/L Carbon Dioxide (22-29) mmol/L Anion Gap (12-20) BUN (9-16) mg/dL Creatinine (0.5-1.4) mg/dL Estim Creat Clear Calc Estimated GFR Random Glucose (60-115) mg/dL Lactic Acid (0.5-2.0) mmol/L Calcium (8.4-10.2) mg/dL Magnesium (1.6-2.6) mg/dL Total Bilirubin (0.0-1.0) mg/dL Direct Bilirubin (0.0-0.5) mg/dL AST (5-31) U/L ALT (0-31) U/L Alkaline Phosphatase (39-117) U/L Troponin I High Sens (<3.5-17.0) ng/L B-Natriuretic Peptide (<100) pg/mL Total Protein (6.5-8.0) g/dL Albumin (3.5-5.0) g/dL Urine Color Yellow Urine Appearance Clear Urine pH 6.5 (5.0-9.0) Ur Specific [place] 1.015 (1.005-1.025) Urine Protein Negative (Neg-Trace) mg/dL Urine Glucose (UA) Negative (Negative) mg/dL Urine Ketones Negative (Negative) mg/dL Urine Blood Negative (Negative) Urine Nitrite Negative (Negative) Ur Leukocyte Esterase Trace H (Negative) Urine RBC 0-2 (0-2) /HPF Urine WBC 6-10 H (0-5) /HPF Ur Squamous Epith Cells 3-5 (0-2) /HPF Urine Bacteria None Seen (None Seen) Hyaline Casts 0-2 (0-2) /LPF Influenza Type A (PCR) NEGATIVE (Negative) Influenza Type B (PCR) NEGATIVE (Negative) RSV RNA Qual (PCR) NEGATIVE (Negative) SARS-CoV-2 RNA (RT-PCR) POSITIVE A (Negative) Radiology Impression Discussion of test interpretation with radiology: I have reviewed the radiologist's reading. External Record Review External record reviewed: Inpatient record, Office record, Outpatient record, Prior outpatient labs, Prior outpatient radiology, Primary care record and Outside ED record Discharge Plan Discharge Clinical Impression: COVID-19, Hypomagnesemia Patient Disposition: [facility] Transfer Details: BACK TO [facility] Additional Instructions: Your chest x-ray did not show a pneumonia today. You tested positive for COVID-19. Your magnesium was low at 1.4mg/dL, and this was replenished with IV magnesium. Your labs were reassuring. Your oxygen saturation is within normal limits. It is very important to take all your prescribed medications at home as directed. Please return if any new or worsening symptoms occur, including not but limited to worsening shortness of breath, chest pain, weakness. If any of these medications occur, please return for re-evaluation. Prescriptions: No Action (DME) Chair, shower [facility] See Rx Instructions .ROUTE .MEDSUPPLY Qty: 1 0RF Rx Instructions: As directed (DME) lancing device with lancets Kit See Rx Instructions .Route Qty: 1 0RF Rx Instructions: As directed losartan 100 mg tablet 100 mg PO DAILY Qty: 90 1RF colchicine (gout) [Colcrys] 0.6 mg tablet 0.6 mg PO DAILY Qty: 90 2RF Januvia 50 mg tablet 50 mg PO DAILY 90 Days Qty: 90 3RF isosorbide mononitrate 30 mg tablet extended release 24 hr 30 mg PO DAILY 90 Days Qty: 90 2RF (DME) blood-glucose meter [OneTouch Ultra2 Meter] [facility] See Rx Instructions .Route Qty: 1 0RF Rx Instructions: test 3 times a day (DME) OneTouch Ultra Test Strip See Rx Instructions .Route Qty: 100 5RF Rx Instructions: test 3x's per day (DME) lancets [OneTouch UltraSoft 2 Lancet] 30 gauge [facility] See Rx Instructions .Route Qty: 200 5RF Rx Instructions: test 3x's per day (DME) pen needle, diabetic [BD Laury 2nd Gen Pen Needle] 32 gauge x 5/32 needle See Rx Instructions .Route Qty: 300 3RF Rx Instructions: Use to inject insulin 4 times per day gabapentin 300 mg capsule 300 mg PO BID 30 Days Qty: 60 1RF (DME) compr.stocking,knee,long,x-lrg Misc See Rx Instructions .Route Qty: 12 1RF Rx Instructions: WHITE SOCKS PLEASE atenolol 50 mg tablet 50 mg PO DAILY Qty: 30 3RF (DME) hospital bed Kit See Rx Instructions .Route Qty: 1 0RF Rx Instructions: As directed lidocaine 5 % adhesive patch,medicated 1 patch topical DAILY PRN (Reason: pain) Qty: 15 3RF Rx Instructions: leave on most painful area for up to 12 hrs trazodone 50 mg tablet 50 mg PO BEDTIME 30 Days Qty: 30 3RF pantoprazole 40 mg tablet,delayed release (DR/EC) 40 mg PO DAILY@0630 albuterol sulfate 90 mcg/actuation HFA aerosol inhaler 2 puff PO Q6H PRN (Reason: bronchospasm) polyethylene glycol 3350 [Miralax] 17 gram Powder In Packet 17 g PO DAILY sennosides [Senna Lax] 8.6 mg tablet 8.6 mg PO BID insulin degludec [Tresiba FlexTouch U-100] 100 unit/mL (3 mL) insulin pen 50 unit subcut BID furosemide 40 mg tablet 40 mg PO DAILY simvastatin 40 mg tablet 40 mg PO BEDTIME magnesium oxide 400 mg (241.3 mg magnesium) Tablet 800 mg PO DAILY Qty: 60 0RF potassium chloride 10 mEq Capsule, Extended Release 10 meq PO DAILY guaifenesin 100 mg/5 mL Liquid 200 mg PO Q5H PRN (Reason: Cough) doxycycline monohydrate 100 mg Capsule 100 mg PO BID Rx Instructions: FINISH 03/13/23 ergocalciferol (vitamin D2) 1,250 mcg (50,000 unit) Capsule 1,250 mcg PO MO Acidophilus Capsule 1 cap PO DAILY amoxicillin-pot clavulanate [Augmentin] 875-125 mg Tablet 1 tab PO BID Rx Instructions: FINSIH 03/13/23 acetaminophen [Tylenol Extra Strength] 500 mg tablet 1,000 mg PO TID docusate sodium 100 mg capsule 100 mg PO DAILY insulin aspart U-100 [Novolog FlexPen U-100 Insulin] 100 unit/mL (3 mL) insulin pen See Protocol subcut TIDAC PRN (Reason: Hyperglycemia) Protocol: Insulin Correction Scale Less than or equal to 110 ---- Give (units): 0 111 to 150 Give (units): 0 151 to 200 Give (units): 2 201 to 250 Give (units): 4 251 to 300 Give (units): 6 301 to 350 Give (units): 8 Greater than 350 Give (units): 10 Call MD if Blood Glucose > : 350 Rx Instructions: Per sliding scale 0-24 units (DME) blood sugar diagnostic Strip See Rx Instructions Not Applicable QID Qty: 10 Rx Instructions: As directed (DME) blood pressure monitor [Blood Pressure Kit] Kit See Rx Instructions .ROUTE .MEDSUPPLY Qty: 1 0RF Rx Instructions: As directed (DME) humidifiers [Cool Mist Humidifier] Misc See Rx Instructions .ROUTE .MEDSUPPLY Qty: 1 0RF Rx Instructions: As directed (DME) Ultra-Light Rollator Misc See Rx Instructions .Route Qty: 1 0RF Rx Instructions: As directed flecainide 100 mg tablet 100 mg PO BID Qty: 180 1RF Interventions: ED Discharge Assessment Last Done: 03/07/23 18:35 Discharge Date/Time: 03/07/23 18:36
[2023-03-07 12:13] LABS: MANUAL DIFF FLAG NO
[2023-03-07 12:16] LABS: Basophils Percent Auto 0.1 % (0-2); Eosinophils Absolute Auto 0.1 X10*3/uL (0.0-0.4); Eosinophils Percent Auto 1.6 % (0-4); Hemoglobin 14.2 g/dl (12.0-16.0); Imm Gran Abs Auto 0.03 X10*3/uL (0.00-0.03); Imm Gran Pct Auto 0.4 % (0.0-0.4); Lymphocytes Absolute Auto 1.8 X10*3/uL (1.2-4.9); Lymphocytes Percent Auto 24.7 % (20-40); Mean Corpuscular Hemoglobin 29.2 pg (27.0-33.0); Mean Corpuscular Volume 88.5 fL (80.0-98.0); Mean Platelet Volume 10.1 fL (9.4-12.3); Monocytes Absolute Auto 0.5 X10*3/uL (0.1-1.2); Monocytes Percent Auto 7.3 % (2-11); Neutrophils Absolute Auto 4.9 x10*3/uL (2.0-8.3); Neutrophils Percent Auto 65.9 % (45-73); Platelet Count 241 X10*3/uL (160-400); Red Blood Count 4.86 X10*6/uL (4.20-5.50); Red Cell Distribution Width 13.8 % (11.0-16.0); White Blood Count 7.4 X10*3/uL (4.8-10.8)
--- NOTE | 2023-03-07 12:24 | ECG_ITS ---
Test Reason : CONGESTION,CP Blood Pressure : / mmHG Vent. Rate : 080 BPM Atrial Rate : 000 BPM P-R Int : 000 ms QRS Dur : 142 ms QT Int : 394 ms P-R-T Axes : 000 081 -86 degrees QTc Int : 454 ms Electronic ventricular pacemaker Non-specific intra-ventricular conduction block Nonspecific T wave abnormality Abnormal ECG When compared with ECG of 17-FEB-2023 11:51, No significant changes seen Referred By: Melinda Guillory Electronically Signed By:VERONICA HWANG MD
[2023-03-07 12:26] LABS: Lactic Acid 0.9 mmol/L (0.5-2.0)
--- NOTE | 2023-03-07 12:35 | PC.NURSE ---
pt a difficult poke. re-attempt necessary for second set of cultures
--- NOTE | 2023-03-07 12:40 | PHA.MEDREC ---
Pharmacy Consult ? Medication Reconciliation Pharmacy has completed the medication reconciliation. Patient came from [facility] with med list. Sylvia Kolb, KeoD
[2023-03-07 12:42] LABS: Alanine Aminotransferase 9 U/L (0-31); Albumin Level 3.6 g/dL (3.5-5.0); Alkaline Phosphatase 88 U/L (39-117); Anion Gap 12 (12-20); Aspartate Amino Transferase 15 U/L (5-31); Bilirubin Direct 0.2 mg/dL (0.0-0.5); Bilirubin Total 0.5 mg/dL (0.0-1.0); Blood Urea Nitrogen 11 mg/dL (9-16); Calcium 10.8 mg/dL (8.4-10.2); Carbon Dioxide 29 mmol/L (22-29); Chloride 104 mmol/L (96-108); Creatinine Clr Calc Pharmacy 84.1; Estimated Glomerular Filt Rate > 60; Glucose Random 133 mg/dL (60-115); Magnesium 1.4 mg/dL (1.6-2.6); Potassium 4.1 mmol/L (3.3-5.1); Sodium 141 mmol/L (135-145); Total Protein 7.1 g/dL (6.5-8.0)
[2023-03-07 13:20] LABS: B Type Natriuretic Peptide 164 pg/mL (<100)
[2023-03-07 13:30] LABS: VBG Base Excess 4.8 mmol/L; VBG HCO3 29 mmol/L (22-26); VBG pCO2 43 mmHg; VBG pH 7.43 (7.32-7.43); VBG pO2 73 mmHg
[2023-03-07 13:33] LABS: Venous Blood Gas Refer to POC result
[2023-03-07] MEDS: Magnesium Sulfate/H2O 2 GM/50 ML PIGGYBACK IV (13:33)
[2023-03-07 13:37] LABS: INTERNATIONAL NORM RATIO 1.1 (0.9-1.1); Prothrombin Time 13.3 SEC (11.1-13.3)
[2023-03-07 13:39] VITALS: BP 155/60; PULSE 80; RESP 16; O2SAT 100
[2023-03-07 13:40] LABS: Partial Thromboplastin Time 34.8 SEC (26.0-36.4)
[2023-03-07 14:04] LABS: Influenza A PCR NEGATIVE (Negative); Influenza B PCR NEGATIVE (Negative); Resp Syncy Virus RNA Qual PCR NEGATIVE (Negative); SARS COV2 PCR INHOUSE POSITIVE (Negative)
[2023-03-07 14:05] LABS: Appearance Urine Clear; Color Urine Yellow; Glucose Urine UA Negative (Negative); Leukocyte Esterase Urine Trace (Negative); Nitrite Urine Negative (Negative); PH 6.5 (5.0-9.0); Specific Gravity - Urine 1.015 (1.005-1.025); UMIC TRIGGER UACC YES; Urine Blood Negative (Negative); Urine Ketones Negative (Negative); Urine Protein Negative (Neg-Trace)
[2023-03-07 14:12] LABS: Bacteria Urine None Seen (None Seen); Hyaline Casts Urine 0-2 /LPF (0-2); RBC Urine 0-2 /HPF (0-2); UACC Culture Trigger YES
[2023-03-07 14:29] VITALS: BP 164/54; PULSE 80; RESP 16; O2SAT 99
[2023-03-07 15:05] VITALS: BP 157/54; PULSE 80; RESP 12; O2SAT 99
--- NOTE | 2023-03-07 17:43 | MHC.EDTECH ---
patient repositioned and bed pad changed
== END 2023-03-07 18:36 | disposition skilled nursing facility (03) ==
PROVIDERS: Physician Assistant Medical; Emergency Provider Emergency Medicine; PCP Physician Assistant
DX: U07.1 COVID-19 (principal); E83.42 Hypomagnesemia; E11.9 Type 2 diabetes mellitus without complications; I11.0 Hypertensive heart disease with heart failure; I50.9 Heart failure, unspecified; E78.5 Hyperlipidemia, unspecified; I48.0 Paroxysmal atrial fibrillation; J44.9 Chronic obstructive pulmonary disease, unspecified; J96.11 Chronic respiratory failure with hypoxia; Z99.81 Dependence on supplemental oxygen; Z79.4 Long term (current) use of insulin; Z79.899 Other long term (current) drug therapy; Z95.0 Presence of cardiac pacemaker
CPT/HCPCS: 0241U; 36415; 71045; 80048; 80076; 81001; 81003; 82803; 83605; 83735; 83880; 84484; 85025; 85610; 85730; 87040; 87086; 93005; 96365; 96366; 99285; J3475

== ENCOUNTER 2023-04-04 16:51 | Emergency (ER) | payer OTHER, SELFPAY ==
--- NOTE | ~2023-04-04 | XR_ITS ---
EXAMINATION: XR ANKLE, LEFT CLINICAL INFORMATION: Left ankle pain COMPARISON: None available. TECHNIQUE: AP, lateral, and mortise views of the left ankle. FINDINGS: Diffuse soft tissue swelling is seen with extensive vascular calcification and soft tissue calcifications. There is a transverse oriented fracture through the medial malleolus which is minimally displaced. A minimally displaced fracture through the posterior malleolus is seen in the lateral view and there is an obliquely oriented minimally displaced fracture through the lateral malleolus. I do not appreciate any abnormal widening of the ankle mortise on these projections. Prominent calcaneal heel spurs are seen at the attachment point of the plantar aponeurosis and Achilles tendon. XR/XR ankle LT min 3V IMPRESSION: Trimalleolar ankle fracture. No abnormal widening of the ankle mortise on these projections. Diffuse soft tissue swelling.
[2023-04-04 16:59] VITALS: BP 136/90; PULSE 70; O2SAT 95
[2023-04-04 17:18] VITALS: BMI 41.6
[2023-04-04 17:24] VITALS: BP 129/46; PULSE 86; RESP 16; TEMP 36.4; O2SAT 100
--- NOTE | 2023-04-04 17:38 | ED_ITS ---
HPI - General Adult General Chief complaint: Extremity Injury, Lower Stated complaint: SAT ON L ANKLE, L ANKLE PAIN Time Seen by Provider: 04/04/23 17:15 Source: patient, family and EMS Mode of arrival: EMS Limitations: no limitations History of Present Illness HPI narrative: 77 year old female history of obesity, frequent UTIs, hypertension, GERD, diabetes, fibromyalgia presents w / left ankle pain X 1 hour. Patient reports she was doing physical therapy at home she became tired so she sat down and accidentally sat on her left ankle. Since then has been having pain, difficulty moving left ankle. Denies numbness, tingling, fevers, chills. No fall peer No head trauma. Related Data Home Medications Medication Instructions Recorded Confirmed blood sugar diagnostic #10 ea 03/12/20 02/17/23 docusate sodium 100 mg capsule 100 mg PO DAILY 09/10/22 04/04/23 insulin aspart U-100 100 unit/mL See Protocol subcut TIDAC PRN 09/10/22 04/04/23 (3 mL) subcutaneous pen (Novolog Hyperglycemia FlexPen U-100 Insulin aspart) albuterol sulfate 90 mcg/actuation 2 puff PO Q6H PRN bronchospasm 12/01/22 03/07/23 aerosol inhaler insulin degludec 100 unit/mL (3 50 unit subcut BID 12/01/22 04/04/23 mL) subcutaneous pen (Tresiba FlexTouch U-100 insulin) pantoprazole 40 mg tablet,delayed 40 mg PO DAILY@0630 12/01/22 04/04/23 release polyethylene glycol 3350 17 gram 17 g PO DAILY 12/01/22 04/04/23 oral powder packet (Miralax) sennosides 8.6 mg tablet (Senna 8.6 mg PO BID 12/01/22 04/04/23 Lax) simvastatin 40 mg tablet 40 mg PO BEDTIME 02/17/23 04/04/23 acetaminophen 500 mg tablet 1,000 mg PO TID fever or pain 03/07/23 03/07/23 (Tylenol Extra Strength) ergocalciferol (vitamin D2) 1,250 1,250 mcg PO MO 03/07/23 04/04/23 mcg (50,000 unit) capsule potassium chloride 10 mEq 10 meq PO DAILY 03/07/23 04/04/23 capsule,extended release furosemide 20 mg tablet 20 mg PO DAILY 04/04/23 04/04/23 Previous Rx's Medication Instructions Recorded blood pressure monitor (Blood #1 ea 03/12/20 Pressure Kit) humidifiers (Cool Mist Humidifier) #1 ea 03/12/20 Shower Chair (Chair, shower) #1 ea 09/14/20 walker (Ultra-Light Rollator misc) #1 ea 06/30/21 lancing device with lancets kit #1 ea 03/24/22 colchicine (gout) 0.6 mg tablet 0.6 mg PO DAILY #90 tabs 07/08/22 (Colcrys) isosorbide mononitrate 30 mg 30 mg PO DAILY 90 days #90 tabs 07/08/22 tablet,extended release 24 hr sitagliptin phosphate 50 mg tablet 50 mg PO DAILY 90 days #90 tabs 07/08/22 (Januvia) flecainide 100 mg tablet 100 mg PO BID #180 tabs 09/14/22 blood sugar diagnostic (OneTouch #100 ea 10/07/22 Ultra Test strips) blood-glucose meter (OneTouch #1 ea 10/07/22 Ultra2 Meter) lancets 30 gauge (OneTouch #200 ea 10/07/22 UltraSoft 2 Lancet) pen needle, diabetic 32 gauge x #300 ea 10/17/22 (BD Laury 2nd Gen Pen Needle) gabapentin 300 mg capsule 300 mg PO BID 30 days #60 caps 11/02/22 compr.stocking,knee,long,x-lrg #12 ea 11/08/22 atenolol 50 mg tablet 50 mg PO DAILY #30 tabs 12/13/22 hospital bed #1 ea 01/31/23 lidocaine 5 % topical patch 1 patch topical DAILY PRN pain #15 02/01/23 ea baclofen 10 mg tablet 10 mg PO BID 30 days #60 tabs 03/22/23 dabigatran etexilate 150 mg 150 mg PO BID 90 days #180 caps 03/22/23 capsule (Pradaxa) morphine 15 mg immediate release 15 mg PO Q6H PRN pain 5 days #10 04/04/23 tablet tabs Allergies Allergy/AdvReac Type Severity Reaction Status Date / Time dapagliflozin [From Merged With [facility]] Allergy Unknown yeast Verified 04/04/23 17:18 infection metformin Allergy Unknown Diarrhea Verified 04/04/23 17:18 amitriptyline AdvReac Intermediate Anxiety Verified 04/04/23 17:18 clindamycin AdvReac Mild Itching Verified 04/04/23 17:18 Review of Systems Review of Systems: Constitutional : No Weight loss, No Fever, No Chills, No Fatigue, No Malaise ENT/Mouth : No sore throat, No Rhinorrhea Eyes: No Eye Pain, No Swelling, No Redness Cardiovascular : No Chest Pain, No SOB, No Dyspnea on Exertion, No Orthopnea, No Edema, No Palpitations Respiratory : No Cough, No Sputum, No Wheezing Gastrointestinal : No Nausea, No Vomiting, No Diarrhea, No Constipation, No abdominal Pain, No Hematochezia, No Melena Genitourinary : No Dysuria, No Urinary Frequency, No Hematuria, Musculoskeletal : + joint pain, No Myalgias, + Joint Swelling Skin : No Skin Lesions, No rash Neuro : No Weakness, No Numbness, No Dizziness, No Headache Psych : No Anxiety/Panic, No Depression All other systems reviewed and are negative Yes all other systems are reviewed and are negative [facility] Past Medical History Attestation statement: The following information was validated with the patient. Source: old records reviewed and nursing notes reviewed Medical History Unstable angina URI (upper respiratory infection) Mass of right kidney NADEGE (generalized anxiety disorder) GERD (gastroesophageal reflux disease) Decompensated heart failure HTN (hypertension) Arthritis Insulin dependent type 1 diabetes mellitus Foot ulcer Fibromyalgia Coronary artery disease COPD (chronic obstructive pulmonary disease) Pacemaker Afib Surgical History Hx laparoscopic cholecystectomy H/O vein stripping Tubal ligation status History of cataract surgery History of pacemaker Family History Family History Father No problems noted. Mother No problems noted. Social History Household Members: Children Household Members Other:: son stays with her, family nearby Housing: Condominium Do you presently have visiting nurse or other home services: Yes Unable to assess alcohol history related to: Unknown Alcohol intake: never Patient Tobacco Use Status: Never used Tobacco e-Cigarette/Vaping Use: Never Used Second Hand Smoke Exposure: No Advance Directives Date on File: 06/17/20 service: No Current occupational status: retired and disabled Cognitive needs: Yes Hearing needs: No Vision needs: Yes Physical Exam ED Vital Signs: Vital Signs - 24 hr 04/04/23 17:24 04/04/23 18:55 04/05/23 00:04 Temperature 97.6 F 97.5 F 97.7 F Pulse Rate 86 82 84 Respiratory Rate 16 17 18 Blood Pressure 129/46 L 122/42 L 111/41 L Pulse Oximetry 100 100 100 Oxygen Delivery Method Nasal Cannula Room Air Nasal Cannula Oxygen Flow Rate 2 2 04/05/23 06:25 04/05/23 07:09 Temperature 97.8 F 97.5 F Pulse Rate 80 80 Respiratory Rate 18 20 Blood Pressure 127/46 L 122/59 L Pulse Oximetry 95 100 Oxygen Delivery Method Nasal Cannula Nasal Cannula Oxygen Flow Rate 2 2 BMI result Body Mass Index 41.6 vss Appearance: Alert.? Oriented X3.? No acute distress.? Head: Normocephalic, atraumatic, no step-offs or deformities Eyes: Pupils equal, round and reactive to light.? Neck: Normal inspection.? Neck supple.? CVS: Normal heart rate and rhythm.? Pulses normal.? Respiratory: No respiratory distress.? Breath sounds normal.? Abdomen: Soft and nontender.? Skin: Skin warm and dry.? Normal skin color.? Normal skin turgor.? Extremities: No lower extremity edema.? No calf ttp. Global weakness. 2+ dorsalis pedis, anterior tibialis and posterior tibialis pulses equal bilateral, patient has chronic venous stasis to bilateral lower extremities worse on the left, painful range of motion to left ankle however still able to move it slightly, no foot drop. + TTP throughout entire L ankle medial and lateral. Normal sensation distally. LLE externally rotated at baseline Neuro: Oriented X 3.? No motor deficit.? No sensory deficit. CN 2-12 intact Course Reevaluation(s) Reevaluation #1: I reviewed x-rays, x-ray showing distal tib and fib fracture. Plan is to place patient in a posterior short and stirrup splint. Will give morphine for pain control. Time: 18:20 Reevaluation #2: Patient noted to have a trimalleolar ankle fracture. Will place in splint, she will be nonweightbearing. Will give morphine for pain control. I did discuss this case with ortho who reports patient should be splinted with nonweightbearing. Educated patient on diagnosis and treatment plan, answered all question, patient verbalizes understanding. I spoke to daughter and patient, they feel like they need more services at home would like to be evaluated by physical therapy and case management. Patient was placed in a posterior sure and a stirrup, patient at baseline has an externally rotated left lower extremity this has been present for years. Time: 19:18 Reevaluation #3: After splint application patient feels better. NV intact. Plan ortho follow up when d.c. Should be sent home w/ pain meds Time: 21:17 Additional Reevaluation(s): 6670 04/05/23-- Spoke with Shivani from case management. Patient will go home with resumption at [facility] for care home, physical therapy and occupational therapy. Patient and family both declined short-term rehab. Case management has arranged follow-up with ortho for her. She will be discharge home via BLS. Medications Administered Generic Name Dose Route Start Last Admin Trade Name Freq PRN Reason Stop Dose Admin Colchicine 0.6 mg 04/05/23 09:00 04/05/23 09:54 Colchicine 0.6 Mg Tablet PO 0.6 mg DAILY MASSIMO Administration Dabigatran 150 mg 04/05/23 09:00 04/05/23 11:41 Dabigatran Etexilate Mesylate 150 Mg Capsule PO 150 mg BID MASSIMO Administration Docusate Sodium 100 mg 04/05/23 09:00 04/05/23 09:18 Docusate Sodium 100 Mg Capsule PO 100 mg DAILY MASSIMO Administration Flecainide Acetate 100 mg 04/05/23 09:00 04/05/23 09:54 Flecainide Acetate 50 Mg Tablet PO 100 mg BID MASSIMO Administration Furosemide 20 mg 04/05/23 09:00 04/05/23 09:18 Furosemide 20 Mg Tablet PO 20 mg DAILY MASSIMO Administration Protocol Gabapentin 300 mg 04/05/23 09:00 04/05/23 09:18 Gabapentin 300 Mg Capsule PO 300 mg BID MASSIMO Administration Insulin Glargine 35 unit 04/05/23 09:00 04/05/23 09:29 Insulin Glargine,Hum.Rec.Anlog 100 Unit/Ml 10 Ml Vial SUBCUT Not Given BID [facility] Insulin Human Lispro 0 unit 04/05/23 07:30 04/05/23 11:40 Insulin Lispro 100 Unit/Ml 3 Ml Vial SUBCUT Not Given QIDACHS [facility] Protocol Isosorbide Mononitrate 30 mg 04/05/23 09:00 04/05/23 09:18 Isosorbide Mononitrate 30 Mg Tab.Er.24h PO 30 mg DAILY [facility] Administration Protocol Morphine Sulfate 15 mg 04/04/23 21:18 04/05/23 01:26 Morphine Sulfate Immed Release 15 Mg Tablet PO 15 mg Q6H PRN Administration Pain, Severe (Pain Scale 7-10) Omeprazole 20 mg 04/05/23 06:30 04/05/23 06:11 Omeprazole 20 Mg Capsule.Dr PO 20 mg DAILY@0630 [facility] Administration Polyethylene Glycol 17 gm 04/05/23 09:00 04/05/23 09:19 Polyethylene Glycol 3350 17 Gm Powd.Pack PO 17 gm DAILY [facility] Administration Potassium Chloride 10 meq 04/05/23 09:00 04/05/23 09:18 Potassium Chloride Er 10 Meq Tablet.Er PO 10 meq DAILY [facility] Administration Senna 8.6 mg 04/05/23 09:00 04/05/23 09:18 Sennosides 8.6 Mg Tablet PO 8.6 mg BID [facility] Administration Sitagliptin Phosphate 50 mg 04/05/23 09:00 04/05/23 09:55 Sitagliptin Phosphate 50 Mg Tablet PO 50 mg DAILY [facility] Administration Discontinued Medications Generic Name Dose Route Start Last Admin Trade Name Ishmaelq PRN Reason Stop Dose Admin Acetaminophen 975 mg 04/04/23 17:38 04/04/23 17:57 Acetaminophen 325 Mg Tablet PO 04/04/23 17:39 975 mg ONCE ONE Administration Melatonin 6 mg 04/05/23 01:15 04/05/23 01:26 Melatonin 3 Mg Tablet PO 04/05/23 01:16 6 mg ONCE ONE Administration Morphine Sulfate 15 mg 04/04/23 18:19 04/04/23 18:40 Morphine Sulfate Immed Release 15 Mg Tablet PO 04/04/23 18:20 15 mg ONCE ONE Administration Medical Decision Making Medical Decision Making [facility] Narrative: 1817 77 yo f presents w/ left ankle pain sp sitting on her ankle PE 2+ dorsalis pedis, anterior tibialis and posterior tibialis pulses equal bilateral, patient has chronic venous stasis to bilateral lower extremities worse on the left, painful range of motion to left ankle however still able to move it slightly, no foot drop. + TTP throughout entire L ankle medial and lateral. Normal sensation distally. likely sprain or strain. Will rule out fracture dislocation. Unlikely neurovascular compromise or threat to [place]. Plan at this time imaging. Differential Diagnosis Differential Diagnoses: The differential diagnosis associated with the presentation includes likely sprain or strain. Will rule out fracture dislocation. Unlikely neurovascular compromise or threat to [place]. Admission/Observation Consideration of admission/observation: Escalation of care including admission/observation considered unlikely Lab Data Labs: Lab Results 04/05/23 04/05/23 04/05/23 Range/Units 07:36 08:20 11:40 POC Glucose 35 L* 54 L* 107 (60-115) mg/dL Independent Interpretation I performed an independent interpretation of an: Plain X-Ray (XR/XR ankle LT min 3V IMPRESSION: Trimalleolar ankle fracture. No abnormal widening of the ankle mortise on these projections. Diffuse soft tissue swelling.) Radiology Impression Discussion of test interpretation with radiology: I have reviewed the radiologist's reading. Independent Historian Clinical information obtained from an independent historian. History obtained from or confirmed by: Other External Record Review External record reviewed: Inpatient record, Office record, Outpatient record, Prior outpatient labs, Prior outpatient radiology, Primary care record and Outside ED record Chronic Conditions Patient?s care impacted by: Diabetes and Hypertension Critical Care Time Critical Care Time Critical Care Time: Yes Total Critical Care Time: 35 Attestation: I attest to this time spent taking care of the patient, obtaining history, physical, reviewing labs, imaging, speaking to my attending, speaking to specialist. Discharge Plan Discharge Clinical Impression: Ankle fracture, left, Trimalleolar fracture Patient Disposition: Home, Self-Care Instructions: Ankle Fracture (ED), R.I.C.E. Treatment (ED) Additional Instructions: Take your medications as prescribed. If you were prescribed antibiotics today, it is important that you take your medication to their entirety, do not skip any doses, do not finish them early. Follow-up with your primary care provider this week. Return to the emergency department with new or worsening symptoms. Such as fevers, chills, chest pain, shortness of breath, nausea, vomiting, dizziness, headache, vision changes, lethargy In case of emergency call 911 A narcotic has been sent to your pharmacy please take this as prescribed. Do not take more than the prescribed dose. Narcotic medications can cause addiction. Please do not mix them with alcohol. Do not take them while driving or operating machinery. Do not take them with any other narcotics. Do not share them with friends or family. They can cause constipation. Take them only for severe pain. Prescriptions: New morphine 15 mg tablet 15 mg PO Q6H PRN (Reason: pain) 5 Days Qty: 10 0RF Rx Instructions: Partial Fill upon patient request. No Action (DME) Chair, shower Misc See Rx Instructions .ROUTE .MEDSUPPLY Qty: 1 0RF Rx Instructions: As directed (DME) lancing device with lancets Kit See Rx Instructions .Route Qty: 1 0RF Rx Instructions: As directed colchicine (gout) [Colcrys] 0.6 mg tablet 0.6 mg PO DAILY Qty: 90 2RF Januvia 50 mg tablet 50 mg PO DAILY 90 Days Qty: 90 3RF isosorbide mononitrate 30 mg tablet extended release 24 hr 30 mg PO DAILY 90 Days Qty: 90 2RF (DME) blood-glucose meter [OneTouch Ultra2 Meter] Misc See Rx Instructions .Route Qty: 1 0RF Rx Instructions: test 3 times a day (DME) OneTouch Ultra Test Strip See Rx Instructions .Route Qty: 100 5RF Rx Instructions: test 3x's per day (DME) lancets [OneTouch UltraSoft 2 Lancet] [facility] See Rx Instructions .Route Qty: 200 5RF Rx Instructions: test 3x's per day (DME) pen needle, diabetic [BD Laury 2nd Gen Pen Needle] 32 gauge x 5/32 needle See Rx Instructions .Route Qty: 300 3RF Rx Instructions: Use to inject insulin 4 times per day gabapentin 300 mg capsule 300 mg PO BID 30 Days Qty: 60 1RF (DME) compr.stocking,knee,long,x-lrg Misc See Rx Instructions .Route Qty: 12 1RF Rx Instructions: WHITE SOCKS PLEASE atenolol 50 mg tablet 50 mg PO DAILY Qty: 30 3RF (DME) hospital bed Kit See Rx Instructions .Route Qty: 1 0RF Rx Instructions: As directed lidocaine 5 % adhesive patch,medicated 1 patch topical DAILY PRN (Reason: pain) Qty: 15 3RF Rx Instructions: leave on most painful area for up to 12 hrs Pradaxa 150 mg capsule 150 mg PO BID 90 Days Qty: 180 1RF baclofen 10 mg tablet 10 mg PO BID 30 Days Qty: 60 1RF pantoprazole 40 mg tablet,delayed release (DR/EC) 40 mg PO DAILY@0630 albuterol sulfate 90 mcg/actuation HFA aerosol inhaler 2 puff PO Q6H PRN (Reason: bronchospasm) polyethylene glycol 3350 [Miralax] 17 gram Powder In Packet 17 g PO DAILY sennosides [Senna Lax] 8.6 mg tablet 8.6 mg PO BID insulin degludec [Tresiba FlexTouch U-100] 100 unit/mL (3 mL) insulin pen 50 unit subcut BID simvastatin 40 mg tablet 40 mg PO BEDTIME potassium chloride 10 mEq Capsule, Extended Release 10 meq PO DAILY ergocalciferol (vitamin D2) 1,250 mcg (50,000 unit) Capsule 1,250 mcg PO MO acetaminophen [Tylenol Extra Strength] 500 mg tablet 1,000 mg PO TID furosemide 20 mg tablet 20 mg PO DAILY docusate sodium 100 mg capsule 100 mg PO DAILY insulin aspart U-100 [Novolog FlexPen U-100 Insulin] 100 unit/mL (3 mL) insulin pen See Protocol subcut TIDAC PRN (Reason: Hyperglycemia) Protocol: Insulin Correction Scale Less than or equal to 110 ---- Give (units): 0 111 to 150 Give (units): 0 151 to 200 Give (units): 2 201 to 250 Give (units): 4 251 to 300 Give (units): 6 301 to 350 Give (units): 8 Greater than 350 Give (units): 10 Call MD if Blood Glucose > : 350 Rx Instructions: Per sliding scale 0-24 units (DME) blood sugar diagnostic Strip See Rx Instructions Not Applicable QID Qty: 10 Rx Instructions: As directed (DME) blood pressure monitor [Blood Pressure Kit] Kit See Rx Instructions .ROUTE .MEDSUPPLY Qty: 1 0RF Rx Instructions: As directed (DME) humidifiers [Cool Mist Humidifier] Misc See Rx Instructions .ROUTE .MEDSUPPLY Qty: 1 0RF Rx Instructions: As directed (DME) Ultra-Light Rollator Misc See Rx Instructions .Route Qty: 1 0RF Rx Instructions: As directed flecainide 100 mg tablet 100 mg PO BID Qty: 180 1RF Referrals: [facility] [place] [facility] [Provider Group] - 04/10/23 11:00 am (Appointment scheduled with Mayte. Please call the office to reschedule if you are unable to make this appointment. ) [facility] [Outside] Micheal Biggs PA-C [Primary Care Provider] - 2 days Stand Alone Forms: Work/School Release
--- NOTE | 2023-04-04 17:38 | PC.NURSE ---
xray taken at this time.
[2023-04-04] MEDS: Acetaminophen 325 MG TABLET 975 MG PO (17:57)
--- NOTE | 2023-04-04 18:00 | PC.NURSE ---
medication administered per provider order.
[2023-04-04] MEDS: Morphine Sulfate Immed Release 15 MG TABLET PO (18:40)
--- NOTE | 2023-04-04 18:41 | PC.NURSE ---
medication administered per provider order. pt awaiting xray results at this time. family bedside. call mane placed within reach.
[2023-04-04 18:55] VITALS: BP 122/42; PULSE 82; RESP 17; TEMP 36.4; O2SAT 100
--- NOTE | 2023-04-04 20:00 | PC.NURSE ---
This designer/writer assumed care of this Pt at 1900. Pt A&Ox2, reports effectiveness to medications given by previous RN. Daughter at bedside and updated on plan. Provider at bedside splinting left leg.
[2023-04-05 00:04] VITALS: BP 111/41; PULSE 84; RESP 18; TEMP 36.5; O2SAT 100
--- NOTE | 2023-04-05 01:00 | PC.NURSE ---
Pt moved over to hospital bed. Skin dry, and intact. Pillow placed to left leg and arms.
[2023-04-05] MEDS: Morphine Sulfate Immed Release 15 MG TABLET PO (01:26)
[2023-04-05] MEDS: Melatonin 3 MG TABLET 6 MG PO (01:26)
--- NOTE | 2023-04-05 03:00 | PC.NURSE ---
Pt changed and repositioned.
[2023-04-05] MEDS: Omeprazole 20 MG CAPSULE.DR PO (06:11)
[2023-04-05 06:25] VITALS: BP 127/46; PULSE 80; RESP 18; TEMP 36.6; O2SAT 95
[2023-04-05 07:09] VITALS: BP 122/59; PULSE 80; RESP 20; TEMP 36.4; O2SAT 100
--- NOTE | 2023-04-05 07:13 | PC.NURSE ---
ASSUMED CARE OF PT AT THIS TIME
[2023-04-05 07:47] LABS: Glucose, Whole Blood 35 mg/dL (60-115)
--- NOTE | 2023-04-05 07:50 | PC.NURSE ---
PT BLOOD GLUCOSE 34; PT PROVIDED WITH ORANGE JUICE (120 ML) AND VANILLA PUDDING. PROVIDER NOTIFIED. ORDERS TO RECHECK BLOOD GLUCOSE IN 30 MINUTES FOR REEVALUATION; DIABETIC DIET ORDER PLACED.
[2023-04-05 08:25] LABS: Glucose, Whole Blood 54 mg/dL (60-115)
--- NOTE | 2023-04-05 08:29 | PC.NURSE ---
Blood glucose up to 54 now. Pt requesting more pudding- pudding given. Will continue to follow blood glucose.
[2023-04-05] MEDS: Gabapentin 300 MG CAPSULE PO (09:18)
[2023-04-05] MEDS: Sennosides 8.6 MG TABLET PO (09:18)
[2023-04-05] MEDS: Isosorbide Mononitrate 30 MG TAB.ER.24H PO (09:18)
[2023-04-05] MEDS: Potassium Chloride ER 10 MEQ TABLET.ER PO (09:18)
[2023-04-05] MEDS: Furosemide 20 MG TABLET PO (09:18)
[2023-04-05] MEDS: Docusate Sodium 100 MG CAPSULE PO (09:18)
[2023-04-05] MEDS: polyethylene glycoL 3350 17 GM POWD.PACK PO (09:19)
--- NOTE | 2023-04-05 09:30 | PC.NURSE ---
HOLDING LANTUS; PT HYPOGLYCEMIC (54).
--- NOTE | 2023-04-05 09:39 | PC.NURSE ---
DELAYED ADMINISTRATION OF COLCHICINE, PRADAXA, TAMBOCOR, AND JANUVIA SECONDARY TO MED NOT BEING LOADED IN PYXIS. PHARMACY CALLED; CONFIRMED WITH PHARMACIST THAT MEDICATION WILL BE DELIVERED TO ED [facility].
--- NOTE | 2023-04-05 09:49 | PC.NURSE ---
PT REQUESTS MEDICATION BE CRUSHED IN PUDDING.
[2023-04-05] MEDS: Colchicine 0.6 MG TABLET PO (09:54)
[2023-04-05] MEDS: Flecainide Acetate 50 MG TABLET 100 MG PO (09:54)
[2023-04-05] MEDS: SITagliptin Phosphate 50 MG TABLET PO (09:55)
--- NOTE | 2023-04-05 09:56 | MHC.CM.ED ---
Received case management consult overnight. Patient came to the ER after a fall. Found to have an ankle fracture that required splinting and patient to be non-weight bearing. Patient and family are well known to CM from previous ER visits/admissions. [place] [facility] [place] [facility] [place]. Patient was d/c'd home with resumption of [facility]. Attempted to meet with patient in regards to discharge planning. Patient is currently c/o pain. No family present. Spoke with patient's daughter/HCP, Bell, via telephone at [phone]. Bell does not want patient to return to [facility]. Bell is not interested in short term rehab. She would like her [facility]. Tiarra GIRON aware. Continue to monitor for d/c needs.
--- NOTE | 2023-04-05 10:03 | PC.NURSE ---
REPORT GIVEN TO OVERFLOW RN. AWAITING TRANSPORT
[2023-04-05] MEDS: Dabigatran Etexilate Mesylate 150 MG CAPSULE PO (11:41)
[2023-04-05 11:43] LABS: Glucose, Whole Blood 107 mg/dL (60-115)
--- NOTE | 2023-04-05 12:20 | PC.NURSE ---
Pt given lunch. does not like any of the food. food services worker at bedside discussing food with pt.
[2023-04-05 14:18] VITALS: BP 152/70; PULSE 100; RESP 18; TEMP 36.4; O2SAT 100
--- NOTE | 2023-04-05 16:06 | PC.NURSE ---
I offered pt pain medication. pt declined.
[2023-04-05 17:08] LABS: Glucose, Whole Blood 70 mg/dL (60-115)
--- NOTE | 2023-04-05 17:20 | PC.NURSE ---
Dinner offered, pt refused, crying and screaming, pt wants pudding. pudding provided.
== END 2023-04-05 19:02 | disposition home or self-care (01) ==
PROVIDERS: Emergency Provider Internal Medicine; PCP Physician Assistant
DX: S82.852A Displaced trimalleolar fracture of left lower leg, initial encounter for closed fracture (principal); M25.572 Pain in left ankle and joints of left foot; Y33.XXXA Other specified events, undetermined intent, initial encounter; Y93.B9 Activity, other involving muscle strengthening exercises; Y92.009 Unspecified place in unspecified non-institutional (private) residence as the place of occurrence of the external cause; Y99.9 Unspecified external cause status; Z79.899 Other long term (current) drug therapy
CPT/HCPCS: 73610; 82947; 99284

== ENCOUNTER 2023-04-10 11:11 | Outpatient (AMB) | payer OTHER, SELFPAY ==
--- NOTE | 2023-04-10 11:14 | MHC.OFFVIS ---
Intake Intake Visit Reasons: fc- pradeep ankle fracture Intake Note: Lizzie is a 77 year old female who presents today with her daughter for a evaluation for her left ankle fx, DOI 03/15/23. Patient reports she was doing physical therapy at home she became tired so she sat down and accidentally sat on her left ankle. She states that her pain is at a 6 on the pain scale. Allergies dapagliflozin [From [facility]] Allergy (Unknown, Verified 04/10/23 11:18) yeast infection metformin Allergy (Unknown, Verified 04/10/23 11:18) Diarrhea amitriptyline Adverse Reaction (Intermediate, Verified 04/10/23 11:18) Anxiety clindamycin Adverse Reaction (Mild, Verified 04/10/23 11:18) Itching HPI fc- pradeep ankle fracture HPI Details 77-year-old female, who is [place]utanese speaking, presents in the office today for an evaluation of left ankle pain. The patient presented to the ED on 04/04/2023 status post doing physical therapy at home she became tired so she sat down and accidentally sat on her left ankle. X-rays of the left ankle were obtained. She was placed in a posterior short stirrup splint. While in the office she reports her pain is a 6/10. Her daughter states she is putting very little weight on the ankle. She states she holds on the walker and will pivot to get where she needs to go. She is accompanied in the office today by her daughter, who is translating for her. The patient lives with her son. Her daughter and granddaughter also helps with her care. Patient has a significant medical history of diabetes mellitus. Her daughter states they have her sugar well controlled. Her daughter is asking for her oxygen to be checked while in the office today. Her daughter states she had a hernia surgery and has been walking less since. She states prior to this surgery she was walking around the house to the bathroom, bedroom, and kitchen. The patient has been excessively scratching the skin. [facility] Medical History Unstable angina URI (upper respiratory infection) Mass of right kidney NADEGE (generalized anxiety disorder) GERD (gastroesophageal reflux disease) Decompensated heart failure HTN (hypertension) Arthritis Insulin dependent type 1 diabetes mellitus Foot ulcer Fibromyalgia Coronary artery disease COPD (chronic obstructive pulmonary disease) Pacemaker Afib Surgical History Hx laparoscopic cholecystectomy H/O vein stripping Tubal ligation status History of cataract surgery History of pacemaker Family History Father No problems noted. Mother No problems noted. Household Members: Children Household Members Other:: son stays with her, family nearby [facility] Do you presently have visiting nurse or other home services: Yes Unable to assess alcohol history related to: Unknown Alcohol intake: never Patient Tobacco Use Status: Never used Tobacco e-Cigarette/Vaping Use: Never Used Second Hand Smoke Exposure: No Advance Directives Date on File: 06/17/20 service: No Current occupational status: retired and disabled Cognitive needs: Yes Hearing needs: No Vision needs: Yes Review of Systems Const All systems reviewed & are unremarkable except as noted in HPI and below Physical Exam Const General: cooperative and no acute distress Orientation/consciousness: patient oriented x3 Resp Effort & Inspection: normal respiratory effort and able to speak in complete sentences Cardio Peripheral pulses: Peripheral pulses 2+ throughout Skin General skin exam: no rashes or lesions noted Neuro General: patient oriented x3 Extrem Other: Left ankle: Circumferential erythema and darkening o9f the skin with underlying edema. Her daughter reports this is her baseline. Slightly able to perform dorsiflexion and plantarflexion with pain. Sensation intact. Pedal pulse intact. Mild excoriations from itching underneath the splint padding. No signs of infection at this time. No additional breaks in the skin at this time. Office Procedures Casting/Splints 42416-Fnxqd Leg splint application Procedure code (CPT) selection complete Assessment & Plan Assessment & Plan (1) Left trimalleolar fracture: Code(s): S82.852A - Displaced trimalleolar fracture of left lower leg, initial encounter for closed fracture Qualifiers: Encounter type: initial encounter Fracture type: closed Qualified Code(s): S82.852A - Displaced trimalleolar fracture of left lower leg, initial encounter for closed fracture Plan Ms. Lemus is a 77-year-old female, who is Bhutanese speaking, presents in the office today for an evaluation of left ankle pain. The patient presented to the ED on 04/04/2023 status post doing physical therapy at home she became tired so she sat down and accidentally sat on her left ankle. X-rays of the left ankle were obtained. She was placed in a posterior short stirrup splint. While in the office she reports her pain is a 6/10. Her daughter states she is putting very little weight on the ankle. She states she holds on the walker and will pivot to get where she needs to go. She is accompanied in the office today by her daughter, who is translating for her. The patient lives with her son. Her daughter and granddaughter also help with her care. Patient has a significant medical history of diabetes mellitus. Her daughter states they have her glucose is well controlled but does not know what the last A1c was. Dr. Mariee was available to see the patient with me while in the office today and a collaborative treatment plan was made. We discussed the roles of conservative treatment verses surgical treatment. Her daughter was educated the risk and benefits of both treatments. A stockinette was applied under the splint. Dr. Mariee has requested a good amount of padding to be placed between the skin and the splint. She will be placed into a posterior splint, custom made, while in the office today. She will remain non weight bearing at this time. Follow up will be in 1 week for a skin check, or sooner if needed. X-rays of the left ankle, obtained on 04/04/2023, revealed: Trimalleolar ankle fracture. No abnormal widening of the ankle mortise on these projections. Diffuse soft tissue swelling. Patient Instructions: Scribed for Mayte Trevino PA-C by Yolanda Womack medical underwriter, on 04/10/2023 at 11:12 am, EST. Coding Level of Care Code New Pt Level 4 (06946) Diagnoses Closed trimalleolar fracture of left ankle, initial encounter S82.852A Encounter type: initial encounter Fracture type: closed CPT Codes Splint - CPT: 12085-Vqjfz Leg splint application ([id number])
== END 2023-04-10 12:07 | disposition home or self-care (01) ==
PROVIDERS: PCP Physician Assistant; Visit Provider Physician Assistant
DX: S82.852A Displaced trimalleolar fracture of left lower leg, initial encounter for closed fracture (principal)
CPT/HCPCS: 27816; 99204

== ENCOUNTER → 2023-04-10 11:11 | Outpatient (BNVA) | payer OTHER, SELFPAY | PROVIDERS: PCP Physician Assistant; Visit Provider Physician Assistant | DX: S82.852A Displaced trimalleolar fracture of left lower leg, initial encounter for closed fracture (principal); X50.1XXA Overexertion from prolonged static or awkward postures, initial encounter; Y93.B9 Activity, other involving muscle strengthening exercises; Y92.009 Unspecified place in unspecified non-institutional (private) residence as the place of occurrence of the external cause; Y99.9 Unspecified external cause status | CPT/HCPCS: 27816; 99202 ==

== ENCOUNTER 2023-04-18 12:34 | Outpatient (AMB) | payer OTHER, SELFPAY ==
--- NOTE | 2023-04-18 12:35 | A.OFFVIS_ITS ---
Intake Intake Visit Reasons: OV- pradeep ankle fracture Skin check Intake Note: Lizzie is a 77 year old female who presents today with her daughter for a skin check for her left ankle fx, DOI 03/15/23. Patient report she has been itchy and having some pain. Allergies dapagliflozin [From [facility]] Allergy (Unknown, Verified 04/18/23 12:41) yeast infection metformin Allergy (Unknown, Verified 04/18/23 12:41) Diarrhea amitriptyline Adverse Reaction (Intermediate, Verified 04/18/23 12:41) Anxiety clindamycin Adverse Reaction (Mild, Verified 04/18/23 12:41) Itching HPI OV- pradeep ankle fracture Skin check HPI Details 77-year-old female, who is [place] speak ing, presents in the office today for a skin check and follow up of a left trimalleolar fracture, which occurred on 04/04/2023 status post doing physical therapy at home she became tired so she sat down and accidentally sat on her left ankle. The patient reports she has some itching and some pain. [facility] Medical History Unstable angina URI (upper respiratory infection) Mass of right kidney NADEGE (generalized anxiety disorder) GERD (gastroesophageal reflux disease) Decompensated heart failure HTN (hypertension) Arthritis Insulin dependent type 1 diabetes mellitus Foot ulcer Fibromyalgia Coronary artery disease COPD (chronic obstructive pulmonary disease) Pacemaker Afib Surgical History Hx laparoscopic cholecystectomy H/O vein stripping Tubal ligation status History of cataract surgery History of pacemaker Family History Father No problems noted. Mother No problems noted. Social History Household Members: Children Household Members Other:: son stays with her, family nearby Housing: Condominium Do you presently have visiting nurse or other home services: Yes Unable to assess alcohol history related to: Unknown Alcohol intake: never Patient Tobacco Use Status: Never used Tobacco e-Cigarette/Vaping Use: Never Used Second Hand Smoke Exposure: No Advance Directives Date on File: 06/17/20 service: No Current occupational status: retired and disabled Cognitive needs: Yes Hearing needs: No Vision needs: Yes Review of Systems Const All systems reviewed & are unremarkable except as noted in HPI and below Physical Exam Const General: cooperative, healthy appearing and no acute distress Resp Effort & Inspection: normal respiratory effort and able to speak in complete sentences Cardio Rate: regular rate Peripheral pulses: Peripheral pulses 2+ throughout GI Palpation (GI): Soft to palpation Skin Lesions: no lesions Rashes: no rashes Extrem Other: Left ankle: Mild circumferential edema. Resolving ecchymosis. Tenderness to palpation over the medial and lateral malleolus. Patient reports sensation is intact. Pedal pulse intact. Skin intact with no open wounds. Office Procedures Casting/Splints 86072-Lctzl Leg Cast Application Procedure code (CPT) selection complete Assessment & Plan Assessment & Plan (1) Left trimalleolar fracture: Code(s): S82.852A - Displaced trimalleolar fracture of left lower leg, initial encounter for closed fracture Qualifiers: Encounter type: initial encounter Fracture type: closed Qualified Code(s): S82.852A - Displaced trimalleolar fracture of left lower leg, initial encounter for closed fracture Plan Ms. Lemus is a 77-year-old female, who is [place] speaking, presents in the office today for a skin check and follow up of a left trimalleolar fracture, which occurred on 04/04/2023 status post doing physical therapy at home she became tired so she sat down and accidentally sat on her left ankle. The patient reports she has some itching and some pain. The patient will transition into a custom made cast while in the office today. This will be well padded around the heel and through out the cast to protect her skin. She will continue to remain non-weight bear, however, this is difficult for her as she puts her foot down to allow her to pivot. Follow up will be in 3 weeks with repeat x-rays, or sooner if needed. Patient Instructions: Scribed for Mayte Trevino PA-C by Yolanda Womack medical office secretary, on 04/18/2023 at 12:36 pm, EST. Coding Level of Care Code Global (59772) Diagnoses Closed trimalleolar fracture of left ankle, initial encounter S82.852A Encounter type: initial encounter Fracture type: closed CPT Codes Casting - CPT: 77373-Flhbs Leg Cast Application ([id number])
== END 2023-04-18 14:00 | disposition home or self-care (01) ==
PROVIDERS: PCP Physician Assistant; Visit Provider Physician Assistant
DX: S82.852A Displaced trimalleolar fracture of left lower leg, initial encounter for closed fracture (principal)
CPT/HCPCS: 29405; 99024

== ENCOUNTER → 2023-04-18 12:34 | Outpatient (BNVA) | payer OTHER, SELFPAY | PROVIDERS: PCP Physician Assistant; Visit Provider Physician Assistant | DX: S82.852D Displaced trimalleolar fracture of left lower leg, subsequent encounter for closed fracture with routine healing (principal) | CPT/HCPCS: 29405; 99212 ==

== ENCOUNTER 2023-05-09 09:24 | Outpatient (REF) | payer OTHER, SELFPAY | END 2023-05-09 09:25 | disposition home or self-care (01) | LOC: HO.HOSX 09:24 | PROVIDERS: Visit Provider Physician Assistant | DX: S82.852D Displaced trimalleolar fracture of left lower leg, subsequent encounter for closed fracture with routine healing (principal) | CPT/HCPCS: 29405; 73610; 99212 ==

== ENCOUNTER 2023-05-09 12:30 | Outpatient (AMB) | payer OTHER, SELFPAY ==
--- NOTE | 2023-05-09 12:53 | A.OFFVIS_ITS ---
Intake Intake Visit Reasons: OV- pradeep ankle fx Cast Off/ xrays Skin check Intake Note: Lizzie is a 77 year old female who presents today with her daughter for a skin check for her left ankle fx, DOI 03/15/23. Cast off and xrays updated. Patient's daughter states she is doing well, states improvement since her last visit. Allergies dapagliflozin [From [facility]] Allergy (Unknown, Verified 05/09/23 12:55) yeast infection metformin Allergy (Unknown, Verified 05/09/23 12:55) Diarrhea amitriptyline Adverse Reaction (Intermediate, Verified 05/09/23 12:55) Anxiety clindamycin Adverse Reaction (Mild, Verified 05/09/23 12:55) Itching HPI OV- pradeep ankle fx Cast Off/ xrays Skin check HPI Details 77-year-old female who returns to the [facility] today with her daughter for a follow-up of left ankle fracture, 03/15/23. Her daughter states she has improvement in her pain since the last visit. She also reports she uses a walker at baseline and does not ambulate a lot. She is doing well overall. Her daughter states she does put her foot down to pivot only with the cast on. She has a history of diabetes. [facility] Medical History Unstable angina URI (upper respiratory infection) Mass of right kidney NADEGE (generalized anxiety disorder) GERD (gastroesophageal reflux disease) Decompensated heart failure HTN (hypertension) Arthritis Insulin dependent type 1 diabetes mellitus Foot ulcer Fibromyalgia Coronary artery disease COPD (chronic obstructive pulmonary disease) Pacemaker Afib Surgical History Hx laparoscopic cholecystectomy H/O vein stripping Tubal ligation status History of cataract surgery History of pacemaker Family History Father No problems noted. Mother No problems noted. Social History Household Members: Children Household Members Other:: son stays with her, family nearby Housing: Condominium Do you presently have visiting nurse or other home services: Yes Unable to assess alcohol history related to: Unknown Alcohol intake: never Patient Tobacco Use Status: Never used Tobacco e-Cigarette/Vaping Use: Never Used Second Hand Smoke Exposure: No Advance Directives Date on File: 06/17/20 service: No Current occupational status: retired and disabled Cognitive needs: Yes Hearing needs: No Vision needs: Yes Review of Systems Const All systems reviewed & are unremarkable except as noted in HPI and below Physical Exam Extrem Other: Left ankle: Normal to inspection. She does tenderness over medial and lateral malleolus. No open wound or skin breakdown. She does have an area over the lateral side of the foot just in line to the base of the 5th proximal phalanx that appears to be old blood blister. No evidence of skin breakdown in that area. Office Procedures Casting/Splints 70903-Zkumo Leg Cast Application Procedure code (CPT) selection complete Results Reviewed Results Reviewed: Xrays were obtained in the office today and personally reviewed by me of the left ankle show interval healing of the lateral malleolus with evidence of instability of the mortise. Assessment & Plan Assessment & Plan (1) Left trimalleolar fracture: Code(s): S82.852A - Displaced trimalleolar fracture of left lower leg, initial encounter for closed fracture Qualifiers: Encounter type: subsequent encounter Fracture type: closed Fracture healing: with routine healing Qualified Code(s): S82.852D - Displaced trimalleolar fracture of left lower leg, subsequent encounter for closed fracture with routine healing Plan She was placed in a bulky short leg cast which she will remain non weight bearing for the next 3 weeks at which point she will return to the office with cast off, x-rays and hopefully transitioned to a boot. I did explain to her and her daughter that the fracture does appear to healing however there appears to have some displacement over the mortise which has the potential to cause instability and the development of OA. She will return in 3 weks with cast off and xrays Orders: Orders XR ankle LT min 3V Today M25.572 - Pain in left ankle and joints of left foot Patient Instructions: Scribed for Roger Sellers PA-C, by Christiano Marroquin medical orderly, on 05/09/2023 at 12:30 PM EST. IRoger PA-C, have personally reviewed and agree with the information entered by the scribe. Coding Level of Care Code Global (97058) Diagnoses Closed trimalleolar fracture of left ankle with routine healing, subsequent encounter S82.852D Encounter type: subsequent encounter Fracture type: closed Fracture healing: with routine healing CPT Codes Casting - CPT: 13825-Nabqd Leg Cast Application ([id number])
== END 2023-05-09 13:41 | disposition home or self-care (01) ==
PROVIDERS: PCP Physician Assistant; Visit Provider Physician Assistant
DX: S82.852D Displaced trimalleolar fracture of left lower leg, subsequent encounter for closed fracture with routine healing (principal)
CPT/HCPCS: 29405; 99024

== ENCOUNTER 2023-05-11 15:36 | Outpatient (AMB) | payer OTHER, SELFPAY ==
[2023-05-11 15:52] VITALS: BP 110/60; PULSE 90; O2SAT 98
--- NOTE | 2023-05-11 15:52 | MHC.PC.OV ---
Vital Signs 05/11/23 15:52 Height 5 ft 4 in BMI Reason not done Patient refused/unable BP 110/60 Blood Pressure Location Lt brachial Position Sitting Pulse 90 Pulse Source Pulse Oximeter Pulse Oximetry (%) 98 Oxygen Delivery Method Room Air Intake Visit Reasons: follow up Allergies dapagliflozin [From [facility]] Allergy (Unknown, Verified 05/11/23 16:07) yeast infection metformin Allergy (Unknown, Verified 05/11/23 16:07) Diarrhea amitriptyline Adverse Reaction (Intermediate, Verified 05/11/23 16:07) Anxiety clindamycin Adverse Reaction (Mild, Verified 05/11/23 16:07) Itching Medication List - Last Reconciled 05/11/23 by Micheal Biggs PA-C acetaminophen (Tylenol Extra Strength) 1,000 mg PO TID [air mattress Length of need- lifetime] Air mattress overlay As directed albuterol sulfate 90 mcg/actuation 2 puffs PO Q6H PRN atenolol 50 mg PO DAILY baclofen 10 mg PO BID 30 days blood pressure monitor (Blood Pressure Kit) As directed blood sugar diagnostic As directed blood sugar diagnostic ([employer] Ultra Test strips) test 3x's per day blood-glucose meter ([employer] Ultra2 Meter) test 3 times a day colchicine (Colcrys) 0.6 mg PO DAILY compr.stocking,knee,long,x-lrg WHITE SOCKS PLEASE dabigatran etexilate (Pradaxa) 150 mg PO BID 90 days docusate sodium 100 mg PO DAILY ergocalciferol (vitamin D2) 1,250 mcg PO MO flecainide 100 mg PO BID furosemide 20 mg PO DAILY gabapentin 300 mg PO BID 30 days hospital bed As directed humidifiers (Cool Mist Humidifier) As directed insulin aspart U-100 (Novolog FlexPen U-100 Insulin aspart) See Protocol sliding scale doses subcut TIDAC PRN insulin degludec (Tresiba FlexTouch U-100 insulin) 50 units subcut BID isosorbide mononitrate ER 30 mg PO DAILY 90 days lancets ([employer] UltraSoft 2 Lancet) test 3x's per day lancing device with lancets As directed lidocaine 5% 1 patch topical DAILY PRN morphine 15 mg PO Q6H PRN 5 days pantoprazole 40 mg PO DAILY@0630 pen needle, diabetic (BD Laury 2nd Gen Pen Needle) Use to inject insulin 4 times per day polyethylene glycol 3350 (Miralax) 17 grams PO DAILY potassium chloride ER 10 mEq PO DAILY sennosides (Senna Lax) 8.6 mg PO BID Shower Chair (Chair, shower) As directed simvastatin 40 mg PO BEDTIME sitagliptin phosphate (Januvia) 50 mg PO DAILY 90 days walker (Ultra-Light Rollator misc) As directed Tobacco use date assessed: 10/06/22 Fall risk assessment: 1 Fall in past year Last assessed Fall Risk: 05/11/23 Dental Screening Dental Screen Date: 05/11/23 Did you have a dental visit in the last 12 months?: Yes Did you have a dental problem in the last 6 months where you did not have access to dental care?: No Was dental information given to patient?: Patient has dentist HPI follow up HPI Details Patient is a 77-year-old female here today for a follow-up visit Patient has a past medical history significant for hypertension, hyperlipidemia, type 2 diabetes insulin dependency, AFIB, heart failure, COPD. Unfortunately recently fell and broke her ankle in March 2023. Now in a cast and is followed by [facility]. Concerns--> report over the last 3 days having a dry cough. Family requesting medicated cough syrup. . Dementia: Patient has progressed in intervention. Now has more help from family particularly her daughter whom is at today's office visit., She is mostly walker and wheelchair bound. Did suffer a fall resulting in a ankle fracture. .. DMII: Most recent A1c at 5.3 . Her diet has been much different as of late, reduced her carbs and sugar tremendously..? Continues on Tresiba b.i.d. dosing. PLAN: Will reduce her Tresiba dose to reduce episodes of hypoglycemia .. AFIB:? Continues on anticoagulation without any overt signs of bleeding.? Has follow-up with cardiology (Dr. Cheema).? Her most recent echocardiogram showing EF of 60-65% . Lumbar spondylosis: Was previously on low-dose oxycodone for chronic pain management. Since her recent hospitalizations due to altered mental status in the setting infections and polypharmacy her medications have been reduced and discontinued. At this time still using gabapentin 300 mg b.i.d. for her pain which has been helpful. .. [facility] Medical History (Updated 05/16/23 @ 07:34 by Micheal Biggs PA-C) Afib Unstable angina URI (upper respiratory infection) Mass of right kidney NADEGE (generalized anxiety disorder) GERD (gastroesophageal reflux disease) HTN (hypertension) Arthritis Insulin dependent type 1 diabetes mellitus Foot ulcer Fibromyalgia Coronary artery disease COPD (chronic obstructive pulmonary disease) Pacemaker Surgical History Hx laparoscopic cholecystectomy H/O vein stripping Tubal ligation status History of cataract surgery History of pacemaker Family History Father No problems noted. Mother No problems noted. Social History Household Members: Children Household Members Other:: son stays with her, family nearby [facility] Do you presently have visiting nurse or other home services: Yes Unable to assess alcohol history related to: Unknown Alcohol intake: never Patient Tobacco Use Status: Never used Tobacco e-Cigarette/Vaping Use: Never Used Second Hand Smoke Exposure: No Advance Directives Date on File: 06/17/20 service: No Current occupational status: retired and disabled Cognitive needs: Yes Hearing needs: No Vision needs: Yes Questionnaire Thrive Questionnaire Date Thrive assessed: 02/07/23 NADEGE-7 AMB Questionnaire NADEGE-7 Date NADEGE - 7 assessed: 10/06/22 Source: Developed by Drs. Valdo Garcia, Vale Carlton, Norm Sofia and colleagues, with an educational nedra from [employer]. Review of Systems Const Denies headache(s) Eyes Denies loss of vision ENT Denies vertigo, Denies dizziness, Denies headache(s) and Denies sore throat Card Denies chest pain, Denies leg edema and Denies lightheadedness Resp Denies cough, Denies hemoptysis and Denies wheezing GI Denies abdominal pain, Denies melena, Denies constipation, Denies diarrhea and Denies vomiting Denies urinary frequency, Denies dysuria and Denies urinary urgency Musc Denies arthralgias, Denies joint swelling, Denies numbness and Denies tingling Neuro Denies Abnormal speech present, Denies behavioral changes, Denies vertigo, Denies dizziness, Denies headache(s), Denies loss of vision, Denies memory loss, Denies numbness and Denies tingling Psych Denies anxiety, Denies behavioral changes, Denies depression, Denies memory loss and Denies panic attacks Tyron/Lymph Denies easy bleeding and Denies easy bruising Aller/Immun Denies wheezing Physical exam (Primary Care) Vital Signs: Last Vital Signs Pulse 90 05/11/23 15:52 BP 110/60 05/11/23 15:52 Pulse Ox 98 05/11/23 15:52 Oxygen Delivery Method Room Air 05/11/23 15:52 Tobacco/Smoking Status: Tobacco use Status Tobacco use date assessed 10/06/22 05/11/23 15:53 Patient Tobacco Use Status Never used Tobacco 05/11/23 15:53 e-Cigarette/Vaping Use Never Used 05/11/23 15:53 Thrive Assessment: Date of Thrive Assessment Date Thrive assessed 02/07/23 05/11/23 15:53 Const Other: Sitting comfortably in wheelchair. General: healthy appearing, no acute distress, alert and awake Nutritional Appearance: well nourished Orientation/consciousness: oriented to person, oriented to place and oriented to time HENMT Ears: TM's normal bilaterally General nose exam: Normal nasal mucous membranes and turbinates present Eyes Conjunctivae: conjunctivae normal Sclerae: sclerae normal Pupils: Equal, round and reactive pupils present Neck Neck: Yes no lymphadenopathy and Yes no JVD Thyroid: Thyroid normal Carotids: no bruits Resp Effort & Inspection: normal respiratory effort and not tachypneic Auscultation: no crackles, no rales, no rhonchi and no wheezes Cardio Rate: regular rate Rhythm: regular rhythm Heart sounds: no murmurs and normal S1 and S2 GI Palpation (GI): Soft to palpation, nontender, no hepatomegaly and no splenomegaly Auscultation: normal bowel sounds Skin General skin exam: no rashes or lesions noted and dry skin Neuro General: oriented to person, oriented to place and oriented to time Cranial nerves: Yes Equal, round and reactive pupils present Speech: No Abnormal speech present Gait exam (Neuro): Normal gait present Motor exam (neuro): no tremor noted Extrem Right upper extremity: full ROM Left upper extremity: full ROM Right lower extremity: full ROM; no edema Left lower extremity: full ROM; no edema Psych Mental Status: mental status grossly normal Speech and movement: Normal speech and movement present Affect: normal affect Attitude: cooperative Thought process: Normal thought process present Results AMB Hemoglobin A1c AMB Hemoglobin A1c 5.3 % Last Edit by THAI Rich on 05/11/23 16:09 Results Reviewed Results Reviewed: Laboratory Last Values Hgb A1c (Clinic) 5.3 % (4.0-6.0) 05/11/23 15:54 Assessment and Plan Assessment & Plan (1) Type 2 diabetes mellitus: Code(s): E11.9 - Type 2 diabetes mellitus without complications Qualifiers: Diabetes mellitus complication detail: with polyneuropathy Diabetes mellitus complication status: with neurologic complications Diabetes mellitus long term care phlebotomist insulin use: with long term care phlebotomist use Qualified Code(s): E11.42 - Type 2 diabetes mellitus with diabetic polyneuropathy; Z79.4 - exterminator helper (current) use of insulin Plan: Patient's type 2 diabetes now well controlled. A1c today at goal below 7.0. Will reduce her doses of insulin to reduced any events of hypoglycemia. Family reports she is rarely using short-acting insulin. Will reduce her Tresiba 20 units b.i.d.. (2) Neuropathy: Code(s): G62.9 - Polyneuropathy, unspecified Plan: Will continue gabapentin 300 b.i.d for both her neuropathy and her lower lumbar spine chronic pain. Oxycodone has been discontinued. There was a few hospitalizations over the last 6 months with concerns dementia on polypharmacy. (3) Bronchitis: Code(s): J40 - Bronchitis, not specified as acute or chronic Plan: Will supply medicated cough syrup for short-term only (4) Afib: Code(s): I48.91 - Unspecified atrial fibrillation Qualifiers: Atrial fibrillation type: longstanding persistent Qualified Code(s): I48.11 - Longstanding persistent atrial fibrillation Plan: Patient continues on Pradaxa for anticoagulation without any signs of overt bleeding. Also continues on flecainide for rhythm control. Advised family to call her cardiology office to reestablish care as likely has not been seen in quite some time. Orders: Orders AMB Hemoglobin A1c 05/11/23 E11.9 - Type 2 diabetes mellitus without complications Lipid Panel 05/11/23 E78.2 - Mixed hyperlipidemia Comprehensive [place]. Panel Fast 05/11/23 I10 - Essential (primary) hypertension Complete Blood Count no Diff 05/11/23 E11.42 - Type 2 diabetes mellitus with diabetic polyneuropathy, Z79.4 - group home (current) use of insulin Medications: New codeine-guaifenesin 10-100 mg/5 mL 5 mL PO Q6H 5 days PRN 120 mL 0RF cough J40 - Bronchitis, not specified as acute or chronic chair, wheel (Wheel chair) As directed 1 ea 0RF M54.5 - Low back pain, R26.89 - Other abnormalities of gait and mobility, S82.852A - Displaced trimalleolar fracture of left lower leg, initial encounter for closed fracture Changed From insulin degludec (Tresiba FlexTouch U-100 insulin) 50 units subcut BID E11.42 - Type 2 diabetes mellitus with diabetic polyneuropathy, Z79.4 - exterminator helper (current) use of insulin To insulin degludec (Tresiba FlexTouch U-100 insulin) 20 units subcut BID E11.42 - Type 2 diabetes mellitus with diabetic polyneuropathy, Z79.4 - exterminator helper (current) use of insulin Refilled gabapentin 300 mg PO BID 30 days 60 caps 6RF M79.7 - Fibromyalgia hospital bed As directed 1 ea 0RF G47.34 - Idiopathic sleep related nonobstructive alveolar hypoventilation, I50.9 - Heart failure, unspecified, R26.89 - Other abnormalities of gait and mobility, R29.6 - Repeated falls, R53.81 - Other malaise Discontinued morphine Partial Fill upon patient request. Discontinued Reason: Doctor's Order 15 mg PO Q6H 5 days PRN 10 tabs 0RF pain Coding Level of Care Code Est Pt Level 4 (42024) Diagnoses Type 2 diabetes mellitus with diabetic polyneuropathy, with long-term current use of insulin E11.42; Z79.4 Diabetes mellitus complication detail: with polyneuropathy Diabetes mellitus complication status: with neurologic complications Diabetes mellitus shelter insulin use: with shelter use Neuropathy G62.9 Bronchitis J40 Longstanding persistent atrial fibrillation I48.11 Atrial fibrillation type: longstanding persistent
== END 2023-05-11 16:32 | disposition home or self-care (01) ==
PROVIDERS: PCP Physician Assistant; Visit Provider Physician Assistant
DX: E11.9 Type 2 diabetes mellitus without complications (principal)
CPT/HCPCS: 83036; 99214

== ENCOUNTER 2023-06-01 10:25 | Outpatient (REF) | payer OTHER, SELFPAY ==
--- NOTE | ~2023-06-01 | XR_ITS ---
EXAMINATION: XR ANKLE, LEFT CLINICAL INFORMATION: Pain. COMPARISON: None available. TECHNIQUE: AP, lateral, and mortise views of the left ankle. FINDINGS: Bony mineralization is normal. A displaced fracture is redemonstrated of the left medial malleolus. There is a healing, displaced oblique fracture of the distal left fibular metaphysis, with good callus formation. Again, the ankle mortise is widened medially. No joint effusion is seen. Boehler's angle is normal. There are large posterior and moderate plantar calcaneal spurs. There are degenerative changes of the midfoot. There is generalized mild soft tissue swelling. There are soft tissue calcifications of the medial calf, which can be seen in association with venous insufficiency. XR/XR ankle LT min 3V IMPRESSION: 1. There are again medial malleolus and distal fibular fractures. The medial malleolus fracture remains displaced, with no significant new callus formation. The lateral malleolus fracture shows good periosteal callus formation and stable alignment. 2. No left ankle joint effusion is seen. 3. There are calcaneal spurs. 4. There are degenerative changes of the dorsal midfoot.
== END 2023-06-01 10:26 | disposition home or self-care (01) ==
LOC: HO.HOSX 10:25
PROVIDERS: Visit Provider Physician Assistant
DX: M25.572 Pain in left ankle and joints of left foot (principal); S82.852D Displaced trimalleolar fracture of left lower leg, subsequent encounter for closed fracture with routine healing; X58.XXXD Exposure to other specified factors, subsequent encounter
CPT/HCPCS: 73610; 99212

== ENCOUNTER 2023-06-01 11:25 | Outpatient (AMB) | payer OTHER, SELFPAY ==
--- NOTE | 2023-06-01 11:41 | MHC.OFFVIS ---
Intake Vital Signs 06/01/23 11:42 Height 5 ft 4 in Intake Visit Reasons: OV- pradeep ankle fx Cast Off/ xrays Skin check Intake Note: Lizzie is a 77 year old female who presents today for a skin check s/p left ankle fx, DOI 03/15/23. Cast was removed and x rays were obtained. Patient reports she is doing well no pain or discomfort. Allergies dapagliflozin [From [facility]] Allergy (Unknown, Verified 06/01/23 11:42) yeast infection metformin Allergy (Unknown, Verified 06/01/23 11:42) Diarrhea amitriptyline Adverse Reaction (Intermediate, Verified 06/01/23 11:42) Anxiety clindamycin Adverse Reaction (Mild, Verified 06/01/23 11:42) Itching HPI OV- pradeep ankle fx Cast Off/ xrays Skin check HPI Details 77-year-old female, who is Wolof speaking, presents in the office today for a skin check and follow up to a left trimalleolar fracture, which occurred on 04/04/2023 status post doing physical therapy at home she became tired so she sat down and accidentally sat on her left ankle. I last saw the patient in the office on 04/18/2023 when she was transitioned to a cast and was instructed to remain non-weight bearing, only allowing the foot on the ground to pivot. While in the office she states she has no pain or discomfort. [facility] Medical History (Updated 05/16/23 @ 07:34 by Micheal Biggs PA-C) Afib Unstable angina URI (upper respiratory infection) Mass of right kidney NADEGE (generalized anxiety disorder) GERD (gastroesophageal reflux disease) HTN (hypertension) Arthritis Insulin dependent type 1 diabetes mellitus Foot ulcer Fibromyalgia Coronary artery disease COPD (chronic obstructive pulmonary disease) Pacemaker Surgical History Hx laparoscopic cholecystectomy H/O vein stripping Tubal ligation status History of cataract surgery History of pacemaker Family History Father No problems noted. Mother No problems noted. Social History Household Members: Children Household Members Other:: son stays with her, family nearby Housing: Condominium Do you presently have visiting nurse or other home services: Yes Unable to assess alcohol history related to: Unknown Alcohol intake: never Patient Tobacco Use Status: Never used Tobacco e-Cigarette/Vaping Use: Never Used Second Hand Smoke Exposure: No Advance Directives Date on File: 06/17/20 service: No Current occupational status: retired and disabled Cognitive needs: Yes Hearing needs: No Vision needs: Yes Review of Systems Const All systems reviewed & are unremarkable except as noted in HPI and below Physical Exam Const General: cooperative, healthy appearing and no acute distress Resp Effort & Inspection: normal respiratory effort and able to speak in complete sentences Cardio Rate: regular rate Peripheral pulses: Peripheral pulses 2+ throughout GI Palpation (GI): Soft to palpation Skin Lesions: no lesions Rashes: no rashes Extrem Other: Left ankle: No erythema. No open wounds or abrasions. No signs of infection. Able to slightly dorsiflex and plantarflex. Sensation intact. Pedal pulse intact. Assessment & Plan Assessment & Plan (1) Left trimalleolar fracture: Code(s): S82.852A - Displaced trimalleolar fracture of left lower leg, initial encounter for closed fracture Qualifiers: Encounter type: subsequent encounter Fracture healing: with routine healing Fracture type: closed Qualified Code(s): S82.852D - Displaced trimalleolar fracture of left lower leg, subsequent encounter for closed fracture with routine healing Plan Ms. Lemus is a 77-year-old female, who is Wolof speaking, presents in the office today for a skin check and follow up to a left trimalleolar fracture, which occurred on 04/04/2023 status post doing physical therapy at home she became tired so she sat down and accidentally sat on her left ankle. I last saw the patient in the office on 04/18/2023 when she was transitioned to a cast and was instructed to remain non-weight bearing, only allowing the foot on the ground to pivot. While in the office she states she has no pain or discomfort. The x-rays were reviewed with Dr. Mariee and a collaborative treatment plan was created. The patient will be placed in a tall walking boot, off the shelf, while in the office today. She may begin to weight bear as tolerated. Follow up will be in 6 weeks with repeat x-rays, or sooner if needed. X-rays of the left ankle which were obtained while in the office today and were reviewed by me, Mayte Trevino PA-C, redemonstrated a medial malleolar fracture and a lateral malleolar fracture with incomplete healing. Orders: Orders XR ankle LT min 3V Today M25.579 - Pain in unspecified ankle and joints of unspecified foot Patient Instructions: Scribed for Mayte Trevino PA-C by Yolanda Womack medical lab director, on 06/01/2023 at 11:25 am, EST. Coding Level of Care Code Global (65748) Diagnoses Closed trimalleolar fracture of left ankle with routine healing, subsequent encounter S82.852D Encounter type: subsequent encounter Fracture healing: with routine healing Fracture type: closed
== END 2023-06-01 12:02 | disposition home or self-care (01) ==
PROVIDERS: PCP Physician Assistant; Visit Provider Physician Assistant
DX: S82.852D Displaced trimalleolar fracture of left lower leg, subsequent encounter for closed fracture with routine healing (principal)
CPT/HCPCS: 99024

== ENCOUNTER 2023-06-03 10:46 | Emergency (ER) | payer OTHER, SELFPAY ==
--- NOTE | ~2023-06-03 | CT_ITS ---
EXAMINATION: CT LUMBAR SPINE WITHOUT CONTRAST CLINICAL INFORMATION: Fall, pain COMPARISON: CT abdomen and pelvis 02/07/2023 TECHNIQUE: A multidetector CT acquisition of the lumbar spine is obtained without contrast. This CT examination was performed using dose optimization techniques as appropriate, variously including the following: *Automated exposure control *Adjustment of mA and/or kV according to patient size (this includes techniques or standardized protocols for targeted exams where dose is matched to indication/reason for exam; i.e. extremities or head) *Use of iterative reconstruction technique DLP: 723 mGy-cm FINDINGS: Please note that artifact related to patient's body habitus somewhat limits assessment of the osseous structures. Within this limitation, there is a new slightly distracted comminuted fracture of the L1 vertebral body with the fracture plane violating the anterior cortex and extending obliquely to the right upper lateral cortex and to left inferior lateral cortex through a bridging lateral paraspinal phyte on the left. There is no extension into the posterior elements. A small amount of paravertebral/prevertebral hemorrhage/infiltration is seen. There may be slight progression of approximately 60% height loss associated of the L4 vertebral body likely from a comminuted compression fracture with associated degenerative change along the upper endplate rather than discitis osteomyelitis, particularly given relative preservation of the opposing L3 inferior endplate and the presence of adjacent vacuum disc phenomenon. Stable mild bony retropulsion of the L4 upper endplate indenting the thecal sac which in conjunction with spondylosis contributes to severe spinal canal and subarticular zone narrowing. Stable height loss associated with a chronic L5 upper endplate compression fracture. There is straightening of the normal lumbar lordosis. Multilevel disc space narrowing and scattered vacuum disc phenomenon with bridging prevertebral and paraspinal disc osteophytes. 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 There is apparent moderate to severe L4-L5, moderate L5-S1, and mild L2-L3 spinal canal stenosis and multilevel neural foraminal narrowing, most pronounced and severe on the left at L3-L4 and L5-S1 with mass effect along the exiting left L3 and L5 nerve roots, respectively. There is mild fatty atrophy of the paraspinal musculature. Partially imaged fatty atrophy of the gluteal compartment musculature, most pronounced of the gluteus fang muscles. Lobulated renal contour bilaterally and exophytic left midpole renal lesion, presumably cyst again seen. Scattered calcific atherosclerotic disease. Nonspecific thickening of the peritoneal reflections mild retroperitoneal achiness/fat stranding. Prior cholecystectomy.. Partially imaged leiomyomatous uterus.The abdominal aorta is of normal contour and caliber. Bridging ventral osteophytosis across the right sacroiliac joint. CT/CT lumbar spine wo IV con IMPRESSION: 1. New slightly distracted comminuted fracture of the L1 vertebral body violating the anterior cortex, right upper lateral cortex and left inferior lateral cortex through a bridging lateral paraspinal phyte on the left. No extension into the posterior elements. A small amount of paravertebral/prevertebral hemorrhage/infiltration is seen. 2. Query slight progression of approximately 60% height loss associated of the L4 vertebral body likely from a comminuted compression fracture with associated degenerative change along the upper endplate rather than discitis osteomyelitis, particularly given relative preservation of the opposing L3 inferior endplate and the presence of adjacent vacuum disc phenomenon. Stable mild bony retropulsion of the L4 upper endplate indenting the thecal sac which in conjunction with spondylosis contributes to severe spinal canal and subarticular zone narrowing. 3. 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
--- NOTE | 2023-06-03 10:50 | ED_ITS ---
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 Mode of arrival: EMS Limitations: language barrier Related Data Home Medications Medication Instructions Recorded Confirmed blood sugar diagnostic #10 ea 03/12/20 05/11/23 docusate sodium 100 mg capsule 100 mg PO DAILY 09/10/22 05/11/23 insulin aspart U-100 100 unit/mL See Protocol subcut TIDAC PRN 09/10/22 05/11/23 (3 mL) subcutaneous pen (Novolog Hyperglycemia FlexPen U-100 Insulin aspart) pantoprazole 40 mg tablet,delayed 40 mg PO DAILY@0630 12/01/22 05/11/23 release polyethylene glycol 3350 17 gram 17 g PO DAILY 12/01/22 05/11/23 oral powder packet (Miralax) sennosides 8.6 mg tablet (Senna 8.6 mg PO BID 12/01/22 05/11/23 Lax) simvastatin 40 mg tablet 40 mg PO BEDTIME 02/17/23 05/11/23 acetaminophen 500 mg tablet 1,000 mg PO TID fever or pain 03/07/23 05/11/23 (Tylenol Extra Strength) ergocalciferol (vitamin D2) 1,250 1,250 mcg PO MO 03/07/23 05/11/23 mcg (50,000 unit) capsule potassium chloride 10 mEq 10 meq PO DAILY 03/07/23 05/11/23 capsule,extended release furosemide 20 mg tablet 20 mg PO DAILY 04/04/23 05/11/23 insulin degludec 100 unit/mL (3 20 unit subcut BID 05/11/23 05/11/23 mL) subcutaneous pen (Tresiba FlexTouch U-100 insulin) Previous Rx's Medication Instructions Recorded blood pressure monitor (Blood #1 ea 03/12/20 Pressure Kit) humidifiers (Cool Mist Humidifier) #1 ea 03/12/20 Shower Chair (Chair, shower) #1 ea 09/14/20 walker (Ultra-Light Rollator misc) #1 ea 06/30/21 lancing device with lancets kit #1 ea 03/24/22 colchicine 0.6 mg tablet (Colcrys) 0.6 mg PO DAILY #90 tabs 07/08/22 isosorbide mononitrate 30 mg 30 mg PO DAILY 90 days #90 tabs 07/08/22 tablet,extended release 24 hr sitagliptin phosphate 50 mg tablet 50 mg PO DAILY 90 days #90 tabs 07/08/22 (Januvia) flecainide 100 mg tablet 100 mg PO BID #180 tabs 09/14/22 blood sugar diagnostic (OneTouch #100 ea 10/07/22 Ultra Test strips) lancets 30 gauge (OneTouch #200 ea 10/07/22 UltraSoft 2 Lancet) pen needle, diabetic 32 gauge x #300 ea 10/17/22 (BD Laury 2nd Gen Pen Needle) compr.stocking,knee,long,x-lrg #12 ea 11/08/22 atenolol 50 mg tablet 50 mg PO DAILY #30 tabs 12/13/22 lidocaine 5 % topical patch 1 patch topical DAILY PRN pain #15 02/01/23 ea baclofen 10 mg tablet 10 mg PO BID 30 days #60 tabs 03/22/23 dabigatran etexilate 150 mg 150 mg PO BID 90 days #180 caps 03/22/23 capsule (Pradaxa) Air mattress overlay #1 ea 04/11/23 blood-glucose meter (OneTouch #1 ea 04/11/23 Ultra2 Meter) air mattress #1 ea 04/20/23 chair, wheel (Wheel chair) #1 ea 05/11/23 codeine 10 mg-guaifenesin 100 mg/5 5 ml PO Q6H PRN cough 5 days #120 05/11/23 mL oral liquid mL gabapentin 300 mg capsule 300 mg PO BID 30 days #60 caps 05/11/23 hospital bed #1 ea 05/11/23 albuterol sulfate 90 mcg/actuation 2 puff PO Q6H PRN bronchospasm 05/19/23 aerosol inhaler #8.5 grams Allergies Allergy/AdvReac Type Severity Reaction Status Date / Time dapagliflozin [From [facility]] Allergy Unknown yeast Verified 06/01/23 11:42 infection metformin Allergy Unknown Diarrhea Verified 06/01/23 11:42 amitriptyline AdvReac Intermediate Anxiety Verified 06/01/23 11:42 clindamycin AdvReac Mild Itching Verified 06/01/23 11:42 [facility] Past Medical History Onset Date is defined in the Problem List Problems that require an onset date and time if occurred within 24 hrs of arrival to the ED Aortic Dissection and Rupture; Neurologic impairment; Cardiopulmonary Arrest; Endotracheal Intubation; Insertion or Replacement of Mechanical Circulatory Assist Device Medical History (Updated 05/16/23 @ 07:34 by Micheal Biggs PA-C) Afib Unstable angina URI (upper respiratory infection) Mass of right kidney NADEGE (generalized anxiety disorder) GERD (gastroesophageal reflux disease) HTN (hypertension) Arthritis Insulin dependent type 1 diabetes mellitus Foot ulcer Fibromyalgia Coronary artery disease COPD (chronic obstructive pulmonary disease) Pacemaker Surgical History Hx laparoscopic cholecystectomy H/O vein stripping Tubal ligation status History of cataract surgery History of pacemaker Family History Family History Father No problems noted. Mother No problems noted. Social History Social History Household Members: Children Household Members Other:: son stays with her, family nearby Housing: Condominium Do you presently have visiting nurse or other home services: Yes Unable to assess alcohol history related to: Unknown Alcohol intake: never Patient Tobacco Use Status: Never used Tobacco e-Cigarette/Vaping Use: Never Used Second Hand Smoke Exposure: No Advance Directives Date on File: 06/17/20 service: No Current occupational status: retired and disabled Cognitive needs: Yes Hearing needs: No Vision needs: Yes Discharge Plan Discharge Prescriptions: No Action (DME) Chair, shower Misc See Rx Instructions .ROUTE .MEDSUPPLY Qty: 1 0RF Rx Instructions: As directed (DME) lancing device with lancets Kit See Rx Instructions .Route Qty: 1 0RF Rx Instructions: As directed colchicine [Colcrys] 0.6 mg tablet 0.6 mg PO DAILY Qty: 90 2RF Januvia 50 mg tablet 50 mg PO DAILY 90 Days Qty: 90 3RF isosorbide mononitrate 30 mg tablet extended release 24 hr 30 mg PO DAILY 90 Days Qty: 90 2RF (DME) OneTouch Ultra Test Strip See Rx Instructions .Route Qty: 100 5RF Rx Instructions: test 3x's per day (DME) lancets [OneTouch UltraSoft 2 Lancet] 30 gauge misc See Rx Instructions .Route Qty: 200 5RF Rx Instructions: test 3x's per day (DME) pen needle, diabetic [BD Laury 2nd Gen Pen Needle] 32 gauge x 5/32 needle See Rx Instructions .Route Qty: 300 3RF Rx Instructions: Use to inject insulin 4 times per day (DME) compr.stocking,knee,long,x-lrg Misc See Rx Instructions .Route Qty: 12 1RF Rx Instructions: WHITE SOCKS PLEASE atenolol 50 mg tablet 50 mg PO DAILY Qty: 30 3RF lidocaine 5 % adhesive patch,medicated 1 patch topical DAILY PRN (Reason: pain) Qty: 15 3RF Rx Instructions: leave on most painful area for up to 12 hrs Pradaxa 150 mg capsule 150 mg PO BID 90 Days Qty: 180 1RF baclofen 10 mg tablet 10 mg PO BID 30 Days Qty: 60 1RF (DME) blood-glucose meter [[employer] Ultra2 Meter] Misc See Rx Instructions .Route Qty: 1 0RF Rx Instructions: test 3 times a day (DME) Air mattress overlay Misc See Rx Instructions .Route Qty: 1 0RF Rx Instructions: As directed (DME) air mattress See Rx Instructions .Route .MEDSUPPLY Qty: 1 0RF Rx Instructions: Length of need- lifetime albuterol sulfate 90 mcg/actuation HFA aerosol inhaler 2 puff PO Q6H PRN (Reason: bronchospasm) Qty: 8.5 0RF pantoprazole 40 mg tablet,delayed release (DR/EC) 40 mg PO DAILY@0630 polyethylene glycol 3350 [Miralax] 17 gram Powder In Packet 17 g PO DAILY sennosides [Senna Lax] 8.6 mg tablet 8.6 mg PO BID simvastatin 40 mg tablet 40 mg PO BEDTIME potassium chloride 10 mEq Capsule, Extended Release 10 meq PO DAILY ergocalciferol (vitamin D2) 1,250 mcg (50,000 unit) Capsule 1,250 mcg PO MO acetaminophen [Tylenol Extra Strength] 500 mg tablet 1,000 mg PO TID furosemide 20 mg tablet 20 mg PO DAILY docusate sodium 100 mg capsule 100 mg PO DAILY insulin aspart U-100 [Novolog FlexPen U-100 Insulin] 100 unit/mL (3 mL) insulin pen See Protocol subcut TIDAC PRN (Reason: Hyperglycemia) Protocol: Insulin Correction Scale Less than or equal to 110 ---- Give (units): 0 111 to 150 Give (units): 0 151 to 200 Give (units): 2 201 to 250 Give (units): 4 251 to 300 Give (units): 6 301 to 350 Give (units): 8 Greater than 350 Give (units): 10 Call MD if Blood Glucose > : 350 Rx Instructions: Per sliding scale 0-24 units [place] [place] sugar [place] Strip See Rx Instructions Not Applicable QID Qty: 10 Rx Instructions: As directed [place] [place] blood pressure monitor [Blood Pressure Kit] Kit See Rx Instructions .ROUTE .MEDSUPPLY Qty: 1 0RF Rx Instructions: As directed [place] [facility] [place] humidifiers [Cool Mist Humidifier] Misc See Rx Instructions .ROUTE .MEDSUPPLY Qty: 1 0RF Rx Instructions: As directed [place] [place] Ultra-Light Rollator Misc See Rx Instructions .Route Qty: 1 0RF Rx Instructions: As directed flecainide 100 mg tablet 100 mg PO BID Qty: 180 1RF codeine-guaifenesin 10-100 mg/5 mL liquid 5 ml PO Q6H PRN (Reason: cough) 5 Days Qty: 120 0RF gabapentin 300 mg capsule 300 mg PO BID 30 Days Qty: 60 6RF [place] [place] Kit See Rx Instructions .Route Qty: 1 0RF Rx Instructions: As directed [place] [place] Wheel chair Kit See Rx Instructions .Route Qty: 1 0RF Rx Instructions: As directed insulin degludec [Tresiba FlexTouch U-100] 100 unit/mL (3 mL) insulin pen 20 unit subcut BID
[2023-06-03 10:52] VITALS: BP 132/70; BP 137/47; PULSE 92; PULSE 98; RESP 16; TEMP 36.6; O2SAT 92; O2SAT 95; BMI 32.3
--- NOTE | 2023-06-03 11:30 | ED_ITS ---
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 Per patient on Monday she had a trip and fall on an object in her living room. She landed on her buttocks. There was no head strike or loss of consciousness. Per family she started complaining of lower back pain last night. She denies any radiation of back pain. No associated weakness, numbness, tingling of lower extremities. No numbness in the groin. No bowel or bladder incontinence. No fevers or chills. Patient has not tried any uokq-rxl-[id number] medications. She is currently on antibiotic of unknown Related Data Home Medications Medication Instructions Recorded Confirmed blood sugar diagnostic #10 ea 03/12/20 05/11/23 docusate sodium 100 mg capsule 100 mg PO DAILY 09/10/22 05/11/23 insulin aspart U-100 100 unit/mL See Protocol subcut TIDAC PRN 09/10/22 05/11/23 (3 mL) subcutaneous pen (Novolog Hyperglycemia FlexPen U-100 Insulin aspart) pantoprazole 40 mg tablet,delayed 40 mg PO DAILY@0630 12/01/22 05/11/23 release polyethylene glycol 3350 17 gram 17 g PO DAILY 12/01/22 05/11/23 oral powder packet (Miralax) sennosides 8.6 mg tablet (Senna 8.6 mg PO BID 12/01/22 05/11/23 Lax) simvastatin 40 mg tablet 40 mg PO BEDTIME 02/17/23 05/11/23 acetaminophen 500 mg tablet 1,000 mg PO TID fever or pain 03/07/23 05/11/23 (Tylenol Extra Strength) ergocalciferol (vitamin D2) 1,250 1,250 mcg PO MO 03/07/23 05/11/23 mcg (50,000 unit) capsule potassium chloride 10 mEq 10 meq PO DAILY 03/07/23 05/11/23 capsule,extended release furosemide 20 mg tablet 20 mg PO DAILY 04/04/23 05/11/23 insulin degludec 100 unit/mL (3 20 unit subcut BID 05/11/23 05/11/23 mL) subcutaneous pen (Tresiba FlexTouch U-100 insulin) Previous Rx's Medication Instructions Recorded blood pressure monitor (Blood #1 ea 03/12/20 Pressure Kit) humidifiers (Cool Mist Humidifier) #1 ea 03/12/20 Shower Chair (Chair, shower) #1 ea 09/14/20 walker (Ultra-Light Rollator misc) #1 ea 06/30/21 lancing device with lancets kit #1 ea 03/24/22 colchicine 0.6 mg tablet (Colcrys) 0.6 mg PO DAILY #90 tabs 07/08/22 isosorbide mononitrate 30 mg 30 mg PO DAILY 90 days #90 tabs 07/08/22 tablet,extended release 24 hr sitagliptin phosphate 50 mg tablet 50 mg PO DAILY 90 days #90 tabs 07/08/22 (Januvia) flecainide 100 mg tablet 100 mg PO BID #180 tabs 09/14/22 blood sugar diagnostic (OneTouch #100 ea 10/07/22 Ultra Test strips) lancets 30 gauge (OneTouch #200 ea 10/07/22 UltraSoft 2 Lancet) pen needle, diabetic 32 gauge x #300 ea 10/17/22 (BD Laury 2nd Gen Pen Needle) compr.stocking,knee,long,x-lrg #12 ea 11/08/22 atenolol 50 mg tablet 50 mg PO DAILY #30 tabs 12/13/22 lidocaine 5 % topical patch 1 patch topical DAILY PRN pain #15 02/01/23 ea baclofen 10 mg tablet 10 mg PO BID 30 days #60 tabs 03/22/23 dabigatran etexilate 150 mg 150 mg PO BID 90 days #180 caps 03/22/23 capsule (Pradaxa) Air mattress overlay #1 ea 04/11/23 blood-glucose meter (OneTouch #1 ea 04/11/23 Ultra2 Meter) air mattress #1 ea 04/20/23 chair, wheel (Wheel chair) #1 ea 05/11/23 codeine 10 mg-guaifenesin 100 mg/5 5 ml PO Q6H PRN cough 5 days #120 05/11/23 mL oral liquid mL gabapentin 300 mg capsule 300 mg PO BID 30 days #60 caps 05/11/23 hospital bed #1 ea 05/11/23 albuterol sulfate 90 mcg/actuation 2 puff PO Q6H PRN bronchospasm 05/19/23 aerosol inhaler #8.5 grams lidocaine 5 % topical patch 1 patch topical DAILY #30 ea 06/03/23 (Lidoderm) oxycodone 5 mg tablet 5 mg PO Q8H PRN pain #9 tabs 06/03/23 Allergies Allergy/AdvReac Type Severity Reaction Status Date / Time dapagliflozin [From [facility]] Allergy Unknown yeast Verified 06/01/23 11:42 infection metformin Allergy Unknown Diarrhea Verified 06/01/23 11:42 amitriptyline AdvReac Intermediate Anxiety Verified 06/01/23 11:42 clindamycin AdvReac Mild Itching Verified 06/01/23 11:42 Review of Systems 2 Review of Systems: Yes all other systems are reviewed and are negative Constitutional: Constitutional: Reports no additional constitutional complaints, Denies body ache(s), Denies chills, Denies fever(s), Denies headache(s) and Denies weakness Eyes: Eyes: Reports no additional eye complaints and Denies change in vision ENT: Reports system reviewed and no additional complaints, except as documented, Denies dizziness, Denies headache(s), Denies nasal congestion, Denies nasal discharge and Denies neck pain Cardiovascular: Cardiovascular: Reports no additional cardiovascular complaints, Denies chest pain, Denies leg edema and Denies dyspnea Respiratory: Respiratory: Reports no additional respiratory complaints, Denies cough and Denies dyspnea Gastrointestinal: Gastrointestinal: Reports no additional gastrointestinal complaints, Denies abdominal pain, Denies diarrhea, Denies nausea and Denies vomiting Genitourinary: Genitourinary: Reports no additional female genitourinary complaints and Denies urinary incontinence Musculoskeletal: Musculoskeletal: Reports no additional musculoskeletal complaints, Denies back pain, Denies arthralgias, Denies joint swelling, Denies neck pain, Denies numbness and Denies tingling Integumentary/Breasts: Skin/Breast: Reports system reviewed and no additional complaints, except as docu and Denies rash Neurologic: Reports system reviewed and no additional complaints, except as documented, Denies Abnormal speech present, Denies dizziness, Denies headache(s), Denies numbness, Denies tingling and Denies weakness PMFSH Past Medical History Onset Date is defined in the Problem List Problems that require an onset date and time if occurred within 24 hrs of arrival to the ED Aortic Dissection and Rupture; Neurologic impairment; Cardiopulmonary Arrest; Endotracheal Intubation; Insertion or Replacement of Mechanical Circulatory Assist Device Medical History (Updated 06/03/23 @ 15:10 by Liudmila Deleon NP) Afib Unstable angina URI (upper respiratory infection) Mass of right kidney NADEGE (generalized anxiety disorder) GERD (gastroesophageal reflux disease) HTN (hypertension) Arthritis Insulin dependent type 1 diabetes mellitus Foot ulcer Fibromyalgia Coronary artery disease COPD (chronic obstructive pulmonary disease) Pacemaker Surgical History Hx laparoscopic cholecystectomy H/O vein stripping Tubal ligation status History of cataract surgery History of pacemaker Family History Family History Father No problems noted. Mother No problems noted. Social History Social History Household Members: Children Household Members Other:: son stays with her, family nearby Housing: Condominium Do you presently have visiting nurse or other home services: Yes Unable to assess alcohol history related to: Unknown Alcohol intake: never Patient Tobacco Use Status: Never used Tobacco Smoked in Last 30 Days: No e-Cigarette/Vaping Use: Never Used Second Hand Smoke Exposure: No Use of substances other than those prescribed or required for medical reasons: No Advance Directives: Yes Advance Directives on File: Yes Advance Directives Date on File: 06/17/20 service: No Current occupational status: retired and disabled Cognitive needs: Yes Hearing needs: No Vision needs: Yes Physical Exam 2 Vital Signs: Vital Signs: Last Vital Signs Temp 98.0 F 06/03/23 13:01 Pulse 73 06/03/23 13:01 Resp 16 06/03/23 13:01 BP 129/52 L 06/03/23 13:01 Pulse Ox 94 06/03/23 13:01 O2 Del Method Room Air 06/03/23 13:01 BMI result Body Mass Index 32.3 Const: General: cooperative, healthy appearing, comfortable and no acute distress Orientation/consciousness: patient oriented x3 Limitations: no limitations HEENT: Head: Yes normal to inspection Ears: hearing grossly normal bilaterally General nose exam: Normal external nose present Face and sinus: Yes normal facial exam Mouth: Normal oral and palatal mucosa present Throat: Yes posterior oropharynx normal Eyes: General: appearance normal, both eyes and all related structures P upils: Equal, round and reactive pupils present Neck: Neck: Yes normal visual inspection Chest: Chest palpation & inspection: normal inspection of the chest Resp: Effort & Inspection: normal respiratory effort Auscultation: clear to auscultation bilaterally Cardio: Rate: regular rate Rhythm: regular rhythm Peripheral pulses: P eripheral pulses 2+ throughout GI: Inspection: Yes normal to inspection Palpation (GI): Soft to palpation and nontender Auscultation: normal bowel sounds : General: Yes no CVA tenderness Back/Spine/Pelvis: Other: Tenderness the lumbar mid spine with no step-offs deformities. This is worsened with bilateral straight leg raise. Back: no CVA tenderness Thoracic/Lumbar Spine: thoracic and lumbar spine normal to inspection Skin: General skin exam: no rashes or lesions noted Neuro: General: patient oriented x3, moves all extremities, no focal motor deficits and normal sensation to monofilament Cranial nerves: Yes Equal, round and reactive pupils present Cognition (Neuro): normal cognition S peech: No Abnormal speech present Motor exam (neuro): 5/5 motor strength present throughout Sensory Exam: Normal double simultaneous stimulation for sensation Extrem: General: Yes normal to inspection Course Course Course Narrative: Reviewed findings of CT scan with both the patient and her daughter. Again they do not feel the patient needs to remain in the emergency room for physical therapy evaluation and case management involvement for possible short-term rehab placement. They feel that they can manage at home. Therefore will arrange for discharge. Reviewed worrisome signs and symptoms of when to return to the emergency room. Comfortable plan for discharge home Medications Administered Discontinued Medications Generic Name Dose Route Start Last Admin Trade Name Ishmaelq PRN Reason Stop Dose Admin Acetaminophen 975 mg 06/03/23 12:13 06/03/23 12:22 Acetaminophen 325 Mg Tablet PO 06/03/23 12:14 975 mg ONCE ONE Administration Morphine Sulfate 4 mg 06/03/23 11:23 06/03/23 12:30 Morphine Sulfate 4 Mg/Ml Cartridge IVPUSH 06/03/23 11:24 Not Given ONCE ONE Protocol Ondansetron HCl 4 mg 06/03/23 11:23 06/03/23 12:30 Ondansetron Hcl 4 Mg/2 Ml Vial IVPUSH 06/03/23 11:24 Not Given ONCE ONE Oxycodone HCl 10 mg 06/03/23 12:13 06/03/23 12:22 Oxycodone Hcl Immed Release 5 Mg Tablet PO 06/03/23 12:14 10 mg ONCE ONE Administration Medical Decision Making Medical Decision Making [facility] Narrative: 77 yr year old female history of obesity, frequent UTIs, hypertension, GERD, diabetes, fibromyalgia here with complaints of lower back pain. Per patient on Monday she had a trip and fall on an object in her living room. She landed on her buttocks. There was no head strike or loss of consciousness. Per family she started complaining of lower back pain last night. She denies any radiation of back pain. No associated weakness, numbness, tingling of lower extremities. No numbness in the groin. No bowel or bladder incontinence. No fevers or chills. Patient has not tried any [id number]-[id number] medications. She is currently on antibiotic of unknown. TTP to lumbar mid spine with no step-offs deformities. Normal neuro exam no focal deficits. No red flag symptoms. Will need labs, UA, CT lumbar spine. Will provide analgesia Differential Diagnosis Differential Diagnoses: The differential diagnosis associated with the presentation includes Compression fracture Low concern for retroperitoneal hemorrhage, intra-abdominal injury Lumbar strain Admission/Observation Consideration of admission/observation: Escalation of care including admission/observation considered No neurological deficits or red flag symptoms to suggest need for urgent MRI Pain is well controlled. I did offer short-term rehab to the family and they did not feel that the patient needs this and they can manage at home. Lab Data [facility] Lab Attestation statement: I reviewed the patient's lab results. 06/03/23 11:55 06/03/23 11:55 Labs: Lab Results 06/03/23 06/03/23 Range/Units 11:55 14:18 WBC 9.3 (4.8-10.8) X10*3/uL RBC 4.48 (4.20-5.50) X10*6/uL Hgb 13.0 (12.0-16.0) g/dl Hct 40.0 (37.0-47.0) % MCV 89.3 (80.0-98.0) fL MCH 29.0 (27.0-33.0) pg MCHC 32.5 (31.0-35.0) g/dl RDW 13.4 (11.0-16.0) % Plt Count 201 (160-400) X10*3/uL MPV 10.7 (9.4-12.3) fL Immature Gran % (Auto) 0.4 (0.0-0.4) % Neut % (Auto) 77.2 H (45-73) % Lymph % (Auto) 13.3 L (20-40) % [place] % (Auto) 8.4 (2-11) % Eos % (Auto) 0.6 (0-4) % Baso % (Auto) 0.1 (0-2) % Lymph # (Auto) 1.2 (1.2-4.9) X10*3/uL [place] # (Auto) 0.8 (0.1-1.2) X10*3/uL Eos # (Auto) 0.1 (0.0-0.4) X10*3/uL Baso # (Auto) 0.0 (0.0-0.2) X10*3/uL Abs Immat Gran (auto) 0.04 H (0.00-0.03) X10*3/uL Absolute Neuts (auto) 7.2 (2.0-8.3) x10*3/uL Absolute Nucleated RBC 0.000 (0.0-0.012) X10*3/uL Nucleated RBC % (auto) 0.0 (0.0-0.2) /100WBC Sodium 142 (135-145) mmol/L Potassium 4.2 (3.3-5.1) mmol/L Chloride 106 (96-108) mmol/L Carbon Dioxide 28 (22-29) mmol/L Anion Gap 12 (12-20) BUN 15 (9-16) mg/dL Creatinine 0.66 (0.5-1.4) mg/dL Estim Creat Clear Calc 80.9 Estimated GFR > 60 Random Glucose 175 H (60-115) mg/dL Calcium 10.0 D (8.4-10.2) mg/dL Urine Color Dark Yellow Urine Appearance Cloudy Urine pH 7.0 (5.0-9.0) Ur Specific [place] 1.015 (1.005-1.025) Urine Protein Trace (Neg-Trace) mg/dL Urine Glucose (UA) Negative (Negative) mg/dL Urine Ketones Negative (Negative) mg/dL Urine Blood Large (3+) H (Negative) Urine Nitrite Negative (Negative) Ur Leukocyte Esterase Small (1+) H (Negative) Urine RBC >20 H (0-2) /HPF Urine WBC 21-50 H (0-5) /HPF Ur Squamous Epith Cells 0-2 (0-2) /HPF Urine Bacteria None Seen (None Seen) Hyaline Casts 0-2 (0-2) /LPF Independent Interpretation I performed an independent interpretation of an: CT Scan Interpretation: I independently reviewed the CT scan and agree with rad report Radiology Impression Discussion of test interpretation with radiology: I have reviewed the radiologist's reading. Radiologist Impression: FINDINGS: Please note that artifact related to patient's body habitus somewhat limits assessment of the osseous structures. Within this limitation, there is a new slightly distracted comminuted fracture of the L1 vertebral body with the fracture plane violating the anterior cortex and extending obliquely to the right upper lateral cortex and to left inferior lateral cortex through a bridging lateral paraspinal phyte on the left. There is no extension into the posterior elements. A small amount of paravertebral/prevertebral hemorrhage/infiltration is seen. There may be slight progression of approximately 60% height loss associated of the L4 vertebral body likely from a comminuted compression fracture with associated degenerative change along the upper endplate rather than discitis osteomyelitis, particularly given relative preservation of the opposing L3 inferior endplate and the presence of adjacent vacuum disc phenomenon. Stable mild bony retropulsion of the L4 upper endplate indenting the thecal sac which in conjunction with spondylosis contributes to severe spinal canal and subarticular zone narrowing. Stable height loss associated with a chronic L5 upper endplate compression fracture. There is straightening of the normal lumbar lordosis. Multilevel disc space narrowing and scattered vacuum disc phenomenon with bridging prevertebral and paraspinal disc osteophytes. 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 There is apparent moderate to severe L4-L5, moderate L5-S1, and mild L2-L3 spinal canal stenosis and multilevel neural foraminal narrowing, most pronounced and severe on the left at L3-L4 and L5-S1 with mass effect along the exiting left L3 and L5 nerve roots, respectively. There is mild fatty atrophy of the paraspinal musculature. Partially imaged fatty atrophy of the gluteal compartment musculature, most pronounced of the gluteus fang muscles. Lobulated renal contour bilaterally and exophytic left midpole renal lesion, presumably cyst again seen. Scattered calcific atherosclerotic disease. Nonspecific thickening of the peritoneal reflections mild retroperitoneal achiness/fat stranding. Prior cholecystectomy.. Partially imaged leiomyomatous uterus.The abdominal aorta is of normal contour and caliber. Bridging ventral osteophytosis across the right sacroiliac joint. CT/CT lumbar spine wo IV con IMPRESSION: 1. New slightly distracted comminuted fracture of the L1 vertebral body violating the anterior cortex, right upper lateral cortex and left inferior lateral cortex through a bridging lateral paraspinal phyte on the left. No extension into the posterior elements. A small amount of paravertebral/prevertebral hemorrhage/infiltration is seen. 2. Query slight progression of approximately 60% height loss associated of the L4 vertebral body likely from a comminuted compression fracture with associated degenerative change along the upper endplate rather than discitis osteomyelitis, particularly given relative preservation of the opposing L3 inferior endplate and the presence of adjacent vacuum disc phenomenon. Stable mild bony retropulsion of the L4 upper endplate indenting the thecal sac which in conjunction with spondylosis contributes to severe spinal canal and subarticular zone narrowing. 3. 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 Independent Historian Clinical information obtained from an independent historian. History obtained from or confirmed by: EMS Daughter Prescription Management I considered prescription management with: Pain Medication Discharge Plan Discharge Clinical Impression: Closed compression fracture of L1 vertebra, Closed compression fracture of L4 vertebra Patient Disposition: Home, Self-Care Instructions: Vertebral Compression Fracture (ED), Procedures for Compression Fractures of the Spine (DC) Additional Instructions: You should follow-up with her primary care doctor for referral for physical therapy. You may also benefit from seeing a technician inventory specialist. We attached their number. For pain you should try Tylenol 1st. If this does not work you have the stronger pain medication to try. Prescriptions: New lidocaine [Lidoderm] 5 % adhesive patch,medicated 1 patch topical DAILY Qty: 30 0RF Rx Instructions: leave on most painful area for up to 12 hrs oxycodone 5 mg tablet 5 mg PO Q8H PRN (Reason: pain) Qty: 9 0RF Rx Instructions: Partial Fill upon patient request. No Action (DME) Chair, shower Misc See Rx Instructions .ROUTE .MEDSUPPLY Qty: 1 0RF Rx Instructions: As directed (DME) lancing device with lancets Kit See Rx Instructions .Route Qty: 1 0RF Rx Instructions: As directed colchicine [Colcrys] 0.6 mg tablet 0.6 mg PO DAILY Qty: 90 2RF Januvia 50 mg tablet 50 mg PO DAILY 90 Days Qty: 90 3RF isosorbide mononitrate 30 mg tablet extended release 24 hr 30 mg PO DAILY 90 Days Qty: 90 2RF (DME) OneTouch Ultra Test Strip See Rx Instructions .Route Qty: 100 5RF Rx Instructions: test 3x's per day (DME) lancets [ISVWorldTouch UltraSoft 2 Lancet] 30 gauge misc See Rx Instructions .Route Qty: 200 5RF Rx Instructions: test 3x's per day (DME) pen needle, diabetic [BD Laury 2nd Gen Pen Needle] 32 gauge x 5/32 needle See Rx Instructions .Route Qty: 300 3RF Rx Instructions: Use to inject insulin 4 times per day (DME) compr.stocking,knee,long,x-lrg Misc See Rx Instructions .Route Qty: 12 1RF Rx Instructions: WHITE SOCKS PLEASE atenolol 50 mg tablet 50 mg PO DAILY Qty: 30 3RF lidocaine 5 % adhesive patch,medicated 1 patch topical DAILY PRN (Reason: pain) Qty: 15 3RF Rx Instructions: leave on most painful area for up to 12 hrs Pradaxa 150 mg capsule 150 mg PO BID 90 Days Qty: 180 1RF baclofen 10 mg tablet 10 mg PO BID 30 Days Qty: 60 1RF (DME) blood-glucose meter [OneTouch Ultra2 Meter] Misc See Rx Instructions .Route Qty: 1 0RF Rx Instructions: test 3 times a day (DME) Air mattress overlay Misc See Rx Instructions .Route Qty: 1 0RF Rx Instructions: As directed (DME) air mattress See Rx Instructions .Route .MEDSUPPLY Qty: 1 0RF Rx Instructions: Length of need- lifetime albuterol sulfate 90 mcg/actuation HFA aerosol inhaler 2 puff PO Q6H PRN (Reason: bronchospasm) Qty: 8.5 0RF pantoprazole 40 mg tablet,delayed release (DR/EC) 40 mg PO DAILY@0630 polyethylene glycol 3350 [Miralax] 17 gram Powder In Packet 17 g PO DAILY sennosides [Senna Lax] 8.6 mg tablet 8.6 mg PO BID simvastatin 40 mg tablet 40 mg PO BEDTIME potassium chloride 10 mEq Capsule, Extended Release 10 meq PO DAILY ergocalciferol (vitamin D2) 1,250 mcg (50,000 unit) Capsule 1,250 mcg PO MO acetaminophen [Tylenol Extra Strength] 500 mg tablet 1,000 mg PO TID furosemide 20 mg tablet 20 mg PO DAILY docusate sodium 100 mg capsule 100 mg PO DAILY insulin aspart U-100 [Novolog FlexPen U-100 Insulin] 100 unit/mL (3 mL) insulin pen See Protocol subcut TIDAC PRN (Reason: Hyperglycemia) Protocol: Insulin Correction Scale Less than or equal to 110 ---- Give (units): 0 111 to 150 Give (units): 0 151 to 200 Give (units): 2 201 to 250 Give (units): 4 251 to 300 Give (units): 6 301 to 350 Give (units): 8 Greater than 350 Give (units): 10 Call MD if Blood Glucose > : 350 Rx Instructions: Per sliding scale 0-24 units (DME) blood sugar diagnostic Strip See Rx Instructions Not Applicable QID Qty: 10 Rx Instructions: As directed (DME) blood pressure monitor [Blood Pressure Kit] Kit See Rx Instructions .ROUTE .MEDSUPPLY Qty: 1 0RF Rx Instructions: As directed (DME) humidifiers [Cool Mist Humidifier] Misc See Rx Instructions .ROUTE .MEDSUPPLY Qty: 1 0RF Rx Instructions: As directed (DME) Ultra-Light Rollator Misc See Rx Instructions .Route Qty: 1 0RF Rx Instructions: As directed flecainide 100 mg tablet 100 mg PO BID Qty: 180 1RF codeine-guaifenesin 10-100 mg/5 mL liquid 5 ml PO Q6H PRN (Reason: cough) 5 Days Qty: 120 0RF gabapentin 300 mg capsule 300 mg PO BID 30 Days Qty: 60 6RF (DME) hospital bed Kit See Rx Instructions .Route Qty: 1 0RF Rx Instructions: As directed (DME) Wheel chair Kit See Rx Instructions .Route Qty: 1 0RF Rx Instructions: As directed insulin degludec [Tresiba FlexTouch U-100] 100 unit/mL (3 mL) insulin pen 20 unit subcut BID Referrals: Fermin Deutsch MD, PhD [Physician] -
[2023-06-03 12:03] LABS: MANUAL DIFF FLAG NO
[2023-06-03 12:05] LABS: Basophils Percent Auto 0.1 % (0-2); Eosinophils Absolute Auto 0.1 X10*3/uL (0.0-0.4); Eosinophils Percent Auto 0.6 % (0-4); Imm Gran Abs Auto 0.04 X10*3/uL (0.00-0.03); Imm Gran Pct Auto 0.4 % (0.0-0.4); Lymphocytes Absolute Auto 1.2 X10*3/uL (1.2-4.9); Lymphocytes Percent Auto 13.3 % (20-40); Mean Corpuscular HGB Conc 32.5 g/dl (31.0-35.0); Mean Corpuscular Volume 89.3 fL (80.0-98.0); Mean Platelet Volume 10.7 fL (9.4-12.3); Monocytes Absolute Auto 0.8 X10*3/uL (0.1-1.2); Monocytes Percent Auto 8.4 % (2-11); Neutrophils Absolute Auto 7.2 x10*3/uL (2.0-8.3); Neutrophils Percent Auto 77.2 % (45-73); Platelet Count 201 X10*3/uL (160-400); Red Blood Count 4.48 X10*6/uL (4.20-5.50); Red Cell Distribution Width 13.4 % (11.0-16.0); White Blood Count 9.3 X10*3/uL (4.8-10.8)
--- NOTE | 2023-06-03 12:05 | PC.NURSE ---
spoke with daughter - abx for possible UTI with blood in the urine. fall with walker temper tantrum +HS on edge of sofa. +dementia. ok to walk with boot and walker to commode lower back pain started yesterday. fall on monday/monday toradol for pain
[2023-06-03 12:19] LABS: Anion Gap 12 (12-20); Blood Urea Nitrogen 15 mg/dL (9-16); Carbon Dioxide 28 mmol/L (22-29); Chloride 106 mmol/L (96-108); Creatinine Clr Calc Pharmacy 80.9; Estimated Glomerular Filt Rate > 60; Glucose Random 175 mg/dL (60-115); Potassium 4.2 mmol/L (3.3-5.1); Sodium 142 mmol/L (135-145)
[2023-06-03] MEDS: Acetaminophen 325 MG TABLET 975 MG PO (12:22)
[2023-06-03] MEDS: oxyCODONE HCl Immed Release 5 MG TABLET 10 MG PO (12:22)
[2023-06-03 13:01] VITALS: BP 129/52; PULSE 73; RESP 16; TEMP 36.7; O2SAT 94
--- NOTE | 2023-06-03 13:01 | MHC.EDTECH ---
T/w checked vitals on Pt, BP on L arm 88/68 and rechecked on R arm 129/52. Made RN (Alecia) aware.
[2023-06-03 14:38] LABS: Appearance Urine Cloudy; Color Urine Dark Yellow; Glucose Urine UA Negative (Negative); Leukocyte Esterase Urine Small (1+) (Negative); Nitrite Urine Negative (Negative); Specific Gravity - Urine 1.015 (1.005-1.025); UMIC TRIGGER UACC YES; Urine Blood Large (3+) (Negative); Urine Ketones Negative (Negative); Urine Protein Trace mg/dL (Neg-Trace)
[2023-06-03 14:40] LABS: Bacteria Urine None Seen (None Seen); Hyaline Casts Urine 0-2 /LPF (0-2); RBC Urine >20 /HPF (0-2); Squamous Epithelial Cell Urine 0-2 /HPF (0-2); UACC Culture Trigger YES; WBC Urine 21-50 /HPF (0-5)
[2023-06-03 17:29] LABS: Glucose, Whole Blood 134 mg/dL (60-115)
--- NOTE | 2023-06-03 17:54 | PC.NURSE ---
spoke to pts daughter again, who reports she is on her way over to review d/c paperwork
--- NOTE | 2023-06-03 19:08 | PC.NURSE ---
discharge paperwork reviewed with pts daughter. gave daughter pts scripts to get them filled. daughter to meet pt at her home with EMS is available for transport.
== END 2023-06-03 20:26 | disposition home or self-care (01) ==
PROVIDERS: Nurse Practitioner Family; Emergency Provider Student in an Organized Health Care Education/Training Program; PCP Physician Assistant
DX: S32.040A Wedge compression fracture of fourth lumbar vertebra, initial encounter for closed fracture (principal); S32.010A Wedge compression fracture of first lumbar vertebra, initial encounter for closed fracture; W01.0XXA Fall on same level from slipping, tripping and stumbling without subsequent striking against object, initial encounter; E10.9 Type 1 diabetes mellitus without complications; I10 Essential (primary) hypertension; I48.91 Unspecified atrial fibrillation; J44.9 Chronic obstructive pulmonary disease, unspecified; Z95.0 Presence of cardiac pacemaker; Z79.4 Long term (current) use of insulin; Z79.02 Long term (current) use of antithrombotics/antiplatelets; Z79.899 Other long term (current) drug therapy; Z87.440 Personal history of urinary (tract) infections; Y93.9 Activity, unspecified; Y92.039 Unspecified place in apartment as the place of occurrence of the external cause; Y99.9 Unspecified external cause status
CPT/HCPCS: 36415; 72131; 80048; 81001; 82947; 85025; 87086; 99284; 99285

== ENCOUNTER 2023-06-09 12:32 | Outpatient (REF) | payer OTHER, SELFPAY | END 2023-06-09 12:33 | disposition home or self-care (01) | LOC: HO.HOSX 12:32 | PROVIDERS: Visit Provider Physician Assistant | DX: Z13.89 Encounter for screening for other disorder (principal) ==

== ENCOUNTER 2023-06-13 15:19 | Outpatient (AMB) | payer OTHER, SELFPAY ==
--- NOTE | 2023-06-13 15:23 | A.OFFVIS_ITS ---
Intake Intake Visit Reasons: ED follow up Intake Note: PT her for ED follow up Allergies dapagliflozin [From Farxiga] Allergy (Unknown, Verified 06/01/23 11:42) yeast infection metformin Allergy (Unknown, Verified 06/01/23 11:42) Diarrhea amitriptyline Adverse Reaction (Intermediate, Verified 06/01/23 11:42) Anxiety clindamycin Adverse Reaction (Mild, Verified 06/01/23 11:42) Itching PFSH Medical History (Updated 06/13/23 @ 16:08 by Fermin Deutsch MD, PhD) Afib Unstable angina URI (upper respiratory infection) Mass of right kidney NADEGE (generalized anxiety disorder) GERD (gastroesophageal reflux disease) HTN (hypertension) Arthritis Insulin dependent type 1 diabetes mellitus Foot ulcer Fibromyalgia Coronary artery disease COPD (chronic obstructive pulmonary disease) Pacemaker Surgical History Hx laparoscopic cholecystectomy H/O vein stripping Tubal ligation status History of cataract surgery History of pacemaker Family History Father No problems noted. Mother No problems noted. Social History Household Members: Children Household Members Other:: son stays with her, family nearby Housing: Condominium Do you presently have visiting nurse or other home services: Yes Unable to assess alcohol history related to: Unknown Alcohol intake: never Patient Tobacco Use Status: Never used Tobacco e-Cigarette/Vaping Use: Never Used Second Hand Smoke Exposure: No Advance Directives Date on File: 06/17/20 service: No Current occupational status: retired and disabled Cognitive needs: Yes Hearing needs: No Vision needs: Yes Assessment & Plan Assessment & Plan (1) Stable burst fracture of first lumbar vertebra, initial encounter for closed fracture: Code(s): S32.011A - Stable burst fracture of first lumbar vertebra, initial encounter for closed fracture Plan Dear colleague On 06/13/2023 I saw Kandy Lemus for an osteoporotic traumatic L1 fracture that she sustained on 06/03/2023. The daughter states that she threw herself on the ground. A few days later she complained of back pain and was transported to the emergency room where CT scan showed a fracture of the anterior 1/3 of the L1 vertebral body with otherwise intact posterior elements. There is also an L4 compression fracture with more than 60% height loss of an indeterminate age. In the emergency room referred to my clinic for further evaluation. Her medical history is extensive and involves multiple comorbidities that make her a poor surgical candidate for any type of procedure. The good news is that no surgery is required. The L1 fracture is a stable fracture and can be managed conservatively with pain medications. I would like to follow up in 3 weeks with a standing x-ray. We briefly discussed kyphoplasty for the L4 fracture as maybe her back symptoms have been going on for a longer time. However, I think her medical comorbidities prevent any type of intervention. I will follow-up in 3 weeks with an x-ray. Thank you for allowing me take care of your patient. total time spent was 30 minutes in counseling ,coordination of plan, personal review of imaging, and subsequent plan Fermin Deutsch MD, PhD Spine Fellowship Trained Neurosurgeon Director, [facility] Orders: Orders XR lumbar spine 2-3V 3 Weeks S32.011A - Stable burst fracture of first lumbar vertebra, initial encounter for closed fracture Coding Level of Care Code New Pt Level 3 (84160) Diagnoses Stable burst fracture of first lumbar vertebra, initial encounter for closed fracture S32.011A
== END 2023-06-13 15:57 | disposition home or self-care (01) ==
PROVIDERS: PCP Physician Assistant; Visit Provider Neurological Surgery
DX: S32.011A Stable burst fracture of first lumbar vertebra, initial encounter for closed fracture (principal)
CPT/HCPCS: 99203

== ENCOUNTER → 2023-06-13 15:19 | Outpatient (BNVA) | payer OTHER, SELFPAY | PROVIDERS: PCP Physician Assistant; Visit Provider Neurological Surgery | DX: S32.011A Stable burst fracture of first lumbar vertebra, initial encounter for closed fracture (principal) | CPT/HCPCS: 99202 ==